=== PATIENT | female | born 1945 | race Caucasian/White ===

== ENCOUNTER 2022-08-26 10:20 | Emergency (ER) | payer MEDICARE, SELFPAY ==
[2022-08-26 10:28] VITALS: BP 190/76; PULSE 75; RESP 16; TEMP 36.8; O2SAT 96; BMI 25.8
[2022-08-26 10:33] VITALS: RESP 18
--- NOTE | 2022-08-26 10:37 | ED.GENADULT ---
HPI - General Adult General Chief complaint: General Medical Stated complaint: high bp Time Seen by Provider: 08/26/22 10:26 Source: patient Mode of arrival: ambulatory Limitations: no limitations History of Present Illness HPI narrative: this is 77 yo presented with asyntomatic HTN,she was started on amlodipine she did not tolerated the amlopidine constipation she has no chest pain nor SOB .She visited [facility] ED she had blood work she did not see a provider Onset (ago): day(s) (2) Radiation: non-radiation Relieving factors: none Exacerbating factors: none Associated symptoms: denies other symptoms Related Data Previous Rx's Medication Instructions Recorded lisinopril 10 mg tablet 10 mg PO DAILY #14 tabs 08/26/22 Allergies Allergy/AdvReac Type Severity Reaction Status Date / Time azithromycin Allergy Unknown Verified 08/26/22 10:34 sulfamethoxazole Allergy Unknown Verified 08/26/22 10:34 [From Bactrim] trimethoprim [From Bactrim] Allergy Unknown Verified 08/26/22 10:34 Review of Systems Review of Systems: Yes all other systems are reviewed and are negative Cardiovascular: Cardiovascular: Reports no additional cardiovascular complaints and Denies chest pain Respiratory: Respiratory: Reports no additional respiratory complaints and Denies cough Gastrointestinal: Gastrointestinal: Reports no additional gastrointestinal complaints [facility] Past Medical History [facility] Narrative: HTN Social History Social History Alcohol intake: unknown Smoked in Last 30 Days: No Use of substances other than those prescribed or required for medical reasons: Unknown Advance Directives: Yes Advance Directives on File: No Physical Exam ED Vital Signs: Vital Signs - 24 hr 08/26/22 10:28 08/26/22 10:33 08/26/22 11:50 Temperature 98.2 F 97.5 F Pulse Rate 75 66 Respiratory Rate 16 18 18 Blood Pressure 190/76 H 172/79 H Pulse Oximetry 96 98 Oxygen Delivery Method Room Air Room Air BMI result Body Mass Index 25.8 Const General: cooperative Nutritional Appearance: average body habitus Orientation/consciousness: oriented to person, oriented to time and patient oriented x3 HENMT Head: Yes normal to inspection Face and sinus: Yes normal facial exam Mouth: Normal oral and palatal mucosa present Teeth and gingiva: dentition normal Neck Neck: Yes full ROM Chest Chest palpation & inspection: normal inspection of the chest Resp Effort & Inspection: normal respiratory effort Auscultation: clear to auscultation bilaterally Cardio Jugular venous distension: no JVD Rate: regular rate Rhythm: regular rhythm GI Inspection: Yes normal to inspection Palpation (GI): Soft to palpation Skin General skin exam: no rashes or lesions noted Rashes: no rashes Neuro General: oriented to person, oriented to time and patient oriented x3 Cranial nerves: Yes CN's II-XII intact bilaterally Course Reevaluation(s) Reevaluation #1: Call placed to PCP [facility] Time: 10:47 Reevaluation #2: # 2 call to PCP no return call Reevaluation #3: I was able to speak with the nurse covering [facility] (PCP of the pt) she will make sure she will have appointment in the next few Days Time: 12:16 Medications Administered Discontinued Medications Generic Name Dose Route Start Last Admin Trade Name Freq PRN Reason Stop Dose Admin Lisinopril 10 mg 08/26/22 10:46 08/26/22 10:56 Lisinopril 10 Mg Tablet PO 08/26/22 10:47 10 mg ONCE ONE Administration Protocol Medical Decision Making Medical Decision Making [facility] Narrative: pt presented with asyntomatic HTN,as per [facility] Policy pt with asymptomatic HTN should be referred for outpatient follow up I will conctact her PCP Admission/Observation Consideration of admission/observation: Escalation of care including admission/observation considered Independent Interpretation I performed an independent interpretation of an: EKG Interpretation: NSR 68 no ischemic changes Tests considered The following testing was considered but not selected: considered blood work but not necessary per [facility] policy on asymptomatic HTN Chronic Conditions HTN Discharge Plan Discharge Clinical Impression: HTN (hypertension) Patient Disposition: Home, Self-Care Instructions: Hypertension (ED) Additional Instructions: Please call your primary Care Doctor Sunday Morning and arrange follow up,Blood Pressure need to be treated by Primary care doctor ,we will help you and give you 2 weeks supply for lisinopril 10 mg daily Prescriptions: New lisinopril 10 mg tablet 10 mg PO DAILY Qty: 14 0RF Referrals: Carlita Villegas MD [Primary Care Provider] - 2 days
--- NOTE | 2022-08-26 10:46 | ECG_ITS ---
Test Reason : HYPERTENTION Blood Pressure : / mmHG Vent. Rate : 068 BPM Atrial Rate : 068 BPM P-R Int : 134 ms QRS Dur : 074 ms QT Int : 398 ms P-R-T Axes : 074 049 073 degrees QTc Int : 423 ms Normal sinus rhythm Possible Left atrial enlargement Borderline ECG No previous ECGs available Referred By: Alon Escobar Electronically Signed By:SHANTA BOTELLO MD
--- NOTE | 2022-08-26 10:51 | PC.NURSE ---
Records request faxed to [facility] per provider request.
[2022-08-26] MEDS: lisinopriL 10 MG TABLET PO (10:56)
[2022-08-26 11:50] VITALS: BP 172/79; PULSE 66; RESP 18; TEMP 36.4; O2SAT 98
== END 2022-08-26 12:32 | disposition home or self-care (01) ==
PROVIDERS: Emergency Provider Emergency Medicine; PCP Internal Medicine
DX: I10 Essential (primary) hypertension (principal)
CPT/HCPCS: 93005; 99283; 99284

== ENCOUNTER 2023-11-19 21:11 | Emergency (ER) | payer MEDICARE, SELFPAY ==
--- NOTE | ~2023-11-19 | XR_ITS ---
EXAMINATION: XR WRIST, LEFT CLINICAL INFORMATION: Post reduction. COMPARISON: None available. TECHNIQUE: PA and lateral views of the left wrist. FINDINGS: There is improved alignment of the distal radial fracture status post closed reduction and casting. Cast material obscures overlying fine osseous detail. There is near neutral tilt of the distal radial articular surface on these images with slight persistent vertex anterior angulation at the fracture site. 4 mm negative ulnar variance. The transverse ulnar fracture is not well-seen. Bones are osteopenic. XR/XR wrist LT 2V IMPRESSION: Improved alignment of the distal radial fracture status post closed reduction and casting.
--- NOTE | ~2023-11-19 | XR_ITS ---
EXAMINATION: XR WRIST, LEFT CLINICAL INFORMATION: Left wrist, injury COMPARISON: None available. TECHNIQUE: PA, lateral, and oblique views of the left wrist. FINDINGS: There is a comminuted intra-articular fracture of the distal radius with vertex anterior angulation the fracture site and resultant dorsal tilt of the distal radial articular surface (43 degrees). A transverse fracture is also noted at the distal ulna without significant displacement. Surrounding soft tissues are edematous. Carpal bones appear intact. 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 XR/XR wrist LT min 3V IMPRESSION: Comminuted intra-articular fracture of the distal radius with dorsal tilt of the distal radial articular surface. Nondisplaced transverse fracture of the distal ulna.
[2023-11-19 21:43] VITALS: PULSE 73; RESP 16; TEMP 36.6; O2SAT 96; BMI 25.7
--- NOTE | 2023-11-19 23:25 | ED.GENADULT ---
HPI - General Adult General Chief complaint: Fall Stated complaint: L Wrist Inj/ Fall Time Seen by Provider: 11/19/23 23:25 History of Present Illness HPI narrative: The patient is a 78-year-old female who says that she went to her mailbox to get her mail. She says that she felt slightly dizzy after getting her mail and then turned around. When she turned she lost her balance and fell injuring her left wrist. She did not hit her head. There was no loss of consciousness. She did not injure anything other than her left wrist. No headache. No chest pain. Related Data Previous Rx's ?Medication ?Instructions ?Recorded lisinopril 10 mg tablet 10 mg PO DAILY #14 tabs 08/26/22 Allergies Allergy/AdvReac Type Severity Reaction Status Date / Time azithromycin Allergy Unknown Verified 11/19/23 21:44 sulfamethoxazole Allergy Unknown Verified 11/19/23 21:44 [From Bactrim] trimethoprim [From Bactrim] Allergy Unknown Verified 11/19/23 21:44 Review of Systems Review of Systems: Yes all other systems are reviewed and are negative [facility] Social History Social History Unable to assess alcohol history related to: Unknown Alcohol intake: unknown Smoked in Last 30 Days: No Advance Directives: No Advance Directives Information Provided: Yes Physical Exam ED Vital Signs: Vital Signs - 24 hr 11/19/23 21:43 11/20/23 00:52 Temperature 97.9 F 98.1 F Pulse Rate 73 80 Respiratory Rate 16 18 Blood Pressure 167/78 H Pulse Oximetry 96 96 Oxygen Delivery Method Room Air Room Air BMI result Body Mass Index 25.7 Const Other: The patient is awake and alert and does not appear in obvious distress. HENMT Other: No signs of trauma to the head. Eyes Other: Equal, conjunctivae clear Neck Other: Moving her neck easily Resp Effort & Inspection: normal respiratory effort Cardio Other: Good perfusion to the left hand, normal radial pulse of the left Skin Other: The skin is intact Neuro Other: Intact Sensation in the fingers Extrem Other: There is a silver fork type deformity at the left wrist. She is tender at the site of the deformity. Medications Administered Discontinued Medications Generic Name Dose Route Start Last Admin Trade Name Freq PRN Reason Stop Dose Admin Bupivacaine HCl 10 ml 11/19/23 23:33 11/19/23 23:44 Bupivacaine Mpf 0.25 % 10 Ml Vial INFILTRATI 11/19/23 23:34 10 ml ONCE ONE Administration Procedures Orthopedic Fracture Reduction Fracture #1: Time Out Performed: Yes Side: left Fracture Reduction Location: radius Analgesia: hematoma block Technique: finger traps Post Reduction X-rays Demonstrate: acceptable reduction Post-reduction neuro exam: intact Post-reduction vascular exam: intact Splint Applied: Yes Patient Tolerated Procedure: well Additional Comments: Sugar-tong splint applied with cast padding and Mike bandages. Medical Decision Making Medical Decision Making [facility] Narrative: The patient is a right-hand dominant 78-year-old who sustained a left wrist fracture when she fell in front of her house today. This is an isolated injury. It is a closed fracture. Dorsal angulation of the fracture fragment. I explained to the patient that a reduction of the deformity would be appropriate. She agreed to a planned closed reduction. I administered a hematoma block using 10 mL of 0.25 bupivacaine injected into the fracture hematoma. I prepped the skin of the dorsal wrist with Betadine and then used a 21 gauge needle to inject 10 mL of the bupivacaine under sterile conditions. The patient received good from the hematoma block. The arm was then hung from the index and ring fingers with weights at the elbow. Applied a sugar-tong splint with cast padding and Mike bandages. Postreduction x-rays showed improved alignment of the fracture fragments. The patient will be given a sling. She is advised to keep the fracture elevated. She should contact the orthopedic office in the morning. She will use Tylenol as needed for pain. Discharge Plan Discharge Clinical Impression: Closed fracture of left wrist Patient Disposition: Home, Self-Care Instructions: Wrist Fracture in Adults (ED) Additional Instructions: Keep your arm elevated so that the injury is at the level of your heart or higher. You may take 2 extra-strength acetaminophen (Tylenol up to 3 times a day as needed for pain. Contact the orthopedic office in the morning to set up a follow up appointment for further management of your fracture. Return to the emergency room if worse. Prescriptions: No Action lisinopril 10 mg tablet 10 mg PO DAILY Qty: 14 0RF Referrals: Debbie Zamorano MD [Physician] - (colles' type fracture) Print Language: Swazi
[2023-11-19] MEDS: BUPivacaine MPF 0.25 % 10 ML VIAL INFILTRATI (23:44)
[2023-11-20 00:52] VITALS: BP 167/78; PULSE 80; RESP 18; TEMP 36.7; O2SAT 96
--- NOTE | 2023-11-20 01:04 | MHC.EDTECH ---
Assisted with a sugar tongue to left arm,patient tolerated well, sling then applied per providers order.
[2023-11-20 01:23] VITALS: BP 118/80; PULSE 65; RESP 18; TEMP 36.6; O2SAT 100
[2023-11-20] MEDS: Acetaminophen 325 MG TABLET 975 MG PO (01:23)
== END 2023-11-20 01:24 | disposition home or self-care (01) ==
PROVIDERS: Emergency Provider Emergency Medicine; PCP Internal Medicine
DX: S52.502A Unspecified fracture of the lower end of left radius, initial encounter for closed fracture (principal); W18.30XA Fall on same level, unspecified, initial encounter; Y93.89 Activity, other specified; Y92.008 Other place in unspecified non-institutional (private) residence as the place of occurrence of the external cause; Y99.9 Unspecified external cause status
CPT/HCPCS: 25605; 29125; 73100; 73110; 99284; J0665

== ENCOUNTER 2023-11-21 09:50 | Outpatient (REF) | payer MEDICARE, SELFPAY ==
--- NOTE | ~2023-11-21 | XR_ITS ---
EXAMINATION: XR WRIST, LEFT CLINICAL INFORMATION: Pain. COMPARISON: Radiographs dated 11/20/2023 and 11/19/2023. TECHNIQUE: PA, lateral, and oblique views of the left wrist. FINDINGS: Fine bony detail is limited by overlapping cast material. There is 3 mm of posterior displacement of the distal radial fracture fragment, and the ulnar fracture fragment is in near-anatomic alignment. No dislocation is seen. There is mild generalized soft tissue swelling. No foreign body or soft tissue gas is seen. XR/XR wrist LT min 3V IMPRESSION: There is approximately 3 mm of posterior displacement of the distal left radial fracture fragment, and the distal left ulnar fracture fragment is in near anatomic alignment.
== END 2023-11-21 09:51 | disposition home or self-care (01) ==
LOC: HO.HOSX 09:50
PROVIDERS: Visit Provider Physician Assistant
DX: S52.502A Unspecified fracture of the lower end of left radius, initial encounter for closed fracture (principal); S52.602A Unspecified fracture of lower end of left ulna, initial encounter for closed fracture; W18.30XA Fall on same level, unspecified, initial encounter; Y93.9 Activity, unspecified; Y92.007 Garden or yard of unspecified non-institutional (private) residence as the place of occurrence of the external cause
CPT/HCPCS: 73110; 99202

== ENCOUNTER 2023-11-21 11:33 | Outpatient (AMB) | payer MEDICARE, SELFPAY ==
--- NOTE | 2023-11-21 11:46 | A.OFFVIS_ITS ---
Intake Vital Signs 11/21/23 11:52 Height 5 ft 3 in Weight 144 lb BMI 25.5 Handedness Right Intake Visit Reasons: FC - Left Distal Radius Fx 11/19/23 - Reduced Intake Note: Dayna is a 78 year old right hand dominant female who presents today with her daughter Aviva for a evaluation of her left wrist fx, DOI 11/19/23. Patient reports she went to her mailbox to get her mail. She reveals that she felt slightly dizzy after getting her mail and then turned around. When she turned she lost her balance and fell injuring her left wrist. Currently she is doing well, howver she is noticing swelling ing her fingers. SHe finds relief with taking tylenol. Allergies azithromycin Allergy (Verified 11/21/23 11:49) Unknown sulfamethoxazole [From Bactrim] Allergy (Verified 11/21/23 11:49) Unknown trimethoprim [From Bactrim] Allergy (Verified 11/21/23 11:49) Unknown HPI FC - Left Distal Radius Fx 11/19/23 - Reduced HPI Details 78-year-old right hand dominant female naty white presents with her daughter, Aviva, in the office today, as a new patient, for an evaluation of left wrist pain. Patient presented to the ED on 11/19/2023 status post getting dizzy when getting her mail, causing her to lose her balance and fall onto her left wrist. X-rays were obtained pre and post reduction. Her wrist was reduced while in the ED. She was placed in a sugar-tong splint with cast padding and an HANY bandage. She was also given a sling. While in the office today the patient reports she went to the mailbox to get her mail when she felt dizzy and lost her balance. She states she is currently doing well. However, she noticed swelling in her fingers. She finds relief with Tylenol. She denies numbness or tingling. Patient reports anesthesia makes her sick. Her daughter states she has bad reactions, like migraines, and is not sure what other reactions are. Patient has an allergy history, as follows: -Azithromycin; unknown -Sulfamethoxazole; unknown -Trimethoprim; unknown Patient is currently taking, as follows: -Lisinopril 10 mg PO daily Patient has a medical history, as follows: -Hypertension Patient has no known surgical history. [facility] Social History (Updated 11/21/23 @ 11:50 by Edward Casiano) Unable to assess alcohol history related to: Unknown Alcohol intake: never Patient Tobacco Use Status: Never used Tobacco Current occupation: right hand dominant Review of Systems Const All systems reviewed & are unremarkable except as noted in HPI and below Physical Exam Vital Signs: BMI result Body Mass Index 25.5 Const General: cooperative, healthy appearing, comfortable, no acute distress, well developed, alert and awake Orientation/consciousness: patient oriented x3 HEENT Head: Yes normal to inspection, Yes normocephalic and Yes atraumatic Eyes General: appearance normal, both eyes and all related structures Neck Neck: Yes normal visual inspection and Yes no lymphadenopathy Resp Effort & Inspection: normal respiratory effort and able to speak in complete sentences Cardio Rate: regular rate Peripheral pulses: Peripheral pulses 2+ throughout GI Inspection: Yes normal to inspection Palpation (GI): Soft to palpation Skin General skin exam: no rashes or lesions noted Neuro General: patient oriented x3 Extrem Other: Left upper extremity: Left upper extremity is currently in a splint. Moderate edema in the fingers. Able to flex and extend all digits. Has full sensation. Capillary refill is brisk. Psych Mental Status: mental status grossly normal Assessment & Plan Assessment & Plan (1) Fracture of left distal radius: Code(s): S52.502A - Unspecified fracture of the lower end of left radius, initial encounter for closed fracture Plan Ms. Goldberg is a 78-year-old right hand dominant female who presents with her daughter, Aviva, in the office today, as a new patient, for an evaluation of left wrist pain. Patient presented to the ED on 11/19/2023 status post getting dizzy when getting her mail, causing her to lose her balance and fall onto her left wrist. X-rays were obtained pre and post reduction. Her wrist was reduced while in the ED. She was placed in a sugar-tong splint with cast padding and an HANY bandage. She was also given a sling. While in the office today the patient reports she went to the mailbox to get her mail when she felt dizzy and lost her balance. She states she is currently doing well. However, she noticed swelling in her fingers. She finds relief with Tylenol. She denies numbness or tingling. Patient reports anesthesia makes her sick. Her daughter states she has bad reactions, like migraines, and is not sure what other reactions are. Patient has an allergy history, as follows: -Azithromycin; unknown -Sulfamethoxazole; unknown -Trimethoprim; unknown Patient is currently taking, as follows: -Lisinopril 10 mg PO daily Patient has a medical history, as follows: -Hypertension Patient has no known surgical history. I discussed in detail the procedure and what to expect pre and post operatively. We discussed the risks, benefits and alternatives to the surgery and the rehabilitation course. The risks include infection, bleeding, nerve injury, ongoing pain, swelling, and stiffness, perioperative risk of injury to bones and soft tissues, and blood clots. I have answered all questions and with their understanding they have consented to move forward with a left wrist ORIF to be performed on 11/29/[address] Debbie Zamorano. The case was discussed with Dr. Zamorano who was available to speak with me, but no available to see the patient and a collaborative treatment plan was made. The patient will remain in the splint she was given in the ED. We discussed for the patient to continue to monitor for edema in the left wrist. Should the edema severely increase or cause concern I encourage the patient or her daughter to call the office. I recommend working on motion in the digits of the left hand. A prescription for scopolamine base patch transdermal Q3D PRN for nausea to be applied on Sunday or Sunday (11/27/2023 or 11/28/2023). Her daughter was informed to discuss with Anesthesia about the prior reactions to anesthesia and concerns she may have about her mother when they call prior to surgery. A signed consent form was supplied to the director medical surgical in the office today. Follow- up will be at her post operative appointment, or sooner if needed. X-rays of the left wrist which were obtained while in the office today and were reviewed by me, Aviva Nick PA-C, redemonstrated a left distal radius fracture with dorsal angulation. X-rays of the left wrist (post-reduction), obtained on 11/20/2023, revealed: Improved alignment of the distal radial fracture status post closed reduction and casting. X-rays of the left wrist (pre-reduction), obtained on 11/20/2023, revealed: Comminuted intra-articular fracture of the distal radius with dorsal tilt of the distal radial articular surface. Nondisplaced transverse fracture of the distal ulna. Orders: Orders XR wrist LT min 3V Today M25.539 - Pain in unspecified wrist Medications: New scopolamine base 1 patch transdermal Q3D PRN 4 ea 0RF motion sickness Patient Instructions: Scribed by Svetlana Barajas medical esthetician, for Aviva Nick PA-C on 11/20/2023 at 11:39 am, EST. Coding Level of Care Code New Pt Level 4 (54816) Diagnoses Fracture of left distal radius S52.502A
[2023-11-21 11:52] VITALS: BMI 25.5
== END 2023-11-21 12:15 | disposition home or self-care (01) ==
PROVIDERS: PCP Internal Medicine; Visit Provider Physician Assistant
DX: S52.502A Unspecified fracture of the lower end of left radius, initial encounter for closed fracture (principal)
CPT/HCPCS: 99204

== ENCOUNTER 2023-11-29 08:55 | Day surgery (SDC) | payer MEDICARE, SELFPAY ==
--- NOTE | 2023-11-27 12:45 | HO.ANESPROP2 ---
Documented by User: Janie Jay NP 11/27/23 12:48 HPI - Anesthesia Eval Consult details Narrative: 78yo F for Left Radius Distal Fracture ORIF PONV - rx'd scop patch by ortho provider... [facility] Active Problems Active Problems: All Active Problems Fracture of left distal radius (Acute) Past Medical History Medical History Osteoporosis Allergies Elevated cholesterol PONV (postoperative nausea and vomiting) HTN (hypertension) Surgical History Surgical History Hx of colonoscopy Hx of left cataract extraction Hx of hysterectomy Hx of tonsillectomy Social History Social History Unable to assess alcohol history related to: Unknown Alcohol intake: never Patient Tobacco Use Status: Never used Tobacco Use of substances other than those prescribed or required for medical reasons: No Are you DNR?: No Advance Directives: No Advance Directives Information Provided: Yes Current occupation: right hand dominant Meds Allergies Allergy/AdvReac Type Severity Reaction Status Date / Time azithromycin Allergy Unknown Verified 11/29/23 09:21 sulfamethoxazole Allergy Unknown Verified 11/29/23 09:21 [From Bactrim] trimethoprim [From Bactrim] Allergy Unknown Verified 11/29/23 09:21 Home Medications ?Medication ?Instructions ?Recorded ?Confirmed ?Last Taken ?Type acetaminophen 500 mg tablet 1,000 mg PO TID PRN Pain 11/29/23 11/29/23 Unknown History (Acetaminophen Extra Strength) alendronate 70 mg tablet 70 mg PO QWEEK 11/29/23 11/29/23 Unknown History aspirin 81 mg tablet 81 mg PO DAILY 11/29/23 11/29/23 Unknown History calcium 600 mg capsule 600 mg PO DAILY 11/29/23 11/29/23 Unknown History cetirizine 10 mg tablet 10 mg PO DAILY 11/29/23 11/29/23 Unknown History dextromethorphan-guaifenesin 30 1 tab PO Q12H PRN Cough 11/29/23 11/29/23 Unknown History mg-600 mg tablet extended [id number] hr docusate sodium 100 mg tablet 100 mg PO DAILY 11/29/23 11/29/23 Unknown History multivitamin 1 tab PO DAILY 11/29/23 11/29/23 Unknown History pravastatin 10 mg tablet 10 mg PO DAILY 11/29/23 11/29/23 Unknown History Assessment and Plan Assessment Anesthesia Assessment: Chart Reviewed Documented by User: Kelsie Gastelum MD 11/29/23 11:28 [facility] Past Medical History Medical History Osteoporosis Allergies Elevated cholesterol PONV (postoperative nausea and vomiting) HTN (hypertension) Family History Family history of problems with anesthesia: No Surgical History Surgical History Hx of colonoscopy Hx of left cataract extraction Hx of hysterectomy Hx of tonsillectomy History of Problems with Anesthesia: No Social History Social History Unable to assess alcohol history related to: Unknown Alcohol intake: never Patient Tobacco Use Status: Never used Tobacco Use of substances other than those prescribed or required for medical reasons: No Are you DNR?: No Advance Directives: No Advance Directives Information Provided: Yes Current occupation: right hand dominant Meds Allergies Allergy/AdvReac Type Severity Reaction Status Date / Time azithromycin Allergy Unknown Verified 11/29/23 09:21 sulfamethoxazole Allergy Unknown Verified 11/29/23 09:21 [From Bactrim] trimethoprim [From Bactrim] Allergy Unknown Verified 11/29/23 09:21 Home Medications ?Medication ?Instructions ?Recorded ?Confirmed ?Last Taken ?Type acetaminophen 500 mg tablet 1,000 mg PO TID PRN Pain 11/29/23 11/29/23 Unknown History (Acetaminophen Extra Strength) alendronate 70 mg tablet 70 mg PO QWEEK 11/29/23 11/29/23 Unknown History aspirin 81 mg tablet 81 mg PO DAILY 11/29/23 11/29/23 Unknown History calcium 600 mg capsule 600 mg PO DAILY 11/29/23 11/29/23 Unknown History cetirizine 10 mg tablet 10 mg PO DAILY 11/29/23 11/29/23 Unknown History dextromethorphan-guaifenesin 30 1 tab PO Q12H PRN Cough 11/29/23 11/29/23 Unknown History mg-600 mg tablet extended [id number] hr docusate sodium 100 mg tablet 100 mg PO DAILY 11/29/23 11/29/23 Unknown History multivitamin 1 tab PO DAILY 11/29/23 11/29/23 Unknown History pravastatin 10 mg tablet 10 mg PO DAILY 11/29/23 11/29/23 Unknown History Exam Airway Mallampati Class: II TM Dist: >3cm Neck ROM: Full Heart: rrr Lungs: cta Assessment and Plan Assessment Anesthesia Assessment: Anesthesia Plan Discussed Final Anesthetic Review Family History of Problems with Anesthesia: No History of Problems with Anesthesia: No NPO: Yes ASA Class: III Final Preanesthetic Review: No Changes in Pt Med Stat, Meds/Allgs Chart Reviewed, Consent Obtained/Reviewed and Anes Risks/Benef Reviewed Patient Risk: Intermediate Procedure Risk: Intermediate Anesthetic Plan Anesthetic Plan: GA and Regional Block Disposition: Standard PACU
[2023-11-29] VITALS (7 sets, daily range): BP systolic 132–152; BP diastolic 57–72; PULSE 83–90; RESP 16; TEMP 36.4–36.8; O2SAT 94–99; BMI 25.3
--- NOTE | ~2023-11-29 | FL_ITS ---
EXAMINATION: XR FLUOROSCOPY WITH IMAGES CLINICAL INFORMATION: Distal radius fracture COMPARISON: 11/21/2023 TECHNIQUE: Fluoroscopy Supervised By: Physician. Fluoroscopy Time: 16.84 seconds. Cumulative Dose: 0.508 mGy. DAP: 0.0307 Gycm2. Images: 4. FINDINGS: Fluoroscopy provided for the purposes of surgical hardware placement. FL/FL guidance in OR IMPRESSION: Fluoroscopy provided.
--- NOTE | 2023-11-29 09:28 | P.OP_ITS ---
Operative Note Operative Note Date of Service: 11/29/23 Narrative: Operative Note Narrative: Preop diagnosis: 1. Left Distal radius fracture Postop diagnosis: Same Procedure: 1. Left Distal radius fracture open reduction internal fixation extra-articular Surgeon: Debbie Zamorano MD Anesthesia: General anesthesia plus regional block Findings: Metaphyseal distal radius fracture Implants: A 3 hole narrow Accu Med volar locking plate, with 5x 2.3 mm locking pegs/screws, and 3 x 3.5 mm cortical screws Tourniquet time: 36 minutes EBL: 5.0 ml Specimen: None Drains: None Complications: None Disposition: Brought to the recovery room in stable condition Plan: Follow-up in 10-14 days for wound check, suture removal and postop radiographs The patient will be placed in a volar wrist splint. Encouraged no lifting of anything heavier than a cell phone. Please encourage active and passive range of motion of the digits. Follow-up at 4-5 weeks postop for repeat radiographs. Indications: The patient is a 78 year old woman with left distal radius fractu re . The risks and benefits of operative treatment, including but not limited to risk of damage to blood vessels, nerves, tendons, infection, recurrence, persistent pain or numbness, incomplete resolution of preoperative symptoms, or need for further surgery were discussed with the patient and they wished to proceed with surgery. Procedure: Once consent was obtained patient was brought back to the operating suite and placed in the operating table in a supine position. A regional block was performed by the anesthesia team. Perioperative antibiotics and anesthesia was administered by the anesthesia team. A tourniquet was applied to the proximal aspect of the left upper extremity and the limb was prepped and draped in a standard surgical fashion. The limb was elevated exsanguinated with Esmarch bandage and the tourniquet inflated to 250 mm of mercury for a total tourniquet time of 36 minutes. The FluoroScan was used throughout the case to assess our reduction, and facilitate implant placement. A gentle closed reduction was 1st performed on the patient's left distal radius fracture. Was assessed radiographically before proceeding with the reduction internal fixation. I then made an 8 cm longitudinal incision over the distal aspect of the flexor carpi radialis tendon. The incision was made through the skin to the subcutaneous tissue using a 15. Blade. Then carefully dissected down to flexor carpi radialis tendon she tenotomy scissors. The FCR tendon sheath was then incised longitudinally using tenotomy scissors under direct visualization. The FCR tendon was then retracted ulnarly. I then made a longitudinal incision in the volar forearm fascia through the floor of FCR tendon sheath using tenotomy scissors under direct visualization. I identified the interval between the radial artery and the flexor tendons. This interval was developed further with my index finger, releasing some of the muscular fibers of the flexor pollicis longus. A dull weatlander retractor was then placed. I then created an ulnarly based flap of the pronator quadratus by releasing the radial and distal edges using a 15. Blade. A Toth elevator was used to elevate the pronator quadratus from the volar surface of the distal radius. This then revealed to us our distal radius fracture. An open reduction was then performed on our distal radius fracture. I then placed a short narrow 3 hole Accu Med volar locking plate on the volar surface of the distal radius. I placed a single K-wire through the distal aspect of the plate and into the distal radius. This was assessed using fluoroscopic images. I was satisfied with the placement of our plate. I then placed 5 X 2.3 mm locking screws/pegs in the distal aspect of the plate and distal radius by 1st drilling bicortically with a 1.8 mm drill bit, measuring with a depth gauge, and placing the appropriate length locking screws/pegs. The placement of our plate and screws was then assessed again using fluoroscopic images. The once satisfied with the placement of the volar locking plate and screws on the distal aspect of the distal radius, the plate was then reduced to the shaft of the radius. I then placed 3 x 3.5 mm cortical screws to the proximal aspect of the plate and into the shaft of the radius. This was done by 1st drilling bicortically with a 2.8 mm drill bit, measuring with a depth gauge, and placing the appropriate length screw. Final radiographs were then obtained. The DRUJ was assessed and found to be stable on exam. I was satisfied with our reduction and placement of all implants. At this point the wound was irrigated with normal saline. The tourniquet was then deflated and hemostasis was obtained with a brief period of local pressure and bipolar monopolar electrocautery. The subcutaneous layer was then reapproximated using some 4-0 Vicryl suture, and the skin edges were reapproximated using some 5 0 Prolene suture. The wound was then infiltrated with some 1% lidocaine with epinephrine postop pain control. A sterile dressing and a short dorsal splint allowing for active flexion and extension of the digits was applied. The patient appears to have tolerated the procedure well and with no complications. All digits were well vascularized conclusion of the case.
--- NOTE | 2023-11-29 09:28 | MHC.SHP ---
Pre-Procedural Eval Section A - 24 Hr Update-Section A only Date of Service: 11/29/23 The patient is an INPATIENT: No Changes since office visit: No Cold of Flu in the past 2 weeks, No New Medical Problems, No Changes in Medication and No Patient answered all questions The patient has been examined within 24 hours of the surgical procedure. The History & Physical has been completed within 30 days and I have reviewed it.: Yes Section B - Complete if H&P > 30 days Chief Complaint: Unspecified fracture of the lower end of left Allergies: Allergies Allergy/AdvReac Type Severity Reaction Status Date / Time azithromycin Allergy Unknown Verified 11/29/23 09:21 sulfamethoxazole Allergy Unknown Verified 11/29/23 09:21 [From Bactrim] trimethoprim [From Bactrim] Allergy Unknown Verified 11/29/23 09:21 Plan I have reviewed the history and physical and performed a pertinent physical examination on my patient. No changes have occurred unless specified. Time Spent With Patient Time: Total time managing care of this patient today ____ minutes.
[2023-11-29] MEDS: Lactated Ringers 1,000 ML 100 ML IVCONT (09:58)
== END 2023-11-29 15:40 | disposition home or self-care (01) ==
PROVIDERS: PCP Internal Medicine; Visit Provider Orthopaedic Surgery
PROC: (CPT 25607; principal; 2023-11-29 11:00)
DX: S52.552A Other extraarticular fracture of lower end of left radius, initial encounter for closed fracture (principal); W01.0XXA Fall on same level from slipping, tripping and stumbling without subsequent striking against object, initial encounter; Y93.89 Activity, other specified; Y92.007 Garden or yard of unspecified non-institutional (private) residence as the place of occurrence of the external cause; Y99.9 Unspecified external cause status; M25.532 Pain in left wrist; I10 Essential (primary) hypertension; Z79.899 Other long term (current) drug therapy; Z88.1 Allergy status to other antibiotic agents; Z88.2 Allergy status to sulfonamides
CPT/HCPCS: 25607; C1713; J0131; J0665; J0690; J1100; J2250; J2371; J2405; J2704; J2795; J3010

== ENCOUNTER → 2023-11-29 08:55 | Outpatient (BNV) | payer MEDICARE, SELFPAY | PROVIDERS: PCP Internal Medicine; Visit Provider Orthopaedic Surgery | DX: S52.502A Unspecified fracture of the lower end of left radius, initial encounter for closed fracture (principal) | CPT/HCPCS: 25607; 26727 ==

== ENCOUNTER 2023-12-12 13:27 | Outpatient (REF) | payer MEDICARE, SELFPAY ==
--- NOTE | ~2023-12-12 | XR_ITS ---
EXAMINATION: XR WRIST, LEFT CLINICAL INFORMATION: Left wrist pain. COMPARISON: 11/29/2023 fluoroscopy images, x-rays 11/21/2023 and dating back to 11/19/2023. TECHNIQUE: PA, lateral, and oblique views of the left wrist. FINDINGS: Status post ORIF of distal radial fracture with plate and screws. Hardware appears intact. There is improved alignment. Bones are diffusely demineralized. Redemonstration of negative ulnar variance. Redemonstration of previously noted transverse fracture of the distal ulna with some interval bridging callus formation. XR/XR wrist LT min 3V IMPRESSION: Status post ORIF of distal radial fracture with plate and screws. Hardware appears intact. There is improved alignment. Redemonstration of previously noted transverse fracture of the distal ulna with some interval bridging callus formation.
== END 2023-12-12 13:28 | disposition home or self-care (01) ==
LOC: HO.HOSX 13:27
PROVIDERS: Visit Provider Orthopaedic Surgery
DX: S52.502D Unspecified fracture of the lower end of left radius, subsequent encounter for closed fracture with routine healing (principal); S52.602D Unspecified fracture of lower end of left ulna, subsequent encounter for closed fracture with routine healing
CPT/HCPCS: 73110; 99212

== ENCOUNTER 2023-12-12 15:02 | Outpatient (AMB) | payer MEDICARE, SELFPAY ==
--- NOTE | 2023-12-12 15:22 | MHC.OFFVIS ---
Intake Visit Reasons: PO LT distal radius ORIF 11/29/23 AR Intake Note: Dayna 78 year old female presents today for her PO visit for her left distal radius ORIF from DOS 11/29/23 AR. Dressing removed and xrays updated on office. States she is having mild pain. Xrays updated in office. Allergies azithromycin Allergy (Verified 12/12/23 15:25) Unknown sulfamethoxazole [From Bactrim] Allergy (Verified 12/12/23 15:25) Unknown trimethoprim [From Bactrim] Allergy (Verified 12/12/23 15:25) Unknown HPI HPI PO LT distal radius ORIF 11/29/23 AR: Details: Dayna is a 78 year old right hand dominant woman who presents S/P left distal radius ORIF, DOS: 11/29/23. She is seen today with her daughter. She felt dizzy and fell outside on 11/19/23, injuring her left wrist. She says she is doing well overall, with some mild pain. She denies any numbness or tingling. [facility] Medical History Osteoporosis Allergies Elevated cholesterol PONV (postoperative nausea and vomiting) HTN (hypertension) Surgical History Hx of colonoscopy Hx of left cataract extraction Hx of hysterectomy Hx of tonsillectomy Social History Unable to assess alcohol history related to: Unknown Alcohol intake: never Patient Tobacco Use Status: Never used Tobacco Current occupation: right hand dominant Review of Systems Const All systems reviewed & are unremarkable except as noted in HPI and below Physical Exam Const General: no acute distress and alert Orientation/consciousness: patient oriented x3 Neuro General: patient oriented x3 Extrem Other: The patient was alert oriented and in no acute distress The incision is healing well with no erythema drainage or evidence of infection. Sutures removed and Steri-Strips applied She can make a fist and extend all her digits Wrist pronation: ~50 degrees Wrist supination: ~40 degrees Sensation is intact Cap refill is brisk Radiographs: 3 views of the left wrist were taken and viewed by me today in clinic. They show a distal radius fracture with satisfactory fracture alignment and position of all implants. There is also a distal ulna fracture with satisfactory fracture alignment. Psych Appearance: grossly normal Affect: normal affect Attitude: cooperative Assessment & Plan Assessment & Plan (1) Fracture of left distal radius: Code(s): S52.502A - Unspecified fracture of the lower end of left radius, initial encounter for closed fracture Category: Medical (2) Fracture of distal end of left ulna: Code(s): S52.602A - Unspecified fracture of lower end of left ulna, initial encounter for closed fracture Category: Medical Plan Assessment & Plan: 1. Left distal radius fracture, S/P ORIF From a fall, DOI: 11/19/23 DOS: 11/29/23 2. Left distal ulna fracture Satisfactory fracture alignment From a fall, DOI: 11/19/23 The patient appears to be doing well post-operatively I educated her & her daughter about the post-operative course She was fitted for a volar wrist splint, to be worn like a cast except for showering, for the next 2 weeks. She can remove this while at rest to work on ROM. After 2 weeks she can remove her splint when at home & at night. She will continue to wear her splint when out of the house. I discussed activity modifications, she is to lift nothing heavier than a cellphone for the next 4 weeks She will perform gentle finger & wrist ROM exercises at home, when out of her splint She is to avoid any underwater activities for the next week She is to avoid any driving for the next 2 weeks. She will follow up in 4 weeks, with X-rays 3V L wrist Scribed for Debbie Zamorano MD by Chito Benson emergency medical technician, on 12/12/23 at 3:40 PM, EST. Orders: Orders XR wrist LT min 3V Today M25.532 - Pain in left wrist Coding Level of Care Code Global (77323) Diagnoses Fracture of left distal radius S52.502A Fracture of distal end of left ulna S52.602A
== END 2023-12-12 15:50 | disposition home or self-care (01) ==
PROVIDERS: PCP Internal Medicine; Visit Provider Orthopaedic Surgery
DX: S52.502A Unspecified fracture of the lower end of left radius, initial encounter for closed fracture (principal); S52.602A Unspecified fracture of lower end of left ulna, initial encounter for closed fracture
CPT/HCPCS: 99024

== ENCOUNTER 2024-01-08 10:20 | Outpatient (REF) | payer MEDICARE, SELFPAY ==
--- NOTE | ~2024-01-08 | XR_ITS ---
EXAMINATION: XR WRIST, LEFT CLINICAL INFORMATION: Pain in left wrist COMPARISON: 12/12/2023 TECHNIQUE: PA, lateral, and oblique views of the left wrist. FINDINGS: The patient is status post ORIF of distal radial fracture with plate and screws. Hardware appears intact. There is no change in position or alignment of the fracture fragments. The bones are diffusely demineralized. Again noted is negative ulnar variance. Again noted is transverse fracture the distal ulna with increased sclerosis along the fracture cleft. XR/XR wrist LT min 3V IMPRESSION: 1. Status post ORIF distal radial fracture without evidence of hardware complication. 2. Healing distal ulnar fracture.
== END 2024-01-08 10:21 | disposition home or self-care (01) ==
LOC: HO.HOSX 10:20
PROVIDERS: Visit Provider Orthopaedic Surgery
DX: S52.602D Unspecified fracture of lower end of left ulna, subsequent encounter for closed fracture with routine healing (principal); S52.502D Unspecified fracture of the lower end of left radius, subsequent encounter for closed fracture with routine healing
CPT/HCPCS: 73110; 99212

== ENCOUNTER 2024-01-08 13:47 | Outpatient (AMB) | payer MEDICARE, SELFPAY ==
--- NOTE | 2024-01-08 13:57 | A.OFFVIS_ITS ---
Intake Visit Reasons: PO LT distal radius ORIF 11/29/23 AR-w/xray Intake Note: Dayna 78 year old female presents today for her PO visit for her left distal radius ORIF from DOS 11/29/23 AR. States she has been wearing her brace as a cast and only comes out of it for ROM exercise and hygiene purpose. Xrays updated in office. States her only concern today is that her incision will open. Allergies azithromycin Allergy (Verified 01/08/24 14:04) Unknown sulfamethoxazole [From Bactrim] Allergy (Verified 01/08/24 14:04) Unknown trimethoprim [From Bactrim] Allergy (Verified 01/08/24 14:04) Unknown HPI HPI PO LT distal radius ORIF 11/29/23 AR-w/xray: Details: Dayna is a 78 year old right hand dominant woman who presents S/P left distal radius ORIF, DOS: 11/29/23. She is seen today with her son. She felt dizzy and fell outside on 11/19/23, injuring her left wrist. She says she is doing well overall, with some mild pain. She denies any numbness or tingling. She says she is concerned her incision will open. She says she has been starting to drive again. [facility] Medical History Osteoporosis Allergies Elevated cholesterol PONV (postoperative nausea and vomiting) HTN (hypertension) Surgical History Hx of colonoscopy Hx of left cataract extraction Hx of hysterectomy Hx of tonsillectomy Social History Unable to assess alcohol history related to: Unknown Alcohol intake: never Patient Tobacco Use Status: Never used Tobacco Current occupation: right hand dominant Physical Exam Const General: no acute distress and alert Orientation/consciousness: patient oriented x3 Neuro General: patient oriented x3 Extrem Other: The patient was alert oriented and in no acute distress The incision is well-healed with no erythema drainage or evidence of infection. At first she could bring her fingertips to ~2cm from her palm With encouragement, and after working on ROM exercises in clinic, she was able to make a weak fist and extend all her digits. Wrist pronation: ~80 degrees Wrist supination: ~75 degrees Wrist flexion: ~30 degrees Wrist extension: ~35 degrees Sensation is intact Cap refill is brisk Radiographs: 3 views of the left wrist were taken and viewed by me today in clinic. They show a distal radius fracture with satisfactory fracture alignment and position of all implants. There is also a distal ulna fracture with satisfactory fracture alignment. Psych Appearance: grossly normal Affect: normal affect Attitude: cooperative Assessment & Plan Assessment & Plan (1) Fracture of left distal radius: Code(s): S52.502A - Unspecified fracture of the lower end of left radius, initial encounter for closed fracture Category: Medical (2) Fracture of distal end of left ulna: Code(s): S52.602A - Unspecified fracture of lower end of left ulna, initial encounter for closed fracture Category: Medical Plan Assessment & Plan: 1. Left distal radius fracture, S/P ORIF From a fall, DOI: 11/19/23 DOS: 11/29/23 2. Left distal ulna fracture Satisfactory fracture alignment From a fall, DOI: 11/19/23 The patient appears to be doing well post-operatively I educated her & her daughter about the post-operative course She was fitted for a volar wrist splint, to be worn like a cast except for showering, for the next 2 weeks. She can remove this while at rest to work on ROM. She will discontinue her wrist splint at this time. She will continue to wear her splint when out of the house for the next 2 weeks I discussed activity modifications, she is to begin to use her hand for lightweight activities for the next 4 weeks She will work on wrist & finger ROM exercises at home. I ordered OT hand therapy to work on wrist & finger ROM exercises, with a focus on flexion, extension, and making a fist. She will follow up in 4 weeks for a ROM check, no X-rays unless she has a new injury Scribed for Debbie Zamorano MD by Chito Benson, medical leader, on 01/08/24 at 2:05 PM, EST. Orders: Orders XR wrist LT min 3V 01/08/24 M25.532 - Pain in left wrist OT Evaluation and Treatment 01/08/24 S52.502A - Unspecified fracture of the lower end of left radius, initial encounter for closed fracture, S52.602A - Unspecified fracture of lower end of left ulna, initial encounter for closed fracture Coding Level of Care Code Global (61740) Diagnoses Fracture of left distal radius S52.502A Fracture of distal end of left ulna S52.602A
== END 2024-01-08 14:26 | disposition home or self-care (01) ==
PROVIDERS: PCP Internal Medicine; Visit Provider Orthopaedic Surgery
DX: S52.502A Unspecified fracture of the lower end of left radius, initial encounter for closed fracture (principal); S52.602A Unspecified fracture of lower end of left ulna, initial encounter for closed fracture
CPT/HCPCS: 99024

== ENCOUNTER 2024-02-12 10:15 | Outpatient (AMB) | payer MEDICARE, SELFPAY ==
--- NOTE | 2024-02-12 10:22 | A.OFFVIS_ITS ---
Vital Signs 02/12/24 10:24 Height 5 ft 2 in Weight 140 lb BMI 25.6 Handedness Right Intake Visit Reasons: OV- f/u LT distal radius ORIF 11/29/23 Intake Note: Dayna is a 78 year old right hand dominant female who presents today for her post operative visit s/p left distal radius ORIF 11/29/23. Patient reports she has been wearing her splint at first for everything except showering and rest but has not been using it lately so she can allow her wrist to have more movement. She has been working on lightweight lifting, gentle ROM and states it has been coming along well. She soaks her hand in warm water every morning and massages her incision for relief. Has been going to OT twice a week and has one more visit this week. Improvement in ROM and is able to make a closed fist. Allergies azithromycin Allergy (Verified 02/12/24 10:25) Unknown sulfamethoxazole [From Bactrim] Allergy (Verified 02/12/24 10:25) Unknown trimethoprim [From Bactrim] Allergy (Verified 02/12/24 10:25) Unknown HPI HPI OV- f/u LT distal radius ORIF 11/29/23: Details: Dayna is a 78 year old right hand dominant woman who returns for a ROM check, S/P left distal radius ORIF, DOS: 11/29/23 & distal ulna fracture. She is seen today with her son. She felt dizzy and fell outside on 11/19/23, injuring her left wrist. She says she is doing well overall, and has been attending OT hand therapy. She feels her ROM has improved somewhat and she is happy with this. She has been soaking her hand in warm water every morning to help with her morning stiffness. She denies any numbness or tingling. [facility] Medical History Osteoporosis Allergies Elevated cholesterol PONV (postoperative nausea and vomiting) HTN (hypertension) Surgical History Hx of colonoscopy Hx of left cataract extraction Hx of hysterectomy Hx of tonsillectomy Social History Unable to assess alcohol history related to: Unknown Alcohol intake: never Patient Tobacco Use Status: Never used Tobacco Current occupational status: retired Current occupation: right hand dominant Physical Exam Vital Signs: BMI result Body Mass Index 25.6 Const General: no acute distress and alert Orientation/consciousness: patient oriented x3 Neuro General: patient oriented x3 Extrem Other: The patient was alert oriented and in no acute distress The incision is well-healed She was able to make a fist and extend all her digits. Fracture completely nontender Symmetrical pronosupination Wrist flexion: ~70 degrees Wrist extension: ~70 degrees Sensation is intact Cap refill is brisk Psych Appearance: grossly normal Affect: normal affect Attitude: cooperative Assessment & Plan Assessment & Plan (1) Fracture of left distal radius: Code(s): S52.502A - Unspecified fracture of the lower end of left radius, initial encounter for closed fracture Category: Medical (2) Fracture of distal end of left ulna: Code(s): S52.602A - Unspecified fracture of lower end of left ulna, initial encounter for closed fracture Category: Medical Plan Assessment & Plan: 1. Left distal radius fracture, S/P ORIF From a fall, DOI: 11/19/23 DOS: 11/29/23 2. Left distal ulna fracture Satisfactory fracture alignment From a fall, DOI: 11/19/23 The patient appears to be doing well post-operatively She will discontinue her splint at this time. She can resume all normal activities as tolerated She will continue to work on wrist & finger ROM exercises at home. She will continue to attend OT hand therapy, her last scheduled session is on 02/13/24. She is very happy with the results of her surgery in her care. She will follow up prn. Scribed for Debbie Zamorano MD by Chito Benson biomedical instrument technician, on 02/12/24 at 10:50 AM, EST. Coding Level of Care Code Global (80381) Diagnoses Fracture of left distal radius S52.502A Fracture of distal end of left ulna S52.602A
[2024-02-12 10:24] VITALS: BMI 25.6
== END 2024-02-12 10:53 | disposition home or self-care (01) ==
PROVIDERS: PCP Internal Medicine; Visit Provider Orthopaedic Surgery
DX: S52.502A Unspecified fracture of the lower end of left radius, initial encounter for closed fracture (principal); S52.602A Unspecified fracture of lower end of left ulna, initial encounter for closed fracture
CPT/HCPCS: 99024

== ENCOUNTER → 2024-02-12 10:15 | Outpatient (BNVA) | payer MEDICARE, SELFPAY | PROVIDERS: PCP Internal Medicine; Visit Provider Orthopaedic Surgery | DX: S52.502D Unspecified fracture of the lower end of left radius, subsequent encounter for closed fracture with routine healing (principal); S52.602D Unspecified fracture of lower end of left ulna, subsequent encounter for closed fracture with routine healing | CPT/HCPCS: 99212 ==

== ENCOUNTER 2024-02-14 11:00 | Outpatient (RCR) | payer MEDICARE, SELFPAY | END 2024-02-14 12:56 | disposition home or self-care (01) | LOC: HO.OT 11:00 | PROVIDERS: PCP Internal Medicine; Visit Provider Orthopaedic Surgery | DX: S52.602D Unspecified fracture of lower end of left ulna, subsequent encounter for closed fracture with routine healing (principal); S52.502D Unspecified fracture of the lower end of left radius, subsequent encounter for closed fracture with routine healing | CPT/HCPCS: 97035; 97110; 97112; 97140; 97166; 97530 ==

== ENCOUNTER 2024-10-10 14:30 | Inpatient (IN) | payer MEDICARE, SELFPAY ==
--- NOTE | ~2024-10-10 | XR_ITS ---
CLINICAL HISTORY: post reduction 2 view right wrist Comparison: CR/AL - XR WRIST RT MIN 3V - 10/10/24 20:25 EST CR/SR - XR WRIST RT MIN 3V - 10/10/24 15:28 EST Findings: Acute displaced fracture of the distal radial and ulna metaphysis. No radiopaque foreign body. IMPRESSION: Postreduction of the distal radial and ulnar fracture. This document has been electronically signed by: Duc Nunez MD on 10/10/2024 21:25:09
--- NOTE | ~2024-10-10 | CT_ITS ---
EXAMINATION: CT CERVICAL SPINE WITHOUT CONTRAST CLINICAL INFORMATION: Status post fall. COMPARISON: None available. TECHNIQUE: Contiguous axial images through the cervical spine using 3 mm collimation with bone and soft tissue algorithm. Sagittal and coronal reformatted images acquired. This CT examination was performed using dose optimization techniques as appropriate, variously including the following: *Automated exposure control *Adjustment of mA and/or kV according to patient size (this includes techniques or standardized protocols for targeted exams where dose is matched to indication/reason for exam; i.e. extremities or head) *Use of iterative reconstruction technique DLP: 259 mGy centimeter. FINDINGS: Craniocervical junction is intact. Degenerative changes in the periodontal C1 region and the right occipital condyle C1 joint. Multilevel marginal osteophyte formation and endplate sclerosis subchondral cyst formation and decreased intervertebral disc height C3 C5 and C6-7 levels. Grade 1 anterolisthesis C7-T1 likely degenerative. Multilevel facet joint hypertrophy more conspicuous at C3-4 C6-7 and to a lesser extent C4-5. C1 is intact. C2 is intact. C3 is intact. Right facet joint hypertrophy. C4 is intact. Bilateral facet joint hypertrophy. C5 is intact. Left-sided facet joint hypertrophy. C6 is intact. Left-sided facet joint hypertrophy. C7 is intact. Facet joint hypertrophy bilaterally. No prevertebral compartment hematoma. Calcified plaques in the carotid bulbs and both ICAs more conspicuous on the right side. Retention cyst, sphenoid sinus. Low density nodules in the right thyroid lobe. The thyroid gland is not enlarged. Bilateral apical scarring Tympanic cavities and mastoid air cells are aerated.. CT/CT cervical spine wo IV con IMPRESSION: Multilevel cervical spondylosis C3 C7 without acute fracture or traumatic-related listhesis. Fleischner guidelines were followed. Electronically signed by: Zeke Garcia MD 10/10/2024 03:37 PM EST
--- NOTE | ~2024-10-10 | XR_ITS ---
CLINICAL HISTORY: post reduction 2 view right wrist Comparison: CR/SR - XR WRIST RT MIN 3V - 10/10/24 15:28 EST Findings: Acute displaced fracture of the distal radial and ulnar metaphysis. No radiopaque foreign body. IMPRESSION: Postreduction of the acute fracture of the distal radius and ulna. This document has been electronically signed by: Dcu Nunez MD on 10/10/2024 21:23:57
--- NOTE | ~2024-10-10 | FL_ITS ---
EXAMINATION: FL GUIDANCE ONLY HISTORY: ORIF COMPARISON: Correlation is made with plain films of the right wrist dated 10/10/2024. TECHNIQUE: Fluoroscopy time: 79.24 seconds. Cumulative Dose: 2.1166 mGy. DAP: 0.1279 mGym2 Images: 12. FINDINGS: Images demonstrate internal fixation of the previously seen fracture of the distal radius with a sideplate and multiple orthopedic screws. There is also internal fixation of the previously noted fracture of the distal ulna with a pin. FL/FL guidance in OR IMPRESSION: Fluoroscopy during procedure. Please see procedure report for additional information. Electronically signed by: Iain Yen MD 10/14/2024 07:42 AM EDT
--- NOTE | ~2024-10-10 | CT_ITS ---
CLINICAL HISTORY: right hip pain CT abdomen and pelvis without contrast Comparison: None Findings: There are multiple foci of atelectasis and/or scarring within the visualized lungs. No pleural effusion. Unremarkable gallbladder and solid organs. No urolithiasis. No bowel obstruction, pneumoperitoneum, or pneumatosis. Moderate distention of the urinary bladder. Prior hysterectomy. Normal appendix. Portions of the upper extremities were imaged as a part of the examination. There is a moderately displaced fracture of the distal metaphysis of the radius and an additional angulated fracture of the distal diaphysis of the ulna. There is a mildly comminuted fracture of the lateral aspect of the right superior pubic ramus without significant displacement. There is a fracture of the right sacral ala without significant displacement. There are foci of depression of the superior endplates of L3 and L4 which appear chronic and likely related Schmorl's nodes. IMPRESSION: 1. Acute fractures of the right superior pubic ramus, right sacral ala, right radius and right ulna. 2. Moderately severe distention of the urinary bladder. This document has been electronically signed by: Gracie Neff MD on 10/10/2024 18:01:56
--- NOTE | ~2024-10-10 | CT_ITS ---
EXAMINATION: CT HEAD WITHOUT IV CONTRAST HISTORY: head strike, fall, pain. TECHNIQUE: Unenhanced helical CT of the head was performed per standard departmental protocol. Coronal and sagittal reformats of the head were also evaluated. One or more of the following techniques was used for dose reduction: Automated exposure control, adjustment of the mA and/or kV according to patient size, use of iterative reconstruction technique. DLP: 663.97 mGy-cm COMPARISON: There are no prior studies for comparison. FINDINGS: BRAIN: There is diffuse prominence of the ventricular system and cortical sulci, consistent with atrophy. Periventricular and subcortical white matter hypodensities are noted which are nonspecific, but often seen in the setting of small vessel ischemic disease. There is a calcification along the left leaf of the tentorium which may related to a meningioma. There is no mass effect or midline shift. No intra- or extra-axial fluid collections are identified. SINUSES: There is a polyp versus mucous retention cyst in the right sigmoid sinus. The mastoid air cells and middle ear cavities are well pneumatized. ORBITS: The visualized orbits are unremarkable. BONES/SOFT TISSUES: The extracranial soft tissues are unremarkable. The calvarium is intact. No suspicious lytic or sclerotic lesions. CT/CT head/brain wo IV con IMPRESSION: No acute intracranial abnormality. Electronically signed by: Iain Yen MD 10/10/2024 03:32 PM [facility] [place]
--- NOTE | ~2024-10-10 | XR_ITS ---
EXAMINATION: XR WRIST, RIGHT CLINICAL INFORMATION: pain, injury, open fx COMPARISON: None available. TECHNIQUE: PA, lateral, and oblique views of the right wrist. FINDINGS: Comminuted cortical disruption distal metaphysis of the radius and ulna resulting in dorsal displacement and 1.5 cm overriding of the distal fragments. Osteopenia versus osteoporosis. The carpal bone appears intact. The metacarpals appear intact. XR/XR wrist RT min 3V IMPRESSION: Acute comminuted dorsally displaced fractures the distal metaphysis of the radius and ulna. Electronically signed by: Zeke Garcia MD 10/10/2024 03:45 PM [facility]
--- NOTE | ~2024-10-10 | XR_ITS ---
EXAMINATION: XR HIP, RIGHT CLINICAL INFORMATION: pain, injury COMPARISON: None available. TECHNIQUE: Two views of the right hip. AP view pelvis. FINDINGS: No acute cortical disruption or gross malalignment in the right hip. There is sclerosis of the articular surface in the acetabulum both hips. The bony pelvis is intact. Degenerative changes in the symphysis pubis and sacroiliac joints. No lytic or blastic lesions. Vascular calcifications in the thigh. Spondylosis at L4-5 and L5-S1.. XR/XR hip RT w PEL1V IMPRESSION: No acute fracture or dislocation, right hip. Peripheral arterial disease. Electronically signed by: Zeke Garcia MD 10/10/2024 03:47 PM [facility]
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
[2024-10-10 14:38] VITALS: BP 170/100; PULSE 78; O2SAT 98
[2024-10-10 14:51] VITALS: BP 185/78; PULSE 79; RESP 16; O2SAT 97; BMI 25.2
[2024-10-10] MEDS: fentaNYL citrate/PF 100 MCG/2 ML VIAL 50 MCG IVPUSH (14:59)
[2024-10-10 15:01] LABS: MANUAL DIFF FLAG NO
[2024-10-10] MEDS: Piperacillin Sodium/Tazobactam 3.375 GM in 0.9 % Sodium Chloride 50 ML IV ×2 (15:01→22:49)
[2024-10-10 15:03] LABS: Basophils Percent Auto 0.4 % (0-2); Eosinophils Absolute Auto 0.1 X10*3/uL (0.0-0.4); Eosinophils Percent Auto 0.6 % (0-4); Hematocrit 36.9 % (37.0-47.0); Hemoglobin 12.8 g/dl (12.0-16.0); Imm Gran Abs Auto 0.15 X10*3/uL (0.00-0.03); Imm Gran Pct Auto 1.8 % (0.0-0.4); Lymphocytes Absolute Auto 1.6 X10*3/uL (1.2-4.9); Lymphocytes Percent Auto 19.7 % (20-40); Mean Corpuscular HGB Conc 34.7 g/dl (31.0-35.0); Mean Corpuscular Volume 92.3 fL (80.0-98.0); Mean Platelet Volume 10.4 fL (9.4-12.3); Monocytes Absolute Auto 0.4 X10*3/uL (0.1-1.2); Monocytes Percent Auto 5.2 % (2-11); Neutrophils Absolute Auto 5.9 x10*3/uL (2.0-8.3); Neutrophils Percent Auto 72.3 % (45-73); Platelet Count 162 X10*3/uL (160-400); Red Cell Distribution Width 12.9 % (11.0-16.0); White Blood Count 8.1 X10*3/uL (4.8-10.8)
[2024-10-10 15:08] LABS: Prothrombin Time 11.8 SEC (10.9-12.4)
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
[2024-10-10 15:26] LABS: Alanine Aminotransferase 12 U/L (0-31); Albumin Level 4.1 g/dL (3.5-5.0); Anion Gap 16 (12-20); Aspartate Amino Transferase 25 U/L (5-31); Bilirubin Total 0.5 mg/dL (0.0-1.0); Blood Urea Nitrogen 15 mg/dL (9-16); Calcium 10.1 mg/dL (8.4-10.2); Carbon Dioxide 22 mmol/L (22-29); Chloride 105 mmol/L (96-108); Creatinine Clr Calc Pharmacy 51.3; Estimated Glomerular Filt Rate > 60; Glucose Random 125 mg/dL (60-115); Magnesium 1.8 mg/dL (1.6-2.6); Potassium 3.7 mmol/L (3.3-5.1); Sodium 139 mmol/L (135-145); Total Protein 7.7 g/dL (6.5-8.0)
[2024-10-10 17:10] LABS: Alkaline Phosphatase 46 U/L (39-117)
--- OUTSIDE RECORDS SUMMARY | 2024-10-10 17:21 | XMS_ITS | Clinical Summary ---
Author Organization 175 [facility] Address [address] [place] [address] Phone Care Team Providers Care Infection Control Manager Name Role Phone Carlita Villegas MD Primary Care Provider [phone] Allergies Active Allergy Reactions Criticality Noted Date Comments Azithromycin Nausea And Vomiting 01/20/2011 Ciprofloxacin Hcl Headache,Nausea And Vomiting 08/15/2012 Doxycycline Nausea And Vomiting 04/07/2014 Sulfa (Sulfonamide Antibiotics) 01/16/2006 Medications acetaminophen (TYLENOL) 325 mg tablet Take 2 Tablets by mouth every 6 hours as needed. Active aspirin (Vazalore) 81 mg capsule Take by mouth every evening. Active calcium carbonate (CALCIUM ORAL) Take by mouth. Active cetirizine HCl (CETIRIZINE ORAL) Take by mouth. Active DOCUSATE SODIUM ORAL Take by mouth as needed. Active ibuprofen (ADVIL,MOTRIN) 600 mg tablet TAKE 1 TABLET BY MOUTH EVERY 6 TO 8 HOURS NEEDED FOR PAIN 11/29/2023 Active MULTIVITAMIN ORAL None Entered Active alendronate (FOSAMAX) 70 mg tablet TAKE 1 TABLET BY MOUTH ONE TIME PER WEEK 4 tablet 1 06/19/2024 Active denosumab (PROLIA) 60 mg/mL syringe syringe Inject 1 mL (60 mg total) under the skin 1 (one) time for 1 dose. 1 mL 06/17/2024 Active lisinopriL (PRINIVIL,ZESTR IL) 5 mg tablet Take 1 tablet (5 mg total) by mouth 1 (one) time each day. Take in addition to 20 mg tab 90 tablet 1 06/25/2024 Active lisinopriL (PRINIVIL,ZESTR IL) 20 mg tablet Take 1 tablet (20 mg total) by mouth 1 (one) time each day. In addition to the 5 mg tab for a total of 25 mg daily 90 tablet 1 07/23/2024 Active pravastatin (PRAVACHOL) 10 mg tablet Take 1 tablet (10 mg total) by mouth 1 (one) time each day. 90 tablet 1 08/07/2024 Active Active Problems Problem Noted Date Diagnosed Date Hypertension 11/02/2022 Bilateral carotid artery stenosis 10/17/2022 Brain mass 08/11/2022 Overview (05/27/2024): Brain MRI 08/10/22: 0.9 x 1.2 cm mass on left tentorium, possibility of meningeal or other process Assessment & Plan (07/04/2024 10:50 AM EST): I reviewed the MRI details with the patient and her daughter. I agree that this is most likely a benign meningioma which is an incidental finding and not the cause of her rare dizziness. It is small and does not appear to have mass effect and at her age, the best course of action at this time is monitoring with surveillance imaging. We will plan on repeating her MRI in 1 year. She is agreeable with the plan. Ascending aorta dilatation 01/13/2022 Subclinical hypothyroidism 11/10/2021 Hyperlipidemia 03/13/2015 Overview (05/27/2024): Total cholesterol 205, LDL cholesterol 122, 10/08/2014. Allergic rhinitis 07/10/2014 Tubular adenoma 03/20/2012 Overview (05/27/2024): Tubular adenoma at the HF 2009. Normal CN to the mid right colon 03/20/2012. Next CN 2016. History of varicose veins 02/14/2012 Osteoporosis 12/30/2010 Headache 03/05/2007 Encounters Date Type Department Care Team Description 08/15/2024 9:00 AM EST - 08/15/2024 11:59 PM EST Hospital Encounter Radiology Department - [address] [address] Encounter for screening mammogram for breast cancer Discharge Disposition: Home or Self Care 08/13/2024 9:00 AM EST Office Visit Vascular Surgery - [place] [address] [place] [address] Priya Lopez MD Asymptomatic bilateral carotid artery stenosis (Primary Dx) 08/07/2024 1:15 PM EST Office Visit [facility] [address] [place] [address] Clifford Garcia PA Primary hypertension (Primary Dx); Hyperlipidemia, unspecified hyperlipidemia type from Last 3 Months Immunizations Name Administration Dates Next Due Influenza Quadravalent, MDCK , 0.5ml, preservative free (Flucelvax) 6mo and older 08/31/2023 Influenza trivalent, 0.5mL ( Fluad) 65yo and older 05/09/2024,04/25/2021,05/08/2019,04/16,04/22/2017,04/14/2010 Influenza trivalent, 0.5mL, preservative free (Fluarix; FluLaval; Fluzone) ages 6mo and older (Afluria) 3 years and older 04/18/2016 Influenza, Unspecified 03/29/2020,2017,04/18/2016,04/28 Moderna SARS-CoV-2 COVID-19, mRNA, LNP-S, preservative free 06/01/2022 Pneumococcal conjugate 13 va lent (Prevnar 13, PCV13) 2mo and older 09/01/2015 Pneumococcal conjugate 20 va lent (Prevnar 20, PCV 20) 2mo and older 11/10/2021 Pneumococcal polysaccharide 23 valent (Pneumovax 23) 2yo and older 06/01/2014 Td Tetanus diptheria (Tdvax) 7yo and older 02/14/2018 Zoster Live 03/17/2013 Zoster recombinant (Shingrix ) 19yo and older 05/31/2021 Surgical History Surgery Date Site/Laterality Comments HYSTERECTOMY 08/06/1986 PROCEDURE: HISTORICAL HYSTERECTOMY; COMMENT: bleeding COLONOSCOPY W/ BIOPSIES 04/07/2010 PROCEDURE: RI COLONOSCOPY STOMA W/BIOPSY SINGLE/MULTIPLE; COMMENT: Up to cecum, good preparation, 15mm polyp at ascending partially removed:tubular adenoma, transverse colon polyp removed.:ulcerated inflammatory polyp COLONOSCOPY 03/20/2012 PROCEDURE: RI COLONOSCOPY FLX DX W/COLLJ SPEC WHEN PFRMD; COMMENT: normal to mid right colon, very difficult exam. BREAST SURGERY 08/06/1986 Left PROCEDURE: RI UNLISTED PROCEDURE BREAST; COMMENT: benign Medical History Medical History Date Comments Headache(784.0) 03/05/2007 DX:Headache(784. 0) Benign neoplasm of colon 03/20/2012 DX:Aravind gn neoplasm of colon Varicose veins 02/14/2012 DX:Varicose vein s Osteoporosis 12/30/2010 DX:Osteoporosis Hyperlipidemia 03/13/2015 DX:Hyperlipidemi a; COMMENT: Total cholesterol 205, LDL cholesterol 122, 10/08/2014. Allergic rhinitis 07/10/2014 DX:Allergic rh initis Actinic keratosis 05/16/2013 DX:Actinic ker atosis; COMMENT: Actinic keratosis History of actinic keratoses 05/16/2013 DX: History of actinic keratoses; COMMENT: Actinic keratosis Hypertension 11/02/2022 DX:Hypertension Family History Medical History Relation Name Comments Breast cancer Aunt mat 50's Diabetes Brother 1 x 3 prostate cancer Brain Aneurysm Brother 2 x 1 Other: liver problems Father Breast cancer Maternal Grandmother 50's Other: Mother bowel perfor ation age 83; migraines Other: TIA Sister x 2 x2, age 76; car otid stenting, migraines Relation Name Status Comments Aunt mat 50's Alive Brother 1 x 3 Brother 2 x 1 Alive Father Maternal Grandmother 50's Mother Sister x 2 Alive Social History Tobacco Use Types Packs/Day Years Used Date Smoking Tobacco: Former Cigarettes Q uit: 08/06/1964 Smokeless Tobacco: Never Tobacco Cessation:Counseling Given: Not Answered Alcohol Use Standard Drinks/Week Comments No 0 (1 standard drink = 0.6 oz pur e alcohol) Comments No Sex and Gender Information Value Date Recorded Sex Assigned at Not on file Legal Sex Female 9:44 PM EST Gender Identity Not on file Sexual Orientation Not on file Obstetrics History Para Term AB IAB SAB Ectopic Multiple Livin g Live Births 3 3 3 3 Date Outcome GA Total Labor Labor/2nd/3rd Weight Sex Type Anes PTL Alena A1 A5 Name Clin Term Term Term Last Filed Vital Signs Vital Sign Reading Time Taken Comments Blood Pressure 130/72 08/13/2024 8:56 AM EST Pulse 72 08/13/2024 8:56 AM EST Temperature 36.4 ??C (97.6 ??F) 08/07/2024 1:19 PM ES T Respiratory Rate 16 08/13/2024 8:56 AM EST Oxygen Saturation 96% 06/17/2024 11:25 AM EST Inhaled Oxygen Concentration - - Weight 63 kg (139 lb) 08/13/2024 8:56 AM EST Height 160 cm (5' 3 ) 08/13/2024 8:56 AM EST Body Mass Index 24.62 08/13/2024 8:56 AM EST Plan of Treatment Upcoming Encounters Date Type Department Care Team (Late st Contact Info) Description 11/05/2024 2:00 PM EDT Office Visit Adult Medicine [address] [phone] Carlita Villegas MD [address] [place] [address] 06/17/2025 10:00 AM EST Office Visit Endocrinology [address] [phone] Gisell Villegas PA [address] [place] [address] 08/26/2025 10:00 AM EST Office Visit Vascular Surgery - [place] [address] [phone] Priya Lopez MD [address] [address] Health Maintenance Due Date Last Done Comments RSV Immunization Patients 60+ Years Old (1 - 1-dose 75+ series) 2019 Zoster Vaccines (3 of 3) 07/26/2021 05/31/2021, 03/06 Colorectal Cancer Screening: Colonoscopy 07/15/2022 05/08/2017 Depression Screening 07/15/2022 Falls Risk Assessment 07/15/2022 Medicare Annual Wellness Visit 07/15/2022 Social Influencers of Health Screening 07/15/2022 COVID-19 Vaccine ( season) 2024 06/01/2022, 06/06/2021, 09/30/2020, Additional history exists Hypertension/CHF/CAD Annual BMP Blood Test 06/03/2025 06/03/2024, 01/24/2024, 01/24/2024 DTaP,Tdap,and Td Vaccines (2 - Td or Tdap) 02/15/2028 02/14/2018 Cholesterol Screening (Lipid Panel) 06/03/2029 06/03/2024, 01/24/2024, 01/24/2024 Osteoporosis Screening (Bone Density Screening) 03/22/2033 03/22/2023, 06/14/2020, 05/06/2018 Pneumococcal Vaccine: 50+ Years Completed 11/10/2021, 09/01/2015, 06/01/2014 Influenza Vaccine Completed 05/09/2024, , 08/31/2023, Additional history exists HIB Vaccines Aged Out No longer eligi ble based on patient's age to complete this topic HPV Vaccines Aged Out No longer eligi ble based on patient's age to complete this topic Hepatitis A Vaccines Aged Out No long er eligible based on patient's age to complete this topic Hepatitis B Vaccines Aged Out No long er eligible based on patient's age to complete this topic IPV Vaccines Aged Out No longer eligi ble based on patient's age to complete this topic MMR Vaccines Aged Out No longer eligi ble based on patient's age to complete this topic Meningococcal ACWY Vaccine Aged Out N o longer eligible based on patient's age to complete this topic Meningococcal B Vacine Aged Out No lo nger eligible based on patient's age to complete this topic RSV Immunization Patients Under 20 months Aged Out No longer eligible based on patient's age to complete this topic Varicella Vaccines Aged Out No longer eligible based on patient's age to complete this topic Procedures Procedure Name Priority Date/Time Associated Diagnosis Comments MG MAMMO DIGITAL SCREENING W GIBRAN BILAT Routine 08/15/2024 9:14 AM EST Encounter for screening mammogram for breast cancer HM ANNUAL BMP BLOOD TEST Routine 01/24/2024 LIPID PANEL Routine 01/24/2024 DXA BONE DENSITY STUDY 1+ SITS AXIAL SKEL Routine 03/22/2023 10:49 AM EDT Age-related osteoporosis without current pathological fracture COLONOSCOPY Routine 05/08/2017 from Last 3 Months or Most Recently Relevant to Health Maintenance Results * MG Mammo Digital Screening w Gibran bilat (08/15/2024 9:14 AM EST) Anatomical Region Laterality Modality Breast Bilateral Mammography 08/15/2024 5:16 PM EST Impressions 08/15/2024 5:19 PM EST No mammographic evidence of malignancy. BREAST DENSITY: B - There are scattered areas of fibroglandular density. BI-RADS CATEGORY: 1 - NEGATIVE RECOMMENDATION: Screening bilateral mammogram is recommended in 1 year. MAMMO LOCATION: [facility], [address] [place] [address], [id number], . -------- FINAL REPORT -------- Dictated By: Karina Chang Dictated Date: 08/15/2024 17:16 ET Assigned Physician: Karina Chang Reviewed and Electronically Signed By: Karina Chang Signed Date: 08/15/2024 17:19 ET Workstation ID: [id number] Transcribed By: Self Edit Transcribed Date: 08/15/2024 17:16 ET Narrative 08/15/2024 5:19 PM EST EXAM: Screening Mammogram CLINICAL: 79 years old, Female, routine annual exam. ??History of a remote benign left excisional biopsy. COMPARISON: 08/01/2023 and as far back as 06/21/2020 ?? TECHNIQUE: Bilateral MLO and CC views were obtained digitally with 3-D mammogram (digital breast tomosynthesis). Computer-aided detection was utilized in evaluation of this exam (CAD). FINDINGS: No new suspicious mass, architectural distortion, or suspicious calcifications. Procedure Note Karina Chang MD - 08/15/2024 EXAM: Screening Mammogram CLINICAL: 79 years old, Female, routine annual exam. History of a remotebenign left excisional biopsy. COMPARISON: 08/01/2023 and as far back as 06/21/2020 TECHNIQUE: Bilateral MLO and CC views were obtained digitally with 3-Dmammogram (digital breast tomosynthesis). Computer-aided detection wasutilized in evaluation of this exam (CAD). FINDINGS: No new suspicious mass, architectural distortion, or suspiciouscalcifications. IMPRESSION: No mammographic evidence of malignancy. BREAST DENSITY: B - There are scattered areas of fibroglandular density. BI-RADS CATEGORY: 1 - NEGATIVE RECOMMENDATION: Screening bilateral mammogram is recommended in 1 year. MAMMO LOCATION: [facility], [address] [place] [address], [id number], . -------- FINAL REPORT -------- Dictated By: Karina Chang Dictated Date: 08/15/2024 17:16 ET Assigned Physician: Karina Chang Reviewed and Electronically Signed By: Karina Chang Signed Date: 08/15/2024 17:19 ET Workstation ID: [id number] Transcribed By: Self Edit Transcribed Date: 08/15/2024 17:16 ET Carlita Villegas MD IMG BI PROCEDURES Final Result * Annual BMP Blood Test (01/24/2024) Pathologist On license of [facility] Annual BMP Blood Test abstracted Historical Provider HEALTH MAINTENANCE Final Result * (ABNORMAL) Lipid panel (01/24/2024) Pathologist [facility] LDL/HDL Ratio 3 0 - 4 Triglycerides 88 0 - 150 mg/dL Cholesterol 189 0 - 200 mg/dL HDL 63 >=40 mg/dL LDL Cholesterol 109(A) 0 - 100 mg/dL Blood Venous blood specimen / Unknown Historical Provider LAB BLOOD ORDERABLES Edna l Result * DXA BONE DENSITY STUDY 1+ SITS AXIAL SKEL (03/22/2023 10:49 AM EDT) Anatomical Region Laterality Modality Bone Densitometr y 01/31/2023 10:0 7 AM EDT Narrative 03/22/2023 6:11 PM EDT BONE DENSITY SCAN (DEXA): FINDINGS: Lumbar Spine T-score is -2.0. ?? (SD relative to 20-29 y/o adult) Z-score is 0.6. ??(SD relative to age matched peers) This is considered osteopenia by WHO criteria. Left Hip T-score is -2.9. Z-score is -0.6. This is considered osteoporosis by WHO criteria. Comparison exam(s): 06/14/2020. ??5.3% increase in lumbar spine bone mineral density which is statistically significant at the 95% confidence level. ??No statistically significant change in left hip bone mineral density. IMPRESSION: IMPRESSION: ?? Osteoporosis by WHO criteria. The [facility] Department of Internal Medicine recommends using National Osteoporosis Foundation (NOF) guidelines in treatment decisions related to osteoporosis. NOF guidelines suggest considering treatment for postmenopausal women and men aged 50 or older presenting with the following: History of hip or vertebral fracture. T-score = -2.5 (DXA) at the femoral neck, total hip, or spine, after appropriate evaluation to exclude secondary causes. Low bone mass (T-score between -1.0 and -2.5 at the femoral neck or spine) AND a 10-year probability of a hip fracture = 3% OR a 10-year probability of a major osteoporosis-related fracture = 20% based on the [place]-adapted WHO algorithm Please note that all treatment decisions require clinical judgment and consideration of individual patient factors, including patient preferences, co-morbidities, previous drug use, risk factors not captured in the FRAX model (e.g., frailty, falls, vitamin D deficiency, increased bone turnover, interval significant decline in bone density) and possible under- or over-estimation of fracture risk by FRAX. Optional alternative screening schedule based on may Amaya., [facility] August 24, 2011 for patients with osteopenia (based on hip BMD T-score) is as follows: * ??advanced osteopenia (T scores -2.00 to -2.49), BMD testing every year * ??moderate osteopenia (T scores -1.50 to -1.99), BMD testing every 5 years mild osteopenia or normal BMD (T scores -1.50 and higher), BMD testing every 15 years Procedure Note Karina Chang MD - 09/11/2023 BONE DENSITY SCAN (DEXA): FINDINGS: Lumbar Spine T-score is -2.0. (SD relative to 20-29 y/o adult) Z-score is 0.6. (SD relative to age matched peers) This is considered osteopenia by WHO criteria. Left Hip T-score is -2.9. Z-score is -0.6. This is considered osteoporosis by WHO criteria. Comparison exam(s): 06/14/2020. 5.3% increase in lumbar spine bonemineral density which is statistically significant at the 95% confidence level. No statisticallysignificant change in left hip bone mineral density. IMPRESSION: IMPRESSION: Osteoporosis by WHO criteria. The [facility] Department of Internal Medicine recommendsusing National Osteoporosis Foundation (NOF) guidelines in treatment decisions related toosteoporosis. NOF guidelines suggest considering treatment for postmenopausal women and menaged 50 or older presenting with the following: History of hip or vertebral fracture. T-score = -2.5 (DXA) at the femoral neck, total hip, or spine, afterappropriate evaluation to exclude secondary causes. Low bone mass (T-score between -1.0 and -2.5 at the femoral neck or spine)AND a 10-year probability of a hip fracture = 3% OR a 10-year probability of a majorosteoporosis-related fracture = 20% based on the [place]-adapted WHO algorithm Please note that all treatment decisions require clinical judgment andconsideration of individual patient factors, including patient preferences, co- morbidities,previous drug use, risk factors not captured in the FRAX model (e.g., frailty, falls, vitaminD deficiency, increased bone turnover, interval significant decline in bone density) andpossible under- or over-estimation of fracture risk by FRAX. Optional alternative screening schedule based on may Am[facility]., [facility] for patients with osteopenia (based on hip BMD T-score) is as follows: * advanced osteopenia (T scores -2.00 to -2.49), BMD testing every year * moderate osteopenia (T scores -1.50 to -1.99), BMD testing every 5years mild osteopenia or normal BMD (T scores -1.50 and higher), BMD testingevery 15 years Lizbeth PRADHAN [facility] DXA PROCEDURES Final Result * Colonoscopy (05/08/2017) Colonoscopy no interpretatio n, abstacted Anatomical Region Laterality Modality Other Historical Provider HEALTH MAINTENANCE Final Result from Last 3 Months or Most Recently Relevant to Health Maintenance Insurance [employer] Care Teams Infection Control Manager Relationship Specialty Start Date End Date Carlita Villegas MD [address] [place] [address] PCP - General 08/25/22
--- OUTSIDE RECORDS SUMMARY | 2024-10-10 17:21 | XMS_ITS | Encounter Summary ---
Author Organization [facility] Address [address] [place] [address] Care Team Providers Care Freight Booker Name Role Phone Carlita Villegas MD Primary Care Provider [phone] Reason for Visit * Reason Comments Med Change Request Encounter Details Date Type Department Care Team ([facility] Contact Info) Description 07/10/2024 Telephone Adult Medicine [facility] [address] [place], [place] [phone] Gisell Villegas PA [address] [place] [address] Med Change Request Social History Tobacco Use Types Packs/Day Years Used Date Smoking Tobacco: Former Cigarettes Q uit: 08/06/1964 Smokeless Tobacco: Never Alcohol Use Standard Drinks/Week Comments No 0 (1 standard drink = 0.6 oz pur e alcohol) Comments No Sex and Gender Information Value Date Recorded Sex Assigned at Not on file Legal Sex Female 9:44 PM EST Gender Identity Not on file Sexual Orientation Not on file documented as of this encounter Progress Notes * Maida Malone MA - 09/26/2024 7:34 AM EST Paperwork submitted through [employer] 09/25/24. * Jaelyn Chang MA - 08/11/2024 2:27 PM EST Spoke See from [facility] for deliver for patient prolia. * Maida Malone MA - 07/15/2024 8:16 AM EST [phone] (home) [phone] (work) PT notified and is requesting status of prolia. PW went upstairs 07/04/24. * LORNE Johns - 07/15/2024 8:10 AM EST Patient can stop fosmax. Prolia paperwork is being processed. * Maida Malone MA - 07/14/2024 1:57 PM EST Images from the original note were not included. Component Ref Range & Units 1 mo ago (06/03/24) 5 mo ago (01/24/24) 1 yr ago (12/28/22) 2 yr ago (11/10/21) 3 yr ago (05/30/21) 5 yr ago (09/17/18) 5 yr ago (09/17/18) 5 yr ago (09/17/18) Blood Urea Nitrogen 5 - 25 mg/dL 20 17 15 14 13 15 CREAT 0.5 - 1.1 mg/dL 0.93 0.86 0.87 0.81 0.81 0.79 GLOMERULAR FILTRATION RATE >60 63 69 CM 68 CM > 60 R, CM > 60 R, CM > 60 R, CM Comment: This eGFR result was calculated using the CKD-EPI 2020 Creatinine Equation NA 135 - 145 mEq/L 139 139 141 142 141 140 R K 3.5 - 5.5 mmol/L 4.5 4.6 4.2 4.4 4.3 4.2 CL 96 - 110 mmol/L 107 105 107 107 107 104 CALCIUM 8.5 - 10.5 mg/dL 9.5 10.0 8.9 8.9 8.7 8.9 Albumin 3.2 - 5.0 G/dL 3.7 4.0 3.5 SGPT 10 - 60 U/L 16 21 18 18 GLUCOSE 70 - 100 mg/dL 84 92 CM 91 CM 89 CM 88 CM 85 CM Comment: Reference range applicable to fasting specimens only CARBON DIOXIDE (CO2) 21 - 32 mmol/L 27 27 28 31 31 31 ANION GAP 3 - 11 5 7 6 4 3 5 TOTAL PROTEIN (TP) 6.0 - 8.0 G/dL 6.9 7.2 6.8 BILIRUBIN TOTAL 0.0 - 1.4 mg/dL 0.6 0.4 0.5 SGOT 10 - 42 U/L 20 20 17 18 ALK PHOS 42 - 121 U/L 47 53 46 Resulting Agency [facility] Narrative Performed by: [employer] Release to patient->Immediate Specimen Collected: 06/03/24 8:59 AM Last Resulted: 06/03/24 1:54 PM Lab Flowsheet Order Details View Encounter Lab and Collection Details Routing Result History View Encounter Conversation CM=Additional comments R=Reference range differs from displayed range Result Care Coordination Patient Communication Released Not seen Back to Top Follow-up Encounters 06/03/2024 Orders Only Back to Top Other Results from 06/03/2024 Contains abnormal data CHG BLOOD COUNT COMPLETE AUTO&AUTO DIFRNTL WBC Order: [id number] Status: Final result Visible to patient: Yes (not seen) Next appt: None Dx: Mixed hyperlipidemia; Hair loss; Prim... 0 Result Notes 1 Follow-up Encounter Component Ref Range & Units 1 mo ago (06/03/24) 2 yr ago (11/10/21) 3 yr ago (05/30/21) 5 yr ago (09/17/18) 8 yr ago (02/25/16) 9 yr ago (03/15/15) 9 yr ago (10/08/14) WHITE BLOOD COUNT 4.8 - 10.8 x10-3/uL 4.3 Low 4.2 Low 4.1 Low 4.7 Low 5.0 R 4.6 Low R 3.3 Low R RED BLOOD COUNT 3.8 - 4.8 x10-6/uL 3.9 4.4 4.1 4.2 4.1 R 3.9 R 4.3 R Hemoglobin 11.5 - 16.0 g/dL 12.1 13.3 13.1 12.7 12.7 R 12.2 R 12.9 R Hematocrit 35 - 47 % 37.7 42.2 39.2 39.9 38.9 37.7 38.5 MEAN CORPUSCULAR VOLUME 79 - 98 fL 96.9 96.3 95.8 95.0 94.9 R 95.7 R 90.2 R MEAN CORPUSCULAR HEMOGLOBIN 27 - 32 pg 31.1 30.4 32.0 30.2 MEAN CORPUSCULAR HGB CONC 32 - 37 g/dL 32.1 31.5 Low 33.4 31.8 Low 32.6 R 32.4 R 33.5 R RED CELL DISTRIBUTION WIDTH 11 - 15 % 12.6 13.2 13.2 12.9 PLT COUNT 130 - 400 x10-3/uL 188 171 170 186 174 R 172 R 174 R MEAN PLATELET VOLUME 7 - 11 fL 11.1 High 11.2 High 10.9 11.3 High 10.2 R 10.5 R 11.2 High R NRBC % AUTO <1 % 0.0 0.0 0.0 0.0 NEUTROPHILS % % 59.7 59.2 60.8 60.6 65.9 R 61.9 R 55.7 R LYMPH % % 29.2 30.5 29.1 28.8 24.6 R 28.8 R 31.6 R MONO % % 8.6 7.7 8.1 8.2 7.7 R 7.8 R 9.7 R EOS % % 1.6 1.9 1.0 1.3 1.6 R 1.1 R 2.4 R BASO % % 0.7 0.5 0.5 0.9 0.2 R 0.4 R 0.6 R IMMATURE GRANULOCYTES % % 0.2 0.2 0.5 0.2 NRBC # AUTO <0.1 x10-3/uL 0.00 0.00 0.00 0.00 NEUT # 1.5 - 7.0 x10-3/uL 2.55 2.47 2.46 2.83 LYMPH # 1 - 5.0 x10-3/uL 1.25 1.27 1.18 1.34 MONO # 0.2 - 1.0 x10-3/uL 0.37 0.32 0.33 0.38 EOS # 0 - 0.5 x10-3/uL 0.07 0.08 0.04 0.06 BASO # 0 - 0.2 x10-3/uL 0.03 0.02 0.02 0.04 IMMATURE GRANULOCYTES # 0 - 0.03 x10-3/uL 0.01 0.01 0.02 0.01 Resulting Agency [facility] 06/17/24 NOV 06/17/25 * Irene St MA - 07/14/2024 1:42 PM EST Given by endo documented in this encounter Plan of Treatment Upcoming Encounters Date Type Department Care Team (Late st Contact Info) Description 11/05/2024 2:00 PM EDT Office Visit [facility] [place] - [address] [phone] Carlita Villegas MD [address] [place] [address] 06/17/2025 10:00 AM EST Office Visit Endocrinology - [address] [phone] Gisell Villegas PA [address] [place] [address] 08/26/2025 10:00 AM EST Office Visit Vascular Surgery - [address] [phone] Priya Lopez MD [address] [address] documented as of this encounter Visit Diagnoses Not on filedocumented in this encounter Care Teams Freight Booker Relationship Specialty Start Date End Date Carlita Villegas MD [address] [place] [id number] PCP - General 08/25/22 documented as of this encounter
--- OUTSIDE RECORDS SUMMARY | 2024-10-10 17:21 | XMS_ITS | Data Portability ---
Author Organization [facility], [address] Address [address] [place] [address] Care Team Providers Care Wallpaperer Name Role Phone DOLLY CHAN Primary Care Provider [phone] Assessment No assessment recorded. Plan of Treatment Reminders Order Date Submit Date Provider Last Modified By Organization Details Last Modified Time Details Appointments None recorded. Lab None recorded. Referral emergency medicine referral - Hypertensiv e crisis. need to rule out acute CO. [address] ([place]), [address] [place] [address], [address], 3 15:16:57 Procedures None recorded. Surgeries None recorded. Imaging None recorded. Medication Orders polymyxin B sulfate 10,000 unit-trimet hoprim 1 mg/mL eye drops 2022 023 [facility] #[id number], [address] [place], [address], 3 15:02:44 Patient TargetsNo targets recorded. Patient Instructions Encounter Date Encounter Id Patient Instructions Last Modified By Organization Details Last Modified Time 08/25/2022 [id number] Apply warm, mois t compresses over closed eyes 3-4 times per day for 10-15 minutes at a time. Do not return to work until after using the antibiotic drops for 24 hours. If your symptoms do not improve, worsen at any time, or if intense pain, redness, or burning occurs with use of the eye drops, stop the drops immediately and go to the ER. If you wear contact lenses, do not wear them for 2 days. after symptoms resolved. If you have disposable contacts, discard the pair you were wearing and start with a new pair. If they are not disposable, clean thoroughly before using again. [email or web address] Not available 08/25/2022 15:02:48 - As we discussed, you denied having any symptoms of your high blood pressure right now. Please follow up with your primary care provider as soon as possible to get further evaluation and - If you use tobacco or frequent alcohol use you should stop - weight loss can reduce blood pressure - 2 gram low-salt diet - continue medications as discussed your blood pressure is elevated you should follow-up with your Primary -doctor. - For any chest pain, shortness of breath, weakness or numbness to extremities, difficulty speaking, blurred vision, or headache unrelieved by medications you should go to Emergency room as this can be a medical emergency. [email or web address] Not available 08/25/2022 15:02:59 Reason for Referral Emergency Medicine Referral for Hypertensive crisis hypertensive crisis. need to rule out acute CO. Hypertensive crisis. need to rule out acute CO. Referring Physician: Enrico Galdamez, Urgent Care, Encounter Date: 08/25/2022 Problems Name Problem SNOMED Code Status Onset Date Resolution Date Notes Provider Name and Address Organization Details Recorded Time Osteoporosis 42934140 Active 2022 [facility] 3 14:30:52 Hypertensive disorder 12169919 Active 2022 LORNE Watters [facility] 3 14:30:59 Problem Notes None recorded. Medical Equipment None Reported. Allergies No known drug allergies Medications Name Sig Start Date Stop Date Status Note LastModified by Organization Details LastModified Time alendronate 70 mg tablet TAKE 1 TABLET BY MOUTH ONE TIME PER WEEK active Not Available Not Available No t Available amlodipine 5 mg tablet TAKE 1 TABLET BY MOUTH EVERYDAY AT BEDTIME active Not Available Not Available No t Available meclizine 25 mg tablet TAKE 1 TABLET BY MOUTH 3 TIMES DAILY NEEDED (DIZZINESS) . active Not Available Not Available No t Available polymyxin B sulfate 10,000 unit-trimeth oprim 1 mg/mL eye drops INSTILL 1 DROP INTO AFFECTED EYE(S) BY OPHTHALMIC ROUTE EVERY 6 HOURS 2022 active Not Available Not Available Not Avai lable Vitals Date Recorded Body height Body mass index (BMI) Body weight Oxygen saturation Oxygen saturation in Arterial blood by Pulse oximetry Heart rate Respiratory rate Body temperature Systolic blood pressure Diastolic blood pressure Systolic blood pressure Diastolic blood pressure Provider Name and Address Organization Details Last Updated DateTime 3 160.02 cm 25.3 kg/m2 07755.7 1 g 96 % 96 % 65 /min 20 /min 98.3 [degF] 194 mm[Hg] 96 mm[Hg] 200 mm[Hg] 120 mm[Hg] [facility]iva [facility]agu[facility] 3 15:06:49 Social History Question Answer Notes LastModified by Organizat ion Details LastModified Time Tobacco Smoking Status Never Smoker [facility] 08/25/2022 14:31:08 What Is Your Level Of Alcohol Consumption? None Information not available 08/25/2022 Have You Had Direct Contact, Or Contact During Intimacy, With Monkeypox Rash, Scabs, Or Body Fluids From A Person With Monkeypox? No Information not available 08/25/2022 Do You Use Any Illicit Or Recreational Drugs? No Information not available 08/25/2022 Have You Recently Traveled Abroad? No Information not available 08/25/2022 Do You Or Have You Ever Used Any Other Forms Of Tobacco Or Nicotine? No Information not available 08/25/2022 Sex: Unknown Functional Status None recorded. Mental Status None recorded. Family History Relationship Description Onset Age of this Age Resolved Age Notes LastModified by Organization Details LastModified Time Father No current problems or disability Not available 08/25 14:31:01 Mother No current problems or disability Not available 08/25 14:31:01 Medical History No medical history recorded. Gynecological HistoryNo gynecological history recorded. Obstetrics History GPAL:G 0 P 0 0 0 0 Immunizations Vaccine Type Date Status Note Provider Nam e and Address Organization Details Recorded Time COVID-19, mRNA, LNP-S, PF, 30 mcg/0.3 mL dose 1 completed [facility] 08/25/2022 14:30:37 COVID-19, mRNA, LNP-S, PF, 30 mcg/0.3 mL dose 1 completed Aviva Culver null, [place] - [facility] 08/25/2022 14:30:37 zoster live 3 completed Aviva Culver null, PA - [facility] 08/25/2022 14:30:38 Influenza, adjuvanted, trivalent, PF 8 completed Aviva Litzy null, PA - [facility] 08/25/2022 14:30:38 Pneumococcal conjugate PCV 13 6 completed Aviva Culver null, PA - [facility] 08/25/2022 14:30:38 Influenza, split virus, trivalent, PF 6 completed Aviva Culver null, PA - [facility] 08/25/2022 14:30:38 Influenza, split virus, trivalent, preservative 0 completed Aviva Litzy null, PA - [facility] 08/25/2022 14:30:38 Influenza, high-dose, trivalent, PF 9 completed Aviva Litzy null, PA - [facility] 08/25/2022 14:30:38 Pneumococcal conjugate PCV20, polysaccharide [id number] conjugate, adjuvant, PF 2 completed Aviva Litzy null, PA - [facility] 08/25/2022 14:30:38 zoster recombinant 1 completed Aviva Litzy null, PA - [facility] 08/25/2022 14:30:38 pneumococcal polysaccharide PPV23 4 completed Aviva Culver null, PA - [facility] 08/25/2022 14:30:38 Influenza, high-dose, trivalent, PF 7 completed Aviva Culver null, PA - [facility] 08/25/2022 14:30:38 COVID-19, mRNA, LNP-S, PF, 100 mcg/0.5mL dose or 50 mcg/0.25mL dose 1 completed Aviva Litzy null, PA - [facility] 08/25/2022 14:30:38 Td (adult), 2 Lf tetanus toxoid, preservative free, adsorbed 8 completed Aviva Litzy null, PA - [facility] 08/25/2022 14:30:38 Influenza, high-dose, quadrivalent, PF 1 completed Aviva Litzy null, PA - [facility] 08/25/2022 14:30:38 Past Encounters Encounter ID Performer Location Encounter Start Date Encounter Closed Date Diagnosis/Indication Diagnosis SNOMED-CT Code Diagnosis ICD10 Code Diagnosis Note [id number] [address] [place] [address] 09/15/2020 10:30:46 09/15/2020 12:24:20 [id number] [address] [place] [address] 04/23/2021 09:58:30 04/23/2021 12:42:40 [id number] Enrico Galdamez, [employer] [address] [place] [address] 08/25/2022 13:36:13 08/25/2022 15:10:22 Acute conjunctivitis of right eye 6577659053 32736 H10.31 Hypertensive crisis 7068 34895 I16.9 Health Concerns Section Related Observation LastModified by Organization Detai ls LastModified Time None Recorded Concern Status LastModified by Organization Details LastModified Time None Recorded Advance Directives Directive None Recorded Payers Encounter Date Sequence Insurance Name Policy Number Policy Celestin Covered Member ID Celestin Member ID Guarantor Name 09/15/2020 1 [employer] MED[employer] PLAN (MEDICARE REPLACEMENT HMO) [id number] Dayna Goldberg [id number] Dayna Goldberg 04/23/2021 1 [employer] MED[employer]AGE PLAN (MEDICARE REPLACEMENT HMO) [id number] Dayna Goldberg [id number] Dayna Goldberg 08/25/2022 1 [employer] MED[employer]VANTAGE PLAN (MEDICARE REPLACEMENT HMO) [id number] Dayna Goldberg [id number] Dayna Kulik Notes Date Note Type Note Provider Name and Address Organization Details Recorded Time 08/25/2022 text/html Eye problemsRepo rted bypatient.Notes:right eye redness more then left with yellow discharge. Also patient is hypertensive QH=887/120mmhg. Enrico Galdamez NP [address] [place], [address], [place] - [facility] 08/25/2022 15:08:45 OBGyn Episode No OBEpisode recorded.
--- OUTSIDE RECORDS SUMMARY | 2024-10-10 17:21 | XMS_ITS | Patient Health Record ---
Author Organization [facility] Address [address] [place] [address] Support Name Relationship Address Phone KEVIN PFEIFFER Guarantor Unknown [phone] Reason For Referral No Information Medications Medication SIG (Take, Route, Frequency, Duration) Notes Start Date End Date Status Calcium-Carb 600 + D 1 ORAL daily for -3 [facility] 2 Active Anita-D 12 Hour 60-120 1 ORAL twice daily for -3 [facility] 01/12/2012 Active Evista 60MG 1 ORAL daily for -3 [facility] 08/30/2012 Active Multivitamins 1 ORAL daily for -3 [facility] 01/12/2012 Active Problems Problem Type SNOMED Code ICD Code Onset Dates Problem Status W/U Status Risk Notes Problem Osteoarthritis (438542545) Osteoarthrosis, unspecified whether generalized or localized, unspecified site (715.90) Active confirmed Major Problem Osteoporosis (60801185) Unspecified osteoporosis (733.00) Active confirmed Major Problem Gynecological examination normal (162375964337896) Routine gynecological examination (V72.31) Active confirmed Diag Plan Of Treatment No Information Insurance Providers Payer Name Payer Address Payer Phone Subscriber Number Group Number Insured Name Patient Relationship to Insured Coverage Start Date Coverage End Date [employer] [facility] [address] [place] [address] [id number] KEVIN PFEIFFER Self - patient is the insured
[2024-10-10] MEDS: Acetaminophen 1,000 MG/100 ML PIGGYBACK 400 MG IV (17:29)
[2024-10-10] MEDS: Morphine Sulfate 4 MG/ML CARTRIDGE IVPUSH (17:29)
[2024-10-10] MEDS: ondansetron HCL 4 MG/2 ML VIAL IVPUSH ×2 (17:29→20:21)
[2024-10-10 17:30] VITALS: BP 199/96; PULSE 73; RESP 18; TEMP 36.4; O2SAT 95
--- NOTE | 2024-10-10 17:43 | P.CONOP_ITS ---
History of Present Illness HPI Consult date: 10/10/24 Chief complaint: FALL,-LOC,RT WRIST ANGULATION PER EMS Narrative: Patient is a 79 YO F who presents to the hospital after a fall Patient reports significant pain in both the R wrist and R groin area Patient reports a small, open wound on the ulnar aspect of the R wrist associated with signiffcant deformity XR taken in ED demonstrate displaced fractures of both the right distal radius and distal ulna Pelvic XR also concerning for potential nondisplaced R pubic ramus fracture No other acute complaints or concerns at this time Review of Systems 2 Review of Systems: Yes all other systems are reviewed and are negative [facility] Past Medical History Medical History Osteoporosis Allergies Elevated cholesterol PONV (postoperative nausea and vomiting) HTN (hypertension) Surgical History Surgical History Hx of colonoscopy Hx of left cataract extraction Hx of hysterectomy Hx of tonsillectomy Social History Social History Unable to assess alcohol history related to: Unknown Alcohol intake: never Patient Tobacco Use Status: Never used Tobacco Advance Directives: Yes Advance Directives on File: Yes Advance Directives Date on File: 11/29/23 Do you have a plan to hurt others: No Plan Current occupational status: retired Current occupation: right hand dominant Meds Allergies Allergy/AdvReac Type Severity Reaction Status Date / Time azithromycin Allergy Unknown Verified 10/10/24 14:51 sulfamethoxazole Allergy Unknown Verified 10/10/24 14:51 [From Bactrim] trimethoprim [From Bactrim] Allergy Unknown Verified 10/10/24 14:51 Home Medications ?Medication ?Instructions ?Recorded ?Confirmed ?Last Taken ?Type acetaminophen 500 mg tablet 1,000 mg PO TID PRN Pain 11/29/23 11/29/23 Unknown History (Acetaminophen Extra Strength) alendronate 70 mg tablet 70 mg PO QWEEK 11/29/23 11/29/23 Unknown History aspirin 81 mg tablet 81 mg PO DAILY 11/29/23 11/29/23 Unknown History calcium 600 mg capsule 600 mg PO DAILY 11/29/23 11/29/23 Unknown History cetirizine 10 mg tablet 10 mg PO DAILY 11/29/23 11/29/23 Unknown History dextromethorphan-guaifenesin 30 1 tab PO Q12H PRN Cough 11/29/23 11/29/23 Unknown History mg-600 mg tablet extended [id number] hr docusate sodium 100 mg tablet 100 mg PO DAILY 11/29/23 11/29/23 Unknown History multivitamin 1 tab PO DAILY 11/29/23 11/29/23 Unknown History pravastatin 10 mg tablet 10 mg PO DAILY 11/29/23 11/29/23 Unknown History lisinopril 20 mg tablet 20 mg PO DAILY 02/12/24 Unknown History Physical Exam 2 Vital Signs: Vital Signs: Last Vital Signs Temp 97.6 F 10/10/24 17:30 Pulse 73 10/10/24 17:30 Resp 18 10/10/24 17:30 BP 199/96 H 10/10/24 17:30 Pulse Ox 95 10/10/24 17:30 O2 Del Method Room Air 10/10/24 17:30 BMI result Body Mass Index 25.2 Extrem: Other: On inspection of the right wrist, there is noted to be a small, approximately 0.5-1cm laceration on the ulnar R wrist at the level of the fracture There is also a significant deformity of the R wrist, consistent with XR findings Patient reports tenderness to very gentle palpation of the R wrist Distal sensation intact Capillary refill brisk On inspection of the R leg, there is no visible deformity of the RLE No shortening or external rotation noted No ecchymosis of the RLE noted Distal sensation intact Capillary refill brisk Results Labs 10/10/24 14:56 10/10/24 14:56 Labs: Abnormal lab results 10/10/24 Range/Units 14:56 RBC 4.00 L (4.20-5.50) X10*6/uL Hct 36.9 L (37.0-47.0) % Immature Gran % (Auto) 1.8 H (0.0-0.4) % Lymph % (Auto) 19.7 L (20-40) % Abs Immat Gran (auto) 0.15 H (0.00-0.03) X10*3/uL Random Glucose 125 H (60-115) mg/dL H & H 10/10/24 Range/Units 14:56 Hgb 12.8 (12.0-16.0) g/dl Hct 36.9 L (37.0-47.0) % Coagulation 10/10/24 Range/Units 14:56 INR 1.0 (0.9-1.1) All other labs normal. Diagnostic results Wrist/Hand x-ray: report reviewed and image reviewed Assessment and Plan (1) Fracture of distal end of left ulna: Status: Acute (2) Fracture of left distal radius: Status: Acute (3) Pelvic fracture: Status: Acute Plan 1. Right open distal radius and distal ulna fractures, grade 1 Case is dicussed with Dr. Zamorano, and a collaborative treatment paln is formed: Patient is educated about this condition Patient is educated about the typical treatment course Patient would like to proceed with surgery Patient is educated on the risks and benefits of surgery, namely injury to blood vessels, nerves, tendons, and bones, infection, and surgical failure. Patient understands these risks and would like to proceed with operative intervention. Patient will be put on to the OR schedule on 10/13/24 for the following procedures: 1. I&D and ORIF of open right distal radius and ulna fractures, under general 2. R sided pelvic injury Awaiting final reads on CT scan NWB on RLE No neuro deficit noted Procedures Date of Service Date of Service: 10/10/24
--- NOTE | 2024-10-10 19:00 | PC.NURSE ---
morphine 4mg IV push administered at this time for 7/10 pain.
[2024-10-10] MEDS: LORazepam 2 MG/ML VIAL IVPUSH (20:19)
--- NOTE | 2024-10-10 21:06 | MHC.EDTECH ---
1000ml of urine emptied from ramirez bag.
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
--- NOTE | 2024-10-10 21:56 | PHA.MEDREC ---
Addendum entered by Chapo Conklin 10/10/24 22:20: reviewed Original Note: Pharmacy Consult ? Medication Reconciliation Pharmacy has completed the medication reconciliation. Spoke with patient and she was able to confirm her medications (including dose and how she takes them) despite being grogs and nodding off. She confirmed her Dr stopped the Alendronate a due to the Dr noticing it wasn't really working for the patient. She confirmed her Lisinopril and confirmed she takes a 5mg tab and 20mg tab together in the morning. She was able to confirm she took her medications this morning.
[2024-10-10 21:59] VITALS: BP 161/75; PULSE 73; RESP 16; TEMP 36.6; O2SAT 97
[2024-10-10] MEDS: Prochlorperazine Edisylate 10 MG/2 ML VIAL IVPUSH (22:36)
[2024-10-10] MEDS: Lidocaine HCl 1 % MPF 5 ML VIAL 10 ML SUBCUT (22:36)
[2024-10-10] MEDS: BUPivacaine MPF 0.25 % 30 ML VIAL SUBCUT (22:37)
[2024-10-10 22:42] VITALS: BP 166/68; PULSE 80; RESP 16; TEMP 36.7; O2SAT 96
[2024-10-11] VITALS (10 sets, daily range): BP systolic 110–146; BP diastolic 54–70; PULSE 72–96; RESP 14–18; TEMP 36.3–37.3; O2SAT 94–98
--- NOTE | 2024-10-11 03:51 | PC.NURSE ---
Pt transferred from stretcher to hospital bed by this RN and EDT. Pt tolerated well. pt resting in bed in no notable distress, call loving is within reach , plan of care ongoing.
[2024-10-11] MEDS: Piperacillin Sodium/Tazobactam 3.375 GM in 0.9 % Sodium Chloride 50 ML IV ×4 (06:08→22:45)
--- NOTE | 2024-10-11 07:53 | P.PNIM_ITS ---
Subjective Subjective Date of Service: 10/11/24 Interval History: Complaining of chronic postnasal drip that she relates to lisinopril, had nausea now resolved, complaining of some pelvic discomfort Tolerating diet no vomiting no diarrhea last bowel movement 1 day ago, Usually move bowels every 2 days Review of Systems All other system reviewed and are negative Physical Exam 2 Vital Signs: Vital Signs: Last Vital Signs Temp 98.0 F 10/11/24 06:12 Pulse 73 10/11/24 06:12 Resp 16 10/11/24 06:12 BP 138/60 10/11/24 06:12 Pulse Ox 95 10/11/24 06:12 O2 Del Method Room Air 10/11/24 06:12 O2 Flow Rate 2 10/11/24 03:52 BMI result Body Mass Index 25.2 Const: Other: General resting comfortably in no acute distress. Neck no JVD. CVS regular rate rhythm, Respiratory lungs clear to auscultation, no respiratory distress Gastrointestinal abdomen soft, non tender, bowel sounds audible Extremities no edema. Right arm in sling Neuro non focal Skin no rash Objective Data Active Medications Acetaminophen (Acetaminophen 325 Mg Tablet) 650 mg PO Q6H PRN PRN Reason: Pain, Mild 1-3,fever,headache Calcium Carbonate (Calcium Carbonate 750 Mg Tab.Chew) 750 mg PO Q4H PRN PRN Reason: Heartburn Calcium Carbonate (Calcium Oyster Shell Elemental 500 Mg Tablet) 500 mg PO BID [facility] Docusate Sodium (Docusate Sodium 100 Mg Capsule) 100 mg PO DAILY [facility] Guaifenesin/Dextromethorphan (Guaifenesin Dm 600/30 1 Tab Tab.Er.12h) 1 tab PO Q12H PRN PRN Reason: Cough Piperacillin Sod/Tazobactam (Sod 3.375 gm/ Sodium Chloride) 50 mls @ 100 mls/hr IV Q6H [facility] Last Infusion: 10/11/24 06:41 Dose: Infused Documented By: JOSE MARTIN Labetalol HCl (Labetalol Hcl 100 Mg/20 Ml Vial) 5 mg IVPUSH Q6H PRN PRN Reason: SBP >180 Lisinopril (Lisinopril 5 Mg Tablet) 5 mg PO DAILY RAYNE; Protocol Lisinopril (Lisinopril 20 Mg Tablet) 20 mg PO DAILY RAYNE; Protocol Loratadine (Loratadine 10 Mg Tablet) 10 mg PO DAILY RAYNE Magnesium Hydroxide (Milk Of Magnesia 30 Ml Oral.Susp) 30 ml PO DAILY PRN PRN Reason: Constipation Melatonin (Melatonin 3 Mg Tablet) 6 mg PO BEDTIME PRN PRN Reason: Insomnia Morphine Sulfate (Morphine Sulfate 4 Mg/Ml Cartridge) 4 mg IVPUSH Q4H PRN; Protocol PRN Reason: Pain, Severe (Pain Scale 7-10) Multivitamins/Vitamin C (Multivitamin Tablet) 1 tab PO DAILY RAYNE Ondansetron HCl (Ondansetron Hcl 4 Mg/2 Ml Vial) 4 mg IVPUSH Q8H PRN PRN Reason: Nausea and Vomiting Oxycodone HCl (Oxycodone Hcl Immed Release 5 Mg Tablet) 5 mg PO Q6H PRN PRN Reason: Pain, Moderate(Pain Scale 4-6) Pravastatin Sodium (Pravastatin Sodium 10 Mg Tablet) 10 mg PO DAILY [facility] Sodium Chloride (0.9 % Sodium Chloride Flush 3 Ml Syringe) 3 ml IVFLUSH QSHIFT RAYNE Last Admin: 10/11/24 00:13 Dose: Not Given Documented By: JOSE MARTIN Non-Admin Reason: 10 ml flush used Labs 10/10/24 14:56 10/10/24 14:56 Labs: Laboratory Results - last 24 hr 10/10/24 10/11/24 14:56 05:21 MCV 92.3 MCH 32.0 MCHC 34.7 RDW 12.9 Plt Count 162 MPV 10.4 Immature Gran % (Auto) 1.8 H Neut % (Auto) 72.3 Lymph % (Auto) 19.7 L [place] % (Auto) 5.2 Eos % (Auto) 0.6 Baso % (Auto) 0.4 Lymph # (Auto) 1.6 [place] # (Auto) 0.4 Eos # (Auto) 0.1 Baso # (Auto) 0.0 Abs Immat Gran (auto) 0.15 H Absolute Neuts (auto) 5.9 Absolute Nucleated RBC 0.000 Nucleated RBC % (auto) 0.0 Hold Purple Top SEE NOTE PT 11.8 INR 1.0 Anion Gap 16 Estim Creat Clear Calc 51.3 Estimated GFR > 60 Random Glucose 125 H Calcium 10.1 Magnesium 1.8 Total Bilirubin 0.5 AST 25 ALT 12 Alkaline Phosphatase 46 Total Protein 7.7 Albumin 4.1 Hold Green Top See Note Blood Type O Positive Antibody Screen NEGATIVE Assessment and Plan (1) Fracture of sacrum: Status: Acute (2) Closed fracture of pubic ramus: Status: Acute (3) Fracture of radius and ulna, open: Status: Acute (4) Pelvic fracture: Status: Acute (5) Fracture of left distal radius: Status: Acute (6) Fracture of distal end of left ulna: Status: Acute Plan 79-year-old female with a PMH significant for?HTN, HLD, and osteoporosis who presents to the ED with?right wrist and right hip pain after mechanical fall at home. Pt will be admitted to the hospital for treatment and further evaluation of acute open right wrist fracture and pubic fractures secondary to mechanical fall. Acute Right wrist open fracture Initial x-ray showed acute comminuted dorsally displaced fracture of distal metaphysis of radius and ulna Right wrist reduced, splinted, and put in sling in the ED Elevate arm with 1 pillow Continue empiric IV Zosyn, started 10/10/2024 IV morphine/oxycodone/ antiemetics Orthopedic consult with plan for surgery on Sunday Acute Pubic fractures Pelvis CT showing acute fractures of right superior pubic ramus and right sacral ala Non-weight bearing for now, continue supportive care Ortho consult PT/OT eval prior to discharge HTN Stable blood pressure on lisinopril 25 mg daily, but patient complaining of nasal drip since on lisinopril will transition to losartan Continue lisinopril Labetalol 5 mg IV p.r.n. for SBP >180 HLD Continue statin Full Code DVT Prophylaxis: Pneumatic compression due to impending surgery Pt will require continued inpatient hospitalization for treatment of?acute open right wrist fracture and pubic fracture secondary to mechanical fall that will require surgical intervention and administration of IV antibiotics and IV analgesics. Quality Stroke Does the patient have a stroke diagnosis?: No VTE Prior VTE?: No VTE Risk Level:: Medical - moderate - high VTE Device Contraindication: N/A - Device Ordered VTE Drug Contraindication: Treatment Not Indicated
[2024-10-11] MEDS: Calcium Oyster Shell Elemental 500 MG TABLET PO ×2 (08:32→21:50)
[2024-10-11] MEDS: Docusate Sodium 100 MG CAPSULE PO (08:32)
[2024-10-11] MEDS: Multivitamin TABLET 1 TAB PO (08:33)
[2024-10-11] MEDS: lisinopriL 5 MG TABLET PO (08:33)
[2024-10-11] MEDS: Pravastatin Sodium 10 MG TABLET PO (08:33)
[2024-10-11] MEDS: lisinopriL 20 MG TABLET PO (08:33)
[2024-10-11] MEDS: Loratadine 10 MG TABLET PO (08:33)
[2024-10-11] MEDS: 0.9 % Sodium Chloride Flush 3 ML SYRINGE IVFLUSH ×3 (08:34→22:45)
--- NOTE | 2024-10-11 10:31 | PM.PNORT ---
Subjective Subjective Date of Service: 10/11/24 Interval history: Patient was an 79-year-old female admitted to the hospital for evaluation of right open distal radius and distal ulna fractures, as well as right-sided sacral ala and superior pubic ramus fractures Patient was resting comfortably in bed this morning Pain well managed No acute events overnight No other acute complaints or concerns at this time Physical Exam Vital Signs: Vital Signs: Last Vital Signs Temp 98.4 F 10/11/24 08:21 Pulse 88 10/11/24 08:21 Resp 18 10/11/24 08:21 BP 129/58 L 10/11/24 08:33 Pulse Ox 96 10/11/24 08:21 O2 Del Method Room Air 10/11/24 08:21 O2 Flow Rate 2 10/11/24 03:52 BMI result Body Mass Index 25.2 Extrem: Other: Sugar-tong splint on left forearm and wrist clean, dry, intact No evidence of surrounding erythema, ecchymosis No evidence of infection Patient is able to flex and extend the digits of the left hand without difficulty Distal sensation intact Capillary refill brisk On inspection of the R leg, there is no visible deformity of the RLE No shortening or external rotation noted No ecchymosis of the RLE noted Distal sensation intact Capillary refill brisk Procedures Date of Service Date of Service: 10/11/24 Progress Note: A&P Assessment and plan (1) Closed fracture of pubic ramus: Status: Acute (2) Fracture of radius and ulna, open: Status: Acute (3) Fracture of sacrum: Status: Acute Plan 1. Open distal radius and distal ulna fractures Date of injury 10/10/2024 Continue IV antibiotics per Medicine Patient was to remain in splint at all times, splint to remain clean, dry, intact Plan for surgery on 10/13/[address] Zamorano Continue pain management Continue with all other recommendations per Medicine 2. Right sacral ala and superior pubic ramus fractures Date of injury 10/10/2024 Nonweightbearing on right lower extremity, should be in wheelchair for transfers Continue pain management Follow-up with orthopedics upon discharge Continue with all recommendations per Medicine Time Spent With Patient Time: Total time managing care of this patient today ____ minutes. Quality Stroke Does the patient have a stroke diagnosis?: No VTE Prior VTE?: No VTE Risk Level:: Medical - moderate - high VTE Device Contraindication: N/A - Device Ordered VTE Drug Contraindication: Treatment Not Indicated
[2024-10-11] MEDS: polyethylene glycoL 3350 17 GM POWD.PACK PO (13:42)
--- NOTE | 2024-10-11 15:37 | MHC.CM.PN ---
PT REPORTS SHE LIVES ALONE BUT HER DAUGHTER LIVES 8 MINUTES AWAY AND VISITS OFTEN SHE DENIES USE OF DME OR HOME SERVICES HCP ON FILE PCP: MIESHA CHAN IMM DELIVERED DCP TBD PENDING OT MARY [facility] PT REPORTS SHE WENT OUTPATIENT TO [facility] WHEN SHE FRACTURED HER OTHER WRIST SHE SAYS THIS WOULD BE HER PREFERRED DCP. HOWEVER IS UNSURE IF HER DAUGHTER COULD TRANSPORT
[2024-10-11] MEDS: Acetaminophen 325 MG TABLET 650 MG PO (21:50)
[2024-10-12 03:11] VITALS: BP 139/66; PULSE 88; RESP 18; TEMP 36.9; O2SAT 93
[2024-10-12] MEDS: Morphine Sulfate 4 MG/ML CARTRIDGE IVPUSH ×3 (03:31→20:57)
[2024-10-12] MEDS: Piperacillin Sodium/Tazobactam 3.375 GM in 0.9 % Sodium Chloride 50 ML IV ×4 (05:28→22:06)
[2024-10-12 07:27] VITALS: BP 131/68; PULSE 83; RESP 16; TEMP 36.9; O2SAT 93
[2024-10-12] MEDS: Multivitamin TABLET 1 TAB PO (08:27)
[2024-10-12] MEDS: Docusate Sodium 100 MG CAPSULE PO (08:28)
[2024-10-12] MEDS: Loratadine 10 MG TABLET PO (08:28)
[2024-10-12] MEDS: Pravastatin Sodium 10 MG TABLET PO (08:28)
[2024-10-12] MEDS: polyethylene glycoL 3350 17 GM POWD.PACK PO (08:28)
[2024-10-12] MEDS: Losartan Potassium 50 MG TABLET PO (08:28)
[2024-10-12] MEDS: Calcium Oyster Shell Elemental 500 MG TABLET PO ×2 (08:28→20:56)
[2024-10-12] MEDS: 0.9 % Sodium Chloride Flush 3 ML SYRINGE IVFLUSH ×3 (08:29→21:06)
[2024-10-12] MEDS: Acetaminophen 325 MG TABLET 650 MG PO ×2 (08:38→16:34)
--- NOTE | 2024-10-12 09:28 | PM.PNORT ---
Subjective Subjective Date of Service: 10/12/24 Interval history: Patient was an 79-year-old female admitted to the hospital for evaluation of right open distal radius and distal ulna fractures, as well as right-sided sacral ala and superior pubic ramus fractures Patient was resting comfortably in bed this morning Pain well managed No acute events overnight No other acute complaints or concerns at this time Physical Exam Vital Signs: Vital Signs: Last Vital Signs Temp 98.5 F 10/12/24 07:27 Pulse 83 10/12/24 07:27 Resp 16 10/12/24 07:27 BP 131/68 10/12/24 07:27 Pulse Ox 93 10/12/24 07:27 O2 Del Method Room Air 10/12/24 07:27 O2 Flow Rate 2 10/11/24 03:52 BMI result Body Mass Index 25.2 Extrem: Other: Sugar-tong splint on left forearm and wrist clean, dry, intact No evidence of surrounding erythema, ecchymosis No evidence of infection Patient is able to flex and extend the digits of the left hand without difficulty Distal sensation intact Capillary refill brisk On inspection of the R leg, there is no visible deformity of the RLE No shortening or external rotation noted No ecchymosis of the RLE noted Distal sensation intact Capillary refill brisk Procedures Date of Service Date of Service: 10/12/24 Progress Note: A&P Assessment and plan (1) Closed fracture of pubic ramus: Status: Acute (2) Fracture of radius and ulna, open: Status: Acute (3) Fracture of sacrum: Status: Acute Plan 1. Open distal radius and distal ulna fractures Date of injury 10/10/2024 Continue IV antibiotics per Medicine Patient was to remain in splint at all times, splint to remain clean, dry, intact Plan for surgery on 10/13/[address] Zamorano I educated the patient about the condition. I discussed both operative and nonoperative treatment options. The patient would like to proceed with surgery. The risks and benefits of operative treatment were discussed with the patient and the patient wishes to proceed with surgery. These risks include, but are not limited to, risk of damage to blood vessels, nerves, tendons, infection, recurrence, incomplete relief of preoperative symptoms, persistent pain, possible need for further surgery, and the risks associated with regional blocks and/or anesthesia. Plan is to take the patient to the operating room on 10/13/2024 for the following procedures: 1. I and D and ORIF of right distal radius and distal ulna 2. Right sacral ala and superior pubic ramus fractures Date of injury 10/10/2024 Nonweightbearing on right lower extremity, should be in wheelchair for transfers Continue pain management Follow-up with orthopedics upon discharge Continue with all recommendations per Medicine Time Spent With Patient Time: Total time managing care of this patient today ____ minutes. Quality Stroke Does the patient have a stroke diagnosis?: No VTE Prior VTE?: No VTE Risk Level:: Medical - moderate - high VTE Device Contraindication: N/A - Device Ordered VTE Drug Contraindication: Treatment Not Indicated
--- NOTE | 2024-10-12 11:07 | P.PNIM_ITS ---
Subjective Subjective Date of Service: 10/12/24 Interval History: Complaining right wrist pain 5/10 took 2 Tylenol, avoiding narcotics due to fear of addiction, tolerating diet no nausea, no vomiting or abdominal pain, no headache no acute events overnight. Review of Systems All other system reviewed and are negative Physical Exam 2 Vital Signs: Vital Signs: Last Vital Signs Temp 98.5 F 10/12/24 07:27 Pulse 83 10/12/24 07:27 Resp 16 10/12/24 07:27 BP 131/68 10/12/24 07:27 Pulse Ox 93 10/12/24 07:27 O2 Del Method Room Air 10/12/24 07:27 O2 Flow Rate 2 10/11/24 03:52 BMI result Body Mass Index 25.2 Const: Other: General resting comfortably in no acute distress. Neck no JVD. CVS regular rate rhythm, Respiratory lungs clear to auscultation, no respiratory distress Gastrointestinal abdomen soft, non tender, bowel sounds audible Extremities no edema. Right arm in sling Neuro non focal Skin no rash Objective Data Active Medications Acetaminophen (Acetaminophen 325 Mg Tablet) 650 mg PO Q6H PRN PRN Reason: Pain, Mild 1-3,fever,headache Last Admin: 10/12/24 08:38 Dose: 650 mg Documented By: EDILBERTO Calcium Carbonate (Calcium Carbonate 750 Mg Tab.Chew) 750 mg PO Q4H PRN PRN Reason: Heartburn Calcium Carbonate (Calcium Oyster Shell Elemental 500 Mg Tablet) 500 mg PO BID [facility] Last Admin: 10/12/24 08:28 Dose: 500 mg Documented By: EDILBERTO Docusate Sodium (Docusate Sodium 100 Mg Capsule) 100 mg PO DAILY [facility] Last Admin: 10/12/24 08:28 Dose: 100 mg Documented By: EDILBERTO Guaifenesin/Dextromethorphan (Guaifenesin Dm 600/30 1 Tab Tab.Er.12h) 1 tab PO Q12H PRN PRN Reason: Cough Piperacillin Sod/Tazobactam (Sod 3.375 gm/ Sodium Chloride) 50 mls @ 100 mls/hr IV Q6H [facility] Last Infusion: 10/12/24 05:59 Dose: Infused Documented By: CORA Labetalol HCl (Labetalol Hcl 100 Mg/20 Ml Vial) 5 mg IVPUSH Q6H PRN PRN Reason: SBP >180 Loratadine (Loratadine 10 Mg Tablet) 10 mg PO DAILY [facility] Last Admin: 10/12/24 08:28 Dose: 10 mg Documented By: EDILBERTO Losartan Potassium (Losartan Potassium 50 Mg Tablet) 50 mg PO DAILY [facility]; Protocol Last Admin: 10/12/24 08:28 Dose: 50 mg Documented By: EDILBERTO Magnesium Hydroxide (Milk Of Magnesia 30 Ml Oral.Susp) 30 ml PO DAILY PRN PRN Reason: Constipation Melatonin (Melatonin 3 Mg Tablet) 6 mg PO BEDTIME PRN PRN Reason: Insomnia Morphine Sulfate (Morphine Sulfate 4 Mg/Ml Cartridge) 4 mg IVPUSH Q4H PRN; Protocol PRN Reason: Pain, Severe (Pain Scale 7-10) Last Admin: 10/12/24 03:31 Dose: 4 mg Documented By: CORA Multivitamins/Vitamin C (Multivitamin Tablet) 1 tab PO DAILY [facility] Last Admin: 10/12/24 08:27 Dose: 1 tab Documented By: EDILBERTO Ondansetron HCl (Ondansetron Hcl 4 Mg/2 Ml Vial) 4 mg IVPUSH Q8H PRN PRN Reason: Nausea and Vomiting Oxycodone HCl (Oxycodone Hcl Immed Release 5 Mg Tablet) 5 mg PO Q6H PRN PRN Reason: Pain, Moderate(Pain Scale 4-6) Polyethylene Glycol (Polyethylene Glycol 3350 17 Gm Powd.Pack) 17 gm PO DAILY [facility] Last Admin: 10/12/24 08:28 Dose: 17 gm Documented By: EDILBERTO Pravastatin Sodium (Pravastatin Sodium 10 Mg Tablet) 10 mg PO DAILY [facility] Last Admin: 10/12/24 08:28 Dose: 10 mg Documented By: EDILBERTO Senna (Sennosides 8.6 Mg Tablet) 17.2 mg PO BEDTIME PRN PRN Reason: Constipation Sodium Chloride (0.9 % Sodium Chloride Flush 3 Ml Syringe) 3 ml IVFLUSH QSHIFT [facility] Last Admin: 10/12/24 08:29 Dose: 3 ml Documented By: EDILBERTO Labs 10/10/24 14:56 10/10/24 14:56 Assessment and Plan (1) Fracture of sacrum: Status: Acute (2) Closed fracture of pubic ramus: Status: Acute (3) Fracture of radius and ulna, open: Status: Acute Plan 79-year-old female with a PMH significant for?HTN, HLD, and osteoporosis who presents to the ED with?right wrist and right hip pain after mechanical fall at home. Pt will be admitted to the hospital for treatment and further evaluation of acute open right wrist fracture and pubic fractures secondary to mechanical fall. Acute Right wrist open fracture Initial x-ray showed acute comminuted dorsally displaced fracture of distal metaphysis of radius and ulna Right wrist reduced, splinted, and in sling Elevate arm with 1 pillow Continue empiric IV Zosyn, started 10/10/2024 IV morphine/oxycodone/ antiemetics, encouraged to use pain medications if needed Orthopedic consult with plan for surgery on Sunday Stable H&H and electrolytes, blood sugar 125 no hx of DM Acute Pubic fractures Pelvis CT showing acute fractures of right superior pubic ramus and right sacral ala Non-weight bearing for now, continue supportive care PT/OT eval HTN Stable blood pressure on lisinopril 25 mg daily, but patient complaining of nasal drip since on lisinopril ,will place on losartan 50 mg and DC lisinopril Labetalol 5 mg IV p.r.n. for SBP >180 HLD Continue statin Full Code DVT Prophylaxis: Pneumatic compression due to impending surgery Pt will require continued inpatient hospitalization for treatment of?acute open right wrist fracture and pubic fracture secondary to mechanical fall that will require surgical intervention and administration of IV antibiotics and IV analgesics. Quality Stroke Does the patient have a stroke diagnosis?: No VTE Prior VTE?: No VTE Risk Level:: Medical - moderate - high VTE Device Contraindication: N/A - Device Ordered VTE Drug Contraindication: Treatment Not Indicated
[2024-10-12 15:04] VITALS: BP 138/65; PULSE 88; RESP 16; TEMP 36.7; O2SAT 91
[2024-10-12 19:23] VITALS: BP 124/65; PULSE 93; RESP 18; TEMP 36.8; O2SAT 93
[2024-10-12] MEDS: Sennosides 8.6 MG TABLET 17.2 MG PO (20:56)
[2024-10-12] MEDS: Melatonin 3 MG TABLET 6 MG PO (20:56)
[2024-10-13] VITALS (12 sets, daily range): BP systolic 138–161; BP diastolic 59–81; PULSE 83–94; RESP 16–17; TEMP 36.5–37.3; O2SAT 89–96
[2024-10-13] MEDS: Piperacillin Sodium/Tazobactam 3.375 GM in 0.9 % Sodium Chloride 50 ML IV ×4 (05:14→23:23)
[2024-10-13] MEDS: Morphine Sulfate 4 MG/ML CARTRIDGE IVPUSH (05:26)
[2024-10-13] MEDS: Loratadine 10 MG TABLET PO (09:02)
[2024-10-13] MEDS: Docusate Sodium 100 MG CAPSULE PO (09:02)
[2024-10-13] MEDS: Calcium Oyster Shell Elemental 500 MG TABLET PO ×2 (09:02→19:52)
[2024-10-13] MEDS: Pravastatin Sodium 10 MG TABLET PO (09:02)
[2024-10-13] MEDS: Losartan Potassium 50 MG TABLET PO (09:02)
--- NOTE | 2024-10-13 10:29 | HO.PM.IMPN ---
Subjective Subjective Date of Service: 10/13/24 Interval History: Being followed for right wrist open fracture and as well as right-sided sacral ala and superior pubic ramus fractures NPO scheduled for I and D and ORIF of right distal radius and distal ulna Feels anxious for the procedure, complaining of constipation. Review of Systems All other system reviewed and are negative Physical Exam Vital Signs: Vital Signs: Last Vital Signs Temp 97.9 F 10/13/24 07:34 Pulse 89 10/13/24 07:34 Resp 16 10/13/24 07:34 BP 140/73 H 10/13/24 09:02 Pulse Ox 92 10/13/24 07:34 O2 Del Method Room Air 10/13/24 07:34 O2 Flow Rate 2 10/11/24 03:52 BMI result Body Mass Index 25.2 Const: Other: General resting comfortably in no acute distress. Neck no JVD. CVS regular rate rhythm, Respiratory lungs clear to auscultation, no respiratory distress Gastrointestinal abdomen soft, non tender, bowel sounds audible Extremities no edema. Right arm in sling Neuro non focal Skin no rash Objective Data Active Medications Acetaminophen (Acetaminophen 325 Mg Tablet) 650 mg PO Q6H PRN PRN Reason: Pain, Mild 1-3,fever,headache Last Admin: 10/12/24 16:34 Dose: 650 mg Documented By: EDILBERTO Calcium Carbonate (Calcium Carbonate 750 Mg Tab.Chew) 750 mg PO Q4H PRN PRN Reason: Heartburn Calcium Carbonate (Calcium Oyster Shell Elemental 500 Mg Tablet) 500 mg PO BID [facility] Last Admin: 10/13/24 09:02 Dose: 500 mg Documented By: GRACE Docusate Sodium (Docusate Sodium 100 Mg Capsule) 100 mg PO DAILY [facility] Last Admin: 10/13/24 09:02 Dose: 100 mg Documented By: GRACE Guaifenesin/Dextromethorphan (Guaifenesin Dm 600/30 1 Tab Tab.Er.12h) 1 tab PO Q12H PRN PRN Reason: Cough Piperacillin Sod/Tazobactam (Sod 3.375 gm/ Sodium Chloride) 50 mls @ 100 mls/hr IV Q6H [facility] Last Infusion: 10/13/24 05:50 Dose: Infused Documented By: RONDA Labetalol HCl (Labetalol Hcl 100 Mg/20 Ml Vial) 5 mg IVPUSH Q6H PRN PRN Reason: SBP >180 Loratadine (Loratadine 10 Mg Tablet) 10 mg PO DAILY [facility] Last Admin: 10/13/24 09:02 Dose: 10 mg Documented By: GRACE Losartan Potassium (Losartan Potassium 50 Mg Tablet) 50 mg PO DAILY [facility]; Protocol Last Admin: 10/13/24 09:02 Dose: 50 mg Documented By: GRACE Magnesium Hydroxide (Milk Of Magnesia 30 Ml Oral.Susp) 30 ml PO DAILY PRN PRN Reason: Constipation Melatonin (Melatonin 3 Mg Tablet) 6 mg PO BEDTIME PRN PRN Reason: Insomnia Last Admin: 10/12/24 20:56 Dose: 6 mg Documented By: RONDA Morphine Sulfate (Morphine Sulfate 4 Mg/Ml Cartridge) 4 mg IVPUSH Q4H PRN; Protocol PRN Reason: Pain, Severe (Pain Scale 7-10) Last Admin: 10/13/24 05:26 Dose: 4 mg Documented By: RONDA Multivitamins/Vitamin C (Multivitamin Tablet) 1 tab PO DAILY [facility] Last Admin: 10/13/24 10:19 Dose: Not Given Documented By: GRACE Non-Admin Reason: Physician Approved Ondansetron HCl (Ondansetron Hcl 4 Mg/2 Ml Vial) 4 mg IVPUSH Q8H PRN PRN Reason: Nausea and Vomiting Oxycodone HCl (Oxycodone Hcl Immed Release 5 Mg Tablet) 5 mg PO Q6H PRN PRN Reason: Pain, Moderate(Pain Scale 4-6) Polyethylene Glycol (Polyethylene Glycol 3350 17 Gm Powd.Pack) 17 gm PO DAILY [facility] Last Admin: 10/13/24 10:19 Dose: Not Given Documented By: GRACE Non-Admin Reason: Physician Approved Pravastatin Sodium (Pravastatin Sodium 10 Mg Tablet) 10 mg PO DAILY [facility] Last Admin: 10/13/24 09:02 Dose: 10 mg Documented By: GRACE Senna (Sennosides 8.6 Mg Tablet) 17.2 mg PO BEDTIME PRN PRN Reason: Constipation Last Admin: 10/12/24 20:56 Dose: 17.2 mg Documented By: RONDA Sodium Chloride (0.9 % Sodium Chloride Flush 3 Ml Syringe) 3 ml IVFLUSH QSHIFT [facility] Last Admin: 10/13/24 08:49 Dose: Not Given Documented By: GRACE Non-Admin Reason: Previously Administered Labs 10/10/24 14:56 10/10/24 14:56 Assessment and Plan (1) Fracture of sacrum: Status: Acute (2) Closed fracture of pubic ramus: Status: Acute (3) Fracture of radius and ulna, open: Status: Acute Plan 79-year-old female with a PMH significant for?HTN, HLD, and osteoporosis who presents to the ED with?right wrist and right hip pain after mechanical fall at home. Pt will be admitted to the hospital for treatment and further evaluation of acute open right wrist fracture and pubic fractures secondary to mechanical fall. Acute Right open distal radius and distal ulna fractures Initial x-ray showed acute comminuted dorsally displaced fracture of distal metaphysis of radius and ulna Right wrist reduced, splinted, and in sling Continue empiric IV Zosyn, started 10/10/2024 IV morphine/oxycodone/ antiemetics, encouraged to use pain medications if needed Stable H&H and electrolytes, blood sugar 125 no hx of DM NPO scheduled forI and D and ORIF of right distal radius and distal ulna today Acute Pubic fractures Pelvis CT showing acute fractures of right superior pubic ramus and right sacral ala Non-weight bearing on right lower extremity, wheelchair for transfer Continue pain management/outpatient follow-up with ortho PT/OT eval HTN Stable blood pressure on lisinopril 25 mg daily, but patient complaining of nasal drip since on lisinopril , therefore lisinopril substituted for losartan 50 mg with good blood pressure control HLD Continue statin Full Code DVT Prophylaxis: Pneumatic compression Pt will require continued inpatient hospitalization for treatment of?acute open right wrist fracture and pubic fracture secondary to mechanical fall that will require surgical intervention and administration of IV antibiotics and IV analgesics. Quality Stroke Does the patient have a stroke diagnosis?: No VTE Prior VTE?: No VTE Risk Level:: Medical - moderate - high VTE Device Contraindication: N/A - Device Ordered VTE Drug Contraindication: Treatment Not Indicated
--- NOTE | 2024-10-13 12:10 | HO.WOUND ---
Wound consult: Attempted Arrival to bedside patient was off unit in the OR. Will attempt skin assessment at future date and time.
--- NOTE | 2024-10-13 13:02 | P.CONAN_ITS ---
[facility] Active Problems Active Problems: All Active Problems (Updated 10/13/24 @ 12:11 by Vitkoriya Neves RN) Fracture of sacrum (Acute) Closed fracture of pubic ramus (Acute) Fracture of radius and ulna, open (Acute) Pelvic fracture (Acute) Fracture of distal end of left ulna (Acute) Fracture of left distal radius (Acute) Past Medical History Medical History (Updated 10/13/24 @ 12:11 by Viktoriya Neves RN) Enlarged aorta Osteoporosis Allergies Elevated cholesterol PONV (postoperative nausea and vomiting) HTN (hypertension) Family History Family history of problems with anesthesia: No Surgical History Surgical History Hx of colonoscopy Hx of left cataract extraction Hx of hysterectomy Hx of tonsillectomy History of Problems with Anesthesia: No Social History Social History Household Members: None Housing: House Do you presently have visiting nurse or other home services: No Unable to assess alcohol history related to: Unknown Alcohol intake: never Patient Tobacco Use Status: Former Tobacco user Second Hand Smoke Exposure: No Advance Directives Date on File: 11/29/23 service: No Current occupational status: retired Current occupation: right hand dominant Meds Allergies Allergy/AdvReac Type Severity Reaction Status Date / Time azithromycin AdvReac Stomach Verified 10/13/24 12:12 Upset doxycycline AdvReac Gastrointestinal Verified 10/11/24 16:17 Upset sulfamethoxazole AdvReac Stomach Verified 10/13/24 12:12 [From Bactrim] Upset trimethoprim [From Bactrim] AdvReac Stomach Verified 10/13/24 12:12 Upset Active Medications: Current Medications Acetaminophen (Acetaminophen 325 Mg Tablet) 650 mg PO Q6H PRN PRN Reason: Pain, Mild 1-3,fever,headache Last Admin: 10/12/24 16:34 Dose: 650 mg Calcium Carbonate (Calcium Carbonate 750 Mg Tab.Chew) 750 mg PO Q4H PRN PRN Reason: Heartburn Calcium Carbonate (Calcium Oyster Shell Elemental 500 Mg Tablet) 500 mg PO BID [facility] Last Admin: 10/13/24 09:02 Dose: 500 mg Docusate Sodium (Docusate Sodium 100 Mg Capsule) 100 mg PO DAILY [facility] Last Admin: 10/13/24 09:02 Dose: 100 mg Guaifenesin/Dextromethorphan (Guaifenesin Dm 600/30 1 Tab Tab.Er.12h) 1 tab PO Q12H PRN PRN Reason: Cough Piperacillin Sod/Tazobactam (Sod 3.375 gm/ Sodium Chloride) 50 mls @ 100 mls/hr IV Q6H [facility] Last Admin: 10/13/24 11:38 Dose: 100 mls/hr Labetalol HCl (Labetalol Hcl 100 Mg/20 Ml Vial) 5 mg IVPUSH Q6H PRN PRN Reason: SBP >180 Lactulose (Lactulose 20 Gm/30 Ml Solution) 20 gm PO DAILY PRN PRN Reason: Constipation Loratadine (Loratadine 10 Mg Tablet) 10 mg PO DAILY [facility] Last Admin: 10/13/24 09:02 Dose: 10 mg Losartan Potassium (Losartan Potassium 50 Mg Tablet) 50 mg PO DAILY [facility]; Protocol Last Admin: 10/13/24 09:02 Dose: 50 mg Magnesium Hydroxide (Milk Of Magnesia 30 Ml Oral.Susp) 30 ml PO DAILY PRN PRN Reason: Constipation Melatonin (Melatonin 3 Mg Tablet) 6 mg PO BEDTIME PRN PRN Reason: Insomnia Last Admin: 10/12/24 20:56 Dose: 6 mg Morphine Sulfate (Morphine Sulfate 4 Mg/Ml Cartridge) 4 mg IVPUSH Q4H PRN; Protocol PRN Reason: Pain, Severe (Pain Scale 7-10) Last Admin: 10/13/24 05:26 Dose: 4 mg Multivitamins/Vitamin C (Multivitamin Tablet) 1 tab PO DAILY [facility] Last Admin: 10/13/24 10:19 Dose: Not Given Ondansetron HCl (Ondansetron Hcl 4 Mg/2 Ml Vial) 4 mg IVPUSH Q8H PRN PRN Reason: Nausea and Vomiting Oxycodone HCl (Oxycodone Hcl Immed Release 5 Mg Tablet) 5 mg PO Q6H PRN PRN Reason: Pain, Moderate(Pain Scale 4-6) Polyethylene Glycol (Polyethylene Glycol 3350 17 Gm Powd.Pack) 17 gm PO DAILY [facility] Last Admin: 10/13/24 10:19 Dose: Not Given Pravastatin Sodium (Pravastatin Sodium 10 Mg Tablet) 10 mg PO DAILY [facility] Last Admin: 10/13/24 09:02 Dose: 10 mg Senna (Sennosides 8.6 Mg Tablet) 17.2 mg PO BEDTIME PRN PRN Reason: Constipation Last Admin: 10/12/24 20:56 Dose: 17.2 mg Sodium Chloride (0.9 % Sodium Chloride Flush 3 Ml Syringe) 3 ml IVFLUSH QSHIFT [facility] Last Admin: 10/13/24 08:49 Dose: Not Given Home Medications ?Medication ?Instructions ?Recorded ?Confirmed ?Last Taken ?Type acetaminophen 500 mg tablet 1,000 mg PO TID PRN Pain 11/29/23 10/10/24 Unknown History (Acetaminophen Extra Strength) cetirizine 10 mg tablet 10 mg PO DAILY 11/29/23 10/10/24 10/10/24 History dextromethorphan-guaifenesin 30 1 tab PO Q12H PRN Cough 11/29/23 10/10/24 Unknown History mg-600 mg tablet extended [id number] hr docusate sodium 100 mg tablet 100 mg PO DAILY 11/29/23 10/10/24 10/10/24 History multivitamin 1 tab PO DAILY 11/29/23 10/10/24 10/10/24 History pravastatin 10 mg tablet 10 mg PO DAILY 11/29/23 10/10/24 10/10/24 History lisinopril 20 mg tablet 20 mg PO DAILY 02/12/24 10/10/24 10/10/24 History aspirin 81 mg tablet,delayed 81 mg PO BEDTIME 10/10/24 10/10/24 10/09/24 History release biotin 1 mg tablet 1 mg PO DAILY 10/10/24 10/10/24 10/10/24 History calcium carbonate (Calcium 600) 600 mg PO BID 10/10/24 10/10/24 10/10/24 History lisinopril 5 mg tablet 5 mg PO DAILY 10/10/24 10/10/24 10/10/24 History Exam Height,Weight and Vital Signs: Height 5 ft 4 in Weight 66.6 kg Last Vital Signs Temp 99.2 F 10/13/24 12:21 Pulse 94 10/13/24 12:21 Resp 16 10/13/24 12:21 BP 161/81 H 10/13/24 12:21 Pulse Ox 94 10/13/24 12:39 O2 Del Method Nasal Cannula 10/13/24 12:39 O2 Flow Rate 2 10/13/24 12:39 Pertinent Lab Results Pertinent Lab Results: Laboratory Tests 10/10/24 10/11/24 14:56 05:21 WBC 8.1 RBC 4.00 L Hgb 12.8 Hct 36.9 L MCV 92.3 MCH 32.0 MCHC 34.7 RDW 12.9 Plt Count 162 MPV 10.4 Immature Gran % (Auto) 1.8 H Neut % (Auto) 72.3 Lymph % (Auto) 19.7 L [place] % (Auto) 5.2 Eos % (Auto) 0.6 Baso % (Auto) 0.4 Lymph # (Auto) 1.6 [place] # (Auto) 0.4 Eos # (Auto) 0.1 Baso # (Auto) 0.0 Abs Immat Gran (auto) 0.15 H Absolute Neuts (auto) 5.9 Absolute Nucleated RBC 0.000 Nucleated RBC % (auto) 0.0 Hold Purple Top SEE NOTE PT 11.8 INR 1.0 Sodium 139 Potassium 3.7 Chloride 105 Carbon Dioxide 22 Anion Gap 16 BUN 15 Creatinine 0.82 Estim Creat Clear Calc 51.3 Estimated GFR > 60 Random Glucose 125 H Calcium 10.1 Magnesium 1.8 Total Bilirubin 0.5 AST 25 ALT 12 Alkaline Phosphatase 46 Total Protein 7.7 Albumin 4.1 Hold Green Top See Note Blood Type O Positive Antibody Screen NEGATIVE Airway Mallampati Class: II TM Dist: >3cm Neck ROM: Full Heart: rrr Lungs: cta Assessment and Plan Assessment Anesthesia Assessment: Anesthesia Plan Discussed and Chart Reviewed Final Anesthetic Review Family History of Problems with Anesthesia: No History of Problems with Anesthesia: No NPO: Yes ASA Class: III Final Preanesthetic Review: No Changes in Pt Med Stat, Meds/Allgs Chart Reviewed and Consent Obtained/Reviewed Patient Risk: Intermediate Procedure Risk: Low Anesthetic Plan Anesthetic Plan: GA Disposition: Standard PACU
--- NOTE | 2024-10-13 13:30 | MHC.SHP ---
Pre-Procedural Eval Section A - 24 Hr Update-Section A only Date of Service: 10/13/24 The patient is an INPATIENT: Yes Changes since office visit: Yes Cold of Flu in the past 2 weeks, Yes New Medical Problems, Yes Changes in Medication and Yes Patient answered all questions The patient has been examined within 24 hours of the surgical procedure. The History & Physical has been completed within 30 days and I have reviewed it.: Yes Section B - Complete if H&P > 30 days Chief Complaint: Open Right Wrist fracture Allergies: Allergies Allergy/AdvReac Type Severity Reaction Status Date / Time azithromycin AdvReac Stomach Verified 10/13/24 12:12 Upset doxycycline AdvReac Gastrointestinal Verified 10/11/24 16:17 Upset sulfamethoxazole AdvReac Stomach Verified 10/13/24 12:12 [From Bactrim] Upset trimethoprim [From Bactrim] AdvReac Stomach Verified 10/13/24 12:12 Upset Exam Exam Comment: Patient with right displaced distal radius and distal ulna fractures status post reduction. The patient is in a sugar-tong splint fingers are warm and pink and sensation is intact patient does have a wound on the ulnar side of the wrist that may represent an open distal ulna fracture Plan Diagnosis/Plan: Unchanged I have reviewed the history and physical and performed a pertinent physical examination on my patient. No changes have occurred unless specified. The risks and benefits of operative treatment were discussed with the patient and the patient wishes to proceed with surgery. These risks include, but are not limited to risk of damage to blood vessels, nerves, tendons, infection, recurrence, incomplete relief of preoperative symptoms, persistent pain, possible need for further surgery and the risks associated with regional blocks and anesthesia. The plan is to take the patient to the operating room today for the following procedures: 1. right distal radius ORIF 2. right distal ulna ORIF 3. Right wrist I and D All of the preoperative paperwork including the consent was filled out today. All the patient's questions were answered. Time Spent With Patient Time: Total time managing care of this patient today ____ minutes.
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
--- NOTE | 2024-10-13 14:08 | MHC.CM.PN ---
per rounds pt to or today no anticapted dc date at this time
[2024-10-13] MEDS: 0.9 % Sodium Chloride Flush 3 ML SYRINGE IVFLUSH (19:54)
[2024-10-13] MEDS: Melatonin 3 MG TABLET 6 MG PO (23:46)
[2024-10-14] VITALS (8 sets, daily range): BP systolic 142–176; BP diastolic 64–90; PULSE 75–98; RESP 16–18; TEMP 36.2–37.3; O2SAT 93–98
--- NOTE | 2024-10-14 05:09 | PC.NURSE ---
Pt's last two BP was elevated at 171/88 & 176/74, no complaints of pain, s/p R wrist ORIF. Pt has Hx of HTN. MD Dorantes was notified of the pt's elevated BP. okay this RN to give pt's RAYNE Losartan earlier, see MAR. Will continue to monitor pt's BP.
[2024-10-14] MEDS: Acetaminophen 325 MG TABLET 650 MG PO (05:18)
[2024-10-14] MEDS: Losartan Potassium 50 MG TABLET PO (05:19)
[2024-10-14] MEDS: Piperacillin Sodium/Tazobactam 3.375 GM in 0.9 % Sodium Chloride 50 ML IV ×4 (05:24→22:46)
[2024-10-14 05:55] LABS: Hematocrit 32.9 % (37.0-47.0); Hemoglobin 11.3 g/dl (12.0-16.0); Mean Corpuscular HGB Conc 34.3 g/dl (31.0-35.0); Mean Corpuscular Hemoglobin 31.7 pg (27.0-33.0); Mean Corpuscular Volume 92.2 fL (80.0-98.0); Mean Platelet Volume 10.6 fL (9.4-12.3); Platelet Count 129 X10*3/uL (160-400); Red Blood Count 3.57 X10*6/uL (4.20-5.50); White Blood Count 7.1 X10*3/uL (4.8-10.8)
[2024-10-14 06:09] LABS: Anion Gap 13 (12-20); Blood Urea Nitrogen 16 mg/dL (9-16); Calcium 9.2 mg/dL (8.4-10.2); Carbon Dioxide 25 mmol/L (22-29); Chloride 107 mmol/L (96-108); Creatinine Clr Calc Pharmacy 57.6; Estimated Glomerular Filt Rate > 60; Glucose Random 110 mg/dL (60-115); Potassium 4.1 mmol/L (3.3-5.1); Sodium 141 mmol/L (135-145)
--- NOTE | 2024-10-14 07:19 | PM.PNORT ---
Subjective Subjective Date of Service: 10/14/24 Interval history: Postop day 1 status post left distal radius distal ulna I and D/ORIF Patient resting comfortably in bed this morning Reports no pain in her wrist, does report some minor discomfort in her pelvis No acute events overnight No other acute complaints or concerns at this time Physical Exam Vital Signs: Vital Signs: Last Vital Signs Temp 97.3 F 10/14/24 04:00 Pulse 79 10/14/24 04:00 Resp 16 10/14/24 04:00 BP 176/74 H 10/14/24 04:00 Pulse Ox 96 10/14/24 04:00 O2 Del Method Nasal Cannula 10/14/24 04:00 O2 Flow Rate 2 10/14/24 04:00 BMI result Body Mass Index 25.2 Extrem: Other: Sugar-tong splint on left forearm and wrist clean, dry, intact No evidence of surrounding erythema, ecchymosis No evidence of infection Patient is able to flex and extend the digits of the left hand without difficulty Distal sensation intact Capillary refill brisk On inspection of the R leg, there is no visible deformity of the RLE No shortening or external rotation noted No ecchymosis of the RLE noted Distal sensation intact Capillary refill brisk Procedures Date of Service Date of Service: 10/14/24 Progress Note: A&P Assessment and plan (1) Closed fracture of pubic ramus: Status: Acute (2) Fracture of radius and ulna, open: Status: Acute (3) Fracture of sacrum: Status: Acute Plan 1. Open distal radius and distal ulna fractures Date of injury 10/10/2024 Continue IV antibiotics per Medicine Patient appears to be recovering well postoperatively Patient was educated about the typical recovery course Splint to remain clean, dry, intact at all times Patient should follow-up in 2 weeks in our office, appointment requested 2. Right sacral ala and superior pubic ramus fractures Date of injury 10/10/2024 Nonweightbearing on right lower extremity, should be in wheelchair for transfers Continue pain management Follow-up with orthopedics upon discharge Continue with all recommendations per Medicine Time Spent With Patient Time: Total time managing care of this patient today ____ minutes. Quality Stroke Does the patient have a stroke diagnosis?: No VTE Prior VTE?: No VTE Risk Level:: Medical - moderate - high VTE Device Contraindication: N/A - Device Ordered VTE Drug Contraindication: Treatment Not Indicated
[2024-10-14] MEDS: Multivitamin TABLET 1 TAB PO (08:22)
[2024-10-14] MEDS: Calcium Oyster Shell Elemental 500 MG TABLET PO ×2 (08:22→21:17)
[2024-10-14] MEDS: Loratadine 10 MG TABLET PO (08:22)
[2024-10-14] MEDS: Pravastatin Sodium 10 MG TABLET PO (08:22)
[2024-10-14] MEDS: polyethylene glycoL 3350 17 GM POWD.PACK PO (08:22)
[2024-10-14] MEDS: Docusate Sodium 100 MG CAPSULE PO (08:22)
--- NOTE | 2024-10-14 08:22 | HO.POSTANES ---
Post Anesthesia Evaluation Post Anesthesia Evaluation Date of Service: 10/14/24 Vital Signs: Vital Signs Temp Pulse Resp BP Pulse Ox O2 Del Method O2 Flow Rate 10/14/24 07:49 98.0 F 81 16 150/80 H 93 Room Air 10/14/24 04:00 97.3 F 79 16 176/74 H 96 Nasal Cannula 2 10/14/24 00:00 97.2 F 75 18 171/88 H 98 Nasal Cannula 2 Anesthesia: General Mental Status: Awake Pain Control: Satisfactory Nausea/Vomiting: None Hydration: Adequate Anesthesia-Related Issues: No Anes. Related Issues
--- NOTE | 2024-10-14 11:27 | HO.PM.IMPN ---
Subjective Subjective Date of Service: 10/14/24 Interval History: s/p postop day1 right distal and ulna ORIF. Complaining of arm pain Review of Systems Review of Systems: Yes all other systems are reviewed and are negative Physical Exam Vital Signs: Vital Signs: Last Vital Signs Temp 98.0 F 10/14/24 07:49 Pulse 81 10/14/24 07:49 Resp 16 10/14/24 07:49 BP 150/80 H 10/14/24 07:49 Pulse Ox 93 10/14/24 07:49 O2 Del Method Room Air 10/14/24 07:49 O2 Flow Rate 2 10/14/24 04:00 BMI result Body Mass Index 25.2 Const: Other: General resting comfortably in no acute distress. Neck no JVD. CVS regular rate rhythm, Respiratory lungs clear to auscultation, no respiratory distress Gastrointestinal abdomen soft, non tender, bowel sounds audible Extremities no edema. Right arm in sling Neuro non focal Skin no rash Objective Data Active Medications Acetaminophen (Acetaminophen 325 Mg Tablet) 650 mg PO Q6H PRN PRN Reason: Pain, Mild 1-3,fever,headache Last Admin: 10/14/24 05:18 Dose: 650 mg Documented By: VINCENZO Comments: per pt request Calcium Carbonate (Calcium Carbonate 750 Mg Tab.Chew) 750 mg PO Q4H PRN PRN Reason: Heartburn Calcium Carbonate (Calcium Oyster Shell Elemental 500 Mg Tablet) 500 mg PO BID [facility] Last Admin: 10/14/24 08:22 Dose: 500 mg Documented By: GRACE Docusate Sodium (Docusate Sodium 100 Mg Capsule) 100 mg PO DAILY [facility] Last Admin: 10/14/24 08:22 Dose: 100 mg Documented By: GRACE Guaifenesin/Dextromethorphan (Guaifenesin Dm 600/30 1 Tab Tab.Er.12h) 1 tab PO Q12H PRN PRN Reason: Cough Piperacillin Sod/Tazobactam (Sod 3.375 gm/ Sodium Chloride) 50 mls @ 100 mls/hr IV Q6H [facility] Last Infusion: 10/14/24 06:00 Dose: Infused Documented By: VINCENZO Labetalol HCl (Labetalol Hcl 100 Mg/20 Ml Vial) 5 mg IVPUSH Q6H PRN PRN Reason: SBP >180 Lactulose (Lactulose 20 Gm/30 Ml Solution) 20 gm PO DAILY PRN PRN Reason: Constipation Loratadine (Loratadine 10 Mg Tablet) 10 mg PO DAILY [facility] Last Admin: 10/14/24 08:22 Dose: 10 mg Documented By: GRACE Losartan Potassium (Losartan Potassium 50 Mg Tablet) 50 mg PO DAILY [facility]; Protocol Last Admin: 10/14/24 05:19 Dose: 50 mg Documented By: VINCENZO Comments: pt w/ elevated BP, MD Dorantes aware, okay to give medication earlier, see nurse note Magnesium Hydroxide (Milk Of Magnesia 30 Ml Oral.Susp) 30 ml PO DAILY PRN PRN Reason: Constipation Melatonin (Melatonin 3 Mg Tablet) 6 mg PO BEDTIME PRN PRN Reason: Insomnia Last Admin: 10/13/24 23:46 Dose: 6 mg Documented By: VINCENZO Morphine Sulfate (Morphine Sulfate 4 Mg/Ml Cartridge) 4 mg IVPUSH Q4H PRN; Protocol PRN Reason: Pain, Severe (Pain Scale 7-10) Last Admin: 10/13/24 05:26 Dose: 4 mg Documented By: RONDA Multivitamins/Vitamin C (Multivitamin Tablet) 1 tab PO DAILY [facility] Last Admin: 10/14/24 08:22 Dose: 1 tab Documented By: GRACE Ondansetron HCl (Ondansetron Hcl 4 Mg/2 Ml Vial) 4 mg IVPUSH Q8H PRN PRN Reason: Nausea and Vomiting Oxycodone HCl (Oxycodone Hcl Immed Release 5 Mg Tablet) 5 mg PO Q6H PRN PRN Reason: Pain, Moderate(Pain Scale 4-6) Polyethylene Glycol (Polyethylene Glycol 3350 17 Gm Powd.Pack) 17 gm PO DAILY [facility] Last Admin: 10/14/24 08:22 Dose: 17 gm Documented By: GRACE Pravastatin Sodium (Pravastatin Sodium 10 Mg Tablet) 10 mg PO DAILY [facility] Last Admin: 10/14/24 08:22 Dose: 10 mg Documented By: GRACE Senna (Sennosides 8.6 Mg Tablet) 17.2 mg PO BEDTIME PRN PRN Reason: Constipation Last Admin: 10/12/24 20:56 Dose: 17.2 mg Documented By: RONDA Sodium Chloride (0.9 % Sodium Chloride Flush 3 Ml Syringe) 3 ml IVFLUSH QSHIFT RAYNE Last Admin: 10/14/24 08:23 Dose: Not Given Documented By: GRACE Non-Admin Reason: Previously Administered Labs 10/14/24 05:37 10/14/24 05:37 Labs: Laboratory Results - last 24 hr 10/14/24 05:37 MCV 92.2 MCH 31.7 MCHC 34.3 RDW 13.0 Plt Count 129 L MPV 10.6 Absolute Nucleated RBC 0.000 Nucleated RBC % (auto) 0.0 Anion Gap 13 Estim Creat Clear Calc 57.6 Estimated GFR > 60 Random Glucose 110 Calcium 9.2 D Assessment and Plan (1) Fracture of radius and ulna, open: Status: Acute (2) Closed fracture of pubic ramus: Status: Acute Plan 79-year-old female with a PMH significant for?HTN, HLD, and osteoporosis who presents to the ED with?right wrist and right hip pain after mechanical fall at home. Pt will be admitted to the hospital for treatment and further evaluation of acute open right wrist fracture and pubic fractures secondary to mechanical fall. Acute Right open distal radius and distal ulna fractures s/p distal ulna and radius ORIF 10/13 Continue empiric IV Zosyn, started 10/10/2024 for open fx IV morphine/oxycodone/ antiemetics, encouraged to use pain medications if needed Stable H&H and electrolytes, blood sugar 125 no hx of DM Splint to remain clean, dry, intact at all times Patient should follow-up in 2 weeks in ortho office Acute Pubic fractures Pelvis CT showing acute fractures of right superior pubic ramus and right sacral ala Non-weight bearing on right lower extremity, wheelchair for transfer Continue pain management/outpatient follow-up with ortho PT eval pending HTN Stable blood pressure on lisinopril 25 mg daily, but patient complaining of nasal drip since on lisinopril , therefore lisinopril substituted for losartan 50 mg with good blood pressure control HLD Continue statin Full Code DVT Prophylaxis: Lovenox Reason for continued hospitalization: PT eval, safe disposition Quality Stroke Does the patient have a stroke diagnosis?: No VTE Prior VTE?: No VTE Risk Level:: Medical - moderate - high VTE Device Contraindication: N/A - Device Ordered VTE Drug Contraindication: Treatment Not Indicated
[2024-10-14] MEDS: oxyCODONE HCl Immed Release 5 MG TABLET PO (11:48)
[2024-10-14] MEDS: Enoxaparin Sodium 40 MG/0.4 ML SYRINGE SUBCUT (11:50)
--- NOTE | 2024-10-14 16:12 | HO.WOUND ---
Wound Consult: Initial 79yr old? female admitted to [facility] [place] on 10/10/24- See progress notes and H&P for detailed history.? Wound consult placed for Right Hip and Pelvic area.? Patient agreeable to assessment and photo documentation.? Skin assessed and noted for bruising - no open wound noted - the bruising is not consistent with a DTI and does not appear to be pressure related but instead trauma related. No topical interventions needed at this time.
[2024-10-14] MEDS: Lactulose 20 GM/30 ML SOLUTION PO (16:32)
[2024-10-14] MEDS: 0.9 % Sodium Chloride Flush 3 ML SYRINGE IVFLUSH ×2 (16:32→21:20)
[2024-10-14] MEDS: Morphine Sulfate 4 MG/ML CARTRIDGE IVPUSH ×2 (16:32→21:18)
[2024-10-14] MEDS: Melatonin 3 MG TABLET 6 MG PO (21:18)
[2024-10-15 03:17] VITALS: BP 160/78; PULSE 92; RESP 18; TEMP 36.8; O2SAT 93
[2024-10-15] MEDS: Piperacillin Sodium/Tazobactam 3.375 GM in 0.9 % Sodium Chloride 50 ML IV ×4 (04:36→22:42)
[2024-10-15 07:25] VITALS: BP 156/70; PULSE 98; RESP 16; TEMP 36.4; O2SAT 92
[2024-10-15] MEDS: Docusate Sodium 100 MG CAPSULE PO (08:07)
[2024-10-15] MEDS: Multivitamin TABLET 1 TAB PO (08:07)
[2024-10-15] MEDS: Pravastatin Sodium 10 MG TABLET PO (08:07)
[2024-10-15] MEDS: Loratadine 10 MG TABLET PO (08:07)
[2024-10-15] MEDS: Losartan Potassium 50 MG TABLET PO (08:07)
[2024-10-15] MEDS: Calcium Oyster Shell Elemental 500 MG TABLET PO ×2 (08:07→20:17)
[2024-10-15] MEDS: Morphine Sulfate 4 MG/ML CARTRIDGE IVPUSH ×3 (08:08→20:17)
[2024-10-15] MEDS: 0.9 % Sodium Chloride Flush 3 ML SYRINGE IVFLUSH ×3 (08:08→20:17)
[2024-10-15] MEDS: polyethylene glycoL 3350 17 GM POWD.PACK PO (08:09)
--- NOTE | 2024-10-15 08:15 | PM.PNORT ---
Subjective Subjective Date of Service: 10/15/24 Interval history: Postop day 2 status post left distal radius distal ulna I and D/ORIF Patient resting comfortably in bed this morning Reports no pain in her wrist, does report some minor discomfort in her pelvis No acute events overnight No other acute complaints or concerns at this time Physical Exam Vital Signs: Vital Signs: Last Vital Signs Temp 97.5 F 10/15/24 07:25 Pulse 98 10/15/24 07:25 Resp 16 10/15/24 07:25 BP 156/70 H 10/15/24 07:25 Pulse Ox 92 10/15/24 07:25 O2 Del Method Room Air 10/15/24 07:25 O2 Flow Rate 2 10/14/24 04:00 BMI result Body Mass Index 25.2 Extrem: Other: Sugar-tong splint on left forearm and wrist clean, dry, intact No evidence of surrounding erythema, ecchymosis No evidence of infection Patient is able to flex and extend the digits of the left hand without difficulty Distal sensation intact Capillary refill brisk On inspection of the R leg, there is no visible deformity of the RLE No shortening or external rotation noted No ecchymosis of the RLE noted Distal sensation intact Capillary refill brisk Procedures Date of Service Date of Service: 10/15/24 Progress Note: A&P Assessment and plan (1) Closed fracture of pubic ramus: Status: Acute (2) Fracture of radius and ulna, open: Status: Acute (3) Fracture of sacrum: Status: Acute Plan 1. Open distal radius and distal ulna fractures Date of injury 10/10/2024 Continue IV antibiotics per Medicine Patient appears to be recovering well postoperatively Patient was educated about the typical recovery course Splint to remain clean, dry, intact at all times Patient should follow-up in 2 weeks in our office, appointment requested 2. Right sacral ala and superior pubic ramus fractures Date of injury 10/10/2024 Nonweightbearing on right lower extremity, should be in wheelchair for transfers Continue pain management Follow-up with orthopedics upon discharge Continue with all recommendations per Medicine Time Spent With Patient Time: Total time managing care of this patient today ____ minutes. Quality Stroke Does the patient have a stroke diagnosis?: No VTE Prior VTE?: No VTE Risk Level:: Medical - moderate - high VTE Device Contraindication: N/A - Device Ordered VTE Drug Contraindication: Treatment Not Indicated
--- NOTE | 2024-10-15 10:32 | HO.PM.IMPN ---
Subjective Subjective Date of Service: 10/15/24 Interval History: s/p postop day2 right distal and ulna ORIF. Pain well controlled Review of Systems All other system reviewed and are negative. Physical Exam Vital Signs: Vital Signs: Last Vital Signs Temp 97.5 F 10/15/24 07:25 Pulse 98 10/15/24 07:25 Resp 16 10/15/24 07:25 BP 156/70 H 10/15/24 07:25 Pulse Ox 92 10/15/24 07:25 O2 Del Method Room Air 10/15/24 07:25 O2 Flow Rate 2 10/14/24 04:00 BMI result Body Mass Index 25.2 Const: Other: General resting comfortably in no acute distress. Neck no JVD. CVS regular rate rhythm, Respiratory lungs clear to auscultation, no respiratory distress Gastrointestinal abdomen soft, non tender, bowel sounds audible Extremities no edema. Right arm in sling Neuro non focal Skin no rash. Objective Data Active Medications Acetaminophen (Acetaminophen 325 Mg Tablet) 650 mg PO Q6H PRN PRN Reason: Pain, Mild 1-3,fever,headache Last Admin: 10/14/24 05:18 Dose: 650 mg Documented By: VINCENZO Comments: per pt request Calcium Carbonate (Calcium Carbonate 750 Mg Tab.Chew) 750 mg PO Q4H PRN PRN Reason: Heartburn Calcium Carbonate (Calcium Oyster Shell Elemental 500 Mg Tablet) 500 mg PO BID [facility] Last Admin: 10/15/24 08:07 Dose: 500 mg Documented By: YUDITH Docusate Sodium (Docusate Sodium 100 Mg Capsule) 100 mg PO DAILY [facility] Last Admin: 10/15/24 08:07 Dose: 100 mg Documented By: YUDITH Enoxaparin Sodium (Enoxaparin Sodium 40 Mg/0.4 Ml Syringe) 40 mg SUBCUT Q24H [facility] Last Admin: 10/14/24 11:50 Dose: 40 mg Documented By: GRACE Guaifenesin/Dextromethorphan (Guaifenesin Dm 600/30 1 Tab Tab.Er.12h) 1 tab PO Q12H PRN PRN Reason: Cough Piperacillin Sod/Tazobactam (Sod 3.375 gm/ Sodium Chloride) 50 mls @ 100 mls/hr IV Q6H [facility] Last Infusion: 10/15/24 05:06 Dose: Infused Documented By: RONDA Labetalol HCl (Labetalol Hcl 100 Mg/20 Ml Vial) 5 mg IVPUSH Q6H PRN PRN Reason: SBP >180 Lactulose (Lactulose 20 Gm/30 Ml Solution) 20 gm PO DAILY PRN PRN Reason: Constipation Last Admin: 10/14/24 16:32 Dose: 20 gm Documented By: GRACE Loratadine (Loratadine 10 Mg Tablet) 10 mg PO DAILY [facility] Last Admin: 10/15/24 08:07 Dose: 10 mg Documented By: YUDITH Losartan Potassium (Losartan Potassium 50 Mg Tablet) 50 mg PO DAILY [facility]; Protocol Last Admin: 10/15/24 08:07 Dose: 50 mg Documented By: YUDITH Magnesium Hydroxide (Milk Of Magnesia 30 Ml Oral.Susp) 30 ml PO DAILY PRN PRN Reason: Constipation Melatonin (Melatonin 3 Mg Tablet) 6 mg PO BEDTIME PRN PRN Reason: Insomnia Last Admin: 10/14/24 21:18 Dose: 6 mg Documented By: RONDA Comments: per pt request early tonight Morphine Sulfate (Morphine Sulfate 4 Mg/Ml Cartridge) 4 mg IVPUSH Q4H PRN; Protocol PRN Reason: Pain, Severe (Pain Scale 7-10) Last Admin: 10/15/24 08:08 Dose: 4 mg Documented By: YUDITH Multivitamins/Vitamin C (Multivitamin Tablet) 1 tab PO DAILY [facility] Last Admin: 10/15/24 08:07 Dose: 1 tab Documented By: YUDITH Ondansetron HCl (Ondansetron Hcl 4 Mg/2 Ml Vial) 4 mg IVPUSH Q8H PRN PRN Reason: Nausea and Vomiting Oxycodone HCl (Oxycodone Hcl Immed Release 5 Mg Tablet) 5 mg PO Q6H PRN PRN Reason: Pain, Moderate(Pain Scale 4-6) Last Admin: 10/14/24 11:48 Dose: 5 mg Documented By: GRACE Polyethylene Glycol (Polyethylene Glycol 3350 17 Gm Powd.Pack) 17 gm PO DAILY [facility] Last Admin: 10/15/24 08:09 Dose: 17 gm Documented By: YUDITH Pravastatin Sodium (Pravastatin Sodium 10 Mg Tablet) 10 mg PO DAILY [facility] Last Admin: 10/15/24 08:07 Dose: 10 mg Documented By: YUDITH Senna (Sennosides 8.6 Mg Tablet) 17.2 mg PO BEDTIME PRN PRN Reason: Constipation Last Admin: 10/12/24 20:56 Dose: 17.2 mg Documented By: RONDA Sodium Chloride (0.9 % Sodium Chloride Flush 3 Ml Syringe) 3 ml IVFLUSH QSHIFT [facility] Last Admin: 10/15/24 08:08 Dose: 3 ml Documented By: YUDITH Labs 10/14/24 05:37 10/14/24 05:37 Assessment and Plan (1) Closed fracture of pubic ramus: Status: Acute (2) Fracture of radius and ulna, open: Status: Acute Plan 79-year-old female with a PMH significant for?HTN, HLD, and osteoporosis who presents to the ED with?right wrist and right hip pain after mechanical fall at home. Pt will be admitted to the hospital for treatment and further evaluation of acute open right wrist fracture and pubic fractures secondary to mechanical fall. Acute Right open distal radius and distal ulna fractures s/p distal ulna and radius ORIF 10/13 Continue empiric IV Zosyn, started 10/10/2024 for open fx IV morphine/oxycodone/ antiemetics, encouraged to use pain medications if needed Stable H&H and electrolytes, blood sugar WNL no hx of DM Splint to remain clean, dry, intact at all times Patient should follow-up in 2 weeks in ortho office Acute Pubic fractures Pelvis CT showing acute fractures of right superior pubic ramus and right sacral ala Non-weight bearing on right lower extremity, wheelchair for transfer Continue pain management/outpatient follow-up with ortho PT recommends STR HTN Stable blood pressure on lisinopril 25 mg daily, but patient complaining of nasal drip since on lisinopril , therefore lisinopril substituted for losartan 50 mg with good blood pressure control HLD Continue statin Full Code DVT Prophylaxis: Lovenox Reason for continued hospitalization: Safe disposition. Awaiting bed placement>STR Quality Stroke Does the patient have a stroke diagnosis?: No VTE Prior VTE?: No VTE Risk Level:: Medical - moderate - high VTE Device Contraindication: N/A - Device Ordered VTE Drug Contraindication: Treatment Not Indicated
[2024-10-15] MEDS: Enoxaparin Sodium 40 MG/0.4 ML SYRINGE SUBCUT (11:26)
[2024-10-15 11:59] VITALS: BP 129/63; PULSE 96; RESP 15; TEMP 36.6; O2SAT 93
[2024-10-15 15:13] VITALS: BP 158/74; PULSE 95; RESP 18; TEMP 36.8; O2SAT 95
--- NOTE | 2024-10-15 15:37 | MHC.CM.PN ---
PT ACCEPTED [facility] THEY ARE GOING FOR AUTH PT AND DGTER AWARE PT IS READY FOR DC
[2024-10-15 19:28] VITALS: BP 151/76; PULSE 84; RESP 18; TEMP 37.2; O2SAT 95
[2024-10-15] MEDS: Melatonin 3 MG TABLET 6 MG PO (22:41)
[2024-10-15 23:06] VITALS: BP 127/71; PULSE 87; RESP 18; TEMP 36.4; O2SAT 94
[2024-10-16 02:50] VITALS: BP 137/74; PULSE 85; RESP 20; TEMP 36.6; O2SAT 94
[2024-10-16] MEDS: Piperacillin Sodium/Tazobactam 3.375 GM in 0.9 % Sodium Chloride 50 ML IV ×2 (05:15→12:12)
[2024-10-16 07:48] VITALS: BP 130/70; PULSE 88; RESP 18; TEMP 36.4; O2SAT 94
[2024-10-16] MEDS: polyethylene glycoL 3350 17 GM POWD.PACK PO (08:55)
[2024-10-16] MEDS: Calcium Oyster Shell Elemental 500 MG TABLET PO (08:56)
[2024-10-16] MEDS: Multivitamin TABLET 1 TAB PO (08:56)
[2024-10-16] MEDS: Docusate Sodium 100 MG CAPSULE PO (08:56)
[2024-10-16] MEDS: Pravastatin Sodium 10 MG TABLET PO (08:56)
[2024-10-16 08:57] VITALS: BP 130/70; PULSE 88; O2SAT 94
[2024-10-16] MEDS: Loratadine 10 MG TABLET PO (08:58)
[2024-10-16 08:59] VITALS: BP 165/72
[2024-10-16] MEDS: Losartan Potassium 50 MG TABLET PO (08:59)
[2024-10-16] MEDS: 0.9 % Sodium Chloride Flush 3 ML SYRINGE IVFLUSH (09:18)
--- NOTE | 2024-10-16 10:20 | P.PNIM_ITS ---
Subjective Subjective Date of Service: 10/16/24 Interval History: States slept well. Pain well controlled Review of Systems All other system reviewed and are negative. Review of Systems: Yes all other systems are reviewed and are negative Physical Exam 2 Vital Signs: Vital Signs: Last Vital Signs Temp 97.6 F 10/16/24 07:48 Pulse 88 10/16/24 08:57 Resp 18 10/16/24 07:48 BP 165/72 H 10/16/24 08:59 Pulse Ox 94 10/16/24 08:57 O2 Del Method Nasal Cannula 10/16/24 07:48 O2 Flow Rate 2 10/16/24 07:48 BMI result Body Mass Index 25.2 Const: Other: General resting comfortably in no acute distress. Neck no JVD. CVS regular rate rhythm, Respiratory lungs clear to auscultation, no respiratory distress Gastrointestinal abdomen soft, non tender, bowel sounds audible Extremities no edema. Right arm in sling Neuro non focal Skin no rash Objective Data Active Medications Acetaminophen (Acetaminophen 325 Mg Tablet) 650 mg PO Q6H PRN PRN Reason: Pain, Mild 1-3,fever,headache Last Admin: 10/14/24 05:18 Dose: 650 mg Documented By: VINCENZO Comments: per pt request Calcium Carbonate (Calcium Carbonate 750 Mg Tab.Chew) 750 mg PO Q4H PRN PRN Reason: Heartburn Calcium Carbonate (Calcium Oyster Shell Elemental 500 Mg Tablet) 500 mg PO BID [facility] Last Admin: 10/16/24 08:56 Dose: 500 mg Documented By: LOUISA Docusate Sodium (Docusate Sodium 100 Mg Capsule) 100 mg PO DAILY [facility] Last Admin: 10/16/24 08:56 Dose: 100 mg Documented By: LOUISA Enoxaparin Sodium (Enoxaparin Sodium 40 Mg/0.4 Ml Syringe) 40 mg SUBCUT Q24H [facility] Last Admin: 10/15/24 11:26 Dose: 40 mg Documented By: YUDITH Guaifenesin/Dextromethorphan (Guaifenesin Dm 600/30 1 Tab Tab.Er.12h) 1 tab PO Q12H PRN PRN Reason: Cough Piperacillin Sod/Tazobactam (Sod 3.375 gm/ Sodium Chloride) 50 mls @ 100 mls/hr IV Q6H [facility] Last Infusion: 10/16/24 05:45 Dose: Infused Documented By: RONDA Labetalol HCl (Labetalol Hcl 100 Mg/20 Ml Vial) 5 mg IVPUSH Q6H PRN PRN Reason: SBP >180 Lactulose (Lactulose 20 Gm/30 Ml Solution) 20 gm PO DAILY PRN PRN Reason: Constipation Last Admin: 10/14/24 16:32 Dose: 20 gm Documented By: GRACE Loratadine (Loratadine 10 Mg Tablet) 10 mg PO DAILY [facility] Last Admin: 10/16/24 08:58 Dose: 10 mg Documented By: LOUISA Losartan Potassium (Losartan Potassium 50 Mg Tablet) 50 mg PO DAILY [facility]; Protocol Last Admin: 10/16/24 08:59 Dose: 50 mg Documented By: LOUISA Magnesium Hydroxide (Milk Of Magnesia 30 Ml Oral.Susp) 30 ml PO DAILY PRN PRN Reason: Constipation Melatonin (Melatonin 3 Mg Tablet) 6 mg PO BEDTIME PRN PRN Reason: Insomnia Last Admin: 10/15/24 22:41 Dose: 6 mg Documented By: RONDA Morphine Sulfate (Morphine Sulfate 4 Mg/Ml Cartridge) 4 mg IVPUSH Q4H PRN; Protocol PRN Reason: Pain, Severe (Pain Scale 7-10) Multivitamins/Vitamin C (Multivitamin Tablet) 1 tab PO DAILY [facility] Last Admin: 10/16/24 08:56 Dose: 1 tab Documented By: LOUISA Ondansetron HCl (Ondansetron Hcl 4 Mg/2 Ml Vial) 4 mg IVPUSH Q8H PRN PRN Reason: Nausea and Vomiting Polyethylene Glycol (Polyethylene Glycol 3350 17 Gm Powd.Pack) 17 gm PO DAILY [facility] Last Admin: 10/16/24 08:55 Dose: 17 gm Documented By: LOUISA Pravastatin Sodium (Pravastatin Sodium 10 Mg Tablet) 10 mg PO DAILY [facility] Last Admin: 10/16/24 08:56 Dose: 10 mg Documented By: LOUISA Senna (Sennosides 8.6 Mg Tablet) 17.2 mg PO BEDTIME PRN PRN Reason: Constipation Last Admin: 10/12/24 20:56 Dose: 17.2 mg Documented By: RONDA Sodium Chloride (0.9 % Sodium Chloride Flush 3 Ml Syringe) [address] [facility] Last Admin: 10/16/24 09:18 Dose: 3 ml Documented By: LOUISA Labs 10/14/24 05:37 10/14/24 05:37 Assessment and Plan (1) Closed fracture of pubic ramus: Status: Acute (2) Fracture of radius and ulna, open: Status: Acute Plan 79-year-old female with a PMH significant for?HTN, HLD, and osteoporosis who presents to the ED with?right wrist and right hip pain after mechanical fall at home. Pt will be admitted to the hospital for treatment and further evaluation of acute open right wrist fracture and pubic fractures secondary to mechanical fall. Acute Right open distal radius and distal ulna fractures s/p distal ulna and radius ORIF 10/13 Completed course of empiric IV abx (zosyn) for open fx IV morphine/oxycodone/ antiemetics, encouraged to use pain medications if needed Stable H&H and electrolytes, blood sugar WNL no hx of DM Splint to remain clean, dry, intact at all times Patient should follow-up in 2 weeks in ortho office Acute Pubic fractures Pelvis CT showing acute fractures of right superior pubic ramus and right sacral ala Non-weight bearing on right lower extremity, wheelchair for transfer Continue pain management/outpatient follow-up with ortho PT recommends STR HTN Stable blood pressure on lisinopril 25 mg daily, but patient complaining of nasal drip since on lisinopril , therefore lisinopril substituted for losartan 50 mg with good blood pressure control HLD Continue statin Full Code DVT Prophylaxis: Lovenox Reason for continued hospitalization: Safe disposition. Awaiting bed placement>STR Quality Stroke Does the patient have a stroke diagnosis?: No VTE Prior VTE?: No VTE Risk Level:: Medical - moderate - high VTE Device Contraindication: N/A - Device Ordered VTE Drug Contraindication: Treatment Not Indicated
[2024-10-16] MEDS: Morphine Sulfate 4 MG/ML CARTRIDGE IVPUSH (11:00)
[2024-10-16 12:00] VITALS: BP 145/62; PULSE 88; RESP 16; TEMP 36.5; O2SAT 95
[2024-10-16] MEDS: Enoxaparin Sodium 40 MG/0.4 ML SYRINGE SUBCUT (12:15)
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
--- NOTE | 2024-10-16 12:40 | MHC.CM.PN ---
[facility] HAS OBTAINED INSURANCE AUTHORIZATION FOR THIS PTS STR CM SPOKE TO PTS DAUGHTER, BEAN [phone], WHO IS AWARE PT WILL DC AROUND 1530 HOURS SHE SAYS SHE WILL MEET PT AT 1700 HOURS AT THE [facility]AB PT AWARE OF DC TIME AND DAUGHTERS PLAN TO MEET HER THERE TRANSPORT BOOKED WITH [facility]TW[facility] ANDERSON FOR 1530 HOURS
== END 2024-10-16 14:52 | disposition skilled nursing facility (03) | DRG 959 ==
LOC: HO.ED 21:17 → HO.EDOVER 22:18 → HO.S3 10-11 11:55
PROVIDERS: Orthopaedic Surgery; Physician Assistant Medical; Admitting Provider Student in an Organized Health Care Education/Training Program; Emergency Provider Emergency Medicine; PCP Internal Medicine; Visit Provider Hospitalist
PROC: 0PSH04Z Reposition Right Radius with Internal Fixation Device, Open Approach (ICD-10-PCS; principal; 2024-10-13 14:50)
DX: S52.351B Displaced comminuted fracture of shaft of radius, right arm, initial encounter for open fracture type I or II (principal); S32.10XA Unspecified fracture of sacrum, initial encounter for closed fracture; S32.511A Fracture of superior rim of right pubis, initial encounter for closed fracture; S52.601B Unspecified fracture of lower end of right ulna, initial encounter for open fracture type I or II; I10 Essential (primary) hypertension; E78.5 Hyperlipidemia, unspecified; G89.18 Other acute postprocedural pain; W19.XXXA Unspecified fall, initial encounter; Z87.891 Personal history of nicotine dependence; Z79.02 Long term (current) use of antithrombotics/antiplatelets; Z79.899 Other long term (current) drug therapy
CPT/HCPCS: 36415; 70450; 72125; 73100; 73110; 73502; 74176; 80048; 80053; 83735; 85025; 85027; 85610; 86850; 86900; 86901; 97116; 97162; 97530; 99285; C1713; J0131; J0665; J0690; J0737; J1100; J1650; J2003; J2004; J2060; J2250; J2270; J2371; J2405; J2543; J2704; J3010

== ENCOUNTER → 2024-10-10 14:44 | Outpatient (BNV) | payer MEDICARE, SELFPAY | PROVIDERS: Emergency Provider Emergency Medicine; PCP Internal Medicine; Visit Provider Radiology Diagnostic Radiology | DX: S52.591D Other fractures of lower end of right radius, subsequent encounter for closed fracture with routine healing (principal); S52.601D Unspecified fracture of lower end of right ulna, subsequent encounter for closed fracture with routine healing; M25.551 Pain in right hip; R51.9 Headache, unspecified; Z03.89 Encounter for observation for other suspected diseases and conditions ruled out; S32.511A Fracture of superior rim of right pubis, initial encounter for closed fracture; S32.111A Minimally displaced Zone I fracture of sacrum, initial encounter for closed fracture; S52.591A Other fractures of lower end of right radius, initial encounter for closed fracture; S52.691A Other fracture of lower end of right ulna, initial encounter for closed fracture | CPT/HCPCS: 70450; 72125; 73100; 73110; 73502; 74176 ==

== ENCOUNTER → 2024-10-10 15:54 | Outpatient (BNV) | payer MEDICARE, SELFPAY | PROVIDERS: Emergency Provider Emergency Medicine; PCP Internal Medicine | DX: S32.599A Other specified fracture of unspecified pubis, initial encounter for closed fracture (principal); S52.90 Unspecified fracture of unspecified forearm; S52.209B Unspecified fracture of shaft of unspecified ulna, initial encounter for open fracture type I or II; S32.10XA Unspecified fracture of sacrum, initial encounter for closed fracture | CPT/HCPCS: 99024; 99232 ==

== ENCOUNTER → 2024-10-10 22:02 | Outpatient (BNV) | payer MEDICARE, SELFPAY | PROVIDERS: Admitting Provider Student in an Organized Health Care Education/Training Program; Emergency Provider Emergency Medicine; PCP Internal Medicine; Visit Provider Hospitalist | DX: S32.599A Other specified fracture of unspecified pubis, initial encounter for closed fracture (principal); S52.90 Unspecified fracture of unspecified forearm; S52.209B Unspecified fracture of shaft of unspecified ulna, initial encounter for open fracture type I or II | CPT/HCPCS: 99223; 99232; 99233 ==

== ENCOUNTER 2024-10-23 17:12 | Emergency (ER) | payer MEDICARE, SELFPAY ==
--- NOTE | ~2024-10-23 | US_ITS ---
CLINICAL HISTORY: ? dvt Venous duplex ultrasound right lower extremity Comparison: None Findings: Acute appearing occlusive thrombus involves imaged right superficial femoral vein. Remainder of the imaged deep veins are compressible with normal Doppler color flow and spectral tracings. Imaged superficial soft tissues are unremarkable. IMPRESSION: 1. Positive for right lower extremity deep vein thrombosis, with acute appearing occlusive thrombus of the right superficial femoral vein. 2. Remainder of the imaged deep venous structures are patent. This document has been electronically signed by: Chito Watson MD on 10/23/2024 19:38:41
[2024-10-23 17:25] VITALS: BP 148/84; PULSE 81; RESP 20; TEMP 36.6; O2SAT 96; BMI 24.9
[2024-10-23 17:37] LABS: MANUAL DIFF FLAG NO
[2024-10-23 17:49] LABS: Basophils Percent Auto 0.4 % (0-2); Eosinophils Absolute Auto 0.2 X10*3/uL (0.0-0.4); Hematocrit 34.6 % (37.0-47.0); Hemoglobin 11.8 g/dl (12.0-16.0); Imm Gran Abs Auto 0.04 X10*3/uL (0.00-0.03); Imm Gran Pct Auto 0.5 % (0.0-0.4); Lymphocytes Absolute Auto 1.7 X10*3/uL (1.2-4.9); Lymphocytes Percent Auto 22.7 % (20-40); Mean Corpuscular HGB Conc 34.1 g/dl (31.0-35.0); Mean Corpuscular Hemoglobin 31.3 pg (27.0-33.0); Mean Corpuscular Volume 91.8 fL (80.0-98.0); Mean Platelet Volume 10.5 fL (9.4-12.3); Monocytes Absolute Auto 0.6 X10*3/uL (0.1-1.2); Monocytes Percent Auto 8.3 % (2-11); Neutrophils Absolute Auto 4.8 x10*3/uL (2.0-8.3); Neutrophils Percent Auto 65.1 % (45-73); Platelet Count 247 X10*3/uL (160-400); Red Blood Count 3.77 X10*6/uL (4.20-5.50); Red Cell Distribution Width 13.3 % (11.0-16.0); White Blood Count 7.4 X10*3/uL (4.8-10.8)
[2024-10-23 17:53] LABS: Prothrombin Time 11.1 SEC (10.9-12.4)
[2024-10-23 18:00] LABS: Alanine Aminotransferase 101 U/L (0-31); Albumin Level 3.4 g/dL (3.5-5.0); Alkaline Phosphatase 148 U/L (39-117); Anion Gap 15 (12-20); Aspartate Amino Transferase 95 U/L (5-31); Bilirubin Total 0.4 mg/dL (0.0-1.0); Blood Urea Nitrogen 27 mg/dL (9-16); Calcium 8.7 mg/dL (8.4-10.2); Carbon Dioxide 23 mmol/L (22-29); Chloride 103 mmol/L (96-108); Creatinine Clr Calc Pharmacy 50.3; Estimated Glomerular Filt Rate > 60; Glucose Random 90 mg/dL (60-115); Magnesium 2.4 mg/dL (1.6-2.6); Sodium 136 mmol/L (135-145); Total Protein 7.4 g/dL (6.5-8.0)
--- NOTE | 2024-10-23 18:29 | ED.GENADULT ---
HPI - General Adult General Chief complaint: Extremity Injury, Lower Stated complaint: R leg DVT on scan from [facility] Time Seen by Provider: 10/23/24 17:18 Source: patient and EMS Mode of arrival: EMS Limitations: no limitations History of Present Illness ED Provider: LORNE Pacheco HPI narrative: This is an 79-year-old female hx of HTN, HLD who is currently at [facility] for right hip fracture and right wrist fracture who presents to the emergency department with concerns that she has a DVT in her right lower extremity. Her leg was noted to be swollen and slightly uncomfortable, [facility] they obtained an ultrasound and told patient that she had a DVT however she does not have images or report. Patient is not on anticoagulation. She is on baby aspirin however. Denies chest pain, shortness breath, numbness, tingling, headache, vision changes, dizziness and weakness. Related Data Home Medications ?Medication ?Instructions ?Recorded ?Confirmed acetaminophen 500 mg tablet 1,000 mg PO TID PRN Pain 11/29/23 10/10/24 (Acetaminophen Extra Strength) cetirizine 10 mg tablet 10 mg PO DAILY 11/29/23 10/10/24 dextromethorphan-guaifenesin 30 1 tab PO Q12H PRN Cough 11/29/23 10/10/24 mg-600 mg tablet extended [id number] hr docusate sodium 100 mg tablet 100 mg PO DAILY 11/29/23 10/10/24 multivitamin 1 tab PO DAILY 11/29/23 10/10/24 pravastatin 10 mg tablet 10 mg PO DAILY 11/29/23 10/10/24 aspirin 81 mg tablet,delayed 81 mg PO BEDTIME 10/10/24 10/10/24 release biotin 1 mg tablet 1 mg PO DAILY 10/10/24 10/10/24 calcium carbonate (Calcium 600) 600 mg PO BID 10/10/24 10/10/24 Previous Rx's ?Medication ?Instructions ?Recorded losartan 50 mg tablet 50 mg PO DAILY #30 tabs 10/16/24 oxycodone 5 mg tablet 5 mg PO Q6H PRN pain #14 tabs 10/16/24 apixaban 5 mg (74 tabs) tablets in 5 mg PO BID #74 ea 10/23/24 a dose pack ([employer] DVT-PE Treat 30D Start) Allergies Allergy/AdvReac Type Severity Reaction Status Date / Time azithromycin AdvReac Stomach Verified 10/23/24 17:26 Upset doxycycline AdvReac Gastrointestinal Verified 10/23/24 17:26 Upset sulfamethoxazole AdvReac Stomach Verified 10/23/24 17:26 [From Bactrim] Upset trimethoprim [From Bactrim] AdvReac Stomach Verified 10/23/24 17:26 Upset Review of Systems Review of Systems: Yes all other systems are reviewed and are negative PMFSH Past Medical History Attestation statement: The following information was validated with the patient. Source: old records reviewed and nursing notes reviewed Medical History Enlarged aorta Osteoporosis Allergies Elevated cholesterol PONV (postoperative nausea and vomiting) HTN (hypertension) Surgical History Hx of colonoscopy Hx of left cataract extraction Hx of hysterectomy Hx of tonsillectomy Social History Social History Household Members: None Housing: House Do you presently have visiting nurse or other home services: No Unable to assess alcohol history related to: Unknown Alcohol intake: never Patient Tobacco Use Status: Former Tobacco user Smoked in Last 30 Days: No Second Hand Smoke Exposure: No Use of substances other than those prescribed or required for medical reasons: No Advance Directives: Yes Advance Directives on File: Yes Advance Directives Date on File: 11/29/23 Do you have a plan to hurt others: No Plan service: No Current occupational status: retired Current occupation: right hand dominant Physical Exam ED Vital Signs: Vital Signs - 24 hr 10/23/24 17:25 10/23/24 19:02 Temperature 98 F 98.1 F Pulse Rate 81 82 Respiratory Rate 20 19 Blood Pressure 148/84 H 139/82 Pulse Oximetry 96 Oxygen Delivery Method Room Air BMI result Body Mass Index 24.9 vss Appearance: Alert.? Oriented X3.? No acute distress.? Head: Normocephalic, atraumatic, no step-offs or deformities Eyes: Pupils equal, round and reactive to light.? ENT: Pharynx normal.? Neck: Normal inspection.? Neck supple.? CVS: Normal heart rate and rhythm.? Pulses normal.? Respiratory: No respiratory distress.? Breath sounds normal.? Abdomen: Soft and nontender.? Skin: Skin warm and dry.? Normal skin color.? Normal skin turgor.? Extremities: No calf ttp. 5/5 strength to bilateral upper and lower extremities + RUE in splint + 2+ DP,AT,PT pulses equal and b/l. 1+ non pitting edema to RLE, No edema noted to LLE Back: No midline tenderness, no C-spine tenderness, full range of motion, no CVA tenderness bilaterally Neuro: Oriented X 3.? No motor deficit.? No sensory deficit. CN 2-12 intact Course Reevaluation(s) Reevaluation #1: CBC unremarkable. Chemistry with no acute findings needing intervention. Transaminases slightly elevated however no abdominal tenderness on palpation. Will advise for patient to have outpatient right upper quadrant ultrasound. No need for emergent ultrasound at this time. Coags unremarkable. Positive DVT study in the right lower extremity deep vein thrombosis with acute appearing occlusive thrombus of the right superficial femoral vein. Remainder of the image deep venous structures are patent. Plan is to start Eliquis. I did discuss this with patient and family and went in to a depth of risk factors associated with anticoagulants such as GI bleeding or bleeding and general. Advised her that if she notices any bleeding she should report to the emergency department immediately. Educated patient on diagnosis and treatment plan, answered all question, patient verbalizes understanding. At this time patient will be discharged home, advised to return with new or worsening symptoms. Educated on worrisome signs and symptoms and when to return. At this time I feel comfortable discharge home. Time: 19:43 Medications Administered Discontinued Medications Generic Name Dose Route Start Last Admin Trade Name Stephonq PRN Reason Stop Dose Admin Apixaban 10 mg 10/23/24 19:44 10/23/24 20:00 Apixaban 5 Mg Tablet PO 10/23/24 19:45 10 mg ONCE ONE Administration Medical Decision Making Medical Decision Making MDM Narrative: 79-year-old female presents with concerns of right lower extremity DVT coming from rehab. No chest pain or shortness of breath. Physical exam mild edema to right lower extremity. Palpable pulses bilaterally. Patient well-appearing. Vital signs stable. History and physical exam concerning for DVT of right lower extremity. Unlikely arterial occlusion. No signs of acute threat to limb. She does currently have a hip fracture and a right wrist fracture and has been less mobile than usual making DVT most likely. Unlikely metabolic derangements. Peripheral vascular disease also a possibility. Plan labs, reimage right lower extremity. No need for arterial scan as patient has palpable pulses in I do not suspect arterial scan Differential Diagnosis Differential Diagnoses: The differential diagnosis associated with the presentation includes (History and physical exam concerning for DVT of right lower extremity. Unlikely arterial occlusion. No signs of acute threat to limb. She does currently have a hip fracture and a right wrist fracture and has been less mobile than usual making DVT most likely. Unlikely metabolic derangements. Pe) Admission/Observation Consideration of admission/observation: Escalation of care including admission/observation considered Lab Data MDM Lab Attestation statement: I reviewed the patient's lab results. 10/23/24 17:32 10/23/24 17:32 Labs: Lab Results 10/23/24 Range/Units 17:32 WBC 7.4 (4.8-10.8) X10*3/uL RBC 3.77 L (4.20-5.50) X10*6/uL Hgb 11.8 L (12.0-16.0) g/dl Hct 34.6 L (37.0-47.0) % MCV 91.8 (80.0-98.0) fL MCH 31.3 (27.0-33.0) pg MCHC 34.1 (31.0-35.0) g/dl RDW 13.3 (11.0-16.0) % Plt Count 247 D (160-400) X10*3/uL MPV 10.5 (9.4-12.3) fL Immature Gran % (Auto) 0.5 H (0.0-0.4) % Neut % (Auto) 65.1 (45-73) % Lymph % (Auto) 22.7 (20-40) % [place] % (Auto) 8.3 (2-11) % Eos % (Auto) 3.0 (0-4) % Baso % (Auto) 0.4 (0-2) % Lymph # (Auto) 1.7 (1.2-4.9) X10*3/uL [place] # (Auto) 0.6 (0.1-1.2) X10*3/uL Eos # (Auto) 0.2 (0.0-0.4) X10*3/uL Baso # (Auto) 0.0 (0.0-0.2) X10*3/uL Abs Immat Gran (auto) 0.04 H (0.00-0.03) X10*3/uL Absolute Neuts (auto) 4.8 (2.0-8.3) x10*3/uL Absolute Nucleated RBC 0.000 (0.0-0.012) X10*3/uL Nucleated RBC % (auto) 0.0 (0.0-0.2) /100WBC PT 11.1 (10.9-12.4) SEC INR 1.0 (0.9-1.1) Hold Blue Top SEE NOTE Sodium 136 (135-145) mmol/L Potassium 5.0 D (3.3-5.1) mmol/L Chloride 103 (96-108) mmol/L Carbon Dioxide 23 (22-29) mmol/L Anion Gap 15 (12-20) BUN 27 H (9-16) mg/dL Creatinine 0.80 (0.5-1.4) mg/dL Estim Creat Clear Calc 50.3 Estimated GFR > 60 Random Glucose 90 (60-115) mg/dL Calcium 8.7 (8.4-10.2) mg/dL Magnesium 2.4 (1.6-2.6) mg/dL Total Bilirubin 0.4 (0.0-1.0) mg/dL AST 95 H (5-31) U/L ALT 101 H (0-31) U/L Alkaline Phosphatase 148 H (39-117) U/L Total Protein 7.4 (6.5-8.0) g/dL Albumin 3.4 L (3.5-5.0) g/dL Independent Interpretation I performed an independent interpretation of an: Ultrasound Radiology Impression Discussion of test interpretation with radiology: I have reviewed the radiologist's reading. External Record Review External record reviewed: Inpatient record, Office record, Outpatient record, Prior outpatient labs, Prior outpatient radiology, Primary care record and Outside ED record Chronic Conditions Patient?s care impacted by: Other (see hpi ) Critical Care Time Critical Care Time Critical Care Time: Yes Total Critical Care Time: 35 Attestation: I attest to this time spent taking care of the patient, obtaining history, physical, reviewing labs, imaging, treatment of patients condition +/- specialist/hospitalist consult +/- procedure Discharge Plan Discharge Clinical Impression: Fracture of distal end of left ulna, Pelvic fracture, Acute deep vein thrombosis (DVT) of right lower extremity Patient Disposition: Xfer Other Transfer Details: Transfer to [facility] Instructions: Pelvic Fracture (ED), Deep Vein Thrombosis (ED) Additional Instructions: Take your medications as prescribed. If you were prescribed antibiotics today, it is important that you take your medication to their entirety, do not skip any doses, do not finish them early. Follow-up with your primary care provider this week. Return to the emergency department with new or worsening symptoms. Such as fevers, chills, chest pain, shortness of breath, nausea, vomiting, dizziness, headache, vision changes, lethargy In case of emergency call 911 Eliquis has been sent to your pharmacy. This is to treat a blood thinner. When you were taking a blood thinner it is important to note that you were at an increased risk of bleeding. If you have any falls or trauma it is important that you seek medical attention immediately. You will take Eliquis 10 mg twice daily for 7 days followed by 5 mg twice daily. IMPRESSION: 1. Positive for right lower extremity deep vein thrombosis, with acute appearing occlusive thrombus of the right superficial femoral vein. 2. Remainder of the imaged deep venous structures are patent. Prescriptions: New Eliquis DVT-PE Treat 30D Start 5 mg (74 tabs) tablets,dose pack 5 mg PO BID Qty: 74 0RF Rx Instructions: 10 mg twice daily for 7 days followed by 5 mg twice daily. No Action multivitamin Tablet 1 tab PO DAILY cetirizine 10 mg Tablet 10 mg PO DAILY acetaminophen [Acetaminophen Extra Strength] 500 mg Tablet 1,000 mg PO TID PRN (Reason: Pain) pravastatin 10 mg tablet 10 mg PO DAILY dextromethorphan-guaifenesin 30-600 mg Tablet Extended Release 12 Hr 1 tab PO Q12H PRN (Reason: Cough) docusate sodium 100 mg Tablet 100 mg PO DAILY aspirin 81 mg Tablet,Delayed Release (Dr/Ec) 81 mg PO BEDTIME calcium carbonate [Calcium 600] 600 mg calcium (1,500 mg) Tablet 600 mg PO BID biotin 1 mg Tablet 1 mg PO DAILY losartan 50 mg Tablet 50 mg PO DAILY Qty: 30 0RF Protocol: Hold for SBP< HOLD for SBP < : 90 oxycodone 5 mg tablet 5 mg PO Q6H PRN (Reason: pain) Qty: 14 0RF Rx Instructions: Partial Fill upon patient request. Referrals: Carlita Villegas MD [Primary Care Provider] - 2 days Stand Alone Forms: Work/School Release Print Language: Qatari
[2024-10-23 19:02] VITALS: BP 139/82; PULSE 82; RESP 19; TEMP 36.7
[2024-10-23] MEDS: Apixaban 5 MG TABLET 10 MG PO (20:00)
--- NOTE | 2024-10-23 20:07 | PC.NURSE ---
report given to Anika ANN at [facility]. ems to be booked.
[2024-10-23 20:32] VITALS: BP 139/82; PULSE 82; RESP 19; TEMP 36.7; O2SAT 98
== END 2024-10-23 20:32 | disposition other institution (70) ==
PROVIDERS: Physician Assistant; Emergency Provider Emergency Medicine; PCP Internal Medicine
DX: I82.411 Acute embolism and thrombosis of right femoral vein (principal); S32.9XXA Fracture of unspecified parts of lumbosacral spine and pelvis, initial encounter for closed fracture; S52.602A Unspecified fracture of lower end of left ulna, initial encounter for closed fracture; X58.XXXA Exposure to other specified factors, initial encounter; M79.661 Pain in right lower leg; Y93.9 Activity, unspecified; Y92.9 Unspecified place or not applicable; Y99.9 Unspecified external cause status
CPT/HCPCS: 36415; 80053; 83735; 85025; 85610; 93971; 99284

== ENCOUNTER → 2024-10-23 17:29 | Outpatient (BNV) | payer MEDICARE, SELFPAY | PROVIDERS: Emergency Provider Emergency Medicine; PCP Internal Medicine; Visit Provider Radiology Neuroradiology | DX: I82.411 Acute embolism and thrombosis of right femoral vein (principal) | CPT/HCPCS: 93971 ==

== ENCOUNTER 2024-10-31 07:53 | Outpatient (REF) | payer MEDICARE, SELFPAY ==
--- NOTE | ~2024-10-31 | XR_ITS ---
EXAMINATION: XR WRIST 3 OR MORE VIEWS RIGHT HISTORY: M25.531 - Pain in right wrist COMPARISON: Comparison is made with the prior examination dated 10/10/2024. FINDINGS: Three views of the right wrist are submitted. Osseous mineralization is normal. The patient is status post internal fixation of the previously noted comminuted fracture of the distal radius with a sideplate and multiple orthopedic screws. There is also been internal fixation of the previously seen fracture of the distal ulnar metaphysis with a K wire. The fracture lines remain visible. The joint spaces are preserved. The soft tissues are unremarkable. XR/XR wrist RT min 3V IMPRESSION: Internal fixation of fractures of the distal radial and ulna metaphyses as described. Electronically signed by: Iain Yen MD 10/31/2024 12:50 PM EDT
== END 2024-10-31 07:54 | disposition home or self-care (01) ==
LOC: HO.HOSX 07:53
DX: M25.531 Pain in right wrist (principal); S52.91XB Unspecified fracture of right forearm, initial encounter for open fracture type I or II; S52.201B Unspecified fracture of shaft of right ulna, initial encounter for open fracture type I or II
CPT/HCPCS: 73110; 99212

== ENCOUNTER → 2024-10-31 10:03 | Outpatient (BNV) | payer MEDICARE, SELFPAY | PROVIDERS: Visit Provider Radiology Diagnostic Radiology | DX: S52.591A Other fractures of lower end of right radius, initial encounter for closed fracture (principal); S52.601A Unspecified fracture of lower end of right ulna, initial encounter for closed fracture | CPT/HCPCS: 73110 ==

== ENCOUNTER 2024-10-31 11:13 | Outpatient (AMB) | payer MEDICARE, SELFPAY ==
--- NOTE | 2024-10-31 11:37 | MHC.OFFVIS ---
Intake Visit Reasons: PO-I&D &ORIF of RT distal radius and ulna-10/13/24 Intake Note: Dayna is an 79 year old female who presents today for her first post operative appointment about 3 weeks s/p Right Distal Radius and Ulnar Shaft ORIF and I & D 10/13/2024. On 10/10/24 she was trying to get to her door when the wind blew her over and she fell landing on her right side. Patient is doing well okay she was stating that her splint was loose and it was rubbing on her pin. She is also s/p Right Hip Fracture. 10/23/[address] [facility] for Positive RLE DVT - being treated with Eliquis. Allergies azithromycin Adverse Reaction (Verified 10/31/24 11:42) Stomach Upset doxycycline Adverse Reaction (Verified 10/31/24 11:42) Gastrointestinal Upset sulfamethoxazole [From Bactrim] Adverse Reaction (Verified 10/31/24 11:42) Stomach Upset trimethoprim [From Bactrim] Adverse Reaction (Verified 10/31/24 11:42) Stomach Upset HPI HPI PO-I&D &ORIF of RT distal radius and ulna-10/13/24: Details: Dayna is an 79 year old female who presents today for her first post operative appointment about 3 weeks s/p Right Distal Radius and Ulnar Shaft ORIF and I & D 10/13/2024. On 10/10/24 she was trying to get to her door when the wind blew her over and she fell landing on her right side. Patient is doing well okay she was stating that her splint was loose and it was rubbing on her pin. She is also s/p Right pelvis Fracture. 10/23/24 [address] seen at [facility] for Positive RLE DVT - being treated with Eliquis. [facility] Medical History Enlarged aorta Osteoporosis Allergies Elevated cholesterol PONV (postoperative nausea and vomiting) HTN (hypertension) Surgical History Hx of colonoscopy Hx of left cataract extraction Hx of hysterectomy Hx of tonsillectomy Social History Household Members: None Housing: House Do you presently have visiting nurse or other home services: No Unable to assess alcohol history related to: Unknown Alcohol intake: never Patient Tobacco Use Status: Former Tobacco user Second Hand Smoke Exposure: No Advance Directives Date on File: 11/29/23 service: No Current occupational status: retired Current occupation: right hand dominant Review of Systems Const All systems reviewed & are unremarkable except as noted in HPI and below Physical Exam Extrem Other: Patient is alert, oriented, and in no acute distress. Neuro: Normal sensation of the tips of all digits of the right hand at this time Vascular: Cap refill brisk Pain: Mild tenderness to palpation about fracture sites on the right wrist ROM: Patient is able to make closed fist and extend all digits right fully Skin: Well approximated well healing incision site noted on the volar right wrist Well approximated and well healing incision in laceration site on the ulnar right wrist Sutures in place Pin site clean, dry, intact, no evidence of infection General: No ecchymosis, erythema, or evidence of infection. Psych: Appears grossly normal Affect normal Attitude cooperative Results Reviewed Results Reviewed: X-rays obtained in the office today and independently reviewed by me, Luke López PA-C, demonstrate surgically reduced fractures of the right distal radius and distal ulna with all orthopedic hardware in place and in satisfactory clinical alignment. Assessment & Plan Assessment & Plan (1) Fracture of radius and ulna, open: Code(s): S52.90XB - Unspecified fracture of unspecified forearm, initial encounter for open fracture type I or II; S52.209B - Unspecified fracture of shaft of unspecified ulna, initial encounter for open fracture type I or II Category: Medical Plan 1. Open right distal rupture 2. Open right distal ulna fracture Status post ORIF DOS 10/13/2024 Patient appears to be recovering well postoperatively Patient was educated about the typical recovery course At this time, patient was placed into a [place] cast Patient is educated on proper cast care and precautions Follow-up in 2 weeks with repeat x-rays, cast removal at that time, sooner with acute concerns Orders: Orders XR wrist RT min 3V Today M25.531 - Pain in right wrist Coding Level of Care Code Global (58724) Diagnoses Fracture of radius and ulna, open S52.90XB; S52.209B
== END 2024-10-31 12:40 | disposition home or self-care (01) ==
LOC: HO.HOS 11:13
PROVIDERS: PCP Internal Medicine
DX: S52.90 Unspecified fracture of unspecified forearm (principal); S52.209B Unspecified fracture of shaft of unspecified ulna, initial encounter for open fracture type I or II
CPT/HCPCS: 99024

== ENCOUNTER 2024-11-03 08:50 | Outpatient (REF) | payer MEDICARE, SELFPAY ==
--- OUTSIDE RECORDS SUMMARY | 2024-11-04 09:22 | XMS_ITS | Encounter Summary ---
Author Organization [facility] Address [address] [place] [address] Care Team Providers Care Cider Maker Name Role Phone Carlita Villegas MD Primary Care Provider [phone] Encounter Details Date Type Department Care Team (Late Contact Info) Description 10/27/2024 Lab Requisition [facility] - [facility] Lab [address] [place] [address] Giovanni Coffey MD [address] [place] [address], [phone] Essential (primary) hypertension; Hyperlipidemia, unspecified Social History Tobacco Use Types Packs/Day Years [...] on file documented as of this encounter Plan of Treatment Upcoming Encounters Date Type Department Care Team (Late st Contact Info) Description 06/17/2025 10:00 AM EST Office Visit Endocrinology - [place] [address] [place] [address] Gisell Villegas PA [address] [place] [address] 08/26/2025 10:00 AM EST Office Visit Vascular Surgery - [place] [address] [place] [address] Priya Lopez MD [address] [place] [address] documented as of this encounter Procedures Procedure Name Priority Date/Time Associated Diagnosis Comments COMPLETE BLOOD COUNT Routine 10/27/2024 6:25 AM EDT Essential (primary) hypertension Hyperlipidemia, unspecified COMPREHENSIVE METABOLIC PANEL Routine 10/27/2024 6:25 AM EDT Essential (primary) hypertension Hyperlipidemia, unspecified documented in this encounter Results * (ABNORMAL) Comprehensive metabolic panel (10/27/2024 6:25 AM EDT) Sodium 137 133 - 145 mmol/L LAB CHEMISTRY METHOD 10/27/2024 12:56 PM [facility] Potassium 4.9 3.5 - 5.5 mmol/L LAB CHEMISTRY METHOD 10/27/2024 12:56 PM [facility] Comment:Hemolysis present Chloride 104 96 - 110 mmol/L LAB CHEMISTRY METHOD 10/27/2024 12:56 PM [facility] CO2 25 21 - 32 mmol/L LAB CHEMISTRY METHOD 10/27/2024 12:56 PM [facility] Anion Gap 8 3 - 11 LAB CHEMISTRY METHOD 10/27/2024 12:56 PM [facility] Glucose 80 70 - 100 mg/dL LAB CHEMISTRY METHOD 10/27/2024 12:56 PM [facility] BUN 18 5 - 25 mg/dL LAB CHEMISTRY METHOD 10/27/2024 12:56 PM [facility] Creatinine 0.69 0.50 - 1.10 mg/dL LAB CHEMISTRY METHOD 10/27/2024 12:56 PM [facility] eGFR 88 >=60 mL/min/1. 73m2 LAB CHEMISTRY METHOD 10/27/2024 12:56 PM EDT [facility] Comment:Calculation based on the??Chronic Kidney Disease Epidemiology Collaboration (CKD-EPI) equation refit??without adjustment for race. BUN/Creatinine Ratio 26.1 LAB CHEMISTRY METHOD 10/27/2024 12:56 PM EDT [facility] Calcium 8.9 8.5 - 10.5 mg/dL LAB CHEMISTRY METHOD 10/27/2024 12:56 PM T [facility] AST (SGOT) 67(H) 10 - 42 unit/L LAB CHEMISTRY METHOD 10/27/2024 12:56 PM [facility] Comment:Hemolysis present ALT (SGPT) 73(H) 10 - 60 unit/L LAB CHEMISTRY METHOD 10/27/2024 12:56 PM [facility] Alkaline Phosphatase 188(H) 42 - 121 unit/L LAB CHEMISTRY METHOD 10/27/2024 12:56 PM [facility] Total Protein 6.9 6.0 - 8.0 g/dL LAB CHEMISTRY METHOD 10/27/2024 12:56 PM [facility] Albumin 3.1(L) 3.2 - 5.0 g/dL LAB CHEMISTRY METHOD 10/27/2024 12:56 PM [facility] Total Bilirubin 0.5 0.0 - 1.4 mg/dL LAB CHEMISTRY METHOD 10/27/2024 12:56 PM T [facility] Blood Venous blood specimen / Unknown Venipuncture / Unknown 10/27/2024 6:25 AM EDT 10/27/2024 10:32 AM EDT us Giovanni Coffey MD LAB BLOOD ORDERABLES Final Resul t [facility] [address] [place] [address], * Complete blood count (10/27/2024 6:25 AM EDT) [facility] WBC 5.0 4.8 - 10.8 K/mcL LAB HEMETOLOGY METHOD 10/27/2024 11:30 AM [facility] RBC 3.80 3.80 - 4.80 M/mcL LAB HEMETOLOGY METHOD 10/27/2024 11:30 AM [facility] Hemoglobin 12.0 11.5 - 16.0 g/dL LAB HEMETOLOGY METHOD 10/27/2024 11:30 AM [facility] Hematocrit 36.9 35.0 - 47.0 % LAB HEMETOLOGY METHOD 10/27/2024 11:30 AM [facility] MCV 97.9 79.0 - 98.0 FL LAB HEMETOLOGY METHOD 10/27/2024 11:30 AM [facility] MCH 31.8 27.0 - 32.0 pcg LAB HEMETOLOGY METHOD 10/27/2024 11:30 AM [facility] MCHC 32.5 32.0 - 37.0 g/dL LAB HEMETOLOGY METHOD 10/27/2024 11:30 AM [facility] RDW 13.3 11.0 - 15.0 % LAB HEMETOLOGY METHOD 10/27/2024 11:30 AM [facility] Platelets 293 130 - 400 K/mcL LAB HEMETOLOGY METHOD 10/27/2024 11:30 AM [facility] MPV 11.0 7.0 - 11.0 FL LAB HEMETOLOGY METHOD 10/27/2024 11:30 AM [facility] NRBC 0.0 <1.0 % LAB HEMETOLOGY METHOD 10/27/2024 11:30 AM [facility] NRBC Absolute 0.00 <0.10 K/mcL LAB HEMETOLOGY METHOD 10/27/2024 11:30 AM EDT [facility] Blood Venous blood specimen / Unknown Venipuncture / Unknown 10/27/2024 6:25 AM EDT 10/27/2024 10:32 AM EDT us Giovanni Coffey MD LAB BLOOD ORDERABLES Final Resul t [facility] [address] [place] [address], documented in this encounter Visit Diagnoses Diagnosis Essential (primary) hypertension Unspecified essential hypertension Hyperlipidemia, unspecified documented in this encounter Care Teams Cider Maker Relationship Specialty Start Date End Date Carlita Villegas MD [address] [place] [id number] PCP - General 08/25/22 documented as of this encounter
--- OUTSIDE RECORDS SUMMARY | 2024-11-04 09:22 | XMS_ITS | Encounter Summary ---
Author Organization [facility] Address [address] [place] [address] Care Team Providers Care [employer] Teacher Name Role Phone Carlita Villegas MD Primary Care Provider [phone] Encounter Details Date Type Department Care Team (Late st Contact Info) Description 10/30/2024 Lab Requisition [facility] - Main Lab [address] [facility] [place] [address] Giovanni Coffey MD [address] [place] [address], [phone] Essential (primary) hypertension; Hyperlipidemia, unspecified; Unspecified osteoarthritis, unspecified site; Encounter for other orthopedic aftercare Social History Tobacco Use Types Packs/Day Years [...] 10:00 AM EST Office Visit Endocrinology - [place] [address] [place], [place] [phone] Gisell Villegas PA [address] [place], [place] 08/26/2025 10:00 AM EST Office Visit Vascular Surgery - [place] [address] [place] [address] Priya Lopez MD [address] [place] [address] documented as of this encounter Procedures Procedure Name Priority Date/Time Associated Diagnosis Comments COMPLETE BLOOD COUNT Routine 10/31/2024 8:53 AM EDT Essential (primary) hypertension Hyperlipidemia, unspecified Unspecified osteoarthritis, unspecified site Encounter for other orthopedic aftercare C-REACTIVE PROTEIN Routine 10/31/2024 8: 53 AM EDT Essential (primary) hypertension Hyperlipidemia, unspecified Unspecified osteoarthritis, unspecified site Encounter for other orthopedic aftercare COMPREHENSIVE METABOLIC PANEL Routine 10/31/2024 8:53 AM EDT Essential (primary) hypertension Hyperlipidemia, unspecified Unspecified osteoarthritis, unspecified site Encounter for other orthopedic aftercare documented in this encounter Results * (ABNORMAL) Comprehensive metabolic panel (10/31/2024 8:53 AM EDT) Sodium 138 133 - 145 mmol/L LAB CHEMISTRY METHOD 10/31/2024 12:31 PM [facility] Potassium 4.3 3.5 - 5.5 mmol/L LAB CHEMISTRY METHOD 10/31/2024 12:31 PM [facility] Chloride 104 96 - 110 mmol/L LAB CHEMISTRY METHOD 10/31/2024 12:31 PM [facility] CO2 30 21 - 32 mmol/L LAB CHEMISTRY METHOD 10/31/2024 12:31 PM [facility] Anion Gap 4 3 - 11 LAB CHEMISTRY METHOD 10/31/2024 12:31 PM [facility] Glucose 122(H) 70 - 100 mg/dL LAB CHEMISTRY METHOD 10/31/2024 12:31 PM [facility] BUN 17 5 - 25 mg/dL LAB CHEMISTRY METHOD 10/31/2024 12:31 PM [facility] Creatinine 0.75 0.50 - 1.10 mg/dL LAB CHEMISTRY METHOD 10/31/2024 12:31 PM [facility] eGFR 81 >=60 mL/min/1. 73m2 LAB CHEMISTRY METHOD 10/31/2024 12:31 PM [facility] Comment:Calculation based on the??Chronic Kidney Disease Epidemiology Collaboration (CKD-EPI) equation refit??without adjustment for race. BUN/Creatinine Ratio 22.7 LAB CHEMISTRY METHOD 10/31/2024 12:31 PM [facility] Calcium 9.2 8.5 - 10.5 mg/dL LAB CHEMISTRY METHOD 10/31/2024 12:31 PM [facility] AST (SGOT) 43(H) 10 - 42 unit/L LAB CHEMISTRY METHOD 10/31/2024 12:31 PM [facility] ALT (SGPT) 60 10 - 60 unit/L LAB CHEMISTRY METHOD 10/31/2024 12:31 PM [facility] Alkaline Phosphatase 193(H) 42 - 121 unit/L LAB CHEMISTRY METHOD 10/31/2024 12:31 PM [facility] Total Protein 6.8 6.0 - 8.0 g/dL LAB CHEMISTRY METHOD 10/31/2024 12:31 PM [facility] Albumin 3.3 3.2 - 5.0 g/dL LAB CHEMISTRY METHOD 10/31/2024 12:31 PM [facility] Total Bilirubin 0.5 0.0 - 1.4 mg/dL LAB CHEMISTRY METHOD 10/31/2024 12:31 PM [facility] Blood Venous blood specimen / Unknown Venipuncture / Unknown 10/31/2024 8:53 AM EDT 10/31/2024 10:21 AM EDT us Giovanni Coffey MD LAB BLOOD ORDERABLES Final Resul t [facility] [address] [place] [address], * (ABNORMAL) Complete blood count (10/31/2024 8:53 AM EDT) WBC 5.0 4.8 - 10.8 K/mcL LAB HEMETOLOGY METHOD 10/31/2024 11:12 AM EDT [facility] RBC 3.70(L) 3.80 - 4.80 M/mcL LAB HEMETOLOGY METHOD [facility] Hemoglobin 11.5 11.5 - 16.0 g/dL LAB HEMETOLOGY METHOD 10/31[facility]2024 [facility] Hematocrit 35.8 35.0 - 47.0 % LAB HEMETOLOGY METHOD 10/31/2024 11[facility] MCV 97.8 79.0 - 98.0 FL LAB HEMETOLOGY METHOD 10/31/2024 11:[facility] MCH 31.4 27.0 - 32.0 pcg LAB HEMETOLOGY METHOD 10/31/2024 [facility] MCHC 32.1 32.0 - 37.0 g/dL LAB HEMETOLOGY METHOD 10/31/2024 11:12 AM EDT [facility] RDW 13.3 11.0 - 15.0 % LAB HEMETOLOGY METHOD 10/31/2024 11:12 AM EDT [facility] Platelets 283 130 - 400 K/mcL LAB HEMETOLOGY METHOD [facility]/31[facility]2024 [facility] MPV 10.4 7.0 - 11.0 FL LAB HEMETOLOGY METHOD 10/31/2024 11:12 AM EDT [facility] NRBC 0.0 <1.0 % LAB HEMETOLOGY METHOD 10/31/2024 11:12 AM EDT [facility] NRBC Absolute 0.00 <0.10 K/mcL LAB HEMETOLOGY METHOD 10/31/2024 11:12 AM EDT [facility] Blood Venous blood specimen / Unknown Venipuncture / Unknown 10/31/2024 8:53 AM EDT 10/31/2024 10:21 AM EDT Giovanni Coffey MD LAB BLOOD ORDERABLES Final Resul t Performing Organization Address [facility]/ZIP Co de Phone Number [facility] [address] [place] [address], [place] [phone] * (ABNORMAL) C-reactive protein (10/31/2024 8:53 AM EDT) C-Reactive Protein 1.02(H) <=0.50 mg/dL LAB CHEMISTRY METHOD 10/31/2024 12:33 PM EDT [facility] Blood Venous blood specimen / Unknown Venipuncture / Unknown 10/31/2024 8:53 AM EDT 10/31/2024 10:21 AM EDT Giovanni Coffey MD LAB BLOOD ORDERABLES Final Resul t Performing Organization Address City/[facility]/ZIP Co de Phone Number [facility] [address] [place] [address], [place] [phone] documented in this encounter Visit Diagnoses Diagnosis Essential (primary) hypertension Unspecified essential hypertension Hyperlipidemia, unspecified Unspecified osteoarthritis, unspecified site Encounter for other orthopedic aftercare documented in this encounter Care Teams [employer] Teacher Relationship Specialty Start Date End Date Carlita Villegas MD [address] [place] [phone] PCP - General 1/20/23 documented as of this encounter
--- OUTSIDE RECORDS SUMMARY | 2024-11-04 09:22 | XMS_ITS | Encounter Summary ---
Author Organization [facility] Address [address] [place] [address] Care Team Providers Care Supervisor Gluing Name Role Phone Carlita Villegas MD Primary Care Provider [phone] Encounter Details Date Type Department Care Team (Late Contact Info) Description 10/17/2024 Lab Requisition [facility] - Main Lab [address] [facility] [place] [address] Giovanni Coffey MD [address] [place] [address], [phone] Essential (primary) hypertension; Hyperlipidemia, unspecified Social [...] 10:00 AM EST Office Visit Endocrinology - [place] [address] [place] [address] Gisell Villegas PA [address] [place] [address] 08/26/2025 10:00 AM EST Office Visit Vascular Surgery - [place] [address] [place] [address] Priya Lopez MD [address] [place] [address] documented as of this encounter Procedures Procedure Name Priority Date/Time Associated Diagnosis Comments LIPID PANEL WITH REFLEX TO DIRECT LDL Routine 10/17/2024 8:47 AM EDT Essential (primary) hypertension Hyperlipidemia, unspecified COMPLETE BLOOD COUNT Routine 10/17/2024 8:47 AM EDT Essential (primary) hypertension Hyperlipidemia, unspecified C-REACTIVE PROTEIN Routine 10/17/2024 8: 47 AM EDT Essential (primary) hypertension Hyperlipidemia, unspecified COMPREHENSIVE METABOLIC PANEL Routine 10/17/2024 8:47 AM EDT Essential (primary) hypertension Hyperlipidemia, unspecified documented in this encounter Results * (ABNORMAL) C-reactive protein (10/17/2024 8:47 AM EDT) C-Reactive Protein 5.68(H) <=0.50 mg/dL LAB CHEMISTRY METHOD 10/17/2024 11:41 AM EDT [facility] Blood Venous blood specimen / Unknown Venipuncture / Unknown 10/17/2024 8:47 AM EDT 10/17/2024 10:31 AM EDT us Giovanni Coffey MD LAB BLOOD ORDERABLES Final Resul t [facility] [address] [place] [address], * Lipid panel with reflex to direct LDL (10/17/2024 8:47 AM EDT) Cholesterol 173 0 - 200 mg/dL LAB CHEMISTRY METHOD 10/17/2024 11:42 AM EDT [facility] Triglycerides 101 0 - 150 mg/dL LAB CHEMISTRY METHOD 10/17/2024 11:42 AM EDT [facility] HDL 55 >=40 mg/dL LAB CHEMISTRY METHOD 10/17/2024 11:42 AM EDT [facility] LDL Calculated 98 0 - 100 mg/dL LAB CHEMISTRY METHOD 10/17/2024 11:42 AM EDT [facility] VLDL Cholesterol Waldemar 20.2 mg/dL LAB CHEMISTRY METHOD 10/17/2024 11:42 AM T [facility] Non HDL Chol. (LDL+VLDL) 118 <145 mg/dL LAB CHEMISTRY METHOD 10/17/2024 11:42 AM [facility] Chol/HDL Ratio 3.1 0.0 - 4.4 LAB CHEMISTRY METHOD 10/17/2024 11:42 AM [facility] Blood Venous blood specimen / Unknown Venipuncture / Unknown 10/17/2024 8:47 AM EDT 10/17/2024 10:31 AM EDT us Giovanni Coffey MD LAB BLOOD ORDERABLES Final Resul t [facility] [address] [place] [address], [place] [phone] * (ABNORMAL) Comprehensive metabolic panel (10/17/2024 8:47 AM EDT) Sodium 138 133 - 145 mmol/L LAB CHEMISTRY METHOD 10/17/2024 11:41 AM T [facility] Potassium 3.8 3.5 - 5.5 mmol/L LAB CHEMISTRY METHOD 10/17/2024 11:41 AM [facility] Chloride 105 96 - 110 mmol/L LAB CHEMISTRY METHOD 10/17/2024 11:41 AM [facility] CO2 28 21 - 32 mmol/L LAB CHEMISTRY METHOD [facility]24 [facility] Anion Gap 5 3 - 11 LAB CHEMISTRY METHOD 10/17/2024 11:41 AM [facility] Glucose 128(H) 70 - 100 mg/dL LAB CHEMISTRY METHOD 10/17/2024 11:41 AM [facility] BUN 16 5 - 25 mg/dL LAB CHEMISTRY METHOD 10/17/2024 11:41 AM [facility] Creatinine 0.65 0.50 - 1.10 mg/dL LAB CHEMISTRY METHOD 10/17/2024 11:41 AM [facility] eGFR 89 >=60 mL/min/1. 73m2 LAB CHEMISTRY METHOD 10/17/2024 11:41 AM [facility] Comment:Calculation based on the??Chronic Kidney Disease Epidemiology Collaboration (CKD-EPI) equation refit??without adjustment for race. BUN/Creatinine Ratio 24.6 LAB CHEMISTRY METHOD 10/17/2024 11:41 AM [facility] Calcium 8.8 8.5 - 10.5 mg/dL LAB CHEMISTRY METHOD 10/17/2024 11:41 AM [facility] AST (SGOT) 65(H) 10 - 42 unit/L LAB CHEMISTRY METHOD 10/17/2024 11:41 AM [facility] ALT (SGPT) 47 10 - 60 unit/L LAB CHEMISTRY METHOD 10/17/2024 11:41 AM [facility] Alkaline Phosphatase 60 42 - 121 unit/L LAB CHEMISTRY METHOD 10/17/2024 11:41 AM [facility] Total Protein 6.2 6.0 - 8.0 g/dL LAB CHEMISTRY METHOD 10/17/2024 11:41 AM [facility] Albumin 2.8(L) 3.2 - 5.0 g/dL LAB CHEMISTRY METHOD 10/17/2024 11:41 AM [facility] Total Bilirubin 0.7 0.0 - 1.4 mg/dL LAB CHEMISTRY METHOD 10/17/2024 11:41 AM EDT [facility] Blood Venous blood specimen / Unknown Venipuncture / Unknown 10/17/2024 8:47 AM EDT 10/17/2024 10:31 AM EDT us Giovanni Coffey MD LAB BLOOD ORDERABLES Final Resul t [facility] [address] [place] [address], [place] [phone] * (ABNORMAL) Complete blood count (10/17/2024 8:47 AM EDT) WBC 5.1 4.8 - 10.8 K/mcL LAB HEMETOLOGY METHOD 10/17/2024 11:13 AM [facility] RBC 3.70(L) 3.80 - 4.80 M/mcL LAB HEMETOLOGY METHOD 10/17[facility]2024 [facility] Hemoglobin 11.8 11.5 - 16.0 g/dL LAB HEMETOLOGY METHOD 10/17/2024 11:13 AM [facility] Hematocrit 35.7 35.0 - 47.0 % LAB HEMETOLOGY METHOD 10/17/2024 11:13 AM [facility] MCV 95.5 79.0 - 98.0 FL LAB HEMETOLOGY METHOD 10/17/2024 11:13 [facility] MCH 31.6 27.0 - 32.0 pcg LAB HEMETOLOGY METHOD 10/17/2024 11:13 AM [facility] MCHC 33.1 32.0 - 37.0 g/dL LAB HEMETOLOGY METHOD 10/17/2024 11:13 AM [facility] RDW 13.1 11.0 - 15.0 % LAB HEMETOLOGY METHOD 10/17/2024 11:13 AM EDT [facility] Platelets 184 130 - 400 K/mcL LAB HEMETOLOGY METHOD 10/17/2024 11:13 AM EDT [facility] MPV 11.4(H) 7.0 - 11.0 FL LAB HEMETOLOGY METHOD 10/17/2024 11:13 AM EDT [facility] NRBC 0.0 <1.0 % LAB HEMETOLOGY METHOD 10/17/2024 11:13 AM EDT [facility] NRBC Absolute 0.00 <0.10 K/mcL LAB HEMETOLOGY METHOD 10/17/2024 11:13 AM EDT [facility] Blood Venous blood specimen / Unknown Venipuncture / Unknown 10/17/2024 8:47 AM EDT 10/17/2024 10:31 AM EDT us Giovanni Coffey MD LAB BLOOD ORDERABLES Final Resul t [facility] [address] [place] [address], documented in this encounter Visit Diagnoses Diagnosis Essential (primary) hypertension Unspecified essential hypertension Hyperlipidemia, unspecified documented in this encounter Care Teams Supervisor Gluing Relationship Specialty Start Date End Date Carlita Villegas MD [address] [place] [id number] PCP - General 08/25/22 documented as of this encounter
--- OUTSIDE RECORDS SUMMARY | 2024-11-04 09:22 | XMS_ITS | Data Portability ---
Author Organization [facility], Main Office Address [address] [place] [address] Care Team Providers Care Dealmaker Name Role Phone BRENDA GUZMAN - 2ND FLOOR OTHER MIESHA CHAN Primary Care Provider Assessment No assessment recorded. Plan of Treatment Reminders Order Date Submit Date Provider Last Modified By Organization Details Last Modified Time Details Appointments None record ed. Lab None record ed. Referral None record ed. Procedures None record ed. Surgeries None record ed. Imaging None record ed. Medication Orders None record ed. Patient TargetsNo targets recorded. Patient InstructionsNo instructions recorded. Reason for Referral None Reported. Problems Name Problem SNOMED Code Status Onset Date Resolution Date Notes Provider Name and Address Organization Details Recorded Time Hypertensiv e disorder 80197550 Active 2024 Estrellita Damico NP [address] [facility], [address], [place], [address], [facility] 5 10:05:42 Open reduction of fracture of radius Active 2024 Estrellita Damico NP [address], [address], [place], [address], [facility] 5 10:06:12 Fracture of radius 14818632 Active 2024 Estrellita Damico NP [address], [address], [place], [address], [facility] 5 10:06:50 Closed fracture of pubic ramus Active 2024 Estrellita Damico NP [address], [address], [place], [address], [facility] 5 10:07:14 Hyperlipide desiree 40509170 Active 2024 Estrellita Damico NP [address], [address], [place], [address], [facility] 5 10:07:30 At high risk for fall 7377000289606 68042 Active 2024 Estrellita Damico NP [address], [address], [place], [address], [facility] 5 10:07:56 Asthenia 74424409 Active 2024 Estrellita Damico NP [address], [address], [place], [address], [place] [facility] 5 10:08:03 Osteoporosi s 47977083 Active 2024 Estrellita Damico NP [address], [place], [address], [facility] 5 10:11:58 Problem Notes None recorded. Medical Equipment None Reported. Allergies Allergen ID Allergen Name Allergen Category Reaction Reaction Severity Criticality Documentation Date Start Date Code Code System Note Provider Name and Address Organization Details Recorded Time 26341 azithromy radha medicatio n other Not available unabletoasse 10/17/2024 54133 RxNorm upset stoma ch Not Available Not Available Not Available 00174 doxycycli ne Not available other Not available unabletoasse 10/17/2024 3640 RxNorm gi upset Not Available Not Available Not Available Medications Not known to be on any medication Vitals Date Recorded Body weight Heart rate Respiratory rate Body temperature Oxygen saturation Oxygen saturation in Arterial blood by Pulse oximetry Systolic blood pressure Diastolic blood pressure Provider Name and Address Organization Details Last Updated DateTime 5 92314.9 3 g 93 /min 18 /min 97.8 [degF] 94 % 94 % 155 mm[Hg] 78 mm[Hg] Estrellita Damico NP [address], [address], [place], [address], [facility] 5 09:31:21 Date Recorded Body weight Heart rate Respiratory rate Systolic blood pressure Diastolic blood pressure Provider Name and Address Organization Details Last Updated DateTime 10/21/2024 35161.9 7 g 70 /min 18 /min 155 mm[Hg] 78 mm[Hg] Giovanni Coffey MD [address] [facility], [address], [place], [address], [facility] 5 14:25:01 Date Recorded Heart rate Respiratory rate Body temperature Oxygen saturation Oxygen saturation in Arterial blood by Pulse oximetry Systolic blood pressure Diastolic blood pressure Provider Name and Address Organization Details Last Updated DateTime 5 68 /min 18 /min 97.5 [degF] 96 % 96 % 155 mm[Hg] 78 mm[Hg] CRISTIANE MAN NP [address] [facility] [address], [address], [place], [address], [facility] 5 13:32:24 Date Recorded Body weight Heart rate Respiratory rate Body temperature Oxygen saturation Oxygen saturation in Arterial blood by Pulse oximetry Systolic blood pressure Diastolic blood pressure Provider Name and Address Organization Details Last Updated DateTime 5 22537.9 7 g 88 /min 18 /min 97.7 [degF] 96 % 96 % 138 mm[Hg] 68 mm[Hg] Estrellita Damico NP [address] [facility], [address], [place], [address], [facility] 5 14:26:53 Date Recorded Heart rate Respiratory rate Body temperature Oxygen saturation Oxygen saturation in Arterial blood by Pulse oximetry Systolic blood pressure Diastolic blood pressure Provider Name and Address Organization Details Last Updated DateTime 5 74 /min 18 /min 98 [degF] 98 % 98 % 137 mm[Hg] 68 mm[Hg] CRISTIANE MAN NP [address], [address], [place], [address], [facility] 5 11:50:29 Social History Question Answer Notes LastModified by Organization Details LastModified Time Tobacco Smoking Status Former Smoker smoked for one yr in her 20s Estrellita Damico NP [address] [facility] [facility] [address], [place], [address], [facility] 10/17/2024 10:30:23 Do You Have An Advance Directive? No Information not available 10/17/2024 What Is Your Level Of Alcohol Consumption? Occasional Very Occ Information not available 10/17/2024 How Many Times Per Week Do You Consume Alcohol? Less Than 1 Time Per Week Information not available 10/17/2024 What Is Your Code Status? Full Code Full Code Presumed Would Like To Speak With Ibeth Information not available 10/17/2024 Where Do You Live? SingleLevelHouse Information not available 10/17/2024 Legal Guardian? No Information not available 10/17/2024 What Was The Date Of Your Most Recent Tobacco Screening? 10/17/2024 Information not available 10/17/2024 Do You Have An Out Of Hospital DNR? No Information not available 10/17/2024 Have You Ever Been Counseled For Unhealthy Alcohol Use? No Information not available 10/17/2024 What Is Your Relationship Status? Information not available 10/17/2024 How Much Tobacco Do You Smoke? No Information not available 10/17/2024 Do You Use Any Illicit Or Recreational Drugs? No Information not available 10/17/2024 Has Tobacco Cessation Counseling Been Provided? No Information not available 10/17/2024 Do You Or Have You Ever Used Any Other Forms Of Tobacco Or Nicotine? No Information not available 10/17/2024 Sex: Female Functional Status None recorded. Mental Status None recorded. Family History Nothing Reported Notes:brother: maciej barillast her 2 strokes mother: healthy father: with jaundice unsure of details Medical History No medical history recorded. Gynecological HistoryNo gynecological history recorded. Obstetrics History GPAL:G 0 P 0 0 0 0 Immunizations Vaccine Type Date Status Note Provider Nam e and Address Organization Details Recorded Time SARS-COV-2 (COVID-19) vaccine, UNSPECIFIED 4 completed Valencia Yoo [facility] 10/17/2024 14:17:30 SARS-COV-2 (COVID-19) vaccine, UNSPECIFIED 1 completed Valencia Yoo [facility] 10/17/2024 14:17:52 SARS-COV-2 (COVID-19) vaccine, UNSPECIFIED 1 completed Valencia Fredo null, [facility] 10/17/2024 14:17:59 SARS-COV-2 (COVID-19) vaccine, UNSPECIFIED 1 completed Valencia Fredo null, [facility] 10/17/2024 14:18:07 SARS-COV-2 (COVID-19) vaccine, UNSPECIFIED 2 completed Valencia Fredo null, [facility] 10/17/2024 14:18:14 Td(adult) unspecified formulation 8 completed Valencia Fredo null, [facility] 10/17/2024 14:18:32 Pneumococcal conjugate PCV 13 6 [facility] 10/17/2024 14:18:45 Pneumococcal conjugate PCV 13 2 completed [facility] 10/17/2024 14:18:53 pneumococcal polysaccharide PPV23 4 completed Valencia Fredo [facility] 10/17/2024 14:19:12 influenza, unspecified formulation 4 completed Valencia Fredo [facility] 10/17/2024 14:19:28 influenza, unspecified formulation 4 completed [facility] 10/17/2024 14:19:38 SARS-COV-2 (COVID-19) vaccine, UNSPECIFIED 1 completed [facility] 10/17/2024 14:19:51 SARS-COV-2 (COVID-19) vaccine, UNSPECIFIED 1 completed [facility] 10/17/2024 14:20:01 SARS-COV-2 (COVID-19) vaccine, UNSPECIFIED 1 completed [facility] 10/17/2024 14:20:09 SARS-COV-2 (COVID-19) vaccine, UNSPECIFIED 2 completed [facility] 10/17/2024 14:20:17 zoster, unspecified formulation 3 completed [facility] 10/17/2024 14:24:16 zoster, unspecified formulation 1 completed Valencia Yoo [facility] 10/17/2024 14:24:26 Past Encounters Encounter ID Performer Location Encounter Start Date Encounter Closed Date Diagnosis/Indication Diagnosis SNOMED-CT Code Diagnosis ICD10 Code Diagnosis Note [id number] Estrellita Damico NP [address] [place] [address] 10/17/2024 09:25:54 10/20/2024 13:52:21 Closed fracture of pubic ramus 3585561002 S32.501D CT pelvis showed right superior pubic ramus and right sacral ala.She is NWB status to right lower extremity with wheelchair transfer'p ain control as belowneeds to fu with ortho in 2 weeks Fracture of radius 24918 007 S52.90XA sp mechanical fall dx with distal ulna radius and underwendt orif 10/[address] Zamorano and received iv ampillicin keep splint c/d /i and inplaceele vate as tolerated and use sling3/14c hange tyl 1000mg po tidchange oxycodone to 5 mg po bid and q 6 hours prncontdoc usate 100mg po qdmonitor for need to increase-s tates some loose stools latelymoni tor for relief of painfu in 2 weeks with ortho Hypertensive disorder 38 447206 I10 with hx of htn with elevated bp controlled on losartan 50 mg po qd started in hospitalmo nitor vitals and for need to adjust Osteoporosis 21688647 M8 1.0 hx ofmulivita min qdcal carb bidbiotin qdmonitor Hyperlipidemia 27209187 E78.5 pravastati n 10mg po qdasa qdmonitor Insomnia 372787421 G47.0 0 pt with poor sleep overnight start melatoinin 10 mg po qhsmonitor At high risk for fall 45 87744335 96544263 Z91.89 pt with mechanical fallno assistive devicessup portive carept ot eval and treatmonit or Asthenia 55580665 R53.1 pt pt/ot eval and treatsuppo rtive caremonito r [id number] Giovanni Coffey MD [address] [address] 10/21/2024 14:23:49 10/22/2024 12:07:02 Drug-induced constipation 77762080 K59.03 add sennabowel protocolmo nitor for effect Closed fra cture of pubic ramus 7018681176 S32.501D see HPINWB till cleared by orthodiscu ssed with therapyupd ate with concernsmo nitor for pain controlf/u in place Fracture of radius 13694 007 S52.90XA s/p ORIFfollow ortho recs and update with concernsed divya improvedmo nitor for pain control Hypertensive disorder 38 008798 I10 currently onlosartan 50 mg qdmonitor need to titrate if remains elevated Hyperlipidemia 75854903 E78.5 pravastati n 10 mg po qdcontinue d Insomnia 384786560 G47.0 0 melatonin 10 mg po qhsmonitor for effect Asthenia 53851234 R53.1 therapy to followcoor dinate with ortho [id number] CRISTIANE MAN NP [address] [address] 10/22/2024 10:45:58 10/24/2024 15:39:10 Closed fracture of pubic ramus 5067510312 S32.501D see HPINWB till cleared by orthoPT OT eval and txContinue pain mgmt - comfortabl e at presentupd ate Ortho with concernsMo nitor VS, pain, CSM for change. Of note, she is not on AC at this time, only on baby ASA. Is getting OOB but mobility and activity limited due to NWB status of RUE and RLE.Plan -change ASA to 325 mg bid for nowCheck Venous US BLES, RLE more swollen than LLE. Hx of vein surgery in past LLE. If pos. DVT, change ASA to eliquis.CB C, CMP q mond. x 3 Fracture of radius 59303 007 S52.90XA s/p ORIFNWBSof t cast and sling in place - continueCo ntinue pain meds as aboveMonit or VS, CSM, pain for changesfol low ortho recs and update with concerns Drug-induc ed constipation 47177732 K59.03 Still backed up.Encoura ging use of supp or fleets to get bowels moving ( its right there )D/C senna and colace, change to senna-plus 2 tabs daily, hold for loose stool.Add miralax dailyMaint ain fluidsMoni tor closely and continue to adjust tx. Hypertensive disorder 38 118408 I10 No recent VS - now ordered dailycurre ntly onlosartan 50 mg qdmonitor need to titrate if remains elevated Hyperlipidemia 64814539 E78.5 Continue pravastati n 10 mg po qdSl. elevation in LFTs - is on APAP as wellCMP q mond. x 3 Insomnia 194149103 G47.0 0 On melatonin 10 mg po qhs - not working Wa nts to use sleep meds she uses at home, but unsure of name or ingredient s.Spoke with daughter, will bring in unopened bottle for nsg. to check ingredient s and use here if no contraindi zoilaWilola ling to try hydroxyzin e 25 mg q HS prn for now to help with relaxation and sleep.mikey tor for effect Asthenia 04042401 R53.1 therapy to followcoor dinate with ortho [id number] Estrellita Damico NP [address] [address] 10/24/2024 14:25:11 10/27/2024 15:33:43 Closed fracture of pubic ramus 7306978109 S32.501D see HPINWB to RUE and RLE till cleared by orthoPT OT eval and txcomforta ble at present with pain regimenupd ate Ortho with concerns prnMonitor VS, pain, CSM for change. 10/24 dc ASA to 325 mg bid10/24 started on eliquis 10 mg po bid x 7 days and then 5mg po bid for DVTCBC, CMP q mond. x 3 Fracture of radius 67172 007 S52.90XA s/p ORIFNWB to RUEcontSof t cast and sling in placeConti nue pain meds as aboveMonit or VS, CSM, pain for changesfol low ortho recs and update with concerns prn Hypertensive disorder 38 373313 I10 stablecurr ently onlosartan 50 mg qdmonitor need to titrate if remains elevated Asthenia 94703995 R53.1 therapy to followcoor dinate with ortho Deep venou s thrombosis of lower extremity 078159721 I82.409 10/24 RLE DVTstart eliquis 10 mg po bid x 7days, then 5mgpo bidno s/s of decreased circulatio n to RLEmonitor cms, pain, vitals, bleeding [id number] [facility] [place] [address] 10/30/2024 09:30:35 11/03/2024 11:55:25 Deep venous thrombosis of lower extremity 955109175 I82.409 10/24 RLE DVTstarted eliquis 10 mg po bid x 7days, then 5mg po bidASA stoppedmon itor cms, pain, vitals, bleedingDu e for CBC in am Closed fra cture of pubic ramus 3064964711 S32.501D see HPINWB to RUE and RLE till cleared by orthoPT OT eval and txcomforta ble at present with pain regimenupd ate Ortho with concerns prnMonitor VS, pain, CSM for change.Ort ho follow up Tuesday 10/24 d/c'd ASA due to RLE DVT, now on eliquisCBC , CMP q . x 3 Fracture of radius 95716 007 S52.90XA s/p ORIFNWB to RUEcontSof t cast and sling in placeConti nue pain meds as aboveMonit or VS, CSM, pain for changesfol low ortho recs and update with concerns prnOrtho follow up tomorrow. Hypertensive disorder 38 103909 I10 stablecurr ently onlosartan 50 mg qdmonitor need to titrate if remains elevated Asthenia 16123179 R53.1 therapy to followcoor dinate with ortho Health Concerns Section Related Observation LastModified by Organization Detai ls LastModified Time None Recorded Concern Status LastModified by Organization Details LastModified Time None Recorded Advance Directives Directive N: Payers Encounter Date Sequence Insurance Name Policy Number Policy Celestin Covered Member ID Celestin Member ID Guarantor Name 10/17/2024 1 [place] PPO) [id number] Dayna Kulik [id number] Dayna Goldberg 10/21/2024 1 [place]PO) [id number] Dayna Kulik [id number] Dayna Goldberg 10/22/2024 1 [place]PO) [id number] Dayna Kulik [id number] Dayna Goldberg 10/24/2024 1 [place]PO) [id number] Dayna Kulik [id number] Dayna Goldberg 10/30/2024 1 [place]PO) [id number] Dayna Kulik [id number] Dayna Goldberg Notes Date Note Type Note Provider Name and Address Organization Details Recorded Time 10/17/2024 text/html Pt with an initi al intake. PMH: HTN, HLD, and osteoporosis Pt is an 79 yo f with pmh above here for rehab sp mechanical fall dx with distal ulna radius and underwendt orif 10/[address] Zamorano, right superior pubic ramus and right sacral ala, and HTN. Workup consisted of pain medication and zosyn. She is discharged here on oxycodone prn and splinted. She needs to fu with ortho in [address] cervical spine resulted in multilevel cervical spondylosis c3 and c7 otherwise unremarkable.CT pelvis showed right superior pubic ramus and right sacral ala. She is NWB status to right lower extremity with wheelchair transfer and needs to fu with ortho.She was noted to be hypertensive in hosp and started on losartan 50 mg with good control. Oxycodone prn for pain. On exam, she is alert, oriented x4 and pleasant. She reports being in pain and have some loose stools lately. She also reports poor sleep due to tv on overnight. She has bruising to the right hip area and sling with splint on the right arm with positive cms. MOLST: assumed full code, wants to consult with daughterMORSE; High fall risk Estrellita Damico, JESS [address], [address], [place], [address], [facility] 10/17/2024 10:56:42 10/21/2024 text/html Patient is an 79 yo female admit from hospital presenting after mechanical fall. Imaging positive for fx distal right radius/ulna and right pubic ramus and sacral fx. Eval by ortho and underwent ORIF RUE. Now with f/u in place. Discharge summary states NWB right lower extremity until cleared by ortho with f/u in place PMH significant forhtnhldgait instability admit to facility for continued care and therapy eval and treat Giovanni Coffey MD [address], [address], [place], [address], [facility] 10/21/2024 14:43:08 10/22/2024 text/html Dayna is seen tod ay for an acute visit. She is an 79 yo female admit from hospital presenting after mechanical fall. Imaging positive for fx distal right radius/ulna and right pubic ramus and sacral fx. Eval by ortho and underwent ORIF RUE. Now with f/u in place. Discharge summary states NWB RLE and RUE until cleared by ortho with f/u in place. So far while here, Dayna has been doing well.Working with rehab, making some gains.No recent VSLabs last week acceptable, no labs for comparison. Upon exam, Dayna is up in her w/c, alert, NAD. In good spirits.Pain stable on current regime of APAP tid and oxy bid. FLORENTIN remains in soft cast, in sling. Hand bruising and swelling improving. No N/T.Appetite good, but issues with constipation despite increasing laxatives. Issues with constipation in the hospital as well. She feels that the stool is right there just needs to get it out. Supp. and enema use discussed which she is not crazy about, but may consider. She also says she is not sleeping despite using melatonin. She has chronic issues with insomnia, uses pills at home to help. Pulls out a bag of blue pills and shows me, would like to use these but isn't sure what they are. She is also complaining of some right sided low back pain - chronic - uses icy hot at home and would like to use it here. Spoke with daughter Aviva today per her request, expressing concerns of mom not sleeping. Apparently TVs are quite loud at night which is very disturbing to her sleep. Sleep meds were discussed, and she says she would like mom to continue the sleep meds she uses at home because they work. She says they are all natural. She also mentioned benadryl but I reviewed with her that that is not an optimal choice of sleep aide in the elderly due to potential side effects and is avoided. She is agreeable to trying another sleep aid besides melatonin until she can bring in an unopened bottle of her usual sleep med. PMH significant forhtnhldgait instability CRISTIANE AMN NP [address], [address], [place], [address], [facility] 10/22/2024 14:48:50 10/24/2024 text/html Dayna is a 79 yo female seen today for an acute visit in regards to her DVT. PMH: HTN, HLD, Gait instability She is seen in regards to DVT to RLE with occlusive thrombus of right superfical femoral pain. Due to risk of bleeding from recent pelvic fractures and radial fractures was sent to [facility] for evaluation. U/S done at [facility] showing similar results and started on eliquis 10 mg po bid x 7 days and then 5mg po daily thereafter. On exam, Dayna is lying in bed in NAD. She states her pain is controlled and doesn't have any concerns. Bilateral lower extremities without swelling, pain, or decreased circulation noted today. Has regular warmth and color to bilateral feet. She denies any changes in feeling. She remains with sling and splint for right arm. Will dc asp today, due to being on eliquis. of note; She is an 79 yo female admit from hospital presenting after mechanical fall. Imaging positive for fx distal right radius/ulna and right pubic ramus and sacral fx. Eval by ortho and underwent ORIF RUE. Now with f/u in place. Discharge summary states NWB RLE and RUE until cleared by ortho with f/u in place. Estrellita Damico NP [address], [address], [place], [address], [facility] 10/24/2024 14:45:29 10/30/2024 text/html Dayna is seen tod ay for an acute visit. She is an 79 yo female admit from hospital presenting after mechanical fall. Imaging positive for fx distal right radius/ulna and right pubic ramus and sacral fx. Eval by ortho and underwent ORIF RUE. Now with f/u in place. Discharge summary states NWB RLE and RUE until cleared by ortho with f/u in place. Shortly after admission, Dayna had some issues with leg swelling (R>L), constipation, and insomnia.BLE US checked, noted to have DVT in RLE with occlusive thrombus of right superfical femoral pain. Due to risk of bleeding from recent pelvic fractures and radial fractures was sent to [facility] for evaluation. U/S done at [facility] showing similar results and started on eliquis 10 mg po bid x 7 days and then 5mg po daily thereafter. Neil. well so far.Laxatives added for bowels, moving bowels better.Hydroxyzine started at HS to help with sleep and anxiety, seems to be working well, no complaints.Appetite goodPain managed.Working with rehab, making some gains.Has Ortho follow up tomorrow for wrist and sunday for pelvic fx.[facility] 10/27 stable, still with mild elevation of LFTs. Upon exam, Dayna is up in her w/c, alert, NAD. In good spirits.Denies any complaints, pain meds helping, no bowel issues, no s/s bleeding. PMH: HTN, HLD, Gait instability CRISTIANE MAN NP [address], [address], [place], [address], [facility] 10/30/2024 12:10:38 OBGyn Episode No OBEpisode recorded.
--- OUTSIDE RECORDS SUMMARY | 2024-11-04 09:22 | XMS_ITS | Data Portability ---
Author Organization LORNE [facility]aguirre [facility], [address] Address [address] [place] [address] Care Team Providers Care Medical Cost Consultant Name Role Phone DOLLY CHAN Primary Care Provider Assessment No assessment recorded. Plan of Treatment Reminders Order Date Submit Date Provider Last Modified By Organization Details Last Modified Time Details Appointments None recorded. Lab None recorded. Referral emergency medicine referral - Hypertensiv e crisis. need to rule out acute AK. [address] ([address]), [address] [place] [address], [address], 3 15:16:57 Procedures None recorded. Surgeries None recorded. Imaging None recorded. Medication Orders polymyxin B sulfate 10,000 unit-trimet hoprim 1 mg/mL eye drops 2022 023 [id number], [address] [place], [address], 3 15:02:44 Patient TargetsNo targets recorded. Patient Instructions Encounter Date Encounter Id Patient Instructions Last Modified By Organization Details Last Modified Time 08/25/2022 [id number] Apply warm, mois t compresses over closed [...] hypertensive crisis. need to rule out acute AK. Hypertensive crisis. need to rule out acute AK. Referring Physician: Enrico Galdamez, Urgent Care, Encounter Date: 08/25/2022 Problems Name Problem SNOMED Code Status Onset Date Resolution Date Notes Provider Name and Address Organization Details Recorded Time Osteoporosis 66626109 Active 2022 LORNE Watters [facility] 3 14:30:52 Hypertensive disorder 44944482 Active 2022 LORNE Watters [facility] 3 [...] Updated DateTime 3 160.02 cm 25.3 kg/m2 44040.7 1 g 96 % 96 % 65 [...] 30 mcg/0.3 mL dose 1 completed Aviva Kent null, [place] - [facility] 08/25/2022 14:30:37 zoster live 3 completed Aviva Kent null, [place] - [facility] 08/25/2022 14:30:38 Influenza, adjuvanted, trivalent, PF 8 completed Aviva Litzy null, [place] - [facility] 08/25/2022 14:30:38 Pneumococcal conjugate PCV 13 6 completed Aviva Kent null, [place] - [facility] 08/25/2022 14:30:38 Influenza, split virus, trivalent, PF 6 completed Aviva Kent null, [place] - [facility] 08/25/2022 14:30:38 Influenza, split virus, trivalent, preservative 0 completed Aviva Litzy null, [place] - [facility] 08/25/2022 14:30:38 Influenza, high-dose, trivalent, PF 9 completed Aviva Litzy null, [place] - [facility] 08/25/2022 14:30:38 Pneumococcal conjugate PCV20, polysaccharide [id number] conjugate, adjuvant, PF 2 completed Aviva Litzy null, [place] - [facility] 08/25/2022 14:30:38 zoster recombinant 1 completed Aviva Litzy null, [place] - [facility] 08/25/2022 14:30:38 pneumococcal polysaccharide PPV23 4 completed Aviva Kent null, [place] - [facility] 08/25/2022 14:30:38 Influenza, high-dose, trivalent, PF 7 completed Aviva Kent null, [place] - [facility] 08/25/2022 14:30:38 [...] SNOMED-CT Code Diagnosis ICD10 Code Diagnosis Note [id number] [address] [place] [address] 09/15/2020 10:30:46 09/15/2020 12:24:20 [id number] [address] [place] [address] 04/23/2021 09:58:30 04/23/2021 12:42:40 [id number] Enrico Galdamez, [facility] [facility] [address] [place] [address] 08/25/2022 13:36:13 08/25/2022 15:10:22 Acute conjunctivitis of right eye 1037180967 89233 H10.31 Hypertensive crisis 7068 62968 I16.9 Health Concerns Section Related Observation LastModified by Organization Detai ls LastModified Time None Recorded Concern Status LastModified by Organization Details LastModified Time None Recorded Advance Directives Directive None Recorded Payers Encounter Date Sequence Insurance Name Policy Number Policy Celestin Covered Member ID Celestin Member ID Guarantor Name 09/15/2020 1 [employer] - MEDICARE ADVANTAGE PLAN (MEDICARE REPLACEMENT HMO) [id number] Dayna Goldberg [id number] Dayna Goldberg 04/23/2021 1 [employer] - MEDICARE ADVANTAGE PLAN (MEDICARE REPLACEMENT HMO) [id number] Dayna Goldberg [id number] Dayna Goldberg 08/25/2022 1 [employer] - MEDICARE ADVANTAGE PLAN (MEDICARE REPLACEMENT HMO) [id number] Dayna Goldberg [id number] Dayna Kulik Notes Date Note Type Note Provider Name and Address Organization Details Recorded Time 08/25/2022 text/html Eye problemsRepo rted bypatient.Notes:right eye redness more then left with yellow discharge. Also patient is hypertensive TA=250/120mmhg. Enrico Galdamez NP [address] [place], [address], [place] - [facility] 08/25/2022 15:08:45 OBGyn Episode No OBEpisode recorded.
--- OUTSIDE RECORDS SUMMARY | 2024-11-04 09:22 | XMS_ITS | Continuity of Care Document ---
Author Organization [facility], [facility] Address [address] [place] [address] Care Team Providers Care Cloth Folder Hand Name Role Phone BRENDA GUZMAN - 2ND [...] Organization Details Recorded Time Hypertensiv e disorder 95487201 Active 2024 Estrellita Damico NP [address] , [address], [place], [address], [facility] 5 10:05:42 Open reduction of fracture of radius Active 2024 Estrellita Damico NP [address] , [address], [place], [address], [facility] 5 10:06:12 Fracture of radius 28073521 Active 2024 Estrellita Damico NP [address] , [address], [place], [address], [facility] 5 10:06:50 Closed fracture of pubic ramus Active 2024 Estrellita Damico NP [address], [address], [place], [address], [facility] 5 10:07:14 Hyperlipide desiree 64679594 Active 2024 Estrellita Damico NP [address], [address], [place], [address], [facility] 5 10:07:30 At high risk for fall 6970120711093 94294 Active 2024 Estrellita Damico NP [address], [address], [place], [address], [facility] 5 10:07:56 Asthenia 45084165 Active 2024 Estrellita Damico NP [address], [place], [address], [facility] 5 10:08:03 Osteoporosi s 66123247 Active 2024 Estrellita Damico NP [address] , [address], [place], [address], [facility] 5 10:11:58 Problem Notes None recorded. Medical Equipment None Reported. Allergies Allergen ID Allergen Name Allergen Category Reaction Reaction Severity Criticality Documentation Date Start Date Code Code System Note Provider Name and Address Organization Details Recorded Time 12820 azithromy radha medicatio n other Not available unabletoasse 10/17/2024 36297 RxNorm upset stoma ch Not Available Not Available Not Available 89186 doxycycli ne Not available other Not available unabletoasse 10/17/2024 3640 RxNorm gi upset Not Available Not Available Not Available Medications Not known to be on any medication Vitals Date Recorded Heart rate Respiratory rate Body temperature Oxygen saturation Oxygen saturation in Arterial blood by Pulse oximetry Systolic blood pressure Diastolic blood pressure Provider Name and Address Organization Details Last Updated DateTime 5 74 /min 18 /min 98 [degF] 98 % 98 % 137 mm[Hg] 68 mm[Hg] CRISTIANE MAN NP [address] [facility], [address], [place], [address], [facility] 5 11:50:29 Social History Question Answer Notes LastModified by Organization Details LastModified Time Tobacco Smoking Status Former Smoker smoked for one yr in her 20s Estrellita Damico NP [address] [facility], [address], [place], [address], [facility] 10/17/2024 10:30:23 Do You Have An Advance [...] None recorded. Family History Nothing Reported Notes:brother: aneursym brot her 2 strokes mother: healthy father: with jaundice unsure of details Medical History No medical history recorded. Gynecological HistoryNo gynecological history recorded. Obstetrics History GPAL:G 0 P 0 0 0 0 Immunizations Vaccine Type Date Status Note Provider Christopher victoria and Address Organization Details Recorded Time SARS-COV-2 (COVID-19) vaccine, UNSPECIFIED 4 completed Valencia martin [facility] 10/17/2024 14:17:30 SARS-COV-2 (COVID-19) vaccine, UNSPECIFIED 1 completed Valencia Fredo null, [facility] 10/17/2024 14:17:52 SARS-COV-2 (COVID-19) vaccine, UNSPECIFIED 1 completed Valencia Fredo null, [facility] 10/17/2024 14:17:59 SARS-COV-2 (COVID-19) vaccine, UNSPECIFIED 1 completed Valencia Fredo [facility], [facility] 10/17/2024 14:18:07 SARS-COV-2 (COVID-19) vaccine, UNSPECIFIED 2 completed Valencia Fredo [facility] 10/17/2024 14:18:14 Td(adult) unspecified formulation 8 completed Valencia Fredo [facility] 10/17/2024 14:18:32 Pneumococcal conjugate PCV 13 6 completed Valencia Fredo [facility] 10/17/2024 14:18:45 Pneumococcal conjugate PCV 13 2 completed Valencia Fredo [facility] 10/17/2024 14:18:53 pneumococcal polysaccharide PPV23 4 completed Valencia Fredo [facility] 10/17/2024 14:19:12 influenza, unspecified formulation 4 completed Valencia Fredo [facility] 10/17/2024 14:19:28 influenza, unspecified formulation 4 completed Valencia Fredo [facility] 10/17/2024 14:19:38 SARS-COV-2 (COVID-19) vaccine, UNSPECIFIED 1 [facility] 14:19:51 SARS-COV-2 (COVID-19) vaccine, UNSPECIFIED 1 [facility]24 14:20:01 SARS-COV-2 (COVID-19) vaccine, UNSPECIFIED 1 completed Valencia Fredo [facility] 10/17/2024 14:20:09 SARS-COV-2 (COVID-19) vaccine, UNSPECIFIED 2 completed Valencia Yoo [facility] 10/17/2024 14:20:17 zoster, unspecified formulation 3 completed Valenciaroyal Yoo [facility] 10/17/2024 14:24:16 zoster, unspecified formulation 1 completed Valencia [facility] 10/17/2024 14:24:26 Past Encounters Encounter ID Performer Location Encounter Start Date Encounter Closed Date Diagnosis/Indication Diagnosis SNOMED-CT Code Diagnosis ICD10 Code Diagnosis Note [id number] Estrellita Damico NP [address] [address] 10/17/2024 09:25:54 10/20/2024 13:52:21 Closed fracture of pubic ramus 9597848364 S32.501D CT pelvis showed right superior pubic ramus and right sacral ala.She is NWB status to right lower extremity with wheelchair transfer'p ain control as belowneeds to fu with ortho in 2 weeks Fracture of radius 48670 007 S52.90XA sp mechanical fall dx with [...] 2 weeks with ortho Hypertensive disorder 38 371195 I10 with hx of htn with elevated bp controlled on losartan 50 mg po qd started in hospitalmo nitor vitals and for need to adjust Osteoporosis 31119962 M8 1.0 hx ofmulivita min qdcal carb bidbiotin qdmonitor Hyperlipidemia 53858154 E78.5 pravastati n 10mg po qdasa qdmonitor Insomnia 847234343 G47.0 0 pt with poor sleep overnight start melatoinin 10 mg po qhsmonitor At high risk for fall 45 84378748 90459073 Z91.89 pt with mechanical fallno assistive devicessup portive carept ot eval and treatmonit or Asthenia 01515460 R53.1 pt pt/ot eval and treatsuppo rtive caremonito r [id number] Giovanni Coffey MD [address] [address] 10/21/2024 14:23:49 10/22/2024 12:07:02 Drug-induced constipation 38423780 K59.03 add sennabowel protocolmo nitor for effect Closed fra cture of pubic ramus 1614207334 S32.501D see HPINWB till cleared by orthodiscu ssed with therapyupd ate with concernsmo nitor for pain controlf/u in place Fracture of radius 27109 007 S52.90XA s/p ORIFfollow ortho recs and update with concernsed divya improvedmo nitor for pain control Hypertensive disorder 38 032271 I10 currently onlosartan 50 mg qdmonitor need to titrate if remains elevated Hyperlipidemia 91654521 E78.5 pravastati n 10 mg po qdcontinue d Insomnia 942636139 G47.0 0 melatonin 10 mg po qhsmonitor for effect Asthenia 96375669 R53.1 therapy to followcoor dinate with ortho [id number] CRISTIANE MAN NP [address] [address] 10/22/2024 10:45:58 10/24/2024 15:39:10 Closed fracture of pubic ramus 2998123068 S32.501D see HPINWB till cleared by orthoPT [...] q mond. x 3 Fracture of radius 15254 007 S52.90XA s/p ORIFNWBSof t cast and sling in place - continueCo ntinue pain meds as aboveMonit or VS, CSM, pain for changesfol low ortho recs and update with concerns Drug-induc ed constipation 41804176 K59.03 Still backed up.Encoura ging use of supp or fleets to get bowels moving ( its right there )D/C senna and colace, change to senna-plus 2 tabs daily, hold for loose stool.Add miralax dailyMaint ain fluidsMoni tor closely and continue to adjust tx. Hypertensive disorder 38 173994 I10 No recent VS - now ordered dailycurre ntly onlosartan 50 mg qdmonitor need to titrate if remains elevated Hyperlipidemia 94849457 E78.5 Continue pravastati n 10 mg po qdSl. elevation in LFTs - is on APAP as wellCMP q mond. x 3 Insomnia 272581955 G47.0 0 On melatonin 10 mg po qhs - not working Wa nts to use sleep meds she uses at home, but unsure of name or ingredient s.Spoke with daughter, will bring in unopened bottle for nsg. to check ingredient s and use here if no contraindi cationsWil ling to try hydroxyzin e 25 mg q HS prn for now to help with relaxation and sleep.mikey tor for effect Asthenia 94723371 R53.1 therapy to followcoor dinate with ortho [id number] [facility] [address] 10/24/2024 14:25:11 10/27/2024 15:33:43 Closed fracture of pubic ramus 2386418682 S32.501D see HPINWB to RUE and RLE till cleared by orthoPT OT eval and txcomforta ble at present with pain regimenupd ate Ortho with concerns prnMonitor VS, pain, CSM for change. 10/24 dc ASA to 325 mg bid10/24 started on eliquis 10 mg po bid x 7 days and then 5mg po bid for DVTCBC, CMP q mond. x 3 Fracture of radius 36509 007 S52.90XA s/p ORIFNWB to RUEcontSof t cast and sling in placeConti nue pain meds as aboveMonit or VS, CSM, pain for changesfol low ortho recs and update with concerns prn Hypertensive disorder 38 056389 I10 stablecurr ently onlosartan 50 mg qdmonitor need to titrate if remains elevated Asthenia 24845373 R53.1 therapy to followcoor dinate with ortho Deep venou s thrombosis of lower extremity 167001851 I82.409 10/24 RLE DVTstart eliquis 10 mg po bid x 7days, then 5mgpo bidno s/s of decreased circulatio n to RLEmonitor cms, pain, vitals, bleeding [id number] CRISTIANE MAN NP [address] [address] 10/30/2024 09:30:35 11/03/2024 11:55:25 Deep venous thrombosis of lower extremity 327947133 I82.409 10/24 RLE DVTstarted eliquis 10 mg po bid x 7days, then 5mg po bidASA stoppedmon itor cms, pain, vitals, bleedingDu e for CBC in am Closed fra cture of pubic ramus 1625638913 S32.501D see HPINWB to RUE and RLE till cleared by orthoPT OT eval and txcomforta ble at present with pain regimenupd ate Ortho with concerns prnMonitor VS, pain, CSM for change.Ort ho follow up Tuesday 10/24 d/c'd ASA due to RLE DVT, now on eliquisCBC , CMP q sund. x 3 Fracture of radius 98203 007 S52.90XA s/p ORIFNWB to RUEcontSof t cast and sling in placeConti nue pain meds as aboveMonit or VS, CSM, pain for changesfol low ortho recs and update with concerns prnOrtho follow up tomorrow. Hypertensive disorder 38 588695 I10 stablecurr ently onlosartan 50 mg qdmonitor need to titrate if remains elevated Asthenia 77930304 R53.1 therapy to followcoor dinate with ortho Health Concerns Section Related Observation LastModified by Organization Felecia ramos LastModified Time None Recorded Concern Status LastModified by Organization Details LastModified Time None Recorded Payers Encounter Date Sequence Insurance Name Policy Number Policy Celestin Covered Member ID Celestin Member ID Guarantor Name 10/30/2024 1 [facility]: MEDICARE PPO BLUE (MEDICARE REPLACEMENT PPO) [id number] Dayna Goldberg [id number] Dayna Goldberg Notes Date Note Type Note Provider Name and Address Organization Details Recorded Time 10/30/2024 text/html Dayna is seen tod ay [...] fractures and radial fractures was sent to [facility] ER for evaluation. U/S done at [facility] showing similar results and started on eliquis 10 mg po bid x 7 days and then 5mg po daily thereafter. Neil. well so far.Laxatives added for bowels, moving bowels better.Hydroxyzine started at HS to help with sleep and anxiety, seems to be working well, no complaints.Appetit e goodPain managed.Working with rehab, making some gains.Has Ortho follow up tomorrow for wrist and sunday for pelvic fx.VSSLabs 10/27 stable, still with mild elevation of LFTs. Upon exam, Dayna is up in her w/c, alert, NAD. In good spirits.Denies any complaints, pain meds helping, no bowel issues, no s/s bleeding. PMH: HTN, HLD, Gait instability CRISTIANE MAN, JESS [address] [facility], [address], [place], [address], [place] - [facility] 10/30/2024 12:10:38 OBGyn Episode No OBEpisode recorded.
--- OUTSIDE RECORDS SUMMARY | 2024-11-04 09:22 | XMS_ITS | Encounter Summary ---
Author Organization [facility] Address [address] [place] [address] Care Team Providers Care Apprentice Photographer Name Role Phone Carlita Villegas MD Primary Care Provider Encounter Details Date Type Department Care Team (Late st Contact Info) Description 10/23/2024 Lab Requisition [facility] - Main Lab [address] [facility] [place] [address] Giovanni Coffey MD [address] [place] [address], [address] Essential (primary) hypertension; Hyperlipidemia, unspecified; Unspecified [...] 10:00 AM EST Office Visit Endocrinology - [place] [address] [place], [place] [phone] Gisell Villegas PA [address] [place], [place] 08/26/2025 10:00 AM EST Office Visit Vascular Surgery - [place] [address] [place] [address] Priya Lopez MD [address] [place] [address] documented as of this encounter Procedures Procedure Name Priority Date/Time Associated Diagnosis Comments COMPLETE BLOOD COUNT Routine 10/24/2024 5:10 AM EDT Essential (primary) hypertension Hyperlipidemia, unspecified Unspecified osteoarthritis, unspecified site Encounter for other orthopedic aftercare C-REACTIVE PROTEIN Routine 10/24/2024 5: 10 AM EDT Essential (primary) hypertension Hyperlipidemia, unspecified Unspecified osteoarthritis, unspecified site Encounter for other orthopedic aftercare COMPREHENSIVE METABOLIC PANEL Routine 10/24/2024 5:10 AM EDT Essential (primary) hypertension Hyperlipidemia, unspecified Unspecified osteoarthritis, unspecified site Encounter for other orthopedic aftercare documented in this encounter Results * (ABNORMAL) Comprehensive metabolic panel (10/24/2024 5:10 AM EDT) Sodium 139 133 - 145 mmol/L LAB CHEMISTRY METHOD 10/24/2024 11:[address] [facility] Potassium 4.6 3.5 - 5.5 mmol/L LAB CHEMISTRY METHOD 10/24/2024 11:[address] [facility] Chloride 106 96 - 110 mmol/L LAB CHEMISTRY METHOD 10/24/2024 11:[address] [facility] CO2 28 21 - 32 mmol/L LAB CHEMISTRY METHOD 10/24/2024 11:[address] [facility] Anion Gap 5 3 - 11 LAB CHEMISTRY METHOD 10/24/2024 11:[address] [facility] Glucose 84 70 - 100 mg/dL LAB CHEMISTRY METHOD 10/24/2024 11:[address] [facility] BUN 19 5 - 25 mg/dL LAB CHEMISTRY METHOD 10/24/2024 11:[address] [facility] Creatinine 0.72 0.50 - 1.10 mg/dL LAB CHEMISTRY METHOD 10/24/2024 11:[address] [facility] eGFR 85 >=60 mL/min/1. 73m2 LAB CHEMISTRY METHOD 10/24/2024 11:[address] [facility] Comment:Calculation based on the??Chronic Kidney Disease Epidemiology Collaboration (CKD-EPI) equation refit??without adjustment for race. BUN/Creatinine Ratio 26.4 LAB CHEMISTRY METHOD 10/24/2024 11:[address] [facility] Calcium 8.6 8.5 - 10.5 mg/dL LAB CHEMISTRY METHOD 10/24/2024 11:[address] [facility] AST (SGOT) 62(H) 10 - 42 unit/L LAB CHEMISTRY METHOD 10/24/2024 11:[address] [facility] ALT (SGPT) 91(H) 10 - 60 unit/L LAB CHEMISTRY METHOD 10/24/2024 11:[address] [facility] Alkaline Phosphatase 156(H) 42 - 121 unit/L LAB CHEMISTRY METHOD 10/24/2024 11:[address] [facility] Total Protein 6.4 6.0 - 8.0 g/dL LAB CHEMISTRY METHOD 10/24/2024 11:[address] [facility] Albumin 2.9(L) 3.2 - 5.0 g/dL LAB CHEMISTRY METHOD 10/24/2024 11:[address] [facility] Total Bilirubin 0.5 0.0 - 1.4 mg/dL LAB CHEMISTRY METHOD 10/24/2024 11:[address] [facility] Blood Venous blood specimen / Unknown Venipuncture / Unknown 10/24/2024 5:10 AM EDT 10/24/2024 9:54 AM EDT us Giovanni Coffey MD LAB BLOOD ORDERABLES Final Resul t [facility] [address] [place] [address], * (ABNORMAL) Complete blood count (10/24/2024 5:10 AM EDT) WBC 5.1 4.8 - 10.8 K/mcL LAB HEMETOLOGY METHOD 10/24/2024 10:04 AM EDT [facility] RBC 3.50(L) 3.80 - 4.80 M/mcL LAB HEMETOLOGY METHOD 10/24/2024 10:04 AM EDT [facility] Hemoglobin 10.9(L) 11.5 - 16.0 g/dL LAB HEMETOLOGY METHOD 10/24/2024 10:04 AM T [facility] Hematocrit 34.2(L) 35.0 - 47.0 % LAB HEMETOLOGY [facility]24 [facility] MCV 98.6(H) 79.0 - 98.0 FL LAB HEMETOLOGY METHOD 10/24[facility]2024 [facility] MCH 31.4 27.0 - 32.0 pcg LAB HEMETOLOGY METHOD 10/24/2024 10:04 AM EDT [facility] MCHC 31.9(L) 32.0 - 37.0 g/dL LAB HEMETOLOGY METHOD 10/24/2024 10:[address] [facility] RDW 13.4 11.0 - 15.0 % LAB HEMETOLOGY METHOD 10/24/2024 10:[address] [facility] Platelets 253 130 - 400 K/mcL LAB HEMETOLOGY METHOD 10/24/2024 10:[address] [facility] MPV 10.7 7.0 - 11.0 FL LAB HEMETOLOGY METHOD 10/24/2024 10:04 AM EDT [facility] NRBC 0.0 <1.0 % LAB HEMETOLOGY METHOD 10/24/2024 10:04 AM EDT [facility] NRBC Absolute 0.00 <0.10 K/mcL LAB HEMETOLOGY METHOD 10/24/2024 10:04 AM EDT [facility] Blood Venous blood specimen / Unknown Venipuncture / Unknown 10/24/2024 5:10 AM EDT 10/24/2024 9:54 AM EDT us Giovanni Coffey MD LAB BLOOD ORDERABLES Final Resul t Performing Organization Address City/[facility]/ZIP Co de Phone Number [facility] [address] [place] [address], [place] [phone] * (ABNORMAL) C-reactive protein (10/24/2024 5:10 AM EDT) C-Reactive Protein 1.44(H) <=0.50 mg/dL LAB CHEMISTRY METHOD 10/24/2024 11:18 AM EDT [facility] Blood Venous blood specimen / Unknown Venipuncture / Unknown 10/24/2024 5:10 AM EDT 10/24/2024 9:54 AM EDT us Giovanni Coffey MD LAB BLOOD ORDERABLES Final Resul t Performing Organization Address City/[facility]/ZIP Co de Phone Number [facility] [address] [place] [address], [place] [phone] documented in this encounter Visit Diagnoses Diagnosis Essential (primary) hypertension Unspecified essential hypertension Hyperlipidemia, unspecified Unspecified osteoarthritis, unspecified site Encounter for other orthopedic aftercare documented in this encounter Care Teams Apprentice Photographer Relationship Specialty Start Date End Date Carlita Villegas MD [address] [place] [address] PCP - General 08/25/22 documented as of this encounter
--- OUTSIDE RECORDS SUMMARY | 2024-11-04 09:22 | XMS_ITS | Clinical Summary ---
Author Organization [facility] Address [address] [place] [address] Phone Care Team Providers Care Economic Developer Name Role Phone Carlita Villegas MD Primary Care Provider Allergies Active Allergy Reactions Criticality Noted Date [...] Encounters Date Type Department Care Team Description 11/01/2024 Lab Requisition [facility] [address] [facility] [employer] [place] [address] Giovanni Coffey MD Essential (primary) hypertension; Hyperlipidemia, unspecified 10/30/2024 Lab Requisition [facility] Lab [address] [place] [phone] Giovanni Coffey MD Essential (primary) hypertension; Hyperlipidemia, unspecified; Unspecified osteoarthritis, unspecified site; Encounter for other orthopedic aftercare 10/27/2024 Lab Requisition [facility] [address] [place] [phone] Giovanni Coffey MD Essential (primary) hypertension; Hyperlipidemia, unspecified 10/23/2024 Lab Requisition [facility] [address] [place] [phone] Giovanni Coffey MD Essential (primary) hypertension; Hyperlipidemia, unspecified; Unspecified osteoarthritis, unspecified site; Encounter for other orthopedic aftercare 10/17/2024 Lab Requisition [facility] [address] [place] [phone] Giovanni Coffey MD Essential (primary) hypertension; Hyperlipidemia, unspecified 10/17/2024 Telephone Endocrinology [address] [phone] Lisandro Cohen [place] prolia info needed 10/14/2024 Telephone Adult Medicine [address] [phone] Carlita Villegas MD 08/15/2024 9:00 AM EST - 08/15/2024 11:59 PM EST Hospital Encounter Radiology Department - [address] [phone] Encounter for screening mammogram for breast cancer Discharge Disposition: Home or Self Care 08/13/2024 9:00 AM EST Office Visit Vascular Surgery - [place] [address] [place] [phone] Priya Lopez MD Asymptomatic bilateral carotid artery stenosis (Primary Dx) 08/07/2024 1:15 PM EST Office Visit Adult Medicine [address] [phone] Clifford Garcia PA Primary hypertension (Primary Dx); [...] COMMENT: bleeding COLONOSCOPY W/ BIOPSIES 04/07/2010 PROCEDURE: SD COLONOSCOPY STOMA W/BIOPSY SINGLE/MULTIPLE; COMMENT: Up to cecum, good preparation, 15mm polyp at ascending partially removed:tubular adenoma, transverse colon polyp removed.:ulcerated inflammatory polyp COLONOSCOPY 03/20/2012 PROCEDURE: SD COLONOSCOPY FLX DX W/COLLJ SPEC WHEN PFRMD; COMMENT: normal to mid right colon, very difficult exam. BREAST SURGERY 08/06/1986 Left PROCEDURE: SD UNLISTED PROCEDURE BREAST; COMMENT: benign Medical History [...] 10:00 AM EST Office Visit Endocrinology - [facility] [address] [place] [address] Gisell Villegas PA [address] [place] [address] 08/26/2025 10:00 AM EST Office Visit Vascular Surgery - [place] [address] [facility] [address] [place] [address] Priya Lopez MD [address] [place] [address] Health Maintenance Due Date Last Done Comments RSV Immunization Patients 60+ Years Old (1 - 1-dose 75+ series) 2019 Zoster Vaccines (3 of 3) 07/26/2021 05/31/2021, 03/06 Colorectal Cancer Screening: Colonoscopy 07/15/2022 05/08/2017 Depression Screening 07/15/2022 Falls Risk Assessment 07/15/2022 Medicare Annual Wellness Visit 07/15/2022 Social Influencers of Health Screening 07/15/2022 Hypertension/CHF/CAD Annual BMP Blood Test 11/03/2025 11/03/2024, 10/31/2024, 10/27/2024, Additional history exists DTaP,Tdap,and Td Vaccines (2 - Td or Tdap) 02/15/2028 02/14/2018 Cholesterol Screening (Lipid Panel) 10/17/2029 10/17/2024, 06/03/2024, 01/24/2024, Additional history exists Osteoporosis Screening (Bone Density Screening) 03/22/2033 03/22/2023, 06/14/2020, 05/06/2018 Pneumococcal Vaccine: 50+ Years Completed 11/10/2021, 09/01/2015, 06/01/2014 Influenza Vaccine Completed 05/09/2024, , 08/31/2023, Additional history exists COVID-19 Vaccine Completed 05/14/2024, , 06/06/2021, Additional history exists HIB Vaccines Aged Out [...] Procedure Name Priority Date/Time Associated Diagnosis Comments COMPREHENSIVE METABOLIC PANEL Routine 11/03/2024 5:42 AM EDT Essential (primary) hypertension Hyperlipidemia, unspecified COMPLETE BLOOD COUNT Routine 11/03/2024 5:42 AM EDT Essential (primary) hypertension Hyperlipidemia, unspecified COMPREHENSIVE METABOLIC PANEL Routine 10/31/2024 8:53 AM EDT Essential (primary) hypertension Hyperlipidemia, unspecified Unspecified osteoarthritis, unspecified site Encounter for other orthopedic aftercare COMPLETE BLOOD COUNT Routine 10/31/2024 8:53 AM EDT Essential (primary) hypertension Hyperlipidemia, unspecified Unspecified osteoarthritis, unspecified site Encounter for other orthopedic aftercare C-REACTIVE PROTEIN Routine 10/31/2024 8: 53 AM EDT Essential (primary) hypertension Hyperlipidemia, unspecified Unspecified osteoarthritis, unspecified site Encounter for other orthopedic aftercare COMPREHENSIVE METABOLIC PANEL Routine 10/27/2024 6:25 AM EDT Essential (primary) hypertension Hyperlipidemia, unspecified COMPLETE BLOOD COUNT Routine 10/27/2024 6:25 AM EDT Essential (primary) hypertension Hyperlipidemia, unspecified COMPREHENSIVE METABOLIC PANEL Routine 10/24/2024 5:10 AM EDT Essential (primary) hypertension Hyperlipidemia, unspecified Unspecified osteoarthritis, unspecified site Encounter for other orthopedic aftercare COMPLETE BLOOD COUNT Routine 10/24/2024 5:10 AM EDT Essential (primary) hypertension Hyperlipidemia, unspecified Unspecified osteoarthritis, unspecified site Encounter for other orthopedic aftercare C-REACTIVE PROTEIN Routine 10/24/2024 5: 10 AM EDT Essential (primary) hypertension Hyperlipidemia, unspecified Unspecified osteoarthritis, unspecified site Encounter for other orthopedic aftercare EXTERNAL VASCULAR ULTRASOUND 10/23/2024 EXTERNAL VASCULAR ULTRASOUND 10/23/2024 EXTERNAL VASCULAR ULTRASOUND 10/23/2024 EXTERNAL VASCULAR ULTRASOUND 10/23/2024 C-REACTIVE PROTEIN Routine 10/17/2024 8: 47 AM EDT Essential (primary) hypertension Hyperlipidemia, unspecified LIPID PANEL WITH REFLEX TO DIRECT LDL Routine 10/17/2024 8:47 AM EDT Essential (primary) hypertension Hyperlipidemia, unspecified COMPREHENSIVE METABOLIC PANEL Routine 10/17/2024 8:47 AM EDT Essential (primary) hypertension Hyperlipidemia, unspecified COMPLETE BLOOD COUNT Routine 10/17/2024 8:47 AM EDT Essential (primary) hypertension Hyperlipidemia, unspecified EXTERNAL XRAY REPORT 10/13/2024 EXTERNAL XRAY REPORT 10/13/2024 MG MAMMO DIGITAL SCREENING W TIMUR BILAT Routine 08/15/2024 9:14 AM EST Encounter for screening mammogram for breast cancer DXA BONE DENSITY STUDY 1+ SITS AXIAL SKEL Routine 03/22/2023 10:49 AM EDT Age-related osteoporosis without current pathological fracture COLONOSCOPY Routine 05/08/2017 from Last 3 Months or Most Recently Relevant to Health Maintenance Results * (ABNORMAL) Complete blood count (11/03/2024 5:42 AM EDT) Only the most recent of5 resultswithin the time period is included. WBC 5.5 4.8 - 10.8 K/mcL LAB HEMETOLOGY METHOD 11/03/2024 11:18 AM [facility] RBC 3.60(L) 3.80 - 4.80 M/mcL LAB HEMETOLOGY METHOD 11/03/2024 11:18 AM [facility] Hemoglobin 11.2(L) 11.5 - 16.0 g/dL LAB HEMETOLOGY METHOD 11/03/2024 11:18 AM [facility] Hematocrit 34.7(L) 35.0 - 47.0 % LAB HEMETOLOGY METHOD 11/03/2024 11:18 AM [facility] MCV 96.9 79.0 - 98.0 FL LAB HEMETOLOGY METHOD 11/03/2024 11:18 AM [facility] MCH 31.3 27.0 - 32.0 pcg LAB HEMETOLOGY METHOD 11/03/2024 11:18 AM [facility] MCHC 32.3 32.0 - 37.0 g/dL LAB HEMETOLOGY METHOD 11/03/2024 11:18 AM [facility] RDW 13.3 11.0 - 15.0 % LAB HEMETOLOGY METHOD 11/03/2024 11:18 AM [facility] Platelets 253 130 - 400 K/mcL LAB HEMETOLOGY METHOD 11/03/2024 11:18 AM [facility] MPV 10.4 7.0 - 11.0 FL LAB HEMETOLOGY METHOD 11/03/2024 11:18 AM EDT [facility] NRBC 0.0 <1.0 % LAB HEMETOLOGY METHOD 11/03/2024 11:18 AM EDT [facility] NRBC Absolute 0.00 <0.10 K/mcL LAB HEMETOLOGY METHOD 11/03/2024 11:18 AM T [facility] Blood Venous blood specimen / Unknown Venipuncture / Unknown 11/03/2024 5:42 AM EDT 11/03/2024 10:29 AM EDT us Giovanni Coffey MD LAB BLOOD ORDERABLES Final Resul t [facility] [address] [place] [address], [place] [phone] * (ABNORMAL) Comprehensive metabolic panel (11/03/2024 5:42 AM EDT) Only the most recent of5 resultswithin the time period is included. Sodium 140 133 - 145 mmol/L LAB CHEMISTRY METHOD 11/03/2024 12:06 PM [facility] Potassium 4.2 3.5 - 5.5 mmol/L LAB CHEMISTRY METHOD 11/03/2024 12:06 PM [facility] Chloride 105 96 - 110 mmol/L LAB CHEMISTRY METHOD 11/03/2024 12:06 PM [facility] CO2 27 21 - 32 mmol/L LAB CHEMISTRY METHOD 11/03/2024 12:06 PM [facility] Anion Gap 8 3 - 11 LAB CHEMISTRY METHOD 11/03/2024 12:06 PM [facility] Glucose 83 70 - 100 mg/dL LAB CHEMISTRY METHOD 11/03/2024 12:06 PM [facility] BUN 14 5 - 25 mg/dL LAB CHEMISTRY METHOD 11/03/2024 12:06 PM [facility] Creatinine 0.59 0.50 - 1.10 mg/dL LAB CHEMISTRY METHOD 11/03/2024 12:06 PM [facility] eGFR 91 >=60 mL/min/1. 73m2 LAB CHEMISTRY METHOD 11/03/2024 12:06 PM [facility] Comment:Calculation based on the??Chronic Kidney Disease Epidemiology Collaboration (CKD-EPI) equation refit??without adjustment for race. BUN/Creatinine Ratio 23.7 LAB CHEMISTRY METHOD 11/03/2024 12:06 PM [facility] Calcium 9.3 8.5 - 10.5 mg/dL LAB CHEMISTRY METHOD 11/03/2024 12:06 PM [facility] AST (SGOT) 27 10 - 42 unit/L LAB CHEMISTRY METHOD 11/03/2024 12:06 PM [facility] ALT (SGPT) 42 10 - 60 unit/L LAB CHEMISTRY METHOD 11/03/2024 12:06 PM [facility] Alkaline Phosphatase 171(H) 42 - 121 unit/L LAB CHEMISTRY METHOD 11/03/2024 12:06 PM [facility] Total Protein 6.5 6.0 - 8.0 g/dL LAB CHEMISTRY METHOD 11/03/2024 12:06 PM [facility] Albumin 3.0(L) 3.2 - 5.0 g/dL LAB CHEMISTRY METHOD 11/03/2024 12:06 PM [facility] Total Bilirubin 0.4 0.0 - 1.4 mg/dL LAB CHEMISTRY METHOD 11/03/2024 12:06 PM [facility] Blood Venous blood specimen / Unknown Venipuncture / Unknown 11/03/2024 5:42 AM EDT 11/03/2024 10:29 AM EDT us Giovanni Coffey MD LAB BLOOD ORDERABLES Final Resul t [facility] [address] [place] [address], [place] [phone] * (ABNORMAL) C-reactive protein (10/31/2024 8:53 AM EDT) Only the most recent of3 resultswithin the time period is included. Pathologist [facility] C-Reactive Protein 1.02(H) <=0.50 mg/dL LAB CHEMISTRY METHOD 10/31/2024 12:33 PM EDT [facility] Blood Venous blood specimen / Unknown Venipuncture / Unknown 10/31/2024 8:53 AM EDT 10/31/2024 10:21 AM EDT Giovanni Coffey MD LAB BLOOD ORDERABLES Final Resul t Performing Organization Address [facility]/State/ZIP Co de Phone Number [facility] [address] [place] [address], [place] [phone] * External Vascular Ultrasound (10/23/2024) Only the most recent of4 resultswithin the time period is included. Anatomical Region Laterality Modality Ultrasound us Provider [facility] CV VASCULAR PROCEDURES F inal Result * Lipid panel with reflex to direct LDL (10/17/2024 8:47 AM EDT) Cholesterol 173 0 - 200 mg/dL LAB CHEMISTRY METHOD 10/17/2024 11:42 AM EDT [facility] Triglycerides 101 0 - 150 mg/dL LAB CHEMISTRY METHOD 10/17/2024 11:42 AM EDT [facility] HDL 55 >=40 mg/dL LAB CHEMISTRY METHOD 10/17/2024 11:42 AM EDT [facility] LDL Calculated 98 0 - 100 mg/dL LAB CHEMISTRY METHOD 10/17/2024 11:42 AM EDT [facility] VLDL Cholesterol Waldemar 20.2 mg/dL LAB CHEMISTRY METHOD 10/17/2024 11:42 AM EDT [facility] Non HDL Chol. (LDL+VLDL) 118 <145 mg/dL LAB CHEMISTRY METHOD 10/17/2024 11:42 AM EDT [facility] Chol/HDL Ratio 3.1 0.0 - 4.4 LAB CHEMISTRY METHOD 10/17/2024 11:42 AM EDT [facility] Blood Venous blood specimen / Unknown Venipuncture / Unknown 10/17/2024 8:47 AM EDT 10/17/2024 10:31 AM EDT us Giovanni Coffey MD LAB BLOOD ORDERABLES Final Resul t [facility] [address] [place] [address], [place] [phone] * External Xray Report (10/13/2024) Only the most recent of2 resultswithin the time period is included. Anatomical Region Laterality Modality Radiographic Nicole ging us Provider [facility] IMG XR PROCEDURES Final Result * MG Mammo Digital Screening w Timur bilat (08/15/2024 9:14 AM EST) Anatomical Region Laterality Modality Breast Bilateral Mammography 08/15/2024 5:16 PM EST Impressions 08/15/2024 5:19 PM EST No mammographic evidence of malignancy. BREAST DENSITY: B - There are scattered areas of fibroglandular density. BI-RADS CATEGORY: 1 - NEGATIVE RECOMMENDATION: Screening bilateral mammogram is recommended in 1 year. MAMMO LOCATION: [facility], [address] [place] [address], [phone], . -------- FINAL REPORT -------- Dictated By: Karina Chang Dictated Date: 08/15/2024 17:16 ET Assigned Physician: Karina Chang Reviewed and Electronically Signed By: Karina Chang Signed Date: 08/15/2024 17:19 ET Workstation ID: [id number] Transcribed By: Self Edit Transcribed Date: 08/15/2024 [...] is recommended in 1 year. MAMMO LOCATION: [facility], [address] [place] [address], [facility], . -------- FINAL REPORT -------- Dictated By: Karina Chang Dictated Date: 08/15/2024 17:16 ET Assigned Physician: Karina Chang Reviewed and Electronically Signed By: Karina Chang Signed Date: 08/15/2024 17:19 ET Workstation ID: [id number] Transcribed By: Self Edit Transcribed Date: 08/15/2024 17:16 ET us Carlita Villegas MD IMG BI PROCEDURES Final Result * DXA BONE DENSITY STUDY 1+ [...] IMPRESSION: ?? Osteoporosis by WHO criteria. The [facility] Department of Internal Medicine recommends using National [...] alternative screening schedule based on may Amaya., [facility] August 24, 2011 for patients with osteopenia [...] IMPRESSION: IMPRESSION: Osteoporosis by WHO criteria. The [facility] Department of Internal Medicine recommendsusing National Osteoporosis [...] alternative screening schedule based on may Amaya., [place] 2011 for patients with osteopenia (based on hip BMD T-score) is as follows: * advanced osteopenia (T scores -2.00 to -2.49), BMD testing every year * moderate osteopenia (T scores -1.50 to -1.99), BMD testing every 5years mild osteopenia or normal BMD (T scores -1.50 and higher), BMD testingevery 15 years Lizbeth PRADHAN IMG DXA PROCEDURES Final Result * Colonoscopy (05/08/2017) Colonoscopy no interpretatio n, abstacted Anatomical Region Laterality Modality Other Historical Provider HEALTH MAINTENANCE Final Result from Last 3 Months or Most Recently Relevant to Health Maintenance Insurance [employer] MED[employer]VANTAGE [place] - [place] MEDICARE ADVANTAGE Care Teams Economic Developer Relationship Specialty Start Date End Date Carlita Villegas MD [address] [place] [phone] PCP - General 08/25/22
--- OUTSIDE RECORDS SUMMARY | 2024-11-04 09:23 | XMS_ITS | Patient Health Record ---
Author Organization [facility] Address [address] [facility] [address] [facility] [place] [address] Support Name Relationship Address Phone KEVIN PFEIFFER Guarantor Unknown [phone] Reason For Referral No Information Medications Medication SIG (Take, Route, Frequency, Duration) Notes Start Date End Date Status Calcium-Carb 600 + D 1 ORAL daily for -3 [facility] 2 Active Anita-D 12 Hour 60-120 1 ORAL twice daily for -3 [facility] 01/12/2012 Active Evista 60MG 1 ORAL daily for -3 [facility] 08/30/2012 Active Multivitamins 1 ORAL daily for -3 [facility] 01/12/2012 Active Problems Problem Type SNOMED Code ICD Code Onset Dates Problem Status W/U Status Risk Notes Problem Osteoarthritis (376639576) Osteoarthrosis, unspecified whether generalized or localized, unspecified site (715.90) Active confirmed Major Problem Osteoporosis (63419293) Unspecified osteoporosis (733.00) Active confirmed Major Problem Gynecological examination normal (104769730564119) Routine gynecological examination (V72.31) Active confirmed Diag Plan Of Treatment No Information Insurance Providers Payer Name Payer Address Payer Phone Subscriber Number Group Number Insured Name Patient Relationship to Insured Coverage Start Date Coverage End Date [employer] MED[employer] ADVANTAGE [facility] [address] [place] [address] [id number] KEVIN PFEIFFER Self - patient is the insured
--- OUTSIDE RECORDS SUMMARY | 2024-11-04 09:23 | XMS_ITS | Encounter Summary ---
Author Organization [facility] Address [address] [place] [address] Care Team Providers Care Chipper Name Role Phone Carlita Villegas MD Primary Care Provider [phone] Encounter Details Date Type Department Care Team (Late Contact Info) Description 11/01/2024 Lab Requisition [facility] - Main Lab [address] [facility] [place] [address] Giovanni Coffey MD [address] [place] [address], [phone] Essential (primary) hypertension; Hyperlipidemia, unspecified Social [...] 10:00 AM EST Office Visit Endocrinology - [place] [address] [place] [address] Gisell Villegas PA [address] [place] [address] 08/26/2025 10:00 AM EST Office Visit Vascular Surgery - [place] [address] [place] [address] Priya Lopez MD [address] [place] [address] documented as of this encounter Procedures Procedure Name Priority Date/Time Associated Diagnosis Comments COMPLETE BLOOD COUNT Routine 11/03/2024 5:42 AM EDT Essential (primary) hypertension Hyperlipidemia, unspecified COMPREHENSIVE METABOLIC PANEL Routine 11/03/2024 5:42 AM EDT Essential (primary) hypertension Hyperlipidemia, unspecified documented in this encounter Results * (ABNORMAL) Comprehensive metabolic panel (11/03/2024 5:42 AM EDT) Sodium 140 133 - 145 mmol/L LAB CHEMISTRY METHOD 11/03/2024 12:06 PM [facility] Potassium 4.2 3.5 - 5.5 mmol/L LAB CHEMISTRY METHOD 11/03/2024 12:06 PM [facility] Chloride 105 96 - 110 mmol/L LAB CHEMISTRY METHOD 11/03/2024 12:06 PM [facility] CO2 27 21 - 32 mmol/L LAB CHEMISTRY METHOD 11/03/2024 12:06 PM [facility] Anion Gap 8 3 - 11 LAB CHEMISTRY METHOD 11/03/2024 12:06 PM [facility] Glucose 83 70 - 100 mg/dL LAB CHEMISTRY METHOD 11/03/2024 12:06 PM [facility] BUN 14 5 - 25 mg/dL LAB CHEMISTRY METHOD 11/03/2024 12:06 PM [facility] Creatinine 0.59 0.50 - 1.10 mg/dL LAB CHEMISTRY METHOD 11/03/2024 12:06 PM [facility] eGFR 91 >=60 mL/min/1. 73m2 LAB CHEMISTRY METHOD 11/03/2024 12:06 PM [facility] Comment:Calculation based on the??Chronic Kidney Disease Epidemiology Collaboration (CKD-EPI) equation refit??without adjustment for race. BUN/Creatinine Ratio 23.7 LAB CHEMISTRY METHOD 11/03/2024 12:06 PM [facility] Calcium 9.3 8.5 - 10.5 mg/dL LAB CHEMISTRY METHOD 11/03/2024 12:06 PM [facility] AST (SGOT) 27 10 - 42 unit/L LAB CHEMISTRY METHOD 11/03/2024 12:06 PM [facility] ALT (SGPT) 42 10 - 60 unit/L LAB CHEMISTRY METHOD 11/03/2024 12:06 PM [facility] Alkaline Phosphatase 171(H) 42 - 121 unit/L LAB CHEMISTRY METHOD 11/03/2024 12:06 PM [facility] Total Protein 6.5 6.0 - 8.0 g/dL LAB CHEMISTRY METHOD 11/03/2024 12:06 PM [facility] Albumin 3.0(L) 3.2 - 5.0 g/dL LAB CHEMISTRY METHOD 11/03/2024 12:06 PM [facility] Total Bilirubin 0.4 0.0 - 1.4 mg/dL LAB CHEMISTRY METHOD 11/03/2024 12:06 PM [facility] Blood Venous blood specimen / Unknown Venipuncture / Unknown 11/03/2024 5:42 AM EDT 11/03/2024 10:29 AM EDT us Giovanni Coffey MD LAB BLOOD ORDERABLES Final Resul t [facility] [address] [place] [address], [place] [phone] * (ABNORMAL) Complete blood count (11/03/2024 5:42 AM EDT) WBC 5.5 4.8 - 10.8 K/mcL LAB HEMETOLOGY METHOD 11/03/2024 11:18 AM [facility] RBC 3.60(L) 3.80 - 4.80 M/mcL LAB HEMETOLOGY METHOD 11/03/2024 11:18 AM [facility] Hemoglobin 11.2(L) 11.5 - 16.0 g/dL LAB HEMETOLOGY METHOD 11/03/2024 11:18 AM [facility] Hematocrit 34.7(L) 35.0 - 47.0 % LAB HEMETOLOGY METHOD 11/03/2024 11:18 AM [facility] MCV 96.9 79.0 - 98.0 FL LAB HEMETOLOGY METHOD 11/03/2024 11:18 AM [facility] MCH 31.3 27.0 - 32.0 pcg LAB HEMETOLOGY METHOD 11/03/2024 11:18 AM [facility] MCHC 32.3 32.0 - 37.0 g/dL LAB HEMETOLOGY METHOD 11/03/2024 11:18 AM [facility] RDW 13.3 11.0 - 15.0 % LAB HEMETOLOGY METHOD 11/03/2024 11:18 AM [facility] Platelets 253 130 - 400 K/mcL LAB HEMETOLOGY METHOD 11/03/2024 11:18 AM [facility] MPV 10.4 7.0 - 11.0 FL LAB HEMETOLOGY METHOD 11/03/2024 11:18 AM [facility] NRBC 0.0 <1.0 % LAB HEMETOLOGY METHOD 11/03/2024 11:18 AM [facility] NRBC Absolute 0.00 <0.10 K/mcL LAB HEMETOLOGY METHOD 11/03/2024 11:18 AM [facility] Blood Venous blood specimen / Unknown Venipuncture / Unknown 11/03/2024 5:42 AM EDT 11/03/2024 10:29 AM EDT us Giovanni Coffey MD LAB BLOOD ORDERABLES Final Resul t [facility] [address] [place] [address], documented in this encounter Visit Diagnoses Diagnosis Essential (primary) hypertension Unspecified essential hypertension Hyperlipidemia, unspecified documented in this encounter Care Teams Chipper Relationship Specialty Start Date End Date Carlita Villegas MD [address] [place] [phone] PCP - General 08/25/22 documented as of this encounter
== END 2024-11-03 08:51 | disposition home or self-care (01) ==
LOC: HO.HOSX 08:50
DX: Z13.89 Encounter for screening for other disorder (principal)

== ENCOUNTER 2024-11-10 08:12 | Outpatient (REF) | payer MEDICARE, SELFPAY ==
--- NOTE | ~2024-11-10 | XR_ITS ---
EXAMINATION: XR PELVIS CLINICAL INFORMATION: M25.559 - Pain in unspecified hip COMPARISON: None available. TECHNIQUE: AP view of the pelvis. FINDINGS: There is a cortical irregularity/disruption in the right side of the symphysis pubis and questionable at the base of the right superior pubic ramus. The femurs are intact. The iliac bones are intact. Vascular calcifications. XR/XR pelvis 1-2V IMPRESSION: Concerning acute nondisplaced fractures, right side of the symphysis pubis and probably at the base of the right superior ramus Findings communicated via [employer] connect to the physician store assistant, Luke López at 2:57 PM on November 10, 2024.. Electronically signed by: Zeke Garcia MD 11/10/2024 02:58 PM EDT
--- OUTSIDE RECORDS SUMMARY | 2024-11-10 08:30 | XMS_ITS | Encounter Summary ---
Author Organization [facility] Address [address] [place] [address] Care Team Providers Care Buttoner Name Role Phone Carlita Villegas MD Primary Care Provider [phone] Encounter Details Date Type Department Care Team (Late Contact Info) Description 11/01/2024 Lab Requisition [facility] - Main Lab [address] [facility] [place] [address] Giovanni Coffey MD [address] [place] [address], [phone] Essential (primary) hypertension; Hyperlipidemia, unspecified Social [...] 10:00 AM EST Office Visit Endocrinology - [place] [address] [place] [address] Gisell Villegas PA [address] [place] [address] 08/26/2025 10:00 AM EST Office Visit Vascular Surgery - [place] [address] [place] [address] Priya Lopez MD [address] [place] [address] documented as of this encounter Procedures Procedure [...] mmol/L LAB CHEMISTRY METHOD 11/03/2024 12:06 PM [facility] Potassium 4.2 3.5 - 5.5 mmol/L LAB CHEMISTRY METHOD 11/03/2024 12:06 PM [facility] Chloride 105 96 - 110 mmol/L LAB CHEMISTRY METHOD 11/03/2024 12:06 PM [facility] CO2 27 21 - 32 mmol/L LAB CHEMISTRY METHOD 11/03/2024 12:06 PM [facility] Anion Gap 8 3 - 11 LAB CHEMISTRY METHOD 11/03/2024 12:06 PM [facility] Glucose 83 70 - 100 mg/dL LAB CHEMISTRY METHOD 11/03/2024 12:06 PM [facility] BUN 14 5 - 25 mg/dL LAB CHEMISTRY METHOD 11/03/2024 12:06 PM [facility] Creatinine 0.59 0.50 - 1.10 mg/dL LAB CHEMISTRY METHOD 11/03/2024 12:06 PM [facility] eGFR 91 >=60 mL/min/1. 73m2 LAB CHEMISTRY METHOD 11/03/2024 12:06 PM [facility] Comment:Calculation based on the??Chronic Kidney Disease Epidemiology Collaboration (CKD-EPI) equation refit??without adjustment for race. BUN/Creatinine Ratio 23.7 LAB CHEMISTRY METHOD 11/03/2024 12:06 PM [facility] Calcium 9.3 8.5 - 10.5 mg/dL LAB CHEMISTRY METHOD 11/03/2024 12:06 PM [facility] AST (SGOT) 27 10 - 42 unit/L LAB CHEMISTRY METHOD 11/03/2024 12:06 PM [facility] ALT (SGPT) 42 10 - 60 unit/L LAB CHEMISTRY METHOD 11/03/2024 12:06 PM [facility] Alkaline Phosphatase 171(H) 42 - 121 unit/L LAB CHEMISTRY METHOD 11/03/2024 12:06 PM [facility] Total Protein 6.5 6.0 - 8.0 g/dL LAB CHEMISTRY METHOD 11/03/2024 12:06 PM [facility] Albumin 3.0(L) 3.2 - 5.0 g/dL LAB CHEMISTRY METHOD 11/03/2024 12:06 PM [facility] Total Bilirubin 0.4 0.0 - 1.4 mg/dL LAB CHEMISTRY METHOD 11/03/2024 12:06 PM [facility] Blood Venous blood specimen / Unknown Venipuncture / Unknown 11/03/2024 5:42 AM EDT 11/03/2024 10:29 AM EDT us Giovanni Coffey MD LAB BLOOD ORDERABLES Final Resul t [facility] [address] [place] [address], [place] [phone] * (ABNORMAL) Complete blood count (11/03/2024 5:42 AM EDT) WBC 5.5 4.8 - 10.8 K/mcL LAB HEMETOLOGY METHOD 11/03/2024 11:18 AM [facility] RBC 3.60(L) 3.80 - 4.80 M/mcL LAB HEMETOLOGY METHOD 11/03/2024 11:18 AM [facility] Hemoglobin 11.2(L) 11.5 - 16.0 g/dL LAB HEMETOLOGY METHOD 11/03/2024 11:18 AM [facility] Hematocrit 34.7(L) 35.0 - 47.0 % LAB HEMETOLOGY METHOD 11/03/2024 11:18 AM [facility] MCV 96.9 79.0 - 98.0 FL LAB HEMETOLOGY METHOD 11/03/2024 11:18 AM [facility] MCH 31.3 27.0 - 32.0 pcg LAB HEMETOLOGY METHOD 11/03/2024 11:18 AM [facility] MCHC 32.3 32.0 - 37.0 g/dL LAB HEMETOLOGY METHOD 11/03/2024 11:18 AM [facility] RDW 13.3 11.0 - 15.0 % LAB HEMETOLOGY METHOD 11/03/2024 11:18 AM [facility] Platelets 253 130 - 400 K/mcL LAB HEMETOLOGY METHOD 11/03/2024 11:18 AM [facility] MPV 10.4 7.0 - 11.0 FL LAB HEMETOLOGY METHOD 11/03/2024 11:18 AM [facility] NRBC 0.0 <1.0 % LAB HEMETOLOGY METHOD 11/03/2024 11:18 AM [facility] NRBC Absolute 0.00 <0.10 K/mcL LAB HEMETOLOGY METHOD 11/03/2024 11:18 AM [facility] Blood Venous blood specimen / Unknown Venipuncture / Unknown 11/03/2024 5:42 AM EDT 11/03/2024 10:29 AM EDT us Giovanni Coffey MD LAB BLOOD ORDERABLES Final Resul t [facility] [address] [place] [address], documented in this encounter Visit Diagnoses Diagnosis Essential (primary) hypertension Unspecified essential hypertension Hyperlipidemia, unspecified documented in this encounter Care Teams Buttoner Relationship Specialty Start Date End Date Carlita Villegas MD [address] [place] [address] PCP - General 08/25/22 documented as of this encounter
--- OUTSIDE RECORDS SUMMARY | 2024-11-10 08:30 | XMS_ITS | Encounter Summary ---
Author Organization [facility] Address [address] [place] [address] Care Team Providers Care Fire Engineer Name Role Phone Carilta Villegas MD Primary Care Provider [phone] Encounter Details Date Type Department Care Team (Late Contact Info) Description 10/17/2024 Lab Requisition [facility] - Main Lab 299 [facility] [place] [address] Giovanni Coffey MD [address] [place] [address], [phone] Essential (primary) hypertension; Hyperlipidemia, unspecified Social [...] 10:00 AM EST Office Visit Endocrinology - [place] [address] [place] [address] Gisell Villegas PA [address] [place] [address] 08/26/2025 10:00 AM EST Office Visit Vascular Surgery - [place] [address] [place] [address] Priya Lopez MD [address] [place] [address] documented as of this encounter Procedures Procedure [...] LAB CHEMISTRY METHOD 10/17/2024 11:41 AM EDT [facility] Blood Venous blood specimen / Unknown Venipuncture / Unknown 10/17/2024 8:47 AM EDT 10/17/2024 10:31 AM EDT us Giovanni Coffey MD LAB BLOOD ORDERABLES Final Resul t [facility] [address] [place] [address], * Lipid panel with reflex to direct LDL (10/17/2024 8:47 AM EDT) Cholesterol 173 0 - 200 mg/dL LAB CHEMISTRY METHOD 10/17/2024 11:42 AM EDT [facility] Triglycerides 101 0 - 150 mg/dL LAB CHEMISTRY METHOD 10/17/2024 11:42 AM EDT [facility] HDL 55 >=40 mg/dL LAB CHEMISTRY METHOD 10/17/2024 11:42 AM EDT [facility] LDL Calculated 98 0 - 100 mg/dL LAB CHEMISTRY METHOD 10/17/2024 11:42 AM EDT [facility] VLDL Cholesterol Waldemar 20.2 mg/dL LAB CHEMISTRY METHOD 10/17/2024 11:42 AM T [facility] Non HDL Chol. (LDL+VLDL) 118 <145 mg/dL LAB CHEMISTRY METHOD 10/17/2024 11:42 AM [facility] Chol/HDL Ratio 3.1 0.0 - 4.4 LAB CHEMISTRY METHOD 10/17/2024 11:42 AM [facility] Blood Venous blood specimen / Unknown Venipuncture / Unknown 10/17/2024 8:47 AM EDT 10/17/2024 10:31 AM EDT us Giovanni Coffey MD LAB BLOOD ORDERABLES Final Resul t [facility] [address] [place] [address], [place] [phone] * (ABNORMAL) Comprehensive metabolic panel (10/17/2024 8:47 AM EDT) Sodium 138 133 - 145 mmol/L LAB CHEMISTRY METHOD 10/17/2024 11:41 AM T [facility] Potassium 3.8 3.5 - 5.5 mmol/L LAB CHEMISTRY METHOD 10/17/2024 11:41 AM [facility] Chloride 105 96 - 110 mmol/L LAB CHEMISTRY METHOD 10/17/2024 11:41 AM [facility] CO2 28 21 - 32 mmol/L LAB CHEMISTRY METHOD 10/17[facility]24 [facility] Anion Gap 5 3 - 11 LAB CHEMISTRY METHOD 10/17/2024 11:41 AM [facility] Glucose 128(H) 70 - 100 mg/dL LAB CHEMISTRY METHOD 10/17/2024 11:41 AM [facility] BUN 16 5 - 25 mg/dL LAB CHEMISTRY METHOD 10/17/2024 11:41 AM [facility] Creatinine 0.65 0.50 - 1.10 mg/dL LAB CHEMISTRY METHOD 10/17/2024 11:41 AM [facility] eGFR 89 >=60 mL/min/1. 73m2 LAB CHEMISTRY METHOD 10/17/2024 11:41 AM [facility] Comment:Calculation based on the??Chronic Kidney Disease Epidemiology Collaboration (CKD-EPI) equation refit??without adjustment for race. BUN/Creatinine Ratio 24.6 LAB CHEMISTRY METHOD 10/17/2024 11:41 AM [facility] Calcium 8.8 8.5 - 10.5 mg/dL LAB CHEMISTRY METHOD 10/17/2024 11:41 AM [facility] AST (SGOT) 65(H) 10 - 42 unit/L LAB CHEMISTRY METHOD 10/17/2024 11:41 AM [facility] ALT (SGPT) 47 10 - 60 unit/L LAB CHEMISTRY METHOD 10/17/2024 11:41 AM [facility] Alkaline Phosphatase 60 42 - 121 unit/L LAB CHEMISTRY METHOD 10/17/2024 11:41 AM [facility] Total Protein 6.2 6.0 - 8.0 g/dL LAB CHEMISTRY METHOD 10/17/2024 11:41 AM [facility] Albumin 2.8(L) 3.2 - 5.0 g/dL LAB CHEMISTRY METHOD 10/17/2024 11:41 AM [facility] Total Bilirubin 0.7 0.0 - 1.4 mg/dL LAB CHEMISTRY METHOD 10/17/2024 11:41 AM EDT [facility] Blood Venous blood specimen / Unknown Venipuncture / Unknown 10/17/2024 8:47 AM EDT 10/17/2024 10:31 AM EDT us Giovanni Coffey MD LAB BLOOD ORDERABLES Final Resul t [facility] [address] [place] [address], [place] [phone] * (ABNORMAL) Complete blood count (10/17/2024 8:47 AM EDT) WBC 5.1 4.8 - 10.8 K/mcL LAB HEMETOLOGY METHOD 10/17/2024 11:13 AM [facility] RBC 3.70(L) 3.80 - 4.80 M/mcL LAB HEMETOLOGY METHOD 10/17[facility]2024 [facility] Hemoglobin 11.8 11.5 - 16.0 g/dL LAB HEMETOLOGY METHOD 10/17/2024 11:13 AM [facility] Hematocrit 35.7 35.0 - 47.0 % LAB HEMETOLOGY METHOD 10/17/2024 11:13 AM [facility] MCV 95.5 79.0 - 98.0 FL LAB HEMETOLOGY METHOD 10/17/2024 11:13 [facility] MCH 31.6 27.0 - 32.0 pcg LAB HEMETOLOGY METHOD 10/17/2024 11:13 AM [facility] MCHC 33.1 32.0 - 37.0 g/dL LAB HEMETOLOGY METHOD 10/17/2024 11:13 AM [facility] RDW 13.1 11.0 - 15.0 % LAB HEMETOLOGY METHOD 10/17/2024 11:13 AM EDT [facility] Platelets 184 130 - 400 K/mcL LAB HEMETOLOGY METHOD 10/17/2024 11:13 AM EDT [facility] MPV 11.4(H) 7.0 - 11.0 FL LAB HEMETOLOGY METHOD 10/17/2024 11:13 AM EDT [facility] NRBC 0.0 <1.0 % LAB HEMETOLOGY METHOD 10/17/2024 11:13 AM EDT [facility] NRBC Absolute 0.00 <0.10 K/mcL LAB HEMETOLOGY METHOD 10/17/2024 11:13 AM EDT [facility] Blood Venous blood specimen / Unknown Venipuncture / Unknown 10/17/2024 8:47 AM EDT 10/17/2024 10:31 AM EDT us Giovanni Coffey MD LAB BLOOD ORDERABLES Final Resul t [facility] [address] [place] [address], documented in this encounter Visit Diagnoses Diagnosis Essential (primary) hypertension Unspecified essential hypertension Hyperlipidemia, unspecified documented in this encounter Care Teams Fire Engineer Relationship Specialty Start Date End Date Carlita Villegas MD [address] [place] [address] PCP - General 08/25/22 documented as of this encounter
--- OUTSIDE RECORDS SUMMARY | 2024-11-10 08:30 | XMS_ITS | Encounter Summary ---
Author Organization [facility] [place] [facility] Address [address] [place] [address] Care Team Providers Care Certification Engineer Name Role Phone Carlita Villegas MD Primary Care Provider [phone] Encounter Details Date Type Department Care Team (Late Contact Info) Description 11/07/2024 Lab Requisition [facility] - Main Lab 299 [facility] [place] [address] Giovanni Coffey MD [address] [place] [address], [phone] Essential (primary) hypertension Social History Tobacco Use Types Packs/Day Years [...] Encounters Date Type Department Care Team (Late Contact Info) Description 06/17/2025 10:00 AM EST Office Visit Endocrinology - [place] [address] [place] [address] Gisell Villegas PA [address] [place] [address] 08/26/2025 10:00 AM EST Office Visit Vascular Surgery - [place] [address] [place] [id number] Priya Lopez MD [address] [place] [address] documented as of this encounter Procedures Procedure Name Priority Date/Time Associated Diagnosis Comments URINALYSIS WITH REFLEX MICROSCOPIC Routine 11/06/2024 9:28 PM EDT Essential (primary) hypertension URINALYSIS WITH REFLEX MICROSCOPIC Routine 11/06/2024 9:28 PM EDT Essential (primary) hypertension CULTURE URINE Routine 11/06/2024 9:28 PM EDT Essential (primary) hypertension documented in this encounter Results * (ABNORMAL) Urinalysis with reflex microscopic (11/06/2024 9:28 PM EDT) [place] Urine 1.014 1.003 - 1.030 LAB URINALYSIS - AUTOMATED METHOD 11/07/2024 11:48 AM [facility] pH, Urine 6.0 5.0 - 8.0 pH LAB URINALYSIS - AUTOMATED METHOD 11/07/2024 11:48 AM [facility] Leukocytes, Urine Large(A) Negative LAB URINALYSIS - AUTOMATED METHOD 11/07/2024 11:48 AM [facility] Nitrite, Urine Positive(A) Negative LAB URINALYSIS - AUTOMATED METHOD 11/07/2024 11:48 AM [facility] Protein, Urine 30(A) <=Trace mg/dL LAB URINALYSIS - AUTOMATED METHOD 11/07/2024 11:48 AM [facility] Glucose, Urine Negative Negative mg/dL LAB URINALYSIS - AUTOMATED METHOD 11/07/2024 11:48 AM [facility] Ketones, Urine Negative Negative mg/dL LAB URINALYSIS - AUTOMATED METHOD 11/07/2024 11:48 AM [facility] Urobilinogen , Urine 0.2 0.2 - 1.0 mg/dL LAB URINALYSIS - AUTOMATED METHOD 11/07/2024 11:48 AM [facility] Bilirubin, Urine Negative Negative LAB URINALYSIS - AUTOMATED METHOD 11/07/2024 11:48 AM [facility] Blood, Urine Large(A) Negative LAB URINALYSIS - AUTOMATED METHOD 11/07/2024 11:48 AM [facility] RBC, Urine 7.7(H) 0 - 4 /HPF LAB URINALYSIS - AUTOMATED METHOD 11/07/2024 11:48 AM [facility] WBC, Urine 357.6(H) 0 - 4 /HPF LAB URINALYSIS - AUTOMATED METHOD 11/07/2024 11:48 AM [facility] Squamous Epithelial, Urine 12 0 - 60 /LPF LAB URINALYSIS - AUTOMATED METHOD 11/07/2024 11:48 AM [facility] Bacteria, Urine Many(A) Negative /HPF LAB URINALYSIS - AUTOMATED METHOD 11/07/2024 11:48 AM [facility] Hyaline Casts, Urine 0.4 0 - 3 /LPF LAB URINALYSIS - AUTOMATED METHOD 11/07/2024 11:48 AM [facility] Urine Urine specimen from urethra / Unknown Non-blood Collection / Unknown 11/06/2024 9:28 PM EDT 11/07/2024 10:51 AM EDT us Giovanni Coffey MD LAB URINE ORDERABLES Final Resul t [facility] [address] [place] [address], * (ABNORMAL) Culture urine (11/06/2024 9:28 PM EDT) Culture, Urine >100,000 CFU/mL Escherichia coli(A) DANO 11/09/2024 9:22 AM EDT [facility] Urine Urine specimen from urethra / Unknown Non-blood Collection / Unknown 11/06/2024 9:28 PM EDT 11/07/2024 10:51 AM EDT Narrative Organism Antibiotic Method Susceptibility Escherichia coli Amoxicillin/Clavulanate DANO <=2 ug/ml: Susceptible Escherichia coli Ampicillin/Sulbactam DANO <=2 ug/ml: Susceptible Escherichia coli Piperacillin/Tazobactam DANO <=4 ug/ml: Susceptible Escherichia coli Cefazolin (Urine) DANO 2 ug/ml: Susceptible Escherichia coli Cefoxitin DANO <=4 ug/ml: Susceptible Escherichia coli Ceftazidime DANO <=0.5 ug/ml: Susceptible Escherichia coli Ceftriaxone DANO <=0.25 ug/ml: Susceptible Escherichia coli Cefepime DANO <=0.12 ug/ml: Susceptible Escherichia coli Meropenem DANO <=0.25 ug/ml: Susceptible Escherichia coli Amikacin DANO 2 ug/ml: Susceptible Escherichia coli Gentamicin DANO <=1 ug/ml: Susceptible Escherichia coli Ciprofloxacin DANO <=0.06 ug/ml: Susceptible Escherichia coli Levofloxacin DANO <=0.12 ug/ml: Susceptible Escherichia coli Nitrofurantoin DANO 32 ug/ml: Susceptible Escherichia coli Trimethoprim/Sulfamethoxazole DANO <=20 ug/ml: Susceptible us Giovanni Coffey MD LAB MICROBIOLOGY - GENERAL ORDER ERWIN Final Result [facility] [address] [place] [address], documented in this encounter Visit Diagnoses Diagnosis Essential (primary) hypertension Unspecified essential hypertension documented in this encounter Care Teams Certification Engineer Relationship Specialty Start Date End Date Carlita Villegas MD [address] [place] [address] PCP - General 08/25/22 documented as of this encounter
--- OUTSIDE RECORDS SUMMARY | 2024-11-10 08:30 | XMS_ITS | Encounter Summary ---
Author Organization [facility] Address [address] [place] [address] Care Team Providers Care Digital Media Coordinator Name Role Phone Carlita Villegas MD Primary Care Provider [phone] Encounter Details Date Type Department Care Team (Late Contact Info) Description 11/09/2024 Lab Requisition [facility] - Main Lab 299 [facility] [place] [address] Giovanni Coffey MD [address] [place] [address], [phone] Essential (primary) hypertension; Hyperlipidemia, unspecified Social [...] 10:00 AM EST Office Visit Endocrinology - [place] [address] [place] [address] Gisell Villegas PA [address] [place] [address] 08/26/2025 10:00 AM EST Office Visit Vascular Surgery - [place] [address] [place] [address] Priya Lopez MD [address] [facility] [address] [place] [address] Scheduled Orders Name Type Priority Associated Diagnoses Orde r Schedule Complete blood count Lab Routine Essential (primary) hypertension Hyperlipidemia, unspecified Ordered: 11/09/2024 Comprehensive metabolic panel Lab Routine Essential (primary) hypertension Hyperlipidemia, unspecified Ordered: 11/09/2024 documented as of this encounter Visit Diagnoses Diagnosis Essential (primary) hypertension Unspecified essential hypertension Hyperlipidemia, unspecified documented in this encounter Care Teams Digital Media Coordinator Relationship Specialty Start Date End Date Carlita Villegas MD [address] [place] [address] PCP - General 08/25/22 documented as of this encounter
--- OUTSIDE RECORDS SUMMARY | 2024-11-10 08:30 | XMS_ITS | Encounter Summary ---
Author Organization [facility] Address [address] [place] [address] Care Team Providers Care Cartography Technician Name Role Phone Carlita Villegas MD Primary Care Provider [phone] Encounter Details Date Type Department Care Team (Late st Contact Info) Description 11/06/2024 Lab Requisition [facility] - Main Lab [address] [facility] [place] [address] Giovanni Coffey MD [address] [place] [address], [phone] Essential (primary) hypertension; Hyperlipidemia, unspecified; Unspecified [...] 10:00 AM EST Office Visit Endocrinology - [place] [address] [place], [place] [phone] Gisell Villegas PA [address] [place], [place] 08/26/2025 10:00 AM EST Office Visit Vascular Surgery - [place] [address] [place] [address] Priya Lopez MD [address] [place] [address] documented as of this encounter Procedures Procedure Name Priority Date/Time Associated Diagnosis Comments COMPLETE BLOOD COUNT Routine 11/07/2024 8:03 AM EDT Essential (primary) hypertension Hyperlipidemia, unspecified Unspecified osteoarthritis, unspecified site Encounter for other orthopedic aftercare C-REACTIVE PROTEIN Routine 11/07/2024 8: 03 AM EDT Essential (primary) hypertension Hyperlipidemia, unspecified Unspecified osteoarthritis, unspecified site Encounter for other orthopedic aftercare COMPREHENSIVE METABOLIC PANEL Routine 11/07/2024 8:03 AM EDT Essential (primary) hypertension Hyperlipidemia, unspecified Unspecified osteoarthritis, unspecified site Encounter for other orthopedic aftercare documented in this encounter Results * (ABNORMAL) Comprehensive metabolic panel (11/07/2024 8:03 AM EDT) Sodium 139 133 - 145 mmol/L LAB CHEMISTRY METHOD 11/07/2024 11:58 AM [facility] Potassium 4.0 3.5 - 5.5 mmol/L LAB CHEMISTRY METHOD 11/07/2024 11:58 AM [facility] Chloride 105 96 - 110 mmol/L LAB CHEMISTRY METHOD 11/07/2024 11:58 AM [facility] CO2 28 21 - 32 mmol/L LAB CHEMISTRY METHOD 11/07/2024 11:58 AM [facility] Anion Gap 6 3 - 11 LAB CHEMISTRY METHOD 11/07/2024 11:58 AM [facility] Glucose 86 70 - 100 mg/dL LAB CHEMISTRY METHOD 11/07/2024 11:58 AM [facility] BUN 15 5 - 25 mg/dL LAB CHEMISTRY METHOD 11/07/2024 11:58 AM [facility] Creatinine 0.62 0.50 - 1.10 mg/dL LAB CHEMISTRY METHOD 11/07/2024 11:58 AM [facility] eGFR 90 >=60 mL/min/1. 73m2 LAB CHEMISTRY METHOD 11/07/2024 11:58 AM [facility] Comment:Calculation based on the??Chronic Kidney Disease Epidemiology Collaboration (CKD-EPI) equation refit??without adjustment for race. BUN/Creatinine Ratio 24.2 LAB CHEMISTRY METHOD 11/07/2024 11:58 AM [facility] Calcium 9.1 8.5 - 10.5 mg/dL LAB CHEMISTRY METHOD 11/07/2024 11:58 AM [facility] AST (SGOT) 21 10 - 42 unit/L LAB CHEMISTRY METHOD 11/07/2024 11:58 AM [facility] ALT (SGPT) 31 10 - 60 unit/L LAB CHEMISTRY METHOD 11/07/2024 11:58 AM [facility] Alkaline Phosphatase 152(H) 42 - 121 unit/L LAB CHEMISTRY METHOD 11/07/2024 11:58 AM [facility] Total Protein 6.8 6.0 - 8.0 g/dL LAB CHEMISTRY METHOD 11/07/2024 11:58 AM [facility] Albumin 3.3 3.2 - 5.0 g/dL LAB CHEMISTRY METHOD 11/07/2024 11:58 AM [facility] Total Bilirubin 0.5 0.0 - 1.4 mg/dL LAB CHEMISTRY METHOD 11/07/2024 11:58 AM [facility] Blood Venous blood specimen / Unknown Venipuncture / Unknown 11/07/2024 8:03 AM EDT 11/07/2024 10:42 AM EDT us Giovanni Coffey MD LAB BLOOD ORDERABLES Final Resul t [facility] [address] [place] [address], * (ABNORMAL) Complete blood count (11/07/2024 8:03 AM EDT) WBC 4.9 4.8 - 10.8 K/mcL LAB HEMETOLOGY METHOD 11/07/2024 11:17 AM EDT [facility] RBC 3.70(L) 3.80 - 4.80 M/mcL LAB HEMETOLOGY METHOD 11/07/2024 11:17 AM EDT [facility] Hemoglobin 11.5 11.5 - 16.0 g/dL LAB HEMETOLOGY METHOD 11/07/2024 11:17 AM [facility] Hematocrit 35.7 35.0 - 47.0 % LAB HEMETOLOGY METHOD 11/07/2024 11:17 AM EDT [facility] MCV 96.7 79.0 - 98.0 FL LAB HEMETOLOGY METHOD 11/07/2024 11:17 AM EDT [facility] MCH 31.2 27.0 - 32.0 pcg LAB HEMETOLOGY METHOD 11/07/2024 11:17 AM [facility] MCHC 32.2 32.0 - 37.0 g/dL LAB HEMETOLOGY METHOD 11/07/2024 11:17 AM EDT [facility] RDW 13.4 11.0 - 15.0 % LAB HEMETOLOGY METHOD 11/07/2024 11:17 AM EDT [facility] Platelets 222 130 - 400 K/mcL LAB HEMETOLOGY METHOD 11/07/2024 11:17 AM [facility] MPV 10.4 7.0 - 11.0 FL LAB HEMETOLOGY METHOD 11/07/2024 11:17 AM EDT [facility] NRBC 0.0 <1.0 % LAB HEMETOLOGY METHOD 11/07/2024 11:17 AM EDT [facility] NRBC Absolute 0.00 <0.10 K/mcL LAB HEMETOLOGY METHOD 11/07/2024 11:17 AM EDT [facility] Blood Venous blood specimen / Unknown Venipuncture / Unknown 11/07/2024 8:03 AM EDT 11/07/2024 10:40 AM EDT Giovanni Coffey MD LAB BLOOD ORDERABLES Final Resul t Performing Organization Address City/[facility]/ZIP Co de Phone Number [facility] [address] [place] [address], [place] [phone] * (ABNORMAL) C-reactive protein (11/07/2024 8:03 AM EDT) C-Reactive Protein 0.97(H) <=0.50 mg/dL LAB CHEMISTRY METHOD 11/07/2024 11:56 AM EDT [facility] Blood Venous blood specimen / Unknown Venipuncture / Unknown 11/07/2024 8:03 AM EDT 11/07/2024 10:42 AM EDT Giovanni Coffey MD LAB BLOOD ORDERABLES Final Resul t Performing Organization Address City/[facility]/ZIP Co de Phone Number [facility] [address] [place] [address], [place] [phone] documented in this encounter Visit Diagnoses Diagnosis Essential (primary) hypertension Unspecified essential hypertension Hyperlipidemia, unspecified Unspecified osteoarthritis, unspecified site Encounter for other orthopedic aftercare documented in this encounter Care Teams Cartography Technician Relationship Specialty Start Date End Date Carlita Villegas MD [address] [place] [id number] PCP - General 08/25/22 documented as of this encounter
--- OUTSIDE RECORDS SUMMARY | 2024-11-10 08:30 | XMS_ITS | Data Portability ---
Author Organization [facility], Main Office Address [address] [facility] [place] [address] Care Team Providers Care Gas Furnace Installer Name Role Phone BRENDA GUZMAN - 2ND [...] Organization Details Recorded Time Hypertensiv e disorder 60004036 Active 2024 Estrellita Damico NP [address] [facility], [address], [place], [address], [facility] 5 10:05:42 Open reduction of fracture of radius Active 2024 Estrellita Damico NP [address] [facility], [address], [place], [address], [facility] 5 10:06:12 Fracture of radius 82204730 Active 2024 Estrellita Damico NP [address] [facility], [address], [place], [address], [facility] 5 10:06:50 Closed fracture of pubic ramus Active 2024 Estrellita Damico NP [address], [address], [place], [address], [facility] 5 10:07:14 Hyperlipide desiree 79679100 Active 2024 Estrellita Damico NP [address], [address], [place], [address], [facility] 5 10:07:30 At high risk for fall 6067100437207 70769 Active 2024 Estrellita Damico NP [address], [address], [place], [address], [facility] 5 10:07:56 Asthenia 35669571 Active 2024 Estrellita Damico NP [address], [address], [place], [address], [place] [facility] 5 10:08:03 Osteoporosi s 24344137 Active 2024 Estrellita Damico NP [address], [place], [address], [facility] 5 10:11:58 Problem Notes None recorded. Medical Equipment None Reported. Allergies Allergen ID Allergen Name Allergen Category Reaction Reaction Severity Criticality Documentation Date Start Date Code Code System Note Provider Name and Address Organization Details Recorded Time 66259 azithromy radha medicatio n other Not available unabletoasse 10/17/2024 70354 RxNorm upset stoma ch Not Available Not Available Not Available 74881 doxycycli ne Not available other Not available unabletoasse 10/17/2024 3640 RxNorm gi upset Not Available Not Available Not Available Medications Not known to be on any medication Vitals Date Recorded Body weight Heart rate Respiratory rate Systolic blood pressure Diastolic blood pressure Provider Name and Address Organization Details Last Updated DateTime 10/21/2024 40311.9 7 g 70 /min 18 /min 155 mm[Hg] 78 mm[Hg] Giovanni Coffey MD [address], [address], [place], [address], [facility] 5 14:25:01 Date Recorded Heart rate Respiratory rate Body temperature Oxygen saturation Oxygen saturation in Arterial blood by Pulse oximetry Systolic blood pressure Diastolic blood pressure Provider Name and Address Organization Details Last Updated DateTime 5 68 /min 18 /min 97.5 [degF] 96 % 96 % 155 mm[Hg] 78 mm[Hg] CRISTIANE MAN NP [address] [facility], [address], [place], [address], [facility] 5 13:32:24 Date Recorded Body weight Heart rate Respiratory rate Body temperature Oxygen saturation Oxygen saturation in Arterial blood by Pulse oximetry Systolic blood pressure Diastolic blood pressure Provider Name and Address Organization Details Last Updated DateTime 5 86538.9 7 g 88 /min 18 /min 97.7 [degF] 96 % 96 % 138 mm[Hg] 68 mm[Hg] Estrellita Damico NP [address] [facility], [address], [place], [address], [facility] 5 14:26:53 Date Recorded Heart rate Respiratory rate Body temperature Oxygen saturation Oxygen saturation in Arterial blood by Pulse oximetry Systolic blood pressure Diastolic blood pressure Provider Name and Address Organization Details Last Updated DateTime 5 74 /min 18 /min 98 [degF] 98 % 98 % 137 mm[Hg] 68 mm[Hg] CRISTIANE MAN NP [address] [facility], [address], [place], [address], [facility] 5 11:50:29 Date Recorded Body weight Heart rate Respiratory rate Body temperature Oxygen saturation Oxygen saturation in Arterial blood by Pulse oximetry Systolic blood pressure Diastolic blood pressure Provider Name and Address Organization Details Last Updated DateTime 5 56034.2 3 g 73 /min 18 /min 97.3 [degF] 95 % 95 % 116 mm[Hg] 63 mm[Hg] Estrellita Damico NP [address] [facility], [address], [place], [address], [facility] 5 09:33:11 Social History Question Answer Notes LastModified by Organization Details LastModified Time Tobacco Smoking Status Former Smoker smoked for one yr in her 20s Estrellita Damico NP [address] [facility], [facility] [address], [place], [address], [facility] 10/17/2024 10:30:23 Do You Have An [...] (COVID-19) vaccine, UNSPECIFIED 4 completed Valencia Yoo [facility] 10/17/2024 14:17:30 SARS-COV-2 (COVID-19) vaccine, UNSPECIFIED 1 completed Valencia Yoo [facility] 10/17/2024 14:17:52 SARS-COV-2 (COVID-19) vaccine, UNSPECIFIED 1 completed Valencia Fredo null, [facility] 10/17/2024 14:17:59 SARS-COV-2 (COVID-19) vaccine, UNSPECIFIED 1 completed Valencia Fredo null, [facility] 10/17/2024 14:18:07 SARS-COV-2 (COVID-19) vaccine, UNSPECIFIED 2 completed Valencia Fredo null, [facility] 10/17/2024 14:18:14 Td(adult) unspecified formulation 8 completed Valencia Fredo null, [facility] 10/17/2024 14:18:32 Pneumococcal conjugate PCV 13 6 [facility] 14:18:45 Pneumococcal conjugate PCV 13 2 completed [facility] 10/17/2024 14:18:53 pneumococcal polysaccharide PPV23 4 completed Valencia Fredo [facility] 10/17/2024 14:19:12 influenza, unspecified formulation 4 completed Valencia Fredo [facility] 10/17/2024 14:19:28 influenza, unspecified formulation 4 completed [facility] 10/17/2024 14:19:38 SARS-COV-2 (COVID-19) vaccine, UNSPECIFIED 1 completed [facility] 10/17/2024 14:19:51 SARS-COV-2 (COVID-19) vaccine, UNSPECIFIED 1 completed [facility] 10/17/2024 14:20:01 SARS-COV-2 (COVID-19) vaccine, UNSPECIFIED 1 completed [facility] 10/17/2024 14:20:09 SARS-COV-2 (COVID-19) vaccine, UNSPECIFIED 2 completed [facility] 10/17/2024 14:20:17 zoster, unspecified formulation 3 completed [facility] 10/17/2024 14:24:16 zoster, unspecified formulation 1 completed Valencia Yoo [facility] 10/17/2024 14:24:26 Past Encounters Encounter ID Performer Location Encounter Start Date Encounter Closed Date Diagnosis/Indication Diagnosis SNOMED-CT Code Diagnosis ICD10 Code Diagnosis Note [id number] Estrellita Damico NP [address] [address] [place] [address] 10/17/2024 09:25:54 10/20/2024 13:52:21 Closed fracture of pubic ramus 6061983877 S32.501D CT pelvis showed right superior pubic ramus and right sacral ala.She is NWB status to right lower extremity with wheelchair transfer'p ain control as belowneeds to fu with ortho in 2 weeks Fracture of radius 91320 007 S52.90XA sp mechanical fall dx with [...] 2 weeks with ortho Hypertensive disorder 38 405825 I10 with hx of htn with elevated bp controlled on losartan 50 mg po qd started in hospitalmo nitor vitals and for need to adjust Osteoporosis 00138632 M8 1.0 hx ofmulivita min qdcal carb bidbiotin qdmonitor Hyperlipidemia 62256786 E78.5 pravastati n 10mg po qdasa qdmonitor Insomnia 492566161 G47.0 0 pt with poor sleep overnight start melatoinin 10 mg po qhsmonitor At high risk for fall 45 13504660 17408032 Z91.89 pt with mechanical fallno assistive devicessup portive carept ot eval and treatmonit or Asthenia 22173621 R53.1 pt pt/ot eval and treatsuppo rtive caremonito r [id number] Giovanni Coffey MD [address] [address] 10/21/2024 14:23:49 10/22/2024 12:07:02 Drug-induced constipation 48464317 K59.03 add sennabowel protocolmo nitor for effect Closed fra cture of pubic ramus 6840141513 S32.501D see HPINWB till cleared by orthodiscu ssed with therapyupd ate with concernsmo nitor for pain controlf/u in place Fracture of radius 09295 007 S52.90XA s/p ORIFfollow ortho recs and update with concernsed divya improvedmo nitor for pain control Hypertensive disorder 38 964448 I10 currently onlosartan 50 mg qdmonitor need to titrate if remains elevated Hyperlipidemia 82598938 E78.5 pravastati n 10 mg po qdcontinue d Insomnia 602529917 G47.0 0 melatonin 10 mg po qhsmonitor for effect Asthenia 62629705 R53.1 therapy to followcoor dinate with ortho [id number] CRISTIANE MAN NP [facility] [address] 10/22/2024 10:45:58 10/24/2024 15:39:10 Closed fracture of pubic ramus 5426360429 S32.501D see HPINWB till cleared by orthoPT [...] q mond. x 3 Fracture of radius 27940 007 S52.90XA s/p ORIFNWBSof t cast and sling in place - continueCo ntinue pain meds as aboveMonit or VS, CSM, pain for changesfol low ortho recs and update with concerns Drug-induc ed constipation 35475896 K59.03 Still backed up.Encoura ging use of supp or fleets to get bowels moving ( its right there )D/C senna and colace, change to senna-plus 2 tabs daily, hold for loose stool.Add miralax dailyMaint ain fluidsMoni tor closely and continue to adjust tx. Hypertensive disorder 38 075813 I10 No recent VS - now ordered dailycurre ntly onlosartan 50 mg qdmonitor need to titrate if remains elevated Hyperlipidemia 49423982 E78.5 Continue pravastati n 10 mg po qdSl. elevation in LFTs - is on APAP as wellCMP q mond. x 3 Insomnia 215495988 G47.0 0 On melatonin 10 mg po [...] relaxation and sleep.mikey tor for effect Asthenia 33852634 R53.1 therapy to followcoor dinate with ortho [id number] Estrellita Damico NP [address] [address] 10/24/2024 14:25:11 10/27/2024 15:33:43 Closed fracture of pubic ramus 5130787808 S32.501D see HPINWB to RUE and RLE till cleared by orthoPT OT eval and txcomforta ble at present with pain regimenupd ate Ortho with concerns prnMonitor VS, pain, CSM for change. 10/24 dc ASA to 325 mg bid10/24 started on eliquis 10 mg po bid x 7 days and then 5mg po bid for DVTCBC, CMP q mond. x 3 Fracture of radius 82319 007 S52.90XA s/p ORIFNWB to RUEcontSof t cast and sling in placeConti nue pain meds as aboveMonit or VS, CSM, pain for changesfol low ortho recs and update with concerns prn Hypertensive disorder 38 297854 I10 stablecurr ently onlosartan 50 mg qdmonitor need to titrate if remains elevated Asthenia 32602952 R53.1 therapy to followcoor dinate with ortho Deep venou s thrombosis of lower extremity 867728618 I82.409 10/24 RLE DVTstart eliquis 10 mg po bid x 7days, then 5mgpo bidno s/s of decreased circulatio n to RLEmonitor cms, pain, vitals, bleeding [id number] CRISTIANE MAN NP [facility] [address] [address] 10/30/2024 09:30:35 11/03/2024 11:55:25 Deep venous thrombosis of lower extremity 739285099 I82.409 10/24 RLE DVTstarted eliquis 10 mg po bid x 7days, then 5mg po bidASA stoppedmon itor cms, pain, vitals, bleedingDu e for CBC in am Closed fra cture of pubic ramus 7784678801 S32.501D see HPINWB to RUE and RLE till cleared by orthoPT OT eval and txcomforta ble at present with pain regimenupd ate Ortho with concerns prnMonitor VS, pain, CSM for change.Ort ho follow up Tuesday 10/24 d/c'd ASA due to RLE DVT, now on eliquisCBC , CMP q . x 3 [place]ure of radius 37403 007 S52.90XA s/p ORIFNWB to RUEcontSof t cast and sling in placeConti nue pain meds as aboveMonit or VS, CSM, pain for changesfol low ortho recs and update with concerns prnOrtho follow up tomorrow. Hypertensive disorder 38 974066 I10 stablecurr ently onlosartan 50 mg qdmonitor need to titrate if remains elevated Asthenia 43980482 R53.1 therapy to followcoor dinate with ortho [id number] Estrellita Damico NP [facility] [address] 11/07/2024 09:32:31 11/07/2024 10:20:44 Deep venous thrombosis of lower extremity 089297216 I82.409 RLE DVTcont eliquis 5mg po bid, completed eliquis 10 mg po bid x 7days started on 10/24ASA stopped, now on eliquismon itor cms, pain, vitals, bleedingmo nitor labs Closed fra cture of pubic ramus 5732219005 S32.501D NWB to RUE and RLE till cleared by orthoPT OT eval and txcomforta ble at present with pain regimenupd ate Ortho with concerns prnMonitor VS, pain, CSM for change.Ort ho follow up Friday 11/10oxycodo ne and tyl sched10/24 d/c'd ASA due to RLE DVT, now on eliquisCBC , CMP q mond. x 3 Fracture of radius 60516 007 S52.90XA s/p ORIFNWB to RUEcontoxy codone and tylenol schedcast in placeConti nue pain meds as aboveMonit or VS, CSM, pain for changesfol low ortho recs and update with concerns prnOrtho follow up on 11/10 for hipnsg to get fu note from 10/31 for further rec Hypertensive disorder 38 733232 I10 stable 116/63curr ently onlosartan 50 mg qdmonitor need to titrate if remains elevated Asthenia 99060069 R53.1 therapy to followcoor dinate with ortho Dysuria 23110484 R30.0 co dysuria with urination and urgency for 1-2 days intermitte ntlyua obtained last nightfu with results Health Concerns Section Related Observation LastModified by Organization Detai ls LastModified Time None Recorded Concern Status LastModified by Organization Details LastModified Time None Recorded Advance Directives Directive N: Payers Encounter Date Sequence Insurance Name Policy Number Policy Celestin Covered Member ID Celestin Member ID Guarantor Name 10/21/2024 1 [place] PPO) [id number] Dayna Goldberg [id number] Dayna Goldberg 10/22/2024 1 [place]PO) [id number] Dayna Goldberg [id number] Dayna Goldberg 10/24/2024 1 [place]) [id number] Dayna Goldberg [id number] Dayna Goldberg 10/30/2024 1 [place]) [id number] Dayna Goldberg [id number] Dayna Goldberg 11/07/2024 1 [place]) [id number] Dayna Goldberg [id number] Dayna Goldberg Notes Date Note Type Note Provider Name and Address Organization Details Recorded Time 10/21/2024 text/html Patient is an 79 yo [...] therapy eval and treat Giovanni Coffey MD [address] [place] [address], [address], [place], [address], [facility] [employer] 10/21/2024 14:43:08 10/22/2024 text/html Dayna is seen [...] sleep med. PMH significant forhtnhldgait instability CRISTIANE MAN, JESS [address] [facility], [address], [place], [address], [facility] 10/22/2024 14:48:50 10/24/2024 text/html Dayna is a [...] f/u in place. Estrellita Damico NP [address] [facility], [address], [place], [address], [facility] 10/24/2024 14:45:29 10/30/2024 text/html [facility] She is an [...] HLD, Gait instability CRISTIANE MAN NP [address] [facility], [address], [place], [address], [employer] [facility] 10/30/2024 12:10:38 11/07/2024 text/html Pt is seen today for an acute rounding visit. PMH: HTN, HLD, Gait instability She is an 79 yo female who presented from hospital after mechanical fall. Imaging positive for fx distal right radius/ulna and right pubic ramus and sacral fx. Eval by ortho and underwent ORIF RUE. Discharge summary states NWB RLE and RUE until cleared by ortho with f/u in place. She was seen by ortho on on 10/31 and has purple cast in place with good cms to right hand and slight swelling to finger tips, will request ortho note from nursing. She reports she has a fu appt for her right hip on Friday 11/10. While here at rehab a BLE US checked, noted to have DVT in RLE with occlusive thrombus of right superfical femoral pain due to increased leg swelling. Due to risk of bleeding from recent pelvic fractures and radial fractures was sent to [facility] ER for evaluation. U/S done at [facility] showing similar results and started on eliquis 10 mg po bid x 7 days and then 5mg po daily thereafter. Dayna states she is having intermittent dysuria with urination and frequency. UA sent, awaiting results. No fever, chills, or CVA pain. On exam, Dayna is sitting up brushing her teeth and states her pain is a 6/10 when she tries to stand, but otherwise remains okay on current regimen and no pain without movement typically. She continues on scheduled tylenol and oxycodone. She states she would like to keep the pain medications the same for now. Her bilateral lower extremities without any swelling, inflammation, redness, or lesions. She denies any pain and has a negative homans sign. Estrellita Damico NP [address] [facility], [address], [place], [address], [facility] 11/07/2024 10:20:43 OBGyn Episode No OBEpisode recorded.
--- OUTSIDE RECORDS SUMMARY | 2024-11-10 08:30 | XMS_ITS | Data Portability ---
Author Organization [facility], [address] Address [address] [place] [address] Care Team Providers Care Fine Arts Model Name Role Phone DOLLY CHAN Primary Care Provider Assessment No assessment recorded. Plan of Treatment Reminders Order Date Submit Date Provider Last Modified By Organization Details Last Modified Time Details Appointments None recorded. Lab None recorded. Referral emergency medicine referral - Hypertensiv e crisis. need to rule out acute SC. [address] ([place]), [address] [place] [address], [id number], 3 15:16:57 Procedures None recorded. Surgeries None recorded. Imaging None recorded. Medication Orders polymyxin B sulfate 10,000 unit-trimet hoprim 1 mg/mL eye drops 2022 023 [facility][id number], [address] [place], [address], 3 15:02:44 Patient TargetsNo targets recorded. Patient Instructions Encounter Date Encounter Id Patient Instructions Last Modified By Organization Details Last Modified Time 08/25/2022 [id number] Apply warm, mois t compresses over closed [...] hypertensive crisis. need to rule out acute SC. Hypertensive crisis. need to rule out acute SC. Referring Physician: Enrico Galdamez, Urgent Care, Encounter Date: 08/25/2022 Problems Name Problem SNOMED Code Status Onset Date Resolution Date Notes Provider Name and Address Organization Details Recorded Time Osteoporosis 29933467 Active 2022 LORNE Watters [facility] 3 14:30:52 Hypertensive disorder 73818426 Active 2022 LORNE Watters [facility] 3 [...] Updated DateTime 3 160.02 cm 25.3 kg/m2 85752.7 1 g 96 % 96 % 65 [...] 30 mcg/0.3 mL dose 1 completed Aviva Klemme null, PA - [facility] 08/25/2022 14:30:37 zoster live 3 completed Aviva Klemme null, PA - [facility] 08/25/2022 14:30:38 Influenza, adjuvanted, trivalent, PF 8 completed Aviva Litzy null, PA - [facility] 08/25/2022 14:30:38 Pneumococcal conjugate PCV 13 6 completed Aviva Klemme null, PA - [facility] 08/25/2022 14:30:38 Influenza, split virus, trivalent, PF 6 completed Aviva Klemme null, PA - [facility] 08/25/2022 14:30:38 Influenza, split virus, trivalent, preservative 0 completed Aviva Litzy null, PA - [facility] 08/25/2022 14:30:38 Influenza, high-dose, trivalent, PF 9 completed Aviva Litzy null, PA - [facility] 08/25/2022 14:30:38 Pneumococcal conjugate PCV20, polysaccharide MYR508 conjugate, adjuvant, PF 2 completed Aviva Lizty null, PA - [facility] 08/25/2022 14:30:38 zoster recombinant 1 completed Aviva Litzy null, PA - [facility] 08/25/2022 14:30:38 pneumococcal polysaccharide PPV23 4 completed Aviva Klemme null, PA - [facility] 08/25/2022 14:30:38 Influenza, high-dose, trivalent, PF 7 completed Aviva Klemme null, PA - [facility] 08/25/2022 14:30:38 [...] SNOMED-CT Code Diagnosis ICD10 Code Diagnosis Note [id number] [address] [place] [address] 09/15/2020 10:30:46 09/15/2020 12:24:20 [id number] [address] [place] [address] 04/23/2021 09:58:30 04/23/2021 12:42:40 [id number] Enrico Galdamez, [facility] [address] [place] [address] 08/25/2022 13:36:13 08/25/2022 15:10:22 Acute conjunctivitis of right eye [id number] 43369 H10.31 Hypertensive crisis 7068 77132 I16.9 Health Concerns Section Related Observation LastModified by Organization Detai ls LastModified Time None Recorded Concern Status LastModified by Organization Details LastModified Time None Recorded Advance Directives Directive None Recorded Payers Encounter Date Sequence Insurance Name Policy Number Policy Celestin Covered Member ID Celestin Member ID Guarantor Name 09/15/2020 1 [employer] MED[employer]ARE ADVANTAGE PLAN (MEDICARE REPLACEMENT HMO) [id number] Dayna Goldberg [id number] Dayna Goldberg 04/23/2021 1 [employer]VANTAGE PLAN (MEDICARE REPLACEMENT HMO) [id number] Dayna Goldberg [id number] Dayna Goldberg 08/25/2022 1 [employer] MEDIC[employer]VANTAGE PLAN (MEDICARE REPLACEMENT HMO) [id number] Dayna Goldberg [id number] Dayna Kulik Notes Date Note Type Note Provider Name and Address Organization Details Recorded Time 08/25/2022 text/html Eye problemsRepo rted bypatient.Notes:right eye redness more then left with yellow discharge. Also patient is hypertensive WP=505/120mmhg. Enrico Galdamez NP [address] [place], [address], [place] - [facility] 08/25/2022 15:08:45 OBGyn Episode No OBEpisode recorded.
--- OUTSIDE RECORDS SUMMARY | 2024-11-10 08:31 | XMS_ITS | Encounter Summary ---
Author Organization [facility] Address [address] [place] [address] Care Team Providers Care Amusement Centre Manager Name Role Phone Carlita Villegas MD Primary Care Provider [phone] Encounter Details Date Type Department Care Team (Late Contact Info) Description 10/27/2024 Lab Requisition [facility] - Main Lab [address] [facility] [place] [address] Giovanni Coffey MD [address] [place] [address], [phone] Essential (primary) hypertension; Hyperlipidemia, unspecified Social [...] 10:00 AM EST Office Visit Endocrinology - [place] [address] [place] [address] Gisell Villegas PA [address] [place] [address] 08/26/2025 10:00 AM EST Office Visit Vascular Surgery - [place] [address] [place] [address] Priya Lopez MD [address] [place] [address] documented as of this encounter Procedures Procedure [...] mmol/L LAB CHEMISTRY METHOD 10/27/2024 12:56 PM [facility] Potassium 4.9 3.5 - 5.5 mmol/L LAB CHEMISTRY METHOD 10/27/2024 12:56 PM [facility] Comment:Hemolysis present Chloride 104 96 - 110 mmol/L LAB CHEMISTRY METHOD 10/27/2024 12:56 PM [facility] CO2 25 21 - 32 mmol/L LAB CHEMISTRY METHOD 10/27/2024 12:56 PM [facility] Anion Gap 8 3 - 11 LAB CHEMISTRY METHOD 10/27/2024 12:56 PM [facility] Glucose 80 70 - 100 mg/dL LAB CHEMISTRY METHOD 10/27/2024 12:56 PM [facility] BUN 18 5 - 25 mg/dL LAB CHEMISTRY METHOD 10/27/2024 12:56 PM [facility] Creatinine 0.69 0.50 - 1.10 mg/dL LAB CHEMISTRY METHOD 10/27/2024 12:56 PM [facility] eGFR 88 >=60 mL/min/1. 73m2 LAB CHEMISTRY METHOD 10/27/2024 12:56 PM EDT [facility] Comment:Calculation based on the??Chronic Kidney Disease Epidemiology Collaboration (CKD-EPI) equation refit??without adjustment for race. BUN/Creatinine Ratio 26.1 LAB CHEMISTRY METHOD 10/27/2024 12:56 PM EDT [facility] Calcium 8.9 8.5 - 10.5 mg/dL LAB CHEMISTRY METHOD 10/27/2024 12:56 PM T [facility] AST (SGOT) 67(H) 10 - 42 unit/L LAB CHEMISTRY METHOD 10/27/2024 12:56 PM [facility] Comment:Hemolysis present ALT (SGPT) 73(H) 10 - 60 unit/L LAB CHEMISTRY METHOD 10/27/2024 12:56 PM [facility] Alkaline Phosphatase 188(H) 42 - 121 unit/L LAB CHEMISTRY METHOD 10/27/2024 12:56 PM [facility] Total Protein 6.9 6.0 - 8.0 g/dL LAB CHEMISTRY METHOD 10/27/2024 12:56 PM [facility] Albumin 3.1(L) 3.2 - 5.0 g/dL LAB CHEMISTRY METHOD 10/27/2024 12:56 PM [facility] Total Bilirubin 0.5 0.0 - 1.4 mg/dL LAB CHEMISTRY METHOD 10/27/2024 12:56 PM T [facility] Blood Venous blood specimen / Unknown Venipuncture / Unknown 10/27/2024 6:25 AM EDT 10/27/2024 10:32 AM EDT us Giovanni Coffey MD LAB BLOOD ORDERABLES Final Resul t [facility] [address] [place] [address], * Complete blood count (10/27/2024 6:25 AM EDT) [facility] WBC 5.0 4.8 - 10.8 K/mcL LAB HEMETOLOGY METHOD 10/27/2024 11:30 AM [facility] RBC 3.80 3.80 - 4.80 M/mcL LAB HEMETOLOGY METHOD 10/27/2024 11:30 AM [facility] Hemoglobin 12.0 11.5 - 16.0 g/dL LAB HEMETOLOGY METHOD 10/27/2024 11:30 AM [facility] Hematocrit 36.9 35.0 - 47.0 % LAB HEMETOLOGY METHOD 10/27/2024 11:30 AM [facility] MCV 97.9 79.0 - 98.0 FL LAB HEMETOLOGY METHOD 10/27/2024 11:30 AM [facility] MCH 31.8 27.0 - 32.0 pcg LAB HEMETOLOGY METHOD 10/27/2024 11:30 AM [facility] MCHC 32.5 32.0 - 37.0 g/dL LAB HEMETOLOGY METHOD 10/27/2024 11:30 AM [facility] RDW 13.3 11.0 - 15.0 % LAB HEMETOLOGY METHOD 10/27/2024 11:30 AM [facility] Platelets 293 130 - 400 K/mcL LAB HEMETOLOGY METHOD 10/27/2024 11:30 AM [facility] MPV 11.0 7.0 - 11.0 FL LAB HEMETOLOGY METHOD 10/27/2024 11:30 AM [facility] NRBC 0.0 <1.0 % LAB HEMETOLOGY METHOD 10/27/2024 11:30 AM [facility] NRBC Absolute 0.00 <0.10 K/mcL LAB HEMETOLOGY METHOD 10/27/2024 11:30 AM EDT [facility] Blood Venous blood specimen / Unknown Venipuncture / Unknown 10/27/2024 6:25 AM EDT 10/27/2024 10:32 AM EDT us Giovanni Coffey MD LAB BLOOD ORDERABLES Final Resul t [facility] [address] [place] [address], documented in this encounter Visit Diagnoses Diagnosis Essential (primary) hypertension Unspecified essential hypertension Hyperlipidemia, unspecified documented in this encounter Care Teams Amusement Centre Manager Relationship Specialty Start Date End Date Carlita Villegas MD [address] [place] [id number] PCP - General 08/25/22 documented as of this encounter
--- OUTSIDE RECORDS SUMMARY | 2024-11-10 08:31 | XMS_ITS | Clinical Summary ---
Author Organization [facility] Address [address] [place] [address] Phone Care Team Providers Care Xray Tech Name Role Phone Carlita Villegas MD Primary Care Provider [phone] Allergies Active Allergy Reactions Criticality Noted Date [...] Encounters Date Type Department Care Team Description 11/09/[address] [facility] [address] [facility] [place] [address] Giovanni Coffey MD Essential (primary) hypertension; Hyperlipidemia, unspecified 11/07/[address] [facility] [address] [place] [address] Giovanni Coffey MD Essential (primary) hypertension 11/06/[address] [facility] [address] [place] [address] Giovanni Coffey MD Essential (primary) hypertension; Hyperlipidemia, unspecified; Unspecified osteoarthritis, unspecified site; Encounter for other orthopedic aftercare 11/01/[address] [facility] [address] [place] [address] Giovanni Coffey MD Essential (primary) hypertension; Hyperlipidemia, unspecified 10/30/[address] [facility] [address] [place] [address] Giovanni Coffey MD Essential (primary) hypertension; Hyperlipidemia, unspecified; Unspecified osteoarthritis, unspecified site; Encounter for other orthopedic aftercare 10/27/[address] [facility] [address] [place] [address] Giovanni Coffey MD Essential (primary) hypertension; Hyperlipidemia, unspecified 10/23/[address] [facility] [address] [place] [address] Giovanni Coffey MD Essential (primary) hypertension; Hyperlipidemia, unspecified; Unspecified osteoarthritis, unspecified site; Encounter for other orthopedic aftercare 10/17/[address] [facility] [address] [place] [address] Giovanni Coffey MD Essential (primary) hypertension; Hyperlipidemia, unspecified 10/17/[address] [address] Lisandro Cohen [place] prolia info needed 10/14/2024 Telephone Adult Medicine [address] [address] Carlita Villegas MD 08/15/2024 9:00 AM EST - 08/15/2024 11:59 PM EST Hospital Encounter Radiology Department - [address] [address] Encounter for screening mammogram for breast cancer Discharge Disposition: Home or Self Care 08/13/2024 9:00 AM EST Office Visit Vascular Surgery - [place] [address] [place] [address] Priya Lopez MD Asymptomatic bilateral carotid artery stenosis (Primary Dx) from Last 3 Months Immunizations Name Administration [...] COMMENT: bleeding COLONOSCOPY W/ BIOPSIES 04/07/2010 PROCEDURE: MO COLONOSCOPY STOMA W/BIOPSY SINGLE/MULTIPLE; COMMENT: Up to cecum, good preparation, 15mm polyp at ascending partially removed:tubular adenoma, transverse colon polyp removed.:ulcerated inflammatory polyp COLONOSCOPY 03/20/2012 PROCEDURE: MO COLONOSCOPY FLX DX W/COLLJ SPEC WHEN PFRMD; COMMENT: normal to mid right colon, very difficult exam. BREAST SURGERY 08/06/1986 Left PROCEDURE: MO UNLISTED PROCEDURE BREAST; COMMENT: benign Medical History [...] 06/17/2025 10:00 AM EST Office Visit Endocrinology [facility] [place] [address] [place] [address] Gisell Villegas PA [address] [place] [address] 08/26/2025 10:00 AM EST Office Visit Vascular Surgery - [place] [address] [place] [address] Priya Lopez MD [address] [place] [address] Health Maintenance Due Date Last Done Comments RSV Immunization Adult Patients (1 - 1-dose 75+ series) 2019 Zoster Vaccines (3 of 3) 07/26/2021 05/31/2021, 03/06 Colorectal Cancer Screening: Colonoscopy 07/15/2022 05/08/2017 Depression Screening 07/15/2022 Falls Risk Assessment 07/15/2022 Medicare Annual Wellness Visit 07/15/2022 Social Influencers of Health Screening 07/15/2022 Hypertension/CHF/CAD Annual BMP Blood Test 11/07/2025 11/07/2024, 11/03/2024, 10/31/2024, Additional history exists DTaP,Tdap,and Td Vaccines (2 [...] Associated Diagnosis Comments COMPREHENSIVE METABOLIC PANEL Routine 11/07/2024 8:03 AM EDT Essential (primary) hypertension Hyperlipidemia, unspecified Unspecified osteoarthritis, unspecified site Encounter for other orthopedic aftercare COMPLETE BLOOD COUNT Routine 11/07/2024 8:03 AM EDT Essential (primary) hypertension Hyperlipidemia, unspecified Unspecified osteoarthritis, unspecified site Encounter for other orthopedic aftercare C-REACTIVE PROTEIN Routine 11/07/2024 8: 03 AM EDT Essential (primary) hypertension Hyperlipidemia, unspecified Unspecified osteoarthritis, unspecified site Encounter for other orthopedic aftercare URINALYSIS WITH REFLEX MICROSCOPIC Routine 11/06/2024 9:28 PM EDT Essential (primary) hypertension URINALYSIS WITH REFLEX MICROSCOPIC Routine 11/06/2024 9:28 PM EDT Essential (primary) hypertension CULTURE URINE Routine 11/06/2024 9:28 PM EDT Essential (primary) hypertension COMPREHENSIVE METABOLIC PANEL Routine 11/03/2024 5:42 AM [...] EDT Age-related osteoporosis without current pathological fracture HM COLONOSCOPY Routine 05/08/2017 from Last 3 Months or Most Recently Relevant to Health Maintenance Results * (ABNORMAL) Complete blood count (11/07/2024 8:03 AM EDT) Only the most recent of6 resultswithin the time period is included. [facility] Signature WBC 4.9 4.8 - 10.8 K/[facility] LAB HEMETOLOGY METHOD 11/07/2024 11:17 AM EDT [facility] RBC 3.70(L) 3.80 - 4.80 M/mcL LAB HEMETOLOGY METHOD 11/07/2024 11:[address] [facility] Hemoglobin 11.5 11.5 - 16.0 g/dL LAB HEMETOLOGY METHOD 11/07/2024 11:[address] [facility] Hematocrit 35.7 35.0 - 47.0 % LAB HEMETOLOGY METHOD 11/07/2024 11:[address] [facility] MCV 96.7 79.0 - 98.0 FL LAB HEMETOLOGY METHOD 11/07/2024 11:[address] [facility] MCH 31.2 27.0 - 32.0 pcg LAB HEMETOLOGY METHOD 11/07/2024 11:[address] [facility] MCHC 32.2 32.0 - 37.0 g/dL LAB HEMETOLOGY METHOD 11/07/2024 11:[address] [facility] RDW 13.4 11.0 - 15.0 % LAB HEMETOLOGY METHOD 11/07/2024 11:[address] [facility] Platelets 222 130 - 400 K/mcL LAB HEMETOLOGY METHOD 11/07/2024 11:[address] [facility] MPV 10.4 7.0 - 11.0 FL LAB HEMETOLOGY METHOD 11/07/2024 11:[address] [facility] NRBC 0.0 <1.0 % LAB HEMETOLOGY METHOD 11/07/2024 11:[address] [facility] NRBC Absolute 0.00 <0.10 K/mcL LAB HEMETOLOGY METHOD 11/07/2024 11:[address] [facility] Blood Venous blood specimen / Unknown Venipuncture / Unknown 11/07/2024 8:03 AM EDT 11/07/2024 10:40 AM EDT us Giovanni Coffey MD LAB BLOOD ORDERABLES Final Resul t Performing Organization Address City/[facility]/ZIP Co de Phone Number [facility] [address] [place] [address], [place] [phone] * (ABNORMAL) C-reactive protein (11/07/2024 8:03 AM EDT) Only the most recent of4 resultswithin the time period is included. [facility] C-Reactive Protein 0.97(H) <=0.50 mg/dL LAB CHEMISTRY METHOD 11/07/2024 11:56 AM EDT [facility] Blood Venous blood specimen / Unknown Venipuncture / Unknown 11/07/2024 8:03 AM EDT 11/07/2024 10:42 AM EDT us Giovanni Coffey MD LAB BLOOD ORDERABLES Final Resul t Performing Organization Address [facility] de Phone Number [facility] [address] [place] [address], [place] [phone] * (ABNORMAL) Comprehensive metabolic panel (11/07/2024 8:03 AM EDT) Only the most recent of6 resultswithin the time period is included. [facility] Sodium 139 133 - 145 mmol/L LAB CHEMISTRY METHOD 11/07/2024 11:58 AM EDT [facility] Potassium 4.0 3.5 - 5.5 mmol/L LAB CHEMISTRY METHOD 11/07/2024 11:58 AM EDT [facility] Chloride 105 96 - 110 mmol/L LAB CHEMISTRY METHOD 11/07/2024 11:58 AM EDT [facility] CO2 28 21 - 32 mmol/L LAB CHEMISTRY METHOD 11/07/2024 11:58 AM EDT [facility] Anion Gap 6 3 - 11 LAB CHEMISTRY METHOD 11/07/2024 11:58 AM EDT [facility] Glucose 86 70 - 100 mg/dL LAB CHEMISTRY METHOD 11/07/2024 11:[address] [facility] BUN 15 5 - 25 mg/dL LAB CHEMISTRY METHOD 11/07/2024 11:[address] [facility] Creatinine 0.62 0.50 - 1.10 mg/dL LAB CHEMISTRY METHOD 11/07/2024 11:[address] [facility] eGFR 90 >=60 mL/min/1. 73m2 LAB CHEMISTRY METHOD 11/07/2024 11:[address] [facility] Comment:Calculation based on the??Chronic Kidney Disease Epidemiology Collaboration (CKD-EPI) equation refit??without adjustment for race. BUN/Creatinine Ratio 24.2 LAB CHEMISTRY METHOD 11/07/2024 11:[address] [facility] Calcium 9.1 8.5 - 10.5 mg/dL LAB CHEMISTRY METHOD 11/07/2024 11:[address] [facility] AST (SGOT) 21 10 - 42 unit/L LAB CHEMISTRY METHOD 11/07/2024 11:[address] [facility] ALT (SGPT) 31 10 - 60 unit/L LAB CHEMISTRY METHOD 11/07/2024 11:[address] [facility] Alkaline Phosphatase 152(H) 42 - 121 unit/L LAB CHEMISTRY METHOD 11/07/2024 11:[address] [facility] Total Protein 6.8 6.0 - 8.0 g/dL LAB CHEMISTRY METHOD 11/07/2024 11:[address] [facility] Albumin 3.3 3.2 - 5.0 g/dL LAB CHEMISTRY METHOD 11/07/2024 11:[address] [facility] Total Bilirubin 0.5 0.0 - 1.4 mg/dL LAB CHEMISTRY METHOD 11/07/2024 11:[address] [facility] Blood Venous blood specimen / Unknown Venipuncture / Unknown 11/07/2024 8:03 AM EDT 11/07/2024 10:42 AM EDT us Giovanni Coffey MD LAB BLOOD ORDERABLES Final Resul t [facility] [address] [place] [address], [place] [phone] * (ABNORMAL) Urinalysis with reflex microscopic (11/06/2024 9:28 PM EDT) Pathologist [facility] [place] Urine 1.014 1.003 - 1.030 LAB URINALYSIS - AUTOMATED METHOD 11/07/2024 11:[address] [facility] pH, Urine 6.0 5.0 - 8.0 pH LAB URINALYSIS - AUTOMATED METHOD 11/07/2024 11:[address] [facility] Leukocytes, Urine Large(A) Negative LAB URINALYSIS - AUTOMATED METHOD 11/07/2024 11:[address] [facility] Nitrite, Urine Positive(A) Negative LAB URINALYSIS - AUTOMATED METHOD 11/07/2024 11:[address] [facility] Protein, Urine 30(A) <=Trace mg/dL LAB URINALYSIS - AUTOMATED METHOD 11/07/2024 11:[address] [facility] Glucose, Urine Negative Negative mg/dL LAB URINALYSIS - AUTOMATED METHOD 11/07/2024 11:[address] [facility] Ketones, Urine Negative Negative mg/dL LAB URINALYSIS - AUTOMATED METHOD 11/07/2024 11:[address] [facility] Urobilinogen , Urine 0.2 0.2 - 1.0 mg/dL LAB URINALYSIS - AUTOMATED METHOD 11/07/2024 11:[address] [facility] Bilirubin, Urine Negative Negative LAB URINALYSIS - AUTOMATED METHOD 11/07/2024 11:[address] [facility] Blood, Urine Large(A) Negative LAB URINALYSIS - AUTOMATED METHOD 11/07/2024 11:48 AM EDT [facility] RBC, Urine 7.7(H) 0 - 4 /HPF LAB URINALYSIS - AUTOMATED METHOD 11/07/2024 11:48 AM EDT [facility] WBC, Urine 357.6(H) 0 - 4 /HPF LAB URINALYSIS - AUTOMATED METHOD 11/07/2024 11:48 AM EDT [facility] Squamous Epithelial, Urine 12 0 - 60 /LPF LAB URINALYSIS - AUTOMATED METHOD 11/07/2024 11:48 AM EDT [facility] Bacteria, Urine Many(A) Negative /HPF LAB URINALYSIS - AUTOMATED METHOD [facility]07[facility] Hyaline Casts, Urine 0.4 0 - 3 /LPF LAB URINALYSIS - AUTOMATED METHOD 11/07/2024 11:48 AM T [facility] Urine Urine specimen from urethra / Unknown Non-blood Collection / Unknown 11/06/2024 9:28 PM EDT 11/07/2024 10:51 AM EDT us Giovanni Coffey MD LAB URINE ORDERABLES Final Resul t [facility] [address] [place] [address], * (ABNORMAL) Culture urine (11/06/2024 9:28 PM EDT) Culture, Urine >100,000 CFU/mL Escherichia coli(A) DANO 11/09/2024 9:22 AM EDT [facility] Urine Urine specimen from urethra / [...] Escherichia coli Trimethoprim/Sulfamethoxazole DANO <=20 ug/ml: Susceptible Giovanni Coffey MD LAB MICROBIOLOGY - GENERAL ORDER ERWIN Final Result [facility] [address] [place] [address], [place] [phone] * External Vascular Ultrasound (10/23/2024) Only the most recent of4 resultswithin the time period is included. Anatomical Region Laterality Modality Ultrasound Provider [facility] CV VASCULAR PROCEDURES F inal Result * Lipid panel with reflex to direct LDL (10/17/2024 8:47 AM EDT) Cholesterol 173 0 - 200 mg/dL LAB CHEMISTRY METHOD 10/17/2024 11:42 AM EDT [facility] Triglycerides 101 0 - 150 mg/dL LAB CHEMISTRY METHOD 10/17/2024 11:42 AM EDT [facility] HDL 55 >=40 mg/dL LAB CHEMISTRY METHOD 10/17/2024 11:42 AM EDT [facility] LDL Calculated 98 0 - 100 mg/dL LAB CHEMISTRY METHOD 10/17/2024 11:42 AM EDT [facility] VLDL Cholesterol Waldemar 20.2 mg/dL LAB CHEMISTRY METHOD 10/17/2024 11:42 AM EDT [facility] Non HDL Chol. (LDL+VLDL) 118 <145 mg/dL LAB CHEMISTRY METHOD 10/17/2024 11:42 AM EDT [facility] Chol/HDL Ratio 3.1 0.0 - 4.4 LAB CHEMISTRY METHOD 10/17/2024 11:42 AM EDT [facility] Blood Venous blood specimen / Unknown Venipuncture / Unknown 10/17/2024 8:47 AM EDT 10/17/2024 10:31 AM EDT Giovanni Coffey MD LAB BLOOD ORDERABLES Final Resul t [facility] [address] [place] [address], [place] [phone] * External Xray Report (10/13/2024) Only the [...] is recommended in 1 year. MAMMO LOCATION: [facility], [address] [place] [address], [address], . -------- FINAL REPORT -------- Dictated By: Karina Chang Dictated Date: 08/15/2024 17:16 ET Assigned Physician: Karina Chang Reviewed and Electronically Signed By: Karina Chang Signed Date: 08/15/2024 17:19 ET Workstation ID: [id number] Transcribed By: Self Edit Transcribed Date: 08/15/2024 [...] is recommended in 1 year. MAMMO LOCATION: [facility], [address] [place] [address], [address], . -------- FINAL REPORT -------- Dictated By: Karina Chang Dictated Date: 08/15/2024 17:16 ET Assigned Physician: Karina Chang Reviewed and Electronically Signed By: Karina Chang Signed Date: 08/15/2024 17:19 ET Workstation ID: [id number] Transcribed By: Self Edit Transcribed Date: 08/15/2024 [...] IMPRESSION: ?? Osteoporosis by WHO criteria. [facility] Department of Internal Medicine recommends using National [...] alternative screening schedule based on may Amaya., [facility] August 24, 2011 for patients with [...] IMPRESSION: IMPRESSION: Osteoporosis by WHO criteria. The [facility] Department of Internal Medicine recommendsusing National Osteoporosis [...] alternative screening schedule based on may Amaya., NEJMJanuary 2011 for patients with osteopenia (based on [...] Most Recently Relevant to Health Maintenance Insurance [facility] MEDICARE ADVANTAGE [employer] [place] MEDICARE ADVANTAGE MEDICARE [facility] Care Teams Xray Tech Relationship Specialty Start Date End Date Carlita Villegas MD [address] [place] [id number] PCP - General 08/25/22
--- OUTSIDE RECORDS SUMMARY | 2024-11-10 08:31 | XMS_ITS | Encounter Summary ---
Author Organization [facility] Address [address] [place] [address] Care Team Providers Care Model And Dye Person Name Role Phone Carlita Villegas MD Primary Care Provider [phone] Encounter Details Date Type Department Care Team (Late st Contact Info) Description 10/23/2024 Lab Requisition [facility] - Main Lab [address] [facility] [address] Giovanni Coffey MD [address] [place] [phone] Essential (primary) hypertension; Hyperlipidemia, unspecified; Unspecified [...] 10:00 AM EST Office Visit Endocrinology - [place] [address] [place], [place] [phone] Gisell Villegas PA [address] [place], [place] 08/26/2025 10:00 AM EST Office Visit Vascular Surgery - [place] [phone] Priya Lopez MD [phone] documented as of this encounter Procedures Procedure [...] mmol/L LAB CHEMISTRY METHOD 10/24/2024 11:18 AM [facility] Potassium 4.6 3.5 - 5.5 mmol/L LAB CHEMISTRY METHOD 10/24/2024 11:18 AM [facility] Chloride 106 96 - 110 mmol/L LAB CHEMISTRY METHOD 10/24/2024 11:18 AM [facility] CO2 28 21 - 32 mmol/L LAB CHEMISTRY METHOD 10/24/2024 11:18 AM [facility] Anion Gap 5 3 - 11 LAB CHEMISTRY METHOD 10/24/2024 11:18 AM [facility] Glucose 84 70 - 100 mg/dL LAB CHEMISTRY METHOD 10/24/2024 11:18 AM [facility] BUN 19 5 - 25 mg/dL LAB CHEMISTRY METHOD 10/24/2024 11:18 AM [facility] Creatinine 0.72 0.50 - 1.10 mg/dL LAB CHEMISTRY METHOD 10/24/2024 11:18 AM [facility] eGFR 85 >=60 mL/min/1. 73m2 LAB CHEMISTRY METHOD 10/24/2024 11:18 AM [facility] Comment:Calculation based on the??Chronic Kidney Disease Epidemiology Collaboration (CKD-EPI) equation refit??without adjustment for race. BUN/Creatinine Ratio 26.4 LAB CHEMISTRY METHOD 10/24/2024 11:18 AM [facility] Calcium 8.6 8.5 - 10.5 mg/dL LAB CHEMISTRY METHOD 10/24/2024 11:18 AM [facility] AST (SGOT) 62(H) 10 - 42 unit/L LAB CHEMISTRY METHOD 10/24/2024 11:18 AM [facility] ALT (SGPT) 91(H) 10 - 60 unit/L LAB CHEMISTRY METHOD 10/24/2024 11:18 AM [facility] Alkaline Phosphatase 156(H) 42 - 121 unit/L LAB CHEMISTRY METHOD 10/24/2024 11:18 AM [facility] Total Protein 6.4 6.0 - 8.0 g/dL LAB CHEMISTRY METHOD 10/24/2024 11:18 AM [facility] Albumin 2.9(L) 3.2 - 5.0 g/dL LAB CHEMISTRY METHOD 10/24/2024 11:18 AM [facility] Total Bilirubin 0.5 0.0 - 1.4 mg/dL LAB CHEMISTRY METHOD 10/24/2024 11:18 AM [facility] Blood Venous blood specimen / Unknown Venipuncture / Unknown 10/24/2024 5:10 AM EDT 10/24/2024 9:54 AM EDT us Giovanni Coffey MD LAB BLOOD ORDERABLES Final Resul t [facility] [address] [place] [address], * (ABNORMAL) Complete blood count (10/24/2024 5:10 AM EDT) WBC 5.1 4.8 - 10.8 K/mcL LAB HEMETOLOGY METHOD 10/24/2024 10:04 AM EDT [facility] RBC 3.50(L) 3.80 - 4.80 M/mcL LAB HEMETOLOGY METHOD 10/24/2024 10:04 AM EDT [facility] Hemoglobin 10.9(L) 11.5 - 16.0 g/dL LAB HEMETOLOGY METHOD 10/24/2024 10:04 AM T [facility] Hematocrit 34.2(L) 35.0 - 47.0 % LAB HEMETOLOGY METHOD 10/24/2024 10:[facility] MCV 98.6(H) 79.0 - 98.0 FL LAB HEMETOLOGY METHOD 10/24/2024 10:04 [facility] MCH 31.4 27.0 - 32.0 pcg LAB HEMETOLOGY METHOD 10/24/2024 10:04 AM EDT [facility] MCHC 31.9(L) 32.0 - 37.0 g/dL LAB HEMETOLOGY METHOD 10/24/2024 10:04 AM [facility] RDW 13.4 11.0 - 15.0 % LAB HEMETOLOGY METHOD 10/24/2024 10:04 AM [facility] Platelets 253 130 - 400 K/mcL LAB HEMETOLOGY METHOD 10/24/2024 10:04 AM [facility] MPV 10.7 7.0 - 11.0 FL LAB HEMETOLOGY METHOD 10/24/2024 10:04 AM EDT [facility] NRBC 0.0 <1.0 % LAB HEMETOLOGY METHOD 10/24/2024 10:04 AM EDT [facility] NRBC Absolute 0.00 <0.10 K/mcL LAB HEMETOLOGY METHOD 10/24/2024 10:04 AM EDT [facility] Blood Venous blood specimen / Unknown Venipuncture / Unknown 10/24/2024 5:10 AM EDT 10/24/2024 9:54 AM EDT us Giovanni Coffey MD LAB BLOOD ORDERABLES Final Resul t Performing Organization Address City/[facility]/ZIP Co de Phone Number [facility] [address] [place] [address], [place] [phone] * (ABNORMAL) C-reactive protein (10/24/2024 5:10 AM EDT) C-Reactive Protein 1.44(H) <=0.50 mg/dL LAB CHEMISTRY METHOD 10/24/2024 11:18 AM EDT [facility] Blood Venous blood specimen / Unknown Venipuncture / Unknown 10/24/2024 5:10 AM EDT 10/24/2024 9:54 AM EDT us Giovanni Coffey MD LAB BLOOD ORDERABLES Final Resul t Performing Organization Address City/[facility]/ZIP Co de Phone Number [facility] [address] [place] [address], [place] [phone] documented in this encounter Visit Diagnoses Diagnosis Essential (primary) hypertension Unspecified essential hypertension Hyperlipidemia, unspecified Unspecified osteoarthritis, unspecified site Encounter for other orthopedic aftercare documented in this encounter Care Teams Model And Dye Person Relationship Specialty Start Date End Date Carlita Villegas MD [address] [place] [phone] PCP - General 08/25/22 documented as of this encounter
--- OUTSIDE RECORDS SUMMARY | 2024-11-10 08:31 | XMS_ITS | Encounter Summary ---
Author Organization [facility] Address [address] [place] [address] Care Team Providers Care Executive Receptionist Name Role Phone Carlita Villegas MD Primary Care Provider [phone] Encounter Details Date Type Department Care Team (Late st Contact Info) Description 10/30/2024 Lab Requisition [facility] - Main Lab [address] [facility] [place] [address] Giovanni Cofefy MD [address] [place] [address], [phone] Essential (primary) hypertension; Hyperlipidemia, unspecified; Unspecified [...] 10:00 AM EST Office Visit Endocrinology - [place] [address], [place] [phone] Gisell Villegas PA [address], [place] 08/26/2025 10:00 AM EST Office Visit Vascular Surgery - [place] [address] [place] [address] Priya Lopez MD [address] [place] [address] documented as of this encounter Procedures Procedure [...] mmol/L LAB CHEMISTRY METHOD 10/31/2024 12:31 PM [facility] Potassium 4.3 3.5 - 5.5 mmol/L LAB CHEMISTRY METHOD 10/31/2024 12:31 PM [facility] Chloride 104 96 - 110 mmol/L LAB CHEMISTRY METHOD 10/31/2024 12:31 PM [facility] CO2 30 21 - 32 mmol/L LAB CHEMISTRY METHOD 10/31/2024 12:31 PM [facility] Anion Gap 4 3 - 11 LAB CHEMISTRY METHOD 10/31/2024 12:31 PM [facility] Glucose 122(H) 70 - 100 mg/dL LAB CHEMISTRY METHOD 10/31/2024 12:31 PM [facility] BUN 17 5 - 25 mg/dL LAB CHEMISTRY METHOD 10/31/2024 12:31 PM [facility] Creatinine 0.75 0.50 - 1.10 mg/dL LAB CHEMISTRY METHOD 10/31/2024 12:31 PM [facility] eGFR 81 >=60 mL/min/1. 73m2 LAB CHEMISTRY METHOD 10/31/2024 12:31 PM [facility] Comment:Calculation based on the??Chronic Kidney Disease Epidemiology Collaboration (CKD-EPI) equation refit??without adjustment for race. BUN/Creatinine Ratio 22.7 LAB CHEMISTRY METHOD 10/31/2024 12:31 PM [facility] Calcium 9.2 8.5 - 10.5 mg/dL LAB CHEMISTRY METHOD 10/31/2024 12:31 PM [facility] AST (SGOT) 43(H) 10 - 42 unit/L LAB CHEMISTRY METHOD 10/31/2024 12:31 PM [facility] ALT (SGPT) 60 10 - 60 unit/L LAB CHEMISTRY METHOD 10/31/2024 12:31 PM [facility] Alkaline Phosphatase 193(H) 42 - 121 unit/L LAB CHEMISTRY METHOD 10/31/2024 12:31 PM [facility] Total Protein 6.8 6.0 - 8.0 g/dL LAB CHEMISTRY METHOD 10/31/2024 12:31 PM [facility] Albumin 3.3 3.2 - 5.0 g/dL LAB CHEMISTRY METHOD 10/31/2024 12:31 PM [facility] Total Bilirubin 0.5 0.0 - 1.4 mg/dL LAB CHEMISTRY METHOD 10/31/2024 12:31 PM [facility] Blood Venous blood specimen / Unknown Venipuncture / Unknown 10/31/2024 8:53 AM EDT 10/31/2024 10:21 AM EDT us Giovanni Coffey MD LAB BLOOD ORDERABLES Final Resul t [facility] [address] [place] [address], * (ABNORMAL) Complete blood count (10/31/2024 8:53 AM EDT) WBC 5.0 4.8 - 10.8 K/mcL LAB HEMETOLOGY METHOD 10/31/2024 11:12 AM EDT [facility] RBC 3.70(L) 3.80 - 4.80 M/mcL LAB HEMETOLOGY METHOD 10/31/2024 [facility] Hemoglobin 11.5 11.5 - 16.0 g/dL LAB HEMETOLOGY METHOD 10/31/2024 11[facility] Hematocrit 35.8 35.0 - 47.0 % LAB HEMETOLOGY METHOD 10/31/2024 11:[facility] MCV 97.8 79.0 - 98.0 FL LAB HEMETOLOGY METHOD 10/31/2024 11:[facility] MCH 31.4 27.0 - 32.0 pcg LAB HEMETOLOGY METHOD 10/31/2024 11[facility] MCHC 32.1 32.0 - 37.0 g/dL LAB HEMETOLOGY METHOD 10/31/2024 11:12 AM EDT [facility] RDW 13.3 11.0 - 15.0 % LAB HEMETOLOGY METHOD 10/31/2024 11:12 AM EDT [facility] Platelets 283 130 - 400 K/mcL LAB HEMETOLOGY METHOD 10/31/2024 11[facility] MPV 10.4 7.0 - 11.0 FL LAB HEMETOLOGY METHOD 10/31/2024 11:12 AM EDT [facility] NRBC 0.0 <1.0 % LAB HEMETOLOGY METHOD 10/31/2024 11:12 AM EDT [facility] NRBC Absolute 0.00 <0.10 K/mcL LAB HEMETOLOGY METHOD 10/31/2024 11:12 AM EDT [facility] Blood Venous blood specimen / Unknown Venipuncture / Unknown 10/31/2024 8:53 AM EDT 10/31/2024 10:21 AM EDT Giovanni Coffey MD LAB BLOOD ORDERABLES Final Resul t Performing Organization Address [facility]/ZIP Co de Phone Number [facility] [address] [place] [address], [place] [phone] * (ABNORMAL) C-reactive protein (10/31/2024 8:53 AM EDT) C-Reactive Protein 1.02(H) <=0.50 mg/dL LAB CHEMISTRY METHOD 10/31/2024 12:33 PM EDT [facility] Blood Venous blood specimen / Unknown Venipuncture / Unknown 10/31/2024 8:53 AM EDT 10/31/2024 10:21 AM EDT Giovanni Coffey MD LAB BLOOD ORDERABLES Final Resul t Performing Organization Address City/[facility]/ZIP Co de Phone Number [facility] [address] [place] [address], [place] [phone] documented in this encounter Visit Diagnoses Diagnosis Essential (primary) hypertension Unspecified essential hypertension Hyperlipidemia, unspecified Unspecified osteoarthritis, unspecified site Encounter for other orthopedic aftercare documented in this encounter Care Teams Executive Receptionist Relationship Specialty Start Date End Date Carlita Villegas MD [address] [place] [address] PCP - General 1/20/23 documented as of this encounter
--- OUTSIDE RECORDS SUMMARY | 2024-11-10 08:31 | XMS_ITS | Patient Health Record ---
Author Organization [facility] Address [address] [facility] [address] [place] [address] Support Name Relationship Address Phone KEVIN PFEIFFER Guarantor Unknown [phone] Reason For Referral No Information Medications Medication SIG (Take, Route, Frequency, Duration) Notes Start Date End Date Status Calcium-Carb 600 + D 1 ORAL daily for -3 [facility] 2 Active Anita-D 12 Hour 60-120 1 ORAL twice daily for -3 [facility] 01/12/2012 Active Evista 60MG 1 ORAL daily for -3 [facility] 08/30/2012 Active Multivitamins 1 ORAL daily for -3 [facility] 01/12/2012 Active Problems Problem Type SNOMED Code ICD Code Onset Dates Problem Status W/U Status Risk Notes Problem Osteoarthritis (233801504) Osteoarthrosis, unspecified whether generalized or localized, unspecified site (715.90) Active confirmed Major Problem Osteoporosis (37614885) Unspecified osteoporosis (733.00) Active confirmed Major Problem Gynecological examination normal (783108777982832) Routine gynecological examination (V72.31) Active confirmed Diag Plan Of Treatment No Information Insurance Providers Payer Name Payer Address Payer Phone Subscriber Number Group Number Insured Name Patient Relationship to Insured Coverage Start Date Coverage End Date [employer] [facility] [address] [place] [address] [id number] KEVIN PFEIFFER Self - patient is the insured
== END 2024-11-10 08:13 | disposition home or self-care (01) ==
LOC: HO.HOSX 08:12
DX: S32.10XA Unspecified fracture of sacrum, initial encounter for closed fracture (principal); S32.599A Other specified fracture of unspecified pubis, initial encounter for closed fracture
CPT/HCPCS: 72170; 99212

== ENCOUNTER 2024-11-10 10:53 | Outpatient (AMB) | payer MEDICARE, SELFPAY ==
--- NOTE | 2024-11-10 11:02 | A.OFFVIS_ITS ---
Intake Visit Reasons: FC-pelvic fractures on the right side Intake Note: Dayna is an 79 year old female who presents today for a fracture care visit for her right sacral ala and superior pubic ramus fractures, DOI: 10/10/24. Patient expresses pain when she attempts to weight bear on her right leg or when she is sleeping and turns on that side. She reports she has been trying to stay off of her right leg because she knows she should not be weightbearing. Denies numbness and tingling in the right leg and right foot. Allergies azithromycin Adverse Reaction (Verified 11/10/24 11:05) Stomach Upset doxycycline Adverse Reaction (Verified 11/10/24 11:05) Gastrointestinal Upset sulfamethoxazole [From Bactrim] Adverse Reaction (Verified 11/10/24 11:05) Stomach Upset trimethoprim [From Bactrim] Adverse Reaction (Verified 11/10/24 11:05) Stomach Upset HPI HPI FC-pelvic fractures on the right side: Details: Dayna is an 79 year old female who presents today for a fracture care visit for her right sacral ala and superior pubic ramus fractures, DOI: 10/10/24. Patient expresses pain when she attempts to put her right foot down or when she is sleeping and turns on that side. She reports she has been trying to stay off of her right leg because she knows she should not be weightbearing. Denies numbness and tingling in the right leg and right foot. [facility] Medical History Enlarged aorta Osteoporosis Allergies Elevated cholesterol PONV (postoperative nausea and vomiting) HTN (hypertension) Surgical History Hx of colonoscopy Hx of left cataract extraction Hx of hysterectomy Hx of tonsillectomy Social History Household Members: None Housing: House Do you presently have visiting nurse or other home services: No Unable to assess alcohol history related to: Unknown Alcohol intake: never Patient Tobacco Use Status: Former Tobacco user Second Hand Smoke Exposure: No Advance Directives Date on File: 11/29/23 service: No Current occupational status: retired Current occupation: right hand dominant Review of Systems Const All systems reviewed & are unremarkable except as noted in HPI and below Physical Exam Extrem Other: Patient's right hip, pelvis, upper right leg normal to inspection No erythema, ecchymosis, edema noted No lacerations, abrasions, open areas No evidence of infection Patient was able to flex and extend the digits of the right foot fully and without difficulty Distal sensation intact Capillary refill brisk Office Procedures AMB Fracture Care Fracture Billing Code: Fracture Billing Code Results Reviewed Results Reviewed: X-rays obtained in the office today and independently reviewed by me, Luke López PA-C, demonstrate nondisplaced fractures of right superior pubic ramus and right sacral ala in very similar alignment to previous x-rays taken in the emergency department. Assessment & Plan Assessment & Plan (1) Fracture of sacrum: Code(s): S32.10XA - Unspecified fracture of sacrum, initial encounter for closed fracture Category: Medical (2) Closed fracture of pubic ramus: Code(s): S32.599A - Other specified fracture of unspecified pubis, initial encounter for closed fracture Category: Medical Plan 1. Right sacral ala fracture 2. Right superior pubic ramus fracture Date of injury 10/10/2024 Patient is educated about these injuries Patient was educated about the typical recovery course At this time, patient was informed that she should continue nonweightbearing for a further 2 months to allow for bony healing and to prevent displacement of her fractures and therefore her pelvis Patient expresses understanding of this and is amenable to this plan Follow-up in 4 weeks with repeat x-rays for reassessment, sooner with any acute concerns Coding Level of Care Code Est Pt Level 3 (40237) Diagnoses Fracture of sacrum S32.10XA Closed fracture of pubic ramus S32.599A CPT Codes Fracture Care - Fracture Billing Code: Fracture Billing Code ([id number])
--- OUTSIDE RECORDS SUMMARY | 2024-11-10 13:00 | XMS_ITS | Encounter Summary ---
Author Organization [facility] Address [address] [place] [address] Care Team Providers Care Auto Collision Repair Instructor Name Role Phone Carlita Villegas MD Primary Care Provider [phone] Encounter Details Date Type Department Care Team (Late st Contact Info) Description 10/30/2024 Lab Requisition [facility] - Main Lab [address] [facility] [place] [address] Giovanni Coffey MD [address] [place] [address], [phone] Essential (primary) hypertension; Hyperlipidemia, unspecified; Unspecified [...] 10:00 AM EST Office Visit Endocrinology - [place] [address] [place], [place] [phone] Gisell Villegas PA [address] [place], [place] 08/26/2025 10:00 AM EST Office Visit Vascular Surgery - [place] [address] [place] [address] Priya Lopez MD [address] [place] [address] documented as of this encounter Procedures Procedure [...] mmol/L LAB CHEMISTRY METHOD 10/31/2024 12:31 PM [facility] Potassium 4.3 3.5 - 5.5 mmol/L LAB CHEMISTRY METHOD 10/31/2024 12:31 PM [facility] Chloride 104 96 - 110 mmol/L LAB CHEMISTRY METHOD 10/31/2024 12:31 PM [facility] CO2 30 21 - 32 mmol/L LAB CHEMISTRY METHOD 10/31/2024 12:31 PM [facility] Anion Gap 4 3 - 11 LAB CHEMISTRY METHOD 10/31/2024 12:31 PM [facility] Glucose 122(H) 70 - 100 mg/dL LAB CHEMISTRY METHOD 10/31/2024 12:31 PM [facility] BUN 17 5 - 25 mg/dL LAB CHEMISTRY METHOD 10/31/2024 12:31 PM [facility] Creatinine 0.75 0.50 - 1.10 mg/dL LAB CHEMISTRY METHOD 10/31/2024 12:31 PM [facility] eGFR 81 >=60 mL/min/1. 73m2 LAB CHEMISTRY METHOD 10/31/2024 12:31 PM [facility] Comment:Calculation based on the??Chronic Kidney Disease Epidemiology Collaboration (CKD-EPI) equation refit??without adjustment for race. BUN/Creatinine Ratio 22.7 LAB CHEMISTRY METHOD 10/31/2024 12:31 PM [facility] Calcium 9.2 8.5 - 10.5 mg/dL LAB CHEMISTRY METHOD 10/31/2024 12:31 PM [facility] AST (SGOT) 43(H) 10 - 42 unit/L LAB CHEMISTRY METHOD 10/31/2024 12:31 PM [facility] ALT (SGPT) 60 10 - 60 unit/L LAB CHEMISTRY METHOD 10/31/2024 12:31 PM [facility] Alkaline Phosphatase 193(H) 42 - 121 unit/L LAB CHEMISTRY METHOD 10/31/2024 12:31 PM [facility] Total Protein 6.8 6.0 - 8.0 g/dL LAB CHEMISTRY METHOD 10/31/2024 12:31 PM [facility] Albumin 3.3 3.2 - 5.0 g/dL LAB CHEMISTRY METHOD 10/31/2024 12:31 PM [facility] Total Bilirubin 0.5 0.0 - 1.4 mg/dL LAB CHEMISTRY METHOD 10/31/2024 12:31 PM [facility] Blood Venous blood specimen / Unknown Venipuncture / Unknown 10/31/2024 8:53 AM EDT 10/31/2024 10:21 AM EDT us Giovanni Coffey MD LAB BLOOD ORDERABLES Final Resul t [facility] [address] [place] [address], * (ABNORMAL) Complete blood count (10/31/2024 8:53 AM EDT) WBC 5.0 4.8 - 10.8 K/mcL LAB HEMETOLOGY METHOD 10/31/2024 11:12 AM EDT [facility] RBC 3.70(L) 3.80 - 4.80 M/mcL LAB HEMETOLOGY METHOD 10/[facility]24 [facility] Hemoglobin 11.5 11.5 - 16.0 g/dL LAB HEMETOLOGY METHOD 10/31/2024 [facility] Hematocrit 35.8 35.0 - 47.0 % LAB HEMETOLOGY METHOD 10/31/2024 11[facility] MCV 97.8 79.0 - 98.0 FL LAB HEMETOLOGY METHOD 10/31/2024 11:[facility] MCH 31.4 27.0 - 32.0 pcg LAB HEMETOLOGY METHOD 10/31/2024 11[facility] MCHC 32.1 32.0 - 37.0 g/dL LAB HEMETOLOGY METHOD 10/31/2024 11:12 AM EDT [facility] RDW 13.3 11.0 - 15.0 % LAB HEMETOLOGY METHOD 10/31/2024 11:12 AM EDT [facility] Platelets 283 130 - 400 K/mcL LAB HEMETOLOGY METHOD 10/31/2024 11:[facility] MPV 10.4 7.0 - 11.0 FL LAB HEMETOLOGY METHOD 10/31/2024 11:12 AM EDT [facility] NRBC 0.0 <1.0 % LAB HEMETOLOGY METHOD 10/31/2024 11:12 AM EDT [facility] NRBC Absolute 0.00 <0.10 K/mcL LAB HEMETOLOGY METHOD 10/31/2024 11:12 AM EDT [facility] Blood Venous blood specimen / Unknown Venipuncture / Unknown 10/31/2024 8:53 AM EDT 10/31/2024 10:21 AM EDT Giovanni Coffey MD LAB BLOOD ORDERABLES Final Resul t Performing Organization Address [facility]/ZIP Co de Phone Number [facility] [address] [place] [address], [place] [phone] * (ABNORMAL) C-reactive protein (10/31/2024 8:53 AM EDT) C-Reactive Protein 1.02(H) <=0.50 mg/dL LAB CHEMISTRY METHOD 10/31/2024 12:33 PM EDT [facility] Blood Venous blood specimen / Unknown Venipuncture / Unknown 10/31/2024 8:53 AM EDT 10/31/2024 10:21 AM EDT Giovanni Coffey MD LAB BLOOD ORDERABLES Final Resul t Performing Organization Address City/[facility]/ZIP Co de Phone Number [facility] [address] [place] [address], [place] [phone] documented in this encounter Visit Diagnoses Diagnosis Essential (primary) hypertension Unspecified essential hypertension Hyperlipidemia, unspecified Unspecified osteoarthritis, unspecified site Encounter for other orthopedic aftercare documented in this encounter Care Teams Auto Collision Repair Instructor Relationship Specialty Start Date End Date Carlita Villegas MD [address] [place] [address] PCP - General 1/20/23 documented as of this encounter
--- OUTSIDE RECORDS SUMMARY | 2024-11-10 13:00 | XMS_ITS | Encounter Summary ---
Author Organization [facility] Address [address] [place] [address] Care Team Providers Care Diamond Grinder Name Role Phone Carlita Villegas MD Primary Care Provider [phone] Encounter Details Date Type Department Care Team (Late Contact Info) Description 11/07/[address] [facility] - Main Lab [address] [facility] [place] [address] Giovanni Coffey MD [address] [place] [address], [phone] Essential (primary) hypertension Social History Tobacco [...] 10:00 AM EST Office Visit Endocrinology - [place] [address] [place] [address] Gisell Villegas PA [address] [place] [address] 08/26/2025 10:00 AM EST Office Visit Vascular Surgery - [place] [address] [place] [phone] Priya Lopez MD [address] [place] [address] documented as of this encounter Procedures Procedure Name Priority Date/Time Associated Diagnosis Comments URINALYSIS WITH REFLEX MICROSCOPIC Routine 11/06/2024 9:28 PM EDT Essential (primary) hypertension URINALYSIS WITH REFLEX MICROSCOPIC Routine 11/06/2024 9:28 PM EDT Essential (primary) hypertension CULTURE URINE Routine 11/06/2024 9:28 PM EDT Essential (primary) hypertension documented in this encounter Results * (ABNORMAL) Urinalysis with reflex microscopic (11/06/2024 9:28 PM EDT) Specific [place] Urine 1.014 1.003 - 1.030 LAB URINALYSIS - AUTOMATED METHOD 11/07/2024 11:48 AM [facility] pH, Urine 6.0 5.0 - 8.0 pH LAB URINALYSIS - AUTOMATED METHOD 11/07/2024 11:48 AM [facility] Leukocytes, Urine Large(A) Negative LAB URINALYSIS - AUTOMATED METHOD 11/07/2024 11:48 AM [facility] Nitrite, Urine Positive(A) Negative LAB URINALYSIS - AUTOMATED METHOD 11/07/2024 11:48 AM [facility] Protein, Urine 30(A) <=Trace mg/dL LAB URINALYSIS - AUTOMATED METHOD 11/07/2024 11:48 AM [facility] Glucose, Urine Negative Negative mg/dL LAB URINALYSIS - AUTOMATED METHOD 11/07/2024 11:48 AM [facility] Ketones, Urine Negative Negative mg/dL LAB URINALYSIS - AUTOMATED METHOD 11/07/2024 11:48 AM [facility] Urobilinogen , Urine 0.2 0.2 - 1.0 mg/dL LAB URINALYSIS - AUTOMATED METHOD 11/07/2024 11:48 AM [facility] Bilirubin, Urine Negative Negative LAB URINALYSIS - AUTOMATED METHOD 11/07/2024 11:48 AM [facility] Blood, Urine Large(A) Negative LAB URINALYSIS - AUTOMATED METHOD 11/07/2024 11:48 AM [facility] RBC, Urine 7.7(H) 0 - 4 /HPF LAB URINALYSIS - AUTOMATED METHOD 11/07/2024 11:48 AM [facility] WBC, Urine 357.6(H) 0 - 4 /HPF LAB URINALYSIS - AUTOMATED METHOD 11/07/2024 11:48 AM [facility] Squamous Epithelial, Urine 12 0 - 60 /LPF LAB URINALYSIS - AUTOMATED METHOD 11/07/2024 11:48 AM [facility] Bacteria, Urine Many(A) Negative /HPF LAB URINALYSIS - AUTOMATED METHOD 11/07/2024 11:48 AM [facility] Hyaline Casts, Urine 0.4 0 - 3 /LPF LAB URINALYSIS - AUTOMATED METHOD 11/07/2024 11:48 AM [facility] Urine Urine specimen from urethra / Unknown Non-blood Collection / Unknown 11/06/2024 9:28 PM EDT 11/07/2024 10:51 AM EDT us Giovanni Coffey MD LAB URINE ORDERABLES Final Resul t [facility] [address] [place] [address], * (ABNORMAL) Culture urine (11/06/2024 9:28 PM EDT) Culture, Urine >100,000 CFU/mL Escherichia coli(A) DANO 11/09/2024 9:22 AM EDT [facility] Urine Urine specimen from urethra [...] MICROBIOLOGY - GENERAL ORDER ERWIN Final Result [facility] [address] [place] [address], documented in this encounter Visit Diagnoses Diagnosis Essential (primary) hypertension Unspecified essential hypertension documented in this encounter Care Teams Diamond Grinder Relationship Specialty Start Date End Date Carlita Villegas MD [address] [place] [address] PCP - General 08/25/22 documented as of this encounter
--- OUTSIDE RECORDS SUMMARY | 2024-11-10 13:00 | XMS_ITS | Encounter Summary ---
Author Organization [facility] Address [address] [place] [address] Care Team Providers Care Client Service Executive Name Role Phone Carlita Villegas MD Primary Care Provider [phone] Encounter Details Date Type Department Care Team (Late st Contact Info) Description 11/06/2024 Lab Requisition [facility] - Main Lab [address] [facility] [place] [address] Giovanni Coffey MD [address] [place] [address], [phone] Essential (primary) hypertension; Hyperlipidemia, unspecified; Unspecified [...] 10:00 AM EST Office Visit Endocrinology - [place] [address] [employer], [place] [phone] Gisell Villegas PA [address] [employer] [employer], [place] 08/26/2025 10:00 AM EST Office Visit Vascular Surgery - [place] [address] [place] [address] Priya Lopez MD [address] [place] [address] documented as of this encounter Procedures Procedure [...] mmol/L LAB CHEMISTRY METHOD 11/07/2024 11:58 AM [facility] Potassium 4.0 3.5 - 5.5 mmol/L LAB CHEMISTRY METHOD 11/07/2024 11:58 AM [facility] Chloride 105 96 - 110 mmol/L LAB CHEMISTRY METHOD 11/07/2024 11:58 AM [facility] CO2 28 21 - 32 mmol/L LAB CHEMISTRY METHOD 11/07/2024 11:58 AM [facility] Anion Gap 6 3 - 11 LAB CHEMISTRY METHOD 11/07/2024 11:58 AM [facility] Glucose 86 70 - 100 mg/dL LAB CHEMISTRY METHOD 11/07/2024 11:58 AM [facility] BUN 15 5 - 25 mg/dL LAB CHEMISTRY METHOD 11/07/2024 11:58 AM [facility] Creatinine 0.62 0.50 - 1.10 mg/dL LAB CHEMISTRY METHOD 11/07/2024 11:58 AM [facility] eGFR 90 >=60 mL/min/1. 73m2 LAB CHEMISTRY METHOD 11/07/2024 11:58 AM [facility] Comment:Calculation based on the??Chronic Kidney Disease Epidemiology Collaboration (CKD-EPI) equation refit??without adjustment for race. BUN/Creatinine Ratio 24.2 LAB CHEMISTRY METHOD 11/07/2024 11:58 AM [facility] Calcium 9.1 8.5 - 10.5 mg/dL LAB CHEMISTRY METHOD 11/07/2024 11:58 AM [facility] AST (SGOT) 21 10 - 42 unit/L LAB CHEMISTRY METHOD 11/07/2024 11:58 AM [facility] ALT (SGPT) 31 10 - 60 unit/L LAB CHEMISTRY METHOD 11/07/2024 11:58 AM [facility] Alkaline Phosphatase 152(H) 42 - 121 unit/L LAB CHEMISTRY METHOD 11/07/2024 11:58 AM [facility] Total Protein 6.8 6.0 - 8.0 g/dL LAB CHEMISTRY METHOD 11/07/2024 11:58 AM [facility] Albumin 3.3 3.2 - 5.0 g/dL LAB CHEMISTRY METHOD 11/07/2024 11:58 AM [facility] Total Bilirubin 0.5 0.0 - 1.4 mg/dL LAB CHEMISTRY METHOD 11/07/2024 11:58 AM [facility] Blood Venous blood specimen / Unknown Venipuncture / Unknown 11/07/2024 8:03 AM EDT 11/07/2024 10:42 AM EDT us Giovanni Coffey MD LAB BLOOD ORDERABLES Final Resul t [facility] [address] [place] [address], * (ABNORMAL) Complete blood count (11/07/2024 8:03 AM EDT) WBC 4.9 4.8 - 10.8 K/mcL LAB HEMETOLOGY METHOD 11/07/2024 11:17 AM EDT [facility] RBC 3.70(L) 3.80 - 4.80 M/mcL LAB HEMETOLOGY METHOD 11/07/2024 11:17 AM EDT [facility] Hemoglobin 11.5 11.5 - 16.0 g/dL LAB HEMETOLOGY METHOD 11/07/2024 11:17 AM [facility] Hematocrit 35.7 35.0 - 47.0 % LAB HEMETOLOGY METHOD 11/07/2024 11:17 AM EDT [facility] MCV 96.7 79.0 - 98.0 FL LAB HEMETOLOGY METHOD 11/07/2024 11:17 AM EDT [facility] MCH 31.2 27.0 - 32.0 pcg LAB HEMETOLOGY METHOD 11/07/2024 11:17 AM [facility] MCHC 32.2 32.0 - 37.0 g/dL LAB HEMETOLOGY METHOD 11/07/2024 11:17 AM EDT [facility] RDW 13.4 11.0 - 15.0 % LAB HEMETOLOGY METHOD 11/07/2024 11:17 AM EDT [facility] Platelets 222 130 - 400 K/mcL LAB HEMETOLOGY METHOD 11/07/2024 11:17 AM [facility] MPV 10.4 7.0 - 11.0 FL LAB HEMETOLOGY METHOD 11/07/2024 11:17 AM EDT [facility] NRBC 0.0 <1.0 % LAB HEMETOLOGY METHOD 11/07/2024 11:17 AM EDT [facility] NRBC Absolute 0.00 <0.10 K/mcL LAB HEMETOLOGY METHOD 11/07/2024 11:17 AM EDT [facility] Blood Venous blood specimen / Unknown Venipuncture / Unknown 11/07/2024 8:03 AM EDT 11/07/2024 10:40 AM EDT Giovanni Coffey MD LAB BLOOD ORDERABLES Final Resul t Performing Organization Address City/[facility]/ZIP Co de Phone Number [facility] [address] [place] [address], [place] [phone] * (ABNORMAL) C-reactive protein (11/07/2024 8:03 AM EDT) C-Reactive Protein 0.97(H) <=0.50 mg/dL LAB CHEMISTRY METHOD 11/07/2024 11:56 AM EDT [facility] Blood Venous blood specimen / Unknown Venipuncture / Unknown 11/07/2024 8:03 AM EDT 11/07/2024 10:42 AM EDT Giovanni Coffey MD LAB BLOOD ORDERABLES Final Resul t Performing Organization Address City/[facility]/ZIP Co de Phone Number [facility] [address] [place] [address], [place] [phone] documented in this encounter Visit Diagnoses Diagnosis Essential (primary) hypertension Unspecified essential hypertension Hyperlipidemia, unspecified Unspecified osteoarthritis, unspecified site Encounter for other orthopedic aftercare documented in this encounter Care Teams Client Service Executive Relationship Specialty Start Date End Date Carlita Villegas MD [address] [place] [phone] PCP - General 08/25/22 documented as of this encounter
--- OUTSIDE RECORDS SUMMARY | 2024-11-10 13:00 | XMS_ITS | Encounter Summary ---
Author Organization [facility] Address [address] [place] [address] Care Team Providers Care Band Singer Name Role Phone Carlita Villegas MD Primary Care Provider [phone] Encounter Details Date Type Department Care Team (Late Contact Info) Description 10/17/2024 Lab Requisition [facility] - Main Lab [address] [facility] [place] [address] Giovanni Coffey MD [address] [place] [address], [phone] Essential (primary) hypertension; Hyperlipidemia, unspecified Social [...] 10:00 AM EST Office Visit Endocrinology - [place] [address] [place] [address] Gisell Villegas PA [address] [place] [address] 08/26/2025 10:00 AM EST Office Visit Vascular Surgery - [place] [address] [place] [address] Priya Lopez MD [address] [place] [address] documented as of this encounter Procedures Procedure [...] LAB CHEMISTRY METHOD 10/17/2024 11:41 AM EDT [facility] Blood Venous blood specimen / Unknown Venipuncture / Unknown 10/17/2024 8:47 AM EDT 10/17/2024 10:31 AM EDT us Giovanni Coffey MD LAB BLOOD ORDERABLES Final Resul t [facility] [address] [place] [address], * Lipid panel with reflex to direct LDL (10/17/2024 8:47 AM EDT) Cholesterol 173 0 - 200 mg/dL LAB CHEMISTRY METHOD 10/17/2024 11:42 AM EDT [facility] Triglycerides 101 0 - 150 mg/dL LAB CHEMISTRY METHOD 10/17/2024 11:42 AM EDT [facility] HDL 55 >=40 mg/dL LAB CHEMISTRY METHOD 10/17/2024 11:42 AM EDT [facility] LDL Calculated 98 0 - 100 mg/dL LAB CHEMISTRY METHOD 10/17/2024 11:42 AM EDT [facility] VLDL Cholesterol Waldemar 20.2 mg/dL LAB CHEMISTRY METHOD 10/17/2024 11:42 AM T [facility] Non HDL Chol. (LDL+VLDL) 118 <145 mg/dL LAB CHEMISTRY METHOD 10/17/2024 11:42 AM [facility] Chol/HDL Ratio 3.1 0.0 - 4.4 LAB CHEMISTRY METHOD 10/17/2024 11:42 AM [facility] Blood Venous blood specimen / Unknown Venipuncture / Unknown 10/17/2024 8:47 AM EDT 10/17/2024 10:31 AM EDT us Giovanni Coffey MD LAB BLOOD ORDERABLES Final Resul t [facility] [address] [place] [address], [place] [phone] * (ABNORMAL) Comprehensive metabolic panel (10/17/2024 8:47 AM EDT) Sodium 138 133 - 145 mmol/L LAB CHEMISTRY METHOD 10/17/2024 11:41 AM T [facility] Potassium 3.8 3.5 - 5.5 mmol/L LAB CHEMISTRY METHOD 10/17/2024 11:41 AM [facility] Chloride 105 96 - 110 mmol/L LAB CHEMISTRY METHOD 10/17/2024 11:41 AM [facility] CO2 28 21 - 32 mmol/L LAB CHEMISTRY METHOD 10/17[facility]24 [facility] Anion Gap 5 3 - 11 LAB CHEMISTRY METHOD 10/17/2024 11:41 AM [facility] Glucose 128(H) 70 - 100 mg/dL LAB CHEMISTRY METHOD 10/17/2024 11:41 AM [facility] BUN 16 5 - 25 mg/dL LAB CHEMISTRY METHOD 10/17/2024 11:41 AM [facility] Creatinine 0.65 0.50 - 1.10 mg/dL LAB CHEMISTRY METHOD 10/17/2024 11:41 AM [facility] eGFR 89 >=60 mL/min/1. 73m2 LAB CHEMISTRY METHOD 10/17/2024 11:41 AM [facility] Comment:Calculation based on the??Chronic Kidney Disease Epidemiology Collaboration (CKD-EPI) equation refit??without adjustment for race. BUN/Creatinine Ratio 24.6 LAB CHEMISTRY METHOD 10/17/2024 11:41 AM [facility] Calcium 8.8 8.5 - 10.5 mg/dL LAB CHEMISTRY METHOD 10/17/2024 11:41 AM [facility] AST (SGOT) 65(H) 10 - 42 unit/L LAB CHEMISTRY METHOD 10/17/2024 11:41 AM [facility] ALT (SGPT) 47 10 - 60 unit/L LAB CHEMISTRY METHOD 10/17/2024 11:41 AM [facility] Alkaline Phosphatase 60 42 - 121 unit/L LAB CHEMISTRY METHOD 10/17/2024 11:41 AM [facility] Total Protein 6.2 6.0 - 8.0 g/dL LAB CHEMISTRY METHOD 10/17/2024 11:41 AM [facility] Albumin 2.8(L) 3.2 - 5.0 g/dL LAB CHEMISTRY METHOD 10/17/2024 11:41 AM [facility] Total Bilirubin 0.7 0.0 - 1.4 mg/dL LAB CHEMISTRY METHOD 10/17/2024 11:41 AM EDT [facility] Blood Venous blood specimen / Unknown Venipuncture / Unknown 10/17/2024 8:47 AM EDT 10/17/2024 10:31 AM EDT us Giovanni Coffey MD LAB BLOOD ORDERABLES Final Resul t [facility] [address] [place] [address], [place] [phone] * (ABNORMAL) Complete blood count (10/17/2024 8:47 AM EDT) WBC 5.1 4.8 - 10.8 K/mcL LAB HEMETOLOGY METHOD 10/17/2024 11:13 AM [facility] RBC 3.70(L) 3.80 - 4.80 M/mcL LAB HEMETOLOGY METHOD 10/17/2024 11:[facility] Hemoglobin 11.8 11.5 - 16.0 g/dL LAB HEMETOLOGY METHOD 10/17/2024 11:13 AM [facility] Hematocrit 35.7 35.0 - 47.0 % LAB HEMETOLOGY METHOD 10/17/2024 11:13 AM [facility] MCV 95.5 79.0 - 98.0 FL LAB HEMETOLOGY METHOD 10/17/2024 11:[facility] MCH 31.6 27.0 - 32.0 pcg LAB HEMETOLOGY METHOD 10/17/2024 11:13 AM [facility] MCHC 33.1 32.0 - 37.0 g/dL LAB HEMETOLOGY METHOD 10/17/2024 11:13 AM [facility] RDW 13.1 11.0 - 15.0 % LAB HEMETOLOGY METHOD 10/17/2024 11:13 AM EDT [facility] Platelets 184 130 - 400 K/mcL LAB HEMETOLOGY METHOD 10/17/2024 11:13 AM EDT [facility] MPV 11.4(H) 7.0 - 11.0 FL LAB HEMETOLOGY METHOD 10/17/2024 11:13 AM EDT [facility] NRBC 0.0 <1.0 % LAB HEMETOLOGY METHOD 10/17/2024 11:13 AM EDT [facility] NRBC Absolute 0.00 <0.10 K/mcL LAB HEMETOLOGY METHOD 10/17/2024 11:13 AM EDT [facility] Blood Venous blood specimen / Unknown Venipuncture / Unknown 10/17/2024 8:47 AM EDT 10/17/2024 10:31 AM EDT us Giovanni Coffey MD LAB BLOOD ORDERABLES Final Resul t [facility] [address] [place] [address], documented in this encounter Visit Diagnoses Diagnosis Essential (primary) hypertension Unspecified essential hypertension Hyperlipidemia, unspecified documented in this encounter Care Teams Band Singer Relationship Specialty Start Date End Date Carlita Villegas MD [address] [place] [phone] PCP - General 08/25/22 documented as of this encounter
--- OUTSIDE RECORDS SUMMARY | 2024-11-10 13:00 | XMS_ITS | Clinical Summary ---
Author Organization [facility] Address [address] [place] [address] Phone Care Team Providers Care Telephone Order Supervisor Name Role Phone Carlita Villegas MD Primary Care Provider [phone] Allergies Active Allergy Reactions Criticality Noted Date [...] Department Care Team Description 11/09/2024 Lab Requisition [facility] [address] [facility] [place] [address] Giovanni Coffey MD Essential (primary) hypertension; Hyperlipidemia, unspecified 11/07/2024 Lab Requisition [facility] [address] [place] [address] Giovanni Coffey MD Essential (primary) hypertension 11/06/2024 Lab Requisition [facility] [address] [place] [address] Giovanni Coffey MD Essential (primary) hypertension; Hyperlipidemia, unspecified; Unspecified osteoarthritis, unspecified site; Encounter for other orthopedic aftercare 11/01/2024 Lab Requisition [facility] [address] [place] [address] Giovanni Coffey MD Essential (primary) hypertension; Hyperlipidemia, unspecified 10/30/2024 Lab Requisition [facility] [address] [place] [address] Giovanni Coffey MD Essential (primary) hypertension; Hyperlipidemia, unspecified; Unspecified osteoarthritis, unspecified site; Encounter for other orthopedic aftercare 10/27/2024 Lab Requisition [facility] [address] [place] [address] Giovanni Coffey MD Essential (primary) hypertension; Hyperlipidemia, unspecified 10/23/2024 Lab Requisition [facility] [address] [place] [address] Giovanni Coffey MD Essential (primary) hypertension; Hyperlipidemia, unspecified; Unspecified osteoarthritis, unspecified site; Encounter for other orthopedic aftercare 10/17/2024 Lab Requisition [facility] [address] [place] [address] Giovanni Coffey MD Essential (primary) hypertension; Hyperlipidemia, unspecified 10/17/[address] [address] Lisandro Cohen [place] prolia info needed 10/14/2024 Telephone Adult Medicine [address] [address] Carlita Villegas MD 08/15/2024 9:00 AM EST - 08/15/2024 11:59 PM EST Hospital Encounter Radiology Department - [address] [address] Encounter for screening mammogram for breast cancer Discharge Disposition: Home or Self Care 08/13/2024 9:00 AM EST Office Visit Vascular Surgery - [place] [address] [place] [address] Priya Lopez MD Asymptomatic bilateral [...] COMMENT: bleeding COLONOSCOPY W/ BIOPSIES 04/07/2010 PROCEDURE: OH COLONOSCOPY STOMA W/BIOPSY SINGLE/MULTIPLE; COMMENT: Up to cecum, good preparation, 15mm polyp at ascending partially removed:tubular adenoma, transverse colon polyp removed.:ulcerated inflammatory polyp COLONOSCOPY 03/20/2012 PROCEDURE: OH COLONOSCOPY FLX DX W/COLLJ SPEC WHEN PFRMD; COMMENT: normal to mid right colon, very difficult exam. BREAST SURGERY 08/06/1986 Left PROCEDURE: OH UNLISTED PROCEDURE BREAST; COMMENT: benign Medical History [...] 06/17/2025 10:00 AM EST Office Visit Endocrinology [facility] [address] [place] [address] Gisell Villegas PA [address] [place] [address] 08/26/2025 10:00 AM EST Office Visit Vascular Surgery - [place] [address] [place] [address] Priya Lopez MD [address] [place] [address] Health Maintenance Due Date Last Done Comments [...] Associated Diagnosis Comments COMPLETE BLOOD COUNT Routine 11/10/2024 6:40 AM EDT Essential (primary) hypertension Hyperlipidemia, unspecified COMPREHENSIVE METABOLIC PANEL Routine 11/07/2024 8:03 AM [...] Maintenance Results * (ABNORMAL) Complete blood count (11/10/2024 6:40 AM EDT) Only the most recent of7 resultswithin the time period is included. WBC 3.7(L) 4.8 - 10.8 K/mcL LAB HEMETOLOGY METHOD 11/10/2024 11:50 AM [facility] RBC 3.70(L) 3.80 - 4.80 M/mcL LAB HEMETOLOGY METHOD 11/10/2024 11:50 AM [facility] Hemoglobin 11.6 11.5 - 16.0 g/dL LAB HEMETOLOGY METHOD 11/10/2024 11:50 AM [facility] Hematocrit 36.4 35.0 - 47.0 % LAB HEMETOLOGY METHOD 11/10/2024 11:50 AM [facility] MCV 98.4(H) 79.0 - 98.0 FL LAB HEMETOLOGY METHOD 11/10/2024 11:50 AM [facility] MCH 31.4 27.0 - 32.0 pcg LAB HEMETOLOGY METHOD 11/10/2024 11:50 AM [facility] MCHC 31.9(L) 32.0 - 37.0 g/dL LAB HEMETOLOGY METHOD 11/10/2024 11:50 AM [facility] RDW 13.2 11.0 - 15.0 % LAB HEMETOLOGY METHOD 11/10/2024 11:50 AM [facility] Platelets 210 130 - 400 K/mcL LAB HEMETOLOGY METHOD 11/10/2024 11:50 AM [facility] MPV 10.7 7.0 - 11.0 FL LAB HEMETOLOGY METHOD 11/10/2024 11:50 AM [facility] NRBC 0.0 <1.0 % LAB HEMETOLOGY METHOD 11/10/2024 11:50 AM [facility] NRBC Absolute 0.00 <0.10 K/mcL LAB HEMETOLOGY METHOD 11/10/2024 11:50 AM [facility] Blood Venous blood specimen / Unknown Venipuncture / Unknown 11/10/2024 6:40 AM EDT 11/10/2024 11:16 AM EDT us Giovanni Coffey MD LAB BLOOD ORDERABLES Final Resul t Performing Organization Address [facility] de Phone Number [facility] [address] [place] [address], [place] [phone] * (ABNORMAL) C-reactive protein (11/07/2024 8:03 AM EDT) Only the most recent of4 resultswithin the time period is included. [facility] C-Reactive Protein 0.97(H) <=0.50 mg/dL LAB CHEMISTRY METHOD 11/07/2024 11:56 AM EDT [facility] Blood Venous blood specimen / Unknown Venipuncture / Unknown 11/07/2024 8:03 AM EDT 11/07/2024 10:42 AM EDT us Giovanni Coffey MD LAB BLOOD ORDERABLES Final Resul t Performing Organization Address [facility] de Phone Number [facility] [address] [place] [address], [place] [phone] * (ABNORMAL) Comprehensive metabolic panel (11/07/2024 8:03 AM EDT) Only the most recent of6 resultswithin the time period is included. [facility] Sodium 139 133 - 145 mmol/L LAB CHEMISTRY METHOD 11/07/2024 11:58 AM EDT [facility] Potassium 4.0 3.5 - 5.5 mmol/L LAB CHEMISTRY METHOD 11/07/2024 11:58 AM EDT [facility] Chloride 105 96 - 110 mmol/L LAB CHEMISTRY METHOD 11/07/2024 11:58 AM EDT [facility] CO2 28 21 - 32 mmol/L LAB CHEMISTRY METHOD 11/07/2024 11:58 AM [facility] Anion Gap 6 3 - 11 LAB CHEMISTRY METHOD 11/07/2024 11:58 AM [facility] Glucose 86 70 - 100 mg/dL LAB CHEMISTRY METHOD 11/07/2024 11:58 AM [facility] BUN 15 5 - 25 mg/dL LAB CHEMISTRY METHOD 11/07/2024 11:58 AM [facility] Creatinine 0.62 0.50 - 1.10 mg/dL LAB CHEMISTRY METHOD 11/07/2024 11:58 AM [facility] eGFR 90 >=60 mL/min/1. 73m2 LAB CHEMISTRY METHOD 11/07/2024 11:58 AM [facility] Comment:Calculation based on the??Chronic Kidney Disease Epidemiology Collaboration (CKD-EPI) equation refit??without adjustment for race. BUN/Creatinine Ratio 24.2 LAB CHEMISTRY METHOD 11/07/2024 11:58 AM [facility] Calcium 9.1 8.5 - 10.5 mg/dL LAB CHEMISTRY METHOD 11/07/2024 11:58 AM [facility] AST (SGOT) 21 10 - 42 unit/L LAB CHEMISTRY METHOD 11/07/2024 11:58 AM [facility] ALT (SGPT) 31 10 - 60 unit/L LAB CHEMISTRY METHOD 11/07/2024 11:58 AM [facility] Alkaline Phosphatase 152(H) 42 - 121 unit/L LAB CHEMISTRY METHOD 11/07/2024 11:58 AM [facility] Total Protein 6.8 6.0 - 8.0 g/dL LAB CHEMISTRY METHOD 11/07/2024 11:58 AM [facility] Albumin 3.3 3.2 - 5.0 g/dL LAB CHEMISTRY METHOD 11/07/2024 11:58 AM [facility] Total Bilirubin 0.5 0.0 - 1.4 mg/dL LAB CHEMISTRY METHOD 11/07/2024 11:58 AM [facility] Blood Venous blood specimen / Unknown Venipuncture / Unknown 11/07/2024 8:03 AM EDT 11/07/2024 10:42 AM EDT us Giovanni Coffey MD LAB BLOOD ORDERABLES Final Resul t [facility] [address] [place] [address], [place] [phone] * (ABNORMAL) Urinalysis with reflex microscopic (11/06/2024 9:28 PM EDT) Specific [place] Urine 1.014 1.003 - 1.030 LAB URINALYSIS - AUTOMATED METHOD 11/07/2024 11:48 AM [facility] pH, Urine 6.0 5.0 - 8.0 pH LAB URINALYSIS - AUTOMATED METHOD 11/07/2024 11:48 AM [facility] Leukocytes, Urine Large(A) Negative LAB URINALYSIS - AUTOMATED METHOD 11/07/2024 11:48 AM [facility] Nitrite, Urine Positive(A) Negative LAB URINALYSIS - AUTOMATED METHOD 11/07/2024 11:48 AM [facility] Protein, Urine 30(A) <=Trace mg/dL LAB URINALYSIS - AUTOMATED METHOD 11/07/2024 11:48 AM [facility] Glucose, Urine Negative Negative mg/dL LAB URINALYSIS - AUTOMATED METHOD 11/07/2024 11:48 AM [facility] Ketones, Urine Negative Negative mg/dL LAB URINALYSIS - AUTOMATED METHOD 11/07/2024 11:48 AM [facility] Urobilinogen , Urine 0.2 0.2 - 1.0 mg/dL LAB URINALYSIS - AUTOMATED METHOD 11/07/2024 11:48 AM [facility] Bilirubin, Urine Negative Negative LAB URINALYSIS - AUTOMATED METHOD 11/07/2024 11:48 AM [facility] Blood, Urine Large(A) Negative LAB URINALYSIS - AUTOMATED METHOD 11/07/2024 11:48 AM [facility] RBC, Urine 7.7(H) 0 - 4 /HPF LAB URINALYSIS - AUTOMATED METHOD 11/07/2024 11:48 AM [facility] WBC, Urine 357.6(H) 0 - 4 /HPF LAB URINALYSIS - AUTOMATED METHOD 11/07/2024 11:48 AM [facility] Squamous Epithelial, Urine 12 0 - 60 /LPF LAB URINALYSIS - AUTOMATED METHOD 11/07/2024 11:48 AM [facility] Bacteria, Urine Many(A) Negative /HPF LAB URINALYSIS - AUTOMATED METHOD 11/07/2024 11:48 AM [facility] Hyaline Casts, Urine 0.4 0 - 3 /LPF LAB URINALYSIS - AUTOMATED METHOD 11/07/2024 11:48 AM [facility] Urine Urine specimen from urethra / Unknown Non-blood Collection / Unknown 11/06/2024 9:28 PM EDT 11/07/2024 10:51 AM EDT us Giovanni Coffey MD LAB URINE ORDERABLES Final Resul t [facility] [address] [place] [address], * (ABNORMAL) Culture urine (11/06/2024 9:28 PM EDT) Culture, Urine >100,000 CFU/mL Escherichia coli(A) DANO 11/09/2024 9:22 AM T [facility] Urine Urine specimen from urethra [...] MICROBIOLOGY - GENERAL ORDER ERWIN Final Result [facility] [address] [place] [address], [place] [phone] * External Vascular Ultrasound (10/23/2024) Only the most recent of4 resultswithin the time period is included. Anatomical Region Laterality Modality Ultrasound us Provider [facility] CV VASCULAR PROCEDURES F inal Result * Lipid panel with reflex to direct LDL (10/17/2024 8:47 AM EDT) Cholesterol 173 0 - 200 mg/dL LAB CHEMISTRY METHOD 10/17/2024 11:42 AM EDT [facility] Triglycerides 101 0 - 150 mg/dL LAB CHEMISTRY METHOD 10/17/2024 11:42 AM EDT [facility] HDL 55 >=40 mg/dL LAB CHEMISTRY METHOD 10/17/2024 11:42 AM EDT [facility] LDL Calculated 98 0 - 100 mg/dL LAB CHEMISTRY METHOD 10/17/2024 11:42 AM EDT [facility] VLDL Cholesterol Waldemar 20.2 mg/dL LAB CHEMISTRY METHOD 10/17/2024 11:42 AM EDT [facility] Non HDL Chol. (LDL+VLDL) 118 <145 mg/dL LAB CHEMISTRY METHOD 10/17/2024 11:42 AM EDT [facility] Chol/HDL Ratio 3.1 0.0 - 4.4 LAB CHEMISTRY METHOD 10/17/2024 11:42 AM EDT [facility] Blood Venous blood specimen / Unknown Venipuncture / Unknown 10/17/2024 8:47 AM EDT 10/17/2024 10:31 AM EDT Giovanni Coffey MD LAB BLOOD ORDERABLES Final Resul t [facility] [address] [place] [address], [place] [phone] * External Xray Report (10/13/2024) Only the [...] is recommended in 1 year. MAMMO LOCATION: [facility], [address] [place] [address], [address], . -------- FINAL REPORT -------- Dictated By: Karina Chang Dictated Date: 08/15/2024 17:16 ET Assigned Physician: Karina Chang Reviewed and Electronically Signed By: Karina Chang Signed Date: 08/15/2024 17:19 ET Workstation ID: [id number] Transcribed By: Self Edit Transcribed Date: 08/15/2024 [...] is recommended in 1 year. MAMMO LOCATION: [facility], [address] [place] [address], [address], . -------- FINAL REPORT -------- Dictated By: Karina hCang Dictated Date: 08/15/2024 17:16 ET Assigned Physician: Karina Chang Reviewed and Electronically Signed By: Karina Chang Signed Date: 08/15/2024 17:19 ET Workstation ID: [id number] Transcribed By: Self Edit Transcribed Date: 08/15/2024 [...] IMPRESSION: ?? Osteoporosis by WHO criteria. The [facility] Department of Internal Medicine recommends [...] alternative screening schedule based on may Amaya., [facility] August 24, 2011 for patients [...] IMPRESSION: IMPRESSION: Osteoporosis by WHO criteria. The [facility] Department of Internal Medicine recommendsusing [...] DXA PROCEDURES Final Result * Colonoscopy (05/08/2017) [facility] Signature Colonoscopy no interpretatio n, abstacted Anatomical Region Laterality Modality Other Historical Provider HEALTH MAINTENANCE Final Result from Last 3 Months or Most Recently Relevant to Health Maintenance Insurance [facility] MEDICARE ADVANTAGE [employer] [place] [place] MEDICARE ADVANTAGE MEDICARE [facility] Care Teams Telephone Order Supervisor Relationship Specialty Start Date End Date Carlita Villegas MD [address] [place] [phone] PCP - General 08/25/22
--- OUTSIDE RECORDS SUMMARY | 2024-11-10 13:00 | XMS_ITS | Encounter Summary ---
Author Organization [facility] Address [address] [place] [address] Care Team Providers Care Political Consultant Name Role Phone Carlita Villegas MD Primary Care Provider [phone] Encounter Details Date Type Department Care Team (Late Contact Info) Description 11/01/[address] [facility] Lab 299 [facility] [place] [address] Giovanni Coffey MD [address] [place] [address], [phone] Essential (primary) hypertension; Hyperlipidemia, unspecified Social [...] 10:00 AM EST Office Visit Endocrinology - [place] [address] [place] [address] Gisell Villegas PA [address] [place] [address] 08/26/2025 10:00 AM EST Office Visit Vascular Surgery - [place] [address] [place] [address] Priya Lopez MD [address] [place] [address] documented as of this encounter Procedures Procedure [...] mmol/L LAB CHEMISTRY METHOD 11/03/2024 12:06 PM [facility] Potassium 4.2 3.5 - 5.5 mmol/L LAB CHEMISTRY METHOD 11/03/2024 12:06 PM [facility] Chloride 105 96 - 110 mmol/L LAB CHEMISTRY METHOD 11/03/2024 12:06 PM [facility] CO2 27 21 - 32 mmol/L LAB CHEMISTRY METHOD 11/03/2024 12:06 PM [facility] Anion Gap 8 3 - 11 LAB CHEMISTRY METHOD 11/03/2024 12:06 PM [facility] Glucose 83 70 - 100 mg/dL LAB CHEMISTRY METHOD 11/03/2024 12:06 PM [facility] BUN 14 5 - 25 mg/dL LAB CHEMISTRY METHOD 11/03/2024 12:06 PM [facility] Creatinine 0.59 0.50 - 1.10 mg/dL LAB CHEMISTRY METHOD 11/03/2024 12:06 PM [facility] eGFR 91 >=60 mL/min/1. 73m2 LAB CHEMISTRY METHOD 11/03/2024 12:06 PM [facility] Comment:Calculation based on the??Chronic Kidney Disease Epidemiology Collaboration (CKD-EPI) equation refit??without adjustment for race. BUN/Creatinine Ratio 23.7 LAB CHEMISTRY METHOD 11/03/2024 12:06 PM [facility] Calcium 9.3 8.5 - 10.5 mg/dL LAB CHEMISTRY METHOD 11/03/2024 12:06 PM [facility] AST (SGOT) 27 10 - 42 unit/L LAB CHEMISTRY METHOD 11/03/2024 12:06 PM [facility] ALT (SGPT) 42 10 - 60 unit/L LAB CHEMISTRY METHOD 11/03/2024 12:06 PM [facility] Alkaline Phosphatase 171(H) 42 - 121 unit/L LAB CHEMISTRY METHOD 11/03/2024 12:06 PM [facility] Total Protein 6.5 6.0 - 8.0 g/dL LAB CHEMISTRY METHOD 11/03/2024 12:06 PM [facility] Albumin 3.0(L) 3.2 - 5.0 g/dL LAB CHEMISTRY METHOD 11/03/2024 12:06 PM [facility] Total Bilirubin 0.4 0.0 - 1.4 mg/dL LAB CHEMISTRY METHOD 11/03/2024 12:06 PM [facility] Blood Venous blood specimen / Unknown Venipuncture / Unknown 11/03/2024 5:42 AM EDT 11/03/2024 10:29 AM EDT us Giovanni Coffey MD LAB BLOOD ORDERABLES Final Resul t [facility] [address] [place] [address], [place] [phone] * (ABNORMAL) Complete blood count (11/03/2024 5:42 AM EDT) WBC 5.5 4.8 - 10.8 K/mcL LAB HEMETOLOGY METHOD 11/03/2024 11:18 AM [facility] RBC 3.60(L) 3.80 - 4.80 M/mcL LAB HEMETOLOGY METHOD 11/03/2024 11:18 AM [facility] Hemoglobin 11.2(L) 11.5 - 16.0 g/dL LAB HEMETOLOGY METHOD 11/03/2024 11:18 AM [facility] Hematocrit 34.7(L) 35.0 - 47.0 % LAB HEMETOLOGY METHOD 11/03/2024 11:18 AM [facility] MCV 96.9 79.0 - 98.0 FL LAB HEMETOLOGY METHOD 11/03/2024 11:18 AM [facility] MCH 31.3 27.0 - 32.0 pcg LAB HEMETOLOGY METHOD 11/03/2024 11:18 AM [facility] MCHC 32.3 32.0 - 37.0 g/dL LAB HEMETOLOGY METHOD 11/03/2024 11:18 AM [facility] RDW 13.3 11.0 - 15.0 % LAB HEMETOLOGY METHOD 11/03/2024 11:18 AM [facility] Platelets 253 130 - 400 K/mcL LAB HEMETOLOGY METHOD 11/03/2024 11:18 AM [facility] MPV 10.4 7.0 - 11.0 FL LAB HEMETOLOGY METHOD 11/03/2024 11:18 AM [facility] NRBC 0.0 <1.0 % LAB HEMETOLOGY METHOD 11/03/2024 11:18 AM [facility] NRBC Absolute 0.00 <0.10 K/mcL LAB HEMETOLOGY METHOD 11/03/2024 11:18 AM [facility] Blood Venous blood specimen / Unknown Venipuncture / Unknown 11/03/2024 5:42 AM EDT 11/03/2024 10:29 AM EDT us Giovanni Coffey MD LAB BLOOD ORDERABLES Final Resul t [facility] [address] [place] [address], documented in this encounter Visit Diagnoses Diagnosis Essential (primary) hypertension Unspecified essential hypertension Hyperlipidemia, unspecified documented in this encounter Care Teams Political Consultant Relationship Specialty Start Date End Date Carlita Villegas MD [address] [place] [address] PCP - General 08/25/22 documented as of this encounter
--- OUTSIDE RECORDS SUMMARY | 2024-11-10 13:00 | XMS_ITS | Encounter Summary ---
Author Organization [facility] Address [address] [place] [address] Care Team Providers Care Binding Cutter Synthetic Cloth Name Role Phone Carlita Villegas MD Primary Care Provider [phone] Encounter Details Date Type Department Care Team (Late Contact Info) Description 10/27/[address] [facility] - Main Lab 299 [facility] [place] [address] Giovanni Coffey MD [address] [place] [address], [phone] Essential (primary) hypertension; Hyperlipidemia, unspecified Social [...] 10:00 AM EST Office Visit Endocrinology - [place] [address] [place] [address] Gisell Villegas PA [address] [place] [address] 08/26/2025 10:00 AM EST Office Visit Vascular Surgery - [place] [address] [place] [address] Priya Lopez MD [address] [place] [address] documented as of this encounter Procedures Procedure [...] mmol/L LAB CHEMISTRY METHOD 10/27/2024 12:[address] [facility] Potassium 4.9 3.5 - 5.5 mmol/L LAB CHEMISTRY METHOD 10/27/2024 12:[address] [facility] Comment:Hemolysis present Chloride 104 96 - 110 mmol/L LAB CHEMISTRY METHOD 10/27/2024 12:[address] [facility] CO2 25 21 - 32 mmol/L LAB CHEMISTRY METHOD 10/27/2024 12:[address] [facility] Anion Gap 8 3 - 11 LAB CHEMISTRY METHOD 10/27/2024 12:[address] [facility] Glucose 80 70 - 100 mg/dL LAB CHEMISTRY METHOD 10/27/2024 12:[address] [facility] BUN 18 5 - 25 mg/dL LAB CHEMISTRY METHOD 10/27/2024 12:[address] [facility] Creatinine 0.69 0.50 - 1.10 mg/dL LAB CHEMISTRY METHOD 10/27/2024 12:[address] [facility] eGFR 88 >=60 mL/min/1. 73m2 LAB CHEMISTRY METHOD 10/27/2024 12:56 PM EDT [facility] Comment:Calculation based on the??Chronic Kidney Disease Epidemiology Collaboration (CKD-EPI) equation refit??without adjustment for race. BUN/Creatinine Ratio 26.1 LAB CHEMISTRY METHOD 10/27/2024 12:56 PM EDT [facility] Calcium 8.9 8.5 - 10.5 mg/dL LAB CHEMISTRY METHOD 10/27/2024 12:56 PM T [facility] AST (SGOT) 67(H) 10 - 42 unit/L LAB CHEMISTRY METHOD 10/27/2024 12:[address] [facility] Comment:Hemolysis present ALT (SGPT) 73(H) 10 - 60 unit/L LAB CHEMISTRY METHOD 10/27/2024 12:[address] [facility] Alkaline Phosphatase 188(H) 42 - 121 unit/L LAB CHEMISTRY METHOD 10/27/2024 12:[address] [facility] Total Protein 6.9 6.0 - 8.0 g/dL LAB CHEMISTRY METHOD 10/27/2024 12:[address] [facility] Albumin 3.1(L) 3.2 - 5.0 g/dL LAB CHEMISTRY METHOD 10/27/2024 12:[address] [facility] Total Bilirubin 0.5 0.0 - 1.4 mg/dL LAB CHEMISTRY METHOD 10/27/2024 12:56 PM T [facility] Blood Venous blood specimen / Unknown Venipuncture / Unknown 10/27/2024 6:25 AM EDT 10/27/2024 10:32 AM EDT us Giovanni Coffey MD LAB BLOOD ORDERABLES Final Resul t [facility] [address] [place] [address], * Complete blood count (10/27/2024 6:25 AM EDT) [facility] WBC 5.0 4.8 - 10.8 K/mcL LAB HEMETOLOGY METHOD 10/27/2024 11:[address] [facility] RBC 3.80 3.80 - 4.80 M/mcL LAB HEMETOLOGY METHOD 10/27/2024 11:[address] [facility] Hemoglobin 12.0 11.5 - 16.0 g/dL LAB HEMETOLOGY METHOD 10/27/2024 11:[address] [facility] Hematocrit 36.9 35.0 - 47.0 % LAB HEMETOLOGY METHOD 10/27/2024 11:[address] [facility] MCV 97.9 79.0 - 98.0 FL LAB HEMETOLOGY METHOD 10/27/2024 11:[address] [facility] MCH 31.8 27.0 - 32.0 pcg LAB HEMETOLOGY METHOD 10/27/2024 11:[address] [facility] MCHC 32.5 32.0 - 37.0 g/dL LAB HEMETOLOGY METHOD 10/27/2024 11:[address] [facility] RDW 13.3 11.0 - 15.0 % LAB HEMETOLOGY METHOD 10/27/2024 11:[address] [facility] Platelets 293 130 - 400 K/mcL LAB HEMETOLOGY METHOD 10/27/2024 11:[address] [facility] MPV 11.0 7.0 - 11.0 FL LAB HEMETOLOGY METHOD 10/27/2024 11:[address] [facility] NRBC 0.0 <1.0 % LAB HEMETOLOGY METHOD 10/27/2024 11:[address] [facility] NRBC Absolute 0.00 <0.10 K/mcL LAB HEMETOLOGY METHOD 10/27/2024 11:30 AM EDT [facility] Blood Venous blood specimen / Unknown Venipuncture / Unknown 10/27/2024 6:25 AM EDT 10/27/2024 10:32 AM EDT us Giovanni Coffey MD LAB BLOOD ORDERABLES Final Resul t [facility] [address] [place] [address], documented in this encounter Visit Diagnoses Diagnosis Essential (primary) hypertension Unspecified essential hypertension Hyperlipidemia, unspecified documented in this encounter Care Teams Binding Cutter Synthetic Cloth Relationship Specialty Start Date End Date Carlita Villegas MD [address] [place] [address] PCP - General 08/25/22 documented as of this encounter
--- OUTSIDE RECORDS SUMMARY | 2024-11-10 13:00 | XMS_ITS | Encounter Summary ---
Author Organization [facility] Address [address] [place] [address] Care Team Providers Care Gse Mechanic Name Role Phone Carlita Villegas MD Primary Care Provider [phone] Encounter Details Date Type Department Care Team (Late st Contact Info) Description 10/23/2024 Lab Requisition [facility] - Main Lab [address] [facility] [place] [address] Giovanni Coffey MD [address] [place] [phone] Essential (primary) hypertension; Hyperlipidemia, unspecified; Unspecified [...] 10:00 AM EST Office Visit Endocrinology - [place] [address] [place], [place] [phone] Gisell Villegas PA [address] [place], [place] 08/26/2025 10:00 AM EST Office Visit Vascular Surgery - [place] [address] [place] [address] Priya Lopez MD [address] [place] [address] documented as of this encounter Procedures Procedure [...] mmol/L LAB CHEMISTRY METHOD 10/24/2024 11:18 AM [facility] Potassium 4.6 3.5 - 5.5 mmol/L LAB CHEMISTRY METHOD 10/24/2024 11:18 AM [facility] Chloride 106 96 - 110 mmol/L LAB CHEMISTRY METHOD 10/24/2024 11:18 AM [facility] CO2 28 21 - 32 mmol/L LAB CHEMISTRY METHOD 10/24/2024 11:18 AM [facility] Anion Gap 5 3 - 11 LAB CHEMISTRY METHOD 10/24/2024 11:18 AM [facility] Glucose 84 70 - 100 mg/dL LAB CHEMISTRY METHOD 10/24/2024 11:18 AM [facility] BUN 19 5 - 25 mg/dL LAB CHEMISTRY METHOD 10/24/2024 11:18 AM [facility] Creatinine 0.72 0.50 - 1.10 mg/dL LAB CHEMISTRY METHOD 10/24/2024 11:18 AM [facility] eGFR 85 >=60 mL/min/1. 73m2 LAB CHEMISTRY METHOD 10/24/2024 11:18 AM [facility] Comment:Calculation based on the??Chronic Kidney Disease Epidemiology Collaboration (CKD-EPI) equation refit??without adjustment for race. BUN/Creatinine Ratio 26.4 LAB CHEMISTRY METHOD 10/24/2024 11:18 AM [facility] Calcium 8.6 8.5 - 10.5 mg/dL LAB CHEMISTRY METHOD 10/24/2024 11:18 AM [facility] AST (SGOT) 62(H) 10 - 42 unit/L LAB CHEMISTRY METHOD 10/24/2024 11:18 AM [facility] ALT (SGPT) 91(H) 10 - 60 unit/L LAB CHEMISTRY METHOD 10/24/2024 11:18 AM [facility] Alkaline Phosphatase 156(H) 42 - 121 unit/L LAB CHEMISTRY METHOD 10/24/2024 11:18 AM [facility] Total Protein 6.4 6.0 - 8.0 g/dL LAB CHEMISTRY METHOD 10/24/2024 11:18 AM [facility] Albumin 2.9(L) 3.2 - 5.0 g/dL LAB CHEMISTRY METHOD 10/24/2024 11:18 AM [facility] Total Bilirubin 0.5 0.0 - 1.4 mg/dL LAB CHEMISTRY METHOD 10/24/2024 11:18 AM [facility] Blood Venous blood specimen / Unknown Venipuncture / Unknown 10/24/2024 5:10 AM EDT 10/24/2024 9:54 AM EDT us Giovanni Coffey MD LAB BLOOD ORDERABLES Final Resul t [facility] [address] [place] [address], * (ABNORMAL) Complete blood count (10/24/2024 5:10 AM EDT) WBC 5.1 4.8 - 10.8 K/mcL LAB HEMETOLOGY METHOD 10/24/2024 10:04 AM EDT [facility] RBC 3.50(L) 3.80 - 4.80 M/mcL LAB HEMETOLOGY METHOD 10/24/2024 10:04 AM EDT [facility] Hemoglobin 10.9(L) 11.5 - 16.0 g/dL LAB HEMETOLOGY METHOD 10/24/2024 10:04 AM T [facility] Hematocrit 34.2(L) 35.0 - 47.0 % LAB HEMETOLOGY METHOD 10/24/2024 [facility] MCV 98.6(H) 79.0 - 98.0 FL LAB HEMETOLOGY METHOD 10/24/2024 10:[facility] MCH 31.4 27.0 - 32.0 pcg LAB HEMETOLOGY METHOD 10/24/2024 10:04 AM EDT [facility] MCHC 31.9(L) 32.0 - 37.0 g/dL LAB HEMETOLOGY METHOD 10/24/2024 10:04 AM [facility] RDW 13.4 11.0 - 15.0 % LAB HEMETOLOGY METHOD 10/24/2024 10:04 AM [facility] Platelets 253 130 - 400 K/mcL LAB HEMETOLOGY METHOD 10/24/2024 10:04 AM [facility] MPV 10.7 7.0 - 11.0 FL LAB HEMETOLOGY METHOD 10/24/2024 10:04 AM EDT [facility] NRBC 0.0 <1.0 % LAB HEMETOLOGY METHOD 10/24/2024 10:04 AM EDT [facility] NRBC Absolute 0.00 <0.10 K/mcL LAB HEMETOLOGY METHOD 10/24/2024 10:04 AM EDT [facility] Blood Venous blood specimen / Unknown Venipuncture / Unknown 10/24/2024 5:10 AM EDT 10/24/2024 9:54 AM EDT us Giovanni Coffey MD LAB BLOOD ORDERABLES Final Resul t Performing Organization Address City/[facility]/ZIP Co de Phone Number [facility] [address] [place] [address], [place] [phone] * (ABNORMAL) C-reactive protein (10/24/2024 5:10 AM EDT) C-Reactive Protein 1.44(H) <=0.50 mg/dL LAB CHEMISTRY METHOD 10/24/2024 11:18 AM EDT [facility] Blood Venous blood specimen / Unknown Venipuncture / Unknown 10/24/2024 5:10 AM EDT 10/24/2024 9:54 AM EDT us Giovanni Coffey MD LAB BLOOD ORDERABLES Final Resul t Performing Organization Address City/[facility]/ZIP Co de Phone Number [facility] [address] [place] [address], [place] [phone] documented in this encounter Visit Diagnoses Diagnosis Essential (primary) hypertension Unspecified essential hypertension Hyperlipidemia, unspecified Unspecified osteoarthritis, unspecified site Encounter for other orthopedic aftercare documented in this encounter Care Teams Gse Mechanic Relationship Specialty Start Date End Date Carlita Villegas MD [address] [place] [phone] PCP - General 08/25/22 documented as of this encounter
--- OUTSIDE RECORDS SUMMARY | 2024-11-10 13:00 | XMS_ITS | Encounter Summary ---
Author Organization [facility] Address [address] [place] [address] Care Team Providers Care Drainage Inspector Name Role Phone Carlita Villegas MD Primary Care Provider [phone] Encounter Details Date Type Department Care Team (Late Contact Info) Description 11/09/2024 Lab Requisition [facility] - Main Lab 299 [facility] [place] [address] Giovanni Coffey MD [address] [place] [address], [phone] Essential (primary) hypertension; Hyperlipidemia, unspecified Social [...] 10:00 AM EST Office Visit Endocrinology - [place] [address] [place] [address] Gisell Villegas PA [address] [place] [address] 08/26/2025 10:00 AM EST Office Visit Vascular Surgery - [place] [address] [place] [address] Priya Lopez MD [facility] [address] [place] [address] Pending Results Name Type Priority Associated Diagnoses Date /Time Comprehensive metabolic panel Lab Routine Essential (primary) hypertension Hyperlipidemia, unspecified 11/10/2024 6:40 AM EDT documented as of this encounter Procedures Procedure Name Priority Date/Time Associated Diagnosis Comments COMPLETE BLOOD COUNT Routine 11/10/2024 6:40 AM EDT Essential (primary) hypertension Hyperlipidemia, unspecified documented in this encounter Results * (ABNORMAL) Complete blood count (11/10/2024 6:40 AM EDT) WBC 3.7(L) 4.8 - 10.8 K/mcL LAB HEMETOLOGY METHOD 11/10/2024 11:50 AM [facility] RBC 3.70(L) 3.80 - 4.80 M/mcL LAB HEMETOLOGY METHOD 11/10/2024 11:50 AM [facility] Hemoglobin 11.6 11.5 - 16.0 g/dL LAB HEMETOLOGY METHOD 11/10/2024 11:50 AM [facility] Hematocrit 36.4 35.0 - 47.0 % LAB HEMETOLOGY METHOD 11/10/2024 11:50 AM [facility] MCV 98.4(H) 79.0 - 98.0 FL LAB HEMETOLOGY METHOD 11/10/2024 11:50 AM [facility] MCH 31.4 27.0 - 32.0 pcg LAB HEMETOLOGY METHOD 11/10/2024 11:50 AM [facility] MCHC 31.9(L) 32.0 - 37.0 g/dL LAB HEMETOLOGY METHOD 11/10/2024 11:50 AM EDT [facility] RDW 13.2 11.0 - 15.0 % LAB HEMETOLOGY METHOD 11/10/2024 11:[address] [facility] Platelets 210 130 - 400 K/mcL LAB HEMETOLOGY METHOD 11/10/2024 11:[address] [facility] MPV 10.7 7.0 - 11.0 FL LAB HEMETOLOGY METHOD 11/10/2024 11:[address] [facility] NRBC 0.0 <1.0 % LAB HEMETOLOGY METHOD 11/10/2024 11:[address] [facility] NRBC Absolute 0.00 <0.10 K/mcL LAB HEMETOLOGY METHOD 11/10/2024 11:[address] [facility] Blood Venous blood specimen / Unknown Venipuncture / Unknown 11/10/2024 6:40 AM EDT 11/10/2024 11:16 AM EDT us Giovanni Coffey MD LAB BLOOD ORDERABLES Final Resul t [facility] [address] [place] [address], documented in this encounter Visit Diagnoses Diagnosis Essential (primary) hypertension Unspecified essential hypertension Hyperlipidemia, unspecified documented in this encounter Care Teams Drainage Inspector Relationship Specialty Start Date End Date Carlita Villegas MD [address] [place] [address] PCP - General 08/25/22 documented as of this encounter
== END 2024-11-10 11:44 | disposition home or self-care (01) ==
LOC: HO.HOS 10:53
DX: S32.19XA Other fracture of sacrum, initial encounter for closed fracture (principal); S32.591A Other specified fracture of right pubis, initial encounter for closed fracture
CPT/HCPCS: 99213

== ENCOUNTER → 2024-11-10 11:14 | Outpatient (BNV) | payer MEDICARE, SELFPAY | PROVIDERS: Visit Provider Radiology Diagnostic Radiology | DX: S32.501A Unspecified fracture of right pubis, initial encounter for closed fracture (principal) | CPT/HCPCS: 72170 ==

== ENCOUNTER 2024-11-14 08:20 | Outpatient (REF) | payer MEDICARE, SELFPAY ==
--- NOTE | ~2024-11-14 | XR_ITS ---
CLINICAL HISTORY: M25.531 - Pain in right wrist 3 view right wrist Comparison: 10/31/2024 Findings: No significant change or healing response in distal humeral or ulnar fractures with surgical hardware in position No significant loss of joint space, osteophyte, or erosions. No of the radiopaque foreign body. IMPRESSION: 1. No significant change from prior exam This document has been electronically signed by: Jovan Rosario MD on 11/15/2024 08:39:49
--- OUTSIDE RECORDS SUMMARY | 2024-11-14 08:25 | XMS_ITS | Encounter Summary ---
Author Organization [facility] Address [address] [place] [address] Care Team Providers Care Decatizer Name Role Phone Carlita Villegas MD Primary Care Provider Encounter Details Date Type Department Care Team (Late st Contact Info) Description 11/06/2024 Lab Requisition [facility] - Main Lab [address] [facility] [place] [address] Giovanni Coffey MD [address] [place] [address], [phone] Essential (primary) hypertension; Hyperlipidemia, unspecified; Unspecified [...] 10:00 AM EST Office Visit Endocrinology - [place] [address] [place], [place] [phone] Gisell Villegas PA [address] [place], [place] 08/26/2025 10:00 AM EST Office Visit Vascular Surgery - [place] [address] [place] [address] Priya Lopez MD [address] [place] [address] documented as of this encounter Procedures Procedure [...] mmol/L LAB CHEMISTRY METHOD 11/07/2024 11:58 AM [facility] Potassium 4.0 3.5 - 5.5 mmol/L LAB CHEMISTRY METHOD 11/07/2024 11:58 AM [facility] Chloride 105 96 - 110 mmol/L LAB CHEMISTRY METHOD 11/07/2024 11:58 AM [facility] CO2 28 21 - 32 mmol/L LAB CHEMISTRY METHOD 11/07/2024 11:58 AM [facility] Anion Gap 6 3 - 11 LAB CHEMISTRY METHOD 11/07/2024 11:58 AM [facility] Glucose 86 70 - 100 mg/dL LAB CHEMISTRY METHOD 11/07/2024 11:58 AM [facility] BUN 15 5 - 25 mg/dL LAB CHEMISTRY METHOD 11/07/2024 11:58 AM [facility] Creatinine 0.62 0.50 - 1.10 mg/dL LAB CHEMISTRY METHOD 11/07/2024 11:58 AM [facility] eGFR 90 >=60 mL/min/1. 73m2 LAB CHEMISTRY METHOD 11/07/2024 11:58 AM [facility] Comment:Calculation based on the??Chronic Kidney Disease Epidemiology Collaboration (CKD-EPI) equation refit??without adjustment for race. BUN/Creatinine Ratio 24.2 LAB CHEMISTRY METHOD 11/07/2024 11:58 AM [facility] Calcium 9.1 8.5 - 10.5 mg/dL LAB CHEMISTRY METHOD 11/07/2024 11:58 AM [facility] AST (SGOT) 21 10 - 42 unit/L LAB CHEMISTRY METHOD 11/07/2024 11:58 AM [facility] ALT (SGPT) 31 10 - 60 unit/L LAB CHEMISTRY METHOD 11/07/2024 11:58 AM [facility] Alkaline Phosphatase 152(H) 42 - 121 unit/L LAB CHEMISTRY METHOD 11/07/2024 11:58 AM [facility] Total Protein 6.8 6.0 - 8.0 g/dL LAB CHEMISTRY METHOD 11/07/2024 11:58 AM [facility] Albumin 3.3 3.2 - 5.0 g/dL LAB CHEMISTRY METHOD 11/07/2024 11:58 AM [facility] Total Bilirubin 0.5 0.0 - 1.4 mg/dL LAB CHEMISTRY METHOD 11/07/2024 11:58 AM [facility] Blood Venous blood specimen / Unknown Venipuncture / Unknown 11/07/2024 8:03 AM EDT 11/07/2024 10:42 AM EDT us Giovanni Coffey MD LAB BLOOD ORDERABLES Final Resul t [facility] [address] [place] [address], * (ABNORMAL) Complete blood count (11/07/2024 8:03 AM EDT) WBC 4.9 4.8 - 10.8 K/mcL LAB HEMETOLOGY METHOD 11/07/2024 11:17 AM EDT [facility] RBC 3.70(L) 3.80 - 4.80 M/mcL LAB HEMETOLOGY METHOD 11/07/2024 11:17 AM EDT [facility] Hemoglobin 11.5 11.5 - 16.0 g/dL LAB HEMETOLOGY METHOD 11/07/2024 11:17 AM [facility] Hematocrit 35.7 35.0 - 47.0 % LAB HEMETOLOGY METHOD 11/07/2024 11:17 AM EDT [facility] MCV 96.7 79.0 - 98.0 FL LAB HEMETOLOGY METHOD 11/07/2024 11:17 AM EDT [facility] MCH 31.2 27.0 - 32.0 pcg LAB HEMETOLOGY METHOD 11/07/2024 11:17 AM [facility] MCHC 32.2 32.0 - 37.0 g/dL LAB HEMETOLOGY METHOD 11/07/2024 11:17 AM EDT [facility] RDW 13.4 11.0 - 15.0 % LAB HEMETOLOGY METHOD 11/07/2024 11:17 AM EDT [facility] Platelets 222 130 - 400 K/mcL LAB HEMETOLOGY METHOD 11/07/2024 11:17 AM [facility] MPV 10.4 7.0 - 11.0 FL LAB HEMETOLOGY METHOD 11/07/2024 11:17 AM EDT [facility] NRBC 0.0 <1.0 % LAB HEMETOLOGY METHOD 11/07/2024 11:17 AM EDT [facility] NRBC Absolute 0.00 <0.10 K/mcL LAB HEMETOLOGY METHOD 11/07/2024 11:17 AM EDT [facility] Blood Venous blood specimen / Unknown Venipuncture / Unknown 11/07/2024 8:03 AM EDT 11/07/2024 10:40 AM EDT Giovanni Coffey MD LAB BLOOD ORDERABLES Final Resul t Performing Organization Address City/[facility]/ZIP Co de Phone Number [facility] [address] [place] [address], [place] [phone] * (ABNORMAL) C-reactive protein (11/07/2024 8:03 AM EDT) C-Reactive Protein 0.97(H) <=0.50 mg/dL LAB CHEMISTRY METHOD 11/07/2024 11:56 AM EDT [facility] Blood Venous blood specimen / Unknown Venipuncture / Unknown 11/07/2024 8:03 AM EDT 11/07/2024 10:42 AM EDT Giovanni Coffey MD LAB BLOOD ORDERABLES Final Resul t Performing Organization Address City/[facility]/ZIP Co de Phone Number [facility] [address] [place] [address], [place] [phone] documented in this encounter Visit Diagnoses Diagnosis Essential (primary) hypertension Unspecified essential hypertension Hyperlipidemia, unspecified Unspecified osteoarthritis, unspecified site Encounter for other orthopedic aftercare documented in this encounter Care Teams Decatizer Relationship Specialty Start Date End Date Carlita Villegas MD [address] [place] [address] PCP - General 08/25/22 documented as of this encounter
--- OUTSIDE RECORDS SUMMARY | 2024-11-14 08:25 | XMS_ITS | Encounter Summary ---
Author Organization [facility] Address [address] [place] [address] Care Team Providers Care Geospatial Analyst Name Role Phone Carlita Villegas MD Primary Care Provider [phone] Encounter Details Date Type Department Care Team (Late Contact Info) Description 10/17/2024 Lab Requisition [facility] - Main Lab 299 [facility] [place] [address] Giovanni Coffey MD [address] [place] [address], [phone] Essential (primary) hypertension; Hyperlipidemia, unspecified Social [...] 10:00 AM EST Office Visit Endocrinology - [place] [address] [place] [address] Gisell Villegas PA [address] [place] [address] 08/26/2025 10:00 AM EST Office Visit Vascular Surgery - [place] [address] [place] [address] Priya Lopez MD [address] [place] [address] documented as of this encounter Procedures Procedure [...] LAB CHEMISTRY METHOD 10/17/2024 11:[address] [facility] Blood Venous blood specimen / Unknown Venipuncture / Unknown 10/17/2024 8:47 AM EDT 10/17/2024 10:31 AM EDT us Giovanni Coffey MD LAB BLOOD ORDERABLES Final Resul t [facility] [address] [place] [address], * Lipid panel with reflex to direct LDL (10/17/2024 8:47 AM EDT) Cholesterol 173 0 - 200 mg/dL LAB CHEMISTRY METHOD 10/17/2024 11:[address] [facility] Triglycerides 101 0 - 150 mg/dL LAB CHEMISTRY METHOD 10/17/2024 11:[address] [facility] HDL 55 >=40 mg/dL LAB CHEMISTRY METHOD 10/17/2024 11:[address] [facility] LDL Calculated 98 0 - 100 mg/dL LAB CHEMISTRY METHOD 10/17/2024 11:[address] [facility] VLDL Cholesterol Waldemar 20.2 mg/dL LAB CHEMISTRY METHOD 10/17/2024 11:[address] [facility] Non HDL Chol. (LDL+VLDL) 118 <145 mg/dL LAB CHEMISTRY METHOD 10/17/2024 11:42 AM [facility] Chol/HDL Ratio 3.1 0.0 - 4.4 LAB CHEMISTRY METHOD 10/17/2024 11:42 AM [facility] Blood Venous blood specimen / Unknown Venipuncture / Unknown 10/17/2024 8:47 AM EDT 10/17/2024 10:31 AM EDT us Giovanni Coffey MD LAB BLOOD ORDERABLES Final Resul t [facility] [address] [place] [address], [place] [phone] * (ABNORMAL) Comprehensive metabolic panel (10/17/2024 8:47 AM EDT) Sodium 138 133 - 145 mmol/L LAB CHEMISTRY METHOD 10/17/2024 11:[address] [facility] Potassium 3.8 3.5 - 5.5 mmol/L LAB CHEMISTRY METHOD 10/17/2024 11:41 AM [facility] Chloride 105 96 - 110 mmol/L LAB CHEMISTRY METHOD 10/17/2024 11:41 AM [facility] CO2 28 21 - 32 mmol/L LAB CHEMISTRY METHOD 10/17/2024 [facility] Anion Gap 5 3 - 11 LAB CHEMISTRY METHOD 10/17/2024 11:41 AM [facility] Glucose 128(H) 70 - 100 mg/dL LAB CHEMISTRY METHOD 10/17/2024 11:41 AM [facility] BUN 16 5 - 25 mg/dL LAB CHEMISTRY METHOD 10/17/2024 11:41 AM [facility] Creatinine 0.65 0.50 - 1.10 mg/dL LAB CHEMISTRY METHOD 10/17/2024 11:41 AM [facility] eGFR 89 >=60 mL/min/1. 73m2 LAB CHEMISTRY METHOD 10/17/2024 11:41 AM [facility] Comment:Calculation based on the??Chronic Kidney Disease Epidemiology Collaboration (CKD-EPI) equation refit??without adjustment for race. BUN/Creatinine Ratio 24.6 LAB CHEMISTRY METHOD 10/17/2024 11:41 AM [facility] Calcium 8.8 8.5 - 10.5 mg/dL LAB CHEMISTRY METHOD 10/17/2024 11:41 AM [facility] AST (SGOT) 65(H) 10 - 42 unit/L LAB CHEMISTRY METHOD 10/17/2024 11:41 AM [facility] ALT (SGPT) 47 10 - 60 unit/L LAB CHEMISTRY METHOD 10/17/2024 11:41 AM [facility] Alkaline Phosphatase 60 42 - 121 unit/L LAB CHEMISTRY METHOD 10/17/2024 11:41 AM [facility] Total Protein 6.2 6.0 - 8.0 g/dL LAB CHEMISTRY METHOD 10/17/2024 11:41 AM [facility] Albumin 2.8(L) 3.2 - 5.0 g/dL LAB CHEMISTRY METHOD 10/17/2024 11:41 AM [facility] Total Bilirubin 0.7 0.0 - 1.4 mg/dL LAB CHEMISTRY METHOD 10/17/2024 11:[address] [facility] Blood Venous blood specimen / Unknown Venipuncture / Unknown 10/17/2024 8:47 AM EDT 10/17/2024 10:31 AM EDT us Giovanni Coffey MD LAB BLOOD ORDERABLES Final Resul t [facility] [address] [place] [address], [place] [phone] * (ABNORMAL) Complete blood count (10/17/2024 8:47 AM EDT) WBC 5.1 4.8 - 10.8 K/mcL LAB HEMETOLOGY METHOD 10/17/2024 11:13 AM [facility] RBC 3.70(L) 3.80 - 4.80 M/mcL LAB HEMETOLOGY METHOD 10/17/2024 11[facility] Hemoglobin 11.8 11.5 - 16.0 g/dL LAB HEMETOLOGY METHOD 10/17/2024 11:13 AM [facility] Hematocrit 35.7 35.0 - 47.0 % LAB HEMETOLOGY METHOD 10/17/2024 11:13 AM [facility] MCV 95.5 79.0 - 98.0 FL LAB HEMETOLOGY METHOD 10/17/2024 11:13 [facility] MCH 31.6 27.0 - 32.0 pcg LAB HEMETOLOGY METHOD 10/17/2024 11:13 AM [facility] MCHC 33.1 32.0 - 37.0 g/dL LAB HEMETOLOGY METHOD 10/17/2024 11:13 AM [facility] RDW 13.1 11.0 - 15.0 % LAB HEMETOLOGY METHOD 10/17/2024 11:[address] [facility] Platelets 184 130 - 400 K/mcL LAB HEMETOLOGY METHOD 10/17/2024 11:[address] [facility] MPV 11.4(H) 7.0 - 11.0 FL LAB HEMETOLOGY METHOD 10/17/2024 11:[address] [facility] NRBC 0.0 <1.0 % LAB HEMETOLOGY METHOD 10/17/2024 11:[address] [facility] NRBC Absolute 0.00 <0.10 K/mcL LAB HEMETOLOGY METHOD 10/17/2024 11:[address] [facility] Blood Venous blood specimen / Unknown Venipuncture / Unknown 10/17/2024 8:47 AM EDT 10/17/2024 10:31 AM EDT us Giovanni Coffey MD LAB BLOOD ORDERABLES Final Resul t [facility] [address] [place] [address], documented in this encounter Visit Diagnoses Diagnosis Essential (primary) hypertension Unspecified essential hypertension Hyperlipidemia, unspecified documented in this encounter Care Teams Geospatial Analyst Relationship Specialty Start Date End Date Carlita Villegas MD [address] [place] [phone] PCP - General 08/25/22 documented as of this encounter
--- OUTSIDE RECORDS SUMMARY | 2024-11-14 08:25 | XMS_ITS | Encounter Summary ---
Author Organization [facility] [address] Address [address] [place] [address] Care Team Providers Care Band Saw Marker Name Role Phone Carlita Villegas MD Primary Care Provider [phone] Encounter Details Date Type Department Care Team (Late Contact Info) Description 11/07/2024 Lab Requisition [facility] - Main Lab 299 [facility] [place] [address] Giovanni Coffey MD [address] [place] [address], [phone] Essential (primary) hypertension Social History Tobacco [...] 10:00 AM EST Office Visit Endocrinology - [place] [address] [place] [address] Gisell Villegas PA [address] [place] [address] 08/26/2025 10:00 AM EST Office Visit Vascular Surgery - [place] [address] [place] [phone] Priya Lopez MD [address] [place] [address] documented as of this encounter Procedures Procedure Name Priority Date/Time Associated Diagnosis Comments URINALYSIS WITH REFLEX MICROSCOPIC Routine 11/06/2024 9:28 PM EDT Essential (primary) hypertension URINALYSIS WITH REFLEX MICROSCOPIC Routine 11/06/2024 9:28 PM EDT Essential (primary) hypertension CULTURE URINE Routine 11/06/2024 9:28 PM EDT Essential (primary) hypertension documented in this encounter Results * (ABNORMAL) Urinalysis with reflex microscopic (11/06/2024 9:28 PM EDT) Specific [place] Urine 1.014 1.003 - 1.030 LAB URINALYSIS - AUTOMATED METHOD 11/07/2024 11:48 AM [facility] pH, Urine 6.0 5.0 - 8.0 pH LAB URINALYSIS - AUTOMATED METHOD 11/07/2024 11:48 AM [facility] Leukocytes, Urine Large(A) Negative LAB URINALYSIS - AUTOMATED METHOD 11/07/2024 11:48 AM [facility] Nitrite, Urine Positive(A) Negative LAB URINALYSIS - AUTOMATED METHOD 11/07/2024 11:48 AM [facility] Protein, Urine 30(A) <=Trace mg/dL LAB URINALYSIS - AUTOMATED METHOD 11/07/2024 11:48 AM [facility] Glucose, Urine Negative Negative mg/dL LAB URINALYSIS - AUTOMATED METHOD 11/07/2024 11:48 AM [facility] Ketones, Urine Negative Negative mg/dL LAB URINALYSIS - AUTOMATED METHOD 11/07/2024 11:48 AM [facility] Urobilinogen , Urine 0.2 0.2 - 1.0 mg/dL LAB URINALYSIS - AUTOMATED METHOD 11/07/2024 11:48 AM [facility] Bilirubin, Urine Negative Negative LAB URINALYSIS - AUTOMATED METHOD 11/07/2024 11:48 AM [facility] Blood, Urine Large(A) Negative LAB URINALYSIS - AUTOMATED METHOD 11/07/2024 11:48 AM [facility] RBC, Urine 7.7(H) 0 - 4 /HPF LAB URINALYSIS - AUTOMATED METHOD 11/07/2024 11:48 AM [facility] WBC, Urine 357.6(H) 0 - 4 /HPF LAB URINALYSIS - AUTOMATED METHOD 11/07/2024 11:48 AM [facility] Squamous Epithelial, Urine 12 0 - 60 /LPF LAB URINALYSIS - AUTOMATED METHOD 11/07/2024 11:48 AM [facility] Bacteria, Urine Many(A) Negative /HPF LAB URINALYSIS - AUTOMATED METHOD 11/07/2024 11:48 AM [facility] Hyaline Casts, Urine 0.4 0 - 3 /LPF LAB URINALYSIS - AUTOMATED METHOD 11/07/2024 11:48 AM [facility] Urine Urine specimen from urethra / Unknown Non-blood Collection / Unknown 11/06/2024 9:28 PM EDT 11/07/2024 10:51 AM EDT us Giovanni Coffey MD LAB URINE ORDERABLES Final Resul t [facility] [address] [place] [address], * (ABNORMAL) Culture urine (11/06/2024 9:28 PM EDT) Culture, Urine >100,000 CFU/mL Escherichia coli(A) DANO 11/09/2024 9:22 AM EDT [facility] Urine Urine specimen from urethra [...] MICROBIOLOGY - GENERAL ORDER ERWIN Final Result [facility] [address] [place] [address], documented in this encounter Visit Diagnoses Diagnosis Essential (primary) hypertension Unspecified essential hypertension documented in this encounter Care Teams Band Saw Marker Relationship Specialty Start Date End Date Carlita Villegas MD [address] [place] [address] PCP - General 08/25/22 documented as of this encounter
--- OUTSIDE RECORDS SUMMARY | 2024-11-14 08:25 | XMS_ITS | Encounter Summary ---
Author Organization [facility] Address [address] [place] [address] Care Team Providers Care Tire Maker Name Role Phone Carlita Villegas MD Primary Care Provider [phone] Encounter Details Date Type Department Care Team (Late Contact Info) Description 11/09/2024 Lab Requisition [facility] - Main Lab 299 [facility] [place] [address] Giovanni Coffey MD [address] [place] [address], [phone] Essential (primary) hypertension; Hyperlipidemia, unspecified Social [...] 10:00 AM EST Office Visit Endocrinology - [place] [address] [place] [address] Gisell Villegas PA [address] [place] [address] 08/26/2025 10:00 AM EST Office Visit Vascular Surgery - [place] [address] [place] [address] Priya Lopez MD [facility] [address] [place] [address] documented as of this encounter Procedures Procedure Name Priority Date/Time Associated Diagnosis Comments COMPLETE BLOOD COUNT Routine 11/10/2024 6:40 AM EDT Essential (primary) hypertension Hyperlipidemia, unspecified COMPREHENSIVE METABOLIC PANEL Routine 11/10/2024 6:40 AM EDT Essential (primary) hypertension Hyperlipidemia, unspecified documented in this encounter Results * (ABNORMAL) Comprehensive metabolic panel (11/10/2024 6:40 AM EDT) Sodium 137 133 - 145 mmol/L LAB CHEMISTRY METHOD 11/10/2024 1:09 PM [facility] Potassium 4.1 3.5 - 5.5 mmol/L LAB CHEMISTRY METHOD 11/10/2024 1:09 PM [facility] Chloride 103 96 - 110 mmol/L LAB CHEMISTRY METHOD 11/10/2024 1:09 PM [facility] CO2 27 21 - 32 mmol/L LAB CHEMISTRY METHOD 11/10/2024 1:09 PM [facility] Anion Gap 7 3 - 11 LAB CHEMISTRY METHOD 11/10/2024 1:09 PM [facility] Glucose 86 70 - 100 mg/dL LAB CHEMISTRY METHOD 11/10/2024 1:09 PM [facility] BUN 13 5 - 25 mg/dL LAB CHEMISTRY METHOD 11/10/2024 1:09 PM [facility] Creatinine 0.66 0.50 - 1.10 mg/dL LAB CHEMISTRY METHOD 11/10/2024 1:09 PM [facility] eGFR 89 >=60 mL/min/1. 73m2 LAB CHEMISTRY METHOD 11/10/2024 1:09 PM EDT [facility] Comment:Calculation based on the??Chronic Kidney Disease Epidemiology Collaboration (CKD-EPI) equation refit??without adjustment for race. BUN/Creatinine Ratio 19.7 LAB CHEMISTRY METHOD 11/10/2024 1:09 PM [facility] Calcium 9.0 8.5 - 10.5 mg/dL LAB CHEMISTRY METHOD 11/10/2024 1:09 PM [facility] AST (SGOT) 17 10 - 42 unit/L LAB CHEMISTRY METHOD 11/10/2024 1:09 PM [facility] ALT (SGPT) 27 10 - 60 unit/L LAB CHEMISTRY METHOD 11/10/2024 1:09 PM [facility] Alkaline Phosphatase 140(H) 42 - 121 unit/L LAB CHEMISTRY METHOD 11/10/2024 1:09 PM [facility] Total Protein 6.7 6.0 - 8.0 g/dL LAB CHEMISTRY METHOD 11/10/2024 1:09 PM [facility] Albumin 3.3 3.2 - 5.0 g/dL LAB CHEMISTRY METHOD 11/10/2024 1:09 PM [facility] Total Bilirubin 0.4 0.0 - 1.4 mg/dL LAB CHEMISTRY METHOD 11/10/2024 1:09 PM [facility] Blood Venous blood specimen / Unknown Venipuncture / Unknown 11/10/2024 6:40 AM EDT 11/10/2024 11:16 AM EDT us Giovanni Coffey MD LAB BLOOD ORDERABLES Final Resul t [facility] [address] [place] [address], [place] [phone] * (ABNORMAL) Complete blood count (11/10/2024 6:40 AM EDT) WBC 3.7(L) 4.8 - 10.8 K/mcL LAB HEMETOLOGY METHOD 11/10/2024 11:50 AM [facility] RBC 3.70(L) 3.80 - 4.80 M/mcL LAB HEMETOLOGY METHOD 11/10/2024 11:50 AM [facility] Hemoglobin 11.6 11.5 - 16.0 g/dL LAB HEMETOLOGY METHOD 11/10/2024 11:50 AM [facility] Hematocrit 36.4 35.0 - 47.0 % LAB HEMETOLOGY METHOD 11/10/2024 11:50 AM [facility] MCV 98.4(H) 79.0 - 98.0 FL LAB HEMETOLOGY METHOD 11/10/2024 11:50 AM [facility] MCH 31.4 27.0 - 32.0 pcg LAB HEMETOLOGY METHOD 11/10/2024 11:50 AM [facility] MCHC 31.9(L) 32.0 - 37.0 g/dL LAB HEMETOLOGY METHOD 11/10/2024 11:50 AM [facility] RDW 13.2 11.0 - 15.0 % LAB HEMETOLOGY METHOD 11/10/2024 11:50 AM [facility] Platelets 210 130 - 400 K/mcL LAB HEMETOLOGY METHOD 11/10/2024 11:50 AM [facility] MPV 10.7 7.0 - 11.0 FL LAB HEMETOLOGY METHOD 11/10/2024 11:50 AM [facility] NRBC 0.0 <1.0 % LAB HEMETOLOGY METHOD 11/10/2024 11:50 AM [facility] NRBC Absolute 0.00 <0.10 K/mcL LAB HEMETOLOGY METHOD 11/10/2024 11:50 AM [facility] Blood Venous blood specimen / Unknown Venipuncture / Unknown 11/10/2024 6:40 AM EDT 11/10/2024 11:16 AM EDT us Giovanni Coffey MD LAB BLOOD ORDERABLES Final Resul t [facility] [address] [place] [address], documented in this encounter Visit Diagnoses Diagnosis Essential (primary) hypertension Unspecified essential hypertension Hyperlipidemia, unspecified documented in this encounter Care Teams Tire Maker Relationship Specialty Start Date End Date Carlita Villegas MD [address] [place] [address] PCP - General 08/25/22 documented as of this encounter
--- OUTSIDE RECORDS SUMMARY | 2024-11-14 08:26 | XMS_ITS | Encounter Summary ---
Author Organization [facility] Address [address] [place] [address] Care Team Providers Care Wax Bleacher Name Role Phone Carlita Villegas MD Primary Care Provider [phone] Encounter Details Date Type Department Care Team (Late st Contact Info) Description 10/23/2024 Lab Requisition [facility] - Main Lab 299 [facility] [place] [address] Giovanni Coffey MD [address] [place] [address], [phone] Essential (primary) hypertension; Hyperlipidemia, unspecified; Unspecified [...] 10:00 AM EST Office Visit Endocrinology - [place] [address] [place], [place] [phone] Gisell Villegas PA [address] [place], [place] 08/26/2025 10:00 AM EST Office Visit Vascular Surgery - [place] [address] [place] [address] Priya Lopez MD [address] [place] [address] documented as of this encounter Procedures Procedure [...] mmol/L LAB CHEMISTRY METHOD 10/24/2024 11:18 AM [facility] Potassium 4.6 3.5 - 5.5 mmol/L LAB CHEMISTRY METHOD 10/24/2024 11:18 AM [facility] Chloride 106 96 - 110 mmol/L LAB CHEMISTRY METHOD 10/24/2024 11:18 AM [facility] CO2 28 21 - 32 mmol/L LAB CHEMISTRY METHOD 10/24/2024 11:18 AM [facility] Anion Gap 5 3 - 11 LAB CHEMISTRY METHOD 10/24/2024 11:18 AM [facility] Glucose 84 70 - 100 mg/dL LAB CHEMISTRY METHOD 10/24/2024 11:18 AM [facility] BUN 19 5 - 25 mg/dL LAB CHEMISTRY METHOD 10/24/2024 11:18 AM [facility] Creatinine 0.72 0.50 - 1.10 mg/dL LAB CHEMISTRY METHOD 10/24/2024 11:18 AM [facility] eGFR 85 >=60 mL/min/1. 73m2 LAB CHEMISTRY METHOD 10/24/2024 11:18 AM [facility] Comment:Calculation based on the??Chronic Kidney Disease Epidemiology Collaboration (CKD-EPI) equation refit??without adjustment for race. BUN/Creatinine Ratio 26.4 LAB CHEMISTRY METHOD 10/24/2024 11:18 AM [facility] Calcium 8.6 8.5 - 10.5 mg/dL LAB CHEMISTRY METHOD 10/24/2024 11:18 AM [facility] AST (SGOT) 62(H) 10 - 42 unit/L LAB CHEMISTRY METHOD 10/24/2024 11:18 AM [facility] ALT (SGPT) 91(H) 10 - 60 unit/L LAB CHEMISTRY METHOD 10/24/2024 11:18 AM [facility] Alkaline Phosphatase 156(H) 42 - 121 unit/L LAB CHEMISTRY METHOD 10/24/2024 11:18 AM [facility] Total Protein 6.4 6.0 - 8.0 g/dL LAB CHEMISTRY METHOD 10/24/2024 11:18 AM [facility] Albumin 2.9(L) 3.2 - 5.0 g/dL LAB CHEMISTRY METHOD 10/24/2024 11:18 AM [facility] Total Bilirubin 0.5 0.0 - 1.4 mg/dL LAB CHEMISTRY METHOD 10/24/2024 11:18 AM [facility] Blood Venous blood specimen / Unknown Venipuncture / Unknown 10/24/2024 5:10 AM EDT 10/24/2024 9:54 AM EDT us Giovanni Coffey MD LAB BLOOD ORDERABLES Final Resul t [facility] [address] [place] [address], * (ABNORMAL) Complete blood count (10/24/2024 5:10 [...] % LAB [facility]OLOG[facility] MCV 98.6(H) 79.0 - 98.0 FL LAB HEMETOLOGY METHOD 10/[facility]2024 [facility] MCH 31.4 27.0 - 32.0 pcg LAB HEMETOLOGY METHOD 10/24/2024 10:04 AM EDT [facility] MCHC 31.9(L) 32.0 - 37.0 g/dL LAB HEMETOLOGY METHOD 10/24/2024 10:04 AM [facility] RDW 13.4 11.0 - 15.0 % LAB HEMETOLOGY METHOD 10/24/2024 10:04 AM [facility] Platelets 253 130 - 400 K/mcL LAB HEMETOLOGY METHOD 10/24/2024 10:04 AM [facility] MPV 10.7 7.0 - [...] ORDERABLES Final Resul t Performing Organization Address City[facility]/ZIP Co de Phone Number [facility] [address] [place] [address], [place] [phone] * (ABNORMAL) C-reactive protein (10/24/2024 5:10 AM EDT) C-Reactive Protein 1.44(H) <=0.50 mg/dL LAB CHEMISTRY METHOD 10/24/2024 11:18 AM EDT [facility] Blood Venous blood specimen / Unknown Venipuncture / Unknown 10/24/2024 5:10 AM EDT 10/24/2024 9:54 AM EDT us Giovanni Coffey MD LAB BLOOD ORDERABLES Final Resul t Performing Organization Address City/[facility]/ZIP Co de Phone Number [facility] [address] [place] [address], [place] [phone] documented in this encounter Visit Diagnoses Diagnosis Essential (primary) hypertension Unspecified essential hypertension Hyperlipidemia, unspecified Unspecified osteoarthritis, unspecified site Encounter for other orthopedic aftercare documented in this encounter Care Teams Wax Bleacher Relationship Specialty Start Date End Date Carlita Villegas MD [address] [place] [address] PCP - General 08/25/22 documented as of this encounter
--- OUTSIDE RECORDS SUMMARY | 2024-11-14 08:26 | XMS_ITS | Patient Health Record ---
Author Organization [facility] Address [address] [facility] [facility] [address] [place] [address] Support Name Relationship Address Phone KEVIN PFEIFFER Guarantor Unknown [phone] Reason For Referral No Information Medications Medication SIG (Take, Route, Frequency, Duration) Notes Start Date End Date Status Calcium-Carb 600 + D 1 ORAL daily for -3 [facility] 2 Active Anita-D 12 Hour 60-120 1 ORAL twice daily for -3 [facility] 01/12/2012 Active Evista 60MG 1 ORAL daily for -3 [facility] 08/30/2012 Active Multivitamins 1 ORAL daily for -3 [facility] 01/12/2012 Active Problems Problem Type SNOMED Code ICD Code Onset Dates Problem Status W/U Status Risk Notes Problem Osteoarthritis (661054414) Osteoarthrosis, unspecified whether generalized or localized, unspecified site (715.90) Active confirmed Major Problem Osteoporosis (25522289) Unspecified osteoporosis (733.00) Active confirmed Major Problem Gynecological examination normal (653284956828713) Routine gynecological examination (V72.31) Active confirmed Diag Plan Of Treatment No Information Insurance Providers Payer Name Payer Address Payer Phone Subscriber Number Group Number Insured Name Patient Relationship to Insured Coverage Start Date Coverage End Date [employer]AGE [facility] [address] [place] [address] [id number] KEVIN PFEIFFER Self - patient is the insured
--- OUTSIDE RECORDS SUMMARY | 2024-11-14 08:26 | XMS_ITS | Encounter Summary ---
Author Organization [facility] Address [address] [place] [address] Care Team Providers Care Blower And Compressor Assembler Name Role Phone Carlita Villegas MD Primary Care Provider [phone] Encounter Details Date Type Department Care Team (Late st Contact Info) Description 11/13/2024 Lab Requisition [facility] - Main Lab 299 [facility] [place] [address] Giovanni Coffey MD [address] [place] [address], [phone] Essential (primary) hypertension; Hyperlipidemia, unspecified; Unspecified [...] 10:00 AM EST Office Visit Endocrinology - [place] [address] [place], [place] [phone] Gisell Villegas PA [address] [place], [place] 08/26/2025 10:00 AM EST Office Visit Vascular Surgery - [place] [address] [place] [address] Priya Lopez MD [address] [place] [address] Scheduled Orders Name Type Priority Associated Diagnoses Orde r Schedule C-reactive protein Lab Routine Essential (primary) hypertension Hyperlipidemia, unspecified Unspecified osteoarthritis, unspecified site Encounter for other orthopedic aftercare Ordered: 11/13/2024 Complete blood count Lab Routine Essential (primary) hypertension Hyperlipidemia, unspecified Unspecified osteoarthritis, unspecified site Encounter for other orthopedic aftercare Ordered: 11/13/2024 Comprehensive metabolic panel Lab Routine Essential (primary) hypertension Hyperlipidemia, unspecified Unspecified osteoarthritis, unspecified site Encounter for other orthopedic aftercare Ordered: 11/13/2024 documented as of this encounter Visit Diagnoses Diagnosis Essential (primary) hypertension Unspecified essential hypertension Hyperlipidemia, unspecified Unspecified osteoarthritis, unspecified site Encounter for other orthopedic aftercare documented in this encounter Care Teams Blower And Compressor Assembler Relationship Specialty Start Date End Date Carlita Villegas MD [address] [place] [address] PCP - General 08/25/22 documented as of this encounter
--- OUTSIDE RECORDS SUMMARY | 2024-11-14 08:26 | XMS_ITS | Encounter Summary ---
Author Organization [facility] Address [address] [place] [address] Care Team Providers Care Production Line Manager Name Role Phone Carlita Villegas MD Primary Care Provider [phone] Encounter Details Date Type Department Care Team (Late Contact Info) Description 10/27/[address] [facility] - Main Lab 299 [facility] [place] [address] Giovanni Coffey MD [address] [place] [address], [phone] Essential (primary) hypertension; Hyperlipidemia, unspecified Social [...] 10:00 AM EST Office Visit Endocrinology - [place] [address] [place] [address] Gisell Villegas PA [address] [place] [address] 08/26/2025 10:00 AM EST Office Visit Vascular Surgery - [place] [address] [place] [address] Priya Lopez MD [address] [place] [address] documented as of this encounter Procedures Procedure [...] mmol/L LAB CHEMISTRY METHOD 10/27/2024 12:56 PM [facility] Potassium 4.9 3.5 - 5.5 mmol/L LAB CHEMISTRY METHOD 10/27/2024 12:56 PM [facility] Comment:Hemolysis present Chloride 104 96 - 110 mmol/L LAB CHEMISTRY METHOD 10/27/2024 12:56 PM [facility] CO2 25 21 - 32 mmol/L LAB CHEMISTRY METHOD 10/27/2024 12:56 PM [facility] Anion Gap 8 3 - 11 LAB CHEMISTRY METHOD 10/27/2024 12:56 PM [facility] Glucose 80 70 - 100 mg/dL LAB CHEMISTRY METHOD 10/27/2024 12:56 PM [facility] BUN 18 5 - 25 mg/dL LAB CHEMISTRY METHOD 10/27/2024 12:56 PM [facility] Creatinine 0.69 0.50 - 1.10 mg/dL LAB CHEMISTRY METHOD 10/27/2024 12:56 PM [facility] eGFR 88 >=60 mL/min/1. 73m2 LAB CHEMISTRY METHOD 10/27/2024 12:56 PM EDT [facility] Comment:Calculation based on the??Chronic Kidney Disease Epidemiology Collaboration (CKD-EPI) equation refit??without adjustment for race. BUN/Creatinine Ratio 26.1 LAB CHEMISTRY METHOD 10/27/2024 12:56 PM EDT [facility] Calcium 8.9 8.5 - 10.5 mg/dL LAB CHEMISTRY METHOD 10/27/2024 12:56 PM T [facility] AST (SGOT) 67(H) 10 - 42 unit/L LAB CHEMISTRY METHOD 10/27/2024 12:56 PM [facility] Comment:Hemolysis present ALT (SGPT) 73(H) 10 - 60 unit/L LAB CHEMISTRY METHOD 10/27/2024 12:56 PM [facility] Alkaline Phosphatase 188(H) 42 - 121 unit/L LAB CHEMISTRY METHOD 10/27/2024 12:56 PM [facility] Total Protein 6.9 6.0 - 8.0 g/dL LAB CHEMISTRY METHOD 10/27/2024 12:56 PM [facility] Albumin 3.1(L) 3.2 - 5.0 g/dL LAB CHEMISTRY METHOD 10/27/2024 12:56 PM [facility] Total Bilirubin 0.5 0.0 - 1.4 mg/dL LAB CHEMISTRY METHOD 10/27/2024 12:56 PM T [facility] Blood Venous blood specimen / Unknown Venipuncture / Unknown 10/27/2024 6:25 AM EDT 10/27/2024 10:32 AM EDT us Giovanni Coffey MD LAB BLOOD ORDERABLES Final Resul t [facility] [address] [place] [address], * Complete blood count (10/27/2024 6:25 AM EDT) [facility] WBC 5.0 4.8 - 10.8 K/mcL LAB HEMETOLOGY METHOD 10/27/2024 11:30 AM [facility] RBC 3.80 3.80 - 4.80 M/mcL LAB HEMETOLOGY METHOD 10/27/2024 11:30 AM [facility] Hemoglobin 12.0 11.5 - 16.0 g/dL LAB HEMETOLOGY METHOD 10/27/2024 11:30 AM [facility] Hematocrit 36.9 35.0 - 47.0 % LAB HEMETOLOGY METHOD 10/27/2024 11:30 AM [facility] MCV 97.9 79.0 - 98.0 FL LAB HEMETOLOGY METHOD 10/27/2024 11:30 AM [facility] MCH 31.8 27.0 - 32.0 pcg LAB HEMETOLOGY METHOD 10/27/2024 11:30 AM [facility] MCHC 32.5 32.0 - 37.0 g/dL LAB HEMETOLOGY METHOD 10/27/2024 11:30 AM [facility] RDW 13.3 11.0 - 15.0 % LAB HEMETOLOGY METHOD 10/27/2024 11:30 AM [facility] Platelets 293 130 - 400 K/mcL LAB HEMETOLOGY METHOD 10/27/2024 11:30 AM [facility] MPV 11.0 7.0 - 11.0 FL LAB HEMETOLOGY METHOD 10/27/2024 11:30 AM [facility] NRBC 0.0 <1.0 % LAB HEMETOLOGY METHOD 10/27/2024 11:30 AM [facility] NRBC Absolute 0.00 <0.10 K/mcL LAB HEMETOLOGY METHOD 10/27/2024 11:30 AM EDT [facility] Blood Venous blood specimen / Unknown Venipuncture / Unknown 10/27/2024 6:25 AM EDT 10/27/2024 10:32 AM EDT us Giovanni Coffey MD LAB BLOOD ORDERABLES Final Resul t [facility] [address] [place] [address], documented in this encounter Visit Diagnoses Diagnosis Essential (primary) hypertension Unspecified essential hypertension Hyperlipidemia, unspecified documented in this encounter Care Teams Production Line Manager Relationship Specialty Start Date End Date Carlita Villegas MD [address] [place] [phone] PCP - General 08/25/22 documented as of this encounter
--- OUTSIDE RECORDS SUMMARY | 2024-11-14 08:26 | XMS_ITS | Encounter Summary ---
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 Name Role Phone Carlita Villegas MD Primary Care Provider [phone] Encounter Details Date Type Department Care Team (Late st Contact Info) Description 10/30/2024 Lab Requisition [facility] - Main Lab [address] [facility] [place] [address] Giovanni Coffey MD [address] [place] [address], [phone] Essential (primary) hypertension; Hyperlipidemia, unspecified; Unspecified [...] 10:00 AM EST Office Visit Endocrinology - [place] [address], [place] [phone] Gisell Villegas PA [address], [place] 08/26/2025 10:00 AM EST Office Visit Vascular Surgery - [place] [address] [place] [address] Priya Lopez MD [address] [place] [address] documented as of this encounter Procedures Procedure [...] mmol/L LAB CHEMISTRY METHOD 10/31/2024 12:31 PM [facility] Potassium 4.3 3.5 - 5.5 mmol/L LAB CHEMISTRY METHOD 10/31/2024 12:31 PM [facility] Chloride 104 96 - 110 mmol/L LAB CHEMISTRY METHOD 10/31/2024 12:31 PM [facility] CO2 30 21 - 32 mmol/L LAB CHEMISTRY METHOD 10/31/2024 12:31 PM [facility] Anion Gap 4 3 - 11 LAB CHEMISTRY METHOD 10/31/2024 12:31 PM [facility] Glucose 122(H) 70 - 100 mg/dL LAB CHEMISTRY METHOD 10/31/2024 12:31 PM [facility] BUN 17 5 - 25 mg/dL LAB CHEMISTRY METHOD 10/31/2024 12:31 PM [facility] Creatinine 0.75 0.50 - 1.10 mg/dL LAB CHEMISTRY METHOD 10/31/2024 12:31 PM [facility] eGFR 81 >=60 mL/min/1. 73m2 LAB CHEMISTRY METHOD 10/31/2024 12:31 PM [facility] Comment:Calculation based on the??Chronic Kidney Disease Epidemiology Collaboration (CKD-EPI) equation refit??without adjustment for race. BUN/Creatinine Ratio 22.7 LAB CHEMISTRY METHOD 10/31/2024 12:31 PM [facility] Calcium 9.2 8.5 - 10.5 mg/dL LAB CHEMISTRY METHOD 10/31/2024 12:31 PM [facility] AST (SGOT) 43(H) 10 - 42 unit/L LAB CHEMISTRY METHOD 10/31/2024 12:31 PM [facility] ALT (SGPT) 60 10 - 60 unit/L LAB CHEMISTRY METHOD 10/31/2024 12:31 PM [facility] Alkaline Phosphatase 193(H) 42 - 121 unit/L LAB CHEMISTRY METHOD 10/31/2024 12:31 PM [facility] Total Protein 6.8 6.0 - 8.0 g/dL LAB CHEMISTRY METHOD 10/31/2024 12:31 PM [facility] Albumin 3.3 3.2 - 5.0 g/dL LAB CHEMISTRY METHOD 10/31/2024 12:31 PM [facility] Total Bilirubin 0.5 0.0 - 1.4 mg/dL LAB CHEMISTRY METHOD 10/31/2024 12:31 PM [facility] Blood Venous blood specimen / Unknown Venipuncture / Unknown 10/31/2024 8:53 AM EDT 10/31/2024 10:21 AM EDT us Giovanni Coffey MD LAB BLOOD ORDERABLES Final Resul t [facility] [address] [place] [address], * (ABNORMAL) Complete blood count (10/31/2024 8:53 AM EDT) WBC 5.0 4.8 - 10.8 K/mcL LAB HEMETOLOGY METHOD 10/31/2024 11:12 AM EDT [facility] RBC 3.70(L) 3.80 - 4.80 M/mcL LAB H[facility]OLOGY [facility] Hemoglobin 11.5 11.5 - 16.0 g/dL LAB HEMETOLOGY METHOD [facility] Hematocrit 35.8 35.0 - 47.0 % LAB HEMETOLOGY METHOD 10/31[facility]2024 [facility] MCV 97.8 79.0 - 98.0 FL LAB HEMETOLOGY METHOD 10/[facility]24 [facility] MCH 31.4 27.0 - 32.0 pcg LAB HEMETOLOGY METHOD [facility]24 [facility] MCHC 32.1 32.0 - 37.0 g/dL LAB HEMETOLOGY METHOD 10/31/2024 11:12 AM EDT [facility] RDW 13.3 11.0 - 15.0 % LAB HEMETOLOGY METHOD 10/31/2024 11:12 AM EDT [facility] Platelets 283 130 - 400 K/mcL LAB HEMETOLOGY METHOD [facility]24 [facility] MPV 10.4 7.0 - [...] ORDERABLES Final Resul t Performing Organization Address [facility]/ZIP Co de Phone Number [facility] [address] [place] [address], [place] [phone] * (ABNORMAL) C-reactive protein (10/31/2024 8:53 AM EDT) C-Reactive Protein 1.02(H) <=0.50 mg/dL LAB CHEMISTRY METHOD 10/31/2024 12:33 PM EDT [facility] Blood Venous blood specimen / Unknown Venipuncture / Unknown 10/31/2024 8:53 AM EDT 10/31/2024 10:21 AM EDT Giovanni Coffey MD LAB BLOOD ORDERABLES Final Resul t Performing Organization Address City/[facility]/ZIP Co de Phone Number [facility] [address] [place] [address], [place] [phone] documented in this encounter Visit Diagnoses Diagnosis Essential (primary) hypertension Unspecified essential hypertension Hyperlipidemia, unspecified Unspecified osteoarthritis, unspecified site Encounter for other orthopedic aftercare documented in this encounter Care Teams Stainless Steel Finisher Relationship Specialty Start Date End Date Carlita Villegas MD [address] [place] [phone] PCP - General 1/20/23 documented as of this encounter
--- OUTSIDE RECORDS SUMMARY | 2024-11-14 08:26 | XMS_ITS | Continuity of Care Document ---
Author Organization [facility], [facility] Address [address] [place] [address] Care Team Providers Care Budget Report Clerk Name Role Phone BRENDA GUZMAN - 2ND [...] Organization Details Recorded Time Hypertensiv e disorder 41806628 Active 2024 Estrellita Damico NP [address] , [address], [place], [address], [facility] 5 10:05:42 Open reduction of fracture of radius Active 2024 Estrellita Damico NP [address] , [address], [place], [address], [facility] 5 10:06:12 Fracture of radius 42677812 Active 2024 Estrellita Damico NP [address] , [address], [place], [address], [facility] 5 10:06:50 Closed fracture of pubic ramus Active 2024 Estrellita Damico NP [address], [address], [place], [address], [facility] 5 10:07:14 Hyperlipide desiree 62355317 Active 2024 Estrellita Damico NP [address], [address], [place], [address], [facility] 5 10:07:30 At high risk for fall 2740962898941 94238 Active 2024 Estrellita Damico NP [address], [address], [place], [address], [facility] 5 10:07:56 Asthenia 81398617 Active 2024 Estrellita Damico NP [address], [address], [place], [address], [facility] 5 10:08:03 Osteoporosi s 58913732 Active 2024 Estrellita Damico NP [address] [facility], [address], [place], [address], [facility] 5 10:11:58 Problem Notes None recorded. Medical Equipment None Reported. Allergies Allergen ID Allergen Name Allergen Category Reaction Reaction Severity Criticality Documentation Date Start Date Code Code System Note Provider Name and Address Organization Details Recorded Time 74472 azithromy radha medicatio n other Not available unabletoasse 10/17/2024 33209 RxNorm upset stoma ch Not Available Not Available Not Available 14278 doxycycli ne Not available other Not available unabletoasse 10/17/2024 3640 RxNorm gi upset Not Available Not Available Not Available Medications Not known to be on any medication Vitals Date Recorded Heart rate Respiratory rate Body temperature Oxygen saturation Oxygen saturation in Arterial blood by Pulse oximetry Systolic blood pressure Diastolic blood pressure Provider Name and Address Organization Details Last Updated DateTime 5 76 /min 18 /min 97.5 [degF] 97 % 97 % 140 mm[Hg] 80 mm[Hg] CRISTIANE MAN NP [address] [facility], [address], [place], [address], [facility] 5 12:06:34 Social History Question Answer Notes LastModified by Organization Details LastModified Time Tobacco Smoking Status Former Smoker smoked for one yr in her 20s Estrellita Damico NP [address] [facility], [address], [place], [address], [facility] 10/17/2024 10:30:23 Do You Have An [...] SARS-COV-2 (COVID-19) vaccine, UNSPECIFIED 4 completed Valencia martin, [facility] 10/17/2024 14:17:30 SARS-COV-2 (COVID-19) vaccine, UNSPECIFIED 1 completed Valencia Fredo null, [facility] 10/17/2024 14:17:52 SARS-COV-2 (COVID-19) vaccine, UNSPECIFIED 1 completed Valencia Fredo null, [facility] 10/17/2024 14:17:59 SARS-COV-2 (COVID-19) vaccine, UNSPECIFIED 1 completed Valencia Fredo null, [facility] 10/17/2024 14:18:07 SARS-COV-2 (COVID-19) vaccine, UNSPECIFIED 2 completed Valencia Fredo [facility] 10/17/2024 14:18:14 Td(adult) unspecified formulation 8 completed Valencia Fredo [facility], [facility] 10/17/2024 14:18:32 Pneumococcal conjugate PCV 13 6 completed Valencia Fredo [facility] 10/17/2024 14:18:45 Pneumococcal conjugate PCV 13 2 completed Valencia Fredo [facility] 10/17/2024 14:18:53 pneumococcal polysaccharide PPV23 4 completed Valencia Fredo [facility] 10/17/2024 14:19:12 influenza, unspecified formulation 4 completed Valencia Fredo [facility] 10/17/2024 14:19:28 influenza, unspecified formulation 4 completed Valencia Fredo null, [facility] 10/17/2024 14:19:38 SARS-COV-2 (COVID-19) vaccine, UNSPECIFIED 1 completed [facility] 14:19:51 SARS-COV-2 (COVID-19) vaccine, UNSPECIFIED 1 completed [facility]17/[facility]24 14:20:01 SARS-COV-2 (COVID-19) vaccine, UNSPECIFIED 1 completed [facility] 10/17/2024 14:20:09 SARS-COV-2 (COVID-19) vaccine, UNSPECIFIED 2 completed Valencia Yoo [facility] 10/17/2024 14:20:17 zoster, unspecified formulation 3 completed Valencia Yoo [facility] 10/17/2024 14:24:16 zoster, unspecified formulation 1 completed Valenciaroyal Yoo [facility] 10/17/2024 14:24:26 Past Encounters Encounter ID Performer Location Encounter Start Date Encounter Closed Date Diagnosis/Indication Diagnosis SNOMED-CT Code Diagnosis ICD10 Code Diagnosis Note [id number] Estrellita Damico NP [address] [address] 10/17/2024 09:25:54 10/20/2024 13:52:21 Closed fracture of pubic ramus 8733627313 S32.501D CT pelvis showed right superior pubic ramus and right sacral ala.She is NWB status to right lower extremity with wheelchair transfer'p ain control as belowneeds to fu with ortho in 2 weeks Fracture of radius 26229 007 S52.90XA sp mechanical fall dx with [...] 2 weeks with ortho Hypertensive disorder 38 271453 I10 with hx of htn with elevated bp controlled on losartan 50 mg po qd started in hospitalmo nitor vitals and for need to adjust Osteoporosis 89092090 M8 1.0 hx ofmulivita min qdcal carb bidbiotin qdmonitor Hyperlipidemia 66720103 E78.5 pravastati n 10mg po qdasa qdmonitor Insomnia 920141950 G47.0 0 pt with poor sleep overnight start melatoinin 10 mg po qhsmonitor At high risk for fall 45 20916649 95758499 Z91.89 pt with mechanical fallno assistive devicessup portive carept ot eval and treatmonit or Asthenia 54608214 R53.1 pt pt/ot eval and treatsuppo rtive caremonito r [id number] Giovanni Coffey MD [address] [address] 10/21/2024 14:23:49 10/22/2024 12:07:02 Drug-induced constipation 88881507 K59.03 add sennabowel protocolmo nitor for effect Closed fra cture of pubic ramus 1068145399 S32.501D see HPINWB till cleared by orthodiscu ssed with therapyupd ate with concernsmo nitor for pain controlf/u in place Fracture of radius 90201 007 S52.90XA s/p ORIFfollow ortho recs and update with concernsed divya improvedmo nitor for pain control Hypertensive disorder 38 424373 I10 currently onlosartan 50 mg qdmonitor need to titrate if remains elevated Hyperlipidemia 58889768 E78.5 pravastati n 10 mg po qdcontinue d Insomnia 973429149 G47.0 0 melatonin 10 mg po qhsmonitor for effect Asthenia 93998718 R53.1 therapy to followcoor dinate with ortho [id number] CRISTIANE MAN NP [address] [address] 10/22/2024 10:45:58 10/24/2024 15:39:10 Closed fracture of pubic ramus 5352477143 S32.501D see HPINWB till cleared by orthoPT [...] q mond. x 3 Fracture of radius 34582 007 S52.90XA s/p ORIFNWBSof t cast and sling in place - continueCo ntinue pain meds as aboveMonit or VS, CSM, pain for changesfol low ortho recs and update with concerns Drug-induc ed constipation 24767317 K59.03 Still backed up.Encoura ging use of supp or fleets to get bowels moving ( its right there )D/C senna and colace, change to senna-plus 2 tabs daily, hold for loose stool.Add miralax dailyMaint ain fluidsMoni tor closely and continue to adjust tx. Hypertensive disorder 38 303296 I10 No recent VS - now ordered dailycurre ntly onlosartan 50 mg qdmonitor need to titrate if remains elevated Hyperlipidemia 23323354 E78.5 Continue pravastati n 10 mg po qdSl. elevation in LFTs - is on APAP as wellCMP q mond. x 3 Insomnia 067287570 G47.0 0 On melatonin 10 mg po [...] relaxation and sleep.mikey tor for effect Asthenia 50573577 R53.1 therapy to followcoor dinate with ortho [id number] [facility] [address] 10/24/2024 14:25:11 10/27/2024 15:33:43 Closed fracture of pubic ramus 6337603507 S32.501D see HPINWB to RUE and RLE till cleared by orthoPT OT eval and txcomforta ble at present with pain regimenupd ate Ortho with concerns prnMonitor VS, pain, CSM for change. 10/24 dc ASA to 325 mg bid10/24 started on eliquis 10 mg po bid x 7 days and then 5mg po bid for DVTCBC, CMP q mond. x 3 Fracture of radius 70416 007 S52.90XA s/p ORIFNWB to RUEcontSof t cast and sling in placeConti nue pain meds as aboveMonit or VS, CSM, pain for changesfol low ortho recs and update with concerns prn Hypertensive disorder 38 340933 I10 stablecurr ently onlosartan 50 mg qdmonitor need to titrate if remains elevated Asthenia 92916464 R53.1 therapy to followcoor dinate with ortho Deep venou s thrombosis of lower extremity 562552354 I82.409 10/24 RLE DVTstart eliquis 10 mg po bid x 7days, then 5mgpo bidno s/s of decreased circulatio n to RLEmonitor cms, pain, vitals, bleeding [id number] CRISTIANE MAN NP [facility] [address] 10/30/2024 09:30:35 11/03/2024 11:55:25 Deep venous thrombosis of lower extremity 236042268 I82.409 10/24 RLE DVTstarted eliquis 10 mg po bid x 7days, then 5mg po bidASA stoppedmon itor cms, pain, vitals, bleedingDu e for CBC in am Closed fra cture of pubic ramus 0346002518 S32.501D see HPINWB to RUE and RLE till cleared by orthoPT OT eval and txcomforta ble at present with pain regimenupd ate Ortho with concerns prnMonitor VS, pain, CSM for change.Ort ho follow up Tuesday 10/24 d/c'd ASA due to RLE DVT, now on eliquisCBC , CMP q mond. x 3 Fracture of radius 91066 007 S52.90XA s/p ORIFNWB to RUEcontSof t cast and sling in placeConti nue pain meds as aboveMonit or VS, CSM, pain for changesfol low ortho recs and update with concerns prnOrtho follow up tomorrow. Hypertensive disorder 38 954139 I10 stablecurr ently onlosartan 50 mg qdmonitor need to titrate if remains elevated Asthenia 44370617 R53.1 therapy to followcoor dinate with ortho [id number] Estrellita Damico NP [facility] [address] [address] 11/07/2024 09:32:31 11/07/2024 10:20:44 Deep venous thrombosis of lower extremity 183664730 I82.409 RLE DVTcont eliquis 5mg po bid, completed eliquis 10 mg po bid x 7days started on 10/24ASA stopped, now on eliquismon itor cms, pain, vitals, bleedingmo nitor labs Closed fra cture of pubic ramus 6175379162 S32.501D NWB to RUE and RLE till cleared by orthoPT OT eval and txcomforta ble at present with pain regimenupd ate Ortho with concerns prnMonitor VS, pain, CSM for change.Ort ho follow up Friday 11/10oxycodo ne and tyl sched10/24 d/c'd ASA due to RLE DVT, now on eliquisCBC , CMP q . x 3 Fracture of radius 04306 007 S52.90XA s/p ORIFNWB to RUEcontoxy codone and tylenol schedcast in placeConti nue pain meds as aboveMonit or VS, CSM, pain for changesfol low ortho recs and update with concerns prnOrtho follow up on 11/10 for hipnsg to get fu note from 10/31 for further rec Hypertensive disorder 38 240556 I10 stable 116/63curr ently onlosartan 50 mg qdmonitor need to titrate if remains elevated Asthenia 22707568 R53.1 therapy to followcoor dinate with ortho Dysuria 31279404 R30.0 co dysuria with urination and urgency for 1-2 days intermitte ntlyua obtained last nightfu with results [id number] Etsrellita Damico NP [facility] [address] [address] 11/10/2024 14:29:31 11/11/2024 08:27:14 Deep venous thrombosis of lower extremity 747915124 I82.409 RLE DVTcont eliquis 5mg po bid, completed eliquis 10 mg po bid x 7days started on 10/24ASA stopped, now on eliquismon itor cms, pain, vitals, bleedingmo nitor labs Closed fra cture of pubic ramus 2487705921 S32.501D NWB to RUE and RLE till cleared by orthoPT OT eval and txcomforta ble at present with pain regimenupd ate Ortho with concerns prnMonitor VS, pain, CSM for change.Ort ho follow up Friday 11/10oxycodo ne and tyl sched3/21 d/c'd ASA due to RLE DVT, now on eliquisCBC , CMP q . x 3 Fracture of radius 59363 007 S52.90XA s/p ORIFNWB to RUEcontoxy codone and tylenol schedcast in placeConti nue pain meds as aboveMonit or VS, CSM, pain for changesfol low ortho recs and update with concerns prnOrtho follow up on 11/10 for hipnsg to get fu note from 10/31 for further rec Hypertensive disorder 38 505194 I10 stable 116/63curr ently onlosartan 50 mg qdmonitor need to titrate if remains elevated Asthenia 38126515 R53.1 therapy to followcoor dinate with orthoremai ns RLE MADAN NWB for now Acute urin sapphire tract infection 924580834 N39.0 co dysuria with urination and urgency for 1-2 days intermitte ntlypositi ve for uti sensitive to macrobidpr obiotic addedmonit or for resolution /sequelae [id number] CRISTIANE MAN NP [address] [address] 11/13/2024 09:17:07 11/13/2024 12:46:02 Acute urinary tract infection 638451321 N39.0 co dysuria and urgency for 1-2 days intermitte ntly last week, UA C&S obtained and pos. for E. Coli UTI, >100KTreat ing with macrobid, to complete todayMaint ain fluids, monitor Deep venou s thrombosis of lower extremity 792493742 I82.409 RLE DVTcont eliquis 5mg po bidASA stopped while on ACmonitor cms, pain, vitals, bleedingmo nitor labsRepeat 3 month US end of January Closed fra cture of pubic ramus 2911770971 S32.501D NWB to RUE and RLE till cleared by orthoPT OT eval and tx - plateauing - coming off service today until WB advanced.c omfortable at present with pain regimen - discussed, would like to continue sched. oxycodone for another week, then re-discuss . Continue APAP.updat e Ortho with concerns prnMonitor VS, pain, CSM for change.Ort ho follow up as sched.On eliquis for AC instead of ASA, new RLE DVT Fracture of radius 14057 007 S52.90XA s/p ORIFNWB to RUEcontoxy codone and tylenol schedcast in placeConti nue pain meds as aboveMonit or VS, CSM, pain for changesfol low ortho recs and update with concerns prnOrtho follow up as sched.nsg to get fu note from 10/31 for further rec Hypertensive disorder 38 052681 I10 VSScurrent ly onlosartan 50 mg qdmonitor need to titrate if remains elevated Asthenia 45110874 R53.1 therapy to followcoor dinate with ortho 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 and daughter req. to start prolia.Violette arently she was on fosamax for 5 yrs., and PCP ordered change to prolia. She was to have her first injection in October, but fell a week before, thus she did not get the injection. POC discussed with pt. and daughter -Continue Calcium 600 mg bidAdd Vit D3 2000 Units dailyCheck Vit D level x 1 - adjust VIt D3 dose if neededStar t prolia 60 mg sq q 6 months, have epipen available for first dose in case of allergic reaction. Health Concerns Section Related Observation LastModified by Organization Detai ls LastModified Time None Recorded Concern Status LastModified by Organization Details LastModified Time None Recorded Payers Encounter Date Sequence Insurance Name Policy Number Policy Celestin Covered Member ID Celestin Member ID Guarantor Name 11/13/2024 1 [facility]PO BLUE (MEDICARE REPLACEMENT PPO) [id number] Dayna Goldberg [id number] Dayna Goldberg Notes Date Note Type Note Provider Name and Address Organization Details Recorded Time 11/13/2024 text/html Lianna is seen toda y for a routine, 30 day visit. She is an 79 yo female admit from hospital presenting after mechanical fall. Imaging positive for fx distal right radius/ulna and right pubic ramus and sacral fx. Underwent ORIF RUE, NWB RLE and RUE until cleared by ortho. Shortly after admission, Dayna had some issues with leg swelling (R>L), constipation, and insomnia.BLE US checked, noted to have DVT in RLE and was started on eliquis, twyla. well so far.Laxatives added for bowels, moving bowels better but still feels constipated. Requesting MOM today, but also in agreement to increase daily laxatives to help with regularity.Hydroxy zine started at HS to help with sleep and anxiety, seems to be working well, no complaints.Appetit e very goodPain improved, still with some bilat. pelvic discomfort.No longer working with rehab as of today as she has plateaued with activity.She has had Ortho follow up for RUE, recasted, + CSM, fitting well.Currently completing macrobid for UTI - dysuria prompted UA C&S, results >100K E. Coli.VSS, BP tending to run on the higher side of nl.Weight showing 10-13 lb. loss as of 11/03, no reweigh documented. Unsure if scale error as eating well.Labs 11/10 stable. Upon exam, Dayna is up in her w/c, alert, NAD. In good spirits. Complaints as above. Both her and her daughter are requesting starting D and prolia to help with bone health. Per pt. she had been on fosamax x 5 years, but PCP wanted her to change to prolia instead. This was to be restarted in November, but she fell 1 week prior and never started the injections. PMH: HTN, HLD, Gait instability CRISTIANE MAN, JESS [address] [facility], [address], [place], [address], [facility] - [employer] 11/13/2024 12:46:01 OBGyn Episode No OBEpisode recorded.
--- OUTSIDE RECORDS SUMMARY | 2024-11-14 08:26 | XMS_ITS | Encounter Summary ---
Author Organization [facility] Address [address] [place] [address] Care Team Providers Care Change Control Analyst Name Role Phone Carlita Villegas MD Primary Care Provider [phone] Encounter Details Date Type Department Care Team (Late Contact Info) Description 11/01/2024 Lab Requisition [facility] - Main Lab [address] [facility] [place] [address] Giovanni Coffey MD [address] [place] [address], [phone] Essential (primary) hypertension; Hyperlipidemia, unspecified Social [...] 10:00 AM EST Office Visit Endocrinology - [place] [address] [place] [address] Gisell Villegas PA [address] [place] [address] 08/26/2025 10:00 AM EST Office Visit Vascular Surgery - [place] [address] [place] [address] Priya Lopez MD [address] [place] [address] documented as of this encounter Procedures Procedure [...] mmol/L LAB CHEMISTRY METHOD 11/03/2024 12:06 PM [facility] Potassium 4.2 3.5 - 5.5 mmol/L LAB CHEMISTRY METHOD 11/03/2024 12:06 PM [facility] Chloride 105 96 - 110 mmol/L LAB CHEMISTRY METHOD 11/03/2024 12:06 PM [facility] CO2 27 21 - 32 mmol/L LAB CHEMISTRY METHOD 11/03/2024 12:06 PM [facility] Anion Gap 8 3 - 11 LAB CHEMISTRY METHOD 11/03/2024 12:06 PM [facility] Glucose 83 70 - 100 mg/dL LAB CHEMISTRY METHOD 11/03/2024 12:06 PM [facility] BUN 14 5 - 25 mg/dL LAB CHEMISTRY METHOD 11/03/2024 12:06 PM [facility] Creatinine 0.59 0.50 - 1.10 mg/dL LAB CHEMISTRY METHOD 11/03/2024 12:06 PM [facility] eGFR 91 >=60 mL/min/1. 73m2 LAB CHEMISTRY METHOD 11/03/2024 12:06 PM [facility] Comment:Calculation based on the??Chronic Kidney Disease Epidemiology Collaboration (CKD-EPI) equation refit??without adjustment for race. BUN/Creatinine Ratio 23.7 LAB CHEMISTRY METHOD 11/03/2024 12:06 PM [facility] Calcium 9.3 8.5 - 10.5 mg/dL LAB CHEMISTRY METHOD 11/03/2024 12:06 PM [facility] AST (SGOT) 27 10 - 42 unit/L LAB CHEMISTRY METHOD 11/03/2024 12:06 PM [facility] ALT (SGPT) 42 10 - 60 unit/L LAB CHEMISTRY METHOD 11/03/2024 12:06 PM [facility] Alkaline Phosphatase 171(H) 42 - 121 unit/L LAB CHEMISTRY METHOD 11/03/2024 12:06 PM [facility] Total Protein 6.5 6.0 - 8.0 g/dL LAB CHEMISTRY METHOD 11/03/2024 12:06 PM [facility] Albumin 3.0(L) 3.2 - 5.0 g/dL LAB CHEMISTRY METHOD 11/03/2024 12:06 PM [facility] Total Bilirubin 0.4 0.0 - 1.4 mg/dL LAB CHEMISTRY METHOD 11/03/2024 12:06 PM [facility] Blood Venous blood specimen / Unknown Venipuncture / Unknown 11/03/2024 5:42 AM EDT 11/03/2024 10:29 AM EDT us Giovanni Coffey MD LAB BLOOD ORDERABLES Final Resul t [facility] [address] [place] [address], [place] [phone] * (ABNORMAL) Complete blood count (11/03/2024 5:42 AM EDT) WBC 5.5 4.8 - 10.8 K/mcL LAB HEMETOLOGY METHOD 11/03/2024 11:18 AM [facility] RBC 3.60(L) 3.80 - 4.80 M/mcL LAB HEMETOLOGY METHOD 11/03/2024 11:18 AM [facility] Hemoglobin 11.2(L) 11.5 - 16.0 g/dL LAB HEMETOLOGY METHOD 11/03/2024 11:18 AM [facility] Hematocrit 34.7(L) 35.0 - 47.0 % LAB HEMETOLOGY METHOD 11/03/2024 11:18 AM [facility] MCV 96.9 79.0 - 98.0 FL LAB HEMETOLOGY METHOD 11/03/2024 11:18 AM [facility] MCH 31.3 27.0 - 32.0 pcg LAB HEMETOLOGY METHOD 11/03/2024 11:18 AM [facility] MCHC 32.3 32.0 - 37.0 g/dL LAB HEMETOLOGY METHOD 11/03/2024 11:18 AM [facility] RDW 13.3 11.0 - 15.0 % LAB HEMETOLOGY METHOD 11/03/2024 11:18 AM [facility] Platelets 253 130 - 400 K/mcL LAB HEMETOLOGY METHOD 11/03/2024 11:18 AM [facility] MPV 10.4 7.0 - 11.0 FL LAB HEMETOLOGY METHOD 11/03/2024 11:18 AM [facility] NRBC 0.0 <1.0 % LAB HEMETOLOGY METHOD 11/03/2024 11:18 AM [facility] NRBC Absolute 0.00 <0.10 K/mcL LAB HEMETOLOGY METHOD 11/03/2024 11:18 AM [facility] Blood Venous blood specimen / Unknown Venipuncture / Unknown 11/03/2024 5:42 AM EDT 11/03/2024 10:29 AM EDT us Giovanni Coffey MD LAB BLOOD ORDERABLES Final Resul t [facility] [address] [place] [address], documented in this encounter Visit Diagnoses Diagnosis Essential (primary) hypertension Unspecified essential hypertension Hyperlipidemia, unspecified documented in this encounter Care Teams Change Control Analyst Relationship Specialty Start Date End Date Carlita Villegas MD [address] [place] [id number] PCP - General 08/25/22 documented as of this encounter
--- OUTSIDE RECORDS SUMMARY | 2024-11-14 08:26 | XMS_ITS | Data Portability ---
Author Organization [facility], [address] Address [address] [place] [address] Care Team Providers Care Human Resources Professional Name Role Phone DOLLY CHAN Primary Care Provider [phone] Assessment No assessment recorded. Plan of Treatment Reminders Order Date Submit Date Provider Last Modified By Organization Details Last Modified Time Details Appointments None recorded. Lab None recorded. Referral emergency medicine referral - Hypertensiv e crisis. need to rule out acute [place]. [address] ([place]), [address] [place] [address], [address], 3 15:16:57 Procedures None recorded. Surgeries None recorded. Imaging None recorded. Medication Orders polymyxin B sulfate 10,000 unit-trimet hoprim 1 mg/mL eye drops [address] [id number], [address] [place], [address], 3 15:02:44 Patient TargetsNo targets recorded. Patient Instructions Encounter Date Encounter Id Patient Instructions Last Modified By Organization Details Last Modified Time 08/25/2022 [id number] Apply warm, mois t compresses over closed [...] hypertensive crisis. need to rule out acute [place]. Hypertensive crisis. need to rule out acute [place]. Referring Physician: Enrico Galdamez, Urgent Care, Encounter Date: 08/25/2022 Problems Name Problem SNOMED Code Status Onset Date Resolution Date Notes Provider Name and Address Organization Details Recorded Time Osteoporosis 56935662 Active 2022 LORNE Watters [facility] 3 14:30:52 Hypertensive disorder 61070859 Active 2022 LORNE Watters [facility] 3 [...] Updated DateTime 3 160.02 cm 25.3 kg/m2 60097.7 1 g 96 % 96 % 65 [...] 30 mcg/0.3 mL dose 1 completed Aviva Litzy null, PA - [facility] 08/25/2022 14:30:37 zoster live 3 completed Aviva Stanhope null, PA - [facility] 08/25/2022 14:30:38 Influenza, adjuvanted, trivalent, PF 8 completed Aviva Litzy null, PA - [facility] 08/25/2022 14:30:38 Pneumococcal conjugate PCV 13 6 completed Aviva Litzy null, PA - [facility] 08/25/2022 14:30:38 Influenza, split virus, trivalent, PF 6 completed Aviva Stanhope null, PA - [facility] 08/25/2022 14:30:38 Influenza, split virus, trivalent, preservative 0 completed Aviva Stanhope null, PA - [facility] 08/25/2022 14:30:38 Influenza, high-dose, trivalent, PF 9 completed Aviva Litzy null, PA - [facility] 08/25/2022 14:30:38 Pneumococcal conjugate PCV20, polysaccharide [id number] conjugate, adjuvant, PF 2 completed Aviva Stanhope null, PA - [facility] 08/25/2022 14:30:38 zoster recombinant 1 completed Aviva Stanhope null, PA - [facility] 08/25/2022 14:30:38 pneumococcal polysaccharide PPV23 4 completed Aviva Stanhope null, PA - [facility] 08/25/2022 14:30:38 Influenza, high-dose, trivalent, PF 7 completed Aviva Litzy null, PA - [facility] 08/25/2022 14:30:38 COVID-19, mRNA, LNP-S, PF, 100 mcg/0.5mL dose or 50 mcg/0.25mL dose 1 completed Aviva Litzy null, PA - [facility] 08/25/2022 14:30:38 Td (adult), 2 Lf tetanus toxoid, preservative free, adsorbed 8 completed Aviva Stanhope null, PA - [facility] 08/25/2022 14:30:38 Influenza, high-dose, quadrivalent, PF 1 completed Aviva Litzy null, PA - [facility] 08/25/2022 14:30:38 Past Encounters Encounter ID Performer Location Encounter Start Date Encounter Closed Date Diagnosis/Indication Diagnosis SNOMED-CT Code Diagnosis ICD10 Code Diagnosis Note [id number] [address] [place] [address] 09/15/2020 10:30:46 09/15/2020 12:24:20 [id number] [address] [place] [phone] 04/23/2021 09:58:30 04/23/2021 12:42:40 [id number] Enrico Galdamez, [employer] [address] [place] [address] 08/25/2022 13:36:13 08/25/2022 15:10:22 Acute conjunctivitis of right eye [id number] 14944 H10.31 Hypertensive crisis 7068 47753 I16.9 Health Concerns Section Related Observation LastModified by Organization Detai ls LastModified Time None Recorded Concern Status LastModified by Organization Details LastModified Time None Recorded Advance Directives Directive None Recorded Payers Encounter Date Sequence Insurance Name Policy Number Policy Eclestin Covered Member ID Celestin Member ID Guarantor Name 09/15/2020 1 [employer] MED[employer]ARE [employer]VANTAGE PLAN (MEDICARE REPLACEMENT HMO) [id number] Dayna Goldberg [id number] Dayna Goldberg 04/23/2021 1 [employer]VANTAGE PLAN (MEDICARE REPLACEMENT HMO) [id number] Dayna Goldberg [id number] Dayna Goldberg 08/25/2022 1 [employer]VANT[employer] PLAN (MEDICARE REPLACEMENT HMO) [id number] Dayna Goldberg [id number] Dayna Kulik Notes Date Note Type Note Provider Name and Address Organization Details Recorded Time 08/25/2022 text/html Eye problemsRepo rted bypatient.Notes:right eye redness more then left with yellow discharge. Also patient is hypertensive VT=807/120mmhg. Enrico Galdamez NP [address] [place], [address], [place] - [facility] 08/25/2022 15:08:45 OBGyn Episode No OBEpisode recorded.
--- OUTSIDE RECORDS SUMMARY | 2024-11-14 08:26 | XMS_ITS | Data Portability ---
Author Organization [facility], Main Office Address [address], [address] [place] [address] Care Team Providers Care Remote Medical Coder Name Role Phone BRENDA GUZMAN - 2ND FLOOR OTHER MIESHA CHAN Primary Care Provider [phone] Assessment No assessment recorded. Plan of Treatment [...] Organization Details Recorded Time Hypertensiv e disorder 78548786 Active 2024 Estrellita Damico NP [address] [facility] [facility], [address], [place], [address], [facility] 5 10:05:42 Open reduction of fracture of radius Active 2024 Estrellita Damico NP [address] [facility], [address], [place], [address], [facility] 5 10:06:12 Fracture of radius 78632067 Active 2024 Estrellita Damico NP [address] [facility] [facility], [address], [place], [address], [facility] 5 10:06:50 Closed fracture of pubic ramus Active 2024 Estrellita Damico NP [address], [address], [place], [address], [facility] 5 10:07:14 Hyperlipide desiree 74643174 Active 2024 Estrellita Damico NP [address], [address], [place], [address], [facility] 5 10:07:30 At high risk for fall 0653591686305 34222 Active 2024 Estrellita Damico NP [address], [address], [place], [address], [facility] 5 10:07:56 Asthenia 15539653 Active 2024 Estrellita Damico NP [address], [address], [place], [address], [place] [facility] 5 10:08:03 Osteoporosi s 96251792 Active 2024 Estrellita Damico NP [address], [place], [address], [facility] 5 10:11:58 Problem Notes None recorded. Medical Equipment None Reported. Allergies Allergen ID Allergen Name Allergen Category Reaction Reaction Severity Criticality Documentation Date Start Date Code Code System Note Provider Name and Address Organization Details Recorded Time 35438 azithromy radha medicatio n other Not available unabletoasse 10/17/2024 82355 RxNorm upset stoma ch Not Available Not Available Not Available 46268 doxycycli ne Not available other Not available [...] Address Organization Details Last Updated DateTime 5 76042.9 7 g 88 /min 18 /min 97.7 [degF] 96 % 96 % 138 mm[Hg] 68 mm[Hg] Estrellita Damico NP [address] , [address], [place], [address], [facility] 5 14:26:53 Date Recorded Heart rate Respiratory rate Body temperature Oxygen saturation Oxygen saturation in Arterial blood by Pulse oximetry Systolic blood pressure Diastolic blood pressure Provider Name and Address Organization Details Last Updated DateTime 5 74 /min 18 /min 98 [degF] 98 % 98 % 137 mm[Hg] 68 mm[Hg] CRISTIANE MAN NP [address] [facility], [facility] [address], [place], [address], [facility] 5 11:50:29 Date Recorded Body weight Heart rate Respiratory rate Body temperature Oxygen saturation Oxygen saturation in Arterial blood by Pulse oximetry Systolic blood pressure Diastolic blood pressure Provider Name and Address Organization Details Last Updated DateTime 5 98738.2 3 g 73 /min 18 /min 97.3 [degF] 95 % 95 % 116 mm[Hg] 63 mm[Hg] Estrellita Damico NP [address] [facility] [address], [place], [address], [facility] 5 09:33:11 Date Recorded Heart rate Systolic blood pressure Diastolic blood pressure Provider Name and Address Organization Details Last Updated DateTime 11/10/2024 70 /min 116 mm[Hg] 63 mm[Hg] Estrellita Damico NP [address] [facility] [address], [place], [address], [facility] 11/11/2024 08:25:19 Date Recorded Heart rate Respiratory rate Body temperature Oxygen saturation Oxygen saturation in Arterial blood by Pulse oximetry Systolic blood pressure Diastolic blood pressure Provider Name and Address Organization Details Last Updated DateTime 5 76 /min 18 /min 97.5 [degF] 97 % 97 % 140 mm[Hg] 80 mm[Hg] CRISTIANE MAN NP [address] [facility] [address], [place], [address], [facility] 5 12:06:34 Social History Question Answer Notes LastModified by Organization Details LastModified Time Tobacco Smoking Status Former Smoker smoked for one yr in her 20s Estrellita Damico NP [address] [facility] [address], [place], [address], [facility] 10/17/2024 10:30:23 Do You Have An [...] recorded. Family History Nothing Reported Notes:brother: maciej brot her 2 strokes mother: healthy father: with jaundice unsure of details Medical History No medical history recorded. Gynecological HistoryNo gynecological history recorded. Obstetrics History GPAL:G 0 P 0 0 0 0 Immunizations Vaccine Type Date Status Note Provider Nam e and Address Organization Details Recorded Time SARS-COV-2 (COVID-19) vaccine, UNSPECIFIED 4 completed Valencia Yoo [facility] 10/17/2024 14:17:30 SARS-COV-2 (COVID-19) vaccine, UNSPECIFIED 1 completed Valencia Yoo [facility] 10/17/2024 14:17:52 SARS-COV-2 (COVID-19) vaccine, UNSPECIFIED 1 mckenna Yoo [facility] 10/17/2024 14:17:59 SARS-COV-2 (COVID-19) vaccine, UNSPECIFIED 1 completed Valencia Fredo [facility] 10/17/2024 14:18:07 SARS-COV-2 (COVID-19) vaccine, UNSPECIFIED 2 completed Valencia Fredo [facility] 10/17/2024 14:18:14 Td(adult) unspecified formulation 8 completed Valencia Fredo [facility] 10/17/2024 14:18:32 Pneumococcal conjugate PCV 13 [...] [facility] 10/17/2024 14:19:38 SARS-COV-2 (COVID-19) vaccine, UNSPECIFIED 1 completed Valencia Fredo [facility] 10/17/2024 14:19:51 SARS-COV-2 (COVID-19) vaccine, UNSPECIFIED 1 completed Valencia Fredo [facility] 10/17/2024 14:20:01 SARS-COV-2 (COVID-19) vaccine, UNSPECIFIED 1 completed Valencia Fredo [facility] 10/17/2024 14:20:09 SARS-COV-2 (COVID-19) vaccine, UNSPECIFIED 2 completed Valencia Fredo [facility] 10/17/2024 14:20:17 zoster, unspecified formulation 3 completed Valencia Fredo [facility] 10/17/2024 14:24:16 zoster, unspecified formulation completed Valencia martin [place] [facility] 10/17/2024 14:24:26 Past Encounters Encounter ID Performer Location Encounter Start Date Encounter Closed Date Diagnosis/Indication Diagnosis SNOMED-CT Code Diagnosis ICD10 Code Diagnosis Note [id number] Estrellita Damico NP [address] [address] 10/17/2024 09:25:54 10/20/2024 13:52:21 Closed fracture of pubic ramus 2724278342 S32.501D CT pelvis showed right superior pubic ramus and right sacral ala.She is NWB status to right lower extremity with wheelchair transfer'p ain control as belowneeds to fu with ortho in 2 weeks Fracture of radius 22409 007 S52.90XA sp mechanical fall dx with [...] 2 weeks with ortho Hypertensive disorder 38 436214 I10 with hx of htn with elevated bp controlled on losartan 50 mg po qd started in hospitalmo nitor vitals and for need to adjust Osteoporosis 45329203 M8 1.0 hx ofmulivita min qdcal carb bidbiotin qdmonitor Hyperlipidemia 78404664 E78.5 pravastati n 10mg po qdasa qdmonitor Insomnia 598587450 G47.0 0 pt with poor sleep overnight start melatoinin 10 mg po qhsmonitor At high risk for fall 45 50198485 32810694 Z91.89 pt with mechanical fallno assistive devicessup portive carept ot eval and treatmonit or Asthenia 60121289 R53.1 pt pt/ot eval and treatsuppo rtive caremonito r [id number] Giovanni Coffey MD [facility] [address] [address] 10/21/2024 14:23:49 10/22/2024 12:07:02 Drug-induced constipation 26246275 K59.03 add sennabowel protocolmo nitor for effect Closed fra cture of pubic ramus 7820642794 S32.501D see HPINWB till cleared by orthodiscu ssed with therapyupd ate with concernsmo nitor for pain controlf/u in place Fracture of radius 97576 007 S52.90XA s/p ORIFfollow ortho recs and update with concernsed divya improvedmo nitor for pain control Hypertensive disorder 38 367240 I10 currently onlosartan 50 mg qdmonitor need to titrate if remains elevated Hyperlipidemia 91398742 E78.5 pravastati n 10 mg po qdcontinue d Insomnia 641760645 G47.0 0 melatonin 10 mg po qhsmonitor for effect Asthenia 67500731 R53.1 therapy to followcoor dinate with ortho [id number] CRISTIANE MAN NP [facility] [address] [address] 10/22/2024 10:45:58 10/24/2024 15:39:10 Closed fracture of pubic ramus 4955273014 S32.501D see HPINWB till cleared by orthoPT [...] q mond. x 3 Fracture of radius 49559 007 S52.90XA s/p ORIFNWBSof t cast and sling in place - continueCo ntinue pain meds as aboveMonit or VS, CSM, pain for changesfol low ortho recs and update with concerns Drug-induc ed constipation 97310797 K59.03 Still backed up.Encoura ging use of supp or fleets to get bowels moving ( its right there )D/C senna and colace, change to senna-plus 2 tabs daily, hold for loose stool.Add miralax dailyMaint ain fluidsMikey tor closely and continue to adjust tx. Hypertensive disorder 38 960506 I10 No recent VS - now ordered dailycurre ntly onlosartan 50 mg qdmonitor need to titrate if remains elevated Hyperlipidemia 51058988 E78.5 Continue pravastati n 10 mg po qdSl. elevation in LFTs - is on APAP as wellCMP q mond. x 3 Insomnia 111239010 G47.0 0 On melatonin 10 mg po [...] now to help with relaxation and sleep.mikey wilson for effect Asthenia 82050876 R53.1 therapy to followcoor dinate with ortho [id number] Estrellita Damico NP [address] [address] 10/24/2024 14:25:11 10/27/2024 15:33:43 Closed fracture of pubic ramus 1422251158 S32.501D see HPINWB to RUE and RLE till cleared by orthoPT OT eval and txcomforta ble at present with pain regimenupd ate Ortho with concerns prnMonitor VS, pain, CSM for change. 10/24 dc ASA to 325 mg bid10/24 started on eliquis 10 mg po bid x 7 days and then 5mg po bid for DVTCBC, CMP q mond. x 3 Fracture of radius 77269 007 S52.90XA s/p ORIFNWB to RUEcontSof t cast and sling in placeConti nue pain meds as aboveMonit or VS, CSM, pain for changesfol low ortho recs and update with concerns prn Hypertensive disorder 38 704194 I10 stablecurr ently onlosartan 50 mg qdmonitor need to titrate if remains elevated Asthenia 15246406 R53.1 therapy to followcoor dinate with ortho Deep venou s thrombosis of lower extremity 638655593 I82.409 10/24 RLE DVTstart eliquis 10 mg po bid x 7days, then 5mgpo bidno s/s of decreased circulatio n to RLEmonitor cms, pain, vitals, bleeding [id number] CRISTIANE MAN NP [facility] [address] 10/30/2024 09:30:35 11/03/2024 11:55:25 Deep venous thrombosis of lower extremity 134089512 I82.409 10/24 RLE DVTstarted eliquis 10 mg po bid x 7days, then 5mg po bidASA stoppedmon itor cms, pain, vitals, bleedingDu e for CBC in am Closed fra cture of pubic ramus 5955407262 S32.501D see HPINWB to RUE and RLE till cleared by orthoPT OT eval and txcomforta ble at present with pain regimenupd ate Ortho with concerns prnMonitor VS, pain, CSM for change.Ort ho follow up Tuesday 10/24 d/c'd ASA due to RLE DVT, now on eliquisCBC , CMP q . x 3 Fracture of radius 69351 007 S52.90XA s/p ORIFNWB to RUEcontSof t cast and sling in placeConti nue pain meds as aboveMonit or VS, CSM, pain for changesfol low ortho recs and update with concerns prnOrtho follow up tomorrow. Hypertensive disorder 38 558514 I10 stablecurr ently onlosartan 50 mg qdmonitor need to titrate if remains elevated Asthenia 19675472 R53.1 therapy to followcoor dinate with ortho [id number] Estrellita Damico NP [facility] [address] [address] 11/07/2024 09:32:31 11/07/2024 10:20:44 Deep venous thrombosis of lower extremity 451887083 I82.409 RLE DVTcont eliquis 5mg po bid, completed eliquis 10 mg po bid x 7days started on 10/24ASA stopped, now on eliquismon itor cms, pain, vitals, bleedingmo nitor labs Closed fra cture of pubic ramus 0164953026 S32.501D NWB to RUE and RLE till cleared by orthoPT OT eval and txcomforta ble at present with pain regimenupd ate Ortho with concerns prnMonitor VS, pain, CSM for change.Ort ho follow up Friday 11/10oxycodo ne and tyl sched10/24 d/c'd ASA due to RLE DVT, now on eliquisCBC , CMP q mon. x 3 Fracture of radius 68258 007 S52.90XA s/p ORIFNWB to RUEcontoxy codone and tylenol schedcast in placeConti nue pain meds as aboveMonit or VS, CSM, pain for changesfol low ortho recs and update with concerns prnOrtho follow up on 11/10 for hipnsg to get fu note from 10/31 for further rec Hypertensive disorder 38 832148 I10 stable 116/63curr ently onlosartan 50 mg qdmonitor need to titrate if remains elevated Asthenia 05052121 R53.1 therapy to followcoor dinate with ortho Dysuria 29404210 R30.0 co dysuria with urination and urgency for 1-2 days intermitte ntlyua obtained last nightfu with results [id number] Estrellita Damcio NP [address] [address] 11/10/2024 14:29:31 11/11/2024 08:27:14 Deep venous thrombosis of lower extremity 030913495 I82.409 RLE DVTcont eliquis 5mg po bid, completed eliquis 10 mg po bid x 7days started on 10/24ASA stopped, now on eliquismon itor cms, pain, vitals, bleedingmo nitor labs Closed fra cture of pubic ramus 2980540033 S32.501D NWB to RUE and RLE till cleared by orthoPT OT eval and txcomforta ble at present with pain regimenupd ate Ortho with concerns prnMonitor VS, pain, CSM for change.Ort ho follow up Friday 11/10oxycodo ne and tyl sched10/24 d/c'd ASA due to RLE DVT, now on eliquisCBC , CMP q . x 3 Fracture of radius 50047 007 S52.90XA s/p ORIFNWB to RUEcontoxy codone and tylenol schedcast in placeConti nue pain meds as aboveMonit or VS, CSM, pain for changesfol low ortho recs and update with concerns prnOrtho follow up on 11/10 for hipnsg to get fu note from 10/31 for further rec Hypertensive disorder 38 696663 I10 stable 116/63curr ently onlosartan 50 mg qdmonitor need to titrate if remains elevated Asthenia 80174728 R53.1 therapy to followcoor dinate with orthoremai ns RLE MADAN NWB for now Acute urin sapphire tract infection 759251059 N39.0 co dysuria with urination and urgency for 1-2 days intermitte ntlypositi ve for uti sensitive to macrobidpr obiotic addedmonit or for resolution /sequelae [id number] CRISTIANE MAN NP [address] [address] 11/13/2024 09:17:07 11/13/2024 12:46:02 Acute urinary tract infection 823364406 N39.0 co dysuria and urgency for 1-2 days intermitte ntly last week, UA C&S obtained and pos. for E. Coli UTI, >100KTreat ing with macrobid, to complete todayMaint ain fluids, monitor Deep venou s thrombosis of lower extremity 697311146 I82.409 RLE DVTcont eliquis 5mg po bidASA stopped while on ACmonitor cms, pain, vitals, bleedingmo nitor labsRepeat 3 month US end of January Closed fra cture of pubic ramus 1258193492 S32.501D NWB to RUE and RLE till [...] ASA, new RLE DVT Fracture of radius 31003 007 S52.90XA s/p ORIFNWB to RUEcontoxy codone and tylenol schedcast in placeConti nue pain meds as aboveMonit or VS, CSM, pain for changesfol low ortho recs and update with concerns prnOrtho follow up as sched.nsg to get fu note from 10/31 for further rec Hypertensive disorder 38 338565 I10 VSScurrent ly onlosartan 50 mg qdmonitor need to titrate if remains elevated Asthenia 50118654 R53.1 therapy to followcoor dinate with ortho 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 and daughter req. to start [...] Member ID Celestin Member ID Guarantor Name 10/24/2024 1 [place] P[place]) [id number] Dayna Goldberg [id number] Dayna Goldberg 10/30/2024 1 [place]) [id number] Dayna Goldberg [id number] Dayna Goldberg 11/07/2024 1 [place]) [id number] Dayna Goldberg [id number] Dayna Goldberg 11/10/2024 1 [place]PO) [id number] Dayna Goldberg [id number] Dayna Goldberg 11/13/2024 1 [facility]: MEDICARE PPO BLUE (MEDICARE REPLACEMENT PPO) [id number] Dayna Goldberg [id number] Dayna Goldberg Notes Date Note Type Note Provider Name and Address Organization Details Recorded Time 10/24/2024 text/html Dayna is a 79 yo female seen today for an acute visit in regards to her DVT. PMH: HTN, HLD, Gait instability She is seen in regards to DVT to RLE with occlusive thrombus of right superfical femoral pain. Due to risk of bleeding from recent pelvic fractures and radial fractures was sent to [facility] for evaluation. U/S done at [facility] showing similar results and started on eliquis [...] f/u in place. Estrellita Damico NP [address] [facility] [facility], [address], [place], [address], [facility] 10/24/2024 14:45:29 10/30/2024 text/html Dayna is seen [...] fractures and radial fractures was sent to [facility] for evaluation. U/S done at [facility] showing similar results and started on eliquis 10 mg po bid x 7 days and then 5mg po daily thereafter. Twyla. well so far.Laxatives added for bowels, moving [...] HTN, HLD, Gait instability CRISTIANE MAN NP [address] [place] [address], [address], [place], [address], [facility] 10/30/2024 12:10:38 11/07/2024 text/html Pt is seen [...] fractures and radial fractures was sent to [facility] for evaluation. U/S done at [facility] showing similar results and started on eliquis [...] and has a negative homans sign. Estrellita Damico, JESS [address] [facility] [facility], [address], [place], [address], [employer] [facility] [employer] 11/07/2024 10:20:43 11/10/2024 text/html Pt is seen today for an acute rounding visit. PMH: HTN, HLD, Gait instability Dayna is a 79 yo female who presented from hospital [...] fractures and radial fractures was sent to [facility] for evaluation. U/S done at [facility] showing similar results and started on eliquis [...] and has a negative homans sign. Estrellita Damico, JESS [address] [facility] [facility], [address], [place], [address], [place] [facility] [employer] 11/11/2024 08:27:12 11/13/2024 text/html Lianna is seen toda y [...] injections. PMH: HTN, HLD, Gait instability CRISTIANE MAN NP [address] [facility], [address], [place], [address], [facility] 11/13/2024 12:46:01 OBGyn Episode No OBEpisode recorded.
--- OUTSIDE RECORDS SUMMARY | 2024-11-14 08:26 | XMS_ITS | Clinical Summary ---
Author Organization 175 [facility] Address [address] [place] [address] Phone Care Team Providers Care Hairspring Ii Inspector Name Role Phone Carlita Villegas MD Primary Care Provider [phone] Allergies Active Allergy Reactions Criticality Noted Date [...] agreeable with the plan. Ascending aorta dilatation (CMS/HCC V24) 022 Subclinical hypothyroidism 11/10/2021 Hyperlipidemia 03/13/2015 Overview (05/27/2024): Total cholesterol 205, LDL cholesterol 122, 10/08/2014. Allergic rhinitis 07/10/2014 Tubular adenoma 03/20/2012 Overview (05/27/2024): Tubular adenoma at the HF 2009. Normal CN to the mid right colon 03/20/2012. Next CN 2016. History of varicose veins 02/14/2012 Osteoporosis 12/30/2010 Headache 03/05/2007 Encounters Date Type Department Care Team Description 11/13/2024 Lab Requisition [facility] - Main Lab [address] [place] [address] Giovanni Coffey MD Essential (primary) hypertension; Hyperlipidemia, unspecified; Unspecified osteoarthritis, unspecified site; Encounter for other orthopedic aftercare 11/09/2024 Lab Requisition [facility] Lab [address] [place] [address] Giovanni Coffey MD Essential (primary) hypertension; Hyperlipidemia, unspecified 11/07/2024 Lab Requisition [facility] Lab [address] [place] [address] Giovanni Coffey MD Essential (primary) hypertension 11/06/2024 Lab Requisition [facility] Lab [address] [place] [address] Giovanni Coffey MD Essential (primary) hypertension; Hyperlipidemia, unspecified; Unspecified osteoarthritis, unspecified site; Encounter for other orthopedic aftercare 11/01/2024 Lab Requisition [facility] Lab [address] [place] [address] Giovanni Coffey MD Essential (primary) hypertension; Hyperlipidemia, unspecified 10/30/2024 Lab Requisition [facility] Lab [address] [place] [address] Giovanni Coffey MD Essential (primary) hypertension; Hyperlipidemia, unspecified; Unspecified osteoarthritis, unspecified site; Encounter for other orthopedic aftercare 10/27/2024 Lab Requisition [facility] Lab [address] [place] [address] Giovanni Coffey MD Essential (primary) hypertension; Hyperlipidemia, unspecified 10/23/2024 Lab Requisition [facility] Lab [address] [place] [address] Giovanni Coffey MD Essential (primary) hypertension; Hyperlipidemia, unspecified; Unspecified osteoarthritis, unspecified site; Encounter for other orthopedic aftercare 10/17/2024 Lab Requisition [facility] Lab [address] [place] [address] Giovanni Coffey MD Essential (primary) hypertension; Hyperlipidemia, unspecified 10/17/2024 Telephone Endocrinology - [facility] [address] [place] [address] Lisandro Cohen MA prolia info needed 10/14/2024 Telephone [facility] - [facility] [address] [place] [address] Carlita Villegas MD from Last 3 Months Immunizations Name Administration [...] COMMENT: bleeding COLONOSCOPY W/ BIOPSIES 04/07/2010 PROCEDURE: MI COLONOSCOPY STOMA W/BIOPSY SINGLE/MULTIPLE; COMMENT: Up to cecum, good preparation, 15mm polyp at ascending partially removed:tubular adenoma, transverse colon polyp removed.:ulcerated inflammatory polyp COLONOSCOPY 03/20/2012 PROCEDURE: MI COLONOSCOPY FLX DX W/COLLJ SPEC WHEN PFRMD; COMMENT: normal to mid right colon, very difficult exam. BREAST SURGERY 08/06/1986 Left PROCEDURE: MI UNLISTED PROCEDURE BREAST; COMMENT: benign Medical History [...] 10:00 AM EST Office Visit Endocrinology - [facility] [address] [place] [address] Gisell Villegas PA [address] [place] [address] 08/26/2025 10:00 AM EST Office Visit Vascular Surgery - [place] [address] [facility] [address] [place] [address] Priya Lopez MD [address] [place] [address] Health Maintenance Due Date Last Done Comments RSV Immunization Adult Patients (1 - 1-dose 75+ series) 2019 Zoster Vaccines (3 of 3) 07/26/2021 05/31/2021, 03/06 Colorectal Cancer Screening: Colonoscopy 07/15/2022 05/08/2017 Depression Screening 07/15/2022 Falls Risk Assessment 07/15/2022 Medicare Annual Wellness Visit 07/15/2022 Social Influencers of Health Screening 07/15/2022 Hypertension/CHF/CAD Annual BMP Blood Test 11/10/2025 11/10/2024, 11/07/2024, 11/03/2024, Additional history exists DTaP,Tdap,and Td Vaccines (2 [...] age to complete this topic Meningococcal B Vaccine Aged Out No l onger eligible based on patient's age to complete this topic RSV Immunization Patients Under 20 months Aged Out No longer eligible based on patient's age to complete this topic Varicella Vaccines Aged Out No longer eligible based on patient's age to complete this topic Procedures Procedure Name Priority Date/Time Associated Diagnosis Comments COMPREHENSIVE METABOLIC PANEL Routine 11/10/2024 6:40 AM EDT Essential (primary) hypertension Hyperlipidemia, unspecified COMPLETE BLOOD COUNT Routine 11/10/2024 6:40 AM [...] XRAY REPORT 10/13/2024 EXTERNAL XRAY REPORT 10/13/2024 DXA BONE DENSITY STUDY 1+ SITS AXIAL SKEL Routine 03/22/2023 10:49 AM EDT Age-related osteoporosis without current pathological fracture HM COLONOSCOPY Routine 05/08/2017 from Last 3 Months or Most Recently Relevant to Health Maintenance Results * (ABNORMAL) Complete blood count (11/10/2024 6:40 AM EDT) Only the most recent of7 resultswithin the time period is included. [facility] Signature WBC 3.7(L) 4.8 - 10.8 K/mcL LAB HEMETOLOGY METHOD 11/10/2024 11:50 AM EDT [facility] RBC 3.70(L) 3.80 - 4.80 M/[facility] LAB HEMETOLOGY METHOD 11/10/2024 11:50 AM [facility] LAB Hemoglobin 11.6 11.5 - 16.0 g/dL LAB HEMETOLOGY METHOD 11/10/2024 11:50 AM [facility] LAB Hematocrit 36.4 35.0 - 47.0 % LAB HEMETOLOGY METHOD 11/10/2024 11:50 AM [facility] LAB MCV 98.4(H) 79.0 - 98.0 FL LAB HEMETOLOGY METHOD 11/10/2024 11:50 AM [facility] LAB MCH 31.4 27.0 - 32.0 pcg LAB HEMETOLOGY METHOD 11/10/2024 11:50 AM [facility] LAB MCHC 31.9(L) 32.0 - 37.0 g/dL LAB HEMETOLOGY METHOD 11/10/2024 11:50 AM [facility] LAB RDW 13.2 11.0 - 15.0 % LAB HEMETOLOGY METHOD 11/10/2024 11:50 AM [facility] Platelets 210 130 - 400 K/mcL LAB HEMETOLOGY METHOD 11/10/2024 11:50 AM [facility] LAB MPV 10.7 7.0 - 11.0 FL LAB HEMETOLOGY METHOD 11/10/2024 11:50 AM [facility] LAB NRBC 0.0 <1.0 % LAB HEMETOLOGY METHOD 11/10/2024 11:50 AM [facility] LAB NRBC Absolute 0.00 <0.10 K/mcL LAB HEMETOLOGY METHOD 11/10/2024 11:50 AM [facility] LAB Blood Venous blood specimen / Unknown Venipuncture / Unknown 11/10/2024 6:40 AM EDT 11/10/2024 11:16 AM EDT us Giovanni Alexx MD LAB BLOOD ORDERABLES Final Resul t [facility] [address] [place] [address], [place] [phone] * (ABNORMAL) Comprehensive metabolic panel (11/10/2024 6:40 AM EDT) Only the most recent of7 resultswithin the time period is included. Sodium 137 133 - 145 mmol/L LAB CHEMISTRY METHOD 11/10/2024 1:09 PM [facility] Potassium 4.1 3.5 - 5.5 mmol/L LAB CHEMISTRY METHOD 11/10/2024 1:09 PM [facility] Chloride 103 96 - 110 mmol/L LAB CHEMISTRY METHOD 11/10/2024 1:09 PM [facility] CO2 27 21 - 32 mmol/L LAB CHEMISTRY METHOD 11/10/2024 1:09 PM [facility] Anion Gap 7 3 - 11 LAB CHEMISTRY METHOD 11/10/2024 1:09 PM [facility] Glucose 86 70 - 100 mg/dL LAB CHEMISTRY METHOD 11/10/2024 1:09 PM [facility] BUN 13 5 - 25 mg/dL LAB CHEMISTRY METHOD 11/10/2024 1:09 PM [facility] Creatinine 0.66 0.50 - 1.10 mg/dL LAB CHEMISTRY METHOD 11/10/2024 1:09 PM [facility] eGFR 89 >=60 mL/min/1. 73m2 LAB CHEMISTRY METHOD 11/10/2024 1:09 PM [facility] Comment:Calculation based on the??Chronic Kidney Disease Epidemiology Collaboration (CKD-EPI) equation refit??without adjustment for race. BUN/Creatinine Ratio 19.7 LAB CHEMISTRY METHOD 11/10/2024 1:09 PM [facility] Calcium 9.0 8.5 - 10.5 mg/dL LAB CHEMISTRY METHOD 11/10/2024 1:09 PM EDT [facility] AST (SGOT) 17 10 - 42 unit/L LAB CHEMISTRY METHOD 11/10/2024 1:09 PM EDT [facility] ALT (SGPT) 27 10 - 60 unit/L LAB CHEMISTRY METHOD 11/10/2024 1:09 PM EDT [facility] Alkaline Phosphatase 140(H) 42 - 121 unit/L LAB CHEMISTRY METHOD 11/10/2024 1:09 PM EDT [facility] Total Protein 6.7 6.0 - 8.0 g/dL LAB CHEMISTRY METHOD 11/10/2024 1:09 PM EDT [facility] Albumin 3.3 3.2 - 5.0 g/dL LAB CHEMISTR[facility] Total Bilirubin 0.4 0.0 - 1.4 mg/dL LAB CHEMISTRY METHOD 11/10/2024 1:09 PM EDT [facility] Blood Venous blood specimen / Unknown Venipuncture / Unknown 11/10/2024 6:40 AM EDT 11/10/2024 11:16 AM EDT us Giovanni Coffey MD LAB BLOOD ORDERABLES Final Resul t [facility] [address] [place] [address], * (ABNORMAL) C-reactive protein (11/07/2024 8:03 AM EDT) Only the most recent of4 resultswithin the time period is included. C-Reactive Protein 0.97(H) <=0.50 mg/dL LAB CHEMISTRY METHOD 11/07/2024 11:56 AM EDT [facility] Blood Venous blood specimen / Unknown Venipuncture / Unknown 11/07/2024 8:03 AM EDT 11/07/2024 10:42 AM EDT us Giovanni Coffey MD LAB BLOOD ORDERABLES Final Resul t [facility] [address] [place] [address], [place] [phone] * (ABNORMAL) Urinalysis with reflex microscopic (11/06/2024 9:28 PM EDT) Specific [place] Urine 1.014 1.003 - 1.030 LAB URINALYSIS - AUTOMATED METHOD 11/07/2024 11:48 AM [facility] pH, Urine 6.0 5.0 - 8.0 pH LAB URINALYSIS - AUTOMATED METHOD 11/07/2024 11:48 AM [facility] Leukocytes, Urine Large(A) Negative LAB URINALYSIS - AUTOMATED METHOD 11/07/2024 11:48 AM [facility] Nitrite, Urine Positive(A) Negative LAB URINALYSIS - AUTOMATED METHOD 11/07/2024 11:48 AM [facility] Protein, Urine 30(A) <=Trace mg/dL LAB URINALYSIS - AUTOMATED METHOD 11/07/2024 11:48 AM [facility] Glucose, Urine Negative Negative mg/dL LAB URINALYSIS - AUTOMATED METHOD 11/07/2024 11:48 AM [facility] Ketones, Urine Negative Negative mg/dL LAB URINALYSIS - AUTOMATED METHOD 11/07/2024 11:48 AM [facility] Urobilinogen , Urine 0.2 0.2 - 1.0 mg/dL LAB URINALYSIS - AUTOMATED METHOD 11/07/2024 11:48 AM [facility] Bilirubin, Urine Negative Negative LAB URINALYSIS - AUTOMATED METHOD 11/07/2024 11:48 AM [facility] Blood, Urine Large(A) Negative LAB URINALYSIS - AUTOMATED METHOD 11/07/2024 11:48 AM EDT [facility] RBC, Urine 7.7(H) 0 - 4 /HPF LAB URINALYSIS - AUTOMATED METHOD 11/07/2024 11:48 AM EDT [facility] WBC, Urine 357.6(H) 0 - 4 /HPF LAB URINALYSIS - AUTOMATED METHOD 11/07/2024 11:48 AM EDT [facility] Squamous Epithelial, Urine 12 0 - 60 /LPF LAB URINALYSIS - AUTOMATED METHOD 11/07/2024 11:48 AM EDT [facility] Bacteria, Urine Many(A) Negative /HPF LAB URINALYSIS - AUTOMATED METHOD 11/07/2024 11:48 AM [facility] Hyaline Casts, Urine 0.4 0 - 3 /LPF LAB URINALYSIS - AUTOMATED METHOD 11/07/2024 11:48 AM [facility] Urine Urine specimen from urethra / Unknown Non-blood Collection / Unknown 11/06/2024 9:28 PM EDT 11/07/2024 10:51 AM EDT us Giovanni Coffey MD LAB URINE ORDERABLES Final Resul t [facility] [address] [place] [address], * (ABNORMAL) Culture urine (11/06/2024 9:28 PM EDT) Culture, Urine >100,000 CFU/mL Escherichia coli(A) DANO 11/09/2024 9:22 AM EDT [facility] Urine Urine specimen from [...] MICROBIOLOGY - GENERAL ORDER ERWIN Final Result [facility] [address] [place] [address], [place] [phone] * External Vascular Ultrasound (10/23/2024) Only the most recent of4 resultswithin the time period is included. Anatomical Region Laterality Modality Ultrasound us Provider [facility] CV VASCULAR PROCEDURES F inal Result * Lipid panel with reflex to direct LDL (10/17/2024 8:47 AM EDT) Cholesterol 173 0 - 200 mg/dL LAB CHEMISTRY METHOD 10/17/2024 11:42 AM EDT [facility] Triglycerides 101 0 - 150 mg/dL LAB CHEMISTRY METHOD 10/17/2024 11:42 AM EDT [facility] HDL 55 >=40 mg/dL LAB CHEMISTRY METHOD 10/17/2024 11:42 AM EDT [facility] LDL Calculated 98 0 - 100 mg/dL LAB CHEMISTRY METHOD 10/17/2024 11:42 AM EDT [facility] VLDL Cholesterol Waldemar 20.2 mg/dL LAB CHEMISTRY METHOD 10/17/2024 11:42 AM EDT [facility] Non HDL Chol. (LDL+VLDL) 118 <145 mg/dL LAB CHEMISTRY METHOD 10/17/2024 11:42 AM EDT [facility] Chol/HDL Ratio 3.1 0.0 - 4.4 LAB CHEMISTRY METHOD 10/17/2024 11:42 AM EDT [facility] Blood Venous blood specimen / Unknown Venipuncture / Unknown 10/17/2024 8:47 AM EDT 10/17/2024 10:31 AM EDT Giovanni Coffey MD LAB BLOOD ORDERABLES Final Resul t [facility] [address] [place] [address], [place] [phone] * External Xray Report (10/13/2024) Only the most recent of2 resultswithin the time period is included. Anatomical Region Laterality Modality Radiographic Nicole ging us Provider [facility] IMG XR PROCEDURES Final Result * DXA BONE DENSITY [...] IMPRESSION: ?? Osteoporosis by WHO criteria. [facility] Department of Internal Medicine [...] alternative screening schedule based on may Amaya., [facility] August 24, 2011 for patients with osteopenia [...] IMPRESSION: IMPRESSION: Osteoporosis by WHO criteria. [facility] Department of Internal Medicine [...] alternative screening schedule based on [facility]., [facility] for patients with osteopenia (based on [...] Anatomical Region Laterality Modality Other Historical Provider MD HEALTH MAINTENANCE Final Result from Last 3 Months or Most Recently Relevant to Health Maintenance Insurance [facility] MEDICARE ADVANTAGE [facility] MEDICARE ADVANTAGE MEDICARE [facility] Care Teams Hairspring Ii Inspector Relationship Specialty Start Date End Date Carlita Villegas MD [address] [place] [phone] (work) PCP - General 08/25/22
== END 2024-11-14 08:21 | disposition home or self-care (01) ==
LOC: HO.HOSX 08:20
DX: M25.531 Pain in right wrist (principal); S52.501D Unspecified fracture of the lower end of right radius, subsequent encounter for closed fracture with routine healing; S52.221D Displaced transverse fracture of shaft of right ulna, subsequent encounter for closed fracture with routine healing; Z98.890 Other specified postprocedural states; Z96.7 Presence of other bone and tendon implants
CPT/HCPCS: 73110; 99212

== ENCOUNTER 2024-11-14 11:07 | Outpatient (AMB) | payer MEDICARE, SELFPAY ==
--- NOTE | 2024-11-14 11:43 | A.OFFVIS_ITS ---
Intake Visit Reasons: PO-I&D &ORIF of RT distal radius and ulna-10/13/24 Intake Note: Dayna is an 79 year old female who presents today post-operatively status post Right Distal Radius and Ulnar Shaft ORIF and I & D 10/13/2024. Patient reports she is doing well. Complains of pain on pin site. She is taking Oxycodone and Tylenol with relief of pain. Allergies azithromycin Adverse Reaction (Verified 11/14/24 11:53) Stomach Upset doxycycline Adverse Reaction (Verified 11/14/24 11:53) Gastrointestinal Upset sulfamethoxazole [From Bactrim] Adverse Reaction (Verified 11/14/24 11:53) Stomach Upset trimethoprim [From Bactrim] Adverse Reaction (Verified 11/14/24 11:53) Stomach Upset HPI HPI PO-I&D &ORIF of RT distal radius and ulna-10/13/24: Details: Dayna is an 79 year old female who presents today post-operatively status post Right Distal Radius and Ulnar Shaft ORIF and I & D 10/13/2024. Patient reports she is doing well. Complains of pain on pin site. She is taking Oxycodone and Tylenol with relief of pain. Patient reports that she feels she has improved significantly from prior to surgery. [facility] Medical History Enlarged aorta Osteoporosis Allergies Elevated cholesterol PONV (postoperative nausea and vomiting) HTN (hypertension) Surgical History Hx of colonoscopy Hx of left cataract extraction Hx of hysterectomy Hx of tonsillectomy Social History Household Members: None Housing: House Do you presently have visiting nurse or other home services: No Unable to assess alcohol history related to: Unknown Alcohol intake: never Patient Tobacco Use Status: Former Tobacco user Second Hand Smoke Exposure: No Advance Directives Date on File: 11/29/23 service: No Current occupational status: retired Current occupation: right hand dominant Physical Exam Extrem Other: Patient is alert, oriented, and in no acute distress. Neuro: Normal sensation of the tips of all digits of the right hand at this time Vascular: Cap refill brisk Pain: No tenderness to palpation about fracture sites on the right wrist ROM: Patient is able to make closed fist and extend all digits right fully Skin: Well approximated well healing incision site noted on the volar right wrist Well approximated and well healing laceration site on the ulnar right wrist Sutures in place Pin site clean, dry, intact, no evidence of infection General: No ecchymosis, erythema, or evidence of infection. Psych: Appears grossly normal Affect normal Attitude cooperative Results Reviewed Results Reviewed: X-rays obtained in the office today and independently reviewed by me, Luke López PA-C, demonstrate surgically reduced fractures of the right distal radius and distal ulna with all orthopedic hardware in place and in satisfactory clinical alignment and with early evidence of interval bony healing Assessment & Plan Assessment & Plan (1) Fracture of radius and ulna, open: Code(s): S52.90XB - Unspecified fracture of unspecified forearm, initial encounter for open fracture type I or II; S52.209B - Unspecified fracture of shaft of unspecified ulna, initial encounter for open fracture type I or II Category: Medical Plan 1. Open right distal rupture 2. Open right distal ulna fracture Status post ORIF DOS 10/13/2024 Patient appears to be recovering well postoperatively Patient was educated about the typical recovery course At this time, patient was removed from cast and placed into a Velcro wrist splint Pin removed in the office today without issue Patient is educated that she should avoid getting the pin site wet until the site has closed up fully, most likely in the next 1-2 days Patient was educated that she should continue with 2 lb weight limit Velcro wrist splint to be worn like cast for the next week, and then to be removed while at rest and worn with daytime activities Patient was amenable to this plan Follow-up in 4 weeks with repeat x-rays, sooner with acute concerns Orders: Orders XR wrist RT min 3V Today M25.531 - Pain in right wrist Coding Level of Care Code Global (01854) Diagnoses Fracture of radius and ulna, open S52.90XB; S52.209B
--- OUTSIDE RECORDS SUMMARY | 2024-11-14 12:09 | XMS_ITS | Encounter Summary ---
Author Organization [facility] Address [address] [place] [address] Care Team Providers Care Cake Knocker Name Role Phone Carlita Villegas MD Primary Care Provider [phone] Encounter Details Date Type Department Care Team (Late st Contact Info) Description 10/30/[address] [facility] - Main Lab [address] [facility] [place] [address] Giovanni Coffey MD [address] [place] [address], [phone] Essential (primary) hypertension; Hyperlipidemia, unspecified; Unspecified [...] 10:00 AM EST Office Visit Endocrinology - [place] [address] [place], [place] [phone] Gisell Villegas PA [address] [place], [place] 08/26/2025 10:00 AM EST Office Visit Vascular Surgery - [place] [address] [place] [address] Priya Lopez MD [address] [place] [address] documented as of this encounter Procedures Procedure [...] LAB CHEMISTRY METHOD 10/31/2024 12:31 PM [facility] Potassium 4.3 3.5 - 5.5 mmol/L LAB CHEMISTRY METHOD 10/31/2024 12:31 PM [facility] Chloride 104 96 - 110 mmol/L LAB CHEMISTRY METHOD 10/31/2024 12:31 PM [facility] CO2 30 21 - 32 mmol/L LAB CHEMISTRY METHOD 10/31/2024 12:31 PM [facility] Anion Gap 4 3 - 11 LAB CHEMISTRY METHOD 10/31/2024 12:31 PM [facility] Glucose 122(H) 70 - 100 mg/dL LAB CHEMISTRY METHOD 10/31/2024 12:31 PM [facility] BUN 17 5 - 25 mg/dL LAB CHEMISTRY METHOD 10/31/2024 12:31 PM [facility] Creatinine 0.75 0.50 - 1.10 mg/dL LAB CHEMISTRY METHOD 10/31/2024 12:31 PM [facility] eGFR 81 >=60 mL/min/1. 73m2 LAB CHEMISTRY METHOD 10/31/2024 12:31 PM [facility] Comment:Calculation based on the??Chronic Kidney Disease Epidemiology Collaboration (CKD-EPI) equation refit??without adjustment for race. BUN/Creatinine Ratio 22.7 LAB CHEMISTRY METHOD 10/31/2024 12:31 PM [facility] Calcium 9.2 8.5 - 10.5 mg/dL LAB CHEMISTRY METHOD 10/31/2024 12:31 PM [facility] AST (SGOT) 43(H) 10 - 42 unit/L LAB CHEMISTRY METHOD 10/31/2024 12:31 PM [facility] ALT (SGPT) 60 10 - 60 unit/L LAB CHEMISTRY METHOD 10/31/2024 12:31 PM [facility] Alkaline Phosphatase 193(H) 42 - 121 unit/L LAB CHEMISTRY METHOD 10/31/2024 12:31 PM [facility] Total Protein 6.8 6.0 - 8.0 g/dL LAB CHEMISTRY METHOD 10/31/2024 12:31 PM [facility] Albumin 3.3 3.2 - 5.0 g/dL LAB CHEMISTRY METHOD 10/31/2024 12:31 PM [facility] Total Bilirubin 0.5 0.0 - 1.4 mg/dL LAB CHEMISTRY METHOD 10/31/2024 12:31 PM [facility] Blood Venous blood specimen / Unknown Venipuncture / Unknown 10/31/2024 8:53 AM EDT 10/31/2024 10:21 AM EDT us Giovanni Coffey MD LAB BLOOD ORDERABLES Final Resul t [facility] [address] [place] [address], * (ABNORMAL) Complete blood count (10/31/2024 8:53 AM EDT) WBC 5.0 4.8 - 10.8 K/mcL LAB HEMETOLOGY METHOD 10/31/2024 11:12 AM EDT [facility] RBC 3.70(L) 3.80 - 4.80 M/mcL LAB HEMETOLOGY METHOD 10/[facility]24 [facility] Hemoglobin 11.5 11.5 - 16.0 g/dL LAB HEMETOLOGY METHOD 10/31/2024 11[facility] Hematocrit 35.8 35.0 - 47.0 % LAB HEMETOLOGY METHOD 10/31/2024 11:[facility] MCV 97.8 79.0 - 98.0 FL LAB HEMETOLOGY METHOD 10/31/2024 11:12 [facility] MCH 31.4 27.0 - 32.0 pcg LAB HEMETOLOGY METHOD 10/31/2024 11:[facility] MCHC 32.1 32.0 - 37.0 g/dL LAB HEMETOLOGY METHOD 10/31/2024 11:12 AM EDT [facility] RDW 13.3 11.0 - 15.0 % LAB HEMETOLOGY METHOD 10/31/2024 11:12 AM EDT [facility] Platelets 283 130 - 400 K/mcL LAB HEMETOLOGY METHOD 10/31/2024 11:[facility] MPV 10.4 7.0 - 11.0 FL LAB HEMETOLOGY METHOD 10/31/2024 11:12 AM EDT [facility] NRBC 0.0 <1.0 % LAB HEMETOLOGY METHOD 10/31/2024 11:12 AM EDT [facility] NRBC Absolute 0.00 <0.10 K/mcL LAB HEMETOLOGY METHOD 10/31/2024 11:12 AM EDT [facility] Blood Venous blood specimen / Unknown Venipuncture / Unknown 10/31/2024 8:53 AM EDT 10/31/2024 10:21 AM EDT Giovanni Coffey MD LAB BLOOD ORDERABLES Final Resul t Performing Organization Address [facility]/ZIP Co de Phone Number [facility] [address] [place] [address], [place] [phone] * (ABNORMAL) C-reactive protein (10/31/2024 8:53 AM EDT) C-Reactive Protein 1.02(H) <=0.50 mg/dL LAB CHEMISTRY METHOD 10/31/2024 12:33 PM EDT [facility] Blood Venous blood specimen / Unknown Venipuncture / Unknown 10/31/2024 8:53 AM EDT 10/31/2024 10:21 AM EDT Giovanni Coffey MD LAB BLOOD ORDERABLES Final Resul t Performing Organization Address City/[facility]/ZIP Co de Phone Number [facility] [address] [place] [address], [place] [phone] documented in this encounter Visit Diagnoses Diagnosis Essential (primary) hypertension Unspecified essential hypertension Hyperlipidemia, unspecified Unspecified osteoarthritis, unspecified site Encounter for other orthopedic aftercare documented in this encounter Care Teams Cake Knocker Relationship Specialty Start Date End Date Carlita Villegas MD [address] [place] [phone] PCP - General 1/20/23 documented as of this encounter
--- OUTSIDE RECORDS SUMMARY | 2024-11-14 12:09 | XMS_ITS | Clinical Summary ---
Author Organization [address] [facility] Address [address] [place] [address] Phone Care Team Providers Care Head Correction Officer Name Role Phone Carlita Villegas MD Primary Care Provider [phone] Allergies Active Allergy Reactions Criticality Noted Date [...] Department Care Team Description 11/13/2024 Lab Requisition [facility] - Main Lab [address] [place] [address] Giovanni Coffey MD Essential (primary) hypertension; Hyperlipidemia, unspecified; Unspecified osteoarthritis, unspecified site; Encounter for other orthopedic aftercare 11/09/2024 Lab Requisition [facility] [address] [place] [address] Giovanni Coffey MD Essential (primary) hypertension; Hyperlipidemia, unspecified 11/07/2024 Lab Requisition [facility] [address] [place] [address] Giovanni Coffey MD Essential (primary) hypertension 11/06/2024 Lab Requisition [facility] [address] [place] [address] Giovanni Coffey MD Essential (primary) hypertension; Hyperlipidemia, unspecified; Unspecified osteoarthritis, unspecified site; Encounter for other orthopedic aftercare 11/01/2024 Lab Requisition [facility] [address] [place] [address] Giovanni Coffey MD Essential (primary) hypertension; Hyperlipidemia, unspecified 10/30/2024 Lab Requisition [facility] [address] [place] [address] Giovanni Coffey MD Essential (primary) hypertension; Hyperlipidemia, unspecified; Unspecified osteoarthritis, unspecified site; Encounter for other orthopedic aftercare 10/27/2024 Lab Requisition [facility] [address] [place] [address] Giovanni Coffey MD Essential (primary) hypertension; Hyperlipidemia, unspecified 10/23/2024 Lab Requisition [facility] [address] [place] [address] Giovanni Coffey MD Essential (primary) hypertension; Hyperlipidemia, unspecified; Unspecified osteoarthritis, unspecified site; Encounter for other orthopedic aftercare 10/17/2024 Lab Requisition [facility] [address] [place] [address] Giovanni Coffey MD Essential (primary) hypertension; Hyperlipidemia, unspecified 10/17/2024 Telephone Endocrinology - [place] [address] [place] [address] Lisandro Cohen [place] prolia info needed 10/14/2024 Telephone [facility] - [place] [address] [place] [address] Carlita Villegas MD from Last [...] COMMENT: bleeding COLONOSCOPY W/ BIOPSIES 04/07/2010 PROCEDURE: [facility] COLONOSCOPY STOMA W/BIOPSY SINGLE/MULTIPLE; COMMENT: Up to cecum, good preparation, 15mm polyp at ascending partially removed:tubular adenoma, transverse colon polyp removed.:ulcerated inflammatory polyp COLONOSCOPY 03/20/2012 PROCEDURE: [facility] COLONOSCOPY FLX DX W/COLLJ SPEC WHEN PFRMD; COMMENT: normal to mid right colon, very difficult exam. BREAST SURGERY 08/06/1986 Left PROCEDURE: [facility] UNLISTED PROCEDURE BREAST; COMMENT: benign Medical History [...] 10:00 AM EST Office Visit Endocrinology - [place] [address] [place] [address] Gisell Villegas PA [address] [place] [address] 08/26/2025 10:00 AM EST Office Visit Vascular Surgery - [place] [address] [facility] [address] [place] [address] Priya Lopez MD [address] [place] [address] Health Maintenance Due Date Last Done Comments RSV Immunization Adult Patients (1 - 1-dose 75+ series) 2019 Zoster Vaccines (3 of 3) 07/26/2021 05/31/2021, 03/06 Colorectal Cancer Screening: Colonoscopy 07/15/2022 05/08/2017 Depression Screening 07/15/2022 Falls Risk Assessment 07/15/2022 Medicare Annual Wellness Visit 07/15/2022 Social Influencers of Health Screening 07/15/2022 Hypertension/CHF/CAD Annual BMP Blood Test 11/10/2025 11/14/2024, 11/10/2024, 11/07/2024, Additional history exists DTaP,Tdap,and Td Vaccines (2 [...] Associated Diagnosis Comments COMPREHENSIVE METABOLIC PANEL Routine 11/14/2024 8:30 AM EDT Essential (primary) hypertension Hyperlipidemia, unspecified Unspecified osteoarthritis, unspecified site Encounter for other orthopedic aftercare COMPLETE BLOOD COUNT Routine 11/14/2024 8:30 AM EDT Essential (primary) hypertension Hyperlipidemia, unspecified Unspecified osteoarthritis, unspecified site Encounter for other orthopedic aftercare C-REACTIVE PROTEIN Routine 11/14/2024 8: 30 AM EDT Essential (primary) hypertension Hyperlipidemia, unspecified Unspecified osteoarthritis, unspecified site Encounter for other orthopedic aftercare COMPREHENSIVE METABOLIC PANEL Routine 11/10/2024 6:40 AM [...] Maintenance Results * (ABNORMAL) Complete blood count (11/14/2024 8:30 AM EDT) Only the most recent of8 resultswithin the time period is included. WBC 4.3(L) 4.8 - 10.8 K/mcL LAB HEMETOLOGY METHOD 11/14/2024 10:44 AM [facility] RBC 4.00 3.80 - 4.80 M/mcL LAB HEMETOLOGY METHOD 11/14/2024 10:44 AM [facility] Hemoglobin 12.4 11.5 - 16.0 g/dL LAB HEMETOLOGY METHOD 11/14/2024 10:44 AM [facility] Hematocrit 38.6 35.0 - 47.0 % LAB HEMETOLOGY METHOD 11/14/2024 10:44 AM [facility] MCV 97.5 79.0 - 98.0 FL LAB HEMETOLOGY METHOD 11/14/2024 10:44 AM [facility] MCH 31.3 27.0 - 32.0 pcg LAB HEMETOLOGY METHOD 11/14/2024 10:44 AM [facility] MCHC 32.1 32.0 - 37.0 g/dL LAB HEMETOLOGY METHOD 11/14/2024 10:44 AM [facility] RDW 13.5 11.0 - 15.0 % LAB HEMETOLOGY METHOD 11/14/2024 10:44 AM [facility] Platelets 237 130 - 400 K/mcL LAB HEMETOLOGY METHOD 11/14/2024 10:44 AM [facility] MPV 10.6 7.0 - 11.0 FL LAB HEMETOLOGY METHOD 11/14/2024 10:44 AM [facility] NRBC 0.0 <1.0 % LAB HEMETOLOGY METHOD 11/14/2024 10:44 AM EDT [facility] NRBC Absolute 0.00 <0.10 K/mcL LAB HEMETOLOGY METHOD 11/14/2024 10:44 AM EDT [facility] Blood Venous blood specimen / Unknown Venipuncture / Unknown 11/14/2024 8:30 AM EDT 11/14/2024 9:57 AM EDT Giovanni Coffey MD LAB BLOOD ORDERABLES Final Resul t Performing Organization Address City/[facility]/ZIP Co de Phone Number [facility] [address] [place] [address], [place] [phone] * C-reactive protein (11/14/2024 8:30 AM EDT) Only the most recent of5 resultswithin the time period is included. C-Reactive Protein 0.47 <=0.50 mg/dL LAB CHEMISTRY METHOD 11/14/2024 11:17 AM EDT [facility] Blood Venous blood specimen / Unknown Venipuncture / Unknown 11/14/2024 8:30 AM EDT 11/14/2024 9:57 AM EDT Giovanni Coffey MD LAB BLOOD ORDERABLES Final Resul t Performing Organization Address City/[facility]/ZIP Co de Phone Number [facility] [address] [place] [address], [place] [phone] * (ABNORMAL) Comprehensive metabolic panel (11/14/2024 8:30 AM EDT) Only the most recent of8 resultswithin the time period is included. Sodium 134 133 - 145 mmol/L LAB CHEMISTRY METHOD 11/14/2024 11:15 AM EDT [facility] Potassium 4.0 3.5 - 5.5 mmol/L LAB CHEMISTRY METHOD 11/14/2024 11:15 AM [facility] Chloride 99 96 - 110 mmol/L LAB CHEMISTRY METHOD 11/14/2024 11:15 AM [facility] CO2 30 21 - 32 mmol/L LAB CHEMISTRY METHOD 11/14/2024 11:15 AM [facility] Anion Gap 5 3 - 11 LAB CHEMISTRY METHOD 11/14/2024 11:15 AM [facility] Glucose 137(H) 70 - 100 mg/dL LAB CHEMISTRY METHOD 11/14/2024 11:15 AM [facility] BUN 15 5 - 25 mg/dL LAB CHEMISTRY METHOD 11/14/2024 11:15 AM [facility] Creatinine 0.69 0.50 - 1.10 mg/dL LAB CHEMISTRY METHOD 11/14/2024 11:15 AM [facility] eGFR 88 >=60 mL/min/1. 73m2 LAB CHEMISTRY METHOD 11/14/2024 11:15 AM [facility] Comment:Calculation based on the??Chronic Kidney Disease Epidemiology Collaboration (CKD-EPI) equation refit??without adjustment for race. BUN/Creatinine Ratio 21.7 LAB CHEMISTRY METHOD 11/14/2024 11:15 AM [facility] Calcium 9.3 8.5 - 10.5 mg/dL LAB CHEMISTRY METHOD 11/14/2024 11:15 AM [facility] AST (SGOT) 21 10 - 42 unit/L LAB CHEMISTRY METHOD 11/14/2024 11:15 AM [facility] ALT (SGPT) 27 10 - 60 unit/L LAB CHEMISTRY METHOD 11/14/2024 11:15 AM [facility] Alkaline Phosphatase 127(H) 42 - 121 unit/L LAB CHEMISTRY METHOD 11/14/2024 11:15 AM [facility] Total Protein 7.3 6.0 - 8.0 g/dL LAB CHEMISTRY METHOD 11/14/2024 11:15 AM [facility] Albumin 3.6 3.2 - 5.0 g/dL LAB CHEMISTRY METHOD 11/14/2024 11:15 AM [facility] Total Bilirubin 0.5 0.0 - 1.4 mg/dL LAB CHEMISTRY METHOD 11/14/2024 11:15 AM T [facility] Blood Venous blood specimen / Unknown Venipuncture / Unknown 11/14/2024 8:30 AM EDT 11/14/2024 9:57 AM EDT us Giovanni Coffey MD LAB BLOOD ORDERABLES Final Resul t [facility] [address] [place] [address], [place] [phone] * (ABNORMAL) Urinalysis with reflex microscopic (11/06/2024 9:28 PM EDT) Specific [place] Urine 1.014 1.003 - 1.030 LAB URINALYSIS [...] MD LAB URINE ORDERABLES Final Resul t [facility] [address] [place] [address], [place] [phone] * (ABNORMAL) Culture urine (11/06/2024 9:28 PM EDT) Culture, Urine >100,000 CFU/mL Escherichia coli(A) DANO 11/09/2024 9:22 AM EDT [facility] Urine [...] MICROBIOLOGY - GENERAL ORDER ERWIN Final Result [facility] [address] [place] [address], [place] [phone] * External Vascular Ultrasound (10/23/2024) Only the most recent of4 resultswithin the time period is included. Anatomical Region Laterality Modality Ultrasound us Provider [facility] CV VASCULAR PROCEDURES F inal Result * Lipid panel with reflex to direct LDL (10/17/2024 8:47 AM EDT) Cholesterol 173 0 - 200 mg/dL LAB CHEMISTRY METHOD 10/17/2024 11:42 AM EDT [facility] Triglycerides 101 0 - 150 mg/dL LAB CHEMISTRY METHOD 10/17/2024 11:42 AM EDT [facility] HDL 55 >=40 mg/dL LAB CHEMISTRY METHOD 10/17/2024 11:42 AM EDT [facility] LDL Calculated 98 0 - 100 mg/dL LAB CHEMISTRY METHOD 10/17/2024 11:42 AM EDT [facility] VLDL Cholesterol Waldemar 20.2 mg/dL LAB CHEMISTRY METHOD 10/17/2024 11:42 AM EDT [facility] Non HDL Chol. (LDL+VLDL) 118 <145 mg/dL LAB CHEMISTRY METHOD 10/17/2024 11:42 AM EDT [facility] Chol/HDL Ratio 3.1 0.0 - 4.4 LAB CHEMISTRY METHOD 10/17/2024 11:42 AM EDT [facility] Blood Venous blood specimen / Unknown Venipuncture / Unknown 10/17/2024 8:47 AM EDT 10/17/2024 10:31 AM EDT Giovanni Coffey MD LAB BLOOD ORDERABLES Final Resul t [facility] [address] [place] [address], * External Xray Report (10/13/2024) Only the [...] IMPRESSION: ?? Osteoporosis by WHO criteria. [facility] Department of Internal Medicine recommends using [...] schedule based on may Amaya., [facility] August 24, 2011 for patients [...] IMPRESSION: IMPRESSION: Osteoporosis by WHO criteria. [facility] Department of Internal Medicine recommendsusing National [...] alternative screening schedule based on may Amaya., NEJJanuary 2011 for patients with osteopenia (based on [...] [place] - [place] MEDICARE ADVANTAGE MEDICARE [facility] Care Teams Head Correction Officer Relationship Specialty Start Date End Date Carlita Villegas MD [address] [place] [address] PCP - General 08/25/22
--- OUTSIDE RECORDS SUMMARY | 2024-11-14 12:09 | XMS_ITS | Encounter Summary ---
Author Organization [facility] Address [address] [place] [address] Care Team Providers Care Robotype Operator Name Role Phone Carlita Villegas MD Primary Care Provider [phone] Encounter Details Date Type Department Care Team (Late Contact Info) Description 11/09/2024 Lab Requisition [facility] - Main Lab [address] [facility] [place] [address] Giovanni Coffey MD [address] [place] [address], [phone] Essential (primary) hypertension; Hyperlipidemia, unspecified Social [...] 10:00 AM EST Office Visit Endocrinology - [place] [address] [place] [address] Gisell Villegas PA [address] [place] [address] 08/26/2025 10:00 AM EST Office Visit Vascular Surgery - [place] [address] [place] [address] Priya Lopez MD [facility] [address] [place] [address] documented as of this encounter Procedures Procedure [...] mmol/L LAB CHEMISTRY METHOD 11/10/2024 1:09 PM [facility] Potassium 4.1 3.5 - 5.5 mmol/L LAB CHEMISTRY METHOD 11/10/2024 1:09 PM [facility] Chloride 103 96 - 110 mmol/L LAB CHEMISTRY METHOD 11/10/2024 1:09 PM [facility] CO2 27 21 - 32 mmol/L LAB CHEMISTRY METHOD 11/10/2024 1:09 PM [facility] Anion Gap 7 3 - 11 LAB CHEMISTRY METHOD 11/10/2024 1:09 PM [facility] Glucose 86 70 - 100 mg/dL LAB CHEMISTRY METHOD 11/10/2024 1:09 PM [facility] BUN 13 5 - 25 mg/dL LAB CHEMISTRY METHOD 11/10/2024 1:09 PM [facility] Creatinine 0.66 0.50 - 1.10 mg/dL LAB CHEMISTRY METHOD 11/10/2024 1:09 PM [facility] eGFR 89 >=60 mL/min/1. 73m2 LAB CHEMISTRY METHOD 11/10/2024 1:09 PM EDT [facility] Comment:Calculation based on the??Chronic Kidney Disease Epidemiology Collaboration (CKD-EPI) equation refit??without adjustment for race. BUN/Creatinine Ratio 19.7 LAB CHEMISTRY METHOD 11/10/2024 1:09 PM [facility] Calcium 9.0 8.5 - 10.5 mg/dL LAB CHEMISTRY METHOD 11/10/2024 1:09 PM [facility] AST (SGOT) 17 10 - 42 unit/L LAB CHEMISTRY METHOD 11/10/2024 1:09 PM [facility] ALT (SGPT) 27 10 - 60 unit/L LAB CHEMISTRY METHOD 11/10/2024 1:09 PM [facility] Alkaline Phosphatase 140(H) 42 - 121 unit/L LAB CHEMISTRY METHOD 11/10/2024 1:09 PM [facility] Total Protein 6.7 6.0 - 8.0 g/dL LAB CHEMISTRY METHOD 11/10/2024 1:09 PM [facility] Albumin 3.3 3.2 - 5.0 g/dL LAB CHEMISTRY METHOD 11/10/2024 1:09 PM [facility] Total Bilirubin 0.4 0.0 - 1.4 mg/dL LAB CHEMISTRY METHOD 11/10/2024 1:09 PM [facility] Blood Venous blood specimen / Unknown Venipuncture / Unknown 11/10/2024 6:40 AM EDT 11/10/2024 11:16 AM EDT us Giovanni Coffey MD LAB BLOOD ORDERABLES Final Resul t [facility] [address] [place] [address], [place] [phone] * (ABNORMAL) Complete blood count (11/10/2024 6:40 AM EDT) WBC 3.7(L) 4.8 - 10.8 K/mcL LAB HEMETOLOGY METHOD 11/10/2024 11:50 AM [facility] RBC 3.70(L) 3.80 - 4.80 M/mcL LAB HEMETOLOGY METHOD 11/10/2024 11:50 AM [facility] Hemoglobin 11.6 11.5 - 16.0 g/dL LAB HEMETOLOGY METHOD 11/10/2024 11:50 AM [facility] Hematocrit 36.4 35.0 - 47.0 % LAB HEMETOLOGY METHOD 11/10/2024 11:50 AM [facility] MCV 98.4(H) 79.0 - 98.0 FL LAB HEMETOLOGY METHOD 11/10/2024 11:50 AM [facility] MCH 31.4 27.0 - 32.0 pcg LAB HEMETOLOGY METHOD 11/10/2024 11:50 AM [facility] MCHC 31.9(L) 32.0 - 37.0 g/dL LAB HEMETOLOGY METHOD 11/10/2024 11:50 AM [facility] RDW 13.2 11.0 - 15.0 % LAB HEMETOLOGY METHOD 11/10/2024 11:50 AM [facility] Platelets 210 130 - 400 K/mcL LAB HEMETOLOGY METHOD 11/10/2024 11:50 AM [facility] MPV 10.7 7.0 - 11.0 FL LAB HEMETOLOGY METHOD 11/10/2024 11:50 AM [facility] NRBC 0.0 <1.0 % LAB HEMETOLOGY METHOD 11/10/2024 11:50 AM [facility] NRBC Absolute 0.00 <0.10 K/mcL LAB HEMETOLOGY METHOD 11/10/2024 11:50 AM [facility] Blood Venous blood specimen / Unknown Venipuncture / Unknown 11/10/2024 6:40 AM EDT 11/10/2024 11:16 AM EDT us Giovanni Coffey MD LAB BLOOD ORDERABLES Final Resul t [facility] [address] [place] [address], documented in this encounter Visit Diagnoses Diagnosis Essential (primary) hypertension Unspecified essential hypertension Hyperlipidemia, unspecified documented in this encounter Care Teams Robotype Operator Relationship Specialty Start Date End Date Carlita Villegas MD [address] [place] [id number] PCP - General 08/25/22 documented as of this encounter
--- OUTSIDE RECORDS SUMMARY | 2024-11-14 12:09 | XMS_ITS | Encounter Summary ---
Author Organization [facility] Address [address] [place] [address] Care Team Providers Care Pantograph Transferrer Name Role Phone Carlita Villegas MD Primary Care Provider [phone] Encounter Details Date Type Department Care Team (Late Contact Info) Description 11/07/2024 Lab Requisition [facility] - Main Lab 299 [facility] [place] [address] Giovanni Coffey MD [address] [place] [address], [phone] Essential (primary) hypertension Social History Tobacco [...] 10:00 AM EST Office Visit Endocrinology - [place] [address] [place] [address] Gisell Villegas PA [address] [place] [address] 08/26/2025 10:00 AM EST Office Visit Vascular Surgery - [place] [address] [place] [phone] Priya Lopez MD [address] [place] [address] documented as of this encounter Procedures Procedure Name Priority Date/Time Associated Diagnosis Comments URINALYSIS WITH REFLEX MICROSCOPIC Routine 11/06/2024 9:28 PM EDT Essential (primary) hypertension URINALYSIS WITH REFLEX MICROSCOPIC Routine 11/06/2024 9:28 PM EDT Essential (primary) hypertension CULTURE URINE Routine 11/06/2024 9:28 PM EDT Essential (primary) hypertension documented in this encounter Results * (ABNORMAL) Urinalysis with reflex microscopic (11/06/2024 9:28 PM EDT) Specific [place] Urine 1.014 1.003 - 1.030 LAB URINALYSIS [...] 11/07/2024 11:[address] [facility] RBC, Urine 7.7(H) 0 - 4 /HPF LAB URINALYSIS - AUTOMATED METHOD 11/07/2024 11:[address] [facility] WBC, Urine 357.6(H) 0 - 4 /HPF LAB URINALYSIS - AUTOMATED METHOD 11/07/2024 11:[address] [facility] Squamous Epithelial, Urine 12 0 - 60 /LPF LAB URINALYSIS - AUTOMATED METHOD 11/07/2024 11:[address] [facility] Bacteria, Urine Many(A) Negative /HPF LAB URINALYSIS - AUTOMATED METHOD 11/07/2024 11:[address] [facility] Hyaline Casts, Urine 0.4 0 - 3 /LPF LAB URINALYSIS - AUTOMATED METHOD 11/07/2024 11:[address] [facility] Urine Urine specimen from urethra / Unknown Non-blood Collection / Unknown 11/06/2024 9:28 PM EDT 11/07/2024 10:51 AM EDT us Giovanni Coffey MD LAB URINE ORDERABLES Final Resul t [facility] [address] [place] [address], * (ABNORMAL) Culture urine (11/06/2024 9:28 PM EDT) Culture, Urine >100,000 CFU/mL Escherichia coli(A) DANO 11/09/2024 9:22 AM EDT [facility] Urine Urine specimen from [...] MICROBIOLOGY - GENERAL ORDER ERWIN Final Result [facility] [address] [place] [address], documented in this encounter Visit Diagnoses Diagnosis Essential (primary) hypertension Unspecified essential hypertension documented in this encounter Care Teams Pantograph Transferrer Relationship Specialty Start Date End Date Carlita Villegas MD [address] [place] [address] PCP - General 08/25/22 documented as of this encounter
--- OUTSIDE RECORDS SUMMARY | 2024-11-14 12:09 | XMS_ITS | Encounter Summary ---
Author Organization [facility] Address [address] [place] [address] Care Team Providers Care Cutter Brake Lining Name Role Phone Carlita Villegas MD Primary Care Provider [phone] Encounter Details Date Type Department Care Team (Late st Contact Info) Description 10/23/2024 Lab Requisition [facility] - Main Lab 299 [facility] [address] Giovanni Coffey MD [address] [place] [address], [phone] Essential (primary) hypertension; Hyperlipidemia, unspecified; Unspecified [...] 10:00 AM EST Office Visit Endocrinology - [place] [address] [place], [place] [phone] Gisell Villegas PA [address] [place], [place] 08/26/2025 10:00 AM EST Office Visit Vascular Surgery - [place] [address] [phone] Priya Lopez MD [phone] documented as of this encounter Procedures Procedure [...] mmol/L LAB CHEMISTRY METHOD 10/24/2024 11:18 AM [facility] Potassium 4.6 3.5 - 5.5 mmol/L LAB CHEMISTRY METHOD 10/24/2024 11:18 AM [facility] Chloride 106 96 - 110 mmol/L LAB CHEMISTRY METHOD 10/24/2024 11:18 AM [facility] CO2 28 21 - 32 mmol/L LAB CHEMISTRY METHOD 10/24/2024 11:18 AM [facility] Anion Gap 5 3 - 11 LAB CHEMISTRY METHOD 10/24/2024 11:18 AM [facility] Glucose 84 70 - 100 mg/dL LAB CHEMISTRY METHOD 10/24/2024 11:18 AM [facility] BUN 19 5 - 25 mg/dL LAB CHEMISTRY METHOD 10/24/2024 11:18 AM [facility] Creatinine 0.72 0.50 - 1.10 mg/dL LAB CHEMISTRY METHOD 10/24/2024 11:18 AM [facility] eGFR 85 >=60 mL/min/1. 73m2 LAB CHEMISTRY METHOD 10/24/2024 11:18 AM [facility] Comment:Calculation based on the??Chronic Kidney Disease Epidemiology Collaboration (CKD-EPI) equation refit??without adjustment for race. BUN/Creatinine Ratio 26.4 LAB CHEMISTRY METHOD 10/24/2024 11:18 AM [facility] Calcium 8.6 8.5 - 10.5 mg/dL LAB CHEMISTRY METHOD 10/24/2024 11:18 AM [facility] AST (SGOT) 62(H) 10 - 42 unit/L LAB CHEMISTRY METHOD 10/24/2024 11:18 AM [facility] ALT (SGPT) 91(H) 10 - 60 unit/L LAB CHEMISTRY METHOD 10/24/2024 11:18 AM [facility] Alkaline Phosphatase 156(H) 42 - 121 unit/L LAB CHEMISTRY METHOD 10/24/2024 11:18 AM [facility] Total Protein 6.4 6.0 - 8.0 g/dL LAB CHEMISTRY METHOD 10/24/2024 11:18 AM [facility] Albumin 2.9(L) 3.2 - 5.0 g/dL LAB CHEMISTRY METHOD 10/24/2024 11:18 AM [facility] Total Bilirubin 0.5 0.0 - 1.4 mg/dL LAB CHEMISTRY METHOD 10/24/2024 11:18 AM [facility] Blood Venous blood specimen / Unknown Venipuncture / Unknown 10/24/2024 5:10 AM EDT 10/24/2024 9:54 AM EDT us Giovanni Coffey MD LAB BLOOD ORDERABLES Final Resul t [facility] [address] [place] [address], * (ABNORMAL) Complete blood count (10/24/2024 5:10 AM EDT) WBC 5.1 4.8 - 10.8 K/mcL LAB HEMETOLOGY METHOD 10/24/2024 10:04 AM EDT [facility] RBC 3.50(L) 3.80 - 4.80 M/mcL LAB HEMETOLOGY METHOD 10/24/2024 10:04 AM EDT [facility] Hemoglobin 10.9(L) 11.5 - 16.0 g/dL LAB HEMETOLOGY METHOD 10/24/2024 10:04 AM T [facility] Hematocrit 34.2(L) 35.0 - 47.0 % LAB HEMETOLOGY METHOD 10/24[facility]24 [facility] MCV 98.6(H) 79.0 - 98.0 FL LAB HEMETOLOGY METHOD 10/24[facility]2024 10[facility] MCH 31.4 27.0 - 32.0 pcg LAB HEMETOLOGY METHOD 10/24/2024 10:04 AM EDT [facility] MCHC 31.9(L) 32.0 - 37.0 g/dL LAB HEMETOLOGY METHOD 10/24/2024 10:04 AM [facility] RDW 13.4 11.0 - 15.0 % LAB HEMETOLOGY METHOD 10/24/2024 10:04 AM [facility] Platelets 253 130 - 400 K/mcL LAB HEMETOLOGY METHOD 10/24/2024 10:04 AM [facility] MPV 10.7 7.0 - 11.0 FL LAB HEMETOLOGY METHOD 10/24/2024 10:04 AM EDT [facility] NRBC 0.0 <1.0 % LAB HEMETOLOGY METHOD 10/24/2024 10:04 AM EDT [facility] NRBC Absolute 0.00 <0.10 K/mcL LAB HEMETOLOGY METHOD 10/24/2024 10:04 AM EDT [facility] Blood Venous blood specimen / Unknown Venipuncture / Unknown 10/24/2024 5:10 AM EDT 10/24/2024 9:54 AM EDT us Giovanni Coffey MD LAB BLOOD ORDERABLES Final Resul t Performing Organization Address City/[facility]/ZIP Co de Phone Number [facility] [address] [place] [address], [place] [phone] * (ABNORMAL) C-reactive protein (10/24/2024 5:10 AM EDT) C-Reactive Protein 1.44(H) <=0.50 mg/dL LAB CHEMISTRY METHOD 10/24/2024 11:18 AM EDT [facility] Blood Venous blood specimen / Unknown Venipuncture / Unknown 10/24/2024 5:10 AM EDT 10/24/2024 9:54 AM EDT us Giovanni Coffey MD LAB BLOOD ORDERABLES Final Resul t Performing Organization Address City/[facility]/ZIP Co de Phone Number [facility] [address] [place] [address], [place] [phone] documented in this encounter Visit Diagnoses Diagnosis Essential (primary) hypertension Unspecified essential hypertension Hyperlipidemia, unspecified Unspecified osteoarthritis, unspecified site Encounter for other orthopedic aftercare documented in this encounter Care Teams Cutter Brake Lining Relationship Specialty Start Date End Date Carlita Villegas MD [address] [place] [id number] PCP - General 08/25/22 documented as of this encounter
--- OUTSIDE RECORDS SUMMARY | 2024-11-14 12:09 | XMS_ITS | Encounter Summary ---
Author Organization [facility] Address [address] [place] [address] Care Team Providers Care Pleater Name Role Phone Carlita Villegas MD Primary Care Provider [phone] Encounter Details Date Type Department Care Team (Late Contact Info) Description 10/27/2024 Lab Requisition [facility] - Main Lab 299 [facility] [place] [address] Giovanni Coffey MD [address] [place] [address], [phone] Essential (primary) hypertension; Hyperlipidemia, unspecified Social [...] 10:00 AM EST Office Visit Endocrinology - [place] [address] [place] [address] Gisell Villegas PA [address] [place] [address] 08/26/2025 10:00 AM EST Office Visit Vascular Surgery - [place] [address] [place] [address] Priya Lopez MD [address] [place] [address] documented as of this encounter Procedures Procedure [...] mmol/L LAB CHEMISTRY METHOD 10/27/2024 12:56 PM [facility] Potassium 4.9 3.5 - 5.5 mmol/L LAB CHEMISTRY METHOD 10/27/2024 12:56 PM [facility] Comment:Hemolysis present Chloride 104 96 - 110 mmol/L LAB CHEMISTRY METHOD 10/27/2024 12:56 PM [facility] CO2 25 21 - 32 mmol/L LAB CHEMISTRY METHOD 10/27/2024 12:56 PM [facility] Anion Gap 8 3 - 11 LAB CHEMISTRY METHOD 10/27/2024 12:56 PM [facility] Glucose 80 70 - 100 mg/dL LAB CHEMISTRY METHOD 10/27/2024 12:56 PM [facility] BUN 18 5 - 25 mg/dL LAB CHEMISTRY METHOD 10/27/2024 12:56 PM [facility] Creatinine 0.69 0.50 - 1.10 mg/dL LAB CHEMISTRY METHOD 10/27/2024 12:56 PM [facility] eGFR 88 >=60 mL/min/1. 73m2 LAB CHEMISTRY METHOD 10/27/2024 12:56 PM EDT [facility] Comment:Calculation based on the??Chronic Kidney Disease Epidemiology Collaboration (CKD-EPI) equation refit??without adjustment for race. BUN/Creatinine Ratio 26.1 LAB CHEMISTRY METHOD 10/27/2024 12:56 PM EDT [facility] Calcium 8.9 8.5 - 10.5 mg/dL LAB CHEMISTRY METHOD 10/27/2024 12:56 PM T [facility] AST (SGOT) 67(H) 10 - 42 unit/L LAB CHEMISTRY METHOD 10/27/2024 12:56 PM [facility] Comment:Hemolysis present ALT (SGPT) 73(H) 10 - 60 unit/L LAB CHEMISTRY METHOD 10/27/2024 12:56 PM [facility] Alkaline Phosphatase 188(H) 42 - 121 unit/L LAB CHEMISTRY METHOD 10/27/2024 12:56 PM [facility] Total Protein 6.9 6.0 - 8.0 g/dL LAB CHEMISTRY METHOD 10/27/2024 12:56 PM [facility] Albumin 3.1(L) 3.2 - 5.0 g/dL LAB CHEMISTRY METHOD 10/27/2024 12:56 PM [facility] Total Bilirubin 0.5 0.0 - 1.4 mg/dL LAB CHEMISTRY METHOD 10/27/2024 12:56 PM T [facility] Blood Venous blood specimen / Unknown Venipuncture / Unknown 10/27/2024 6:25 AM EDT 10/27/2024 10:32 AM EDT us Giovanni Coffey MD LAB BLOOD ORDERABLES Final Resul t [facility] [address] [place] [address], * Complete blood count (10/27/2024 6:25 AM EDT) [facility] WBC 5.0 4.8 - 10.8 K/mcL LAB HEMETOLOGY METHOD 10/27/2024 11:30 AM [facility] RBC 3.80 3.80 - 4.80 M/mcL LAB HEMETOLOGY METHOD 10/27/2024 11:30 AM [facility] Hemoglobin 12.0 11.5 - 16.0 g/dL LAB HEMETOLOGY METHOD 10/27/2024 11:30 AM [facility] Hematocrit 36.9 35.0 - 47.0 % LAB HEMETOLOGY METHOD 10/27/2024 11:30 AM [facility] MCV 97.9 79.0 - 98.0 FL LAB HEMETOLOGY METHOD 10/27/2024 11:30 AM [facility] MCH 31.8 27.0 - 32.0 pcg LAB HEMETOLOGY METHOD 10/27/2024 11:30 AM [facility] MCHC 32.5 32.0 - 37.0 g/dL LAB HEMETOLOGY METHOD 10/27/2024 11:30 AM [facility] RDW 13.3 11.0 - 15.0 % LAB HEMETOLOGY METHOD 10/27/2024 11:30 AM [facility] Platelets 293 130 - 400 K/mcL LAB HEMETOLOGY METHOD 10/27/2024 11:30 AM [facility] MPV 11.0 7.0 - 11.0 FL LAB HEMETOLOGY METHOD 10/27/2024 11:30 AM [facility] NRBC 0.0 <1.0 % LAB HEMETOLOGY METHOD 10/27/2024 11:30 AM [facility] NRBC Absolute 0.00 <0.10 K/mcL LAB HEMETOLOGY METHOD 10/27/2024 11:30 AM EDT [facility] Blood Venous blood specimen / Unknown Venipuncture / Unknown 10/27/2024 6:25 AM EDT 10/27/2024 10:32 AM EDT us Giovanni Coffey MD LAB BLOOD ORDERABLES Final Resul t [facility] [address] [place] [address], documented in this encounter Visit Diagnoses Diagnosis Essential (primary) hypertension Unspecified essential hypertension Hyperlipidemia, unspecified documented in this encounter Care Teams Pleater Relationship Specialty Start Date End Date Carlita Villegas MD [address] [place] [address] PCP - General 08/25/22 documented as of this encounter
--- OUTSIDE RECORDS SUMMARY | 2024-11-14 12:09 | XMS_ITS | Encounter Summary ---
Author Organization [facility] Address [address] [place] [address] Care Team Providers Care Csr Technician Name Role Phone Carlita Villegas MD Primary Care Provider [phone] Encounter Details Date Type Department Care Team (Late Contact Info) Description 10/17/2024 Lab Requisition [facility] - Main Lab 299 [facility] [place] [address] Giovanni Coffey MD [address] [place] [address], [phone] Essential (primary) hypertension; Hyperlipidemia, unspecified Social [...] 10:00 AM EST Office Visit Endocrinology - [place] [address] [place] [address] Gisell Villegas PA [address] [place] [address] 08/26/2025 10:00 AM EST Office Visit Vascular Surgery - [place] [address] [place] [address] Priya Lopez MD [address] [place] [address] documented as of this encounter Procedures Procedure [...] LAB CHEMISTRY METHOD 10/17/2024 11:41 AM EDT [facility] Blood Venous blood specimen / Unknown Venipuncture / Unknown 10/17/2024 8:47 AM EDT 10/17/2024 10:31 AM EDT us Giovanni Coffey MD LAB BLOOD ORDERABLES Final Resul t [facility] [address] [place] [address], * Lipid panel with reflex to direct [...] LAB CHEMISTRY METHOD 10/17/2024 11:42 AM T [facility] Non HDL Chol. (LDL+VLDL) 118 <145 mg/dL LAB CHEMISTRY METHOD 10/17/2024 11:42 AM [facility] Chol/HDL Ratio 3.1 0.0 - 4.4 LAB CHEMISTRY METHOD 10/17/2024 11:42 AM [facility] Blood Venous blood specimen / Unknown Venipuncture / Unknown 10/17/2024 8:47 AM EDT 10/17/2024 10:31 AM EDT us Giovanni Coffey MD LAB BLOOD ORDERABLES Final Resul t [facility] [address] [place] [address], [place] [phone] * (ABNORMAL) Comprehensive metabolic panel (10/17/2024 8:47 AM EDT) Sodium 138 133 - 145 mmol/L LAB CHEMISTRY METHOD 10/17/2024 11:41 AM T [facility] Potassium 3.8 3.5 - 5.5 mmol/L LAB CHEMISTRY METHOD 10/17/2024 11:41 AM [facility] Chloride 105 96 - 110 mmol/L LAB CHEMISTRY METHOD 10/17/2024 11:41 AM [facility] CO2 28 21 - 32 mmol/L LAB CHEMISTRY METHOD 10/17[facility]24 [facility] Anion Gap 5 3 - 11 LAB CHEMISTRY METHOD 10/17/2024 11:41 AM [facility] Glucose 128(H) 70 - 100 mg/dL LAB CHEMISTRY METHOD 10/17/2024 11:41 AM [facility] BUN 16 5 - 25 mg/dL LAB CHEMISTRY METHOD 10/17/2024 11:41 AM [facility] Creatinine 0.65 0.50 - 1.10 mg/dL LAB CHEMISTRY METHOD 10/17/2024 11:41 AM [facility] eGFR 89 >=60 mL/min/1. 73m2 LAB CHEMISTRY METHOD 10/17/2024 11:41 AM [facility] Comment:Calculation based on the??Chronic Kidney Disease Epidemiology Collaboration (CKD-EPI) equation refit??without adjustment for race. BUN/Creatinine Ratio 24.6 LAB CHEMISTRY METHOD 10/17/2024 11:41 AM [facility] Calcium 8.8 8.5 - 10.5 mg/dL LAB CHEMISTRY METHOD 10/17/2024 11:41 AM [facility] AST (SGOT) 65(H) 10 - 42 unit/L LAB CHEMISTRY METHOD 10/17/2024 11:41 AM [facility] ALT (SGPT) 47 10 - 60 unit/L LAB CHEMISTRY METHOD 10/17/2024 11:41 AM [facility] Alkaline Phosphatase 60 42 - 121 unit/L LAB CHEMISTRY METHOD 10/17/2024 11:41 AM [facility] Total Protein 6.2 6.0 - 8.0 g/dL LAB CHEMISTRY METHOD 10/17/2024 11:41 AM [facility] Albumin 2.8(L) 3.2 - 5.0 g/dL LAB CHEMISTRY METHOD 10/17/2024 11:41 AM [facility] Total Bilirubin 0.7 0.0 - 1.4 mg/dL LAB CHEMISTRY METHOD 10/17/2024 11:41 AM EDT [facility] Blood Venous blood specimen / Unknown Venipuncture / Unknown 10/17/2024 8:47 AM EDT 10/17/2024 10:31 AM EDT us Goivanni Coffey MD LAB BLOOD ORDERABLES Final Resul t [facility] [address] [place] [address], [place] [phone] * (ABNORMAL) Complete blood count (10/17/2024 8:47 AM EDT) WBC 5.1 4.8 - 10.8 K/mcL LAB HEMETOLOGY METHOD 10/17/2024 11:13 AM [facility] RBC 3.70(L) 3.80 - 4.80 M/mcL LAB HEMETOLOGY METHOD 10/17[facility]2024 [facility] Hemoglobin 11.8 11.5 - 16.0 g/dL LAB HEMETOLOGY METHOD 10/17/2024 11:13 AM [facility] Hematocrit 35.7 35.0 - 47.0 % LAB HEMETOLOGY METHOD 10/17/2024 11:13 AM [facility] MCV 95.5 79.0 - 98.0 FL LAB HEMETOLOGY METHOD 10/17/2024 11:[facility] MCH 31.6 27.0 - 32.0 pcg LAB HEMETOLOGY METHOD 10/17/2024 11:13 AM [facility] MCHC 33.1 32.0 - 37.0 g/dL LAB HEMETOLOGY METHOD 10/17/2024 11:13 AM [facility] RDW 13.1 11.0 - 15.0 % LAB HEMETOLOGY METHOD 10/17/2024 11:13 AM EDT [facility] Platelets 184 130 - 400 K/mcL LAB HEMETOLOGY METHOD 10/17/2024 11:13 AM EDT [facility] MPV 11.4(H) 7.0 - 11.0 FL LAB HEMETOLOGY METHOD 10/17/2024 11:13 AM EDT [facility] NRBC 0.0 <1.0 % LAB HEMETOLOGY METHOD 10/17/2024 11:13 AM EDT [facility] NRBC Absolute 0.00 <0.10 K/mcL LAB HEMETOLOGY METHOD 10/17/2024 11:13 AM EDT [facility] Blood Venous blood specimen / Unknown Venipuncture / Unknown 10/17/2024 8:47 AM EDT 10/17/2024 10:31 AM EDT us Giovanni Coffey MD LAB BLOOD ORDERABLES Final Resul t [facility] [address] [place] [address], documented in this encounter Visit Diagnoses Diagnosis Essential (primary) hypertension Unspecified essential hypertension Hyperlipidemia, unspecified documented in this encounter Care Teams Csr Technician Relationship Specialty Start Date End Date Carlita Villegas MD [address] [place] [phone] PCP - General 08/25/22 documented as of this encounter
--- OUTSIDE RECORDS SUMMARY | 2024-11-14 12:09 | XMS_ITS | Encounter Summary ---
Author Organization [facility] Address [address] [place] [address] Care Team Providers Care Maintenance Coordinator Name Role Phone Carlita Villegas MD Primary Care Provider [phone] Encounter Details Date Type Department Care Team (Late st Contact Info) Description 11/13/2024 Lab Requisition [facility] - Main Lab 299 [facility] [place] [address] Giovanni Coffey MD [address] [place] [address], [phone] Essential (primary) hypertension; Hyperlipidemia, unspecified; Unspecified [...] 10:00 AM EST Office Visit Endocrinology - [place] [address] [place], [place] [phone] Gisell Villegas PA [address] [place], [place] 08/26/2025 10:00 AM EST Office Visit Vascular Surgery - [place] [address] [place] [address] Priya Lopez MD [address] [place] [address] documented as of this encounter Procedures Procedure Name Priority Date/Time Associated Diagnosis Comments COMPLETE BLOOD COUNT Routine 11/14/2024 8:30 AM EDT Essential (primary) hypertension Hyperlipidemia, unspecified Unspecified osteoarthritis, unspecified site Encounter for other orthopedic aftercare C-REACTIVE PROTEIN Routine 11/14/2024 8: 30 AM EDT Essential (primary) hypertension Hyperlipidemia, unspecified Unspecified osteoarthritis, unspecified site Encounter for other orthopedic aftercare COMPREHENSIVE METABOLIC PANEL Routine 11/14/2024 8:30 AM EDT Essential (primary) hypertension Hyperlipidemia, unspecified Unspecified osteoarthritis, unspecified site Encounter for other orthopedic aftercare documented in this encounter Results * (ABNORMAL) Comprehensive metabolic panel (11/14/2024 8:30 AM EDT) Sodium 134 133 - 145 mmol/L LAB CHEMISTRY METHOD 11/14/2024 11:15 AM [facility] Potassium 4.0 3.5 - 5.5 mmol/L LAB CHEMISTRY METHOD 11/14/2024 11:15 AM [facility] Chloride 99 96 - 110 mmol/L LAB CHEMISTRY METHOD 11/14/2024 11:15 AM [facility] CO2 30 21 - 32 mmol/L LAB CHEMISTRY METHOD 11/14/2024 11:15 AM [facility] Anion Gap 5 3 - 11 LAB CHEMISTRY METHOD 11/14/2024 11:15 AM [facility] Glucose 137(H) 70 - 100 mg/dL LAB CHEMISTRY METHOD 11/14/2024 11:15 AM [facility] BUN 15 5 - 25 mg/dL LAB CHEMISTRY METHOD 11/14/2024 11:15 AM [facility] Creatinine 0.69 0.50 - 1.10 mg/dL LAB CHEMISTRY METHOD 11/14/2024 11:15 AM [facility] eGFR 88 >=60 mL/min/1. 73m2 LAB CHEMISTRY METHOD 11/14/2024 11:15 AM [facility] Comment:Calculation based on the??Chronic Kidney Disease Epidemiology Collaboration (CKD-EPI) equation refit??without adjustment for race. BUN/Creatinine Ratio 21.7 LAB CHEMISTRY METHOD 11/14/2024 11:15 AM [facility] Calcium 9.3 8.5 - 10.5 mg/dL LAB CHEMISTRY METHOD 11/14/2024 11:15 AM [facility] AST (SGOT) 21 10 - 42 unit/L LAB CHEMISTRY METHOD 11/14/2024 11:15 AM [facility] ALT (SGPT) 27 10 - 60 unit/L LAB CHEMISTRY METHOD 11/14/2024 11:15 AM [facility] Alkaline Phosphatase 127(H) 42 - 121 unit/L LAB CHEMISTRY METHOD 11/14/2024 11:15 AM [facility] Total Protein 7.3 6.0 - 8.0 g/dL LAB CHEMISTRY METHOD 11/14/2024 11:15 AM [facility] Albumin 3.6 3.2 - 5.0 g/dL LAB CHEMISTRY METHOD 11/14/2024 11:15 AM [facility] Total Bilirubin 0.5 0.0 - 1.4 mg/dL LAB CHEMISTRY METHOD 11/14/2024 11:15 AM [facility] Blood Venous blood specimen / Unknown Venipuncture / Unknown 11/14/2024 8:30 AM EDT 11/14/2024 9:57 AM EDT Giovanni Coffey MD LAB BLOOD ORDERABLES Final Resul t [facility] [address] [place] [address], * (ABNORMAL) Complete blood count (11/14/2024 8:30 AM EDT) WBC 4.3(L) 4.8 - 10.8 K/mcL LAB HEMETOLOGY METHOD 11/14/2024 10:44 AM EDT [facility] RBC 4.00 3.80 - 4.80 M/mcL LAB HEMETOLOGY METHOD 11/14/2024 10:44 AM EDT [facility] Hemoglobin 12.4 11.5 - 16.0 g/dL LAB HEMETOLOGY METHOD 11/14/2024 10:44 AM EDT [facility] Hematocrit 38.6 35.0 - 47.0 % LAB HEMETOLOGY METHOD 11/14/2024 10:44 AM EDT [facility] MCV 97.5 79.0 - 98.0 FL LAB HEMETOLOGY METHOD 11/14/2024 10:44 AM EDT [facility] MCH 31.3 27.0 - 32.0 pcg LAB HEMETOLOGY METHOD 11/14/2024 10:44 AM EDT [facility] MCHC 32.1 32.0 - 37.0 g/dL LAB HEMETOLOGY METHOD 11/14/2024 10:44 AM EDT [facility] RDW 13.5 11.0 - 15.0 % LAB HEMETOLOGY METHOD 11/14/2024 10:44 AM EDT [facility] Platelets 237 130 - 400 K/mcL LAB HEMETOLOGY METHOD 11/14/2024 10:44 AM EDT [facility] MPV 10.6 7.0 - 11.0 FL LAB HEMETOLOGY METHOD 11/14/2024 10:44 AM EDT [facility] NRBC 0.0 <1.0 % LAB HEMETOLOGY METHOD 11/14/2024 10:44 AM EDT [facility] NRBC Absolute 0.00 <0.10 K/mcL LAB HEMETOLOGY METHOD 11/14/2024 10:44 AM EDT [facility] Blood Venous blood specimen / Unknown Venipuncture / Unknown 11/14/2024 8:30 AM EDT 11/14/2024 9:57 AM EDT us Giovanni Coffey MD LAB BLOOD ORDERABLES Final Resul t [facility] [address] [place] [address], [place] [phone] * C-reactive protein (11/14/2024 8:30 AM EDT) C-Reactive Protein 0.47 <=0.50 mg/dL LAB CHEMISTRY METHOD 11/14/2024 11:17 AM EDT [facility] Blood Venous blood specimen / Unknown Venipuncture / Unknown 11/14/2024 8:30 AM EDT 11/14/2024 9:57 AM EDT us Giovanni Coffey MD LAB BLOOD ORDERABLES Final Resul t [facility] [address] [place] [address], [place] [phone] documented in this encounter Visit Diagnoses Diagnosis Essential (primary) hypertension Unspecified essential hypertension Hyperlipidemia, unspecified Unspecified osteoarthritis, unspecified site Encounter for other orthopedic aftercare documented in this encounter Care Teams Maintenance Coordinator Relationship Specialty Start Date End Date Carlita Villegas MD [address] [place] [phone] PCP - General 08/25/22 documented as of this encounter
--- OUTSIDE RECORDS SUMMARY | 2024-11-14 12:09 | XMS_ITS | Encounter Summary ---
Author Organization [facility] Address [address] [place] [address] Care Team Providers Care Third Rigger Name Role Phone Carlita Villegas MD Primary Care Provider [phone] Encounter Details Date Type Department Care Team (Late st Contact Info) Description 11/06/2024 Lab Requisition [facility] - Main Lab 299 [facility] [place] [address] Giovanni Coffey MD [address] [place] [address], [phone] Essential (primary) hypertension; Hyperlipidemia, unspecified; Unspecified [...] 10:00 AM EST Office Visit Endocrinology - [place] [address] [place], [place] [phone] Gisell Villegas PA [address] [place], [place] 08/26/2025 10:00 AM EST Office Visit Vascular Surgery - [place] [address] [place] [address] Priya Lopez MD [address] [place] [address] documented as of this encounter Procedures Procedure [...] mmol/L LAB CHEMISTRY METHOD 11/07/2024 11:58 AM [facility] Potassium 4.0 3.5 - 5.5 mmol/L LAB CHEMISTRY METHOD 11/07/2024 11:58 AM [facility] Chloride 105 96 - 110 mmol/L LAB CHEMISTRY METHOD 11/07/2024 11:58 AM [facility] CO2 28 21 - 32 mmol/L LAB CHEMISTRY METHOD 11/07/2024 11:58 AM [facility] Anion Gap 6 3 - 11 LAB CHEMISTRY METHOD 11/07/2024 11:58 AM [facility] Glucose 86 70 - 100 mg/dL LAB CHEMISTRY METHOD 11/07/2024 11:58 AM [facility] BUN 15 5 - 25 mg/dL LAB CHEMISTRY METHOD 11/07/2024 11:58 AM [facility] Creatinine 0.62 0.50 - 1.10 mg/dL LAB CHEMISTRY METHOD 11/07/2024 11:58 AM [facility] eGFR 90 >=60 mL/min/1. 73m2 LAB CHEMISTRY METHOD 11/07/2024 11:58 AM [facility] Comment:Calculation based on the??Chronic Kidney Disease Epidemiology Collaboration (CKD-EPI) equation refit??without adjustment for race. BUN/Creatinine Ratio 24.2 LAB CHEMISTRY METHOD 11/07/2024 11:58 AM [facility] Calcium 9.1 8.5 - 10.5 mg/dL LAB CHEMISTRY METHOD 11/07/2024 11:58 AM [facility] AST (SGOT) 21 10 - 42 unit/L LAB CHEMISTRY METHOD 11/07/2024 11:58 AM [facility] ALT (SGPT) 31 10 - 60 unit/L LAB CHEMISTRY METHOD 11/07/2024 11:58 AM [facility] Alkaline Phosphatase 152(H) 42 - 121 unit/L LAB CHEMISTRY METHOD 11/07/2024 11:58 AM [facility] Total Protein 6.8 6.0 - 8.0 g/dL LAB CHEMISTRY METHOD 11/07/2024 11:58 AM [facility] Albumin 3.3 3.2 - 5.0 g/dL LAB CHEMISTRY METHOD 11/07/2024 11:58 AM [facility] Total Bilirubin 0.5 0.0 - 1.4 mg/dL LAB CHEMISTRY METHOD 11/07/2024 11:58 AM [facility] Blood Venous blood specimen / Unknown Venipuncture / Unknown 11/07/2024 8:03 AM EDT 11/07/2024 10:42 AM EDT us Giovanni Coffey MD LAB BLOOD ORDERABLES Final Resul t [facility] [address] [place] [address], * (ABNORMAL) Complete blood count (11/07/2024 8:03 AM EDT) WBC 4.9 4.8 - 10.8 K/mcL LAB HEMETOLOGY METHOD 11/07/2024 11:17 AM EDT [facility] RBC 3.70(L) 3.80 - 4.80 M/mcL LAB HEMETOLOGY METHOD 11/07/2024 11:17 AM EDT [facility] Hemoglobin 11.5 11.5 - 16.0 g/dL LAB HEMETOLOGY METHOD 11/07/2024 11:17 AM [facility] Hematocrit 35.7 35.0 - 47.0 % LAB HEMETOLOGY METHOD 11/07/2024 11:17 AM EDT [facility] MCV 96.7 79.0 - 98.0 FL LAB HEMETOLOGY METHOD 11/07/2024 11:17 AM EDT [facility] MCH 31.2 27.0 - 32.0 pcg LAB HEMETOLOGY METHOD 11/07/2024 11:17 AM [facility] MCHC 32.2 32.0 - 37.0 g/dL LAB HEMETOLOGY METHOD 11/07/2024 11:17 AM EDT [facility] RDW 13.4 11.0 - 15.0 % LAB HEMETOLOGY METHOD 11/07/2024 11:17 AM EDT [facility] Platelets 222 130 - 400 K/mcL LAB HEMETOLOGY METHOD 11/07/2024 11:17 AM [facility] MPV 10.4 7.0 - 11.0 FL LAB HEMETOLOGY METHOD 11/07/2024 11:17 AM EDT [facility] NRBC 0.0 <1.0 % LAB HEMETOLOGY METHOD 11/07/2024 11:17 AM EDT [facility] NRBC Absolute 0.00 <0.10 K/mcL LAB HEMETOLOGY METHOD 11/07/2024 11:17 AM EDT [facility] Blood Venous blood specimen / Unknown Venipuncture / Unknown 11/07/2024 8:03 AM EDT 11/07/2024 10:40 AM EDT Giovanni Coffey MD LAB BLOOD ORDERABLES Final Resul t Performing Organization Address City/[facility]/ZIP Co de Phone Number [facility] [address] [place] [address], [place] [phone] * (ABNORMAL) C-reactive protein (11/07/2024 8:03 AM EDT) C-Reactive Protein 0.97(H) <=0.50 mg/dL LAB CHEMISTRY METHOD 11/07/2024 11:56 AM EDT [facility] Blood Venous blood specimen / Unknown Venipuncture / Unknown 11/07/2024 8:03 AM EDT 11/07/2024 10:42 AM EDT Giovanni Coffey MD LAB BLOOD ORDERABLES Final Resul t Performing Organization Address City/[facility]/ZIP Co de Phone Number [facility] [address] [place] [address], [place] [phone] documented in this encounter Visit Diagnoses Diagnosis Essential (primary) hypertension Unspecified essential hypertension Hyperlipidemia, unspecified Unspecified osteoarthritis, unspecified site Encounter for other orthopedic aftercare documented in this encounter Care Teams Third Rigger Relationship Specialty Start Date End Date Carlita Villegas MD [address] [place] [phone] PCP - General 08/25/22 documented as of this encounter
--- OUTSIDE RECORDS SUMMARY | 2024-11-14 12:09 | XMS_ITS | Encounter Summary ---
Author Organization [facility] Address [address] [place] [address] Care Team Providers Care Safety Instructor Name Role Phone Carlita Villegas MD Primary Care Provider [phone] Encounter Details Date Type Department Care Team (Late Contact Info) Description 11/01/2024 Lab Requisition [facility] - Main Lab 299 [facility] [place] [address] Giovanni Coffey MD [address] [place] [address], [phone] Essential (primary) hypertension; Hyperlipidemia, unspecified Social [...] 10:00 AM EST Office Visit Endocrinology - [place] [address] [place] [address] Gisell Villegas PA [address] [place] [address] 08/26/2025 10:00 AM EST Office Visit Vascular Surgery - [place] [address] [place] [address] Priya Lopez MD [address] [place] [address] documented as of this encounter Procedures Procedure [...] MD LAB BLOOD ORDERABLES Final Resul t [facility] [address] [place] [address], [place] [phone] * (ABNORMAL) Complete blood count (11/03/2024 5:42 [...] METHOD 11/03/2024 11:18 AM [facility] NRBC 0.0 <1.0 % LAB HEMETOLOGY METHOD 11/03/2024 11:18 AM [facility] NRBC Absolute 0.00 <0.10 K/mcL LAB HEMETOLOGY METHOD 11/03/2024 11:18 AM [facility] Blood Venous blood specimen / Unknown Venipuncture / Unknown 11/03/2024 5:42 AM EDT 11/03/2024 10:29 AM EDT us Giovanni Coffey MD LAB BLOOD ORDERABLES Final Resul t [facility] [address] [place] [address], documented in this encounter Visit Diagnoses Diagnosis Essential (primary) hypertension Unspecified essential hypertension Hyperlipidemia, unspecified documented in this encounter Care Teams Safety Instructor Relationship Specialty Start Date End Date Carlita Villegas MD [address] [place] [phone] PCP - General 08/25/22 documented as of this encounter
== END 2024-11-14 12:11 | disposition home or self-care (01) ==
LOC: HO.HOS 11:08
PROVIDERS: PCP Internal Medicine
DX: S52.90 Unspecified fracture of unspecified forearm (principal); S52.209B Unspecified fracture of shaft of unspecified ulna, initial encounter for open fracture type I or II
CPT/HCPCS: 99024

== ENCOUNTER → 2024-11-14 11:09 | Outpatient (BNV) | payer MEDICARE, SELFPAY | PROVIDERS: Visit Provider Specialist | DX: M25.531 Pain in right wrist (principal) | CPT/HCPCS: 73110 ==

== ENCOUNTER 2024-12-08 08:10 | Outpatient (REF) | payer MEDICARE, SELFPAY ==
--- NOTE | ~2024-12-08 | XR_ITS ---
CLINICAL HISTORY: M25.531 - Pain in right wrist Three views of the right wrist. COMPARISON: XR right wrist dated 11/14/24 at 11:09 EDT XR right wrist dated 10/31/24 at 10:03 EDT FINDINGS: Interval removal of external fixation wire in the distal right ulna. Similar alignment of displaced fracture of the distal right ulnar diaphysis. There is evidence of bone bridging and resorption along the fracture margins. Displaced ulnar styloid process fracture better visualized. Stable anatomic alignment of internally fixated comminuted fracture of the distal right radial metaphysis. Fracture margins are less well visualized with evidence of bone bridging. Decreased radiocarpal joint space. Carpal bones appear intact. Metacarpals and visualized portions of the phalanges appear intact. Osteopenia. IMPRESSION: 1. Stable alignment of healing mildly displaced fracture of the distal right ulnar diaphysis. 2. Stable alignment of internally fixated healing comminuted fracture of the distal right radial metaphysis. This document has been electronically signed by: Carlos Wallace MD on 12/09/2024 15:48:40
--- NOTE | ~2024-12-08 | XR_ITS ---
CLINICAL HISTORY: M25.559 - Pain in unspecified hip Single view of the pelvis. COMPARISON: XR pelvis dated 11/10/24 at 11:14 EDT FINDINGS: Visualized portions of the proximal femur appear intact. Femoral heads are appropriately seated within the acetabulum. Degenerative changes of the partially visualized lower lumbar spine, stable. Irregularity along the right pubic symphysis and medial aspect of the right superior pubic ramus, similar to prior imaging. Visualized portions of the sacrum appear intact. Atherosclerotic vascular calcifications. IMPRESSION: 1. Stable alignment of probable healing fractures involving the right superior pubic ramus and likely pubic symphysis on the right. This document has been electronically signed by: Carlos Wallace MD on 12/09/2024 15:53:19
--- OUTSIDE RECORDS SUMMARY | 2024-12-08 08:24 | XMS_ITS | Encounter Summary ---
Author Organization [facility] Address [address] [place] [address] Care Team Providers Care Ship Construction Teacher Name Role Phone Carlita Villegas MD Primary Care Provider [phone] Encounter Details Date Type Department Care Team (Late Contact Info) Description 10/17/2024 Lab Requisition [facility] - Main Lab 299 [facility] [place] [address] Giovanni Coffey MD [address] [place] [address], [phone] Essential (primary) hypertension; Hyperlipidemia, unspecified Social [...] 10:00 AM EST Office Visit Endocrinology - [place] [address] [place] [address] Gisell Villegas PA [address] [place] [address] 08/26/2025 10:00 AM EST Office Visit Vascular Surgery - [place] [address] [place] [address] Priya Lopez MD [address] [place] [address] documented as of this encounter Procedures Procedure [...] LAB CHEMISTRY METHOD 10/17/2024 11:41 AM EDT [facility] Blood Venous blood specimen / Unknown Venipuncture / Unknown 10/17/2024 8:47 AM EDT 10/17/2024 10:31 AM EDT us Giovanni Coffey MD LAB BLOOD ORDERABLES Final Resul t [facility] [address] [place] [address], * Lipid panel with reflex to direct LDL (10/17/2024 8:47 AM EDT) Cholesterol 173 0 - 200 mg/dL LAB CHEMISTRY METHOD 10/17/2024 11:42 AM EDT [facility] Triglycerides 101 0 - 150 mg/dL LAB CHEMISTRY METHOD 10/17/2024 11:42 AM EDT [facility] HDL 55 >=40 mg/dL LAB CHEMISTRY METHOD 10/17/2024 11:42 AM EDT [facility] LDL Calculated 98 0 - 100 mg/dL LAB CHEMISTRY METHOD 10/17/2024 11:42 AM EDT [facility] VLDL Cholesterol Waldemar 20.2 mg/dL LAB CHEMISTRY METHOD 10/17/2024 11:42 AM T [facility] Non HDL Chol. (LDL+VLDL) 118 <145 mg/dL LAB CHEMISTRY METHOD 10/17/2024 11:42 AM [facility] Chol/HDL Ratio 3.1 0.0 - 4.4 LAB CHEMISTRY METHOD 10/17/2024 11:42 AM [facility] Blood Venous blood specimen / Unknown Venipuncture / Unknown 10/17/2024 8:47 AM EDT 10/17/2024 10:31 AM EDT us Giovanni Coffey MD LAB BLOOD ORDERABLES Final Resul t [facility] [address] [place] [address], [place] [phone] * (ABNORMAL) Comprehensive metabolic panel (10/17/2024 8:47 AM EDT) Sodium 138 133 - 145 mmol/L LAB CHEMISTRY METHOD 10/17/2024 11:41 AM T [facility] Potassium 3.8 3.5 - 5.5 mmol/L LAB CHEMISTRY METHOD 10/17/2024 11:41 AM [facility] Chloride 105 96 - 110 mmol/L LAB CHEMISTRY METHOD 10/17/2024 11:41 AM [facility] CO2 28 21 - 32 mmol/L LAB CHEMISTRY METHOD 10/17[facility]24 [facility] Anion Gap 5 3 - 11 LAB CHEMISTRY METHOD 10/17/2024 11:41 AM [facility] Glucose 128(H) 70 - 100 mg/dL LAB CHEMISTRY METHOD 10/17/2024 11:41 AM [facility] BUN 16 5 - 25 mg/dL LAB CHEMISTRY METHOD 10/17/2024 11:41 AM [facility] Creatinine 0.65 0.50 - 1.10 mg/dL LAB CHEMISTRY METHOD 10/17/2024 11:41 AM [facility] eGFR 89 >=60 mL/min/1. 73m2 LAB CHEMISTRY METHOD 10/17/2024 11:41 AM [facility] Comment:Calculation based on the??Chronic Kidney Disease Epidemiology Collaboration (CKD-EPI) equation refit??without adjustment for race. BUN/Creatinine Ratio 24.6 LAB CHEMISTRY METHOD 10/17/2024 11:41 AM [facility] Calcium 8.8 8.5 - 10.5 mg/dL LAB CHEMISTRY METHOD 10/17/2024 11:41 AM [facility] AST (SGOT) 65(H) 10 - 42 unit/L LAB CHEMISTRY METHOD 10/17/2024 11:41 AM [facility] ALT (SGPT) 47 10 - 60 unit/L LAB CHEMISTRY METHOD 10/17/2024 11:41 AM [facility] Alkaline Phosphatase 60 42 - 121 unit/L LAB CHEMISTRY METHOD 10/17/2024 11:41 AM [facility] Total Protein 6.2 6.0 - 8.0 g/dL LAB CHEMISTRY METHOD 10/17/2024 11:41 AM [facility] Albumin 2.8(L) 3.2 - 5.0 g/dL LAB CHEMISTRY METHOD 10/17/2024 11:41 AM [facility] Total Bilirubin 0.7 0.0 - 1.4 mg/dL LAB CHEMISTRY METHOD 10/17/2024 11:41 AM EDT [facility] Blood Venous blood specimen / Unknown Venipuncture / Unknown 10/17/2024 8:47 AM EDT 10/17/2024 10:31 AM EDT us Giovanni Coffey MD LAB BLOOD ORDERABLES Final Resul t [facility] [address] [place] [address], [place] [phone] * (ABNORMAL) Complete blood count (10/17/2024 8:47 AM EDT) WBC 5.1 4.8 - 10.8 K/mcL LAB HEMETOLOGY METHOD 10/17/2024 11:13 AM [facility] RBC 3.70(L) 3.80 - 4.80 M/mcL LAB HEMETOLOGY METHOD 10/17/2024 11:[facility] Hemoglobin 11.8 11.5 - 16.0 g/dL LAB HEMETOLOGY METHOD 10/17/2024 11:13 AM [facility] Hematocrit 35.7 35.0 - 47.0 % LAB HEMETOLOGY METHOD 10/17/2024 11:13 AM [facility] MCV 95.5 79.0 - 98.0 FL LAB HEMETOLOGY METHOD 10/17/2024 11:13 [facility] MCH 31.6 27.0 - 32.0 pcg LAB HEMETOLOGY METHOD 10/17/2024 11:13 AM [facility] MCHC 33.1 32.0 - 37.0 g/dL LAB HEMETOLOGY METHOD 10/17/2024 11:13 AM [facility] RDW 13.1 11.0 - 15.0 % LAB HEMETOLOGY METHOD 10/17/2024 11:13 AM EDT [facility] Platelets 184 130 - 400 K/mcL LAB HEMETOLOGY METHOD 10/17/2024 11:13 AM EDT [facility] MPV 11.4(H) 7.0 - 11.0 FL LAB HEMETOLOGY METHOD 10/17/2024 11:13 AM EDT [facility] NRBC 0.0 <1.0 % LAB HEMETOLOGY METHOD 10/17/2024 11:13 AM EDT [facility] NRBC Absolute 0.00 <0.10 K/mcL LAB HEMETOLOGY METHOD 10/17/2024 11:13 AM EDT [facility] Blood Venous blood specimen / Unknown Venipuncture / Unknown 10/17/2024 8:47 AM EDT 10/17/2024 10:31 AM EDT us Giovanni Coffey MD LAB BLOOD ORDERABLES Final Resul t [facility] [address] [place] [address], documented in this encounter Visit Diagnoses Diagnosis Essential (primary) hypertension Unspecified essential hypertension Hyperlipidemia, unspecified documented in this encounter Care Teams Ship Construction Teacher Relationship Specialty Start Date End Date Carlita Villegas MD [address] [place] [address] PCP - General 08/25/22 documented as of this encounter
--- OUTSIDE RECORDS SUMMARY | 2024-12-08 08:24 | XMS_ITS | Encounter Summary ---
Author Organization [facility] Address [address] [place] [address] Care Team Providers Care Plant Taxonomist Name Role Phone Carlita Villegas MD Primary Care Provider [phone] Encounter Details Date Type Department Care Team (Late Contact Info) Description 11/07/[address] [facility] - Main Lab [address] [facility] [place] [address] Giovanni Coffey MD [address] [place] [address], [phone] Essential (primary) hypertension Social History Tobacco [...] 10:00 AM EST Office Visit Endocrinology - [place] [address] [place] [address] Gisell Villegas PA [address] [place] [address] 08/26/2025 10:00 AM EST Office Visit Vascular Surgery - [place] [address] [place] [phone] Priya Lopez MD [address] [place] [address] documented as of this encounter Procedures Procedure Name Priority Date/Time Associated Diagnosis Comments URINALYSIS WITH REFLEX MICROSCOPIC Routine 11/06/2024 9:28 PM EDT Essential (primary) hypertension URINALYSIS WITH REFLEX MICROSCOPIC Routine 11/06/2024 9:28 PM EDT Essential (primary) hypertension CULTURE URINE Routine 11/06/2024 9:28 PM EDT Essential (primary) hypertension documented in this encounter Results * (ABNORMAL) Urinalysis with reflex microscopic (11/06/2024 9:28 PM EDT) Specific [place] Urine 1.014 1.003 - 1.030 LAB URINALYSIS - AUTOMATED METHOD 11/07/2024 11:48 AM [facility] pH, Urine 6.0 5.0 - 8.0 pH LAB URINALYSIS - AUTOMATED METHOD 11/07/2024 11:48 AM [facility] Leukocytes, Urine Large(A) Negative LAB URINALYSIS - AUTOMATED METHOD 11/07/2024 11:48 AM [facility] Nitrite, Urine Positive(A) Negative LAB URINALYSIS - AUTOMATED METHOD 11/07/2024 11:48 AM [facility] Protein, Urine 30(A) <=Trace mg/dL LAB URINALYSIS - AUTOMATED METHOD 11/07/2024 11:48 AM [facility] Glucose, Urine Negative Negative mg/dL LAB URINALYSIS - AUTOMATED METHOD 11/07/2024 11:48 AM [facility] Ketones, Urine Negative Negative mg/dL LAB URINALYSIS - AUTOMATED METHOD 11/07/2024 11:48 AM [facility] Urobilinogen , Urine 0.2 0.2 - 1.0 mg/dL LAB URINALYSIS - AUTOMATED METHOD 11/07/2024 11:48 AM [facility] Bilirubin, Urine Negative Negative LAB URINALYSIS - AUTOMATED METHOD 11/07/2024 11:48 AM [facility] Blood, Urine Large(A) Negative LAB URINALYSIS - AUTOMATED METHOD 11/07/2024 11:48 AM [facility] RBC, Urine 7.7(H) 0 - 4 /HPF LAB URINALYSIS - AUTOMATED METHOD 11/07/2024 11:48 AM [facility] WBC, Urine 357.6(H) 0 - 4 /HPF LAB URINALYSIS - AUTOMATED METHOD 11/07/2024 11:48 AM [facility] Squamous Epithelial, Urine 12 0 - 60 /LPF LAB URINALYSIS - AUTOMATED METHOD 11/07/2024 11:48 AM [facility] Bacteria, Urine Many(A) Negative /HPF LAB URINALYSIS - AUTOMATED METHOD 11/07/2024 11:48 AM [facility] Hyaline Casts, Urine 0.4 0 - 3 /LPF LAB URINALYSIS - AUTOMATED METHOD 11/07/2024 11:48 AM [facility] Urine Urine specimen from urethra / Unknown Non-blood Collection / Unknown 11/06/2024 9:28 PM EDT 11/07/2024 10:51 AM EDT us Giovanni Coffey MD LAB URINE ORDERABLES Final Resul t [facility] [address] [place] [address], * (ABNORMAL) Culture urine (11/06/2024 9:28 PM [...] Result [facility] [address] [place] [address], documented in this encounter Visit Diagnoses Diagnosis Essential (primary) hypertension Unspecified essential hypertension documented in this encounter Care Teams Plant Taxonomist Relationship Specialty Start Date End Date Carlita Villegas MD [address] [place] [id number] PCP - General 08/25/22 documented as of this encounter
--- OUTSIDE RECORDS SUMMARY | 2024-12-08 08:24 | XMS_ITS | Encounter Summary ---
Author Organization [facility] Address [address] [place] [address] Care Team Providers Care Seo Expert Name Role Phone Carlita Villegas MD Primary Care Provider [phone] Encounter Details Date Type Department Care Team (Late Contact Info) Description 12/05/2024 Lab Requisition [facility] - Main Lab [address] [facility] [place] [address] Social History Tobacco Use Types Packs/Day Years [...] 10:00 AM EST Office Visit Endocrinology - [place] [address] [place], [place] [phone] Gisell Villegas PA [address] [place], [place] 08/26/2025 10:00 AM EST Office Visit Vascular Surgery - [place] [address] [facility] [address] [place] [phone] Priya Lopez MD [address] [facility] [address] [place] [address] documented as of this encounter Visit Diagnoses Not on filedocumented in this encounter Care Teams Seo Expert Relationship Specialty Start Date End Date Carlita Villegas MD [address] [place] [phone] PCP - General 08/25/22 documented as of this encounter
--- OUTSIDE RECORDS SUMMARY | 2024-12-08 08:24 | XMS_ITS | Encounter Summary ---
Author Organization [facility] Address [address] [place] [address] Care Team Providers Care Mechanical Design Engineer Facilities Name Role Phone Carlita Villegas MD Primary Care Provider [phone] Encounter Details Date Type Department Care Team (Late st Contact Info) Description 11/06/2024 Lab Requisition [facility] - Main Lab [address] [facility] [place] [address] Giovanni Coffey MD [address] [place] [address], [phone] Essential (primary) hypertension; Hyperlipidemia, unspecified; Unspecified [...] 10:00 AM EST Office Visit Endocrinology - [place] [address] [place], [place] [phone] Gisell Villegas PA [address] [place], [place] 08/26/2025 10:00 AM EST Office Visit Vascular Surgery - [place] [address] [place] [address] Priya Lopez MD [address] [place] [address] documented as of this encounter Procedures Procedure [...] mmol/L LAB CHEMISTRY METHOD 11/07/2024 11:58 AM [facility] Potassium 4.0 3.5 - 5.5 mmol/L LAB CHEMISTRY METHOD 11/07/2024 11:58 AM [facility] Chloride 105 96 - 110 mmol/L LAB CHEMISTRY METHOD 11/07/2024 11:58 AM [facility] CO2 28 21 - 32 mmol/L LAB CHEMISTRY METHOD 11/07/2024 11:58 AM [facility] Anion Gap 6 3 - 11 LAB CHEMISTRY METHOD 11/07/2024 11:58 AM [facility] Glucose 86 70 - 100 mg/dL LAB CHEMISTRY METHOD 11/07/2024 11:58 AM [facility] BUN 15 5 - 25 mg/dL LAB CHEMISTRY METHOD 11/07/2024 11:58 AM [facility] Creatinine 0.62 0.50 - 1.10 mg/dL LAB CHEMISTRY METHOD 11/07/2024 11:58 AM [facility] eGFR 90 >=60 mL/min/1. 73m2 LAB CHEMISTRY METHOD 11/07/2024 11:58 AM [facility] Comment:Calculation based on the??Chronic Kidney Disease Epidemiology Collaboration (CKD-EPI) equation refit??without adjustment for race. BUN/Creatinine Ratio 24.2 LAB CHEMISTRY METHOD 11/07/2024 11:58 AM [facility] Calcium 9.1 8.5 - 10.5 mg/dL LAB CHEMISTRY METHOD 11/07/2024 11:58 AM [facility] AST (SGOT) 21 10 - 42 unit/L LAB CHEMISTRY METHOD 11/07/2024 11:58 AM [facility] ALT (SGPT) 31 10 - 60 unit/L LAB CHEMISTRY METHOD 11/07/2024 11:58 AM [facility] Alkaline Phosphatase 152(H) 42 - 121 unit/L LAB CHEMISTRY METHOD 11/07/2024 11:58 AM [facility] Total Protein 6.8 6.0 - 8.0 g/dL LAB CHEMISTRY METHOD 11/07/2024 11:58 AM [facility] Albumin 3.3 3.2 - 5.0 g/dL LAB CHEMISTRY METHOD 11/07/2024 11:58 AM [facility] Total Bilirubin 0.5 0.0 - 1.4 mg/dL LAB CHEMISTRY METHOD 11/07/2024 11:58 AM [facility] Blood Venous blood specimen / Unknown Venipuncture / Unknown 11/07/2024 8:03 AM EDT 11/07/2024 10:42 AM EDT us Giovanni Coffey MD LAB BLOOD ORDERABLES Final Resul t [facility] [address] [place] [address], * (ABNORMAL) Complete blood count (11/07/2024 8:03 AM EDT) WBC 4.9 4.8 - 10.8 K/mcL LAB HEMETOLOGY METHOD 11/07/2024 11:17 AM EDT [facility] RBC 3.70(L) 3.80 - 4.80 M/mcL LAB HEMETOLOGY METHOD 11/07/2024 11:17 AM EDT [facility] Hemoglobin 11.5 11.5 - 16.0 g/dL LAB HEMETOLOGY METHOD 11/07/2024 11:17 AM [facility] Hematocrit 35.7 35.0 - 47.0 % LAB HEMETOLOGY METHOD 11/07/2024 11:17 AM EDT [facility] MCV 96.7 79.0 - 98.0 FL LAB HEMETOLOGY METHOD 11/07/2024 11:17 AM EDT [facility] MCH 31.2 27.0 - 32.0 pcg LAB HEMETOLOGY METHOD 11/07/2024 11:17 AM [facility] MCHC 32.2 32.0 - 37.0 g/dL LAB HEMETOLOGY METHOD 11/07/2024 11:17 AM EDT [facility] RDW 13.4 11.0 - 15.0 % LAB HEMETOLOGY METHOD 11/07/2024 11:17 AM EDT [facility] Platelets 222 130 - 400 K/mcL LAB HEMETOLOGY METHOD 11/07/2024 11:17 AM [facility] MPV 10.4 7.0 - 11.0 FL LAB HEMETOLOGY METHOD 11/07/2024 11:17 AM EDT [facility] NRBC 0.0 <1.0 % LAB HEMETOLOGY METHOD 11/07/2024 11:17 AM EDT [facility] NRBC Absolute 0.00 <0.10 K/mcL LAB HEMETOLOGY METHOD 11/07/2024 11:17 AM EDT [facility] Blood Venous blood specimen / Unknown Venipuncture / Unknown 11/07/2024 8:03 AM EDT 11/07/2024 10:40 AM EDT Giovanni Coffey MD LAB BLOOD ORDERABLES Final Resul t Performing Organization Address City/[facility]/ZIP Co de Phone Number [facility] [address] [place] [address], [place] [phone] * (ABNORMAL) C-reactive protein (11/07/2024 8:03 AM EDT) C-Reactive Protein 0.97(H) <=0.50 mg/dL LAB CHEMISTRY METHOD 11/07/2024 11:56 AM EDT [facility] Blood Venous blood specimen / Unknown Venipuncture / Unknown 11/07/2024 8:03 AM EDT 11/07/2024 10:42 AM EDT Giovanni Coffey MD LAB BLOOD ORDERABLES Final Resul t Performing Organization Address City/[facility]/ZIP Co de Phone Number [facility] [address] [place] [address], [place] [phone] documented in this encounter Visit Diagnoses Diagnosis Essential (primary) hypertension Unspecified essential hypertension Hyperlipidemia, unspecified Unspecified osteoarthritis, unspecified site Encounter for other orthopedic aftercare documented in this encounter Care Teams Mechanical Design Engineer Facilities Relationship Specialty Start Date End Date Carlita Villegas MD [address] [place] [phone] PCP - General 08/25/22 documented as of this encounter
--- OUTSIDE RECORDS SUMMARY | 2024-12-08 08:24 | XMS_ITS | Data Portability ---
Author Organization [facility], Main Office Address [address] [place] [address] Care Team Providers Care Marketing Project Coordinator Name Role Phone BRENDA GUZMAN - 2ND [...] Organization Details Recorded Time Hypertensiv e disorder 03338824 Active 2024 Estrellita Damico NP [address] [facility], [address], [place], [address], [facility] 5 10:05:42 Open reduction of fracture of radius Active 2024 Estrellita Damico NP [address] [facility], [address], [place], [address], [facility] 5 10:06:12 Fracture of radius 15545384 Active 2024 Estrellita Damico NP [address] [facility], [address], [place], [address], [facility] 5 10:06:50 Closed fracture of pubic ramus Active 2024 Estrellita Damico NP [address], [address], [place], [address], [facility] 5 10:07:14 Hyperlipide desiree 93293983 Active 2024 Estrellita Damico NP [address] [facility], [address], [place], [address], [facility] 5 10:07:30 At high risk for fall 4850377201603 03462 Active 2024 Estrellita Damico NP [address] [facility], [address], [place], [address], [facility] 5 10:07:56 Asthenia 80439789 Active 2024 Estrellita Damico NP [address] [facility], [address], [place], [address], [facility] 5 10:08:03 Osteoporosi s 93517271 Active 2024 Estrellita Damico NP [address], [address], [place], [address], [facility] 5 10:11:58 Problem Notes None recorded. Medical Equipment None Reported. Allergies Allergen ID Allergen Name Allergen Category Reaction Reaction Severity Criticality Documentation Date Start Date Code Code System Note Provider Name and Address Organization Details Recorded Time 30408 azithromy radha medicatio n Not available Not available Not available 10/17/20242010 15099 RxNorm unrec ogniz ed react ion (text : Nause a And Vomit ing, code: 56281 000) [facility] Dominique Boone MD [address] [facility], [address], [place], [address], [facility] 5 18:12:04 57254 doxycycli ne Not available Not available Not available Not available 10/17/20242013 3640 RxNorm unrec ogniz ed react ion (text : Nause a And Vomit ing, code: 43046 000) ([facility] Dominique Boone MD [address] [facility], [address], [place], [address], [facility] 5 18:12:18 08255 Cipro medicatio n nausea Not available unabletoasse 11/21/202426552 3 RxNorm Estrellita Damico NP [address] [place] [address], [address], [place], [address], [facility] 5 20:03:17 95101 ciproflox acin hydrochlo ride medicatio n headache Not available Not available 12/02/20242012 59917 RxNorm unrec ogniz ed react ion (text : Nause a And Vomit ing, code: 90465 000) (from [facility] sourc e) Dominique Boone MD [address] [place] [address], [address], [place], [address], [facility] 5 18:12:10 88947 Substance with sulfonami de structure and antibacte rial mechanism of action (substanc e) medicatio n Not available Not available Not available 12/02/20242005 60803 8003 SNOMED Dominique Boone MD [address] [place] [address], [facility] [address], [place], [address], [facility] 5 18:12:23 83588 sulfameth oxazole medicatio n Not available Not available Not available 12/02/20242024 71591 RxNorm unrec ogniz ed react ion (text : Stoma ch upset , code: 07162 9005) (from [facility] sourc e) Dominique Boone MD [address] [place] [address], [address], [place], [address], [facility] 5 18:12:28 39864 trimethop rim medicatio n Not available Not available Not available 12/02/20242024 05032 RxNorm unrec ogniz ed react ion (text : Stoma ch upset , code: 46833 9005) (from [facility] sourc e) Dominique Boone MD [address] [place] [address], [facility] [address], [place], [address], [facility] [employer] 5 18:12:32 Medications Name Sig Start Date Stop Date Status Note LastModified by Organization Details LastModified Time oxycodone 5 mg tablet Take 1 tablet every 24 hours by oral route as needed, for pain. 025 active Not Available Not Available Not Avai lable Vitals Date Recorded Heart rate Respiratory rate Body temperature Oxygen saturation Oxygen saturation in Arterial blood by Pulse oximetry Systolic blood pressure Diastolic blood pressure Provider Name and Address Organization Details Last Updated DateTime 5 76 /min 18 /min 97.5 [degF] 97 % 97 % 140 mm[Hg] 80 mm[Hg] CRISTIANE MAN NP [address] [facility], [address], [place], [address], [facility] 5 12:06:34 Date Recorded Body weight Heart rate Respiratory rate Body temperature Oxygen saturation Oxygen saturation in Arterial blood by Pulse oximetry Systolic blood pressure Diastolic blood pressure Provider Name and Address Organization Details Last Updated DateTime 5 02448.2 3 g 77 /min 18 /min 98.1 [degF] 98 % 98 % 126 mm[Hg] 74 mm[Hg] Estrellita Damico NP [address] [facility], [facility] [address], [place], [address], [facility] 5 19:48:05 Date Recorded Heart rate Respiratory rate Body temperature Oxygen saturation Oxygen saturation in Arterial blood by Pulse oximetry Systolic blood pressure Diastolic blood pressure Provider Name and Address Organization Details Last Updated DateTime 5 69 /min 18 /min 97.9 [degF] 94 % 94 % 127 mm[Hg] 74 mm[Hg] CRISTIANE MAN NP [address] [facility], [address], [place], [address], [facility] 5 12:50:58 Date Recorded Heart rate Respiratory rate Body temperature Oxygen saturation Oxygen saturation in Arterial blood by Pulse oximetry Systolic blood pressure Diastolic blood pressure Provider Name and Address Organization Details Last Updated DateTime 5 72 /min 18 /min 97.6 [degF] 96 % 96 % 128 mm[Hg] 78 mm[Hg] CRISTIANE MAN NP [address] [facility], [address], [place], [address], [facility] 5 14:31:56 Date Recorded Body height Body mass index (BMI) Body weight Heart rate Respiratory rate Body temperature Oxygen saturation Oxygen saturation in Arterial blood by Pulse oximetry Systolic blood pressure Diastolic blood pressure Provider Name and Address Organization Details Last Updated DateTime 160.02 cm 22 kg/m2 25975.4 5 g 72 /min 18 /min 97.6 [degF] 96 % 96 % 128 mm[Hg] 78 mm[Hg] Dominique Boone MD [address] [facility], [address], [place], [address], [facility] 18:22:39 Social History Question Answer Notes LastModified by Organization Details LastModified Time Tobacco Smoking Status Former Smoker smoked for one yr in her 20s Estrellita Damico NP [address] [facility], [address], [place], [address], [facility] 10/17/2024 10:30:23 Do You Have An Advance Directive? Yes Information not available 12/02/2024 What Is Your Level Of Alcohol Consumption? Occasional Very Occ Information not available 10/17/2024 How Many Times Per Week Do You Consume Alcohol? Less Than 1 Time Per Week Information not available 10/17/2024 What Is Your Code Status? Full Code Information not available 12/02/2024 Where Do You Live? SingleLevelHouse Alone, Laundry In Basement. Information not available 12/02/2024 Legal Guardian? No Informati on not available 10/17/2024 Do You Have A Medical Power Of Staff Development Educator? Yes Not Invoked Information not available 12/02/2024 What Was The Date Of Your Most [...] Has Tobacco Cessation Counseling Been Provided? No N/a As Pt No Longer Smokes Information not available 12/02/2024 Do You Or Have You Ever Used Any Other Forms Of Tobacco Or Nicotine? No Information not available 10/17/2024 Sex: Female Functional Status None recorded. Mental Status None recorded. Family History Nothing Reported Notes:brother: maciej archuleta her 2 strokes mother: healthy father: with jaundice unsure of details Medical History No medical history recorded. Gynecological HistoryNo gynecological history recorded. Obstetrics History GPAL:G 0 P 0 0 0 0 Immunizations Vaccine Type Date Status Note Provider Nam e and Address Organization Details Recorded Time SARS-COV-2 (COVID-19) vaccine, UNSPECIFIED 4 completed [facility] 10/17/2024 14:17:30 SARS-COV-2 (COVID-19) vaccine, UNSPECIFIED 1 completed [facility] 10/17/2024 14:17:52 SARS-COV-2 (COVID-19) vaccine, UNSPECIFIED 1 completed [facility] 10/17/2024 14:17:59 SARS-COV-2 (COVID-19) vaccine, UNSPECIFIED 1 completed [facility] 10/17/2024 14:18:07 SARS-COV-2 (COVID-19) vaccine, UNSPECIFIED 2 completed [facility] 10/17/2024 14:18:14 Td(adult) unspecified formulation 8 completed [facility] 10/17/2024 14:18:32 Pneumococcal conjugate PCV 13 6 completed [facility] 10/17/2024 14:18:45 Pneumococcal conjugate PCV 13 2 completed [facility] 10/17/2024 14:18:53 pneumococcal polysaccharide PPV23 4 completed [facility] 10/17/2024 14:19:12 influenza, unspecified formulation 4 completed [facility] 10/17/2024 14:19:28 influenza, unspecified formulation 4 completed [facility] 10/17/2024 14:19:38 SARS-COV-2 (COVID-19) vaccine, UNSPECIFIED 1 completed [facility] 10/17/2024 14:19:51 SARS-COV-2 (COVID-19) vaccine, UNSPECIFIED 1 completed [facility] 10/17/2024 14:20:01 SARS-COV-2 (COVID-19) vaccine, UNSPECIFIED 1 completed [facility] 10/17/2024 14:20:09 SARS-COV-2 (COVID-19) vaccine, UNSPECIFIED 2 completed [facility] 10/17/2024 14:20:17 zoster, unspecified formulation 3 completed [facility] 10/17/2024 14:24:16 zoster, unspecified formulation [facility] 14:24:26 Past Encounters Encounter ID Performer Location Encounter Start Date Encounter Closed Date Diagnosis/Indication Diagnosis SNOMED-CT Code Diagnosis ICD10 Code Diagnosis Note [id number] Estrellita Damico NP [address] [address] 10/17/2024 09:25:54 10/20/2024 13:52:21 Closed fracture of pubic ramus 6697044951 S32.501D CT pelvis showed right superior pubic ramus and right sacral ala.She is NWB status to right lower extremity with wheelchair transfer'p ain control as belowneeds to fu with ortho in 2 weeks Fracture of radius 03706 007 S52.90XA sp mechanical fall dx with [...] 2 weeks with ortho Hypertensive disorder 38 312748 I10 with hx of htn with elevated bp controlled on losartan 50 mg po qd started in hospitalmo nitor vitals and for need to adjust Osteoporosis 68286315 M8 1.0 hx ofmulivita min qdcal carb bidbiotin qdmonitor Hyperlipidemia 23880035 E78.5 pravastati n 10mg po qdasa qdmonitor Insomnia 896835374 G47.0 0 pt with poor sleep overnight start melatoinin 10 mg po qhsmonitor At high risk for fall 45 12171605 73534720 Z91.89 pt with mechanical fallno assistive devicessup portive carept ot eval and treatmonit or Asthenia 52112069 R53.1 pt pt/ot eval and treatsuppo rtive caremonito r [id number] [facility] [address] 10/21/2024 14:23:49 10/22/2024 12:07:02 Drug-induced constipation 50176423 K59.03 add sennabowel protocolmo nitor for effect Closed fra cture of pubic ramus 0288331900 S32.501D see HPINWB till cleared by orthodiscu ssed with therapyupd ate with concernsmo nitor for pain controlf/u in place Fracture of radius 73921 007 S52.90XA s/p ORIFfollow ortho recs and update with concernsed divya improvedmo nitor for pain control Hypertensive disorder 38 648422 I10 currently onlosartan 50 mg qdmonitor need to titrate if remains elevated Hyperlipidemia 63143156 E78.5 pravastati n 10 mg po qdcontinue d Insomnia 117852854 G47.0 0 melatonin 10 mg po qhsmonitor for effect Asthenia 95600228 R53.1 therapy to followcoor dinate with ortho [id number] CRISTIANE MAN NP [facility] [address] 10/22/2024 10:45:58 10/24/2024 15:39:10 Closed fracture of pubic ramus 1758929973 S32.501D see HPINWB till cleared by orthoPT [...] q mond. x 3 Fracture of radius 41349 007 S52.90XA s/p ORIFNWBSof t cast and sling in place - continueCo ntinue pain meds as aboveMonit or VS, CSM, pain for changesfol low ortho recs and update with concerns Drug-induc ed constipation 30666929 K59.03 Still backed up.Encoura ging use of supp or fleets to get bowels moving ( its right there )D/C senna and colace, change to senna-plus 2 tabs daily, hold for loose stool.Add miralax dailyMaint ain fluidsMoni tor closely and continue to adjust tx. Hypertensive disorder 38 600016 I10 No recent VS - now ordered dailycurre ntly onlosartan 50 mg qdmonitor need to titrate if remains elevated Hyperlipidemia 67918960 E78.5 Continue pravastati n 10 mg po qdSl. elevation in LFTs - is on APAP as wellCMP q mond. x 3 Insomnia 981447573 G47.0 0 On melatonin 10 mg po [...] relaxation and sleep.mikey tor for effect Asthenia 39215178 R53.1 therapy to followcoor dinate with ortho [id number] Estrellita Damico NP [address] [address] 10/24/2024 14:25:11 10/27/2024 15:33:43 Closed fracture of pubic ramus 6441047501 S32.501D see HPINWB to RUE and RLE till cleared by orthoPT OT eval and txcomforta ble at present with pain regimenupd ate Ortho with concerns prnMonitor VS, pain, CSM for change. 10/24 dc ASA to 325 mg bid10/24 started on eliquis 10 mg po bid x 7 days and then 5mg po bid for DVTCBC, CMP q mond. x 3 Fracture of radius 73436 007 S52.90XA s/p ORIFNWB to RUEcontSof t cast and sling in placeConti nue pain meds as aboveMonit or VS, CSM, pain for changesfol low ortho recs and update with concerns prn Hypertensive disorder 38 796337 I10 stablecurr ently onlosartan 50 mg qdmonitor need to titrate if remains elevated Asthenia 67323786 R53.1 therapy to followcoor dinate with ortho Deep venou s thrombosis of lower extremity 972223829 I82.409 10/24 RLE DVTstart eliquis 10 mg po bid x 7days, then 5mgpo bidno s/s of decreased circulatio n to RLEmonitor cms, pain, vitals, bleeding [id number] CRISTIANE MAN NP [facility] [address] 10/30/2024 09:30:35 11/03/2024 11:55:25 Deep venous thrombosis of lower extremity 480800480 I82.409 10/24 RLE DVTstarted eliquis 10 mg po bid x 7days, then 5mg po bidASA stoppedmon itor cms, pain, vitals, bleedingDu e for CBC in am Closed fra cture of pubic ramus 6286250702 S32.501D see HPINWB to RUE and RLE till cleared by orthoPT OT eval and txcomforta ble at present with pain regimenupd ate Ortho with concerns prnMonitor VS, pain, CSM for change.Ort ho follow up Tuesday 10/24 d/c'd ASA due to RLE DVT, now on eliquisCBC , CMP q mond. x 3 Fracture of radius 45212 007 S52.90XA s/p ORIFNWB to RUEcontSof t cast and sling in placeConti nue pain meds as aboveMonit or VS, CSM, pain for changesfol low ortho recs and update with concerns prnOrtho follow up tomorrow. Hypertensive disorder 38 770048 I10 stablecurr ently onlosartan 50 mg qdmonitor need to titrate if remains elevated Asthenia 08638732 R53.1 therapy to followcoor dinate with ortho [id number] Estrellita Damico NP [facility] [address] 11/07/2024 09:32:31 11/17/2024 10:44:35 Deep venous thrombosis of lower extremity 448401787 I82.409 RLE DVTcont eliquis 5mg po bid, completed eliquis 10 mg po bid x 7days started on 10/24ASA stopped, now on eliquismon itor cms, pain, vitals, bleedingmo nitor labs Closed fra cture of pubic ramus 8662757053 S32.501D NWB to RUE and RLE till cleared by orthoPT OT eval and txcomforta ble at present with pain regimenupd ate Ortho with concerns prnMonitor VS, pain, CSM for change.Ort ho follow up Friday 11/10oxycodo ne and tyl sched10/24 d/c'd ASA due to RLE DVT, now on eliquisCBC , CMP q mond. x 3 Fracture of radius 30421 007 S52.90XA s/p ORIFNWB to RUEcontoxy codone and tylenol schedcast in placeConti nue pain meds as aboveMonit or VS, CSM, pain for changesfol low ortho recs and update with concerns prnOrtho follow up on 11/10 for hipnsg to get fu note from 10/31 for further rec Hypertensive disorder 38 373952 I10 stable 116/63curr ently onlosartan 50 mg qdmonitor need to titrate if remains elevated Asthenia 65820100 R53.1 therapy to followcoor dinate with ortho Dysuria 55188244 R30.0 co dysuria with urination and urgency for 1-2 days intermitte ntlyua obtained last nightfu with results [id number] Estrellita Damico NP [facility] [address] [address] 11/10/2024 14:29:31 11/17/2024 11:38:35 Deep venous thrombosis of lower extremity 213913880 I82.409 RLE DVTcont eliquis 5mg po bid, completed eliquis 10 mg po bid x 7days started on 10/24ASA stopped, now on eliquismon itor cms, pain, vitals, bleedingmo nitor labs Closed fra cture of pubic ramus 9027327880 S32.501D NWB to RUE and RLE till cleared by orthoPT OT eval and txcomforta ble at present with pain regimenupd ate Ortho with concerns prnMonitor VS, pain, CSM for change.Ort ho follow up Friday 11/10oxycodo ne and tyl sched10/24 d/c'd ASA due to RLE DVT, now on eliquisCBC , CMP q mon. x 3 Fracture of radius 85630 007 S52.90XA s/p ORIFNWB to RUEcontoxy codone and tylenol schedcast in placeConti nue pain meds as aboveMonit or VS, CSM, pain for changesfol low ortho recs and update with concerns prnOrtho follow up on 11/10 for hipnsg to get fu note from 10/31 for further rec Hypertensive disorder 38 427641 I10 stable 116/63curr ently onlosartan 50 mg qdmonitor need to titrate if remains elevated Asthenia 28656962 R53.1 therapy to followcoor dinate with orthoremai ns RLE MADAN NWB for now Acute urin sapphire tract infection 187241008 N39.0 co dysuria with urination and urgency for 1-2 days intermitte ntlypositi ve for uti sensitive to macrobidpr obiotic addedmonit or for resolution /sequelae [id number] CRISTIANE MAN NP [facility] [address] [place] [address] 11/13/2024 09:17:07 11/17/2024 13:00:29 Acute urinary tract infection 402082332 N39.0 co dysuria and urgency for 1-2 days intermitte ntly last week, UA C&S obtained and pos. for E. Coli UTI, >100KTreat ing with macrobid, to complete todayMaint ain fluids, monitor Deep venou s thrombosis of lower extremity 333167822 I82.409 RLE DVTcont eliquis 5mg po bidASA stopped while on ACmonitor cms, pain, vitals, bleedingmo nitor labsRepeat 3 month US end of January Closed fra cture of pubic ramus 2289226829 S32.501D NWB to RUE and RLE till [...] ASA, new RLE DVT Fracture of radius 07295 007 S52.90XA s/p ORIFNWB to RUEcontoxy codone and tylenol schedcast in placeConti nue pain meds as aboveMonit or VS, CSM, pain for changesfol low ortho recs and update with concerns prnOrtho follow up as sched.nsg to get fu note from 10/31 for further rec Hypertensive disorder 38 296391 I10 VSScurrent ly onlosartan 50 mg qdmonitor need to titrate if remains elevated Asthenia 93134984 R53.1 therapy to followcoor dinate with ortho 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 and daughter req. to start [...] first dose in case of allergic reaction. [id number] Estrellita Damico NP [address] [place] [address] 11/21/2024 13:38:19 11/24/2024 11:40:42 Acute urinary tract infection 112706907 N39.0 co dysuria and urgency without resolution with macrobidUA C&S obtained and pos. for E. Coli UTI, >100K, culture11/04 8 start cefuroxime 250 mg po bid x 7 days11/21 probiotic 1 tab po bid x 9 days11/21 pyridium 100 mg poq 8 hours prn painpt educated on orange discolorat ionMaintai n fluids, monitor Deep venou s thrombosis of lower extremity 460275489 I82.409 RLE DVTconteli spenser 5mg po bidASA stopped while on ACmonitor cms, pain, vitals, bleedingmo nitor labs, swellingRe peat 3 month US end of January Closed fra cture of pubic ramus 3856574754 S32.501D NWB to RUE and RLE till cleared by orthoPT OT eval and txcomforta ble at present with pain regimenoxy codone 5 mg po bid, monitor for need to adjusttyl 1000 mg po tidupdate Ortho with concerns prnMonitor VS, pain, CSM for change.Ort ho follow up as sched.On eliquis for AC instead of ASA, new RLE DVT Fracture of radius 83604 007 S52.90XA s/p ORIFNWB to RUEcontoxy codone and tylenol schedR wrist in splint, cast off, 10 stitches c/d/i to wrist intactMoni tor VS, CSM, pain for changesfol low ortho recs and update with concerns prnOrtho follow up as sched. Postmenopa usal osteoporosis 374364927 M81.0 prolia given today on 11/21, cont q 6 monthsPOC discussed with pt. and daughterCo ntCalcium 600 mg bidVit D3 2000 Units daily Hypertensive disorder 38 238030 I10 bp stablecont losartan 50 mg qdmonitor need to titrate if remains elevated Asthenia 73507359 R53.1 therapy to followcoor dinate with ortho [id number] CRISTIANE MAN NP [facility] [address] [place] [address] 11/25/2024 12:50:16 11/28/2024 12:25:41 Acute urinary tract infection 758456359 N39.0 >100K E. ColiStarte d cefuroxime 250 mg po bid x 7 days on 11/21 as well as prn pyridiumCl inically feeling better.Brunilda ntain fluids, monitor Deep venou s thrombosis of lower extremity 560034321 I82.409 RLE DVTconteli spenser 5mg po bidASA stopped while on ACmonitor cms, pain, vitals, bleedingmo nitor labs, swellingRe peat 3 month US end of January Closed fra cture of pubic ramus 1051650242 S32.501D NWB to RUE and RLE till cleared by orthoPT OT eval and txcomforta ble at present with pain regimenoxy codone 5 mg po bid, ready to taper off, will reduce to 5 mg qd x 5d, then stop.agata nue APAP 1000 mg po tidupdate Ortho with concerns prnMonitor VS, pain, CSM for change.Ort ho follow up as sched.On eliquis for AC instead of ASA, new RLE DVT Fracture of radius 80157 007 S52.90XA s/p ORIFNWB to RUEcont sched. APAP for painready to taper off oxycodone - reduce to 5 mg qd x 5d, then stop.Agata nue wrist splintMoni tor VS, CSM, pain for changesfol low ortho recs and update with concerns prnOrtho follow up as sched. 12/08 Asthenia 00124311 R53.1 therapy to followcoor dinate with ortho Postmenopa usal osteoporosis 205613357 M81.0 prolia given on 11/21, cont q 6 monthsPOC discussed with pt. and daughterCo ntCalcium 600 mg bidVit D3 2000 Units daily Hypertensive disorder 38 883662 I10 bp stablecont losartan 50 mg qdmonitor need to titrate if remains elevated Acute constipation 03281 9006 K59.00 Already on daily miralaxInc rease senna-plus to 2 tabs po bidMaintai n fluids, fiber, activityAd just meds prnShould improved as oxycodone tapered. [id number] CRISTIANE MAN NP [address] [address] 12/02/2024 13:27:01 12/04/2024 03:50:13 Acute urinary tract infection 335265805 N39.0 >100K E. ColiStarte d cefuroxime 250 mg po bid x 7 days on 11/21 as well as prn pyridiumCl inically feeling better, resolved.M aintain fluids, monitor Acute constipation 9006 K59.00 Already on daily miralaxInc reased senna-plus to 2 tabs po bidMaintai n fluids, fiber, activityAd just meds prnShould improved as now off oxycodone. Deep venou s thrombosis of lower extremity 959574714 I82.409 RLE DVTconteli spenser 5mg po bidASA stopped while on ACmonitor cms, pain, vitals, bleedingmo nitor labs, swellingRe peat 3 month US (end of January) Closed fra cture of pubic ramus 6851336009 S32.501D NWB to RUE and RLE till cleared by orthoPT OT eval and txcomforta ble at present with pain regimentap ered off Oxycodonec ontinue APAP 1000 mg po tidupdate Ortho with concerns prnMonitor VS, pain, CSM for change.Ort ho follow up as sched.On eliquis for AC instead of ASA, new RLE DVT Fracture of radius 53166 007 S52.90XA s/p ORIFNWB to RUEcont sched. APAP for painTapere d off oxycodoneC ontinue wrist splintMoni tor VS, CSM, pain for changesfol low ortho recs and update with concerns prnOrtho follow up as sched. 12/08 Asthenia 96460229 R53.1 therapy to followcoor dinate with ortho Postmenopa usal osteoporosis [id number] M81.0 prolia given on 11/21, cont q 6 monthsPOC discussed with pt. and daughterCo ntCalcium 600 mg bidVit D3 2000 Units daily Hypertensive disorder 38 [id number] I10 bp stablecont losartan 50 mg qdmonitor need to titrate if remains elevated COVID-19 [id number] U07.1 New dx. as of today.Sx. mild, some head and throat congestion , mild headache.M onitor VS, sx.OK to add prn robitussin and prn mucinex DM that family providedCo ntinue supportive care, rest, fluidsMoni tor need for additional support (O2, IVF, updrafts, etc.) Health Concerns Section Related Observation LastModified by Organization Detai ls LastModified Time None Recorded Concern Status LastModified by Organization Details LastModified Time None Recorded Advance Directives Directive Y: Payers Encounter Date Sequence Insurance Name Policy Number Policy Celestin Covered Member ID Celestin Member ID Guarantor Name 11/13/2024 1 [place]MEDICARE [place]ACEMENT PPO) [id number] Dayna Ashlyn [id number] Dayna Goldberg 11/21/2024 1 [place] [employer] Dayna Goldberg [id number] Dayna Goldberg 11/25/2024 1 [place] [facility] Dayna Goldberg [id number] Dayna Goldberg 12/02/2024 1 [place] [facility] Dayna Goldberg [id number] Dayna Goldberg Notes Date Note Type Note [...] to increase daily laxatives to help with regularity.Hydroxyzi ne started at HS to help with sleep and anxiety, seems to be working well, no complaints.Appetite very goodPain improved, still with some bilat. [...] HLD, Gait instability CRISTIANE MAN, JESS [address] [facility], [address], [place], [address], [facility] [employer] 11/13/2024 12:46:01 11/21/2024 text/html [facility]. Lianna is an 79 yo f who [facility]. Imaging positive for fx distal right radius/ulna and right pubic ramus and sacral fx. Underwent ORIF RUE, NWB RLE and RUE until cleared by ortho. Dayna had some issues with leg swelling (R>L), constipation, and insomnia.BLE US checked, noted to have DVT in RLE and was started on eliquis and swelling has resolved. Her right wrist forearm healing with cast removed by ortho. She continues with 10 stitches to the right inner wrist. She has a wrist splint. She has also followed for her right pubic ramus fracture and ortho continues to rec NWB to right side. She denies any new pains to her pubic rami area. She continues with burning pain on urination and has been on macrobid for UTI. On repeat culture still shows e coli UTI and changed to cefuroxime for better susceptibility and pyridium ordered for burning also. She was started on prolia for bone health, vit d and calcium onboard aswell. Overall , vitals stable. She is progressing with therapy. Lianna's daughter requests to talk with provider regarding her care and concerns she has not received her prolia. Lianna is alert and oriented and phone conversation with daughter and pt and [employer] had regarding her concerns and all aspects of care discussed and prolia found in the fridge and given by GUIDO today. PMH: HTN, HLD, Gait instability Estrellita Damcio, JESS [address] [facility], [address], [place], [address], [facility] [employer] [facility] 11/21/2024 20:15:07 11/25/2024 text/html Lianna is seen zac pineda for an acute visit. She is an 79 yo f who was admitted to [facility] for rehab after mechanical fall. Imaging positive for fx distal right radius/ulna and right pubic ramus and sacral fx. Underwent ORIF RUE.Had ortho follow up, now in a velcro splint and allowed to hold up to 2 lbs. F/U set for 12/08.Remains of eliquis for RLE DVT.Laxatives added and increased for constipation, but is still reporting problems moving her bowels.Pain improving, ready to start tapering off oxycodone.Currently on cefuroxime for E. Coli UTI, sx. improved.She was started on prolia for bone health, first dose 11/21. [employer] 11/21 stable.Weights reviewed, no recorded weight since October. Last weight low at 127 lbs. PMH: HTN, HLD, Gait instability CRISTIANE MAN NP [address] [facility], [address], [place], [address], [facility] [employer] [facility] 11/26/2024 10:24:24 12/02/2024 text/html Lianna is seen zac pineda for an acute visit. She is an 79 yo f who was admitted to [facility] for rehab after mechanical fall. Imaging positive for fx distal right radius/ulna and right pubic ramus and sacral fx. Underwent ORIF RUE.Had ortho follow up, now in a velcro splint and allowed to hold up to 2 lbs. F/U set for 5/5.Remains of eliquis for RLE DVT.Laxatives added and increased for constipation with improvement in bowels.Pain improving, tapered off oxycodone and doing quite well.Completed cefuroxime for E. Coli UTI, sx. resolved.She was started on prolia for bone health, first dose 11/21, twyla. well. Today she is complaining of not feeling well, stuffy head and throat, mild headache, feeling tired. Checked for covid as other residents positive, finally tested positive today. Daughter and pt. requesting prn cough syrup and mucinex dm, which were added to the MAR. [facility]SSL[employer] 11/28 stable.Weights reviewed, wt. now 124 lbs. PMH: HTN, HLD, Gait instability CRISTIANE MAN NP [address] [place] [address], [address], [place], [address], [facility] [employer] 12/02/2024 14:55:34 OBGyn Episode No OBEpisode recorded.
--- OUTSIDE RECORDS SUMMARY | 2024-12-08 08:24 | XMS_ITS | Encounter Summary ---
Author Organization [facility] Address [address] [place] [address] Care Team Providers Care High Risk Case Manager Name Role Phone Carlita Villegas MD Primary Care Provider [phone] Encounter Details Date Type Department Care Team (Late Contact Info) Description 11/01/2024 Lab Requisition [facility] - Main Lab [address] [facility] [place] [address] Giovanni Coffey MD [address] [place] [address], [phone] Essential (primary) hypertension; Hyperlipidemia, unspecified Social [...] AM EST Office Visit Endocrinology - [place] [address] [place] [address] Gisell Villegas PA [address] [place] [address] 08/26/2025 10:00 AM EST Office Visit Vascular Surgery - [place] [address] [place] [address] Priya Lopez MD [address] [place] [address] documented as of this encounter Procedures Procedure [...] mmol/L LAB CHEMISTRY METHOD 11/03/2024 12:[address] [facility] Potassium 4.2 3.5 - 5.5 mmol/L LAB CHEMISTRY METHOD 11/03/2024 12:[address] [facility] Chloride 105 96 - 110 mmol/L LAB CHEMISTRY METHOD 11/03/2024 12:[address] [facility] CO2 27 21 - 32 mmol/L LAB CHEMISTRY METHOD 11/03/2024 12:[address] [facility] Anion Gap 8 3 - 11 LAB CHEMISTRY METHOD 11/03/2024 12:[address] [facility] Glucose 83 70 - 100 mg/dL LAB CHEMISTRY METHOD 11/03/2024 12:[address] [facility] BUN 14 5 - 25 mg/dL LAB CHEMISTRY METHOD 11/03/2024 12:[address] [facility] Creatinine 0.59 0.50 - 1.10 mg/dL LAB CHEMISTRY METHOD 11/03/2024 12:[address] [facility] eGFR 91 >=60 mL/min/1. 73m2 LAB CHEMISTRY METHOD 11/03/2024 12:[address] [facility] Comment:Calculation based on the??Chronic Kidney Disease Epidemiology Collaboration (CKD-EPI) equation refit??without adjustment for race. BUN/Creatinine Ratio 23.7 LAB CHEMISTRY METHOD 11/03/2024 12:[address] [facility] Calcium 9.3 8.5 - 10.5 mg/dL LAB CHEMISTRY METHOD 11/03/2024 12:[address] [facility] AST (SGOT) 27 10 - 42 unit/L LAB CHEMISTRY METHOD 11/03/2024 12:[address] [facility] ALT (SGPT) 42 10 - 60 unit/L LAB CHEMISTRY METHOD 11/03/2024 12:[address] [facility] Alkaline Phosphatase 171(H) 42 - 121 unit/L LAB CHEMISTRY METHOD 11/03/2024 12:[address] [facility] Total Protein 6.5 6.0 - 8.0 g/dL LAB CHEMISTRY METHOD 11/03/2024 12:[address] [facility] Albumin 3.0(L) 3.2 - 5.0 g/dL LAB CHEMISTRY METHOD 11/03/2024 12:[address] [facility] Total Bilirubin 0.4 0.0 - 1.4 mg/dL LAB CHEMISTRY METHOD 11/03/2024 12:[address] [facility] Blood Venous blood specimen / Unknown Venipuncture / Unknown 11/03/2024 5:42 AM EDT 11/03/2024 10:29 AM EDT us Giovanni Coffey MD LAB BLOOD ORDERABLES Final Resul t [facility] [address] [place] [address], [place] [phone] * (ABNORMAL) Complete blood count (11/03/2024 5:42 AM EDT) WBC 5.5 4.8 - 10.8 K/mcL LAB HEMETOLOGY METHOD 11/03/2024 11:[address] [facility] RBC 3.60(L) 3.80 - 4.80 M/mcL LAB HEMETOLOGY METHOD 11/03/2024 11:[address] [facility] Hemoglobin 11.2(L) 11.5 - 16.0 g/dL LAB HEMETOLOGY METHOD 11/03/2024 11:[address] [facility] Hematocrit 34.7(L) 35.0 - 47.0 % LAB HEMETOLOGY METHOD 11/03/2024 11:[address] [facility] MCV 96.9 79.0 - 98.0 FL LAB HEMETOLOGY METHOD 11/03/2024 11:[address] [facility] MCH 31.3 27.0 - 32.0 pcg LAB HEMETOLOGY METHOD 11/03/2024 11:[address] [facility] MCHC 32.3 32.0 - 37.0 g/dL LAB HEMETOLOGY METHOD 11/03/2024 11:[address] [facility] RDW 13.3 11.0 - 15.0 % LAB HEMETOLOGY METHOD 11/03/2024 11:[address] [facility] Platelets 253 130 - 400 K/mcL LAB HEMETOLOGY METHOD 11/03/2024 11:[address] [facility] MPV 10.4 7.0 - 11.0 FL LAB HEMETOLOGY METHOD 11/03/2024 11:[address] [facility] NRBC 0.0 <1.0 % LAB HEMETOLOGY METHOD 11/03/2024 11:[address] [facility] NRBC Absolute 0.00 <0.10 K/mcL LAB HEMETOLOGY METHOD 11/03/2024 11:[address] [facility] Blood Venous blood specimen / Unknown Venipuncture / Unknown 11/03/2024 5:42 AM EDT 11/03/2024 10:29 AM EDT us Giovanni Coffey MD LAB BLOOD ORDERABLES Final Resul t [facility] [address] [place] [address], documented in this encounter Visit Diagnoses Diagnosis Essential (primary) hypertension Unspecified essential hypertension Hyperlipidemia, unspecified documented in this encounter Care Teams High Risk Case Manager Relationship Specialty Start Date End Date Carlita Villegas MD [address] [place] [phone] PCP - General 08/25/22 documented as of this encounter
--- OUTSIDE RECORDS SUMMARY | 2024-12-08 08:25 | XMS_ITS | Encounter Summary ---
Author Organization [facility] Address [address] [place] [address] Care Team Providers Care Road Boss Name Role Phone Carlita Villegas MD Primary Care Provider [phone] Encounter Details Date Type Department Care Team (Late st Contact Info) Description 10/30/2024 Lab Requisition [facility] - Main Lab [address] [facility] [place] [address] Giovanni Coffey MD [address] [place] [address], [phone] Essential (primary) hypertension; Hyperlipidemia, unspecified; Unspecified [...] 10:00 AM EST Office Visit Endocrinology - [place] [address] [place], [place] [phone] Gisell Villegas PA [address] [place], [place] 08/26/2025 10:00 AM EST Office Visit Vascular Surgery - [place] [address] [place] [address] Priya Lopez MD [address] [place] [address] documented as of this encounter Procedures Procedure [...] mmol/L LAB CHEMISTRY METHOD 10/31/2024 12:31 PM [facility] Potassium 4.3 3.5 - 5.5 mmol/L LAB CHEMISTRY METHOD 10/31/2024 12:31 PM [facility] Chloride 104 96 - 110 mmol/L LAB CHEMISTRY METHOD 10/31/2024 12:31 PM [facility] CO2 30 21 - 32 mmol/L LAB CHEMISTRY METHOD 10/31/2024 12:31 PM [facility] Anion Gap 4 3 - 11 LAB CHEMISTRY METHOD 10/31/2024 12:31 PM [facility] Glucose 122(H) 70 - 100 mg/dL LAB CHEMISTRY METHOD 10/31/2024 12:31 PM [facility] BUN 17 5 - 25 mg/dL LAB CHEMISTRY METHOD 10/31/2024 12:31 PM [facility] Creatinine 0.75 0.50 - 1.10 mg/dL LAB CHEMISTRY METHOD 10/31/2024 12:31 PM [facility] eGFR 81 >=60 mL/min/1. 73m2 LAB CHEMISTRY METHOD 10/31/2024 12:31 PM [facility] Comment:Calculation based on the??Chronic Kidney Disease Epidemiology Collaboration (CKD-EPI) equation refit??without adjustment for race. BUN/Creatinine Ratio 22.7 LAB CHEMISTRY METHOD 10/31/2024 12:31 PM [facility] Calcium 9.2 8.5 - 10.5 mg/dL LAB CHEMISTRY METHOD 10/31/2024 12:31 PM [facility] AST (SGOT) 43(H) 10 - 42 unit/L LAB CHEMISTRY METHOD 10/31/2024 12:31 PM [facility] ALT (SGPT) 60 10 - 60 unit/L LAB CHEMISTRY METHOD 10/31/2024 12:31 PM [facility] Alkaline Phosphatase 193(H) 42 - 121 unit/L LAB CHEMISTRY METHOD 10/31/2024 12:31 PM [facility] Total Protein 6.8 6.0 - 8.0 g/dL LAB CHEMISTRY METHOD 10/31/2024 12:31 PM [facility] Albumin 3.3 3.2 - 5.0 g/dL LAB CHEMISTRY METHOD 10/31/2024 12:31 PM [facility] Total Bilirubin 0.5 0.0 - 1.4 mg/dL LAB CHEMISTRY METHOD 10/31/2024 12:31 PM [facility] Blood Venous blood specimen / Unknown Venipuncture / Unknown 10/31/2024 8:53 AM EDT 10/31/2024 10:21 AM EDT us Giovanni Coffey MD LAB BLOOD ORDERABLES Final Resul t [facility] [address] [place] [address], * (ABNORMAL) Complete blood count (10/31/2024 8:53 AM EDT) WBC 5.0 4.8 - 10.8 K/mcL LAB HEMETOLOGY METHOD 10/31/2024 11:12 AM EDT [facility] RBC 3.70(L) 3.80 - 4.80 [...] LAB HEMETOLOGY METHOD 10/31/2024 11:12 AM EDT [facility] RDW 13.3 11.0 - 15.0 % LAB HEMETOLOGY METHOD 10/31/2024 11:12 AM EDT [facility] Platelets 283 130 - 400 K/mcL LAB HEMETOLOGY METHOD [facility]24 [facility] MPV 10.4 7.0 - 11.0 FL LAB HEMETOLOGY METHOD 10/31/2024 11:12 AM EDT [facility] NRBC 0.0 <1.0 % LAB HEMETOLOGY METHOD 10/31/2024 11:12 AM EDT [facility] NRBC Absolute 0.00 <0.10 K/mcL LAB HEMETOLOGY METHOD 10/31/2024 11:12 AM EDT [facility] Blood Venous blood specimen / Unknown Venipuncture / Unknown 10/31/2024 8:53 AM EDT 10/31/2024 10:21 AM EDT Giovanni Coffey MD LAB BLOOD ORDERABLES Final Resul t Performing Organization Address [facility]/ZIP Co de Phone Number [facility] [address] [place] [address], [place] [phone] * (ABNORMAL) C-reactive protein (10/31/2024 8:53 AM EDT) C-Reactive Protein 1.02(H) <=0.50 mg/dL LAB CHEMISTRY METHOD 10/31/2024 12:33 PM EDT [facility] Blood Venous blood specimen / Unknown Venipuncture / Unknown 10/31/2024 8:53 AM EDT 10/31/2024 10:21 AM EDT Giovanni Coffey MD LAB BLOOD ORDERABLES Final Resul t Performing Organization Address City/[facility]/ZIP Co de Phone Number [facility] [address] [place] [address], [place] [phone] documented in this encounter Visit Diagnoses Diagnosis Essential (primary) hypertension Unspecified essential hypertension Hyperlipidemia, unspecified Unspecified osteoarthritis, unspecified site Encounter for other orthopedic aftercare documented in this encounter Care Teams Road Boss Relationship Specialty Start Date End Date Carlita Villegas MD [address] [place] [id number] PCP - General 1/20/23 documented as of this encounter
--- OUTSIDE RECORDS SUMMARY | 2024-12-08 08:25 | XMS_ITS | Clinical Summary ---
Author Organization [address] [facility] Address [address] [place] [address] Phone Care Team Providers Care Electronic Engraver Name Role Phone Carlita Villegas MD Primary Care Provider [phone] Allergies Active Allergy Reactions Criticality Noted Date [...] Encounters Date Type Department Care Team Description 12/05/2024 Lab Requisition [facility] - Main Lab [address] [facility] [place] [address] 12/04/2024 Lab Requisition [facility] Main Lab [address] [place] [phone] Giovanni Coffey MD Essential (primary) hypertension; Hyperlipidemia, unspecified; Encounter for other orthopedic aftercare; Vitamin D deficiency, unspecified 11/27/2024 Lab Requisition [facility] Lab [address] [place] [address] Giovanni Coffey MD Essential (primary) hypertension; Hyperlipidemia, unspecified; Unspecified osteoarthritis, unspecified site; Encounter for other orthopedic aftercare 11/20/2024 Lab Requisition [facility] Lab [address] [place] [address] Giovanni Coffey MD Essential (primary) hypertension; Hyperlipidemia, unspecified; Unspecified osteoarthritis, unspecified site; Encounter for other orthopedic aftercare 11/19/2024 Lab Requisition [facility] Lab [address] [place] [phone] Giovanni Coffey MD Urinary tract infection, site not specified 11/15/2024 Lab Requisition [facility] Lab [address] [place] [address] Giovanni Coffey MD Essential (primary) hypertension; Hyperlipidemia, unspecified 11/13/2024 Lab Requisition [facility] Lab [address] [place] [address] Giovanni Coffey MD Essential (primary) hypertension; Hyperlipidemia, unspecified; Unspecified osteoarthritis, unspecified site; Encounter for other orthopedic aftercare 11/09/2024 Lab Requisition [facility] Lab [address] [place] [address] Giovanni Coffey MD Essential (primary) hypertension; Hyperlipidemia, unspecified 11/07/2024 Lab Requisition [facility] Lab [address] [place] [address] Giovanni Coffey MD Essential (primary) hypertension 11/06/2024 Lab Requisition [facility] Lab [address] [place] [phone] Giovanni Coffey MD Essential (primary) hypertension; Hyperlipidemia, unspecified; Unspecified osteoarthritis, unspecified site; Encounter for other orthopedic aftercare 11/01/2024 Lab Requisition [facility] Lab [address] [place] [phone] Giovanni Coffey MD Essential (primary) hypertension; Hyperlipidemia, unspecified 10/30/2024 Lab Requisition [facility] Lab [address] [place] [phone] Giovanni Coffey MD Essential (primary) hypertension; Hyperlipidemia, unspecified; Unspecified osteoarthritis, unspecified site; Encounter for other orthopedic aftercare 10/27/2024 Lab Requisition [facility] Lab [address] [place] [phone] Giovanni Coffey MD Essential (primary) hypertension; Hyperlipidemia, unspecified 10/23/2024 Lab Requisition [facility] Lab [address] [place] [phone] Giovanni Coffey MD Essential (primary) hypertension; Hyperlipidemia, unspecified; Unspecified osteoarthritis, unspecified site; Encounter for other orthopedic aftercare 10/17/2024 Lab Requisition [facility] Lab [address] [place] [phone] Giovanni Coffey MD Essential (primary) hypertension; Hyperlipidemia, unspecified 10/17/2024 Telephone Endocrinology [address] [address] Lisandro Cohen [place] prolia info needed 10/14/2024 Telephone Adult Medicine [address] [phone] Carlita Villegas MD from Last 3 Months [...] History Relation Name Comments Breast cancer Aunt zach 50's Diabetes Brother 1 x 3 prostate [...] 10:00 AM EST Office Visit Endocrinology - [place] [address] [place] [address] Gisell Villegas PA [address] [place] [address] 08/26/2025 10:00 AM EST Office Visit Vascular Surgery - [place] [address] [facility] [address] [place] [address] Priya Lopez MD [address] [place] [address] Health Maintenance Due Date Last Done Comments RSV Immunization Adult Patients (1 - 1-dose 75+ series) 2019 Zoster Vaccines (3 of 3) 07/26/2021 05/31/2021, 03/06 Colorectal Cancer Screening: Colonoscopy 07/15/2022 05/08/2017 Depression Screening 07/15/2022 Falls Risk Assessment 07/15/2022 Medicare Annual Wellness Visit 07/15/2022 Social Influencers of Health Screening 07/15/2022 COVID-19 Vaccine (6 - Mixed Product risk season) 2024 05/14/2024, 06/01/2022, 06/06/2021, Additional history exists Hypertension/CHF/CAD Annual BMP Blood Test 12/05/2025 12/05/2024, 11/28/2024, 11/21/2024, Additional history exists DTaP,Tdap,and Td Vaccines (2 - Td or Tdap) 02/15/2028 02/14/2018 Cholesterol Screening (Lipid Panel) 11/17/2029 11/17/2024, 10/17/2024, 06/03/2024, Additional history exists Osteoporosis Screening (Bone Density [...] Procedure Name Priority Date/Time Associated Diagnosis Comments VITAMIN D 25 HYDROXY Routine 12/05/2024 7:00 AM EDT Essential (primary) hypertension Hyperlipidemia, unspecified Encounter for other orthopedic aftercare Vitamin D deficiency, unspecified COMPREHENSIVE METABOLIC PANEL Routine 12/05/2024 7:00 AM EDT Essential (primary) hypertension Hyperlipidemia, unspecified Encounter for other orthopedic aftercare Vitamin D deficiency, unspecified COMPLETE BLOOD COUNT Routine 12/05/2024 7:00 AM EDT Essential (primary) hypertension Hyperlipidemia, unspecified Encounter for other orthopedic aftercare Vitamin D deficiency, unspecified C-REACTIVE PROTEIN Routine 12/05/2024 7: 00 AM EDT Essential (primary) hypertension Hyperlipidemia, unspecified Encounter for other orthopedic aftercare Vitamin D deficiency, unspecified COMPREHENSIVE METABOLIC PANEL Routine 11/28/2024 7:25 AM EDT Essential (primary) hypertension Hyperlipidemia, unspecified Unspecified osteoarthritis, unspecified site Encounter for other orthopedic aftercare COMPLETE BLOOD COUNT Routine 11/28/2024 7:25 AM EDT Essential (primary) hypertension Hyperlipidemia, unspecified Unspecified osteoarthritis, unspecified site Encounter for other orthopedic aftercare C-REACTIVE PROTEIN Routine 11/28/2024 7: 25 AM EDT Essential (primary) hypertension Hyperlipidemia, unspecified Unspecified osteoarthritis, unspecified site Encounter for other orthopedic aftercare COMPREHENSIVE METABOLIC PANEL Routine 11/21/2024 7:13 AM EDT Essential (primary) hypertension Hyperlipidemia, unspecified Unspecified osteoarthritis, unspecified site Encounter for other orthopedic aftercare COMPLETE BLOOD COUNT Routine 11/21/2024 7:13 AM EDT Essential (primary) hypertension Hyperlipidemia, unspecified Unspecified osteoarthritis, unspecified site Encounter for other orthopedic aftercare C-REACTIVE PROTEIN Routine 11/21/2024 7: 13 AM EDT Essential (primary) hypertension Hyperlipidemia, unspecified Unspecified osteoarthritis, unspecified site Encounter for other orthopedic aftercare URINALYSIS WITH REFLEX MICROSCOPIC Routine 11/18/2024 12:00 AM EDT Urinary tract infection, site not specified URINALYSIS WITH REFLEX MICROSCOPIC Routine 11/18/2024 12:00 AM EDT Urinary tract infection, site not specified CULTURE URINE Routine 11/18/2024 12:00 AM EDT Urinary tract infection, site not specified C-REACTIVE PROTEIN Routine 11/17/2024 5: 21 AM EDT Essential (primary) hypertension Hyperlipidemia, unspecified LIPID PANEL WITH REFLEX TO DIRECT LDL Routine 11/17/2024 5:21 AM EDT Essential (primary) hypertension Hyperlipidemia, unspecified COMPREHENSIVE METABOLIC PANEL Routine 11/17/2024 5:21 AM EDT Essential (primary) hypertension Hyperlipidemia, unspecified COMPLETE BLOOD COUNT Routine 11/17/2024 5:21 AM EDT Essential (primary) hypertension Hyperlipidemia, unspecified COMPREHENSIVE METABOLIC PANEL Routine 11/14/2024 8:30 AM [...] Recently Relevant to Health Maintenance Results * Vitamin D 25 hydroxy (12/05/2024 7:00 AM EDT) Vit D, 25-Hydroxy 51.0 30.0 - 80.0 ng/mL LAB CHEMISTRY METHOD 12/05/2024 1:57 PM EDT [facility] Blood Venous blood specimen / Unknown Venipuncture / Unknown 12/05/2024 7:00 AM EDT 12/05/2024 10:24 AM EDT us Giovanni Coffey MD LAB BLOOD ORDERABLES Final Resul t [facility] [address] [place] [address], [place] [phone] * (ABNORMAL) Complete blood count (12/05/2024 7:00 AM EDT) Only the most recent of12 resultswithin the time period is included. WBC 3.4(L) 4.8 - 10.8 K/[facility] LAB HEMETOLOGY METHOD 12/05/2024 11:30 AM EDT [facility] RBC 3.60(L) 3.80 - 4.80 M/[facility] LAB HEMETOLOGY METHOD 12/05/2024 11:30 AM [facility] Hemoglobin 11.1(L) 11.5 - 16.0 g/dL LAB HEMETOLOGY METHOD 12/05/2024 11:30 AM [facility] Hematocrit 34.7(L) 35.0 - 47.0 % LAB HEMETOLOGY METHOD 12/05/2024 11:30 AM [facility] MCV 96.9 79.0 - 98.0 FL LAB HEMETOLOGY METHOD 12/05/2024 11:30 AM [facility] MCH 31.0 27.0 - 32.0 pcg LAB HEMETOLOGY METHOD 12/05/2024 11:30 AM [facility] MCHC 32.0 32.0 - 37.0 g/dL LAB HEMETOLOGY METHOD 12/05/2024 11:30 AM [facility] RDW 13.5 11.0 - 15.0 % LAB HEMETOLOGY METHOD 12/05/2024 11:30 AM [facility] Platelets 203 130 - 400 K/mcL LAB HEMETOLOGY METHOD 12/05/2024 11:30 AM [facility] MPV 10.7 7.0 - 11.0 FL LAB HEMETOLOGY METHOD 12/05/2024 11:30 AM [facility] NRBC 0.0 <1.0 % LAB HEMETOLOGY METHOD 12/05/2024 11:30 AM [facility] NRBC Absolute 0.00 <0.10 K/mcL LAB HEMETOLOGY METHOD 12/05/2024 11:30 AM [facility] Blood Venous blood specimen / Unknown Venipuncture / Unknown 12/05/2024 7:00 AM EDT 12/05/2024 10:24 AM EDT us Giovanni Coffey MD LAB BLOOD ORDERABLES Final Resul t [facility] [address] [place] [address], [place] [phone] * (ABNORMAL) C-reactive protein (12/05/2024 7:00 AM EDT) Only the most recent of9 resultswithin the time period is included. [facility] C-Reactive Protein 1.16(H) <=0.50 mg/dL LAB CHEMISTRY METHOD 12/05/2024 1:12 PM EDT [facility] Blood Venous blood specimen / Unknown Venipuncture / Unknown 12/05/2024 7:00 AM EDT 12/05/2024 10:24 AM EDT Giovanni Coffey MD LAB BLOOD ORDERABLES Final Resul t Performing Organization Address [facility]/ZIP Co de Phone Number [facility] [address] [place] [address], [place] [phone] * (ABNORMAL) Comprehensive metabolic panel (12/05/2024 7:00 AM EDT) Only the most recent of12 resultswithin the time period is included. [facility] Sodium 141 133 - 145 mmol/L LAB CHEMISTRY METHOD 12/05/2024 1:02 PM [facility] Potassium 3.9 3.5 - 5.5 mmol/L LAB CHEMISTRY METHOD 12/05/2024 1:02 PM [facility] Chloride 107 96 - 110 mmol/L LAB CHEMISTRY METHOD 12/05/2024 1:02 PM [facility] CO2 29 21 - 32 mmol/L LAB CHEMISTRY METHOD 12/05/2024 1:02 PM [facility] Anion Gap 5 3 - 11 LAB CHEMISTRY METHOD 12/05/2024 1:02 PM [facility] Glucose 86 70 - 100 mg/dL LAB CHEMISTRY METHOD 12/05[facility]2024 [facility] BUN 11 5 - 25 mg/dL LAB CHEMISTRY METHOD 12/05/2024 1:02 PM [facility] Creatinine 0.57 0.50 - 1.10 mg/dL LAB CHEMISTRY METHOD 12/05/2024 1:02 PM [facility] eGFR 92 >=60 mL/min/1. 73m2 LAB CHEMISTRY METHOD 12/05/2024 1:02 PM [facility] Comment:Calculation based on the??Chronic Kidney Disease Epidemiology Collaboration (CKD-EPI) equation refit??without adjustment for race. BUN/Creatinine Ratio 19.3 LAB CHEMISTRY METHOD 12/05/2024 1:02 PM [facility] Calcium 8.4(L) 8.5 - 10.5 mg/dL LAB CHEMISTRY METHOD 12/05/2024 1:02 PM [facility] AST (SGOT) 14 10 - 42 unit/L LAB CHEMISTRY METHOD 12/05/2024 1:02 PM [facility] ALT (SGPT) 14 10 - 60 unit/L LAB CHEMISTRY METHOD 12/05/2024 1:02 PM [facility] Alkaline Phosphatase 61 42 - 121 unit/L LAB CHEMISTRY METHOD 12/05/2024 1:02 PM [facility] Total Protein 6.5 6.0 - 8.0 g/dL LAB CHEMISTRY METHOD 12/05/2024 1:02 PM [facility] Albumin 3.2 3.2 - 5.0 g/dL LAB CHEMISTRY METHOD 12/05/2024 1:02 PM [facility] Total Bilirubin 0.4 0.0 - 1.4 mg/dL LAB CHEMISTRY METHOD 12/05/2024 1:02 PM [facility] Blood Venous blood specimen / Unknown Venipuncture / Unknown 12/05/2024 7:00 AM EDT 12/05/2024 10:24 AM EDT us Giovanni Coffey MD LAB BLOOD ORDERABLES Final Resul t [facility] [address] [place] [address], [place] [phone] * (ABNORMAL) Urinalysis with reflex microscopic (11/18/2024 12:00 AM EDT) Only the most recent of2 resultswithin the time period is included. Specific [place] Urine 1.020 1.003 - 1.030 LAB URINALYSIS - AUTOMATED METHOD 11/19/2024 12:49 PM EDT [facility] pH, Urine 6.0 5.0 - 8.0 pH LAB URINALYSIS - AUTOMATED METHOD 11/19/2024 12:49 PM [facility] Leukocytes, Urine Moderate(A) Negative LAB URINALYSIS - AUTOMATED METHOD 11/19/2024 12:49 PM [facility] Nitrite, Urine Positive(A) Negative LAB URINALYSIS - AUTOMATED METHOD 11/19/2024 12:49 PM [facility] Protein, Urine 30(A) <=Trace mg/dL LAB URINALYSIS - AUTOMATED METHOD 11/19/2024 12:49 PM [facility] Glucose, Urine Negative Negative mg/dL LAB URINALYSIS - AUTOMATED METHOD 11/19/2024 12:49 PM [facility] Ketones, Urine Trace(A) Negative mg/dL LAB URINALYSIS - AUTOMATED METHOD 11/19/2024 12:49 PM [facility] Urobilinogen , Urine 0.2 0.2 - 1.0 mg/dL LAB URINALYSIS - AUTOMATED METHOD 11/19/2024 12:49 PM [facility] Bilirubin, Urine Negative Negative LAB URINALYSIS - AUTOMATED METHOD 11/19/2024 12:49 PM [facility] Blood, Urine Small(A) Negative LAB URINALYSIS - AUTOMATED METHOD 11/19/2024 12:49 PM EDT [facility] RBC, Urine >100(H) 0 - 4 /HPF 11/19/2024 12:49 PM EDT [facility] WBC, Urine >100(H) 0 - 4 /HPF 11/19/2024 12:49 PM EDT [facility] Squamous Epithelial, Urine 20 0 - 60 /LPF 11/19/2024 12:49 PM EDT [facility] Bacteria, Urine Many(A) Negative /HPF 11/19/2024 12:49 PM EDT [facility] Mucus, Urine Small None /HPF 11/19/2024 12:49 PM EDT [facility] Urine Urine specimen obtained by clean catch procedure / Unknown Non-blood Collection / Unknown 11/18/2024 11/19/2024 12:13 PM EDT us Giovanni Coffey MD LAB URINE ORDERABLES Final Resul t [facility] [address] [place] [address], * (ABNORMAL) Culture urine (11/18/2024 12:00 AM EDT) Only the most recent of2 resultswithin the time period is included. Culture, Urine >100,000 CFU/mL Escherichia coli(A) DANO 11/21/2024 11:19 AM EDT [facility] Urine Urine specimen obtained by clean catch procedure / Unknown Non-blood Collection / Unknown 11/18/2024 11/19/2024 12:13 PM EDT Narrative Organism Antibiotic Method Susceptibility Escherichia coli Amoxicillin/Clavulanate DANO <=2 ug/ml: Susceptible Escherichia coli Ampicillin/Sulbactam DANO <=2 ug/ml: Susceptible Escherichia coli Piperacillin/Tazobactam DANO <=4 ug/ml: Susceptible Escherichia coli Cefazolin (Urine) DANO <=1 ug/ml: Susceptible Escherichia coli Cefoxitin DANO <=4 [...] MICROBIOLOGY - GENERAL ORDER ERWIN Final Result [facility] [address] [place] [address], [place] [phone] * (ABNORMAL) Lipid panel with reflex to direct LDL (11/17/2024 5:21 AM EDT) Only the most recent of2 resultswithin the time period is included. Cholesterol 178 0 - 200 mg/dL LAB CHEMISTRY METHOD 11/17/2024 11:55 AM T [facility] Triglycerides 122 0 - 150 mg/dL LAB CHEMISTRY METHOD 11/17/2024 11:55 AM EDT [facility] HDL 51 >=40 mg/dL LAB CHEMISTRY METHOD 11/17[facility]2024 11:[facility] LDL Calculated 103(H) 0 - 100 mg/dL LAB CHEMISTRY METHOD 11/17/2024 11:55 AM [facility] VLDL Cholesterol Waldemar 24.4 mg/dL LAB CHEMISTRY METHOD 11/17/2024 11:55 AM [facility] Non HDL Chol. (LDL+VLDL) 127 <145 mg/dL LAB CHEMISTRY METHOD 11/17/2024 11:55 AM EDT [facility] Chol/HDL Ratio 3.5 0.0 - 4.4 LAB CHEMISTRY METHOD 11/17/2024 11:55 AM EDT [facility] Blood Venous blood specimen / Unknown Venipuncture / Unknown 11/17/2024 5:21 AM EDT 11/17/2024 10:33 AM EDT Giovanni Coffey MD LAB BLOOD ORDERABLES Final Resul t [facility] [address] [place] [address], [place] [phone] * External Vascular Ultrasound (10/23/2024) Only the most recent of4 resultswithin the time period is included. Anatomical Region Laterality Modality Ultrasound us Provider [facility] CV VASCULAR PROCEDURES F inal Result * External Xray Report (10/13/2024) Only the [...] IMPRESSION: ?? Osteoporosis by WHO criteria. The [facility] Department of Internal Medicine recommends [...] alternative screening schedule based on may Amaya., [facility] August 24, 2011 for patients [...] IMPRESSION: IMPRESSION: Osteoporosis by WHO criteria. The [facility] Department of Internal Medicine recommendsusing [...] schedule based on may [facility]., [facility] for patients with [facility]openia (based on [...] Relevant to Health Maintenance Insurance [facility] MEDICARE ADVANTAGE [facility] MEDICARE ADVANTAGE MEDICARE [facility] Care Teams Electronic Engraver Relationship Specialty Start Date End Date Carlita Villegas MD [address] [place] [phone] PCP - General 08/25/22
--- OUTSIDE RECORDS SUMMARY | 2024-12-08 08:25 | XMS_ITS | Encounter Summary ---
Author Organization [facility] Address [address] [place] [address] Care Team Providers Care Metallurgical Inspector Name Role Phone Carlita Villegas MD Primary Care Provider [phone] Encounter Details Date Type Department Care Team (Late st Contact Info) Description 10/23/[address] [facility] - Main Lab [address] [facility] [place] [address] Giovanni Coffey MD [address] [place] [address], [phone] Essential (primary) hypertension; Hyperlipidemia, unspecified; Unspecified [...] 10:00 AM EST Office Visit Endocrinology - [place] [address] [place], [place] [phone] Gisell Villegas PA [address] [place], [place] 08/26/2025 10:00 AM EST Office Visit Vascular Surgery - [place] [address] [place] [address] Priya Lopez MD [address] [place] [address] documented as of this encounter Procedures Procedure [...] mmol/L LAB CHEMISTRY METHOD 10/24/2024 11:18 AM [facility] Potassium 4.6 3.5 - 5.5 mmol/L LAB CHEMISTRY METHOD 10/24/2024 11:18 AM [facility] Chloride 106 96 - 110 mmol/L LAB CHEMISTRY METHOD 10/24/2024 11:18 AM [facility] CO2 28 21 - 32 mmol/L LAB CHEMISTRY METHOD 10/24/2024 11:18 AM [facility] Anion Gap 5 3 - 11 LAB CHEMISTRY METHOD 10/24/2024 11:18 AM [facility] Glucose 84 70 - 100 mg/dL LAB CHEMISTRY METHOD 10/24/2024 11:18 AM [facility] BUN 19 5 - 25 mg/dL LAB CHEMISTRY METHOD 10/24/2024 11:18 AM [facility] Creatinine 0.72 0.50 - 1.10 mg/dL LAB CHEMISTRY METHOD 10/24/2024 11:18 AM [facility] eGFR 85 >=60 mL/min/1. 73m2 LAB CHEMISTRY METHOD 10/24/2024 11:18 AM [facility] Comment:Calculation based on the??Chronic Kidney Disease Epidemiology Collaboration (CKD-EPI) equation refit??without adjustment for race. BUN/Creatinine Ratio 26.4 LAB CHEMISTRY METHOD 10/24/2024 11:18 AM [facility] Calcium 8.6 8.5 - 10.5 mg/dL LAB CHEMISTRY METHOD 10/24/2024 11:18 AM [facility] AST (SGOT) 62(H) 10 - 42 unit/L LAB CHEMISTRY METHOD 10/24/2024 11:18 AM [facility] ALT (SGPT) 91(H) 10 - 60 unit/L LAB CHEMISTRY METHOD 10/24/2024 11:18 AM [facility] Alkaline Phosphatase 156(H) 42 - 121 unit/L LAB CHEMISTRY METHOD 10/24/2024 11:18 AM [facility] Total Protein 6.4 6.0 - 8.0 g/dL LAB CHEMISTRY METHOD 10/24/2024 11:18 AM [facility] Albumin 2.9(L) 3.2 - 5.0 g/dL LAB CHEMISTRY METHOD 10/24/2024 11:18 AM [facility] Total Bilirubin 0.5 0.0 - 1.4 mg/dL LAB CHEMISTRY METHOD 10/24/2024 11:18 AM [facility] Blood Venous blood specimen / Unknown Venipuncture / Unknown 10/24/2024 5:10 AM EDT 10/24/2024 9:54 AM EDT us Giovanni Coffey MD LAB BLOOD ORDERABLES Final Resul t [facility] [address] [place] [address], * (ABNORMAL) Complete blood count (10/24/2024 5:10 AM EDT) WBC 5.1 4.8 - 10.8 K/mcL LAB HEMETOLOGY METHOD 10/24/2024 10:04 AM EDT [facility] RBC 3.50(L) 3.80 - 4.80 M/mcL LAB HEMETOLOGY METHOD 10/24/2024 10:04 AM EDT [facility] Hemoglobin 10.9(L) 11.5 - 16.0 g/dL LAB HEMETOLOGY METHOD 10/24/2024 10:04 AM T [facility] Hematocrit 34.2(L) 35.0 - 47.0 % LAB HEMETOLOGY METHOD 10/[facility]24 [facility] MCV 98.6(H) 79.0 - 98.0 FL LAB HEMETOLOGY METHOD 10/24/2024 10:[facility] MCH 31.4 27.0 - 32.0 pcg LAB HEMETOLOGY METHOD 10/24/2024 10:04 AM EDT [facility] MCHC 31.9(L) 32.0 - 37.0 g/dL LAB HEMETOLOGY METHOD 10/24/2024 10:04 AM [facility] RDW 13.4 11.0 - 15.0 % LAB HEMETOLOGY METHOD 10/24/2024 10:04 AM [facility] Platelets 253 130 - 400 K/mcL LAB HEMETOLOGY METHOD 10/24/2024 10:04 AM [facility] MPV 10.7 7.0 - 11.0 FL LAB HEMETOLOGY METHOD 10/24/2024 10:04 AM EDT [facility] NRBC 0.0 <1.0 % LAB HEMETOLOGY METHOD 10/24/2024 10:04 AM EDT [facility] NRBC Absolute 0.00 <0.10 K/mcL LAB HEMETOLOGY METHOD 10/24/2024 10:04 AM EDT [facility] Blood Venous blood specimen / Unknown Venipuncture / Unknown 10/24/2024 5:10 AM EDT 10/24/2024 9:54 AM EDT us Giovanni Coffey MD LAB BLOOD ORDERABLES Final Resul t Performing Organization Address City/[facility]/ZIP Co de Phone Number [facility] [address] [place] [address], [place] [phone] * (ABNORMAL) C-reactive protein (10/24/2024 5:10 AM EDT) C-Reactive Protein 1.44(H) <=0.50 mg/dL LAB CHEMISTRY METHOD 10/24/2024 11:18 AM EDT [facility] Blood Venous blood specimen / Unknown Venipuncture / Unknown 10/24/2024 5:10 AM EDT 10/24/2024 9:54 AM EDT us Giovanni Coffey MD LAB BLOOD ORDERABLES Final Resul t Performing Organization Address City/[facility]/ZIP Co de Phone Number [facility] [address] [place] [address], [place] [phone] documented in this encounter Visit Diagnoses Diagnosis Essential (primary) hypertension Unspecified essential hypertension Hyperlipidemia, unspecified Unspecified osteoarthritis, unspecified site Encounter for other orthopedic aftercare documented in this encounter Care Teams Metallurgical Inspector Relationship Specialty Start Date End Date Carlita Villegas MD [address] [place] [id number] PCP - General 08/25/22 documented as of this encounter
--- OUTSIDE RECORDS SUMMARY | 2024-12-08 08:25 | XMS_ITS | Encounter Summary ---
Author Organization [facility] Address [address] [place] [address] Care Team Providers Care Can Carrier Name Role Phone Carlita Villegas MD Primary Care Provider [phone] Encounter Details Date Type Department Care Team (Late st Contact Info) Description 12/04/2024 Lab Requisition [facility] - Main Lab [address] [facility] [place] [address] Giovanni Coffey MD [address] [place] [address], [phone] Essential (primary) hypertension; Hyperlipidemia, unspecified; Encounter for other orthopedic aftercare; Vitamin D deficiency, unspecified Social History Tobacco Use Types Packs/Day [...] 10:00 AM EST Office Visit Endocrinology - [place] [address] [place], [place] [phone] Gisell Villegas PA [address] [place], [place] 08/26/2025 10:00 AM EST Office Visit Vascular Surgery - [place] [address] [place] [address] Priya Lopez MD [address] [place] [address] documented as of this encounter Procedures Procedure [...] other orthopedic aftercare Vitamin D deficiency, unspecified documented in this encounter Results * Vitamin D 25 hydroxy (12/05/2024 7:00 AM EDT) Vit D, 25-Hydroxy 51.0 30.0 - 80.0 ng/mL LAB CHEMISTRY METHOD 12/05/2024 1:57 PM EDT [facility] Blood Venous blood specimen / Unknown Venipuncture / Unknown 12/05/2024 7:00 AM EDT 12/05/2024 10:24 AM EDT us Giovanni Coffey MD LAB BLOOD ORDERABLES Final Resul t [facility] [address] [place] [address], * (ABNORMAL) Comprehensive metabolic panel (12/05/2024 7:00 AM EDT) Sodium 141 133 - 145 mmol/L LAB CHEMISTRY METHOD 12/05/2024 1:02 PM [facility] Potassium 3.9 3.5 - 5.5 mmol/L LAB CHEMISTRY METHOD 12/05/2024 1:02 PM [facility] Chloride 107 96 - 110 mmol/L LAB CHEMISTRY METHOD 12/05/2024 1:02 PM [facility] CO2 29 21 - 32 mmol/L LAB CHEMISTRY METHOD 12/05/2024 1:02 PM [facility] Anion Gap 5 3 - 11 LAB CHEMISTRY METHOD 12/05/2024 1:02 PM [facility] Glucose 86 70 - 100 mg/dL LAB CHEMISTRY METHOD 12/05/2024 1:02 PM [facility] BUN 11 5 - 25 mg/dL LAB CHEMISTRY METHOD 12/05/2024 1:02 PM [facility] Creatinine 0.57 0.50 - 1.10 mg/dL LAB CHEMISTRY METHOD 12/05/2024 1:02 PM [facility] eGFR 92 >=60 mL/min/1. 73m2 LAB CHEMISTRY METHOD 12/05/2024 1:02 PM [facility] Comment:Calculation based on the??Chronic Kidney Disease Epidemiology Collaboration (CKD-EPI) equation refit??without adjustment for race. BUN/Creatinine Ratio 19.3 LAB CHEMISTRY METHOD 12/05/2024 1:02 PM [facility] Calcium 8.4(L) 8.5 - 10.5 mg/dL LAB CHEMISTRY METHOD 12/05/2024 1:02 PM [facility] AST (SGOT) 14 10 - 42 unit/L LAB CHEMISTRY METHOD 12/05/2024 1:02 PM [facility] ALT (SGPT) 14 10 - 60 unit/L LAB CHEMISTRY METHOD 12/05/2024 1:02 PM EDT [facility] Alkaline Phosphatase 61 42 - 121 unit/L LAB CHEMISTRY METHOD 12/05/2024 1:02 PM EDT [facility] Total Protein 6.5 6.0 - 8.0 g/dL [facility]STR[facility] Albumin 3.2 3.2 - 5.0 g/dL LAB CHEMISTRY METHOD 12/05/2024 1:02 PM EDT [facility] Total Bilirubin 0.4 0.0 - 1.4 mg/dL LAB CHEMISTRY METHOD 12/05/2024 1:02 PM [facility] Blood Venous blood specimen / Unknown Venipuncture / Unknown 12/05/2024 7:00 AM EDT 12/05/2024 10:24 AM EDT us Giovanni Coffey MD LAB BLOOD ORDERABLES Final Resul t [facility] [address] [place] [address], * (ABNORMAL) Complete blood count (12/05/2024 7:00 AM EDT) WBC 3.4(L) 4.8 - 10.8 K/mcL LAB HEMETOLOGY METHOD 12/05/2024 11:30 AM EDT [facility] RBC 3.60(L) 3.80 - 4.80 M/mcL LAB HEMETOLOGY METHOD 12/[facility] Hemoglobin 11.1(L) 11.5 - 16.0 g/dL LAB HEMETOLOGY METHOD 12/05/2024 11:30 AM [facility] Hematocrit 34.7(L) 35.0 - 47.0 % LAB HEMETOLOGY METHOD 12/05/2024 11:30 AM EDT [facility] MCV 96.9 79.0 - 98.0 FL LAB HEMETOLOGY METHOD 12/05/2024 11:30 AM EDT [facility] MCH 31.0 27.0 - 32.0 pcg LAB HEMETOLOGY METHOD 12/05/2024 [facility] MCHC 32.0 32.0 - 37.0 g/dL LAB HEMETOLOGY METHOD 12/05/2024 11:30 AM EDT [facility] RDW 13.5 11.0 - 15.0 % LAB HEMETOLOGY METHOD 12/05/2024 11:30 AM T [facility] Platelets 203 130 - 400 K/mcL LAB HEMETOLOGY METHOD 12/05/2024 11:30 AM [facility] MPV 10.7 7.0 - 11.0 FL LAB HEMETOLOGY METHOD 12/05/2024 11:30 AM [facility] NRBC 0.0 <1.0 % LAB HEMETOLOGY METHOD 12/05/2024 11:30 AM T [facility] NRBC Absolute 0.00 <0.10 K/mcL LAB HEMETOLOGY METHOD 12/05/2024 11:30 AM [facility] Blood Venous blood specimen / Unknown Venipuncture / Unknown 12/05/2024 7:00 AM EDT 12/05/2024 10:24 AM EDT us Giovanni Coffey MD LAB BLOOD ORDERABLES Final Resul t [facility] [address] [place] [address], * (ABNORMAL) C-reactive protein (12/05/2024 7:00 AM EDT) C-Reactive Protein 1.16(H) <=0.50 mg/dL LAB CHEMISTRY METHOD 12/05/2024 1:12 PM EDT [facility] Blood Venous blood specimen / Unknown Venipuncture / Unknown 12/05/2024 7:00 AM EDT 12/05/2024 10:24 AM EDT us Giovanni Coffey MD LAB BLOOD ORDERABLES Final Resul t [facility] [address] [place] [address], documented in this encounter Visit Diagnoses Diagnosis Essential (primary) hypertension Unspecified essential hypertension Hyperlipidemia, unspecified Encounter for other orthopedic aftercare Vitamin D deficiency, unspecified documented in this encounter Care Teams Can Carrier Relationship Specialty Start Date End Date Carlita Vilelgas MD [address] [place] [address] PCP - General 08/25/22 documented as of this encounter
--- OUTSIDE RECORDS SUMMARY | 2024-12-08 08:25 | XMS_ITS | Encounter Summary ---
Author Organization [facility] Address [address] [place] [address] Care Team Providers Care Discharge Specialist Name Role Phone Carlita Villegas MD Primary Care Provider [phone] Encounter Details Date Type Department Care Team (Late st Contact Info) Description 11/20/2024 Lab Requisition [facility] - Main Lab [address] [facility] [place] [address] Giovanni Coffey MD [address] [place] [address], [phone] Essential (primary) hypertension; Hyperlipidemia, unspecified; Unspecified [...] 10:00 AM EST Office Visit Endocrinology - [place] [address] [place], [place] [phone] Gisell Villegsa PA [address] [place], [place] 08/26/2025 10:00 AM EST Office Visit Vascular Surgery - [place] [address] [place] [address] Priya Lopez MD [address] [place] [address] documented as of this encounter Procedures Procedure Name Priority Date/Time Associated Diagnosis Comments COMPLETE BLOOD COUNT Routine 11/21/2024 7:13 AM [...] aftercare documented in this encounter Results * Comprehensive metabolic panel (11/21/2024 7:13 AM EDT) Sodium 140 133 - 145 mmol/L LAB CHEMISTRY METHOD 11/21/2024 11:06 AM [facility] Potassium 4.2 3.5 - 5.5 mmol/L LAB CHEMISTRY METHOD 11/21/2024 11:06 AM [facility] Chloride 105 96 - 110 mmol/L LAB CHEMISTRY METHOD 11/21/2024 11:06 AM [facility] CO2 29 21 - 32 mmol/L LAB CHEMISTRY METHOD 11/21/2024 11:06 AM [facility] Anion Gap 6 3 - 11 LAB CHEMISTRY METHOD 11/21/2024 11:06 AM [facility] Glucose 81 70 - 100 mg/dL LAB CHEMISTRY METHOD 11/21/2024 11:06 AM [facility] BUN 15 5 - 25 mg/dL LAB CHEMISTRY METHOD 11/21/2024 11:06 AM [facility] Creatinine 0.68 0.50 - 1.10 mg/dL LAB CHEMISTRY METHOD 11/21/2024 11:06 AM [facility] eGFR 88 >=60 mL/min/1. 73m2 LAB CHEMISTRY METHOD 11/21/2024 11:06 AM [facility] Comment:Calculation based on the??Chronic Kidney Disease Epidemiology Collaboration (CKD-EPI) equation refit??without adjustment for race. BUN/Creatinine Ratio 22.1 LAB CHEMISTRY METHOD 11/21/2024 11:06 AM [facility] Calcium 9.2 8.5 - 10.5 mg/dL LAB CHEMISTRY METHOD 11/21/2024 11:06 AM [facility] AST (SGOT) 17 10 - 42 unit/L LAB CHEMISTRY METHOD 11/21/2024 11:06 AM [facility] ALT (SGPT) 18 10 - 60 unit/L LAB CHEMISTRY METHOD 11/21/2024 11:06 AM [facility] Alkaline Phosphatase 85 42 - 121 unit/L LAB CHEMISTRY METHOD 11/21/2024 11:06 AM [facility] Total Protein 6.5 6.0 - 8.0 g/dL LAB CHEMISTRY METHOD 11/21/2024 11:06 AM [facility] Albumin 3.2 3.2 - 5.0 g/dL LAB CHEMISTRY METHOD 11/21/2024 11:06 AM [facility] Total Bilirubin 0.4 0.0 - 1.4 mg/dL LAB CHEMISTRY METHOD 11/21/2024 11:06 AM [facility] Blood Venous blood specimen / Unknown Venipuncture / Unknown 11/21/2024 7:13 AM EDT 11/21/2024 9:07 AM EDT us Giovanni Coffey MD LAB BLOOD ORDERABLES Final Resul t [facility] [address] [place] [address], * (ABNORMAL) Complete blood count (11/21/2024 7:13 AM EDT) WBC 3.5(L) 4.8 - 10.8 K/mcL LAB HEMETOLOGY METHOD 11/21/2024 10:12 AM EDT [facility] RBC 3.50(L) 3.80 - 4.80 M/mcL LAB HEMETOLOGY METHOD 11/21/2024 10:12 AM EDT [facility] Hemoglobin 11.0(L) 11.5 - 16.0 g/dL LAB HEMETOLOGY METHOD 11/21/2024 10:12 AM EDT [facility] Hematocrit 34.4(L) 35.0 - 47.0 % LAB HEMETOLOGY METHOD 11/21/2024 10:12 AM EDT [facility] MCV 97.7 79.0 - 98.0 FL LAB HEMETOLOGY METHOD 11/21/2024 10:12 AM EDT [facility] MCH 31.3 27.0 - 32.0 pcg LAB HEMETOLOGY METHOD [facility] MCHC 32.0 32.0 - 37.0 g/dL LAB HEMETOLOGY METHOD 11/21/2024 10:12 AM EDT [facility] RDW 13.5 11.0 - 15.0 % LAB HEMETOLOGY METHOD 11/21/2024 10:12 AM EDT [facility] Platelets 197 130 - 400 K/mcL LAB HEMETOLOGY METHOD 11/21/2024 10:12 AM EDT [facility] MPV 10.8 7.0 - 11.0 FL LAB HEMETOLOGY METHOD 11/21/2024 10:12 AM EDT [facility] NRBC 0.0 <1.0 % LAB HEMETOLOGY METHOD 11/21/2024 10:12 AM EDT [facility] NRBC Absolute 0.00 <0.10 K/mcL LAB HEMETOLOGY METHOD 11/21/2024 10:12 AM EDT [facility] Blood Venous blood specimen / Unknown Venipuncture / Unknown 11/21/2024 7:13 AM EDT 11/21/2024 9:07 AM EDT Giovanni Coffey MD LAB BLOOD ORDERABLES Final Resul t Performing Organization Address City/[facility]/ZIP Co de Phone Number [facility] [address] [place] [address], [place] [phone] * C-reactive protein (11/21/2024 7:13 AM EDT) C-Reactive Protein 0.48 <=0.50 mg/dL LAB CHEMISTRY METHOD 11/21/2024 10:55 AM EDT [facility] Blood Venous blood specimen / Unknown Venipuncture / Unknown 11/21/2024 7:13 AM EDT 11/21/2024 9:07 AM EDT Giovanni Coffey MD LAB BLOOD ORDERABLES Final Resul t [facility] [address] [place] [address], [place] [phone] documented in this encounter Visit Diagnoses Diagnosis Essential (primary) hypertension Unspecified essential hypertension Hyperlipidemia, unspecified Unspecified osteoarthritis, unspecified site Encounter for other orthopedic aftercare documented in this encounter Care Teams Discharge Specialist Relationship Specialty Start Date End Date Carlita Villegas MD [address] [place] [address] PCP - General 08/25/22 documented as of this encounter
--- OUTSIDE RECORDS SUMMARY | 2024-12-08 08:25 | XMS_ITS | Encounter Summary ---
Author Organization [facility] Address [address] [place] [address] Care Team Providers Care Airplane Charter Clerk Name Role Phone Carlita Villegas MD Primary Care Provider [phone] Encounter Details Date Type Department Care Team (Late Contact Info) Description 11/15/2024 Lab Requisition [facility] - Main Lab [address] [facility] [place] [address] Giovanni Coffey MD [address] [place] [address], [phone] Essential (primary) hypertension; Hyperlipidemia, unspecified Social [...] EST Office Visit Endocrinology - [place] [address] [place] [address] Gisell Villegas PA [address] [place] [address] 08/26/2025 10:00 AM EST Office Visit Vascular Surgery - [place] [address] [place] [address] Priya Lopez MD [address] [place] [address] documented as of this encounter Procedures Procedure Name Priority Date/Time Associated Diagnosis Comments LIPID PANEL WITH REFLEX TO DIRECT LDL Routine 11/17/2024 5:21 AM EDT Essential (primary) hypertension Hyperlipidemia, unspecified COMPLETE BLOOD COUNT Routine 11/17/2024 5:21 AM EDT Essential (primary) hypertension Hyperlipidemia, unspecified C-REACTIVE PROTEIN Routine 11/17/2024 5: 21 AM EDT Essential (primary) hypertension Hyperlipidemia, unspecified COMPREHENSIVE METABOLIC PANEL Routine 11/17/2024 5:21 AM EDT Essential (primary) hypertension Hyperlipidemia, unspecified documented in this encounter Results * C-reactive protein (11/17/2024 5:21 AM EDT) C-Reactive Protein 0.47 <=0.50 mg/dL LAB CHEMISTRY METHOD 11/17/2024 11:55 AM EDT [facility] Blood Venous blood specimen / Unknown Venipuncture / Unknown 11/17/2024 5:21 AM EDT 11/17/2024 10:33 AM EDT us Giovanni Coffey MD LAB BLOOD ORDERABLES Final Resul t [facility] [address] [place] [address], * (ABNORMAL) Lipid panel with reflex to direct LDL (11/17/2024 5:21 AM EDT) Cholesterol 178 0 - 200 mg/dL LAB CHEMISTRY METHOD 11/17/2024 11:55 AM EDT [facility] Triglycerides 122 0 - 150 mg/dL LAB CHEMISTRY METHOD 11/17/2024 11:55 AM EDT [facility] HDL 51 >=40 mg/dL LAB CHEMISTRY METHOD 11/17/2024 11:55 AM [facility] LDL Calculated 103(H) 0 - 100 mg/dL LAB CHEMISTRY METHOD [facility]/17[facility]24 [facility] VLDL Cholesterol Waldemar 24.4 mg/dL LAB CHEMISTRY METHOD 11/17/2024 11:55 AM [facility] Non HDL Chol. (LDL+VLDL) 127 <145 mg/dL LAB CHEMISTRY METHOD 11/17/2024 11:55 AM [facility] Chol/HDL Ratio 3.5 0.0 - 4.4 LAB CHEMISTRY METHOD 11/17/2024 11:55 AM [facility] Blood Venous blood specimen / Unknown Venipuncture / Unknown 11/17/2024 5:21 AM EDT 11/17/2024 10:33 AM EDT us Giovanni Coffey MD LAB BLOOD ORDERABLES Final Resul t [facility] [address] [place] [address], [place] [phone] * (ABNORMAL) Comprehensive metabolic panel (11/17/2024 5:21 AM EDT) Sodium 139 133 - 145 mmol/L LAB CHEMISTRY METHOD 11/17/2024 11:55 AM T [facility] Potassium 4.0 3.5 - 5.5 mmol/L LAB CHEMISTRY METHOD 11/17/2024 11:55 AM [facility] Chloride 105 96 - 110 mmol/L LAB CHEMISTRY METHOD 11/17/2024 11:55 AM [facility] CO2 28 21 - 32 mmol/L LAB CHEMISTRY METHOD 11/17/2024 [facility] Anion Gap 6 3 - 11 LAB CHEMISTRY METHOD 11/17/2024 11:55 AM [facility] Glucose 76 70 - 100 mg/dL LAB CHEMISTRY METHOD 11/17/2024 11:55 AM [facility] BUN 14 5 - 25 mg/dL LAB CHEMISTRY METHOD 11/17/2024 11:55 AM [facility] Creatinine 0.68 0.50 - 1.10 mg/dL LAB CHEMISTRY METHOD 11/17/2024 11:55 AM [facility] eGFR 88 >=60 mL/min/1. 73m2 LAB CHEMISTRY METHOD 11/17/2024 11:55 AM [facility] Comment:Calculation based on the??Chronic Kidney Disease Epidemiology Collaboration (CKD-EPI) equation refit??without adjustment for race. BUN/Creatinine Ratio 20.6 LAB CHEMISTRY METHOD 11/17/2024 11:55 AM [facility] Calcium 8.7 8.5 - 10.5 mg/dL LAB CHEMISTRY METHOD 11/17/2024 11:55 AM [facility] AST (SGOT) 18 10 - 42 unit/L LAB CHEMISTRY METHOD 11/17/2024 11:55 AM [facility] ALT (SGPT) 22 10 - 60 unit/L LAB CHEMISTRY METHOD 11/17/2024 11:55 AM [facility] Alkaline Phosphatase 100 42 - 121 unit/L LAB CHEMISTRY METHOD 11/17/2024 11:55 AM [facility] Total Protein 6.3 6.0 - 8.0 g/dL LAB CHEMISTRY METHOD 11/17/2024 11:55 AM [facility] Albumin 3.1(L) 3.2 - 5.0 g/dL LAB CHEMISTRY METHOD 11/17/2024 11:55 AM [facility] Total Bilirubin 0.4 0.0 - 1.4 mg/dL LAB CHEMISTRY METHOD 11/17/2024 11:55 AM EDT [facility] Blood Venous blood specimen / Unknown Venipuncture / Unknown 11/17/2024 5:21 AM EDT 11/17/2024 10:33 AM EDT us Giovanni Coffey MD LAB BLOOD ORDERABLES Final Resul t [facility] [address] [place] [address], [place] [phone] * (ABNORMAL) Complete blood count (11/17/2024 5:21 AM EDT) WBC 5.1 4.8 - 10.8 K/mcL LAB HEMETOLOGY METHOD 11/17/2024 11:19 AM [facility] RBC 3.40(L) 3.80 - 4.80 M/mcL LAB HEMETOLOGY METHOD 11/17/2024 11:19 AM [facility] Hemoglobin 10.8(L) 11.5 - 16.0 g/dL LAB HEMETOLOGY METHOD 11/17/2024 11:19 AM [facility] Hematocrit 33.3(L) 35.0 - 47.0 % LAB HEMETOLOGY METHOD 11/17/2024 11:19 AM [facility] MCV 97.1 79.0 - 98.0 FL LAB HEMETOLOGY METHOD 11/17[facility]2024 [facility] MCH 31.5 27.0 - 32.0 pcg LAB HEMETOLOGY METHOD 11/17/2024 11:19 AM [facility] MCHC 32.4 32.0 - 37.0 g/dL LAB HEMETOLOGY METHOD 11/17/2024 11:19 AM [facility] RDW 13.5 11.0 - 15.0 % LAB HEMETOLOGY METHOD 11/17/2024 11:19 AM EDT [facility] Platelets 194 130 - 400 K/mcL LAB HEMETOLOGY METHOD 11/17/2024 11:19 AM EDT [facility] MPV 10.8 7.0 - 11.0 FL LAB HEMETOLOGY METHOD 11/17/2024 11:19 AM EDT [facility] NRBC 0.0 <1.0 % LAB HEMETOLOGY METHOD 11/17/2024 11:19 AM EDT [facility] NRBC Absolute 0.00 <0.10 K/mcL LAB HEMETOLOGY METHOD 11/17/2024 11:19 AM EDT [facility] Blood Venous blood specimen / Unknown Venipuncture / Unknown 11/17/2024 5:21 AM EDT 11/17/2024 10:33 AM EDT us Giovanni Coffey MD LAB BLOOD ORDERABLES Final Resul t [facility] [address] [place] [address], documented in this encounter Visit Diagnoses Diagnosis Essential (primary) hypertension Unspecified essential hypertension Hyperlipidemia, unspecified documented in this encounter Care Teams Airplane Charter Clerk Relationship Specialty Start Date End Date Carlita Villegas MD [address] [place] [phone] PCP - General 08/25/22 documented as of this encounter
--- OUTSIDE RECORDS SUMMARY | 2024-12-08 08:25 | XMS_ITS | Data Portability ---
Author Organization [facility], [address] Address [address] [place] [address] Care Team Providers Care Wreath And Garland Maker Hand Name Role Phone DOLLY CHAN Primary Care Provider Assessment No assessment recorded. Plan of Treatment Reminders Order Date Submit Date Provider Last Modified By Organization Details Last Modified Time Details Appointments None recorded. Lab None recorded. Referral emergency medicine referral - Hypertensiv e crisis. need to rule out acute [place]. [address] ([address]), [address] [place] [address], [address], 3 15:16:57 Procedures None recorded. Surgeries None recorded. Imaging None recorded. Medication Orders polymyxin B sulfate 10,000 unit-trimet hoprim 1 mg/mL eye drops 2022 023 [id number], [address] [place], [address], 3 15:02:44 Patient TargetsNo targets recorded. Patient Instructions Encounter Date Encounter Id Patient Instructions Last Modified By Organization Details Last Modified Time 08/25/2022 [id number] Apply warm, mois t compresses over closed [...] hypertensive crisis. need to rule out acute FL. Hypertensive crisis. need to rule out acute FL. Referring Physician: Enrico Galdamez, Urgent Care, Encounter Date: 08/25/2022 Problems Name Problem SNOMED Code Status Onset Date Resolution Date Notes Provider Name and Address Organization Details Recorded Time Osteoporosis 16832335 Active 2022 LORNE Watters [facility] 3 14:30:52 Hypertensive disorder 69346627 Active 2022 LORNE Watters [facility] 3 [...] Updated DateTime 3 160.02 cm 25.3 kg/m2 90306.7 1 g 96 % 96 % 65 [...] 08/25/2022 14:30:37 zoster live 3 completed Aviva Bradford null, PA - [facility] 08/25/2022 14:30:38 Influenza, adjuvanted, trivalent, PF 8 completed Aviva Litzy null, PA - [facility] 08/25/2022 14:30:38 Pneumococcal conjugate PCV 13 6 completed Aviva Bradford null, PA - [facility] 08/25/2022 14:30:38 Influenza, split virus, trivalent, PF 6 completed Aviva Litzy null, PA - [facility] 08/25/2022 14:30:38 Influenza, split virus, trivalent, preservative 0 completed Aviva Litzy null, PA - [facility] 08/25/2022 14:30:38 Influenza, high-dose, trivalent, PF 9 completed Aviva Litzy null, PA - [facility] 08/25/2022 14:30:38 Pneumococcal conjugate PCV20, polysaccharide [id number] conjugate, adjuvant, PF 2 completed Aviva Litzy null, PA - [facility] 08/25/2022 14:30:38 zoster recombinant 1 completed Aviva Litzy null, PA - [facility] 08/25/2022 14:30:38 pneumococcal polysaccharide PPV23 4 completed Aviva Litzy null, PA - [facility] 08/25/2022 14:30:38 Influenza, high-dose, trivalent, PF 7 completed Aviva Litzy null, PA - [facility] 08/25/2022 14:30:38 COVID-19, mRNA, LNP-S, PF, 100 mcg/0.5mL dose or 50 mcg/0.25mL dose 1 completed Aviva Litzy null, PA - [facility] 08/25/2022 14:30:38 Td (adult), 2 Lf tetanus toxoid, preservative free, adsorbed 8 completed Aviva Bradford null, PA - [facility] 08/25/2022 14:30:38 Influenza, high-dose, quadrivalent, PF 1 completed Aviva Litzy null, PA - [facility] 08/25/2022 14:30:38 Past Encounters Encounter ID Performer Location Encounter Start Date Encounter Closed Date Diagnosis/Indication Diagnosis SNOMED-CT Code Diagnosis ICD10 Code Diagnosis Note [id number] [address] [place] [address] 09/15/2020 10:30:46 09/15/2020 12:24:20 [id number] [address] [place] [address] 04/23/2021 09:58:30 04/23/2021 12:42:40 [id number] Enrico Rudolph, ASSOCIATE PROFESSOR OF MUSICOLOGY [address] [place] [address] 08/25/2022 13:36:13 08/25/2022 15:10:22 Acute conjunctivitis of right eye 2977119038 40936 H10.31 Hypertensive crisis 7068 06182 I16.9 Health Concerns Section Related Observation LastModified by Organization Detai ls LastModified Time None Recorded Concern Status LastModified by Organization Details LastModified Time None Recorded Advance Directives Directive None Recorded Payers Encounter Date Sequence Insurance Name Policy Number Policy Celestin Covered Member ID Celestin Member ID Guarantor Name 09/15/2020 1 [employer] - MEDICARE ADVANTAGE PLAN (MEDICARE REPLACEMENT HMO) [id number] Dayna Goldberg [id number] Dayna Goldberg 04/23/2021 1 [employer] - MEDICARE ADVANTAGE PLAN (MEDICARE REPLACEMENT HMO) [id number] Dayna Goldberg [id number] Dayna Goldberg 08/25/2022 1 [employer] - MEDICARE ADVANTAGE PLAN (MEDICARE REPLACEMENT HMO) [id number] Dayna Goldberg [id number] Dayna Goldberg Notes Date Note Type Note Provider Name and Address Organization Details Recorded Time 08/25/2022 text/html Eye problemsRepo rted bypatient.Notes:right eye redness more then left with yellow discharge. Also patient is hypertensive QU=923/120mmhg. Enrico Galdamez NP [address] [place], [address], [place] - [facility] 08/25/2022 15:08:45 OBGyn Episode No OBEpisode recorded.
--- OUTSIDE RECORDS SUMMARY | 2024-12-08 08:25 | XMS_ITS | Encounter Summary ---
Author Organization [facility] Address [address] [place] [address] Care Team Providers Care Apprentice Cosmetologist Name Role Phone Carlita Villegas MD Primary Care Provider [phone] Encounter Details Date Type Department Care Team (Late st Contact Info) Description 11/19/2024 Lab Requisition [facility] - Main Lab [address] [facility] [address] Giovanni Coffey MD [address] [place] [address], [phone] Urinary tract infection, site not specified Social History Tobacco Use Types Packs/Day Years [...] 10:00 AM EST Office Visit Endocrinology - [place] [address] [place] [address] Gisell Villegas PA [address] [place] [address] 08/26/2025 10:00 AM EST Office Visit Vascular Surgery - [place] [address] [place] [address] Priya Lopez MD [address] [facility] [address] [place] [address] documented as of this encounter Procedures Procedure Name Priority Date/Time Associated Diagnosis Comments URINALYSIS WITH REFLEX MICROSCOPIC Routine 11/18/2024 12:00 AM EDT Urinary tract infection, site not specified URINALYSIS WITH REFLEX MICROSCOPIC Routine 11/18/2024 12:00 AM EDT Urinary tract infection, site not specified CULTURE URINE Routine 11/18/2024 12:00 AM EDT Urinary tract infection, site not specified documented in this encounter Results * (ABNORMAL) Urinalysis with reflex microscopic (11/18/2024 12:00 AM EDT) Specific [place] Urine 1.020 1.003 - 1.030 LAB URINALYSIS - AUTOMATED METHOD 11/19/2024 12:49 PM [facility] pH, Urine 6.0 5.0 - 8.0 pH LAB URINALYSIS - AUTOMATED METHOD 11/19/2024 12:49 PM [facility] Leukocytes, Urine Moderate(A) Negative LAB URINALYSIS - AUTOMATED METHOD 11/19/2024 12:49 PM [facility] Nitrite, Urine Positive(A) Negative LAB URINALYSIS - AUTOMATED METHOD 11/19/2024 12:49 PM [facility] Protein, Urine 30(A) <=Trace mg/dL LAB URINALYSIS - AUTOMATED METHOD 11/19/2024 12:49 PM [facility] Glucose, Urine Negative Negative mg/dL LAB URINALYSIS - AUTOMATED METHOD 11/19/2024 12:49 PM [facility] Ketones, Urine Trace(A) Negative mg/dL LAB URINALYSIS - AUTOMATED METHOD 11/19/2024 12:49 PM EDT [facility] Urobilinogen , Urine 0.2 0.2 - 1.0 mg/dL LAB URINALYSIS - AUTOMATED METHOD 11/19/2024 12:49 PM EDT [facility] Bilirubin, Urine Negative Negative LAB URINALYSIS - AUTOMATED METHOD 11/19/2024 12:49 PM EDT [facility] Blood, Urine Small(A) Negative LAB URINALYSIS - AUTOMATED METHOD 11/19/2024 12:49 PM T [facility] RBC, Urine >100(H) 0 - 4 /HPF 11/19/2024 12:49 PM EDT [facility] WBC, Urine >100(H) 0 - 4 /HPF 11/19/2024 12:49 PM [facility] Squamous Epithelial, Urine 20 0 - 60 /LPF 11/19/2024 12:49 PM [facility] Bacteria, Urine Many(A) Negative /HPF 11/19/2024 12:49 PM [facility] Mucus, Urine Small None /HPF 11/19/2024 12:49 PM [facility] Urine Urine specimen obtained by clean catch procedure / Unknown Non-blood Collection / Unknown 11/18/2024 11/19/2024 12:13 PM EDT us Giovanni Coffey MD LAB URINE ORDERABLES Final Resul t [facility] [address] [place] [address], * (ABNORMAL) Culture urine (11/18/2024 12:00 AM EDT) Culture, Urine >100,000 CFU/mL Escherichia coli(A) DANO 11/21/2024 11:19 AM EDT [facility] Urine Urine specimen obtained by clean [...] MICROBIOLOGY - GENERAL ORDER ERWIN Final Result Performing Organization Address City/State/[facility] Co de Phone Number [facility] [address] [place] [address], documented in this encounter Visit Diagnoses Diagnosis Urinary tract infection, site not specified documented in this encounter Care Teams Apprentice Cosmetologist Relationship Specialty Start Date End Date Carlita Villegas MD [address] [place] [address] PCP - General 08/25/22 documented as of this encounter
--- OUTSIDE RECORDS SUMMARY | 2024-12-08 08:25 | XMS_ITS | Encounter Summary ---
Author Organization [facility] Address [address] [place] [address] Care Team Providers Care Supervisor Die Casting Name Role Phone Carlita Villegas MD Primary Care Provider [phone] Encounter Details Date Type Department Care Team (Late Contact Info) Description 10/27/2024 Lab Requisition [facility] - Main Lab [address] [facility] [place] [address] Giovanni Coffey MD [address] [place] [address], [phone] Essential (primary) hypertension; Hyperlipidemia, unspecified Social [...] 10:00 AM EST Office Visit Endocrinology - [place] [address] [place] [address] Gisell Villegas PA [address] [place] [address] 08/26/2025 10:00 AM EST Office Visit Vascular Surgery - [place] [address] [place] [address] Priya Lopez MD [address] [address] [place] [address] documented as of this encounter Procedures Procedure [...] mmol/L LAB CHEMISTRY METHOD 10/27/2024 12:56 PM [facility] Potassium 4.9 3.5 - 5.5 mmol/L LAB CHEMISTRY METHOD 10/27/2024 12:56 PM [facility] Comment:Hemolysis present Chloride 104 96 - 110 mmol/L LAB CHEMISTRY METHOD 10/27/2024 12:56 PM [facility] CO2 25 21 - 32 mmol/L LAB CHEMISTRY METHOD 10/27/2024 12:56 PM [facility] Anion Gap 8 3 - 11 LAB CHEMISTRY METHOD 10/27/2024 12:56 PM [facility] Glucose 80 70 - 100 mg/dL LAB CHEMISTRY METHOD 10/27/2024 12:56 PM [facility] BUN 18 5 - 25 mg/dL LAB CHEMISTRY METHOD 10/27/2024 12:56 PM [facility] Creatinine 0.69 0.50 - 1.10 mg/dL LAB CHEMISTRY METHOD 10/27/2024 12:56 PM [facility] eGFR 88 >=60 mL/min/1. 73m2 LAB CHEMISTRY METHOD 10/27/2024 12:56 PM EDT [facility] Comment:Calculation based on the??Chronic Kidney Disease Epidemiology Collaboration (CKD-EPI) equation refit??without adjustment for race. BUN/Creatinine Ratio 26.1 LAB CHEMISTRY METHOD 10/27/2024 12:56 PM EDT [facility] Calcium 8.9 8.5 - 10.5 mg/dL LAB CHEMISTRY METHOD 10/27/2024 12:56 PM T [facility] AST (SGOT) 67(H) 10 - 42 unit/L LAB CHEMISTRY METHOD 10/27/2024 12:56 PM [facility] Comment:Hemolysis present ALT (SGPT) 73(H) 10 - 60 unit/L LAB CHEMISTRY METHOD 10/27/2024 12:56 PM [facility] Alkaline Phosphatase 188(H) 42 - 121 unit/L LAB CHEMISTRY METHOD 10/27/2024 12:56 PM [facility] Total Protein 6.9 6.0 - 8.0 g/dL LAB CHEMISTRY METHOD 10/27/2024 12:56 PM [facility] Albumin 3.1(L) 3.2 - 5.0 g/dL LAB CHEMISTRY METHOD 10/27/2024 12:56 PM [facility] Total Bilirubin 0.5 0.0 - 1.4 mg/dL LAB CHEMISTRY METHOD 10/27/2024 12:56 PM T [facility] Blood Venous blood specimen / Unknown Venipuncture / Unknown 10/27/2024 6:25 AM EDT 10/27/2024 10:32 AM EDT us Giovanni Coffey MD LAB BLOOD ORDERABLES Final Resul t [facility] [address] [place] [address], * Complete blood count (10/27/2024 6:25 AM EDT) [facility] WBC 5.0 4.8 - 10.8 K/mcL LAB HEMETOLOGY METHOD 10/27/2024 11:30 AM [facility] RBC 3.80 3.80 - 4.80 M/mcL LAB HEMETOLOGY METHOD 10/27/2024 11:30 AM [facility] Hemoglobin 12.0 11.5 - 16.0 g/dL LAB HEMETOLOGY METHOD 10/27/2024 11:30 AM [facility] Hematocrit 36.9 35.0 - 47.0 % LAB HEMETOLOGY METHOD 10/27/2024 11:30 AM [facility] MCV 97.9 79.0 - 98.0 FL LAB HEMETOLOGY METHOD 10/27/2024 11:30 AM [facility] MCH 31.8 27.0 - 32.0 pcg LAB HEMETOLOGY METHOD 10/27/2024 11:30 AM [facility] MCHC 32.5 32.0 - 37.0 g/dL LAB HEMETOLOGY METHOD 10/27/2024 11:30 AM [facility] RDW 13.3 11.0 - 15.0 % LAB HEMETOLOGY METHOD 10/27/2024 11:30 AM [facility] Platelets 293 130 - 400 K/mcL LAB HEMETOLOGY METHOD 10/27/2024 11:30 AM [facility] MPV 11.0 7.0 - 11.0 FL LAB HEMETOLOGY METHOD 10/27/2024 11:30 AM [facility] NRBC 0.0 <1.0 % LAB HEMETOLOGY METHOD 10/27/2024 11:30 AM [facility] NRBC Absolute 0.00 <0.10 K/mcL LAB HEMETOLOGY METHOD 10/27/2024 11:30 AM EDT [facility] Blood Venous blood specimen / Unknown Venipuncture / Unknown 10/27/2024 6:25 AM EDT 10/27/2024 10:32 AM EDT us Giovanni Coffey MD LAB BLOOD ORDERABLES Final Resul t [facility] [address] [place] [address], documented in this encounter Visit Diagnoses Diagnosis Essential (primary) hypertension Unspecified essential hypertension Hyperlipidemia, unspecified documented in this encounter Care Teams Supervisor Die Casting Relationship Specialty Start Date End Date Carlita Villegas MD [address] [place] [address] PCP - General 08/25/22 documented as of this encounter
--- OUTSIDE RECORDS SUMMARY | 2024-12-08 08:26 | XMS_ITS | Patient Health Record ---
Author Organization [facility] Address [address] [facility] [address] [place] [address] Support Name Relationship Address Phone KEVIN PFEIFFER Guarantor Unknown [phone] Reason For Referral No Information Medications Medication SIG (Take, Route, Frequency, Duration) Notes Start Date End Date Status Calcium-Carb 600 + D 1 ORAL daily for -3 [facility] 2 Active Anita-D 12 Hour 60-120 1 ORAL twice daily for -3 [facility] 01/12/2012 Active Evista 60MG 1 ORAL daily for -3 [facility] 08/30/2012 Active Multivitamins 1 ORAL daily for -3 [facility] 01/12/2012 Active Problems Problem Type SNOMED Code ICD Code Onset Dates Problem Status W/U Status Risk Notes Problem Osteoarthritis (959349746) Osteoarthrosis, unspecified whether generalized or localized, unspecified site (715.90) Active confirmed Major Problem Osteoporosis (62706663) Unspecified osteoporosis (733.00) Active confirmed Major Problem Gynecological examination normal (820870199075682) Routine gynecological examination (V72.31) Active confirmed Diag Plan Of Treatment No Information Insurance Providers Payer Name Payer Address Payer Phone Subscriber Number Group Number Insured Name Patient Relationship to Insured Coverage Start Date Coverage End Date [employer] [facility] [address] [place] [address] [id number] KEVIN PFEIFFER Self - patient is the insured
== END 2024-12-08 08:11 | disposition home or self-care (01) ==
LOC: HO.HOSX 08:10
DX: M25.559 Pain in unspecified hip (principal); M25.531 Pain in right wrist; S32.10XA Unspecified fracture of sacrum, initial encounter for closed fracture; S32.599A Other specified fracture of unspecified pubis, initial encounter for closed fracture; S52.92XB Unspecified fracture of left forearm, initial encounter for open fracture type I or II; S52.202B Unspecified fracture of shaft of left ulna, initial encounter for open fracture type I or II
CPT/HCPCS: 72170; 73110; 99212

== ENCOUNTER 2024-12-08 13:43 | Outpatient (AMB) | payer MEDICARE, SELFPAY ==
--- NOTE | 2024-12-08 13:50 | MHC.OFFVIS ---
Vital Signs 12/08/24 13:51 Height 5 ft 3 in Weight 140 lb BMI 24.8 Intake Visit Reasons: PO-I&D &ORIF of RT distal radius and ulna-10/13/24 Intake Note: Dayna is an 79 year old female who presents today post-operatively status post Right Distal Radius and Ulnar Shaft ORIF and I & D 10/13/2024. Patient reports she is doing well. Denies numbness, tingling, finger locking. Patient is taking Oxycodone PRN with relief of pain. Patient continues to wear velcro wrist brace like a cast. Allergies azithromycin Adverse Reaction (Verified 12/08/24 13:53) Stomach Upset doxycycline Adverse Reaction (Verified 12/08/24 13:53) Gastrointestinal Upset sulfamethoxazole [From Bactrim] Adverse Reaction (Verified 12/08/24 13:53) Stomach Upset trimethoprim [From Bactrim] Adverse Reaction (Verified 12/08/24 13:53) Stomach Upset HPI HPI PO-I&D &ORIF of RT distal radius and ulna-10/13/24: Details: Dayna is an 79 year old female who presents today post-operatively status post Right Distal Radius and Ulnar Shaft ORIF and I & D 10/13/2024. Patient reports she is doing well. Denies numbness, tingling, finger locking. Patient is taking Oxycodone PRN with relief of pain. Patient continues to wear velcro wrist brace like a cast. [facility] Medical History Enlarged aorta Osteoporosis Allergies Elevated cholesterol PONV (postoperative nausea and vomiting) HTN (hypertension) Surgical History Hx of colonoscopy Hx of left cataract extraction Hx of hysterectomy Hx of tonsillectomy Social History Household Members: None Housing: House Do you presently have visiting nurse or other home services: No Unable to assess alcohol history related to: Unknown Alcohol intake: never Patient Tobacco Use Status: Former Tobacco user Second Hand Smoke Exposure: No Advance Directives Date on File: 11/29/23 service: No Current occupational status: retired Current occupation: right hand dominant Review of Systems Const All systems reviewed & are unremarkable except as noted in HPI and below Physical Exam Vital Signs: BMI result Body Mass Index 24.8 Extrem Other: Patient is alert, oriented, and in no acute distress. Neuro: Normal sensation of the tips of all digits of the right hand at this time Vascular: Cap refill brisk Pain: No tenderness to palpation about fracture sites on the right wrist ROM: Patient is able to make closed fist and extend all digits right fully Skin: Well approximated well healing incision site noted on the volar right wrist Well approximated and well healing laceration site on the ulnar right wrist Sutures in place Pin site clean, dry, intact, no evidence of infection General: No ecchymosis, erythema, or evidence of infection. Psych: Appears grossly normal Affect normal Attitude cooperative Results Reviewed Results Reviewed: X-rays obtained in the office today and independently reviewed by me, Luke López PA-C, demonstrate surgically reduced fractures of the right distal radius and distal ulna with all orthopedic hardware in place and in satisfactory clinical alignment and with early evidence of interval bony healing Assessment & Plan Assessment & Plan (1) Fracture of radius and ulna, open: Code(s): S52.90XB - Unspecified fracture of unspecified forearm, initial encounter for open fracture type I or II; S52.209B - Unspecified fracture of shaft of unspecified ulna, initial encounter for open fracture type I or II Category: Medical Plan 1. Open right distal rupture 2. Open right distal ulna fracture Status post ORIF DOS 10/13/2024 Patient appears to be recovering well postoperatively Patient was educated about the typical recovery course At this time, patient was removed from cast and placed into a Velcro wrist splint Sutures removed, steroids applied Patient was educated that she should slightly increased to 3-4 lb weight limit in the right hand Velcro wrist splint to be worn with high-risk daytime activities Patient was amenable to this plan Follow-up in 4 weeks with repeat x-rays, sooner with acute concerns Coding Level of Care Code Global (57580) Diagnoses Fracture of radius and ulna, open S52.90XB; S52.209B
[2024-12-08 13:51] VITALS: BMI 24.8
--- OUTSIDE RECORDS SUMMARY | 2024-12-08 15:18 | XMS_ITS | Encounter Summary ---
Author Organization [facility] Address [address] [place] [address] Care Team Providers Care Edi Specialist Name Role Phone Carlita Villegas MD Primary Care Provider [phone] Encounter Details Date Type Department Care Team (Late Contact Info) Description 11/01/2024 Lab Requisition [facility] - Main Lab [address] [facility] [place] [address] Giovanni Coffey MD [address] [place] [address], [phone] Essential (primary) hypertension; Hyperlipidemia, unspecified Social [...] 10:00 AM EST Office Visit Endocrinology - [place] [address] [place] [address] Gisell Villegas PA [address] [place] [address] 08/26/2025 10:00 AM EST Office Visit Vascular Surgery - [place] [address] [place] [address] Priya Lopez MD [address] [place] [address] documented as of this encounter Procedures Procedure [...] mmol/L LAB CHEMISTRY METHOD 11/03/2024 12:06 PM [facility] Potassium 4.2 3.5 - 5.5 mmol/L LAB CHEMISTRY METHOD 11/03/2024 12:06 PM [facility] Chloride 105 96 - 110 mmol/L LAB CHEMISTRY METHOD 11/03/2024 12:06 PM [facility] CO2 27 21 - 32 mmol/L LAB CHEMISTRY METHOD 11/03/2024 12:06 PM [facility] Anion Gap 8 3 - 11 LAB CHEMISTRY METHOD 11/03/2024 12:06 PM [facility] Glucose 83 70 - 100 mg/dL LAB CHEMISTRY METHOD 11/03/2024 12:06 PM [facility] BUN 14 5 - 25 mg/dL LAB CHEMISTRY METHOD 11/03/2024 12:06 PM [facility] Creatinine 0.59 0.50 - 1.10 mg/dL LAB CHEMISTRY METHOD 11/03/2024 12:06 PM [facility] eGFR 91 >=60 mL/min/1. 73m2 LAB CHEMISTRY METHOD 11/03/2024 12:06 PM [facility] Comment:Calculation based on the??Chronic Kidney Disease Epidemiology Collaboration (CKD-EPI) equation refit??without adjustment for race. BUN/Creatinine Ratio 23.7 LAB CHEMISTRY METHOD 11/03/2024 12:06 PM [facility] Calcium 9.3 8.5 - 10.5 mg/dL LAB CHEMISTRY METHOD 11/03/2024 12:06 PM [facility] AST (SGOT) 27 10 - 42 unit/L LAB CHEMISTRY METHOD 11/03/2024 12:06 PM [facility] ALT (SGPT) 42 10 - 60 unit/L LAB CHEMISTRY METHOD 11/03/2024 12:06 PM [facility] Alkaline Phosphatase 171(H) 42 - 121 unit/L LAB CHEMISTRY METHOD 11/03/2024 12:06 PM [facility] Total Protein 6.5 6.0 - 8.0 g/dL LAB CHEMISTRY METHOD 11/03/2024 12:06 PM [facility] Albumin 3.0(L) 3.2 - 5.0 g/dL LAB CHEMISTRY METHOD 11/03/2024 12:06 PM [facility] Total Bilirubin 0.4 0.0 - 1.4 mg/dL LAB CHEMISTRY METHOD 11/03/2024 12:06 PM [facility] Blood Venous blood specimen / Unknown Venipuncture / Unknown 11/03/2024 5:42 AM EDT 11/03/2024 10:29 AM EDT us Giovanni Coffey MD LAB BLOOD ORDERABLES Final Resul t [facility] [address] [place] [address], [place] [phone] * (ABNORMAL) Complete blood count (11/03/2024 5:42 AM EDT) WBC 5.5 4.8 - 10.8 K/mcL LAB HEMETOLOGY METHOD 11/03/2024 11:18 AM [facility] RBC 3.60(L) 3.80 - 4.80 M/mcL LAB HEMETOLOGY METHOD 11/03/2024 11:18 AM [facility] Hemoglobin 11.2(L) 11.5 - 16.0 g/dL LAB HEMETOLOGY METHOD 11/03/2024 11:18 AM [facility] Hematocrit 34.7(L) 35.0 - 47.0 % LAB HEMETOLOGY METHOD 11/03/2024 11:18 AM [facility] MCV 96.9 79.0 - 98.0 FL LAB HEMETOLOGY METHOD 11/03/2024 11:18 AM [facility] MCH 31.3 27.0 - 32.0 pcg LAB HEMETOLOGY METHOD 11/03/2024 11:18 AM [facility] MCHC 32.3 32.0 - 37.0 g/dL LAB HEMETOLOGY METHOD 11/03/2024 11:18 AM [facility] RDW 13.3 11.0 - 15.0 % LAB HEMETOLOGY METHOD 11/03/2024 11:18 AM [facility] Platelets 253 130 - 400 K/mcL LAB HEMETOLOGY METHOD 11/03/2024 11:18 AM [facility] MPV 10.4 7.0 - 11.0 FL LAB HEMETOLOGY METHOD 11/03/2024 11:18 AM [facility] NRBC 0.0 <1.0 % LAB HEMETOLOGY METHOD 11/03/2024 11:18 AM [facility] NRBC Absolute 0.00 <0.10 K/mcL LAB HEMETOLOGY METHOD 11/03/2024 11:18 AM [facility] Blood Venous blood specimen / Unknown Venipuncture / Unknown 11/03/2024 5:42 AM EDT 11/03/2024 10:29 AM EDT us Giovanni Coffey MD LAB BLOOD ORDERABLES Final Resul t [facility] [address] [place] [address], documented in this encounter Visit Diagnoses Diagnosis Essential (primary) hypertension Unspecified essential hypertension Hyperlipidemia, unspecified documented in this encounter Care Teams Edi Specialist Relationship Specialty Start Date End Date Carlita Villegas MD [address] [place] [phone] PCP - General 08/25/22 documented as of this encounter
== END 2024-12-08 14:22 | disposition home or self-care (01) ==
LOC: HO.HOS 13:44
DX: S52.90 Unspecified fracture of unspecified forearm (principal); S52.209B Unspecified fracture of shaft of unspecified ulna, initial encounter for open fracture type I or II
CPT/HCPCS: 99024

== ENCOUNTER 2024-12-08 13:43 | Outpatient (AMB) | payer MEDICARE, SELFPAY ==
[2024-12-08 13:52] VITALS: BMI 24.8
--- NOTE | 2024-12-08 13:52 | MHC.OFFVIS ---
Vital Signs 12/08/24 13:52 Height 5 ft 3 in Weight 140 lb BMI 24.8 Intake Visit Reasons: FC-pelvic fractures on the right side Intake Note: Dayna is an 79 year old female who presents today for a fracture care visit for her right sacral ala and superior pubic ramus fractures, DOI: 10/10/24. At her last visit on 11/14/24, patient was informed that she should continue non-weight bearing for 2 more months to allow for bony healing and to prevent displacement of her fractures and therefore her pelvis. Patient reports today she is doing chair excercises lifting 7 lbs, 2 ft high. Patient would like to know when she can begin bearing weight. Allergies azithromycin Adverse Reaction (Verified 12/08/24 13:53) Stomach Upset doxycycline Adverse Reaction (Verified 12/08/24 13:53) Gastrointestinal Upset sulfamethoxazole [From Bactrim] Adverse Reaction (Verified 12/08/24 13:53) Stomach Upset trimethoprim [From Bactrim] Adverse Reaction (Verified 12/08/24 13:53) Stomach Upset HPI HPI FC-pelvic fractures on the right side: Details: Dayna is an 79 year old female who presents today for a fracture care visit for her right sacral ala and superior pubic ramus fractures, DOI: 10/10/24. At her last visit on 11/14/24, patient was informed that she should continue non-weight bearing for 2 more months to allow for bony healing and to prevent displacement of her fractures and therefore her pelvis. Patient reports today she is doing chair excercises lifting 7 lbs, 2 ft high. Patient would like to know when she can begin bearing weight. PFSH Medical History Enlarged aorta Osteoporosis Allergies Elevated cholesterol PONV (postoperative nausea and vomiting) HTN (hypertension) Surgical History Hx of colonoscopy Hx of left cataract extraction Hx of hysterectomy Hx of tonsillectomy Social History Household Members: None Housing: House Do you presently have visiting nurse or other home services: No Unable to assess alcohol history related to: Unknown Alcohol intake: never Patient Tobacco Use Status: Former Tobacco user Second Hand Smoke Exposure: No Advance Directives Date on File: 11/29/23 service: No Current occupational status: retired Current occupation: right hand dominant Review of Systems Const All systems reviewed & are unremarkable except as noted in HPI and below Physical Exam Vital Signs: BMI result Body Mass Index 24.8 Extrem Other: Patient's right hip, pelvis, upper right leg normal to inspection No erythema, ecchymosis, edema noted No lacerations, abrasions, open areas No evidence of infection Patient was able to flex and extend the digits of the right foot fully and without difficulty Distal sensation intact Capillary refill brisk Results Reviewed Results Reviewed: X-rays obtained in the office today and independently reviewed by me, Luke López PA-C, demonstrate nondisplaced fractures of right superior pubic ramus and right sacral ala in very similar alignment to previous x-rays taken in the emergency department with evidence of good interval bony healing. Assessment & Plan Assessment & Plan (1) Fracture of sacrum: Code(s): S32.10XA - Unspecified fracture of sacrum, initial encounter for closed fracture Category: Medical (2) Closed fracture of pubic ramus: Code(s): S32.599A - Other specified fracture of unspecified pubis, initial encounter for closed fracture Category: Medical Plan 1. Right sacral ala fracture 2. Right superior pubic ramus fracture Date of injury 10/10/2024 Patient is educated about these injuries Patient was educated about the typical recovery course At this time, patient was informed that she should continue nonweightbearing for a further 4 weeks to allow for bony healing and to prevent displacement of her fractures and therefore her pelvis Patient expresses understanding of this and is amenable to this plan Follow-up in 4 weeks with repeat x-rays for reassessment, sooner with any acute concerns Coding Level of Care Code Global (55822) Diagnoses Fracture of sacrum S32.10XA Closed fracture of pubic ramus S32.599A
--- OUTSIDE RECORDS SUMMARY | 2024-12-08 15:16 | XMS_ITS | Encounter Summary ---
Author Organization [facility] Address [address] [place] [address] Care Team Providers Care Concession Attendant Name Role Phone Carlita Villegas MD Primary Care Provider [phone] Encounter Details Date Type Department Care Team (Late Contact Info) Description 11/07/2024 Lab Requisition [facility] - Main Lab [address] [facility] [address] Giovanni Coffey MD [address] [place] [address], [phone] Essential (primary) hypertension Social History Tobacco [...] 10:00 AM EST Office Visit Endocrinology - [place] [address] [place] [address] Gisell Villegas PA [address] [place] [address] 08/26/2025 10:00 AM EST Office Visit Vascular Surgery - [place] [address] [place] [phone] Priya Lopez MD [address] [place] [address] documented as of this encounter Procedures Procedure Name Priority Date/Time Associated Diagnosis Comments URINALYSIS WITH REFLEX MICROSCOPIC Routine 11/06/2024 9:28 PM EDT Essential (primary) hypertension URINALYSIS WITH REFLEX MICROSCOPIC Routine 11/06/2024 9:28 PM EDT Essential (primary) hypertension CULTURE URINE Routine 11/06/2024 9:28 PM EDT Essential (primary) hypertension documented in this encounter Results * (ABNORMAL) Urinalysis with reflex microscopic (11/06/2024 9:28 PM EDT) Specific [place] Urine 1.014 1.003 - 1.030 LAB URINALYSIS - AUTOMATED METHOD 11/07/2024 11:48 AM [facility] pH, Urine 6.0 5.0 - 8.0 pH LAB URINALYSIS - AUTOMATED METHOD 11/07/2024 11:48 AM [facility] Leukocytes, Urine Large(A) Negative LAB URINALYSIS - AUTOMATED METHOD 11/07/2024 11:48 AM [facility] Nitrite, Urine Positive(A) Negative LAB URINALYSIS - AUTOMATED METHOD 11/07/2024 11:48 AM [facility] Protein, Urine 30(A) <=Trace mg/dL LAB URINALYSIS - AUTOMATED METHOD 11/07/2024 11:48 AM [facility] Glucose, Urine Negative Negative mg/dL LAB URINALYSIS - AUTOMATED METHOD 11/07/2024 11:48 AM [facility] Ketones, Urine Negative Negative mg/dL LAB URINALYSIS - AUTOMATED METHOD 11/07/2024 11:48 AM [facility] Urobilinogen , Urine 0.2 0.2 - 1.0 mg/dL LAB URINALYSIS - AUTOMATED METHOD 11/07/2024 11:48 AM [facility] Bilirubin, Urine Negative Negative LAB URINALYSIS - AUTOMATED METHOD 11/07/2024 11:48 AM [facility] Blood, Urine Large(A) Negative LAB URINALYSIS - AUTOMATED METHOD 11/07/2024 11:48 AM [facility] RBC, Urine 7.7(H) 0 - 4 /HPF LAB URINALYSIS - AUTOMATED METHOD 11/07/2024 11:48 AM [facility] WBC, Urine 357.6(H) 0 - 4 /HPF LAB URINALYSIS - AUTOMATED METHOD 11/07/2024 11:48 AM [facility] Squamous Epithelial, Urine 12 0 - 60 /LPF LAB URINALYSIS - AUTOMATED METHOD 11/07/2024 11:48 AM [facility] Bacteria, Urine Many(A) Negative /HPF LAB URINALYSIS - AUTOMATED METHOD 11/07/2024 11:48 AM [facility] Hyaline Casts, Urine 0.4 0 - 3 /LPF LAB URINALYSIS - AUTOMATED METHOD 11/07/2024 11:48 AM [facility] Urine Urine specimen from urethra / Unknown Non-blood Collection / Unknown 11/06/2024 9:28 PM EDT 11/07/2024 10:51 AM EDT us Giovanni Coffey MD LAB URINE ORDERABLES Final Resul t [facility] [address] [place] [address], * (ABNORMAL) Culture urine (11/06/2024 9:28 PM EDT) Culture, Urine >100,000 CFU/mL Escherichia coli(A) DNAO 11/09/2024 9:22 AM EDT [facility] Urine Urine specimen [...] MICROBIOLOGY - GENERAL ORDER ERWIN Final Result [facility] [address] [place] [address], documented in this encounter Visit Diagnoses Diagnosis Essential (primary) hypertension Unspecified essential hypertension documented in this encounter Care Teams Concession Attendant Relationship Specialty Start Date End Date Carlita Vilelgas MD [address] [place] [id number] PCP - General 08/25/22 documented as of this encounter
--- OUTSIDE RECORDS SUMMARY | 2024-12-08 15:17 | XMS_ITS | Encounter Summary ---
Author Organization [facility] Address [address] [place] [address] Care Team Providers Care Linux Security Administrator Name Role Phone Carlita Villegas MD Primary Care Provider [phone] Encounter Details Date Type Department Care Team (Late st Contact Info) Description 12/04/2024 Lab Requisition [facility] - Main Lab [address] [facility] [place] [address] Giovanni Coffey MD [address] [place] [address], [phone] Essential (primary) hypertension; Hyperlipidemia, unspecified; Encounter [...] 10:00 AM EST Office Visit Endocrinology - [place] [address] [place], [place] [phone] Gisell Villegas PA [address] [place], [place] 08/26/2025 10:00 AM EST Office Visit Vascular Surgery - [place] [address] [place] [address] Priya Lopez MD [address] [place] [address] documented as of this encounter Procedures Procedure [...] LAB CHEMISTRY METHOD 12/05/2024 1:57 PM EDT [facility] Blood Venous blood specimen / Unknown Venipuncture / Unknown 12/05/2024 7:00 AM EDT 12/05/2024 10:24 AM EDT us Giovanni Coffey MD LAB BLOOD ORDERABLES Final Resul t [facility] [address] [place] [address], * (ABNORMAL) Comprehensive metabolic panel (12/05/2024 7:00 AM EDT) Sodium 141 133 - 145 mmol/L LAB CHEMISTRY METHOD 12/05/2024 1:[address] [facility] Potassium 3.9 3.5 - 5.5 mmol/L LAB CHEMISTRY METHOD 12/05/2024 1:[address] [facility] Chloride 107 96 - 110 mmol/L LAB CHEMISTRY METHOD 12/05/2024 1:[address] [facility] CO2 29 21 - 32 mmol/L LAB CHEMISTRY METHOD 12/05/2024 1:[address] [facility] Anion Gap 5 3 - 11 LAB CHEMISTRY METHOD 12/05/2024 1:[address] [facility] Glucose 86 70 - 100 mg/dL LAB CHEMISTRY METHOD 12/05/2024 1:[address] [facility] BUN 11 5 - 25 mg/dL LAB CHEMISTRY METHOD 12/05/2024 1:[address] [facility] Creatinine 0.57 0.50 - 1.10 mg/dL LAB CHEMISTRY METHOD 12/05/2024 1:[address] [facility] eGFR 92 >=60 mL/min/1. 73m2 LAB CHEMISTRY METHOD 12/05/2024 1:[address] [facility] Comment:Calculation based on the??Chronic Kidney Disease Epidemiology Collaboration (CKD-EPI) equation refit??without adjustment for race. BUN/Creatinine Ratio 19.3 LAB CHEMISTRY METHOD 12/05/2024 1:[address] [facility] Calcium 8.4(L) 8.5 - 10.5 mg/dL LAB CHEMISTRY METHOD 12/05/2024 1:[address] [facility] AST (SGOT) 14 10 - 42 unit/L LAB CHEMISTRY METHOD 12/05/2024 1:[address] [facility] ALT (SGPT) 14 10 - 60 unit/L LAB CHEMISTRY METHOD 12/05/2024 1:02 PM EDT [facility] Alkaline Phosphatase 61 42 - 121 unit/L LAB CHEMISTRY METHOD 12/05/2024 1:02 PM EDT [facility] Total Protein 6.5 6.0 - 8.0 g/dL LAB [facility]STR[facility] Albumin 3.2 3.2 - 5.0 g/dL LAB CHEMISTRY METHOD 12/05/2024 1:02 PM EDT [facility] Total Bilirubin 0.4 0.0 - 1.4 mg/dL LAB CHEMISTRY METHOD 12/05/2024 1:[address] [facility] Blood Venous blood specimen / Unknown Venipuncture / Unknown 12/05/2024 7:00 AM EDT 12/05/2024 10:24 AM EDT us Giovanni Coffey MD LAB BLOOD ORDERABLES Final Resul t [facility] [address] [place] [address], * (ABNORMAL) Complete blood count (12/05/2024 7:00 AM EDT) WBC 3.4(L) 4.8 - 10.8 K/mcL LAB HEMETOLOGY METHOD 12/05/2024 11:30 AM EDT [facility] RBC 3.60(L) 3.80 - 4.80 M/mcL LAB HEMETOLOGY METHOD [facility] Hemoglobin 11.1(L) 11.5 - 16.0 g/dL LAB HEMETOLOGY METHOD 12/05/2024 11:[address] [facility] Hematocrit 34.7(L) 35.0 - 47.0 % LAB HEMETOLOGY METHOD 12/05/2024 11:30 AM EDT [facility] MCV 96.9 79.0 - 98.0 FL LAB HEMETOLOGY METHOD 12/05/2024 11:30 AM EDT [facility] MCH 31.0 27.0 - 32.0 pcg LAB HEMETOLOGY METHOD [facility] MCHC 32.0 32.0 - 37.0 g/dL LAB HEMETOLOGY METHOD 12/05/2024 11:30 AM EDT [facility] RDW 13.5 11.0 - 15.0 % LAB HEMETOLOGY METHOD 12/05/2024 11:30 AM T [facility] Platelets 203 130 - 400 K/mcL LAB HEMETOLOGY METHOD 12/05/2024 11:[address] [facility] MPV 10.7 7.0 - 11.0 FL LAB HEMETOLOGY METHOD 12/05/2024 11:[address] [facility] NRBC 0.0 <1.0 % LAB HEMETOLOGY METHOD 12/05/2024 11:30 AM T [facility] NRBC Absolute 0.00 <0.10 K/mcL LAB HEMETOLOGY METHOD 12/05/2024 11:[address] [facility] Blood Venous blood specimen / Unknown Venipuncture / Unknown 12/05/2024 7:00 AM EDT 12/05/2024 10:24 AM EDT us Giovanni Coffey MD LAB BLOOD ORDERABLES Final Resul t [facility] [address] [place] [address], * (ABNORMAL) C-reactive protein (12/05/2024 7:00 AM EDT) C-Reactive Protein 1.16(H) <=0.50 mg/dL LAB CHEMISTRY METHOD 12/05/2024 1:12 PM EDT [facility] Blood Venous blood specimen / Unknown Venipuncture / Unknown 12/05/2024 7:00 AM EDT 12/05/2024 10:24 AM EDT us Giovanni Coffey MD LAB BLOOD ORDERABLES Final Resul t [facility] [address] [place] [address], documented in this encounter Visit Diagnoses Diagnosis Essential (primary) hypertension Unspecified essential hypertension Hyperlipidemia, unspecified Encounter for other orthopedic aftercare Vitamin D deficiency, unspecified documented in this encounter Care Teams Linux Security Administrator Relationship Specialty Start Date End Date Carlita Villegas MD [address] [place] [id number] PCP - General 08/25/22 documented as of this encounter
--- OUTSIDE RECORDS SUMMARY | 2024-12-08 15:17 | XMS_ITS | Encounter Summary ---
Author Organization [facility] Address [address] [place] [address] Care Team Providers Care Client Program Manager Name Role Phone Carlita Villegas MD Primary Care Provider [phone] Encounter Details Date Type Department Care Team (Late st Contact Info) Description 11/06/2024 Lab Requisition [facility] - Main Lab [address] [facility] [place] [address] Giovanni Coffey MD [address] [place] [address], [phone] Essential (primary) hypertension; Hyperlipidemia, unspecified; Unspecified [...] 10:00 AM EST Office Visit Endocrinology - [place] [address] [place], [place] [phone] Gisell Villegas PA [address] [place], [place] 08/26/2025 10:00 AM EST Office Visit Vascular Surgery - [place] [address] [place] [address] Priya Lopez MD [address] [place] [address] documented as of this encounter Procedures Procedure [...] mmol/L LAB CHEMISTRY METHOD 11/07/2024 11:[address] [facility] Potassium 4.0 3.5 - 5.5 mmol/L LAB CHEMISTRY METHOD 11/07/2024 11:[address] [facility] Chloride 105 96 - 110 mmol/L LAB CHEMISTRY METHOD 11/07/2024 11:[address] [facility] CO2 28 21 - 32 mmol/L LAB CHEMISTRY METHOD 11/07/2024 11:[address] [facility] Anion Gap 6 3 - 11 LAB CHEMISTRY METHOD 11/07/2024 11:[address] [facility] Glucose 86 70 - 100 [...] MD LAB BLOOD ORDERABLES Final Resul t [facility] [address] [place] [address], * (ABNORMAL) Complete blood count (11/07/2024 8:03 AM EDT) WBC 4.9 4.8 - 10.8 K/mcL LAB HEMETOLOGY METHOD 11/07/2024 11:[address] [facility] RBC 3.70(L) 3.80 - 4.80 M/mcL LAB HEMETOLOGY METHOD 11/07/2024 11:[address] [facility] Hemoglobin 11.5 11.5 - 16.0 g/dL LAB HEMETOLOGY METHOD 11/07/2024 11:[address] [facility] Hematocrit 35.7 35.0 - 47.0 % LAB HEMETOLOGY METHOD 11/07/2024 11:[address] [facility] MCV 96.7 79.0 - 98.0 FL LAB HEMETOLOGY METHOD 11/07/2024 11:[address] [facility] MCH 31.2 27.0 - 32.0 pcg LAB HEMETOLOGY METHOD 11/07/2024 11:[address] [facility] MCHC 32.2 32.0 - 37.0 g/dL LAB HEMETOLOGY METHOD 11/07/2024 11:[address] [facility] RDW 13.4 11.0 - 15.0 % LAB HEMETOLOGY METHOD 11/07/2024 11:[address] [facility] Platelets 222 130 - 400 K/mcL LAB HEMETOLOGY METHOD 11/07/2024 11:[address] [facility] MPV 10.4 7.0 - 11.0 FL LAB HEMETOLOGY METHOD 11/07/2024 11:[address] [facility] NRBC 0.0 <1.0 % LAB HEMETOLOGY METHOD 11/07/2024 11:[address] [facility] NRBC Absolute 0.00 <0.10 K/mcL LAB HEMETOLOGY METHOD 11/07/2024 11:[address] [facility] Blood Venous blood specimen / Unknown Venipuncture / Unknown 11/07/2024 8:03 AM EDT 11/07/2024 10:40 AM EDT Giovanni Coffey MD LAB BLOOD ORDERABLES Final Resul t Performing Organization Address City/[facility]/ZIP Co de Phone Number [facility] [address] [place] [address], [place] [phone] * (ABNORMAL) C-reactive protein (11/07/2024 8:03 AM EDT) C-Reactive Protein 0.97(H) <=0.50 mg/dL LAB CHEMISTRY METHOD 11/07/2024 11:[address] [facility] Blood Venous blood specimen / Unknown Venipuncture / Unknown 11/07/2024 8:03 AM EDT 11/07/2024 10:42 AM EDT Giovanni Coffey MD LAB BLOOD ORDERABLES Final Resul t Performing Organization Address City/[facility]/ZIP Co de Phone Number [facility] [address] [place] [address], [place] [phone] documented in this encounter Visit Diagnoses Diagnosis Essential (primary) hypertension Unspecified essential hypertension Hyperlipidemia, unspecified Unspecified osteoarthritis, unspecified site Encounter for other orthopedic aftercare documented in this encounter Care Teams Client Program Manager Relationship Specialty Start Date End Date Carlita Villegas MD [address] [place] [address] PCP - General 08/25/22 documented as of this encounter
--- OUTSIDE RECORDS SUMMARY | 2024-12-08 15:17 | XMS_ITS | Encounter Summary ---
Author Organization [facility] Address [address] [place] [address] Care Team Providers Care Recording Studio Set Up Worker Name Role Phone Carlita Villegas MD Primary Care Provider [phone] Encounter Details Date Type Department Care Team (Late Contact Info) Description 10/17/2024 Lab Requisition [facility] - Main Lab 299 [facility] [place] [address] Giovanni Coffey MD [address] [place] [address], [phone] Essential (primary) hypertension; Hyperlipidemia, unspecified Social [...] 10:00 AM EST Office Visit Endocrinology - [place] [address] [place] [address] Gisell Villegas PA [address] [place] [address] 08/26/2025 10:00 AM EST Office Visit Vascular Surgery - [place] [address] [place] [address] Priya Lopez MD [address] [address] [place] [address] documented as of this encounter Procedures Procedure [...] LAB CHEMISTRY METHOD 10/17/2024 11:41 AM EDT [facility] Blood Venous blood specimen / Unknown Venipuncture / Unknown 10/17/2024 8:47 AM EDT 10/17/2024 10:31 AM EDT us Giovanni Coffey MD LAB BLOOD ORDERABLES Final Resul t [facility] [address] [place] [address], * Lipid panel with reflex to direct [...] LAB CHEMISTRY METHOD 10/17/2024 11:42 AM T [facility] Non HDL Chol. (LDL+VLDL) 118 <145 mg/dL LAB CHEMISTRY METHOD 10/17/2024 11:42 AM [facility] Chol/HDL Ratio 3.1 0.0 - 4.4 LAB CHEMISTRY METHOD 10/17/2024 11:42 AM [facility] Blood Venous blood specimen / Unknown Venipuncture / Unknown 10/17/2024 8:47 AM EDT 10/17/2024 10:31 AM EDT us Giovanni Coffey MD LAB BLOOD ORDERABLES Final Resul t [facility] [address] [place] [address], [place] [phone] * (ABNORMAL) Comprehensive metabolic panel (10/17/2024 8:47 AM EDT) Sodium 138 133 - 145 mmol/L LAB CHEMISTRY METHOD 10/17/2024 11:41 AM T [facility] Potassium 3.8 3.5 - 5.5 mmol/L LAB CHEMISTRY METHOD 10/17/2024 11:41 AM [facility] Chloride 105 96 - 110 mmol/L LAB CHEMISTRY METHOD 10/17/2024 11:41 AM [facility] CO2 28 21 - 32 mmol/L LAB CHEMISTRY METHOD 10/17/2024 11:41 AM [facility] Anion Gap 5 3 - 11 LAB CHEMISTRY METHOD 10/17/2024 11:41 AM [facility] Glucose 128(H) 70 - 100 mg/dL LAB CHEMISTRY METHOD 10/17/2024 11:41 AM [facility] BUN 16 5 - 25 mg/dL LAB CHEMISTRY METHOD 10/17/2024 11:41 AM [facility] Creatinine 0.65 0.50 - 1.10 mg/dL LAB CHEMISTRY METHOD 10/17/2024 11:41 AM [facility] eGFR 89 >=60 mL/min/1. 73m2 LAB CHEMISTRY METHOD 10/17/2024 11:41 AM [facility] Comment:Calculation based on the??Chronic Kidney Disease Epidemiology Collaboration (CKD-EPI) equation refit??without adjustment for race. BUN/Creatinine Ratio 24.6 LAB CHEMISTRY METHOD 10/17/2024 11:41 AM [facility] Calcium 8.8 8.5 - 10.5 mg/dL LAB CHEMISTRY METHOD 10/17/2024 11:41 AM [facility] AST (SGOT) 65(H) 10 - 42 unit/L LAB CHEMISTRY METHOD 10/17/2024 11:41 AM [facility] ALT (SGPT) 47 10 - 60 unit/L LAB CHEMISTRY METHOD 10/17/2024 11:41 AM [facility] Alkaline Phosphatase 60 42 - 121 unit/L LAB CHEMISTRY METHOD 10/17/2024 11:41 AM [facility] Total Protein 6.2 6.0 - 8.0 g/dL LAB CHEMISTRY METHOD 10/17/2024 11:41 AM [facility] Albumin 2.8(L) 3.2 - 5.0 g/dL LAB CHEMISTRY METHOD 10/17/2024 11:41 AM [facility] Total Bilirubin 0.7 0.0 - 1.4 mg/dL LAB CHEMISTRY METHOD 10/17/2024 11:41 AM EDT [facility] Blood Venous blood specimen / Unknown Venipuncture / Unknown 10/17/2024 8:47 AM EDT 10/17/2024 10:31 AM EDT us Giovanni Coffey MD LAB BLOOD ORDERABLES Final Resul t [facility] [address] [place] [address], [place] [phone] * (ABNORMAL) Complete blood count (10/17/2024 8:47 AM EDT) WBC 5.1 4.8 - 10.8 K/mcL LAB HEMETOLOGY METHOD 10/17/2024 11:13 AM [facility] RBC 3.70(L) 3.80 - 4.80 M/mcL LAB HEMETOLOGY METHOD 10/17/2024 11:13 AM [facility] Hemoglobin 11.8 11.5 - 16.0 g/dL LAB HEMETOLOGY METHOD 10/17/2024 11:13 AM [facility] Hematocrit 35.7 35.0 - 47.0 % LAB HEMETOLOGY METHOD 10/17/2024 11:13 AM [facility] MCV 95.5 79.0 - 98.0 FL LAB HEMETOLOGY METHOD 10/17/2024 11:13 AM [facility] MCH 31.6 27.0 - 32.0 pcg LAB HEMETOLOGY METHOD 10/17/2024 11:13 AM [facility] MCHC 33.1 32.0 - 37.0 g/dL LAB HEMETOLOGY METHOD 10/17/2024 11:13 AM [facility] RDW 13.1 11.0 - 15.0 % LAB HEMETOLOGY METHOD 10/17/2024 11:13 AM EDT [facility] Platelets 184 130 - 400 K/mcL LAB HEMETOLOGY METHOD 10/17/2024 11:13 AM EDT [facility] MPV 11.4(H) 7.0 - 11.0 FL LAB HEMETOLOGY METHOD 10/17/2024 11:13 AM EDT [facility] NRBC 0.0 <1.0 % LAB HEMETOLOGY METHOD 10/17/2024 11:13 AM EDT [facility] NRBC Absolute 0.00 <0.10 K/mcL LAB HEMETOLOGY METHOD 10/17/2024 11:13 AM EDT [facility] Blood Venous blood specimen / Unknown Venipuncture / Unknown 10/17/2024 8:47 AM EDT 10/17/2024 10:31 AM EDT us Giovanni Coffey MD LAB BLOOD ORDERABLES Final Resul t [facility] [address] [place] [address], documented in this encounter Visit Diagnoses Diagnosis Essential (primary) hypertension Unspecified essential hypertension Hyperlipidemia, unspecified documented in this encounter Care Teams Recording Studio Set Up Worker Relationship Specialty Start Date End Date Carlita Villegas MD [address] [place] [phone] PCP - General 08/25/22 documented as of this encounter
--- OUTSIDE RECORDS SUMMARY | 2024-12-08 15:17 | XMS_ITS | Encounter Summary ---
Author Organization [facility] Address [address] [place] [address] Care Team Providers Care Crystal Slicer Name Role Phone Carlita Villegas MD Primary Care Provider [phone] Encounter Details Date Type Department Care Team (Late Contact Info) Description 11/09/2024 Lab Requisition [facility] - Main Lab 299 [facility] [place] [address] Giovanni Coffey MD [address] [place] [address], [phone] Essential (primary) hypertension; Hyperlipidemia, unspecified Social [...] 10:00 AM EST Office Visit Endocrinology - [place] [address] [place] [address] Gisell Villegas PA [address] [place] [address] 08/26/2025 10:00 AM EST Office Visit Vascular Surgery - [place] [address] [place] [address] Priya Lopez MD [facility] [address] [place] [address] documented as of this encounter Procedures Procedure [...] mmol/L LAB CHEMISTRY METHOD 11/10/2024 1:09 PM [facility] Potassium 4.1 3.5 - 5.5 mmol/L LAB CHEMISTRY METHOD 11/10/2024 1:09 PM [facility] Chloride 103 96 - 110 mmol/L LAB CHEMISTRY METHOD 11/10/2024 1:09 PM [facility] CO2 27 21 - 32 mmol/L LAB CHEMISTRY METHOD 11/10/2024 1:09 PM [facility] Anion Gap 7 3 - 11 LAB CHEMISTRY METHOD 11/10/2024 1:09 PM [facility] Glucose 86 70 - 100 mg/dL LAB CHEMISTRY METHOD 11/10/2024 1:09 PM [facility] BUN 13 5 - 25 mg/dL LAB CHEMISTRY METHOD 11/10/2024 1:09 PM [facility] Creatinine 0.66 0.50 - 1.10 mg/dL LAB CHEMISTRY METHOD 11/10/2024 1:09 PM [facility] eGFR 89 >=60 mL/min/1. 73m2 LAB CHEMISTRY METHOD 11/10/2024 1:09 PM EDT [facility] Comment:Calculation based on the??Chronic Kidney Disease Epidemiology Collaboration (CKD-EPI) equation refit??without adjustment for race. BUN/Creatinine Ratio 19.7 LAB CHEMISTRY METHOD 11/10/2024 1:09 PM [facility] Calcium 9.0 8.5 - 10.5 mg/dL LAB CHEMISTRY METHOD 11/10/2024 1:09 PM [facility] AST (SGOT) 17 10 - 42 unit/L LAB CHEMISTRY METHOD 11/10/2024 1:09 PM [facility] ALT (SGPT) 27 10 - 60 unit/L LAB CHEMISTRY METHOD 11/10/2024 1:09 PM [facility] Alkaline Phosphatase 140(H) 42 - 121 unit/L LAB CHEMISTRY METHOD 11/10/2024 1:09 PM [facility] Total Protein 6.7 6.0 - 8.0 g/dL LAB CHEMISTRY METHOD 11/10/2024 1:09 PM [facility] Albumin 3.3 3.2 - 5.0 g/dL LAB CHEMISTRY METHOD 11/10/2024 1:09 PM [facility] Total Bilirubin 0.4 0.0 - 1.4 mg/dL LAB CHEMISTRY METHOD 11/10/2024 1:09 PM [facility] Blood Venous blood specimen / Unknown Venipuncture / Unknown 11/10/2024 6:40 AM EDT 11/10/2024 11:16 AM EDT us Giovanni Coffey MD LAB BLOOD ORDERABLES Final Resul t [facility] [address] [place] [address], [place] [phone] * (ABNORMAL) Complete blood count (11/10/2024 6:40 AM EDT) WBC 3.7(L) 4.8 - 10.8 K/mcL LAB HEMETOLOGY METHOD 11/10/2024 11:50 AM [facility] RBC 3.70(L) 3.80 - 4.80 M/mcL LAB HEMETOLOGY METHOD 11/10/2024 11:50 AM [facility] Hemoglobin 11.6 11.5 - 16.0 g/dL LAB HEMETOLOGY METHOD 11/10/2024 11:50 AM [facility] Hematocrit 36.4 35.0 - 47.0 % LAB HEMETOLOGY METHOD 11/10/2024 11:50 AM [facility] MCV 98.4(H) 79.0 - 98.0 FL LAB HEMETOLOGY METHOD 11/10/2024 11:50 AM [facility] MCH 31.4 27.0 - 32.0 pcg LAB HEMETOLOGY METHOD 11/10/2024 11:50 AM [facility] MCHC 31.9(L) 32.0 - 37.0 g/dL LAB HEMETOLOGY METHOD 11/10/2024 11:50 AM [facility] RDW 13.2 11.0 - 15.0 % LAB HEMETOLOGY METHOD 11/10/2024 11:50 AM [facility] Platelets 210 130 - 400 K/mcL LAB HEMETOLOGY METHOD 11/10/2024 11:50 AM [facility] MPV 10.7 7.0 - 11.0 FL LAB HEMETOLOGY METHOD 11/10/2024 11:50 AM [facility] NRBC 0.0 <1.0 % LAB HEMETOLOGY METHOD 11/10/2024 11:50 AM [facility] NRBC Absolute 0.00 <0.10 K/mcL LAB HEMETOLOGY METHOD 11/10/2024 11:50 AM [facility] Blood Venous blood specimen / Unknown Venipuncture / Unknown 11/10/2024 6:40 AM EDT 11/10/2024 11:16 AM EDT us Giovanni Coffey MD LAB BLOOD ORDERABLES Final Resul t [facility] [address] [place] [address], documented in this encounter Visit Diagnoses Diagnosis Essential (primary) hypertension Unspecified essential hypertension Hyperlipidemia, unspecified documented in this encounter Care Teams Crystal Slicer Relationship Specialty Start Date End Date Carlita Villegas MD [address] [place] [address] PCP - General 08/25/22 documented as of this encounter
--- OUTSIDE RECORDS SUMMARY | 2024-12-08 15:17 | XMS_ITS | Encounter Summary ---
Author Organization [facility] Address [address] [place] [address] Care Team Providers Care Imaging Technologist Name Role Phone Carlita Villegas MD Primary Care Provider [phone] Encounter Details Date Type Department Care Team (Late st Contact Info) Description 11/19/2024 Lab Requisition [facility] - Main Lab 299 [facility] [place] [address] Giovanni Coffey MD [address] [place] [address], [phone] Urinary tract infection, site not specified [...] 10:00 AM EST Office Visit Endocrinology - [place] [address] [place] [address] Gisell Villegas PA [address] [place] [address] 08/26/2025 10:00 AM EST Office Visit Vascular Surgery - [place] [address] [place] [address] Priya Lopez MD 300 [facility] [address] [place] [address] documented as of this encounter Procedures Procedure [...] reflex microscopic (11/18/2024 12:00 AM EDT) Specific Morgan Urine 1.020 1.003 - 1.030 LAB URINALYSIS - AUTOMATED METHOD 11/19/2024 12:49 PM [facility] pH, Urine 6.0 5.0 - 8.0 pH LAB URINALYSIS - AUTOMATED METHOD 11/19/2024 12:49 PM [facility] Leukocytes, Urine Moderate(A) Negative LAB URINALYSIS - AUTOMATED METHOD 11/19/2024 12:49 PM [facility] Nitrite, Urine Positive(A) Negative LAB URINALYSIS - AUTOMATED METHOD 11/19/2024 12:49 PM [facility] Protein, Urine 30(A) <=Trace mg/dL LAB URINALYSIS - AUTOMATED METHOD 11/19/2024 12:49 PM [facility] Glucose, Urine Negative Negative mg/dL LAB URINALYSIS - AUTOMATED METHOD 11/19/2024 12:49 PM [facility] Ketones, Urine Trace(A) Negative mg/dL LAB URINALYSIS - AUTOMATED METHOD 11/19/2024 12:49 PM EDT [facility] Urobilinogen , Urine 0.2 0.2 - 1.0 mg/dL LAB URINALYSIS - AUTOMATED METHOD 11/19/2024 12:49 PM EDT [facility] Bilirubin, Urine Negative Negative LAB URINALYSIS - AUTOMATED METHOD 11/19/2024 12:49 PM EDT [facility] Blood, Urine Small(A) Negative LAB URINALYSIS - AUTOMATED METHOD 11/19/2024 12:49 PM T [facility] RBC, Urine >100(H) 0 - 4 /HPF 11/19/2024 12:49 PM EDT [facility] WBC, Urine >100(H) 0 - 4 /HPF 11/19/2024 12:49 PM [facility] Squamous Epithelial, Urine 20 0 - 60 /LPF 11/19/2024 12:49 PM [facility] Bacteria, Urine Many(A) Negative /HPF 11/19/2024 12:49 PM [facility] Mucus, Urine Small None /HPF 11/19/2024 12:49 PM [facility] Urine Urine specimen obtained by clean catch procedure / Unknown Non-blood Collection / Unknown 11/18/2024 11/19/2024 12:13 PM EDT us Giovanni Coffey MD LAB URINE ORDERABLES Final Resul t [facility] [address] [place] [address], * (ABNORMAL) Culture urine (11/18/2024 12:00 AM EDT) Culture, Urine >100,000 CFU/mL Escherichia coli(A) DANO 11/21/2024 11:19 AM EDT [facility] Urine Urine specimen obtained by [...] ORDER ERWIN Final Result Performing Organization Address City/State/[facility] Co de Phone Number [facility] [address] [place] [address], documented in this encounter Visit Diagnoses Diagnosis Urinary tract infection, site not specified documented in this encounter Care Teams Imaging Technologist Relationship Specialty Start Date End Date Carlita Villegas MD [address] [place] [address] PCP - General 08/25/22 documented as of this encounter
--- OUTSIDE RECORDS SUMMARY | 2024-12-08 15:17 | XMS_ITS | Encounter Summary ---
Author Organization [facility] Address [address] [place] [address] Care Team Providers Care Research Lab Assistant Name Role Phone Carlita Villegas MD Primary Care Provider [phone] Encounter Details Date Type Department Care Team (Late st Contact Info) Description 11/13/2024 Lab Requisition [facility] - Main Lab 299 [facility] [place] [address] Giovanni Coffey MD [address] [place] [address], [phone] Essential (primary) hypertension; Hyperlipidemia, unspecified; Unspecified [...] 10:00 AM EST Office Visit Endocrinology - [place] [address] [place], [place] [phone] Gisell Villegas PA [address] [place], [place] 08/26/2025 10:00 AM EST Office Visit Vascular Surgery - [place] [address] [place] [address] Priya Lopez MD [address] [place] [address] [place] [address] documented as of this encounter Procedures Procedure [...] mmol/L LAB CHEMISTRY METHOD 11/14/2024 11:15 AM [facility] Potassium 4.0 3.5 - 5.5 mmol/L LAB CHEMISTRY METHOD 11/14/2024 11:15 AM [facility] Chloride 99 96 - 110 mmol/L LAB CHEMISTRY METHOD 11/14/2024 11:15 AM [facility] CO2 30 21 - 32 mmol/L LAB CHEMISTRY METHOD 11/14/2024 11:15 AM [facility] Anion Gap 5 3 - 11 LAB CHEMISTRY METHOD 11/14/2024 11:15 AM [facility] Glucose 137(H) 70 - 100 mg/dL LAB CHEMISTRY METHOD 11/14/2024 11:15 AM [facility] BUN 15 5 - 25 mg/dL LAB CHEMISTRY METHOD 11/14/2024 11:15 AM [facility] Creatinine 0.69 0.50 - 1.10 mg/dL LAB CHEMISTRY METHOD 11/14/2024 11:15 AM [facility] eGFR 88 >=60 mL/min/1. 73m2 LAB CHEMISTRY METHOD 11/14/2024 11:15 AM [facility] Comment:Calculation based on the??Chronic Kidney Disease Epidemiology Collaboration (CKD-EPI) equation refit??without adjustment for race. BUN/Creatinine Ratio 21.7 LAB CHEMISTRY METHOD 11/14/2024 11:15 AM [facility] Calcium 9.3 8.5 - 10.5 mg/dL LAB CHEMISTRY METHOD 11/14/2024 11:15 AM [facility] AST (SGOT) 21 10 - 42 unit/L LAB CHEMISTRY METHOD 11/14/2024 11:15 AM [facility] ALT (SGPT) 27 10 - 60 unit/L LAB CHEMISTRY METHOD 11/14/2024 11:15 AM [facility] Alkaline Phosphatase 127(H) 42 - 121 unit/L LAB CHEMISTRY METHOD 11/14/2024 11:15 AM [facility] Total Protein 7.3 6.0 - 8.0 g/dL LAB CHEMISTRY METHOD 11/14/2024 11:15 AM [facility] Albumin 3.6 3.2 - 5.0 g/dL LAB CHEMISTRY METHOD 11/14/2024 11:15 AM [facility] Total Bilirubin 0.5 0.0 - 1.4 mg/dL LAB CHEMISTRY METHOD 11/14/2024 11:15 AM [facility] Blood Venous blood specimen / Unknown Venipuncture / Unknown 11/14/2024 8:30 AM EDT 11/14/2024 9:57 AM EDT Giovanni Coffey MD LAB BLOOD ORDERABLES Final Resul t [facility] [address] [place] [address], * (ABNORMAL) Complete blood count (11/14/2024 8:30 AM EDT) WBC 4.3(L) 4.8 - 10.8 K/mcL LAB HEMETOLOGY METHOD 11/14/2024 10:44 AM EDT [facility] RBC 4.00 3.80 - 4.80 M/mcL LAB HEMETOLOGY METHOD 11/14/2024 10:44 AM EDT [facility] Hemoglobin 12.4 11.5 - 16.0 g/dL LAB HEMETOLOGY METHOD 11/14/2024 10:44 AM EDT [facility] Hematocrit 38.6 35.0 - 47.0 % LAB HEMETOLOGY METHOD 11/14/2024 10:44 AM EDT [facility] MCV 97.5 79.0 - 98.0 FL LAB HEMETOLOGY METHOD 11/14/2024 10:44 AM EDT [facility] MCH 31.3 27.0 - 32.0 pcg LAB HEMETOLOGY METHOD 11/14/2024 10:44 AM EDT [facility] MCHC 32.1 32.0 - 37.0 g/dL LAB HEMETOLOGY METHOD 11/14/2024 10:44 AM EDT [facility] RDW 13.5 11.0 - 15.0 % LAB HEMETOLOGY METHOD 11/14/2024 10:44 AM EDT [facility] Platelets 237 130 - 400 K/mcL LAB HEMETOLOGY METHOD 11/14/2024 10:44 AM EDT [facility] MPV 10.6 7.0 - 11.0 FL LAB HEMETOLOGY METHOD 11/14/2024 10:44 AM EDT [facility] NRBC 0.0 <1.0 % LAB HEMETOLOGY METHOD 11/14/2024 10:44 AM EDT [facility] NRBC Absolute 0.00 <0.10 K/mcL LAB HEMETOLOGY METHOD 11/14/2024 10:44 AM EDT [facility] Blood Venous blood specimen / Unknown Venipuncture / Unknown 11/14/2024 8:30 AM EDT 11/14/2024 9:57 AM EDT us Giovanni Coffey MD LAB BLOOD ORDERABLES Final Resul t [facility] [address] [place] [address], [place] [phone] * C-reactive protein (11/14/2024 8:30 AM EDT) C-Reactive Protein 0.47 <=0.50 mg/dL LAB CHEMISTRY METHOD 11/14/2024 11:17 AM EDT [facility] Blood Venous blood specimen / Unknown Venipuncture / Unknown 11/14/2024 8:30 AM EDT 11/14/2024 9:57 AM EDT us Giovanni Coffey MD LAB BLOOD ORDERABLES Final Resul t [facility] [address] [place] [address], [place] [phone] documented in this encounter Visit Diagnoses Diagnosis Essential (primary) hypertension Unspecified essential hypertension Hyperlipidemia, unspecified Unspecified osteoarthritis, unspecified site Encounter for other orthopedic aftercare documented in this encounter Care Teams Research Lab Assistant Relationship Specialty Start Date End Date Carlita Villegas MD [address] [place] [phone] PCP - General 08/25/22 documented as of this encounter
--- OUTSIDE RECORDS SUMMARY | 2024-12-08 15:17 | XMS_ITS | Encounter Summary ---
Author Organization [facility] Address [address] [place] [address] Care Team Providers Care Mobile Device Developer Name Role Phone Carlita Villegas MD Primary Care Provider [phone] Encounter Details Date Type Department Care Team (Late st Contact Info) Description 11/20/2024 Lab Requisition [facility] - Main Lab [address] [facility] [place] [address] Giovanni Coffey MD [address] [place] [address], [phone] Essential (primary) hypertension; Hyperlipidemia, unspecified; Unspecified [...] 10:00 AM EST Office Visit Endocrinology - [place] [address] [place], [place] [phone] Gisell Villegas PA [address] [place], [place] 08/26/2025 10:00 AM EST Office Visit Vascular Surgery - [place] [address] [place] [address] Priya Lopez MD [address] [place] [address] documented as of this encounter Procedures Procedure [...] mmol/L LAB CHEMISTRY METHOD 11/21/2024 11:06 AM [facility] Potassium 4.2 3.5 - 5.5 mmol/L LAB CHEMISTRY METHOD 11/21/2024 11:06 AM [facility] Chloride 105 96 - 110 mmol/L LAB CHEMISTRY METHOD 11/21/2024 11:06 AM [facility] CO2 29 21 - 32 mmol/L LAB CHEMISTRY METHOD 11/21/2024 11:06 AM [facility] Anion Gap 6 3 - 11 LAB CHEMISTRY METHOD 11/21/2024 11:06 AM [facility] Glucose 81 70 - 100 mg/dL LAB CHEMISTRY METHOD 11/21/2024 11:06 AM [facility] BUN 15 5 - 25 mg/dL LAB CHEMISTRY METHOD 11/21/2024 11:06 AM [facility] Creatinine 0.68 0.50 - 1.10 mg/dL LAB CHEMISTRY METHOD 11/21/2024 11:06 AM [facility] eGFR 88 >=60 mL/min/1. 73m2 LAB CHEMISTRY METHOD 11/21/2024 11:06 AM [facility] Comment:Calculation based on the??Chronic Kidney Disease Epidemiology Collaboration (CKD-EPI) equation refit??without adjustment for race. BUN/Creatinine Ratio 22.1 LAB CHEMISTRY METHOD 11/21/2024 11:06 AM [facility] Calcium 9.2 8.5 - 10.5 mg/dL LAB CHEMISTRY METHOD 11/21/2024 11:06 AM [facility] AST (SGOT) 17 10 - 42 unit/L LAB CHEMISTRY METHOD 11/21/2024 11:06 AM [facility] ALT (SGPT) 18 10 - 60 unit/L LAB CHEMISTRY METHOD 11/21/2024 11:06 AM [facility] Alkaline Phosphatase 85 42 - 121 unit/L LAB CHEMISTRY METHOD 11/21/2024 11:06 AM [facility] Total Protein 6.5 6.0 - 8.0 g/dL LAB CHEMISTRY METHOD 11/21/2024 11:06 AM [facility] Albumin 3.2 3.2 - 5.0 g/dL LAB CHEMISTRY METHOD 11/21/2024 11:06 AM [facility] Total Bilirubin 0.4 0.0 - 1.4 mg/dL LAB CHEMISTRY METHOD 11/21/2024 11:06 AM [facility] Blood Venous blood specimen / Unknown Venipuncture / Unknown 11/21/2024 7:13 AM EDT 11/21/2024 9:07 AM EDT us Giovanni Coffey MD LAB BLOOD ORDERABLES Final Resul t [facility] [address] [place] [address], * (ABNORMAL) Complete blood count (11/21/2024 7:13 AM EDT) WBC 3.5(L) 4.8 - 10.8 K/mcL LAB HEMETOLOGY METHOD 11/21/2024 10:12 AM EDT [facility] RBC 3.50(L) 3.80 - 4.80 M/mcL LAB HEMETOLOGY METHOD 11/21/2024 10:12 AM EDT [facility] Hemoglobin 11.0(L) 11.5 - 16.0 g/dL LAB HEMETOLOGY METHOD 11/21/2024 10:12 AM EDT [facility] Hematocrit 34.4(L) 35.0 - 47.0 % LAB HEMETOLOGY METHOD 11/21/2024 10:12 AM EDT [facility] MCV 97.7 79.0 - 98.0 FL LAB HEMETOLOGY METHOD 11/21/2024 10:12 AM EDT [facility] MCH 31.3 27.0 - 32.0 pcg LAB HEMETOLOGY METHOD 11/[facility]24 [facility] MCHC 32.0 32.0 - 37.0 g/dL LAB HEMETOLOGY METHOD 11/21/2024 10:12 AM EDT [facility] RDW 13.5 11.0 - 15.0 % LAB HEMETOLOGY METHOD 11/21/2024 10:12 AM EDT [facility] Platelets 197 130 - 400 K/mcL LAB HEMETOLOGY METHOD 11/21/2024 10:12 AM EDT [facility] MPV 10.8 7.0 - 11.0 FL LAB HEMETOLOGY METHOD 11/21/2024 10:12 AM EDT [facility] NRBC 0.0 <1.0 % LAB HEMETOLOGY METHOD 11/21/2024 10:12 AM EDT [facility] NRBC Absolute 0.00 <0.10 K/mcL LAB HEMETOLOGY METHOD 11/21/2024 10:12 AM EDT [facility] Blood Venous blood specimen / Unknown Venipuncture / Unknown 11/21/2024 7:13 AM EDT 11/21/2024 9:07 AM EDT Giovanni Coffey MD LAB BLOOD ORDERABLES Final Resul t Performing Organization Address City/[facility]/ZIP Co de Phone Number [facility] [address] [place] [address], [place] [phone] * C-reactive protein (11/21/2024 7:13 AM EDT) C-Reactive Protein 0.48 <=0.50 mg/dL LAB CHEMISTRY METHOD 11/21/2024 10:55 AM EDT [facility] Blood Venous blood specimen / Unknown Venipuncture / Unknown 11/21/2024 7:13 AM EDT 11/21/2024 9:07 AM EDT Giovanni Coffey MD LAB BLOOD ORDERABLES Final Resul t [facility] [address] [place] [address], [place] [phone] documented in this encounter Visit Diagnoses Diagnosis Essential (primary) hypertension Unspecified essential hypertension Hyperlipidemia, unspecified Unspecified osteoarthritis, unspecified site Encounter for other orthopedic aftercare documented in this encounter Care Teams Mobile Device Developer Relationship Specialty Start Date End Date Carlita Villegas MD [address] [place] [id number] PCP - General 08/25/22 documented as of this encounter
--- OUTSIDE RECORDS SUMMARY | 2024-12-08 15:17 | XMS_ITS | Encounter Summary ---
Author Organization [facility] Address [address] [place] [address] Care Team Providers Care Nailer Operator Name Role Phone Carlita Villegas MD Primary Care Provider [phone] Encounter Details Date Type Department Care Team (Late Contact Info) Description 12/05/2024 Lab Requisition [facility] - Main Lab 299 [facility] [place] [address] Social History Tobacco Use Types [...] 10:00 AM EST Office Visit Endocrinology - [place] [address] [place], [place] [phone] Gisell Villegas PA [address] [place], [place] 08/26/2025 10:00 AM EST Office Visit Vascular Surgery - [place] [address] [facility] [address] [place] [phone] Priya Lopez MD [address] [facility] [address] [place] [address] documented as of this encounter Visit Diagnoses Not on filedocumented in this encounter Care Teams Nailer Operator Relationship Specialty Start Date End Date Carlita Villegas MD [address] [place] [phone] PCP - General 08/25/22 documented as of this encounter
--- OUTSIDE RECORDS SUMMARY | 2024-12-08 15:18 | XMS_ITS | Encounter Summary ---
Author Organization [facility] Address [address] [place] [address] Care Team Providers Care Picking Table Worker Name Role Phone Carlita Villegas MD Primary Care Provider [phone] Encounter Details Date Type Department Care Team (Late st Contact Info) Description 10/23/2024 Lab Requisition [facility] - Main Lab 299 [facility] [place] [address] Giovanni Coffey MD [address] [place] [address], [phone] Essential (primary) hypertension; Hyperlipidemia, unspecified; Unspecified [...] 10:00 AM EST Office Visit Endocrinology - [place] [address] [place], [place] [phone] Gisell Villegas PA [address] [place], [place] 08/26/2025 10:00 AM EST Office Visit Vascular Surgery - [place] [address] [place] [address] Priya Lopez MD [address] [place] [address] documented as of this encounter Procedures Procedure [...] t [facility] [address] [place] [address], * (ABNORMAL) Complete blood count (10/24/2024 5:10 AM EDT) WBC 5.1 4.8 - 10.8 K/mcL LAB HEMETOLOGY METHOD 10/24/2024 10:04 AM EDT [facility] RBC 3.50(L) 3.80 - 4.80 M/mcL LAB HEMETOLOGY METHOD 10/24/2024 10:04 AM EDT [facility] Hemoglobin 10.9(L) 11.5 - 16.0 g/dL LAB HEMETOLOGY METHOD 10/24/2024 10:04 AM T [facility] Hematocrit 34.2(L) 35.0 - 47.0 % LAB HEMETOLOGY METHOD 10/24[facility]24 [facility] MCV 98.6(H) 79.0 - 98.0 FL LAB HEMETOLOGY METHOD 10/24[facility]24 [facility] MCH 31.4 27.0 - 32.0 pcg LAB HEMETOLOGY METHOD 10/24/2024 10:04 AM EDT [facility] MCHC 31.9(L) 32.0 - [...] LAB HEMETOLOGY METHOD 10/24/2024 10:04 AM EDT [facility] NRBC 0.0 <1.0 % LAB HEMETOLOGY METHOD 10/24/2024 10:04 AM EDT [facility] NRBC Absolute 0.00 <0.10 K/mcL LAB HEMETOLOGY METHOD 10/24/2024 10:04 AM EDT [facility] Blood Venous blood specimen / Unknown Venipuncture / Unknown 10/24/2024 5:10 AM EDT 10/24/2024 9:54 AM EDT us Giovanni Coffey MD LAB BLOOD ORDERABLES Final Resul t Performing Organization Address City/[facility]/ZIP Co de Phone Number [facility] [address] [place] [address], [place] [phone] * (ABNORMAL) C-reactive protein (10/24/2024 5:10 AM EDT) C-Reactive Protein 1.44(H) <=0.50 mg/dL LAB CHEMISTRY METHOD 10/24/2024 11:18 AM EDT [facility] Blood Venous blood specimen / Unknown Venipuncture / Unknown 10/24/2024 5:10 AM EDT 10/24/2024 9:54 AM EDT us Giovanni Coffey MD LAB BLOOD ORDERABLES Final Resul t Performing Organization Address City/[facility]/ZIP Co de Phone Number [facility] [address] [place] [address], [place] [phone] documented in this encounter Visit Diagnoses Diagnosis Essential (primary) hypertension Unspecified essential hypertension Hyperlipidemia, unspecified Unspecified osteoarthritis, unspecified site Encounter for other orthopedic aftercare documented in this encounter Care Teams Picking Table Worker Relationship Specialty Start Date End Date Carlita Villegas MD [address] [place] [phone] PCP - General 08/25/22 documented as of this encounter
--- OUTSIDE RECORDS SUMMARY | 2024-12-08 15:18 | XMS_ITS | Encounter Summary ---
Author Organization [facility] Address [address] [place] [address] Care Team Providers Care Home Health Lvn Name Role Phone Carlita Villegas MD Primary Care Provider [phone] Encounter Details Date Type Department Care Team (Late Contact Info) Description 10/27/2024 Lab Requisition [facility] - Main Lab 299 [facility] [place] [address] Giovanni Coffey MD [address] [place] [address], [phone] Essential (primary) hypertension; Hyperlipidemia, unspecified Social [...] 10:00 AM EST Office Visit Endocrinology - [place] [address] [place] [address] Gisell Villegas PA [address] [place] [address] 08/26/2025 10:00 AM EST Office Visit Vascular Surgery - [place] [address] [place] [address] Priya Lopez MD [address] [place] [address] documented as of this encounter Procedures Procedure [...] LAB CHEMISTRY METHOD 10/27/2024 12:56 PM EDT [facility] Comment:Calculation based on the??Chronic Kidney Disease Epidemiology Collaboration (CKD-EPI) equation refit??without adjustment for race. BUN/Creatinine Ratio 26.1 LAB CHEMISTRY METHOD 10/27/2024 12:56 PM EDT [facility] Calcium 8.9 8.5 - 10.5 mg/dL LAB CHEMISTRY METHOD 10/27/2024 12:56 PM T [facility] AST (SGOT) 67(H) 10 - [...] LAB CHEMISTRY METHOD 10/27/2024 12:56 PM T [facility] Blood Venous blood specimen / Unknown Venipuncture / Unknown 10/27/2024 6:25 AM EDT 10/27/2024 10:32 AM EDT us Giovanni Coffey MD LAB BLOOD ORDERABLES Final Resul t [facility] [address] [place] [address], * Complete blood count (10/27/2024 6:25 AM EDT) [facility] WBC 5.0 4.8 - 10.8 K/mcL LAB [...] LAB HEMETOLOGY METHOD 10/27/2024 11:30 AM EDT [facility] Blood Venous blood specimen / Unknown Venipuncture / Unknown 10/27/2024 6:25 AM EDT 10/27/2024 10:32 AM EDT us Giovanni Coffey MD LAB BLOOD ORDERABLES Final Resul t [facility] [address] [place] [address], documented in this encounter Visit Diagnoses Diagnosis Essential (primary) hypertension Unspecified essential hypertension Hyperlipidemia, unspecified documented in this encounter Care Teams Home Health Lvn Relationship Specialty Start Date End Date Carlita Villegas MD [address] [place] [phone] PCP - General 08/25/22 documented as of this encounter
--- OUTSIDE RECORDS SUMMARY | 2024-12-08 15:18 | XMS_ITS | Clinical Summary ---
Author Organization [address] [facility] Address [address] [place] [address] Phone Care Team Providers Care Ammonia Box Tender Name Role Phone Carlita Villegas MD Primary Care Provider [phone] Allergies Active Allergy Reactions Criticality Noted Date [...] Department Care Team Description 12/05/2024 Lab Requisition [facility] - Main Lab [address] [facility] [place] [address] 12/04/[address] [facility] Main Lab [address] [place] [phone] Giovanni Coffey MD Essential (primary) hypertension; Hyperlipidemia, unspecified; Encounter for other orthopedic aftercare; Vitamin D deficiency, unspecified 11/27/2024 Lab Requisition [facility] Lab [address] [place] [address] Giovanni Coffey MD Essential (primary) hypertension; Hyperlipidemia, unspecified; Unspecified osteoarthritis, unspecified site; Encounter for other orthopedic aftercare 11/20/2024 Lab Requisition [facility] Lab [address] [place] [address] Giovanni Coffey MD Essential (primary) hypertension; Hyperlipidemia, unspecified; Unspecified osteoarthritis, unspecified site; Encounter for other orthopedic aftercare 11/19/2024 Lab Requisition [facility] Lab [address] [place] [phone] Giovanni Coffey MD Urinary tract infection, site not specified 11/15/2024 Lab Requisition [facility] Lab [address] [place] [address] Giovanni Coffey MD Essential (primary) hypertension; Hyperlipidemia, unspecified 11/13/2024 Lab Requisition [facility] Lab [address] [place] [address] Giovanni Coffey MD Essential (primary) hypertension; Hyperlipidemia, unspecified; Unspecified osteoarthritis, unspecified site; Encounter for other orthopedic aftercare 11/09/2024 Lab Requisition [facility] Lab [address] [place] [address] Giovanni Coffey MD Essential (primary) hypertension; Hyperlipidemia, unspecified 11/07/2024 Lab Requisition [facility] Lab [address] [place] [address] Giovanni Coffey MD Essential (primary) hypertension 11/06/2024 Lab Requisition [facility] Lab [address] [place] [phone] Giovanni Coffey MD Essential (primary) hypertension; Hyperlipidemia, unspecified; Unspecified osteoarthritis, unspecified site; Encounter for other orthopedic aftercare 11/01/2024 Lab Requisition [facility] Lab [address] [place] [phone] Giovanni Coffey MD Essential (primary) hypertension; Hyperlipidemia, unspecified 10/30/2024 Lab Requisition [facility] Lab [address] [place] [address] Giovanni Coffey MD Essential (primary) hypertension; Hyperlipidemia, unspecified; Unspecified osteoarthritis, unspecified site; Encounter for other orthopedic aftercare 10/27/2024 Lab Requisition [facility] Lab [address] [place] [phone] Giovanni Coffey MD Essential (primary) hypertension; Hyperlipidemia, unspecified 10/23/2024 Lab Requisition [facility] Lab [address] [place] [phone] Giovanni Coffey MD Essential (primary) hypertension; Hyperlipidemia, unspecified; Unspecified osteoarthritis, unspecified site; Encounter for other orthopedic aftercare 10/17/2024 Lab Requisition [facility] Lab [address] [place] [phone] Giovanni Coffey MD Essential (primary) hypertension; Hyperlipidemia, unspecified 10/17/2024 Telephone Endocrinology [address] [phone] Lisandro Cohen [place] prolia info needed 10/14/2024 Telephone Adult Medicine [address] [address] Carlita Villegas MD from Last 3 Months [...] COMMENT: bleeding COLONOSCOPY W/ BIOPSIES 04/07/2010 PROCEDURE: DC COLONOSCOPY STOMA W/BIOPSY SINGLE/MULTIPLE; COMMENT: Up to cecum, good preparation, 15mm polyp at ascending partially removed:tubular adenoma, transverse colon polyp removed.:ulcerated inflammatory polyp COLONOSCOPY 03/20/2012 PROCEDURE: DC COLONOSCOPY FLX DX W/COLLJ SPEC WHEN PFRMD; COMMENT: normal to mid right colon, very difficult exam. BREAST SURGERY 08/06/1986 Left PROCEDURE: DC UNLISTED PROCEDURE BREAST; COMMENT: benign Medical History [...] 10:00 AM EST Office Visit Endocrinology - [place] [address] [place] [address] Gisell Villegas PA [address] [place] [address] 08/26/2025 10:00 AM EST Office Visit Vascular Surgery - [place] [address] [facility] [address] [place] [address] Priya Lopez MD [address] [place] [address] Health Maintenance Due Date Last Done Comments [...] LAB CHEMISTRY METHOD 12/05/2024 1:[address] [facility] Blood Venous blood specimen / Unknown Venipuncture / Unknown 12/05/2024 7:00 AM EDT 12/05/2024 10:24 AM EDT us Giovanni Coffey MD LAB BLOOD ORDERABLES Final Resul t [facility] [address] [place] [address], [place] [phone] * (ABNORMAL) Complete blood count (12/05/2024 7:00 AM EDT) Only the most recent of12 resultswithin the time period is included. WBC 3.4(L) 4.8 - 10.8 K/[facility] LAB HEMETOLOGY METHOD 12/05/2024 11:[address] [facility] RBC 3.60(L) 3.80 - 4.80 M/[facility] LAB HEMETOLOGY METHOD 12/05/2024 11:30 AM [facility] Hemoglobin 11.1(L) 11.5 - 16.0 g/dL LAB HEMETOLOGY METHOD 12/05/2024 11:30 AM [facility] Hematocrit 34.7(L) 35.0 - 47.0 % LAB HEMETOLOGY METHOD 12/05/2024 11:30 AM [facility] MCV 96.9 79.0 - 98.0 FL LAB HEMETOLOGY METHOD 12/05/2024 11:30 AM [facility] MCH 31.0 27.0 - 32.0 pcg LAB HEMETOLOGY METHOD 12/05/2024 11:30 AM [facility] MCHC 32.0 32.0 - 37.0 g/dL LAB HEMETOLOGY METHOD 12/05/2024 11:30 AM [facility] RDW 13.5 11.0 - 15.0 % LAB HEMETOLOGY METHOD 12/05/2024 11:30 AM [facility] Platelets 203 130 - 400 K/mcL LAB HEMETOLOGY METHOD 12/05/2024 11:30 AM [facility] MPV 10.7 7.0 - 11.0 FL LAB HEMETOLOGY METHOD 12/05/2024 11:30 AM [facility] NRBC 0.0 <1.0 % LAB HEMETOLOGY METHOD 12/05/2024 11:30 AM [facility] NRBC Absolute 0.00 <0.10 K/mcL LAB HEMETOLOGY METHOD 12/05/2024 11:30 AM [facility] Blood Venous blood specimen / Unknown Venipuncture / Unknown 12/05/2024 7:00 AM EDT 12/05/2024 10:24 AM EDT us Giovanni Coffey MD LAB BLOOD ORDERABLES Final Resul t [facility] [address] [place] [address], [place] [phone] * (ABNORMAL) C-reactive protein (12/05/2024 7:00 AM EDT) Only the most recent of9 resultswithin the time period is included. [facility] C-Reactive Protein 1.16(H) <=0.50 mg/dL LAB CHEMISTRY METHOD 12/05/2024 1:[address] [facility] Blood Venous blood specimen / Unknown Venipuncture / Unknown 12/05/2024 7:00 AM EDT 12/05/2024 10:24 AM EDT Giovanni Coffey MD LAB BLOOD ORDERABLES Final Resul t Performing Organization Address [facility]/ZIP Co de Phone Number [facility] [address] [place] [address], [place] [phone] * (ABNORMAL) Comprehensive metabolic panel (12/05/2024 7:00 AM EDT) Only the most recent of12 resultswithin the time period is included. [facility] Sodium 141 133 - 145 mmol/L LAB CHEMISTRY METHOD 12/05/2024 1:02 PM [facility] Potassium 3.9 3.5 - 5.5 mmol/L LAB CHEMISTRY METHOD 12/05/2024 1:02 PM [facility] Chloride 107 96 - 110 mmol/L LAB CHEMISTRY METHOD 12/05/2024 1:02 PM [facility] CO2 29 21 - 32 mmol/L LAB CHEMISTRY METHOD 12/05/2024 1:02 PM [facility] Anion Gap 5 3 - 11 LAB CHEMISTRY METHOD 12/05/2024 1:02 PM [facility] Glucose 86 70 - 100 mg/dL LAB CHEMISTRY METHOD 12/05[facility] BUN 11 5 - 25 mg/dL LAB CHEMISTRY METHOD 12/05/2024 1:02 PM [facility] Creatinine 0.57 0.50 - 1.10 mg/dL LAB CHEMISTRY METHOD 12/05/2024 1:02 PM [facility] eGFR 92 >=60 mL/min/1. 73m2 LAB CHEMISTRY METHOD 12/05/2024 1:02 PM [facility] Comment:Calculation based on the??Chronic Kidney Disease Epidemiology Collaboration (CKD-EPI) equation refit??without adjustment for race. BUN/Creatinine Ratio 19.3 LAB CHEMISTRY METHOD 12/05/2024 1:02 PM [facility] Calcium 8.4(L) 8.5 - 10.5 mg/dL LAB CHEMISTRY METHOD 12/05/2024 1:02 PM [facility] AST (SGOT) 14 10 - 42 unit/L LAB CHEMISTRY METHOD 12/05/2024 1:02 PM [facility] ALT (SGPT) 14 10 - 60 unit/L LAB CHEMISTRY METHOD 12/05/2024 1:02 PM [facility] Alkaline Phosphatase 61 42 - 121 unit/L LAB CHEMISTRY METHOD 12/05/2024 1:02 PM [facility] Total Protein 6.5 6.0 - 8.0 g/dL LAB CHEMISTRY METHOD 12/05/2024 1:02 PM [facility] Albumin 3.2 3.2 - 5.0 g/dL LAB CHEMISTRY METHOD 12/05/2024 1:02 PM [facility] Total Bilirubin 0.4 0.0 - 1.4 mg/dL LAB CHEMISTRY METHOD 12/05/2024 1:02 PM [facility] Blood Venous blood specimen / Unknown Venipuncture / Unknown 12/05/2024 7:00 AM EDT 12/05/2024 10:24 AM EDT us Giovanni Coffey MD LAB BLOOD ORDERABLES Final Resul t [facility] [address] [place] [address], [place] [phone] * (ABNORMAL) Urinalysis with reflex microscopic (11/18/2024 12:00 AM EDT) Only the most recent of2 resultswithin the time period is included. Specific [place] Urine 1.020 1.003 - 1.030 LAB URINALYSIS - AUTOMATED METHOD 11/19/2024 12:[address] [facility] pH, Urine 6.0 5.0 - 8.0 pH LAB URINALYSIS - AUTOMATED METHOD 11/19/2024 12:49 PM [facility] Leukocytes, Urine Moderate(A) Negative LAB URINALYSIS - AUTOMATED METHOD 11/19/2024 12:49 PM [facility] Nitrite, Urine Positive(A) Negative LAB URINALYSIS - AUTOMATED METHOD 11/19/2024 12:49 PM [facility] Protein, Urine 30(A) <=Trace mg/dL LAB URINALYSIS - AUTOMATED METHOD 11/19/2024 12:49 PM [facility] Glucose, Urine Negative Negative mg/dL LAB URINALYSIS - AUTOMATED METHOD 11/19/2024 12:49 PM [facility] Ketones, Urine Trace(A) Negative mg/dL LAB URINALYSIS - AUTOMATED METHOD 11/19/2024 12:49 PM [facility] Urobilinogen , Urine 0.2 0.2 - 1.0 mg/dL LAB URINALYSIS - AUTOMATED METHOD 11/19/2024 12:49 PM [facility] Bilirubin, Urine Negative Negative LAB URINALYSIS - AUTOMATED METHOD 11/19/2024 12:49 PM [facility] Blood, Urine Small(A) Negative LAB URINALYSIS - AUTOMATED METHOD 11/19/2024 12:[address] [facility] RBC, Urine >100(H) 0 - 4 /HPF 11/19/2024 12:[address] [facility] WBC, Urine >100(H) 0 - 4 /HPF 11/19/2024 12:[address] [facility] Squamous Epithelial, Urine 20 0 - 60 /LPF 11/19/2024 12:[address] [facility] Bacteria, Urine Many(A) Negative /HPF 11/19/2024 12:[address] [facility] Mucus, Urine Small None /HPF 11/19/2024 12:[address] [facility] Urine Urine specimen obtained by clean catch procedure / Unknown Non-blood Collection / Unknown 11/18/2024 11/19/2024 12:13 PM EDT us Giovanni Coffey MD LAB URINE ORDERABLES Final Resul t [facility] [address] [place] [address], * (ABNORMAL) Culture urine (11/18/2024 12:00 AM EDT) Only the most recent of2 resultswithin the time period is included. Culture, Urine >100,000 CFU/mL Escherichia coli(A) DANO 11/21/2024 11:[address] [facility] Urine Urine specimen obtained by [...] MICROBIOLOGY - GENERAL ORDER ERWIN Final Result [facility] [address] [place] [address], [place] [phone] * (ABNORMAL) Lipid panel with reflex to direct LDL (11/17/2024 5:21 AM EDT) Only the most recent of2 resultswithin the time period is included. Cholesterol 178 0 - 200 mg/dL LAB CHEMISTRY METHOD 11/17/2024 11:[address] [facility] Triglycerides 122 0 - 150 mg/dL LAB CHEMISTRY METHOD 11/17/2024 11:[address] [facility] HDL 51 >=40 mg/dL LAB CHEMISTRY METHOD [facility]24 [facility] LDL Calculated 103(H) 0 - 100 mg/dL LAB CHEMISTRY METHOD 11/17/2024 11:55 AM [facility] VLDL Cholesterol Waldemar 24.4 mg/dL LAB CHEMISTRY METHOD 11/17/2024 11:55 AM [facility] Non HDL Chol. (LDL+VLDL) 127 <145 mg/dL LAB CHEMISTRY METHOD 11/17/2024 11:[address] [facility] Chol/HDL Ratio 3.5 0.0 - 4.4 LAB CHEMISTRY METHOD 11/17/2024 11:[address] [facility] Blood Venous blood specimen / Unknown Venipuncture / Unknown 11/17/2024 5:21 AM EDT 11/17/2024 10:33 AM EDT Giovanni Coffey MD LAB BLOOD ORDERABLES Final Resul t [facility] [address] [place] [address], [place] [phone] * External Vascular Ultrasound (10/23/2024) Only the [...] IMPRESSION: ?? Osteoporosis by WHO criteria. The [facility] Department of Internal Medicine recommends [...] alternative screening schedule based on may Amaya., [facility] August 24, 2011 for patients with osteopenia [...] IMPRESSION: IMPRESSION: Osteoporosis by WHO criteria. The [facility] Department of Internal Medicine recommendsusing [...] alternative screening schedule based on may [facility] for [facility] with [facility] (based on [...] to Health Maintenance Insurance [facility] MEDICARE ADVANTAGE [facility] MEDICARE ADVANTAGE MEDICARE [facility] Care Teams Ammonia Box Tender Relationship Specialty Start Date End Date Carlita Villegas MD [address] [place] [phone] PCP - General 08/25/22
--- OUTSIDE RECORDS SUMMARY | 2024-12-08 15:18 | XMS_ITS | Encounter Summary ---
Author Organization [facility] Address [address] [place] [address] Care Team Providers Care Property Caretaker Name Role Phone Carlita Villegas MD Primary Care Provider [phone] Encounter Details Date Type Department Care Team (Late Contact Info) Description 11/15/2024 Lab Requisition [facility] - Main Lab 299 [facility] [place] [address] Giovanni Coffey MD [address] [place] [address], [phone] Essential (primary) hypertension; Hyperlipidemia, unspecified Social [...] 10:00 AM EST Office Visit Endocrinology - [place] [address] [place] [address] Gisell Villegas PA [address] [place] [address] 08/26/2025 10:00 AM EST Office Visit Vascular Surgery - [place] [address] [place] [address] Priya Lopez MD [address] [place] [address] documented as of this encounter Procedures Procedure [...] LAB CHEMISTRY METHOD 11/17/2024 11:55 AM EDT [facility] Blood Venous blood specimen / Unknown Venipuncture / Unknown 11/17/2024 5:21 AM EDT 11/17/2024 10:33 AM EDT us Giovanni Coffey MD LAB BLOOD ORDERABLES Final Resul t [facility] [address] [place] [address], * (ABNORMAL) Lipid panel with reflex to direct LDL (11/17/2024 5:21 AM EDT) Cholesterol 178 0 - 200 mg/dL LAB CHEMISTRY METHOD 11/17/2024 11:55 AM EDT [facility] Triglycerides 122 0 - 150 mg/dL LAB CHEMISTRY METHOD 11/17/2024 11:55 AM EDT [facility] HDL 51 >=40 mg/dL LAB CHEMISTRY METHOD 11/17/2024 11:55 AM [facility] LDL Calculated 103(H) 0 - 100 mg/dL LAB CHEMISTRY METHOD [facility] VLDL Cholesterol Waldemar 24.4 mg/dL LAB CHEMISTRY METHOD 11/17/2024 11:55 AM [facility] Non HDL Chol. (LDL+VLDL) 127 <145 mg/dL LAB CHEMISTRY METHOD 11/17/2024 11:55 AM [facility] Chol/HDL Ratio 3.5 0.0 - 4.4 LAB CHEMISTRY METHOD 11/17/2024 11:55 AM [facility] Blood Venous blood specimen / Unknown Venipuncture / Unknown 11/17/2024 5:21 AM EDT 11/17/2024 10:33 AM EDT us Giovanni Coffey MD LAB BLOOD ORDERABLES Final Resul t [facility] [address] [place] [address], [place] [phone] * (ABNORMAL) Comprehensive metabolic panel (11/17/2024 5:21 AM EDT) Sodium 139 133 - 145 mmol/L LAB CHEMISTRY METHOD 11/17/2024 11:55 AM T [facility] Potassium 4.0 3.5 - 5.5 mmol/L LAB CHEMISTRY METHOD 11/17/2024 11:55 AM [facility] Chloride 105 96 - 110 mmol/L LAB CHEMISTRY METHOD 11/17/2024 11:55 AM [facility] CO2 28 21 - 32 mmol/L LAB CHEMISTRY METHOD 11/17/2024 11:[facility] Anion Gap 6 3 - 11 LAB CHEMISTRY METHOD 11/17/2024 11:55 AM [facility] Glucose 76 70 - 100 mg/dL LAB CHEMISTRY METHOD 11/17/2024 11:55 AM [facility] BUN 14 5 - 25 mg/dL LAB CHEMISTRY METHOD 11/17/2024 11:55 AM [facility] Creatinine 0.68 0.50 - 1.10 mg/dL LAB CHEMISTRY METHOD 11/17/2024 11:55 AM [facility] eGFR 88 >=60 mL/min/1. 73m2 LAB CHEMISTRY METHOD 11/17/2024 11:55 AM [facility] Comment:Calculation based on the??Chronic Kidney Disease Epidemiology Collaboration (CKD-EPI) equation refit??without adjustment for race. BUN/Creatinine Ratio 20.6 LAB CHEMISTRY METHOD 11/17/2024 11:55 AM [facility] Calcium 8.7 8.5 - 10.5 mg/dL LAB CHEMISTRY METHOD 11/17/2024 11:55 AM [facility] AST (SGOT) 18 10 - 42 unit/L LAB CHEMISTRY METHOD 11/17/2024 11:55 AM [facility] ALT (SGPT) 22 10 - 60 unit/L LAB CHEMISTRY METHOD 11/17/2024 11:55 AM [facility] Alkaline Phosphatase 100 42 - 121 unit/L LAB CHEMISTRY METHOD 11/17/2024 11:55 AM [facility] Total Protein 6.3 6.0 - 8.0 g/dL LAB CHEMISTRY METHOD 11/17/2024 11:55 AM [facility] Albumin 3.1(L) 3.2 - 5.0 g/dL LAB CHEMISTRY METHOD 11/17/2024 11:55 AM [facility] Total Bilirubin 0.4 0.0 - 1.4 mg/dL LAB CHEMISTRY METHOD 11/17/2024 11:55 AM EDT [facility] Blood Venous blood specimen / Unknown Venipuncture / Unknown 11/17/2024 5:21 AM EDT 11/17/2024 10:33 AM EDT us Giovanni Coffey MD LAB BLOOD ORDERABLES Final Resul t [facility] [address] [place] [address], [place] [phone] * (ABNORMAL) Complete blood count (11/17/2024 5:21 AM EDT) WBC 5.1 4.8 - 10.8 K/mcL LAB HEMETOLOGY METHOD 11/17/2024 11:19 AM [facility] RBC 3.40(L) 3.80 - 4.80 M/mcL LAB HEMETOLOGY METHOD 11/17/2024 11:19 AM [facility] Hemoglobin 10.8(L) 11.5 - 16.0 g/dL LAB HEMETOLOGY METHOD 11/17/2024 11:19 AM [facility] Hematocrit 33.3(L) 35.0 - 47.0 % LAB HEMETOLOGY METHOD 11/17/2024 11:19 AM [facility] MCV 97.1 79.0 - 98.0 FL LAB HEMETOLOGY METHOD 11/17/2024 11:[facility] MCH 31.5 27.0 - 32.0 pcg LAB HEMETOLOGY METHOD 11/17/2024 11:19 AM [facility] MCHC 32.4 32.0 - 37.0 g/dL LAB HEMETOLOGY METHOD 11/17/2024 11:19 AM [facility] RDW 13.5 11.0 - 15.0 % LAB HEMETOLOGY METHOD 11/17/2024 11:19 AM EDT [facility] Platelets 194 130 - 400 K/mcL LAB HEMETOLOGY METHOD 11/17/2024 11:19 AM EDT [facility] MPV 10.8 7.0 - 11.0 FL LAB HEMETOLOGY METHOD 11/17/2024 11:19 AM EDT [facility] NRBC 0.0 <1.0 % LAB HEMETOLOGY METHOD 11/17/2024 11:19 AM EDT [facility] NRBC Absolute 0.00 <0.10 K/mcL LAB HEMETOLOGY METHOD 11/17/2024 11:19 AM EDT [facility] Blood Venous blood specimen / Unknown Venipuncture / Unknown 11/17/2024 5:21 AM EDT 11/17/2024 10:33 AM EDT us Giovanni Coffey MD LAB BLOOD ORDERABLES Final Resul t [facility] [address] [place] [address], documented in this encounter Visit Diagnoses Diagnosis Essential (primary) hypertension Unspecified essential hypertension Hyperlipidemia, unspecified documented in this encounter Care Teams Property Caretaker Relationship Specialty Start Date End Date Carlita Villegas MD [address] [place] [address] PCP - General 08/25/22 documented as of this encounter
--- OUTSIDE RECORDS SUMMARY | 2024-12-08 15:18 | XMS_ITS | Encounter Summary ---
Author Organization [facility] Address [address] [place] [address] Care Team Providers Care Transition Lead Name Role Phone Carlita Villegas MD Primary Care Provider [phone] Encounter Details Date Type Department Care Team (Late st Contact Info) Description 11/27/2024 Lab Requisition [facility] - Main Lab 299 [facility] [place] [address] Giovanni Coffey MD [address] [place] [address], [phone] Essential (primary) hypertension; Hyperlipidemia, unspecified; Unspecified [...] 10:00 AM EST Office Visit Endocrinology - [place] [address] [place], [place] [phone] Gisell Villegas PA [address] [place], [place] 08/26/2025 10:00 AM EST Office Visit Vascular Surgery - [place] [address] [place] [address] Priya Lopez MD [address] [place] [address] documented as of this encounter Procedures Procedure Name Priority Date/Time Associated Diagnosis Comments COMPLETE BLOOD COUNT Routine 11/28/2024 7:25 AM EDT Essential (primary) hypertension Hyperlipidemia, unspecified Unspecified osteoarthritis, unspecified site Encounter for other orthopedic aftercare C-REACTIVE PROTEIN Routine 11/28/2024 7: 25 AM EDT Essential (primary) hypertension Hyperlipidemia, unspecified Unspecified osteoarthritis, unspecified site Encounter for other orthopedic aftercare COMPREHENSIVE METABOLIC PANEL Routine 11/28/2024 7:25 AM EDT Essential (primary) hypertension Hyperlipidemia, unspecified Unspecified osteoarthritis, unspecified site Encounter for other orthopedic aftercare documented in this encounter Results * (ABNORMAL) Comprehensive metabolic panel (11/28/2024 7:25 AM EDT) Sodium 140 133 - 145 mmol/L LAB CHEMISTRY METHOD 11/28/2024 11:25 AM [facility] Potassium 4.4 3.5 - 5.5 mmol/L LAB CHEMISTRY METHOD 11/28/2024 11:25 AM [facility] Chloride 108 96 - 110 mmol/L LAB CHEMISTRY METHOD 11/28/2024 11:25 AM [facility] CO2 29 21 - 32 mmol/L LAB CHEMISTRY METHOD 11/28/2024 11:25 AM [facility] Anion Gap 3 3 - 11 LAB CHEMISTRY METHOD 11/28/2024 11:25 AM [facility] Glucose 91 70 - 100 mg/dL LAB CHEMISTRY METHOD 11/28/2024 11:25 AM [facility] BUN 14 5 - 25 mg/dL LAB CHEMISTRY METHOD 11/28/2024 11:25 AM [facility] Creatinine 0.67 0.50 - 1.10 mg/dL LAB CHEMISTRY METHOD 11/28/2024 11:25 AM [facility] eGFR 88 >=60 mL/min/1. 73m2 LAB CHEMISTRY METHOD 11/28/2024 11:25 AM [facility] Comment:Calculation based on the??Chronic Kidney Disease Epidemiology Collaboration (CKD-EPI) equation refit??without adjustment for race. BUN/Creatinine Ratio 20.9 LAB CHEMISTRY METHOD 11/28/2024 11:25 AM [facility] Calcium 8.4(L) 8.5 - 10.5 mg/dL LAB CHEMISTRY METHOD 11/28/2024 11:25 AM [facility] AST (SGOT) 14 10 - 42 unit/L LAB CHEMISTRY METHOD 11/28/2024 11:25 AM [facility] ALT (SGPT) 14 10 - 60 unit/L LAB CHEMISTRY METHOD 11/28/2024 11:25 AM [facility] Alkaline Phosphatase 74 42 - 121 unit/L LAB CHEMISTRY METHOD 11/28/2024 11:25 AM [facility] Total Protein 6.5 6.0 - 8.0 g/dL LAB CHEMISTRY METHOD 11/28/2024 11:25 AM [facility] Albumin 3.2 3.2 - 5.0 g/dL LAB CHEMISTRY METHOD 11/28/2024 11:25 AM [facility] Total Bilirubin 0.4 0.0 - 1.4 mg/dL LAB CHEMISTRY METHOD 11/28/2024 11:25 AM [facility] Blood Venous blood specimen / Unknown Venipuncture / Unknown 11/28/2024 7:25 AM EDT 11/28/2024 8:51 AM EDT us Giovanni Coffey MD LAB BLOOD ORDERABLES Final Resul t [facility] [address] [place] [address], * (ABNORMAL) Complete blood count (11/28/2024 7:25 AM EDT) WBC 3.8(L) 4.8 - 10.8 K/mcL LAB HEMETOLOGY METHOD 11/28/2024 9:16 AM EDT [facility] RBC 3.60(L) 3.80 - 4.80 M/mcL LAB HEMETOLOGY METHOD 11/28/2024 9:16 AM EDT [facility] Hemoglobin 11.3(L) 11.5 - 16.0 g/dL LAB HEMETOLOGY METHOD 11/28/2024 9:16 AM EDT [facility] Hematocrit 34.5(L) 35.0 - 47.0 % LAB HEMETOLOGY METHOD 11/28/2024 9:16 AM EDT [facility] MCV 95.6 79.0 - 98.0 FL LAB HEMETOLOGY METHOD 11/28/2024 9:16 AM EDT [facility] MCH 31.3 27.0 - 32.0 pcg LAB HEMETOLOGY METHOD 11/28/2024 9:16 AM EDT [facility] MCHC 32.8 32.0 - 37.0 g/dL LAB HEMETOLOGY METHOD 11/28/2024 9:16 AM EDT [facility] RDW 13.6 11.0 - 15.0 % LAB HEMETOLOGY METHOD 11/28/2024 9:16 AM EDT [facility] Platelets 212 130 - 400 K/mcL LAB HEMETOLOGY METHOD 11/28/2024 9:16 AM EDT [facility] MPV 10.5 7.0 - 11.0 FL LAB HEMETOLOGY METHOD 11/28/2024 9:16 AM EDT [facility] NRBC 0.0 <1.0 % LAB HEMETOLOGY METHOD 11/28/2024 9:16 AM EDT [facility] NRBC Absolute 0.00 <0.10 K/mcL LAB HEMETOLOGY METHOD 11/28/2024 9:16 AM EDT [facility] Blood Venous blood specimen / Unknown Venipuncture / Unknown 11/28/2024 7:25 AM EDT 11/28/2024 8:51 AM EDT Giovanni Coffey MD LAB BLOOD ORDERABLES Final Resul t Performing Organization Address City/[facility]/ZIP Co de Phone Number [facility] [address] [place] [address], [place] [phone] * C-reactive protein (11/28/2024 7:25 AM EDT) C-Reactive Protein <0.29 <=0.50 mg/dL LAB CHEMISTRY METHOD 11/28/2024 9:55 AM EDT [facility] Blood Venous blood specimen / Unknown Venipuncture / Unknown 11/28/2024 7:25 AM EDT 11/28/2024 8:51 AM EDT Giovanni Coffey MD LAB BLOOD ORDERABLES Final Resul t [facility] [address] [place] [address], [place] [phone] documented in this encounter Visit Diagnoses Diagnosis Essential (primary) hypertension Unspecified essential hypertension Hyperlipidemia, unspecified Unspecified osteoarthritis, unspecified site Encounter for other orthopedic aftercare documented in this encounter Care Teams Transition Lead Relationship Specialty Start Date End Date Carlita Villegas MD [address] [place] [address] PCP - General 08/25/22 documented as of this encounter
--- OUTSIDE RECORDS SUMMARY | 2024-12-08 15:18 | XMS_ITS | Encounter Summary ---
Author Organization [facility] Address [address] [place] [address] Care Team Providers Care Radiological Engineer Name Role Phone Carlita Villegas MD Primary Care Provider [phone] Encounter Details Date Type Department Care Team (Late st Contact Info) Description 10/30/2024 Lab Requisition [facility] - Main Lab 299 [facility] [place] [address] Giovanni Coffey MD [address] [place] [address], [phone] Essential (primary) hypertension; Hyperlipidemia, unspecified; Unspecified [...] 10:00 AM EST Office Visit Endocrinology - [place] [address] [place], [place] [phone] Gisell Villegas PA [address] [place], [place] 08/26/2025 10:00 AM EST Office Visit Vascular Surgery - [place] [address] [place] [address] Priya Lopez MD [address] [place] [address] documented as of this encounter Procedures Procedure [...] mmol/L LAB CHEMISTRY METHOD 10/31/2024 12:31 PM [facility] Potassium 4.3 3.5 - 5.5 mmol/L LAB CHEMISTRY METHOD 10/31/2024 12:31 PM [facility] Chloride 104 96 - 110 mmol/L LAB CHEMISTRY METHOD 10/31/2024 12:31 PM [facility] CO2 30 21 - 32 mmol/L LAB CHEMISTRY METHOD 10/31/2024 12:31 PM [facility] Anion Gap 4 3 - 11 LAB CHEMISTRY METHOD 10/31/2024 12:31 PM [facility] Glucose 122(H) 70 - 100 mg/dL LAB CHEMISTRY METHOD 10/31/2024 12:31 PM [facility] BUN 17 5 - 25 mg/dL LAB CHEMISTRY METHOD 10/31/2024 12:31 PM [facility] Creatinine 0.75 0.50 - 1.10 mg/dL LAB CHEMISTRY METHOD 10/31/2024 12:31 PM [facility] eGFR 81 >=60 mL/min/1. 73m2 LAB CHEMISTRY METHOD 10/31/2024 12:31 PM [facility] Comment:Calculation based on the??Chronic Kidney Disease Epidemiology Collaboration (CKD-EPI) equation refit??without adjustment for race. BUN/Creatinine Ratio 22.7 LAB CHEMISTRY METHOD 10/31/2024 12:31 PM [facility] Calcium 9.2 8.5 - 10.5 mg/dL LAB CHEMISTRY METHOD 10/31/2024 12:31 PM [facility] AST (SGOT) 43(H) 10 - 42 unit/L LAB CHEMISTRY METHOD 10/31/2024 12:31 PM [facility] ALT (SGPT) 60 10 - 60 unit/L LAB CHEMISTRY METHOD 10/31/2024 12:31 PM [facility] Alkaline Phosphatase 193(H) 42 - 121 unit/L LAB CHEMISTRY METHOD 10/31/2024 12:31 PM [facility] Total Protein 6.8 6.0 - 8.0 g/dL LAB CHEMISTRY METHOD 10/31/2024 12:31 PM [facility] Albumin 3.3 3.2 - 5.0 g/dL LAB CHEMISTRY METHOD 10/31/2024 12:31 PM [facility] Total Bilirubin 0.5 0.0 - 1.4 mg/dL LAB CHEMISTRY METHOD 10/31/2024 12:31 PM [facility] Blood Venous blood specimen / Unknown Venipuncture / Unknown 10/31/2024 8:53 AM EDT 10/31/2024 10:21 AM EDT us Giovanni Coffey MD LAB BLOOD ORDERABLES Final Resul t [facility] [address] [place] [address], * (ABNORMAL) Complete blood count (10/31/2024 8:53 AM EDT) WBC 5.0 4.8 - 10.8 K/mcL LAB HEMETOLOGY METHOD 10/31/2024 11:12 AM EDT [facility] RBC 3.70(L) 3.80 - 4.80 M/mcL LAB HEMETOLOGY METHOD 10/31/2024 11:[facility] Hemoglobin 11.5 11.5 - 16.0 g/dL LAB HEMETOLOGY METHOD 10/31/2024 11:12 [facility] Hematocrit 35.8 35.0 - 47.0 % LAB HEMETOLOGY METHOD 10/31/2024 11:12 AM [facility] MCV 97.8 79.0 - 98.0 FL LAB HEMETOLOGY METHOD 10/31/2024 11:12 AM [facility] MCH 31.4 27.0 - 32.0 pcg LAB HEMETOLOGY METHOD 10/31/2024 11:12 AM [facility] MCHC 32.1 32.0 - 37.0 g/dL LAB HEMETOLOGY METHOD 10/31/2024 11:12 AM EDT [facility] RDW 13.3 11.0 - 15.0 % LAB HEMETOLOGY METHOD 10/31/2024 11:12 AM EDT [facility] Platelets 283 130 - 400 K/mcL LAB HEMETOLOGY METHOD 10/31/2024 11:12 AM [facility] MPV 10.4 7.0 - 11.0 FL LAB HEMETOLOGY METHOD 10/31/2024 11:12 AM EDT [facility] NRBC 0.0 <1.0 % LAB HEMETOLOGY METHOD 10/31/2024 11:12 AM EDT [facility] NRBC Absolute 0.00 <0.10 K/mcL LAB HEMETOLOGY METHOD 10/31/2024 11:12 AM EDT [facility] Blood Venous blood specimen / Unknown Venipuncture / Unknown 10/31/2024 8:53 AM EDT 10/31/2024 10:21 AM EDT Giovanni Coffey MD LAB BLOOD ORDERABLES Final Resul t Performing Organization Address [facility]/ZIP Co de Phone Number [facility] [address] [place] [address], [place] [phone] * (ABNORMAL) C-reactive protein (10/31/2024 8:53 AM EDT) C-Reactive Protein 1.02(H) <=0.50 mg/dL LAB CHEMISTRY METHOD 10/31/2024 12:33 PM EDT [facility] Blood Venous blood specimen / Unknown Venipuncture / Unknown 10/31/2024 8:53 AM EDT 10/31/2024 10:21 AM EDT Giovanni Coffey MD LAB BLOOD ORDERABLES Final Resul t Performing Organization Address City/[facility]/ZIP Co de Phone Number [facility] [address] [place] [address], [place] [phone] documented in this encounter Visit Diagnoses Diagnosis Essential (primary) hypertension Unspecified essential hypertension Hyperlipidemia, unspecified Unspecified osteoarthritis, unspecified site Encounter for other orthopedic aftercare documented in this encounter Care Teams Radiological Engineer Relationship Specialty Start Date End Date Carlita iVllegas MD [address] [place] [address] PCP - General 1/20/23 documented as of this encounter
== END 2024-12-08 14:43 | disposition home or self-care (01) ==
LOC: HO.HOS 13:44
DX: S32.10XA Unspecified fracture of sacrum, initial encounter for closed fracture (principal); S32.599A Other specified fracture of unspecified pubis, initial encounter for closed fracture
CPT/HCPCS: 99024

== ENCOUNTER → 2024-12-08 13:46 | Outpatient (BNV) | payer MEDICARE, SELFPAY | PROVIDERS: Visit Provider Radiology Diagnostic Radiology | DX: M25.559 Pain in unspecified hip (principal); S52.501D Unspecified fracture of the lower end of right radius, subsequent encounter for closed fracture with routine healing | CPT/HCPCS: 72170; 73110 ==

== ENCOUNTER 2025-01-05 07:47 | Outpatient (REF) | payer MEDICARE, SELFPAY ==
--- NOTE | ~2025-01-05 | XR_ITS ---
EXAMINATION: XR WRIST 3 OR MORE VIEWS RIGHT HISTORY: M25.531 - Pain in right wrist COMPARISON: Comparison is made with the prior examination dated 12/08/2024. FINDINGS: Three views of the right wrist are submitted. The bones are osteopenic. The patient is again noted to be status post internal fixation of a fracture of the distal radial metaphysis with a sideplate and multiple orthopedic screws. The fracture line is visible. An oblique mildly displaced fracture of the distal ulna metaphysis is also unchanged in appearance. There is a displaced fracture of the ulnar styloid. The joint spaces are preserved. The soft tissues are unremarkable. XR/XR wrist RT min 3V IMPRESSION: Internally fixed fracture of the distal radial metaphysis without significant change. Mildly displaced oblique fracture of the distal ulna and ulnar styloid without change. Electronically signed by: Iain Yen MD 01/05/2025 03:25 PM EDT
--- NOTE | ~2025-01-05 | XR_ITS ---
EXAMINATION: XR PELVIS 1-2 VIEWS HISTORY: M25.559 - Pain in unspecified hip COMPARISON: Comparison is made with the prior examination dated 12/08/2024. FINDINGS: A single AP view of the pelvis is submitted. The bones are osteopenic. Again seen are healing fractures of the right superior pubic ramus and pubic symphysis. No new fracture is seen. There is mild narrowing of both hip joints. XR/XR pelvis 1-2V IMPRESSION: Healing fractures of the right superior pubic ramus and pubic symphysis. Electronically signed by: Iain Yen MD 01/05/2025 03:27 PM EDT
--- OUTSIDE RECORDS SUMMARY | 2025-01-05 07:50 | XMS_ITS | Encounter Summary ---
Author Organization [facility] Address [address] [place] [address] Care Team Providers Care Assistant Infant Toddler Teacher Name Role Phone Carlita Villegas MD Primary Care Provider [phone] Encounter Details Date Type Department Care Team (Late Contact Info) Description 11/07/2024 Lab Requisition [facility] - Main Lab 299 [facility] [place] [address] Giovanni Coffey MD [address] [place] [address], [phone] Essential (primary) hypertension Social History Tobacco [...] 10:00 AM EST Office Visit Endocrinology - [place] [address] [place] [address] Gisell Villegas PA [address] [place] [address] 08/26/2025 10:00 AM EST Office Visit Vascular Surgery - [place] [address] [place] [phone] Priya Lopez MD [address] [place] [address] documented as of this encounter Procedures Procedure Name Priority Date/Time Associated Diagnosis Comments URINALYSIS WITH REFLEX MICROSCOPIC Routine 11/06/2024 9:28 PM EDT Essential (primary) hypertension URINALYSIS WITH REFLEX MICROSCOPIC Routine 11/06/2024 9:28 PM EDT Essential (primary) hypertension CULTURE URINE Routine 11/06/2024 9:28 PM EDT Essential (primary) hypertension documented in this encounter Results * (ABNORMAL) Urinalysis with reflex microscopic (11/06/2024 9:28 PM EDT) Specific [place] Urine 1.014 1.003 - 1.030 LAB URINALYSIS [...] MD LAB URINE ORDERABLES Final Resul t [facility] [address] [place] [address], * (ABNORMAL) Culture urine (11/06/2024 9:28 PM EDT) Culture, Urine >100,000 CFU/mL Escherichia coli(A) DANO 11/09/2024 9:22 AM EDT [facility] Urine Urine specimen from urethra [...] MICROBIOLOGY - GENERAL ORDER ERWIN Final Result [facility] [address] [place] [address], documented in this encounter Visit Diagnoses Diagnosis Essential (primary) hypertension Unspecified essential hypertension documented in this encounter Care Teams Assistant Infant Toddler Teacher Relationship Specialty Start Date End Date Carlita Villegas MD [address] [place] [id number] PCP - General 08/25/22 documented as of this encounter
== END 2025-01-05 07:48 | disposition home or self-care (01) ==
LOC: HO.HOSX 07:47
DX: M25.551 Pain in right hip (principal); M25.531 Pain in right wrist; S32.10XA Unspecified fracture of sacrum, initial encounter for closed fracture; S32.511A Fracture of superior rim of right pubis, initial encounter for closed fracture; W01.0XXA Fall on same level from slipping, tripping and stumbling without subsequent striking against object, initial encounter; Y93.01 Activity, walking, marching and hiking; Y92.009 Unspecified place in unspecified non-institutional (private) residence as the place of occurrence of the external cause; Y99.9 Unspecified external cause status
CPT/HCPCS: 72170; 73110; 99212

== ENCOUNTER 2025-01-05 13:15 | Outpatient (AMB) | payer MEDICARE, SELFPAY ==
--- NOTE | 2025-01-05 13:38 | A.OFFVIS_ITS ---
Vital Signs 01/05/25 13:40 Height 5 ft 3 in Weight 140 lb BMI 24.8 Intake Visit Reasons: OV-pelvic fractures on the right side Intake Note: Dayna is a 79 year old female who presents today for a follow up visit for her right sacral ala fracture and right superior pubic ramus fracture, DOI: 10/10/2024. State she has had no pain in her pelvic area for the last 6 weeks. Allergies azithromycin Adverse Reaction (Verified 01/05/25 13:33) Stomach Upset doxycycline Adverse Reaction (Verified 01/05/25 13:33) Gastrointestinal Upset sulfamethoxazole [From Bactrim] Adverse Reaction (Verified 01/05/25 13:33) Stomach Upset trimethoprim [From Bactrim] Adverse Reaction (Verified 01/05/25 13:33) Stomach Upset HPI HPI OV-pelvic fractures on the right side: Details: Dayna is a 79 year old female who presents today for a follow up visit for her ri ght sacral ala fracture and right superior pubic ramus fracture, DOI: 10/10/2024. State she has had no pain in her pelvic area for the last 6 weeks. No other acute complaints or concerns at this time. [facility] Medical History Enlarged aorta Osteoporosis Allergies Elevated cholesterol PONV (postoperative nausea and vomiting) HTN (hypertension) Surgical History Hx of colonoscopy Hx of left cataract extraction Hx of hysterectomy Hx of tonsillectomy Social History Household Members: None Housing: House Do you presently have visiting nurse or other home services: No Unable to assess alcohol history related to: Unknown Alcohol intake: never Patient Tobacco Use Status: Former Tobacco user Second Hand Smoke Exposure: No Advance Directives Date on File: 11/29/23 service: No Current occupational status: retired Current occupation: right hand dominant Review of Systems Const All systems reviewed & are unremarkable except as noted in HPI and below Physical Exam Vital Signs: BMI result Body Mass Index 24.8 Extrem Other: Patient's right hip, pelvis, upper right leg normal to inspection No erythema, ecchymosis, edema noted No lacerations, abrasions, open areas No evidence of infection Patient was able to flex and extend the digits of the right foot fully and without difficulty Distal sensation intact Capillary refill brisk Results Reviewed Results Reviewed: X-rays obtained in the office today and independently reviewed by me, Luke López PA-C, demonstrate nondisplaced fractures of right superior pubic ramus and right sacral ala in very similar alignment to previous x-rays taken in the emergency department with evidence of good interval bony healing. Assessment & Plan Assessment & Plan (1) Fracture of sacrum: Code(s): S32.10XA - Unspecified fracture of sacrum, initial encounter for closed fracture Category: Medical (2) Closed fracture of pubic ramus: Code(s): S32.599A - Other specified fracture of unspecified pubis, initial encounter for closed fracture Category: Medical Plan 1. Right sacral ala fracture 2. Right superior pubic ramus fracture Date of injury 10/10/2024 Patient is educated about these injuries Patient was educated about the typical recovery course At this time, patient was informed that she can begin weight-bearing as tolerated Should continue working with PT, when discharged from the have she should be reach out to us for referral to outpatient PT Patient expresses understanding of this and is amenable to this plan Follow-up in 6 weeks with repeat x-rays for reassessment, sooner with any acute concerns Orders: Orders XR pelvis 1-2V Today M25.559 - Pain in unspecified hip Coding Level of Care Code Global (72838) Diagnoses Fracture of sacrum S32.10XA Closed fracture of pubic ramus S32.599A
[2025-01-05 13:40] VITALS: BMI 24.8
== END 2025-01-05 14:59 | disposition home or self-care (01) ==
LOC: HO.HOS 13:15
DX: S32.10XA Unspecified fracture of sacrum, initial encounter for closed fracture (principal); S32.599A Other specified fracture of unspecified pubis, initial encounter for closed fracture
CPT/HCPCS: 99024

== ENCOUNTER 2025-01-05 13:15 | Outpatient (AMB) | payer MEDICARE, SELFPAY ==
[2025-01-05 13:33] VITALS: BMI 24.8
--- NOTE | 2025-01-05 13:33 | MHC.OFFVIS ---
Vital Signs 01/05/25 13:33 Height 5 ft 3 in Weight 140 lb BMI 24.8 Intake Visit Reasons: PO-I&D &ORIF of RT distal radius and ulna-10/13/24 Intake Note: Dayna is an 79 year old female who presents today for her post operative appointment status post right distal radius and ulnar shaft ORIF and I&D DOS: 10/13/[address] Debbie Zamorano. States she is doing well, very little pain and discomfort. Xrays updated in office. Allergies azithromycin Adverse Reaction (Verified 01/05/25 13:33) Stomach Upset doxycycline Adverse Reaction (Verified 01/05/25 13:33) Gastrointestinal Upset sulfamethoxazole [From Bactrim] Adverse Reaction (Verified 01/05/25 13:33) Stomach Upset trimethoprim [From Bactrim] Adverse Reaction (Verified 01/05/25 13:33) Stomach Upset HPI HPI PO-I&D &ORIF of RT distal radius and ulna-10/13/24: Details: Dayna is an 79 year old female who presents today for her post operative appointment status post right distal radius and ulnar shaft ORIF and I&D DOS: 10/13/[address] Debbie Zamorano. States she is doing well, very little pain and discomfort. Patient has been wearing the Velcro wrist splint as discussed at previous visit. Xrays updated in office. [facility] Medical History Enlarged aorta Osteoporosis Allergies Elevated cholesterol PONV (postoperative nausea and vomiting) HTN (hypertension) Surgical History Hx of colonoscopy Hx of left cataract extraction Hx of hysterectomy Hx of tonsillectomy Social History Household Members: None Housing: House Do you presently have visiting nurse or other home services: No Unable to assess alcohol history related to: Unknown Alcohol intake: never Patient Tobacco Use Status: Former Tobacco user Second Hand Smoke Exposure: No Advance Directives Date on File: 11/29/23 service: No Current occupational status: retired Current occupation: right hand dominant Review of Systems Const All systems reviewed & are unremarkable except as noted in HPI and below Physical Exam Vital Signs: BMI result Body Mass Index 24.8 Extrem Other: Patient is alert, oriented, and in no acute distress. Neuro: Normal sensation of the tips of all digits of the right hand at this time Vascular: Cap refill brisk Pain: No tenderness to palpation about fracture sites on the right wrist ROM: Patient is able to make closed fist and extend all digits right fully Skin: Well approximated well healing incision site noted on the volar right wrist Well approximated and well healing laceration site on the ulnar right wrist Incision sites well healed General: No ecchymosis, erythema, or evidence of infection. Psych: Appears grossly normal Affect normal Attitude cooperative Results Reviewed Results Reviewed: X-rays obtained in the office today and independently reviewed by me, Luke López PA-C, demonstrate surgically reduced fractures of the right distal radius and distal ulna with all orthopedic hardware in place and in satisfactory clinical alignment and with good evidence of interval bony healing Assessment & Plan Assessment & Plan (1) Fracture of radius and ulna, open: Code(s): S52.90XB - Unspecified fracture of unspecified forearm, initial encounter for open fracture type I or II; S52.209B - Unspecified fracture of shaft of unspecified ulna, initial encounter for open fracture type I or II Category: Medical Plan 1. Open right distal rupture 2. Open right distal ulna fracture Status post ORIF DOS 10/13/2024 Patient appears to be recovering well postoperatively Patient was educated about the typical recovery course At this time, patient was removed from cast and placed into a Velcro wrist splint Patient was educated that she should increase to an approximately 10 lb weight limit in the right wrist over the next 3-4 weeks, and gradually increase to full normal lifting after that Velcro wrist splint to be worn with high-risk daytime activities Patient was amenable to this plan Follow-up as needed Orders: Orders XR wrist RT min 3V Today M25.531 - Pain in right wrist Coding Level of Care Code Global (20516) Diagnoses Fracture of radius and ulna, open S52.90XB; S52.209B
== END 2025-01-05 14:57 | disposition home or self-care (01) ==
LOC: HO.HOS 13:15
DX: S52.90 Unspecified fracture of unspecified forearm (principal); S52.209B Unspecified fracture of shaft of unspecified ulna, initial encounter for open fracture type I or II
CPT/HCPCS: 99024

== ENCOUNTER → 2025-01-05 13:17 | Outpatient (BNV) | payer MEDICARE, SELFPAY | PROVIDERS: Visit Provider Radiology Diagnostic Radiology | DX: M25.559 Pain in unspecified hip (principal); M25.531 Pain in right wrist | CPT/HCPCS: 72170; 73110 ==

== ENCOUNTER 2025-02-19 13:01 | Outpatient (AMB) | payer MEDICARE, SELFPAY ==
--- NOTE | 2025-02-19 13:13 | MHC.OFFVIS ---
Vital Signs 02/19/25 13:14 Height 5 ft 3 in Weight 140 lb BMI 24.8 Intake Visit Reasons: OV-pelvic fractures on the right side-w/xrays Intake Note: Dayna is a 79 year old female who presents today for a follow up visit for her right sacral ala fracture and right superior pubic ramus fracture, DOI: 10/10/2024. At her last visit patient was advise to work with P.T. Patient states she is doing well and has no concerns. Allergies azithromycin Adverse Reaction (Verified 02/19/25 13:15) Stomach Upset doxycycline Adverse Reaction (Verified 02/19/25 13:15) Gastrointestinal Upset sulfamethoxazole (From Bactrim) Adverse Reaction (Verified 02/19/25 13:15) Stomach Upset trimethoprim (From Bactrim) Adverse Reaction (Verified 02/19/25 13:15) Stomach Upset HPI HPI OV-pelvic fractures on the right side-w/xrays: Details: Dayna is a 79 year old female who presents today for a follow up visit for her right sacral ala fracture and right superior pubic ramus fracture, DOI: 10/10/2024. At her last visit patient was advise to work with P.T. Patient states she is doing well and has no concerns. [facility] Medical History Enlarged aorta Osteoporosis Allergies Elevated cholesterol PONV (postoperative nausea and vomiting) HTN (hypertension) Surgical History Hx of colonoscopy Hx of left cataract extraction Hx of hysterectomy Hx of tonsillectomy Social History Household Members: None Housing: House Do you presently have visiting nurse or other home services: No Unable to assess alcohol history related to: Unknown Alcohol intake: never Patient Tobacco Use Status: Former Tobacco user Second Hand Smoke Exposure: No Advance Directives Date on File: 11/29/23 service: No Current occupational status: retired Current occupation: right hand dominant Review of Systems Const All systems reviewed & are unremarkable except as noted in HPI and below Physical Exam Vital Signs: BMI result Body Mass Index 24.8 Extrem Other: Patient's right hip, pelvis, upper right leg normal to inspection No erythema, ecchymosis, edema noted No lacerations, abrasions, open areas No evidence of infection Patient was able to flex and extend the digits of the right foot fully and without difficulty Distal sensation intact Capillary refill brisk Results Reviewed Results Reviewed: X-rays obtained in the office today and independently reviewed by me, Luke López PA-C, demonstrate nondisplaced fractures of right superior pubic ramus and right sacral ala in very similar alignment to previous x-rays taken in the emergency department with evidence of good interval bony healing. Assessment & Plan Assessment & Plan (1) Fracture of sacrum: Code(s): S32.10XA - Unspecified fracture of sacrum, initial encounter for closed fracture Category: Medical (2) Closed fracture of pubic ramus: Code(s): S32.599A - Other specified fracture of unspecified pubis, initial encounter for closed fracture Category: Medical Plan 1. Right sacral ala fracture 2. Right superior pubic ramus fracture Date of injury 10/10/2024 Patient is educated about these injuries Patient was educated about the typical recovery course At this time, patient was informed that she can continue with weight-bearing as tolerated Continue working with PT Follow-up in 8-10 weeks with repeat x-rays for reassessment, sooner with any acute concerns Orders: Orders XR pelvis 1-2V Today M25.559 - Pain in unspecified hip Coding Level of Care Code Est Pt Level 3 (16472) Diagnoses Fracture of sacrum S32.10XA Closed fracture of pubic ramus S32.599A
[2025-02-19 13:14] VITALS: BMI 24.8
--- OUTSIDE RECORDS SUMMARY | 2025-02-19 13:32 | XMS_ITS | Encounter Summary ---
Author Organization [facility] Address [address] [place] [address] Care Team Providers Care [employer] Name Role Phone Carlita iVllegas MD Primary Care Provider [phone] Encounter Details Date Type Department Care Team (Late st Contact Info) Description 11/07/2024 Lab Requisition [facility] - Main Lab [address] [facility] [place] [address] Giovanni Coffey MD [address] [place] [address], [phone] Essential (primary) hypertension Social History Tobacco [...] Care Team (Late st Contact Info) Description 04/15/2025 8:30 AM EDT Office Visit Adult Medicine [address] [phone] Carlita Villegas MD [address] [place] [phone] 06/17/2025 10:00 AM EST Office Visit [address], [place] [phone] Gisell Villegas PA [address] [place] [address] 08/26/2025 10:00 AM EST Office Visit Vascular Surgery - [place] [address] [place] [address] Priya Lopez MD [address] [place] [address] documented as of this encounter Procedures Procedure Name Priority Date/Time Associated Diagnosis Comments URINALYSIS WITH REFLEX MICROSCOPIC Routine 11/06/2024 9:28 PM EDT Essential (primary) hypertension URINALYSIS WITH REFLEX MICROSCOPIC Routine 11/06/2024 9:28 PM EDT Essential (primary) hypertension CULTURE URINE Routine 11/06/2024 9:28 PM EDT Essential (primary) hypertension documented in this encounter Results * (ABNORMAL) Urinalysis with reflex microscopic (11/06/2024 9:28 PM EDT) Specific [place] Urine 1.014 1.003 - 1.030 LAB URINALYSIS - AUTOMATED METHOD 11/07/2024 11:48 AM [facility] pH, Urine 6.0 5.0 - 8.0 pH LAB URINALYSIS - AUTOMATED METHOD 11/07/2024 11:48 AM [facility] Leukocytes, Urine Large(A) Negative LAB URINALYSIS - AUTOMATED METHOD 11/07/2024 11:48 AM [facility] Nitrite, Urine Positive(A) Negative LAB URINALYSIS - AUTOMATED METHOD 11/07/2024 11:48 AM [facility] Protein, Urine 30(A) <=Trace mg/dL LAB URINALYSIS - AUTOMATED METHOD 11/07/2024 11:48 AM [facility] Glucose, Urine Negative Negative mg/dL LAB URINALYSIS - AUTOMATED METHOD 11/07/2024 11:48 AM [facility] Ketones, Urine Negative Negative mg/dL LAB URINALYSIS - AUTOMATED METHOD 11/07/2024 11:48 AM [facility] Urobilinogen , Urine 0.2 0.2 - 1.0 mg/dL LAB URINALYSIS - AUTOMATED METHOD 11/07/2024 11:48 AM [facility] Bilirubin, Urine Negative Negative LAB URINALYSIS - AUTOMATED METHOD 11/07/2024 11:48 AM [facility] Blood, Urine Large(A) Negative LAB URINALYSIS - AUTOMATED METHOD 11/07/2024 11:48 AM [facility] RBC, Urine 7.7(H) 0 - 4 /HPF LAB URINALYSIS - AUTOMATED METHOD 11/07/2024 11:48 AM [facility] WBC, Urine 357.6(H) 0 - 4 /HPF LAB URINALYSIS - AUTOMATED METHOD 11/07/2024 11:48 AM [facility] Squamous Epithelial, Urine 12 0 - 60 /LPF LAB URINALYSIS - AUTOMATED METHOD 11/07/2024 11:48 AM [facility] Bacteria, Urine Many(A) Negative /HPF LAB URINALYSIS - AUTOMATED METHOD 11/07/2024 11:48 AM [facility] Hyaline Casts, Urine 0.4 0 - 3 /LPF LAB URINALYSIS - AUTOMATED METHOD 11/07/2024 11:48 AM [facility] Urine Urine specimen from urethra / Unknown Non-blood Collection / Unknown 11/06/2024 9:28 PM EDT 11/07/2024 10:51 AM EDT us Giovanni Coffey MD LAB URINE ORDERABLES Final Resul t [facility] [address] [place] [address], [place] [phone] * (ABNORMAL) Culture urine (11/06/2024 9:28 PM EDT) Culture, Urine >100,000 CFU/mL Escherichia coli(A) DANO 11/09/2024 9:22 AM EDT [facility] Urine Urine [...] MICROBIOLOGY - GENERAL ORDER ERWIN Final Result [facility] [address] [place] [address], [place] [phone] documented in this encounter Visit Diagnoses Diagnosis Essential (primary) hypertension Unspecified essential hypertension documented in this encounter Care Teams [employer] Relationship Specialty Start Date End Date Carlita Villegas MD [address] [place] [phone] PCP - General 08/25/22 documented as of this encounter
--- OUTSIDE RECORDS SUMMARY | 2025-02-19 13:32 | XMS_ITS | Patient Health Record ---
Author Organization [facility] Address [address] [place] [address] Support Name Relationship Address Phone KEVIN PFEIFFER Guarantor Unknown [phone] Reason For Referral No Information Medications Medication SIG (Take, Route, Frequency, Duration) Notes Start Date End Date Status Calcium-Carb 600 + D 1 ORAL daily; Duration: -3 Bjorn-MJ Active Anita-D 12 Hour 60-120 1 ORAL twice da saravanan; Duration: -3 Bjorn-MJ 01/12/2012 Active Evista 60MG 1 ORAL daily; Duration: -3 Bjorn-MJ 08/30/2012 Active Multivitamins 1 ORAL daily; Duration: -3 Bjorn-MJ 2 Active Problems Problem Type SNOMED Code ICD Code Onset Dates Problem Status W/U Status Risk Notes Problem Osteoarthritis (560705076) Osteoarthrosis, unspecified whether generalized or localized, unspecified site (715.90) Active confirmed Major Problem Osteoporosis (58023646) Unspecified osteoporosis (733.00) Active confirmed Major Problem Gynecological examination normal ([id number]) Routine gynecological examination (V72.31) Active confirmed Diag Plan Of Treatment No Information Insurance Providers Payer Name Payer Address Payer Phone Subscriber Number Group Number Insured Name Patient Relationship to Insured Coverage Start Date Coverage End Date [employer] [facility] [address] [place] [address] [id number] KEVIN PFEIFFER Self - patient is the insured
--- OUTSIDE RECORDS SUMMARY | 2025-02-19 13:32 | XMS_ITS | Data Portability ---
Author Organization [facility], Main Office Address [address] [facility] [address] [place] [address] Care Team Providers Care Alteration Hand Name Role Phone BRENDA GUZMAN - 2ND FLOOR OTHER MIESHA CHAN Primary Care Provider [phone] Assessment Encounter Date Assessment Date Assessment LastModified by Organization Details LastModified Time 01/23/2025 01/23/2025 spent greater than Not available 01/23/2025 10:34:44 Plan of Treatment Reminders Order Date Submit Date Provider Last Modified By Organization Details Last Modified Time Details Appointments None recorded. Lab None recorded. Referral None recorded. Procedures None recorded. Surgeries None recorded. Imaging None recorded. Medication Orders losartan 50 mg tablet 2024 025 [facility]/Pharmacy #[id number], [facility] [place], [address], 10:33:59 Eliquis 2.5 mg tablet 2024 025 [id number] [address] [place], [address], 10:34:00 pravastatin 10 mg tablet 2024 025 [id number] [address] [place], [address], 10:33:59 Patient TargetsNo targets recorded. Patient InstructionsNo instructions recorded. Reason for Referral None Reported. Problems Name Problem SNOMED Code Status Onset Date Resolution Date Notes Provider Name and Address Organization Details Recorded Time Hypertensiv e disorder 11282014 Active 2024 Estrellita Damico NP [address], [address], [place], [address], [email or web address] 5 10:05:42 Open reduction of fracture of radius Active 2024 Etsrellita Damico NP [address], [address], [place], [address], [email or web address] 5 10:06:12 Fracture of radius 44396181 Active 2024 Estrellita Damico NP [address], [address], [place], [address], [email or web address] 5 10:06:50 Closed fracture of pubic ramus Active 2024 Estrellita Damico NP [address], [address], [place], [address], [email or web address] 5 10:07:14 Hyperlipide desiree 25525604 Active 2024 Estrellita Damico NP [address] [facility], [address], [place], [address], [email or web address] 5 10:07:30 At high risk for fall 7315708664250 13140 Active 2024 Estrellita Damico NP [address], [place], [address], [email or web address] 5 10:07:56 Asthenia 09028213 Active 2024 Estrellita Damico NP [address] [facility], [address], [place], [address], [email or web address] 5 10:08:03 Osteoporosi s 48632561 Active 2024 Estrellita Damico NP [address] , [address], [place], [address], [email or web address] 5 10:11:58 Problem Notes None recorded. Medical Equipment None Reported. Allergies Allergen ID Allergen Name Allergen Category Reaction Reaction Severity Criticality Documentation Date Start Date Code Code System Note Provider Name and Address Organization Details Recorded Time 08750 [facility] medicatio n Not available Not available Not available 10/17/20242010 09468 RxNorm unrec ogniz ed react ion (text : Nause a And Vomit ing, code: 50310 000) (from exter nal sourc e) Dominique Boone MD [address] [place] [address], [address], [place], [address], [facility] 5 18:12:04 36034 doxycycli ne Not available Not available Not available Not available 10/17/20242013 3640 RxNorm unrec ogniz ed react ion (text : Nause a And Vomit ing, code: 56824 000) (from exter nal sourc e) Dominique Boone MD [address] [place] [address], [address], [place], [address], [facility] 5 18:12:18 54728 Cipro medicatio n nausea Not available unabletoasse 11/21/202487287 3 RxNorm Estrellita Damico NP [address] [place] [address], [address], [place], [address], [facility] 5 20:03:17 11509 ciproflox acin hydrochlo ride medicatio n headache Not available Not available 12/02/20242012 38704 RxNorm unrec ogniz ed react ion (text : Nause a And Vomit ing, code: 13163 000) (from exter nal sourc e) Dominique Boone MD [address] [place] [address], [address], [place], [address], [facility] 5 18:12:10 14639 Substance with sulfonami de structure and antibacte rial mechanism of action (substanc e) medicatio n Not available Not available Not available 12/02/20242005 30512 8003 SNOMED Dominique Boone MD [address] [place] [address], [address], [place], [address], [facility] 5 18:12:23 65231 sulfameth oxazole medicatio n Not available Not available Not available 12/02/20242024 59561 RxNorm unrec ogniz ed react ion (text : Stoma ch upset , code: 87708 9005) (from [facility]) Dominique Boone MD [address] [facility], [address], [place], [address], [email or web address] 18:12:28 12436 trimethop rim medicatio n Not available Not available Not available 12/02/20242024 24539 RxNorm unrec ogniz ed react ion (text : Stoma ch upset , code: 88412 9005) (from [facility]) Dominique Boone MD [address] [facility], [address], [place], [address], [facility] 5 18:12:32 Medications Name Sig Start Date Stop Date Status Note LastModified by Organization Details LastModified Time losartan 50 mg tablet Take 1 tablet every day by oral route. 025 active Not Available Not Available Not Avai lable pravastatin 10 mg tablet Take 1 tablet every day by oral route. 025 active Not Available Not Available Not Avai lable oxycodone 5 mg tablet Take 1 tablet every 24 hours by oral route as needed, for pain. 025 active Not Available Not Available Not Avai lable Eliquis 2.5 mg tablet Take 1 tablet twice a day by oral route. 025 active Not Available Not Available Not Avai lable Vitals Date Recorded Body height Heart rate Respiratory rate Body temperature Oxygen saturation Oxygen saturation in Arterial blood by Pulse oximetry Systolic And Diastolic Provider Name and Address Organization Details Last Updated DateTime 5 160.02 cm 78 /min 16 /min 97.5 [degF] 99 % 99 % 124/78 mm[Hg] CRISTIANE MNA NP [address] [facility], [address], [place], [address], [facility] 5 11:31:56 Date Recorded Body height Heart rate Respiratory rate Body temperature Oxygen saturation Oxygen saturation in Arterial blood by Pulse oximetry Systolic And Diastolic Provider Name and Address Organization Details Last Updated DateTime 5 160.02 cm 78 /min 16 /min 97.5 [degF] 99 % 99 % 124/78 mm[Hg] CRISTIANE MAN NP [address] [facility], [address], [place], [address], [email or web address] 5 09:13:37 Date Recorded Body height Heart rate Respiratory rate Body temperature Oxygen saturation Oxygen saturation in Arterial blood by Pulse oximetry Systolic And Diastolic Provider Name and Address Organization Details Last Updated DateTime 5 160.02 cm 78 /min 16 /min 97.8 [degF] 96 % 96 % 125/76 mm[Hg] CRISTIANE MAN NP [address] [facility], [address], [place], [address], [email or web address] 5 13:51:20 Date Recorded Body height Heart rate Respiratory rate Body temperature Oxygen saturation Oxygen saturation in Arterial blood by Pulse oximetry Systolic And Diastolic Provider Name and Address Organization Details Last Updated DateTime 5 160.02 cm 76 /min 18 /min 97.8 [degF] 97 % 97 % 125/76 mm[Hg] CRISTIANE MAN NP [address] [facility], [facility] [address], [place], [address], [email or web address] 5 10:44:17 Date Recorded Body height Body weight Body mass index (BMI) Heart rate Respiratory rate Body temperature Oxygen saturation Oxygen saturation in Arterial blood by Pulse oximetry Systolic And Diastolic Provider Name and Address Organization Details Last Updated DateTime 5 160.02 cm 51279.2 7 g 21.6 kg/m2 78 /min 16 /min 97.8 [degF] 97 % 97 % 125/76 mm[Hg] Estrellita Damico NP [address] [facility], [address], [place], [address], [email or web address] 5 07:52:03 Social History Question Answer Notes LastModified by Organizat ion Details LastModified Time Tobacco Smoking Status Former Smoker smoked for one yr in her 20s Estrellita Damico NP [address] [facility], [address], [place], [address], [email or web address] 10/17/2024 10:30:23 Do You Have An Advance Directive? Yes Information not available 12/02/2024 What Is Your Code Status? Full Code Information not available 12/02/2024 Where Do You Live? SingleLevelHouse Alone, Laundry In Basement. Information not available 12/02/2024 Legal Guardian? No Informati on not available 10/17/2024 Do You Have A Medical Power Of Skull Chopper? Yes Not Invoked Information not available 12/02/2024 [...] You Smoke? No Information not available 10/17/2024 Has Tobacco Cessation Counseling Been Provided? No N/a As Pt No Longer Smokes Information not available 12/02/2024 Sex: Female Functional Status Question Answer Note LastModified by Organizat ion Details LastModified Time How many times per week do you consume alcohol? Less than 1 time per week Information not available 10/17/2024 Do you use any illicit or recreational drugs? No Information not available 10/17/2024 Do you or have you ever used any other forms of tobacco or nicotine? No Information not available 10/17/2024 What is your level of alcohol consumption? Occasional very occ Information not available 10/17/2024 Mental Status None recorded. Family History Nothing [...] (COVID-19) vaccine, UNSPECIFIED 4 completed Valencia martin [facility] 10/17/2024 14:17:30 SARS-COV-2 (COVID-19) vaccine, UNSPECIFIED 1 completed Valencia Fredo null, [facility] 10/17/2024 14:17:52 SARS-COV-2 (COVID-19) vaccine, UNSPECIFIED 1 completed Valencia Fredo null, [facility] 10/17/2024 14:17:59 SARS-COV-2 (COVID-19) vaccine, UNSPECIFIED 1 completed Valencia Fredo [facility] 10/17/2024 14:18:07 SARS-COV-2 (COVID-19) vaccine, UNSPECIFIED 2 completed Valencia Fredo [facility] 10/17/2024 14:18:14 Td(adult) unspecified formulation 8 completed Valencia Fredo [facility] 10/17/2024 14:18:32 Pneumococcal conjugate PCV 13 6 completed Valencia Fredo [facility] 10/17/2024 14:18:45 Pneumococcal conjugate PCV 13 2 completed Valencia Fredo [facility] 10/17/2024 14:18:53 pneumococcal polysaccharide PPV23 4 completed Valencia Fredo [facility] 10/17/2024 14:19:12 influenza, unspecified formulation 4 completed Valencia Fredo [facility] 10/17/2024 14:19:28 influenza, unspecified formulation 4 completed Valencia Fredo [facility] 10/17/2024 14:19:38 SARS-COV-2 (COVID-19) vaccine, UNSPECIFIED 1 completed Valencia Fredo [facility] 10/17/2024 14:19:51 SARS-COV-2 (COVID-19) vaccine, UNSPECIFIED 1 [facility] 14:20:01 SARS-COV-2 (COVID-19) vaccine, UNSPECIFIED 1 completed Valencia Fredo [facility] 10/17/2024 14:20:09 SARS-COV-2 (COVID-19) vaccine, UNSPECIFIED 2 completed Valencia Yoo [facility] 10/17/2024 14:20:17 zoster, unspecified formulation 3 completed Valencia Yoo [facility] 10/17/2024 14:24:16 zoster, unspecified formulation 1 completed Valenciaroyal Yoo [facility] 10/17/2024 14:24:26 Past Encounters Encounter ID Performer Location Encounter Start Date Encounter Closed Date Diagnosis/Indication Diagnosis SNOMED-CT Code Diagnosis ICD10 Code Diagnosis Note [id number] Estrellita Damico NP [facility] [address] [place] [address] 10/17/2024 09:25:54 10/20/2024 13:52:21 Closed fracture of pubic ramus 8725776114 S32.501D CT pelvis showed right superior pubic ramus and right sacral ala.She is NWB status to right lower extremity with wheelchair transfer'p ain control as belowneeds to fu with ortho in 2 weeks Fracture of radius 38983 007 S52.90XA sp mechanical fall dx with [...] 2 weeks with ortho Hypertensive disorder 38 961498 I10 with hx of htn with elevated bp controlled on losartan 50 mg po qd started in hospitalmo nitor vitals and for need to adjust Osteoporosis 27935228 M8 1.0 hx ofmulivita min qdcal carb bidbiotin qdmonitor Hyperlipidemia 27756715 E78.5 pravastati n 10mg po qdasa qdmonitor Insomnia 566511192 G47.0 0 pt with poor sleep overnight start melatoinin 10 mg po qhsmonitor At high risk for fall 45 98888493 48298401 Z91.89 pt with mechanical fallno assistive devicessup portive carept ot eval and treatmonit or Asthenia 02017457 R53.1 pt pt/ot eval and treatsuppo rtive caremonito r [id number] Giovanni Coffey MD [address] [address] 10/21/2024 14:23:49 10/22/2024 12:07:02 Drug-induced constipation 01778505 K59.03 add sennabowel protocolmo nitor for effect Closed fra cture of pubic ramus 9428200687 S32.501D see HPINWB till cleared by orthodiscu ssed with therapyupd ate with concernsmo nitor for pain controlf/u in place Fracture of radius 06926 007 S52.90XA s/p ORIFfollow ortho recs and update with concernsed divya improvedmo nitor for pain control Hypertensive disorder 38 305740 I10 currently onlosartan 50 mg qdmonitor need to titrate if remains elevated Hyperlipidemia 98272794 E78.5 pravastati n 10 mg po qdcontinue d Insomnia 331476476 G47.0 0 melatonin 10 mg po qhsmonitor for effect Asthenia 76345370 R53.1 therapy to followcoor dinate with ortho [id number] CRISTIANE MAN NP [address] [address] 10/22/2024 10:45:58 10/24/2024 15:39:10 Closed fracture of pubic ramus 0092987009 S32.501D see HPINWB till cleared by orthoPT [...] q mond. x 3 Fracture of radius 43196 007 S52.90XA s/p ORIFNWBSof t cast and sling in place - continueCo ntinue pain meds as aboveMonit or VS, CSM, pain for changesfol low ortho recs and update with concerns Drug-induc ed constipation 96639716 K59.03 Still backed up.Encoura ging use of supp or fleets to get bowels moving ( its right there )D/C senna and colace, change to senna-plus 2 tabs daily, hold for loose stool.Add miralax dailyMaint ain fluidsMoni tor closely and continue to adjust tx. Hypertensive disorder 38 271376 I10 No recent VS - now ordered dailycurre ntly onlosartan 50 mg qdmonitor need to titrate if remains elevated Hyperlipidemia 26374272 E78.5 Continue pravastati n 10 mg po qdSl. elevation in LFTs - is on APAP as wellCMP q mond. x 3 Insomnia 110135343 G47.0 0 On melatonin 10 mg po [...] relaxation and sleep.mikey tor for effect Asthenia 98548192 R53.1 therapy to followcoor dinate with ortho [id number] Estrellita Damico NP [address] [address] 10/24/2024 14:25:11 10/27/2024 15:33:43 Closed fracture of pubic ramus 1123471196 S32.501D see HPINWB to RUE and RLE till cleared by orthoPT OT eval and txcomforta ble at present with pain regimenupd ate Ortho with concerns prnMonitor VS, pain, CSM for change. 10/24 dc ASA to 325 mg bid10/24 started on eliquis 10 mg po bid x 7 days and then 5mg po bid for DVTCBC, CMP q mond. x 3 Fracture of radius 70644 007 S52.90XA s/p ORIFNWB to RUEcontSof t cast and sling in placeConti nue pain meds as aboveMonit or VS, CSM, pain for changesfol low ortho recs and update with concerns prn Hypertensive disorder 38 557571 I10 stablecurr ently onlosartan 50 mg qdmonitor need to titrate if remains elevated Asthenia 34381324 R53.1 therapy to followcoor dinate with ortho Deep venou s thrombosis of lower extremity 751489970 I82.409 10/24 RLE DVTstart eliquis 10 mg po bid x 7days, then 5mgpo bidno s/s of decreased circulatio n to RLEmonitor cms, pain, vitals, bleeding [id number] CRISTIANE MAN NP [facility] [address] 10/30/2024 09:30:35 11/03/2024 11:55:25 Deep venous thrombosis of lower extremity 221399285 I82.409 10/24 RLE DVTstarted eliquis 10 mg po bid x 7days, then 5mg po bidASA stoppedmon itor cms, pain, vitals, bleedingDu e for CBC in am Closed fra cture of pubic ramus 6626457533 S32.501D see HPINWB to RUE and RLE till cleared by orthoPT OT eval and txcomforta ble at present with pain regimenupd ate Ortho with concerns prnMonitor VS, pain, CSM for change.Ort ho follow up Tuesday 10/24 d/c'd ASA due to RLE DVT, now on eliquisCBC , CMP q sund. x 3 Fracture of radius 72261 007 S52.90XA s/p ORIFNWB to RUEcontSof t cast and sling in placeConti nue pain meds as aboveMonit or VS, CSM, pain for changesfol low ortho recs and update with concerns prnOrtho follow up tomorrow. Hypertensive disorder 38 824795 I10 stablecurr ently onlosartan 50 mg qdmonitor need to titrate if remains elevated Asthenia 36348923 R53.1 therapy to followcoor dinate with ortho [id number] Estrellita Damico NP [facility] [address] [address] 11/07/2024 09:32:31 11/17/2024 10:44:35 Deep venous thrombosis of lower extremity 774503330 I82.409 RLE DVTcont eliquis 5mg po bid, completed eliquis 10 mg po bid x 7days started on 10/24ASA stopped, now on eliquismon itor cms, pain, vitals, bleedingmo nitor labs Closed fra cture of pubic ramus 1835080108 S32.501D NWB to RUE and RLE till cleared by orthoPT OT eval and txcomforta ble at present with pain regimenupd ate Ortho with concerns prnMonitor VS, pain, CSM for change.Ort ho follow up Friday 11/10oxycodo ne and tyl sched10/24 d/c'd ASA due to RLE DVT, now on eliquisCBC , CMP q mond. x 3 Fracture of radius 63360 007 S52.90XA s/p ORIFNWB to RUEcontoxy codone and tylenol schedcast in placeConti nue pain meds as aboveMonit or VS, CSM, pain for changesfol low ortho recs and update with concerns prnOrtho follow up on 11/10 for hipnsg to get fu note from 10/31 for further rec Hypertensive disorder 38 015967 I10 stable 116/63curr ently onlosartan 50 mg qdmonitor need to titrate if remains elevated Asthenia 70247430 R53.1 therapy to followcoor dinate with ortho Dysuria 83679496 R30.0 co dysuria with urination and urgency for 1-2 days intermitte ntlyua obtained last nightfu with results [id number] Estrellita Damico NP [facility] [address] [address] 11/10/2024 14:29:31 11/17/2024 11:38:35 Deep venous thrombosis of lower extremity 108325265 I82.409 RLE DVTcont eliquis 5mg po bid, completed eliquis 10 mg po bid x 7days started on 10/24ASA stopped, now on eliquismon itor cms, pain, vitals, bleedingmo nitor labs Closed fra cture of pubic ramus 6974936932 S32.501D NWB to RUE and RLE till cleared by orthoPT OT eval and txcomforta ble at present with pain regimenupd ate Ortho with concerns prnMonitor VS, pain, CSM for change.Ort ho follow up Friday 11/10oxycodo ne and tyl sched3/ d/c'd ASA due to RLE DVT, now on eliquisCBC , CMP q mond. x 3 Fracture of radius 13949 007 S52.90XA s/p ORIFNWB to RUEcontoxy codone and tylenol schedcast in placeConti nue pain meds as aboveMonit or VS, CSM, pain for changesfol low ortho recs and update with concerns prnOrtho follow up on 11/10 for hipnsg to get fu note from 10/31 for further rec Hypertensive disorder 38 293294 I10 stable 116/63curr ently onlosartan 50 mg qdmonitor need to titrate if remains elevated Asthenia 39642856 R53.1 therapy to followcoor dinate with orthoremai ns RLE MADAN NWB for now Acute urin sapphire tract infection 731120280 N39.0 co dysuria with urination and urgency for 1-2 days intermitte ntlypositi ve for uti sensitive to macrobidpr obiotic addedmonit or for resolution /sequelae [id number] CRISTIANE MAN NP [address] [address] 11/13/2024 09:17:07 11/17/2024 13:00:29 Acute urinary tract infection 328358661 N39.0 co dysuria and urgency for 1-2 days intermitte ntly last week, UA C&S obtained and pos. for E. Coli UTI, >100KTreat ing with macrobid, to complete todayMaint ain fluids, monitor Deep venou s thrombosis of lower extremity 472532106 I82.409 RLE DVTcont eliquis 5mg po bidASA stopped while on ACmonitor cms, pain, vitals, bleedingmo nitor labsRepeat 3 month US end of January Closed fra cture of pubic ramus 3982234601 S32.501D NWB to RUE and RLE till [...] ASA, new RLE DVT Fracture of radius 89009 007 S52.90XA s/p ORIFNWB to RUEcontoxy codone and tylenol schedcast in placeConti nue pain meds as aboveMonit or VS, CSM, pain for changesfol low ortho recs and update with concerns prnOrtho follow up as sched.nsg to get fu note from 10/31 for further rec Hypertensive disorder 38 230835 I10 VSScurrent ly onlosartan 50 mg qdmonitor need to titrate if remains elevated Asthenia 24320360 R53.1 therapy to followcoor dinate with ortho 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 and daughter req. to start [...] first dose in case of allergic reaction. [id number] Estrellita Damico NP [address] [address] 11/21/2024 13:38:19 11/24/2024 11:40:42 Acute urinary tract infection 657046789 N39.0 co dysuria and urgency without resolution with macrobidUA C&S obtained and pos. for E. Coli UTI, >100K, culture11/04 8 start cefuroxime 250 mg po bid x 7 days11/21 probiotic 1 tab po bid x 9 days11/21 pyridium 100 mg poq 8 hours prn painpt educated on orange discolorat ionMaintai n fluids, monitor Deep venou s thrombosis of lower extremity 945265400 I82.409 RLE DVTconteli spenser 5mg po bidASA stopped while on ACmonitor cms, pain, vitals, bleedingmo nitor labs, swellingRe peat 3 month US end of January Closed fra cture of pubic ramus 7475216138 S32.501D NWB to RUE and RLE till cleared by orthoPT OT eval and txcomforta ble at present with pain regimenoxy codone 5 mg po bid, monitor for need to adjusttyl 1000 mg po tidupdate Ortho with concerns prnMonitor VS, pain, CSM for change.Ort ho follow up as sched.On eliquis for AC instead of ASA, new RLE DVT Fracture of radius 49238 007 S52.90XA s/p ORIFNWB to RUEcontoxy codone and tylenol schedR wrist in splint, cast off, 10 stitches c/d/i to wrist intactMoni tor VS, CSM, pain for changesfol low ortho recs and update with concerns prnOrtho follow up as sched. Postmenopa usal osteoporosis 164710594 M81.0 prolia given today on 11/21, cont q 6 monthsPOC discussed with pt. and daughterCo ntCalcium 600 mg bidVit D3 2000 Units daily Hypertensive disorder 38 420602 I10 bp stablecont losartan 50 mg qdmonitor need to titrate if remains elevated Asthenia 82655582 R53.1 therapy to followcoor dinate with ortho [id number] [facility] [address] 11/25/2024 12:50:16 11/28/2024 12:25:41 Acute urinary tract infection 402389985 N39.0 >100K E. ColiStarte d cefuroxime 250 mg po bid x 7 days on 11/21 as well as prn pyridiumCl inically feeling better.Brunilda ntain fluids, monitor Deep venou s thrombosis of lower extremity 497062333 I82.409 RLE DVTconteli spenser 5mg po bidASA stopped while on ACmonitor cms, pain, vitals, bleedingmo nitor labs, swellingRe peat 3 month US end of January Closed fra cture of pubic ramus 9085219326 S32.501D NWB to RUE and RLE till [...] ASA, new RLE DVT Fracture of radius 88998 007 S52.90XA s/p ORIFNWB to RUEcont sched. APAP for painready to taper off oxycodone - reduce to 5 mg qd x 5d, then stop.Agata nue wrist splintMoni tor VS, CSM, pain for changesfol low ortho recs and update with concerns prnOrtho follow up as sched. 12/08 Asthenia 39960432 R53.1 therapy to followcoor dinate with ortho Postmenopa usal osteoporosis 839626552 M81.0 prolia given on 11/21, cont q 6 monthsPOC discussed with pt. and daughterCo ntCalcium 600 mg bidVit D3 2000 Units daily Hypertensive disorder 38 803464 I10 bp stablecont losartan 50 mg qdmonitor need to titrate if remains elevated Acute constipation 9006 K59.00 Already on daily miralaxInc rease senna-plus to 2 tabs po bidMaintai n fluids, fiber, activityAd just meds prnShould improved as oxycodone tapered. [id number] CRISTIANE MAN NP [address] [address] 12/02/2024 13:27:01 12/04/2024 03:50:13 Acute urinary tract infection 943290943 N39.0 >100K E. ColiStarte d cefuroxime 250 mg po bid x 7 days on 11/21 as well as prn pyridiumCl inically feeling better, resolved.M aintain fluids, monitor Acute constipation 9006 K59.00 Already on daily miralaxInc reased senna-plus to 2 tabs po bidMaintai n fluids, fiber, activityAd just meds prnShould improved as now off oxycodone. Deep venou s thrombosis of lower extremity [id number] I82.409 RLE DVTconteli spenser 5mg po bidASA stopped while on ACmonitor cms, pain, vitals, bleedingmo nitor labs, swellingRe peat 3 month US (end of January) Closed fra cture of pubic ramus 6817902483 S32.501D NWB to RUE and RLE till cleared by orthoPT OT eval and txcomforta ble at present with pain regimentap ered off Oxycodonec ontinue APAP 1000 mg po tidupdate Ortho with concerns prnMonitor VS, pain, CSM for change.Ort ho follow up as sched.On eliquis for AC instead of ASA, new RLE DVT Fracture of radius 01719 007 S52.90XA s/p ORIFNWB to RUEcont sched. APAP for painTapere d off oxycodoneC ontinue wrist splintMoni tor VS, CSM, pain for changesfol low ortho recs and update with concerns prnOrtho follow up as sched. 12/08 Asthenia [id number] R53.1 therapy to followcoor dinate with ortho Postmenopa usal osteoporosis 031919029 M81.0 prolia given on 11/21, cont q 6 monthsPOC discussed with pt. and daughterCo ntCalcium 600 mg bidVit D3 2000 Units daily Hypertensive disorder 38 897881 I10 bp stablecont losartan 50 mg qdmonitor need to titrate if remains elevated COVID-19 [id number] U07.1 New dx. as of today.Sx. mild, some head and throat congestion , mild headache.M onitor VS, sx.OK to add prn robitussin and prn mucinex DM that family providedCo ntinue supportive care, rest, fluidsMoni tor need for additional support (O2, IVF, updrafts, etc.) [id number] CRISTIANE MAN NP [address] [address] 12/09/2024 15:58:32 12/11/2024 13:09:27 COVID-19 [id number] U07.1 New dx. last week, now improved.S x. mild, some head and throat congestion , mild headache.C ontinue to monitor VS, sx.Added prn robitussin and prn mucinex DM that family providedCo ntinue supportive careIsolat ion as per facility. Acute urin sapphire tract infection 268215440 N39.0 Resolved.> 100K E. ColiStarte d cefuroxime 250 mg po bid x 7 days on 11/21 as well as prn pyridiumMa intain fluids, monitor Acute constipation 75520 9006 K59.00 Already on daily miralaxInc reased senna-plus to 2 tabs po bidMaintai n fluids, fiber, activityAd just meds prnShould improved as now off oxycodone. Deep venou s thrombosis of lower extremity 237925752 I82.409 RLE DVTconteli spenser 5mg po bidASA stopped while on ACmonitor cms, pain, vitals, bleedingmo nitor labs, swellingRe peat 3 month US (end of January) Closed fra cture of pubic ramus 4758470662 S32.501D NWB to RUE and RLE till cleared by orthoPT OT eval and txcomforta ble at present with pain regimentap ered off Oxycodonec ontinue APAP 1000 mg po tidupdate Ortho with concerns prnMonitor VS, pain, CSM for change.Ort ho follow up as sched.On eliquis for AC instead of ASA, new RLE DVT Fracture of radius 26776 007 S52.90XA s/p ORIFNWB to RUEcont sched. 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 and daughterCo ntCalcium 600 mg bidVit D3 2000 Units daily Hypertensive disorder 38 531747 I10 bp stablecont losartan 50 mg qdmonitor need to titrate if remains elevated [id number] [facility] [address] 12/16/2024 16:45:38 12/18/2024 13:38:54 COVID-19 [id number] U07.1 New dx. 12/02, now improved.S x. mild, some head and throat congestion , mild headache.U sed prn robitussin and prn mucinex DM that family providedCo ntinue supportive care Acute urin sapphire tract infection 839501372 N39.0 Resolved.> 100K E. ColiStarte d cefuroxime 250 mg po bid x 7 days on 11/21 as well as prn pyridiumMa intain fluids, monitor Acute constipation 73057 9006 K59.00 Already on daily miralaxInc reased senna-plus to 2 tabs po bidMaintai n fluids, fiber, activityAd just meds prnShould improved as now off oxycodone. Deep venou s thrombosis of lower extremity 576530695 I82.409 RLE DVTconteli spenser 5mg po bidASA stopped while on ACmonitor cms, pain, vitals, bleedingmo nitor labs, swellingRe peat 3 month US (end of January) Closed fra cture of pubic ramus 7251094082 S32.501D NWB until cleared by orthoConti nue PT OT eval and txcontinue APAP 1000 mg po tidupdate Ortho with concernsMo nitor VS, pain, CSM for change.Ort ho follow up as sched.On eliquis for AC instead of ASA, new RLE DVT Fracture of radius 90695 007 S52.90XA s/p ORIFUsing splint lessNWB to RUEcont sched. APAP for painMonito r VS, CSM, pain for changesfol low ortho recs and update with concerns prn Asthenia 43573232 R53.1 therapy to followcoor dinate with ortho Postmenopa usal osteoporosis 661708713 M81.0 prolia given on 11/21, cont q 6 monthsPOC discussed with pt. and daughterCo ntCalcium 600 mg bidVit D3 2000 Units daily Hypertensive disorder 38 527548 I10 bp stablecont losartan 50 mg qdmonitor need to titrate if remains elevated [id number] [facility] [address] 12/18/2024 09:09:37 12/19/2024 16:40:03 COVID-19 [id number] U07.1 New dx. 12/02, sx. now resolved and back to baseline.S x. were mild, responded well to symptomati c treatment. Closed fra cture of pubic ramus 4012476502 S32.501D NWB until cleared by ortho, has follow up 6/2Continu e PT OT eval and txcontinue APAP 1000 mg po tidupdate Ortho with concernsMo nitor VS, pain, CSM for change. On eliquis for AC instead of ASA d/t RLE DVT Fracture of radius 73933 007 S52.90XA s/p ORIFUsing splint lessNWB to RUEcont sched. APAP for painMonito r VS, CSM, pain for changesfol low ortho recs and update with concerns Deep venou s thrombosis of lower extremity 044866100 I82.409 RLE DVT - new dx. 10/24/24Sta rted eliquis 5mg po bid, twyla. well so far.ASA stoppedMon itor cms, pain, vitals, bleedingRe peat 3 month US (end of January) Hypertensive disorder 38 968075 I10 VSScontinu e losartan 50 mg qd Postmenopa usal osteoporosis 899759035 M81.0 prolia given on 11/21, cont q 6 monthsPOC discussed with pt. and daughter Continue:C alcium 600 mg bidVit D3 2000 Units daily Acute constipation 35107 9006 K59.00 Continue miralax qd and senna-plus to 2 tabs po bidMaintai n fluids, fiber, activityAd just meds prn [id number] Estrellita Damico NP [facility] [address] 12/22/2024 09:05:16 12/23/2024 15:22:10 COVID-19 470773971 U07.1 resolvedNe w dx. 12/02, sx. now resolved and back to baseline.S x. were mild, responded well to symptomati c treatment. Closed fra cture of pubic ramus 7630099940 S32.501D NWB until cleared by ortho, has follow up 6/2Continu ePT OT eval and txAPAP 1000 mg po tidupdate Ortho with concernsMo nitor VS, pain, CSM for change.On eliquis for AC instead of ASA d/t RLE DVT Fracture of radius 38602 007 S52.90XA s/p ORIFUsing splint lessNWB to [facility] ed. APAP for painMonito r VS, CSM, pain for changesfol low ortho recs and update with concerns Deep venou s thrombosis of lower extremity 454877815 I82.409 RLE DVT - new dx. 10/24/24con teliquis 5mg po bid, twyla. well so far., ASA stoppedMon itor cms, pain, vitals, bleedingRe peat u/S 3 month US (end of January) Hypertensive disorder 38 149064 I10 stablecont inue losartan 50 mg qd Postmenopa usal osteoporosis 605693880 M81.0 contprolia given on 11/21, cont q 6 monthsCalc ium 600 mg bidVit D3 2000 Units daily Acute constipation 68459 9006 K59.00 better on regimen belowConti nuemiralax qd and senna-plus to 2 tabs po bidMaintai n fluids, fiber, activityAd just meds prn Asthenia 92724959 R53.1 therapy to followcoor dinate with ortho Acute urin sapphire tract infection 265323114 N39.0 Resolved.> 100K E. Colicomple prabhakar cefuroxime 250 mg po bid x 7 days on 11/21 as well as prn pyridiumMa intain fluids, monitor Bilateral lower limb edema 743285214 R60.0 mild/trace monitor for changes with hx of dvt12/22 start compressio n stockings qdmonitor [id number] CRISTIANE MAN NP [facility] [address] [place] [address] 12/25/2024 12:44:40 12/31/2024 17:01:15 COVID-19 152851133 U07.1 Resolved.D x. 12/02Sx. were mild, responded well to symptomati c treatment. Closed fra cture of pubic ramus 4537067166 S32.501D NWB until cleared by ortho, has follow up /2Continu e PT OT eval and txcontinue APAP 1000 mg po tidupdate Ortho with concernsMo nitor VS, pain, CSM for change. On eliquis for AC instead of ASA d/t RLE DVT Fracture of radius 36357 007 S52.90XA s/p ORIFUsing splint lessNWB to RUEcont sched. APAP for painMonito r VS, CSM, pain for changesfol low ortho recs and update with concerns Deep venou s thrombosis of lower extremity 265031675 I82.409 RLE DVT - new dx. 10/24/24Sta rted eliquis 5mg po bid, twyla. well so far.ASA stoppedMon itor cms, pain, vitals, bleedingRe peat 3 month US (end of January) Hypertensive disorder 38 819140 I10 VSScontinu e losartan 50 mg qd Postmenopa usal osteoporosis 280029073 M81.0 prolia given on 11/21, cont q 6 monthsPOC discussed with pt. and daughter Continue:C alcium 600 mg bidVit D3 2000 Units daily Acute constipation 92774 9006 K59.00 Continue miralax qd and senna-plus to 2 tabs po bidMaintai n fluids, fiber, activityAd just meds prn [id number] CRISTIANE MAN NP [address] [address] 01/01/2025 11:19:09 01/06/2025 16:02:57 Closed fracture of pubic ramus 3681898994 S32.501D No change with POCNWB until cleared by ortho, has follow up 6/2Continu e PT OT eval and txcontinue APAP 1000 mg po tidupdate Ortho with concernsMo nitor VS, pain, CSM for change. On eliquis for AC instead of ASA d/t RLE DVT Fracture of radius 99057 007 S52.90XA s/p ORIFhealin g well.cont sched. APAP for painMonito r VS, CSM, pain for changesfol low ortho recs and update with concerns Deep venou s thrombosis of lower extremity 382095649 I82.409 RLE DVT - new dx. 10/24/24Sta rted eliquis 5mg po bid, twyla. well so far.ASA stoppedMon itor cms, pain, vitals, bleedingRe peat 3 month US (end of January) Hypertensive disorder 38 116706 I10 VSScontinu e losartan 50 mg qd Postmenopa usal osteoporosis 561014702 M81.0 prolia given on 11/21, cont q 6 monthsPOC discussed with pt. and daughter Continue:C alcium 600 mg bidVit D3 2000 Units daily Acute constipation 6 K59.00 Continue miralax qd and senna-plus to 2 tabs po bidMaintai n fluids, fiber, activityAd just meds prn [id number] CRISTIANE MAN NP [address] [address] 01/08/2025 09:13:07 01/13/2025 10:35:40 Closed fracture of pubic ramus 0264598871 S32.501D Now WBATContin ue PT OT eval and tx - making progressco ntinue APAP 1000 mg po tidupdate Ortho with concernsMo nitor VS, pain, CSM for change.Nex t appt. 02/16 On eliquis for AC instead of ASA d/t RLE DVT Fracture of radius 04205 007 S52.90XA s/p ORIFhealin g well.cont sched. APAP for painMonito r VS, CSM, pain for changesfol low ortho recs and update with concernsNe xt appt. 02/16 Deep venou s thrombosis of lower extremity 682869789 I82.409 RLE DVT - new dx. 10/24/24Sta rted eliquis 5mg po bid, twyla. well so far.ASA stoppedMon itor cms, pain, vitals, bleedingRe peat 3 month US (end of January) Hypertensive disorder 38 585358 I10 VSScontinu e losartan 50 mg qd Postmenopa usal osteoporosis 270775966 M81.0 prolia given on 11/21, cont q 6 monthsPOC discussed with pt. and daughter Continue:C alcium 600 mg bidVit D3 2000 Units daily Acute constipation 6 K59.00 Continue miralax qd and senna-plus to 2 tabs po bidMaintai n fluids, fiber, activityAd just meds prn [id number] CRISTIANE MAN NP [facility] [address] 01/13/2025 13:50:42 01/14/2025 16:53:38 Closed fracture of pubic ramus 4363331942 S32.501D Now WBATContin ue PT OT eval and tx - continues to make gains.cont inue APAP 1000 mg po tid, declines changing to PRN at this time.updat e Ortho with concernsMo nitor VS, pain, CSM for change.Nex t appt. 02/16 Continue eliquis for AC instead of ASA d/t RLE DVT Fracture of radius 06420 007 S52.90XA s/p ORIFhealin g well.cont sched. APAP for painMonito r VS, CSM, pain for changesfol low ortho recs and update with concernsNe xt appt. 02/16 Deep venou s thrombosis of lower extremity 089403501 I82.409 RLE DVT - new dx. 10/24/24No change with POCContinu e eliquis 5mg po bidASA stoppedMon itor cms, pain, vitals, bleedingRe peat 3 month US (end of January) Hypertensive disorder 38 407886 I10 VSScontinu e losartan 50 mg qd Postmenopa usal osteoporosis 966726973 M81.0 prolia given on 11/21, cont q 6 monthsPOC discussed with pt. and daughter Continue:C alcium 600 mg bidVit D3 2000 Units daily Acute constipation 78597 9006 K59.00 Continue miralax qd and senna-plus to 2 tabs po bidMaintai n fluids, fiber, activityAd just meds prn [id number] CRISTIANE MAN [facility] [address] [place] [address] 01/20/2025 10:10:13 01/28/2025 20:45:59 Closed fracture of pubic ramus 1905232848 S32.501D No Change to POCNow WBATContin ue PT OT eval and tx - continues to make gains.cont inue APAP 1000 mg po tid, declines changing to PRN at this time.updat e Ortho with concernsMo nitor VS, pain, CSM for change.Nex t appt. 02/16 Continue eliquis for AC instead of ASA d/t RLE DVT Fracture of radius 18583 007 S52.90XA s/p ORIFhealin g well.No change to POCcont sched. APAP for painMonito r VS, CSM, pain for changesfol low ortho recs and update with concernsNe xt appt. 02/16 Deep venou s thrombosis of lower extremity 036249939 I82.409 RLE DVT - new dx. 10/24/24Con tinue eliquis 5mg po bid, twyla. well so farASA stoppedMon itor cms, pain, vitals, bleedingRe peat 3 month US (end of January) Hypertensive disorder 38 171939 I10 VSScontinu e losartan 50 mg qd Postmenopa usal osteoporosis 669379626 M81.0 prolia given on 11/21, cont q 6 monthsPOC discussed with pt. and daughter Continue:C alcium 600 mg bidVit D3 2000 Units daily Acute constipation 27869 9006 K59.00 Continue senna-plus to 2 tabs po bidChange miralax to daily prnMaintai n fluids, fiber, activityAd just meds prn [id number] Estrellita Damico NP [facility] [address] [address] 01/23/2025 07:51:17 01/29/2025 09:14:16 Closed fracture of pubic ramus 2838727746 S32.501D resolvingW Germain uses walkerther apy outpt prncontinu eAPAP 1000 mg po tid, wean as ableupdate Ortho with concernsNe xt appt. 02/16 with orthoConti nue eliquis for AC instead of ASA d/t RLE DVTfu with pcp outpt Fracture of radius 92153 007 S52.90XA s/p ORIF and healing well.cont sched. APAP for painfollow ortho recs and update with concernsNe xt appt. 02/16fu with pcp outpt Deep venou s thrombosis of lower extremity 472696598 I82.409 RLE DVT - new dx. 10/24/24Con tinueeliqu is 2.5mg po bid, twyla. well so far, ASA stoppedRep eat 3 month US (beginning of february)consi aspen stopping eliquis if DVT is resolved after U/Sfu with pcp Hypertensive disorder 38 698780 I10 vitals stable and bp controlled herecontin ue losartan 50 mg qdfu with pcp outpt Postmenopa usal osteoporosis 990881904 M81.0 prolia given on 11/21, cont q 6 months, next due 05/23POC discussed with pt. and daughterCo ntinue:[place]aldemar cium 600 mg bidVit D3 2000 Units dailyfu with pcp outpt for prolia Acute constipation 00332 9006 K59.00 Continuese nna-plus to 2 tabs po bidmiralax to daily prnAdjust meds prn with pcp outpt COVID-19 886296031 U07.1 Resolved.D x. 12/02Sx. were mild, responded well to symptomati c treatment. fu with pcp outpt Acute urin sapphire tract infection 814788071 N39.0 Resolved.> 100K E. Colicomple prabhakar cefuroxime 250 mg po bid x 7 days on 11/21 as well as prn pyridium now dc'dfu with pcp outpt for sequelae Asthenia 82548339 R53.1 therapy to followcoor dinate with ortho Hyperlipidemia 79539876 E78.5 pravastati n 10mg po qdasa qdmonitor Health Concerns Section Related Observation LastModified by Organization Detai ls LastModified Time None Recorded Concern Status LastModified by Organization Details LastModified Time None Recorded Advance Directives Directive Y: Payers Insurance Date Sequence Insurance Name Policy Number Policy Celestin Covered Member ID Celestin Member ID Guarantor Name 02/12/2025 3 [place] [facility] Dayna Goldberg [id number] Dayna Goldberg 01/27/2025 2 [id number] [id number] Dayna Goldberg [id number] Dayna Goldberg 01/27/2025 1 [place] B[place] [employer] Dayna Goldberg [id number] Dayna Goldberg 11/17/2024 1 [place]MED[place]PLACEMENT PPO) [id number] Dayna Goldberg [id number] Dayna Goldberg Notes Date Note Type Note Provider Name and Address Organization Details Recorded Time 01/01/2025 text/html Lianna is seen totoby pineda for an acute visit. She is an 79 yo lady, admitted to [facility] for rehab after mechanical fall. Imaging positive for right distal radius/ulna fx. and right pubic ramus and sacral fx. Underwent ORIF RUE. Since admission, Dayna has been making progress with rehab. Remains on APAP tid for pain mgmt., currently comfortable. Has Ortho follow up 6/, hopeful for full weight bearing as otherwise doing well. No issues with R wrist/forearm.APAP controlling pain. Stay here complicated by:RLE DVT dx'd 10/24 - now on eliquis for AC, twyla. well, no issues.Constipation - laxatives added and increased with improvement in bowels.E. Coli UTI - completed cefuroxime, sx. resolved.OP - started on prolia for bone health, first dose 11/21, twyla. well.COVID - tested positive 12/02, sx. mild and treated symptomatically with improvement in status. Upon exam today, Lianna is OOB, alert, NAD. In good spirits, no complaints, excited to get moving more after Ortho appt. next week.No concerns per nsg. VSSLabs 11/28 stable. PMH: HTN, HLD, Gait instability CRISTIANE MAN NP [address] [facility], [address], [place], [address], [facility] [employer] 01/01/2025 11:45:53 01/08/2025 text/html [facility] She is an 79 yo lady, admitted to [facility] for rehab after mechanical fall. Imaging positive for right distal radius/ulna fx. and right pubic ramus and sacral fx. Underwent ORIF RUE. Since admission, Dayna has been making progress with rehab. Remains on APAP tid for pain mgmt., currently very comfortable. Had Ortho follow up 01/05, now WBAT BLEs and allowed for increased use of right wrist/forearm.She continues to work with rehab and is making very good progress.No new recent issues or concerns other than wt. loss currently 122 lbs.VSS. Stay here complicated by:RLE DVT dx'd 10/24 - now on eliquis for AC, twyla. well, no issues.Constipation - laxatives added and increased with improvement in bowels.E. Coli UTI - completed cefuroxime, sx. resolved.OP - started on prolia for bone health, first dose 11/21, twyla. well.COVID - tested positive 12/02, sx. mild and treated symptomatically with improvement in status. Upon exam today, Lianna is OOB, alert, NAD. In good spirits, no complaints. Weight loss discussed, and she said she is eating well and taking all of her supplements. PMH: HTN, HLD, Gait instability CRISTIANE MAN NP [address] [facility], [address], [place], [address], [facility] [employer] 01/08/2025 11:57:54 01/13/2025 text/html [facility] She is an 79 yo lady, admitted to [facility] for rehab after mechanical fall. Imaging positive for right distal radius/ulna fx. and right pubic ramus and sacral fx. Underwent ORIF RUE. Since admission, Dayna has been making progress with rehab. Remains on APAP tid for pain mgmt., currently very comfortable but declines to change APAP to PRN as wrist still stiff and uncomfortable, especially in the am.Had Ortho follow up 01/05, now WBAT BLEs and allowed for increased use of right wrist/forearm. Now walking with a walker.She continues to work with rehab, continues to make gains.No new recent issues or concerns other than wt. loss currently 122 lbs.VSS. Stay here complicated by:RLE DVT dx'd 10/24 - now on eliquis for AC, twyla. well, no issues.Constipation - laxatives added and increased with improvement in bowels.E. Coli UTI - completed cefuroxime, sx. resolved.OP - started on prolia for bone health, first dose 11/21, twyla. well.COVID - tested positive 12/02, sx. mild and treated symptomatically with improvement in status. Upon exam today, Lianna is OOB in her w/c, alert, NAD. Happy with her progress with rehab, denies any complaints other than wrist stiffness/discomfort in am. PMH: HTN, HLD, Gait instability CRISTIANE MAN NP [address] [facility], [address], [place], [address], [facility] [employer] 01/13/2025 13:55:18 01/20/2025 text/html Lianna is seen zac pineda for an acute visit. She is an 79 yo lady, admitted to [facility] for rehab after mechanical fall. Imaging positive for right distal radius/ulna fx. and right pubic ramus and sacral fx. Underwent ORIF RUE. Since admission, Dayna continues to progress with rehab. Remains on APAP tid for pain mgmt., remains comfortable.Had Ortho follow up 01/05, now WBAT BLEs and allowed for increased use of right wrist/forearm. Now walking with a walker.VSS No new recent issues or concerns other than wt. loss currently 122 lbs.Magic cup added for diet supplement today.Stay here complicated by:RLE DVT dx'd 10/24 - now on eliquis for AC, twyla. well, no issues.Constipation - laxatives added and increased with improvement in bowels.E. Coli UTI - completed cefuroxime, sx. resolved.OP - started on prolia for bone health, first dose 11/21, twyla. well.COVID - tested positive 12/02, sx. mild and treated symptomatically with improvement in status. Upon exam today, Lianna is OOB in her w/c, alert, NAD. No complaints, in good spirits, requesting her miralax be changed to prn as she is moving her bowels quite well. PMH: HTN, HLD, Gait instability CRISTIANE MAN NP [address] [place] [address], [address], [place], [address], [facility] - [facility] 01/20/2025 12:39:38 01/23/2025 text/html Lianna is seen zac pineda for a discharge summary visit. She is an 79 yo lady, admitted to [facility] for rehab after mechanical fall. Imaging positive for right distal radius/ulna fx. and right pubic ramus and sacral fx. Underwent ORIF RUE. While here at [facility]:Dayna continues to progress with rehab here. Remains on APAP tid for pain mgmt., remains comfortable. She had an Ortho follow up 01/05, now WBAT BLEs and allowed for increased use of right wrist/forearm. Now walking with a walker.vitals remain stable. Recent wt. loss currently 122 lbs noted and magic cup added for diet supplement today. She was noted to have a RLE DVT dx'd 10/24 - now on eliquis for AC, twyla. well, no issues. May consider coming off eliquis in 3 months in beginning of February may want to repeat u/s. Constipation - laxatives added and increased with improvement in bowels. E. Coli UTI - completed cefuroxime, sx. resolved. She started on prolia for bone health, first dose 11/21, twyla. well. She was receiving fosamax prior per family. Next dose due on 05/23. COVID - tested positive 12/02, sx. mild and treated symptomatically with improvement in status. On exam today, Lianna is OOB in her w/c, alert, NAD. No complaints. 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 Per SS work note: SS met this afternoon with Dayna's daughter, Aviva to further discuss her mother's discharge plan as she had a few questions regarding her d/c plan.Dayna is scheduled to be discharged home on Sunday, January 24, 2025 and Aviva will provide the transport home. Home Care services were discussed. I indicated to her that I had already made a referral to [facility] for support services, more specifically senior care, OT, PT and a MEASUREMENT SUPERINTENDENT, with a request to start on Sunday, January 25, 2025. Information has been faxed already for review. SS to contact [facility] for additional support services of Meals on Wheels, Life line, homemaking and personal care. According to [employer], she has contacted the [employer] and obtained a shower seat and grab bars from [employer]. [employer] is requesting scripts for briefs. PMH: HTN, HLD, Gait instability Estrellita Damico, [employer] [address] [facility], [address], [place], [address], [facility] - [employer] 01/23/2025 10:35:32 OBGyn Episode No OBEpisode recorded.
== END 2025-02-19 13:26 | disposition home or self-care (01) ==
LOC: HO.HOS 13:02
DX: S32.10XA Unspecified fracture of sacrum, initial encounter for closed fracture (principal); S32.591A Other specified fracture of right pubis, initial encounter for closed fracture
CPT/HCPCS: 99213

== ENCOUNTER 2025-02-19 13:02 | Outpatient (REF) | payer MEDICARE, SELFPAY ==
--- NOTE | ~2025-02-19 | XR_ITS ---
EXAMINATION: XR PELVIS 1-2 VIEWS HISTORY: M25.559 - Pain in unspecified hip COMPARISON: Comparison is made with the prior examination dated 01/05/2025. FINDINGS: A single AP view of the pelvis is submitted. The bones are osteopenic. Again seen is a healing fracture of the right superior pubis adjacent to the acetabulum as well as the right pubic symphysis. There is slightly greater callus formation noted. No new fracture or dislocation is seen. There is mild narrowing of the hip joints. XR/XR pelvis 1-2V IMPRESSION: Healing fractures of the right superior pubic ramus and pubic symphysis. Electronically signed by: Iain Yen MD 02/19/2025 01:53 PM EDT
== END 2025-02-19 13:03 | disposition home or self-care (01) ==
LOC: HO.HOSX 13:02
DX: S34 Injury of lumbar and sacral spinal cord and nerves at abdomen, lower back and pelvis level (principal); S32.10XD Unspecified fracture of sacrum, subsequent encounter for fracture with routine healing; S32.591D Other specified fracture of right pubis, subsequent encounter for fracture with routine healing; M25.559 Pain in unspecified hip; X58.XXXD Exposure to other specified factors, subsequent encounter; Y92.89 Other specified places as the place of occurrence of the external cause; Y93.89 Activity, other specified; Y99.8 Other external cause status
CPT/HCPCS: 72170; 99212

== ENCOUNTER → 2025-02-19 13:07 | Outpatient (BNV) | payer MEDICARE, SELFPAY | PROVIDERS: Visit Provider Radiology Diagnostic Radiology | DX: M25.559 Pain in unspecified hip (principal) | CPT/HCPCS: 72170 ==

== ENCOUNTER 2025-04-17 08:20 | Outpatient (REF) | payer MEDICARE, SELFPAY ==
--- OUTSIDE RECORDS SUMMARY | 2025-04-15 08:30 | XMS_ITS | Encounter Summary ---
Author Organization [facility] Address [address] [place] [address] Care Team Providers Care Telephonic Case Manager Name Role Phone Carlita Villegas MD Primary Care Provider [phone] Reason for Visit * Reason Comments Follow-up Encounter Details Date Type Department Care Team (Late st Contact Info) Description 04/15/2025 8:30 AM EDT Office Visit Adult Medicine [address] [phone] Carlita Villegas MD [address] [place] [phone] Primary hypertension (Primary Dx); Actinic keratosis; Mixed hyperlipidemia; Ascending aorta dilatation (CMS/HCC V24) Social History Tobacco Use Types Packs/Day Years [...] on file documented as of this encounter Last Filed Vital Signs Vital Sign Reading Time Taken Comments Blood Pressure 136/80 04/15/2025 8:59 AM EDT Pulse 84 04/15/2025 8:33 AM EDT Temperature 36.4 C (97.5 F) 04/15/2025 8:33 AM EDT Respiratory Rate 14 04/15/2025 8:33 AM EDT Oxygen Saturation 98% 04/15/2025 8:33 AM EDT Inhaled Oxygen Concentration - - Weight 53.5 kg (118 lb) 04/15/2025 8:33 AM EDT Height 157.5 cm (5' 2 ) 04/15/2025 8:33 AM EDT Body Mass Index 21.58 04/15/2025 8:33 AM EDT documented in this encounter Ordered Prescriptions Prescription Sig Dispense Quantity Refills Last Filled Start Date End Date pravastatin (PRAVACHOL) 10 mg tablet Take 1 tablet (10 mg total) by mouth 1 (one) time each day. 90 tablet 1 04/15/2025 documented in this encounter Progress Notes * Carlita Villegas MD - 04/15/2025 8:30 AM EDT Images from the original note were not included. CHIEF COMPLAINT: Follow-up IDENTIFIER: Dayna Goldberg is a 79 y.o. old female. HPI: Patient is a 79-year-old female with osteoporosis, hypertension, hyperlipidemia, history of right DVT (after pubic fracture) completed anticoagulation, IgM kappa monoclonal gammopathy who is here fora follow-up visit. Hypertension- she has been compliant with losartan 50 mg daily. She reports that BP was being monitored by [facility] at home and reports that numbers were well controlled. Initial blood pressure elevated 145/72 and improved on recheck to 136/80. Hyperlipidemia-compliant with pravastatin 10 mg daily. IgM kappa monoclonal gammopathy-following with hematology oncology Actinic keratosis/seborrheic keratosis- following [facility], appointment in May- June. ROS: Review of systems: Pertinent items are noted in HPI PAST MEDICAL HISTORY: Patient Active Problem List Diagnosis Date Noted Actinic keratosis Fracture of radius 10/17/2024 Unspecified fracture of right pubis, subsequent encounter for fracture with routine healing 10/17/2024 Hypertension 11/02/2022 Bilateral carotid artery stenosis 10/17/2022 Brain mass 08/11/2022 Ascending aorta dilatation (CMS/HCC V24) 01/13/2022 Subclinical hypothyroidism 11/10/2021 Hyperlipidemia 03/13/2015 Allergic rhinitis 07/10/2014 Tubular adenoma 03/20/2012 History of varicose veins 02/14/2012 Osteoporosis 12/30/2010 Headache 03/05/2007 SOCIAL HISTORY: Social History Tobacco Use Smoking status: Former Current packs/day: 0.00 Types: Cigarettes Quit date: 08/06/1964 Years since quittin.7 Smokeless tobacco: Never Substance Use Topics Alcohol use: No FAMILY HISTORY: Family Status Relation Name Status Mother Father Sister x 2 Alive Brother x 3 Brother x 1 Alive MGM 50's Aunt mat 50's Alive No partnership data on file Family History Problem Relation Name Age of Onset Other (Other: ) Mother bowel perforation age 83; migraines Other (Other: liver problems) Father Other (Other: TIA) Sister x 2 x2, age 76; carotid stenting, migraines Diabetes Brother x 3 prostate cancer Brain Aneurysm Brother x 1 Breast cancer Maternal Grandmother 50's Breast cancer Aunt mat 50's ACTIVE MEDICATIONS: Outpatient Medications Marked as Taking for the 04/15/25 encounter (Office Visit) with Carlita Villegas MD Medication Sig Dispense Refill acetaminophen (TYLENOL) 325 mg tablet Take 2 Tablets by mouth every 6 hours as needed. calcium carbonate (CALCIUM ORAL) Take by mouth. denosumab (PROLIA) 60 mg/mL syringe syringe Inject 1 mL (60 mg total) under the skin 1 (one) time for 1 dose. 1 mL 0 losartan (COZAAR) 50 mg tablet Take 1 tablet (50 mg total) by mouth 1 (one) time each day. 90 tablet 0 MULTIVITAMIN ORAL None Entered pravastatin (PRAVACHOL) 10 mg tablet Take 1 tablet (10 mg total) by mouth 1 (one) time each day. 90tablet 1 [DISCONTINUED] pravastatin (PRAVACHOL) 10 mg tablet Take 1 tablet (10 mg total) by mouth 1 (one) time each day. 90 tablet 1 ALLERGIES: Azithromycin, Ciprofloxacin hcl, Doxycycline, and Sulfa (sulfonamide antibiotics) PHYSICAL EXAM: Blood pressure 136/80, pulse 84, temperature 36.4 ??C (97.5 ??F), temperature source Temporal, resp. rate 14, height 1.575 m (62 ), weight 53.5 kg (118 lb), SpO2 98%. Body mass index is 21.58 kg/m??.BMI is 18.5 to 24.9 (within the normal range) and will be followed APPEARANCE: Alert and in no acute distress EYES: PERRLA, conjunctiva and sclera normal HEART: RRR with normal S1 and S2, no murmurs, no gallops, no JVD appreciated LUNG: clear to auscultation bilaterally EXTREMITIES: Extremities warm and well perfused without clubbing, cyanosis, or edema NEURO: Awake, alert and oriented x 3 and Normal gait LABS: IMPRESSION: 1. Actinic keratosis 2. Mixed hyperlipidemia 3. Primary hypertension 4. Ascending aorta dilatation (CMS/HCC V24) ASSESSMENT/PLAN: Dayna was seen today for follow-up. Diagnoses and all orders for this visit: Actinic keratosis (Primary) Mixed hyperlipidemia Primary hypertension Ascending aorta dilatation (CMS/HCC V24) Other orders - pravastatin (PRAVACHOL) 10 mg tablet; Take 1 tablet (10 mg total) by mouth 1 (one) time each day. Plan Continue with losartan 50 mg daily. Continue with pravastatin 10 mg daily. Patient following with endocrinology for osteoporosis.Mild ascending aorta dilatation 4.2 cm, stable since January 2022. Patient has upcoming appointment with dermatology for follow-up on actinic keratosis. Follow up in about 3 months (around 07/15/2025) for Medication review. No orders of the defined types were placed in this encounter. Recent Results (from the past 4 weeks) Comprehensive metabolic panel Collection Time: 04/02/25 1:30 PM Result Value Ref Range Sodium 137 133 - 145 mmol/L Potassium 4.3 3.5 - 5.5 mmol/L Chloride 104 96 - 110 mmol/L CO2 29 21 - 32 mmol/L Anion Gap 4 3 - 11 Glucose 80 70 - 100 mg/dL BUN 21 5 - 25 mg/dL Creatinine 0.87 0.50 - 1.10 mg/dL eGFR 67 >=60 mL/min/1.73m2 BUN/Creatinine Ratio 24.1 Calcium 9.4 8.5 - 10.5 mg/dL AST (SGOT) 14 10 - 42 unit/L ALT (SGPT) 21 10 - 60 unit/L Alkaline Phosphatase 53 42 - 121 unit/L Total Protein 7.3 6.0 - 8.0 g/dL Albumin 4.0 3.2 - 5.0 g/dL Total Bilirubin 0.3 0.0 - 1.4 mg/dL [place]-lambda free light chains, quantitative Collection Time: 04/02/25 1:30 PM Result Value Ref Range [place] Free Light Chain 2.00 (H) 0.33 - 1.94 mg/dL Lambda Free Light Chain 1.56 0.57 - 2.63 mg/dL [place]/Lambda FLC Ratio 1.28 0.26 - 1.65 Viscosity, serum Collection Time: 04/02/25 1:30 PM Result Value Ref Range Viscosity Serum 1.7 1.5 - 1.9 Lactate dehydrogenase Collection Time: 04/02/25 1:30 PM Result Value Ref Range LDH 169 120 - 246 unit/L CBC auto differential Collection Time: 04/02/25 1:30 PM Result Value Ref Range WBC 4.9 4.8 - 10.8 K/mcL RBC 3.90 3.80 - 4.80 M/mcL Hemoglobin 12.2 11.5 - 16.0 g/dL Hematocrit 38.0 35.0 - 47.0 % MCV 97.9 79.0 - 98.0 FL MCH 31.4 27.0 - 32.0 pcg MCHC 32.1 32.0 - 37.0 g/dL RDW 12.6 11.0 - 15.0 % Platelets 204 130 - 400 K/mcL MPV 10.8 7.0 - 11.0 FL NRBC 0.0 <1.0 % NRBC Absolute 0.00 <0.10 K/mcL Neutrophils Relative 64.5 % Lymphocytes Relative 26.0 % Monocytes Relative 7.1 % Eosinophils Relative 1.6 % Basophils Relative 0.4 % Immature Granulocytes Relative 0.4 % Neutrophils Absolute 3.17 1.50 - 7.00 K/mcL Lymphocytes Absolute 1.28 1.00 - 5.00 K/mcL Monocytes Absolute 0.35 0.20 - 1.00 K/mcL Eosinophils Absolute 0.08 0.00 - 0.50 K/mcL Basophils Absolute 0.02 0.00 - 0.20 K/mcL Immature Granulocytes Absolute 0.02 0.00 - 0.03 K/mcL Carlita Villegas MD on 04/15/2025 at 9:06 AM EDT documented in this encounter Plan of Treatment Upcoming Encounters Date Type Department Care Team (Late st Contact Info) Description 04/23/2025 3:30 PM EDT Office Visit [facility] Hematology Oncology [address] [place] [phone] Demetrius Parkinson MD [address] [place] [address] 05/27/2025 9:30 AM EDT Appointment [facility] Bone Density [address] [place] [phone] 06/17/2025 10:00 AM EST Office Visit Endocrinology [address] [phone] Gisell Villegas PA [address] [place], [place] 07/31/2025 1:15 PM EST Office Visit Adult Medicine [place] - [address] [phone] Carlita Villegas MD [address] [place], [place] 08/26/2025 10:00 AM EST Office Visit Vascular Surgery - [place] [address] [place] [address] Priya Lopez MD [address] [place] [phone] documented as of this encounter Visit Diagnoses Diagnosis Primary hypertension- Primary Unspecified essential hypertension Actinic keratosis Mixed hyperlipidemia Ascending aorta dilatation (CMS/HCC V24) Thoracic aneurysm without mention of rupture documented in this encounter Discontinued Medications Medication Sig Discontinue Reason Start Date End Da te DOCUSATE SODIUM ORAL Take by mouth as needed. Therapy completed 04/15/2025 pravastatin (PRAVACHOL) 10 mg tablet Take 1 tablet (10 mg total) by mouth 1 (one) time each day. Reorder 08/07/2024 04/15/2025 DOCUSATE SODIUM ORAL Take by mouth as needed. Therapy completed 04/15/2025 cetirizine HCl (CETIRIZINE ORAL) Take by mouth. Therapy completed 04/15/2025 documented as of this encounter Historical Medications * This list may reflect changes made after this encounter. senna (SENOKOT) 8.6 mg tablet Take 2 tablets (17.2 mg total) by mouth 2 (two) times a day. added in this encounter Care Teams Telephonic Case Manager Relationship Specialty Start Date End Date Carlita Villegas MD [address] [place] [phone] PCP - General 08/25/22 documented as of this encounter
--- NOTE | ~2025-04-17 | XR_ITS ---
EXAMINATION: XR PELVIS CLINICAL INFORMATION: M25.559 - Pain in unspecified hip COMPARISON: January 1725 TECHNIQUE: AP view of the pelvis. FINDINGS: Fracture of the right iliopubic junction demonstrates increased sclerosis and remodeling consistent with continued healing. There is also remodeling of a fracture of the right greater than left pubic bone. Otherwise, stable x-ray. XR/XR pelvis 1-2V IMPRESSION: Normal pelvis. Electronically signed by: Sky Strickland MD 04/17/2025 01:01 PM EDT Workstation:
--- OUTSIDE RECORDS SUMMARY | 2025-04-17 08:41 | XMS_ITS ---
Author Name [facility] Organization Unknown Care Team Organization Name Specialty Phone Email Start Date End Da te [facility] Carlita Villegas Primary Care 02/08/[address] [facility] MAKSIM CHAPMAN Primary Care 06/13/2022 4
--- OUTSIDE RECORDS SUMMARY | 2025-04-17 08:41 | XMS_ITS | Encounter Summary ---
Author Organization [facility] Address [address] [place] [phone] Care Team Providers Care Production Intern Name Role Phone Carlita Villegas MD Primary Care Provider [phone] Encounter Details Date Type Department Care Team (Late Contact Info) Description 10/23/2024 Lab Requisition [facility] - Main Lab [address] [facility] [place] [address] Giovanni Coffey MD [address] [place] [phone] Essential (primary) hypertension; Hyperlipidemia, unspecified; Unspecified [...] Description 04/23/2025 3:30 PM EDT Office Visit [facility] Hematology Oncology [address] [place] [address] Demetrius Parkinson MD [address] [place] [address] 05/27/2025 9:[address] [facility] Bone Density [address] [place] [phone] 06/17/2025 10:00 AM EST Office Visit Endocrinology [address] [phone] Gisell Villegas PA [address] [place] [address] 07/31/2025 1:15 PM EST Office Visit Adult Medicine [place] - [address] [phone] Carlita Villegas MD [address] [place] [address] 08/26/2025 10:00 AM EST Office Visit Vascular Surgery - [place] [address] [place] [phone] Priya Lopez MD [address] [place] [address] documented as of this encounter Procedures Procedure Name Priority Date/Time Associated Diagnosis Comments COMPLETE BLOOD COUNT Routine 10/24/2024 5:10 AM EDT Essential (primary) hypertension Hyperlipidemia, unspecified Unspecified osteoarthritis, unspecified site Encounter for other orthopedic aftercare C-REACTIVE PROTEIN Routine 10/24/2024 5 :10 AM EDT Essential (primary) hypertension Hyperlipidemia, unspecified Unspecified osteoarthritis, unspecified site Encounter for other orthopedic aftercare COMPREHENSIVE METABOLIC PANEL Routine 10/24/2024 5:10 AM EDT Essential (primary) hypertension Hyperlipidemia, unspecified Unspecified osteoarthritis, unspecified site Encounter for other orthopedic aftercare documented in this encounter Results * (ABNORMAL) Comprehensive metabolic panel (10/24/2024 5:10 AM EDT) [facility] Sodium 139 133 - 145 mmol/L LAB CHEMISTRY METHOD 10/24/2024 11:18 AM [facility] Potassium 4.6 3.5 - 5.5 mmol/L LAB CHEMISTRY METHOD 10/24/2024 11:18 AM [facility] Chloride 106 96 - 110 mmol/L LAB CHEMISTRY METHOD 10/24/2024 11:18 AM [facility] CO2 28 21 - 32 mmol/L LAB CHEMISTRY METHOD 10/24/2024 11:18 AM [facility] Anion Gap 5 3 - 11 LAB CHEMISTRY METHOD 10/24/2024 11:18 AM [facility] Glucose 84 70 - 100 mg/dL LAB CHEMISTRY METHOD 10/24/2024 11:18 AM [facility] BUN 19 5 - 25 mg/dL LAB CHEMISTRY METHOD 10/24/2024 11:18 AM [facility] Creatinine 0.72 0.50 - 1.10 mg/dL LAB CHEMISTRY METHOD 10/24/2024 11:18 AM [facility] eGFR 85 >=60 mL/min/1. 73m2 LAB CHEMISTRY METHOD 10/24/2024 11:18 AM [facility] Comment:Calculation based on the Chronic Kidney Disease Epidemiology Collaboration (CKD-EPI) equation refit without adjustment for race. BUN/Creatinine Ratio 26.4 LAB CHEMISTRY METHOD 10/24/2024 11:18 AM [facility] Calcium 8.6 8.5 - 10.5 mg/dL LAB CHEMISTRY METHOD 10/24/2024 11:18 AM [facility] AST (SGOT) 62(H) 10 - 42 unit/L LAB CHEMISTRY METHOD 10/24/2024 11:18 AM [facility] ALT (SGPT) 91(H) 10 - 60 unit/L LAB CHEMISTRY METHOD 10/24/2024 11:18 AM [facility] Alkaline Phosphatase 156(H) 42 - 121 unit/L LAB CHEMISTRY METHOD 10/24/2024 11:18 AM EDT [facility] Total Protein 6.4 6.0 - 8.0 g/dL LAB CHEMISTRY METHOD 10/24/2024 11:18 AM EDT [facility] Albumin 2.9(L) 3.2 - 5.0 g/dL LAB CHEMISTRY METHOD 10/24/2024 11:18 AM EDT [facility] Total Bilirubin 0.5 0.0 - 1.4 mg/dL LAB CHEMISTRY METHOD 10/24/2024 11:18 AM EDT [facility] Blood Venous blood specimen / Unknown Venipuncture / Unknown 10/24/2024 5:10 AM EDT 10/24/2024 9:54 AM EDT us Giovanni Coffey MD LAB BLOOD ORDERABLES Final Resul t [facility] [address] [place] [address], * (ABNORMAL) Complete blood count (10/24/2024 5:10 AM EDT) WBC 5.1 4.8 - 10.8 K/mcL LAB HEMETOLOGY METHOD 10/24/2024 10:04 AM [facility] RBC 3.50(L) 3.80 - 4.80 M/mcL LAB HEMETOLOGY METHOD 10/24/2024 10:04 AM T [facility] Hemoglobin 10.9(L) 11.5 - 16.0 g/dL LAB HEMETOLOGY METHOD 10/24/2024 10:04 AM [facility] Hematocrit 34.2(L) 35.0 - 47.0 % LAB HEMETOLOGY METHOD 10/24/2024 10:04 AM [facility] MCV 98.6(H) 79.0 - 98.0 FL LAB HEMETOLOGY METHOD 10/24/2024 10:04 AM EDT [facility] MCH 31.4 27.0 - 32.0 pcg LAB HEMETOLOGY METHOD 10/24/2024 10:04 AM EDT [facility] MCHC 31.9(L) 32.0 - 37.0 g/dL LAB HEMETOLOGY METHOD 10/24/2024 10:04 AM EDT [facility] RDW 13.4 11.0 - 15.0 % LAB HEMETOLOGY METHOD 10/24/2024 10:04 AM EDT [facility] Platelets 253 130 - 400 K/mcL LAB HEMETOLOGY METHOD 10/24/2024 10:04 AM EDT [facility] MPV 10.7 7.0 - 11.0 FL LAB HEMETOLOGY METHOD 10/24/2024 10:04 AM EDT [facility] NRBC 0.0 <1.0 % LAB HEMETOLOGY METHOD 10/24/2024 10:04 AM EDT [facility] NRBC Absolute 0.00 <0.10 K/mcL LAB HEMETOLOGY METHOD 10/24/2024 10:04 AM EDT [facility] Blood Venous blood specimen / Unknown Venipuncture / Unknown 10/24/2024 5:10 AM EDT 10/24/2024 9:54 AM EDT us Giovanni Coffey MD LAB BLOOD ORDERABLES Final Resul t [facility] [address] [place] [address], * (ABNORMAL) C-reactive protein (10/24/2024 5:10 AM EDT) C-Reactive Protein 1.44(H) <=0.50 mg/dL LAB CHEMISTRY METHOD 10/24/2024 11:18 AM EDT [facility] Blood Venous blood specimen / Unknown Venipuncture / Unknown 10/24/2024 5:10 AM EDT 10/24/2024 9:54 AM EDT us Giovanni Coffey MD LAB BLOOD ORDERABLES Final Resul t [facility] [address] [place] [address], documented in this encounter Visit Diagnoses Diagnosis Essential (primary) hypertension Unspecified essential hypertension Hyperlipidemia, unspecified Unspecified osteoarthritis, unspecified site Encounter for other orthopedic aftercare documented in this encounter Care Teams Production Intern Relationship Specialty Start Date End Date Carlita Villegas MD [address] [place] [phone] PCP - General 08/25/22 documented as of this encounter
--- OUTSIDE RECORDS SUMMARY | 2025-04-17 08:41 | XMS_ITS | Encounter Summary ---
Author Organization [facility] Address [address] [place] [address] Care Team Providers Care Electrical Accessories I Assembler Name Role Phone Carlita Villegas MD Primary Care Provider [phone] Encounter Details Date Type Department Care Team (Late Contact Info) Description 12/05/2024 Lab Requisition [facility] - Main Lab [address] [facility] [place] [address] Social History Tobacco Use Types [...] Department Care Team (Late Contact Info) Description 04/23/2025 3:30 PM EDT Office Visit [facility] Hematology Oncology [address] [place] [phone] Demetrius Parkinson MD [address] [place] [address] 05/27/2025 9:30 AM EDT Appointment [facility] Bone Density [address] [place] [phone] 06/17/2025 10:00 AM EST Office Visit Endocrinology - [place] [address] [place] [phone] Gisell Villegas PA [address] [place] [phone] 07/31/2025 1:15 PM EST Office Visit Adult Medicine [address] [phone] Carlita Villegas MD [address] [place] [address] 08/26/2025 10:00 AM EST Office Visit Vascular Surgery - [place] [address] [place] [phone] Priya Lopez MD [address] [place] [phone] documented as of this encounter Visit Diagnoses Not on filedocumented in this encounter Care Teams Electrical Accessories I Assembler Relationship Specialty Start Date End Date Carlita Villegas MD [address] [place] [address] PCP - General 08/25/22 documented as of this encounter
--- OUTSIDE RECORDS SUMMARY | 2025-04-17 08:41 | XMS_ITS | Encounter Summary ---
Author Organization [facility] Address [address] [place] [phone] Care Team Providers Care Management Engineer Name Role Phone Carlita Villegas MD Primary Care Provider [phone] Encounter Details Date Type Department Care Team (Late st Contact Info) Description 11/09/2024 Lab Requisition [facility] - Main Lab 299 [facility] [place] [address] Giovanni Coffey MD [address] [place] [phone] Essential (primary) hypertension; Hyperlipidemia, unspecified Social [...] Description 04/23/2025 3:30 PM EDT Office Visit [facility] Hematology Oncology [address] [place] [address] Demetrius Parkinson MD [address] [place] [address] 05/27/2025 9:30 AM EDT Appointment [facility] Bone Density [address] [place] [address] 06/17/2025 10:00 AM EST Office Visit Endocrinology [address] [phone] Gisell Villegas PA [address] [place], [place] 07/31/2025 1:15 PM EST Office Visit Adult Medicine [place] - [address] [phone] Carlita Villegas MD [address] [place] [address] 08/26/2025 10:00 AM EST Office Visit Vascular Surgery - [place] [address] [place] [address] Priya Lopez MD [address] [place] [phone] documented as of this encounter Procedures Procedure [...] mmol/L LAB CHEMISTRY METHOD 11/10/2024 1:09 PM [facility] Potassium 4.1 3.5 - 5.5 mmol/L LAB CHEMISTRY METHOD 11/10/2024 1:09 PM [facility] Chloride 103 96 - 110 mmol/L LAB CHEMISTRY METHOD 11/10/2024 1:09 PM [facility] CO2 27 21 - 32 mmol/L LAB CHEMISTRY METHOD 11/10/2024 1:09 PM [facility] Anion Gap 7 3 - 11 LAB CHEMISTRY METHOD 11/10/2024 1:09 PM [facility] Glucose 86 70 - 100 mg/dL LAB CHEMISTRY METHOD 11/10/2024 1:09 PM [facility] BUN 13 5 - 25 mg/dL LAB CHEMISTRY METHOD 11/10/2024 1:09 PM [facility] Creatinine 0.66 0.50 - 1.10 mg/dL LAB CHEMISTRY METHOD 11/10/2024 1:09 PM [facility] eGFR 89 >=60 mL/min/1. 73m2 LAB CHEMISTRY METHOD 11/10/2024 1:09 PM [facility] Comment:Calculation based on the Chronic Kidney Disease Epidemiology Collaboration (CKD-EPI) equation refit without adjustment for race. BUN/Creatinine Ratio 19.7 LAB CHEMISTRY METHOD 11/10/2024 1:09 PM [facility] Calcium 9.0 8.5 - 10.5 mg/dL LAB CHEMISTRY METHOD 11/10/2024 1:09 PM [facility] AST (SGOT) 17 10 - 42 unit/L LAB CHEMISTRY METHOD 11/10/2024 1:09 PM [facility] ALT (SGPT) 27 10 - 60 unit/L LAB CHEMISTRY METHOD 11/10/2024 1:09 PM [facility] Alkaline Phosphatase 140(H) 42 - 121 unit/L LAB CHEMISTRY METHOD 11/10/2024 1:09 PM [facility] Total Protein 6.7 6.0 - 8.0 g/dL LAB CHEMISTRY METHOD 11/10/2024 1:09 PM [facility] Albumin 3.3 3.2 - 5.0 g/dL LAB CHEMISTRY METHOD 11/10/2024 1:09 PM [facility] Total Bilirubin 0.4 0.0 - 1.4 mg/dL LAB CHEMISTRY METHOD 11/10/2024 1:09 PM EDT [facility] Blood Venous blood specimen / Unknown Venipuncture / Unknown 11/10/2024 6:40 AM EDT 11/10/2024 11:16 AM EDT us Giovanni Coffey MD LAB BLOOD ORDERABLES Final Resul t [facility] [address] [place] [address], [place] [phone] * (ABNORMAL) Complete blood count (11/10/2024 6:40 AM EDT) WBC 3.7(L) 4.8 - 10.8 K/mcL LAB HEMETOLOGY METHOD 11/10/2024 11:50 AM [facility] RBC 3.70(L) 3.80 - 4.80 M/mcL LAB HEMETOLOGY METHOD 11/10/2024 11:50 AM [facility] Hemoglobin 11.6 11.5 - 16.0 g/dL LAB HEMETOLOGY METHOD 11/10/2024 11:50 AM [facility] Hematocrit 36.4 35.0 - 47.0 % LAB HEMETOLOGY METHOD 11/10/2024 11:50 AM [facility] MCV 98.4(H) 79.0 - 98.0 FL LAB HEMETOLOGY METHOD 11/10/2024 11:50 AM [facility] MCH 31.4 27.0 - 32.0 pcg LAB HEMETOLOGY METHOD 11/10/2024 11:50 AM [facility] MCHC 31.9(L) 32.0 - 37.0 g/dL LAB HEMETOLOGY METHOD 11/10/2024 11:50 AM [facility] RDW 13.2 11.0 - 15.0 % LAB HEMETOLOGY METHOD 11/10/2024 11:50 AM EDT [facility] Platelets 210 130 - 400 K/mcL LAB HEMETOLOGY METHOD 11/10/2024 11:50 AM EDT [facility] MPV 10.7 7.0 - 11.0 FL LAB HEMETOLOGY METHOD 11/10/2024 11:50 AM EDT [facility] NRBC 0.0 <1.0 % LAB HEMETOLOGY METHOD 11/10/2024 11:50 AM EDT [facility] NRBC Absolute 0.00 <0.10 K/mcL LAB HEMETOLOGY METHOD 11/10/2024 11:50 AM EDT [facility] Blood Venous blood specimen / Unknown Venipuncture / Unknown 11/10/2024 6:40 AM EDT 11/10/2024 11:16 AM EDT us Giovanni Coffey MD LAB BLOOD ORDERABLES Final Resul t [facility] [address] [place] [address], documented in this encounter Visit Diagnoses Diagnosis Essential (primary) hypertension Unspecified essential hypertension Hyperlipidemia, unspecified documented in this encounter Care Teams Management Engineer Relationship Specialty Start Date End Date Carlita Villegas MD [address] [place] [phone] PCP - General 08/25/22 documented as of this encounter
--- OUTSIDE RECORDS SUMMARY | 2025-04-17 08:41 | XMS_ITS | Encounter Summary ---
Author Organization [facility] Address [address] [place] [phone] Care Team Providers Care Trail Construction Worker Name Role Phone Carlita Villegas MD Primary Care Provider [phone] Encounter Details Date Type Department Care Team (Late Contact Info) Description 11/19/[address] [facility] - Main Lab 299 [facility] [place] [address] Giovanni Coffey MD [address] [place] [phone] Urinary tract infection, site not specified [...] Description 04/23/2025 3:30 PM EDT Office Visit [facility] Hematology Oncology [address] [place] [address] Demetrius Parkinson MD [address] [place] [address] 05/27/2025 9:30 AM EDT Appointment [facility] Bone Density [address] [place] [address] 06/17/2025 10:00 AM EST Office Visit Endocrinology - [address] [phone] Gisell Villegas PA [address] [place], [place] 07/31/2025 1:15 PM EST Office Visit Adult Medicine [place] - [address] [phone] Carlita Villegas MD [address] [place], [place] 08/26/2025 10:00 AM EST Office Visit Vascular Surgery - [place] [address] [place] [address] Priya Lopez MD [address] [place] [phone] documented as of this encounter Procedures Procedure [...] reflex microscopic (11/18/2024 12:00 AM EDT) Specific [place] Urine 1.020 1.003 - 1.030 LAB URINALYSIS - AUTOMATED METHOD 11/19/2024 12:[address] [facility] pH, Urine 6.0 5.0 - 8.0 pH LAB URINALYSIS - AUTOMATED METHOD 11/19/2024 12:[address] [facility] Leukocytes, Urine Moderate(A) Negative LAB URINALYSIS - AUTOMATED METHOD 11/19/2024 12:49 PM [facility] Nitrite, Urine Positive(A) Negative LAB URINALYSIS - AUTOMATED METHOD 11/19/2024 12:49 PM [facility] Protein, Urine 30(A) <=Trace mg/dL LAB URINALYSIS - AUTOMATED METHOD 11/19/2024 12:49 PM [facility] Glucose, Urine Negative Negative mg/dL LAB URINALYSIS - AUTOMATED METHOD 11/19/2024 12:49 PM [facility] Ketones, Urine Trace(A) Negative mg/dL LAB URINALYSIS - AUTOMATED METHOD 11/19/2024 12:49 PM [facility] Urobilinogen , Urine 0.2 0.2 - 1.0 mg/dL LAB URINALYSIS - AUTOMATED METHOD 11/19/2024 12:49 PM [facility] Bilirubin, Urine Negative Negative LAB URINALYSIS - AUTOMATED METHOD 11/19/2024 12:49 PM [facility] Blood, Urine Small(A) Negative LAB URINALYSIS - AUTOMATED METHOD 11/19/2024 12:49 PM [facility] RBC, Urine >100(H) 0 - 4 /HPF 11/19/2024 12:49 PM [facility] WBC, Urine >100(H) 0 - 4 /HPF 11/19/2024 12:49 PM [facility] Squamous Epithelial, Urine 20 0 - 60 /LPF 11/19/2024 12:49 PM [facility] Bacteria, Urine Many(A) Negative /HPF 11/19/2024 12:49 PM [facility] Mucus, Urine Small None /HPF 11/19/2024 12:49 PM [facility] Urine Urine specimen obtained by clean catch procedure / Unknown Non-blood Collection / Unknown 11/18/2024 11/19/2024 12:13 PM EDT Giovanni Coffey MD LAB URINE ORDERABLES Final Resul t Performing Organization Address City/[facility]/ZIP Co de Phone Number [facility] [address] [place] [address], [place] [phone] * (ABNORMAL) Culture urine (11/18/2024 12:00 AM EDT) Culture, Urine >100,000 CFU/mL Escherichia coli(A) DANO 11/21/2024 11:[address] [facility] Urine Urine specimen obtained by [...] MICROBIOLOGY - GENERAL ORDER ERWIN Final Result [facility] [address] [place] [address], documented in this encounter Visit Diagnoses Diagnosis Urinary tract infection, site not specified documented in this encounter Care Teams Trail Construction Worker Relationship Specialty Start Date End Date Carlita Villegas MD [address] [place] [phone] PCP - General 08/25/22 documented as of this encounter
--- OUTSIDE RECORDS SUMMARY | 2025-04-17 08:41 | XMS_ITS | Encounter Summary ---
Author Organization [facility] Address [address] [place] [phone] Care Team Providers Care Basket Machine Operator Name Role Phone Carlita Villegas MD Primary Care Provider [phone] Encounter Details Date Type Department Care Team (Late Contact Info) Description 11/06/2024 Lab Requisition [facility] - Main Lab 299 [facility] [place] [address] Giovanni Coffey MD [address] [place] [phone] Essential (primary) hypertension; Hyperlipidemia, unspecified; Unspecified [...] Description 04/23/2025 3:30 PM EDT Office Visit [facility] Hematology Oncology [address] [place] [address] Demetrius Parkinson MD [address] [place] [address] 05/27/2025 9:30 AM EDT Appointment [facility] Bone Density [address] [place] [address] 06/17/2025 10:00 AM EST Office Visit Endocrinology [address] [phone] Gisell Villegas PA [address] [place] [address] 07/31/2025 1:15 PM EST Office Visit Adult Medicine [place] - [address] [phone] Carlita Villegas MD [address] [place] [address] 08/26/2025 10:00 AM EST Office Visit Vascular Surgery - [place] [address] [place] [phone] Priya Lopez MD [address] [place] [phone] documented as of this encounter Procedures Procedure [...] Comprehensive metabolic panel (11/07/2024 8:03 AM EDT) [facility] Sodium 139 133 - 145 mmol/L LAB CHEMISTRY METHOD 11/07/2024 11:58 AM [facility] Potassium 4.0 3.5 - 5.5 mmol/L LAB CHEMISTRY METHOD 11/07/2024 11:58 AM [facility] Chloride 105 96 - 110 mmol/L LAB CHEMISTRY METHOD 11/07/2024 11:58 AM [facility] CO2 28 21 - 32 mmol/L LAB CHEMISTRY METHOD 11/07/2024 11:58 AM [facility] Anion Gap 6 3 - 11 LAB CHEMISTRY METHOD 11/07/2024 11:58 AM [facility] Glucose 86 70 - 100 mg/dL LAB CHEMISTRY METHOD 11/07/2024 11:58 AM [facility] BUN 15 5 - 25 mg/dL LAB CHEMISTRY METHOD 11/07/2024 11:58 AM [facility] Creatinine 0.62 0.50 - 1.10 mg/dL LAB CHEMISTRY METHOD 11/07/2024 11:58 AM [facility] eGFR 90 >=60 mL/min/1. 73m2 LAB CHEMISTRY METHOD 11/07/2024 11:58 AM [facility] Comment:Calculation based on the Chronic Kidney Disease Epidemiology Collaboration (CKD-EPI) equation refit without adjustment for race. BUN/Creatinine Ratio 24.2 LAB CHEMISTRY METHOD 11/07/2024 11:58 AM [facility] Calcium 9.1 8.5 - 10.5 mg/dL LAB CHEMISTRY METHOD 11/07/2024 11:58 AM [facility] AST (SGOT) 21 10 - 42 unit/L LAB CHEMISTRY METHOD 11/07/2024 11:58 AM [facility] ALT (SGPT) 31 10 - 60 unit/L LAB CHEMISTRY METHOD 11/07/2024 11:58 AM [facility] Alkaline Phosphatase 152(H) 42 - 121 unit/L LAB CHE[facility]STRY [facility] Total Protein 6.8 6.0 - 8.0 g/dL LAB CHEMISTRY METHOD 11/07/2024 11:58 AM [facility] Albumin 3.3 3.2 - 5.0 g/dL LAB CHEMISTRY METHOD 11/07/2024 11:58 AM [facility] Total Bilirubin 0.5 0.0 - 1.4 mg/dL LAB CHEMISTRY METHOD 11/07/2024 11:58 AM [facility] Blood Venous blood specimen / Unknown Venipuncture / Unknown 11/07/2024 8:03 AM EDT 11/07/2024 10:42 AM EDT us Giovanni Coffey MD LAB BLOOD ORDERABLES Final Resul t [facility] [address] [place] [address], * (ABNORMAL) Complete blood count (11/07/2024 8:03 AM EDT) WBC 4.9 4.8 - 10.8 K/mcL LAB HEMETOLOGY METHOD 11/07/2024 11:17 AM [facility] RBC 3.70(L) 3.80 - 4.80 M/mcL LAB HEMETOLOGY METHOD 11/07/2024 11:17 AM [facility] Hemoglobin 11.5 11.5 - 16.0 g/dL LAB HEMETOLOGY METHOD 11/07/2024 11:17 AM [facility] Hematocrit 35.7 35.0 - 47.0 % LAB HEMETOLOGY METHOD 11/07/2024 11:17 AM [facility] MCV 96.7 79.0 - 98.0 FL LAB HEMETOLOGY METHOD 11/07/2024 11:17 AM [facility] MCH 31.2 27.0 - 32.0 pcg LAB HEMETOLOGY METHOD 11/07/2024 11:17 AM EDT [facility] MCHC 32.2 32.0 - 37.0 g/dL LAB HEMETOLOGY METHOD 11/07/2024 11:17 AM EDT [facility] RDW 13.4 11.0 - 15.0 % LAB HEMETOLOGY METHOD 11/07/2024 11:17 AM EDT [facility] Platelets 222 130 - 400 K/mcL LAB HEMETOLOGY METHOD 11/07/2024 11:17 AM EDT [facility] MPV 10.4 7.0 - 11.0 FL LAB HEMETOLOGY METHOD 11/07/2024 11:17 AM EDT [facility] NRBC 0.0 <1.0 % LAB HEMETOLOGY METHOD 11/07/2024 11:17 AM EDT [facility] NRBC Absolute 0.00 <0.10 K/mcL LAB HEMETOLOGY METHOD 11/07/2024 11:17 AM EDT [facility] Blood Venous blood specimen / Unknown Venipuncture / Unknown 11/07/2024 8:03 AM EDT 11/07/2024 10:40 AM EDT us Giovanni Coffey MD LAB BLOOD ORDERABLES Final Resul t [facility] [address] [place] [address], * (ABNORMAL) C-reactive protein (11/07/2024 8:03 AM EDT) C-Reactive Protein 0.97(H) <=0.50 mg/dL LAB CHEMISTRY METHOD 11/07/2024 11:56 AM EDT [facility] Blood Venous blood specimen / Unknown Venipuncture / Unknown 11/07/2024 8:03 AM EDT 11/07/2024 10:42 AM EDT us Giovanni Coffey MD LAB BLOOD ORDERABLES Final Resul t [facility] [address] [place] [address], documented in this encounter Visit Diagnoses Diagnosis Essential (primary) hypertension Unspecified essential hypertension Hyperlipidemia, unspecified Unspecified osteoarthritis, unspecified site Encounter for other orthopedic aftercare documented in this encounter Care Teams Basket Machine Operator Relationship Specialty Start Date End Date Carlita Villegas MD [address] [place] [phone] PCP - General 08/25/22 documented as of this encounter
--- OUTSIDE RECORDS SUMMARY | 2025-04-17 08:41 | XMS_ITS | Encounter Summary ---
Author Organization [facility] Address [address] [place] [phone] Care Team Providers Care Ortho Tech Name Role Phone Carlita Villegas MD Primary Care Provider [phone] Encounter Details Date Type Department Care Team (Late Contact Info) Description 11/07/2024 Lab Requisition [facility] - Main Lab 299 [facility] [place] [place] [address] Giovanni Coffey MD [address] [place] [phone] Essential (primary) hypertension Social History Tobacco [...] Description 04/23/2025 3:30 PM EDT Office Visit [facility] Hematology Oncology [address] [place] [phone] Demetrius Parkinson MD [address] [place] [address] 05/27/2025 9:30 AM EDT Appointment [facility] Bone Density [address] [place] [address] 06/17/2025 10:00 AM EST Office Visit Endocrinology - [address] [phone] Gisell Villegas PA [address] [place], [place] 07/31/2025 1:15 PM EST Office Visit Adult [facility] [place] - [address] [phone] Carlita Villegas MD [address] [place], [place] 08/26/2025 10:00 AM EST Office Visit Vascular Surgery - [place] [address] [place] [phone] Priya Lopez MD [address] [place] [phone] documented as of this encounter Procedures Procedure Name Priority Date/Time Associated Diagnosis Comments URINALYSIS WITH REFLEX MICROSCOPIC Routine 11/06/2024 9:28 PM EDT Essential (primary) hypertension URINALYSIS WITH REFLEX MICROSCOPIC Routine 11/06/2024 9:28 PM EDT Essential (primary) hypertension CULTURE URINE Routine 11/06/2024 9:28 PM EDT Essential (primary) hypertension documented in this encounter Results * (ABNORMAL) Urinalysis with reflex microscopic (11/06/2024 9:28 PM EDT) Specific [place] Urine 1.014 1.003 - 1.030 LAB URINALYSIS [...] t [facility] [address] [place] [address], * (ABNORMAL) Culture urine (11/06/2024 9:28 PM [...] MICROBIOLOGY - GENERAL ORDER ERWIN Final Result [facility] [address] [place] [address], documented in this encounter Visit Diagnoses Diagnosis Essential (primary) hypertension Unspecified essential hypertension documented in this encounter Care Teams Ortho Tech Relationship Specialty Start Date End Date Carlita Villegas MD [address] [place] [phone] PCP - General 08/25/22 documented as of this encounter
--- OUTSIDE RECORDS SUMMARY | 2025-04-17 08:41 | XMS_ITS | Encounter Summary ---
Author Organization [facility] Address [address] [place] [phone] Care Team Providers Care Tutoring Assistant Name Role Phone Carlita Villegas MD Primary Care Provider [phone] Encounter Details Date Type Department Care Team (Late Contact Info) Description 12/11/2024 Lab Requisition [facility] - Main Lab 299 [facility] [employer] [place] [address] Giovanni Coffey MD [address] [place] [phone] Essential (primary) hypertension; Hyperlipidemia, unspecified; Unspecified [...] Description 04/23/2025 3:30 PM EDT Office Visit [facility] Hematology Oncology [address] [place] [address] Demetrius Parkinson MD [address] [place] [address] 05/27/2025 9:30 AM EDT Appointment [facility] Bone Density [address] [place] [address] 06/17/2025 10:00 AM EST Office Visit Endocrinology [address] [phone] Gisell Villegas PA [address] [place], [place] 07/31/2025 1:15 PM EST Office Visit Adult Medicine [place] - [address] [phone] Carlita Villegas MD [address] [place] [address] 08/26/2025 10:00 AM EST Office Visit Vascular Surgery - [place] [address] [place] [phone] Priya Lopez MD [address] [place] [address] documented as of this encounter Procedures Procedure Name Priority Date/Time Associated Diagnosis Comments COMPLETE BLOOD COUNT Routine 12/12/2024 7:00 AM EDT Essential (primary) hypertension Hyperlipidemia, unspecified Unspecified osteoarthritis, unspecified site Encounter for other orthopedic aftercare C-REACTIVE PROTEIN Routine 12/12/2024 7: 00 AM EDT Essential (primary) hypertension Hyperlipidemia, unspecified Unspecified osteoarthritis, unspecified site Encounter for other orthopedic aftercare COMPREHENSIVE METABOLIC PANEL Routine 12/12/2024 7:00 AM EDT Essential (primary) hypertension Hyperlipidemia, unspecified Unspecified osteoarthritis, unspecified site Encounter for other orthopedic aftercare documented in this encounter Results * Comprehensive metabolic panel (12/12/2024 7:00 AM EDT) [facility] Signature Sodium 137 133 - 145 mmol/L LAB CHEMISTRY METHOD 12/12/2024 9:07 AM EDT [facility] Potassium 3.8 3.5 - 5.5 mmol/L LAB CHEMISTRY METHOD 12/12/2024 9:07 AM [facility] Chloride 106 96 - 110 mmol/L LAB CHEMISTRY METHOD 12/12/2024 9:07 AM [facility] CO2 27 21 - 32 mmol/L LAB CHEMISTRY METHOD 12/12/2024 9:07 AM [facility] Anion Gap 4 3 - 11 LAB CHEMISTRY METHOD 12/12/2024 9:07 AM [facility] Glucose 97 70 - 100 mg/dL LAB CHEMISTRY METHOD 12/12/2024 9:07 AM [facility] BUN 8 5 - 25 mg/dL LAB CHEMISTRY METHOD 12/12/2024 9:07 AM [facility] Creatinine 0.62 0.50 - 1.10 mg/dL LAB CHEMISTRY METHOD 12/12/2024 9:07 AM [facility] eGFR 90 >=60 mL/min/1. 73m2 LAB CHEMISTRY METHOD 12/12/2024 9:07 AM [facility] Comment:Calculation based on the Chronic Kidney Disease Epidemiology Collaboration (CKD-EPI) equation refit without adjustment for race. BUN/Creatinine Ratio 12.9 LAB CHEMISTRY METHOD 12/12/2024 9:07 AM [facility] Calcium 8.8 8.5 - 10.5 mg/dL LAB CHEMISTRY METHOD 12/12/2024 9:07 AM [facility] AST (SGOT) 12 10 - 42 unit/L LAB CHEMISTRY METHOD 12/12/2024 9:07 AM [facility] ALT (SGPT) 14 10 - 60 unit/L LAB CHEMISTRY METHOD 12/12/2024 9:07 AM [facility] Alkaline Phosphatase 55 42 - 121 unit/L LAB CHEMISTRY METHOD 12/12/2024 9:07 AM [facility] Total Protein 6.3 6.0 - 8.0 g/dL LAB CHEMISTRY METHOD 12/12/2024 9:07 AM EDT [facility] Albumin 3.2 3.2 - 5.0 g/dL LAB CHEMISTRY METHOD 12/12/2024 9:07 AM [facility] Total Bilirubin 0.4 0.0 - 1.4 mg/dL LAB CHEMISTRY METHOD 12/12/2024 9:07 AM EDT [facility] Blood Venous blood specimen / Unknown Venipuncture / Unknown 12/12/2024 7:00 AM EDT 12/12/2024 8:37 AM EDT us Giovanni Coffey MD LAB BLOOD ORDERABLES Final Resul t [facility] [address] [place] [address], * (ABNORMAL) Complete blood count (12/12/2024 7:00 AM EDT) WBC 3.8(L) 4.8 - 10.8 K/mcL LAB HEMETOLOGY METHOD 12/12/2024 9:09 AM [facility] RBC 3.50(L) 3.80 - 4.80 M/mcL LAB HEMETOLOGY METHOD 12/12/2024 9:09 AM [facility] Hemoglobin 11.0(L) 11.5 - 16.0 g/dL LAB HEMETOLOGY METHOD 12/12/2024 9:09 AM [facility] Hematocrit 33.9(L) 35.0 - 47.0 % LAB HEMETOLOGY METHOD 12/12/2024 9:09 AM [facility] MCV 96.0 79.0 - 98.0 FL LAB HEMETOLOGY METHOD 12/12/2024 9:09 AM [facility] MCH 31.2 27.0 - 32.0 pcg LAB HEMETOLOGY METHOD 12/12/2024 9:09 AM EDT [facility] MCHC 32.4 32.0 - 37.0 g/dL LAB HEMETOLOGY METHOD 12/12/2024 9:09 AM EDT [facility] RDW 13.5 11.0 - 15.0 % LAB HEMETOLOGY METHOD 12/12/2024 9:09 AM EDT [facility] Platelets 213 130 - 400 K/mcL LAB HEMETOLOGY METHOD 12/12/2024 9:09 AM EDT [facility] MPV 10.3 7.0 - 11.0 FL LAB HEMETOLOGY METHOD 12/12/2024 9:09 AM EDT [facility] NRBC 0.0 <1.0 % LAB HEMETOLOGY METHOD 12/12/2024 9:09 AM EDT [facility] NRBC Absolute 0.00 <0.10 K/mcL LAB HEMETOLOGY METHOD 12/12/2024 9:09 AM EDT [facility] Blood Venous blood specimen / Unknown Venipuncture / Unknown 12/12/2024 7:00 AM EDT 12/12/2024 8:37 AM EDT us Giovanni Coffey MD LAB BLOOD ORDERABLES Final Resul t [facility] [address] [place] [address], * C-reactive protein (12/12/2024 7:00 AM EDT) C-Reactive Protein <0.29 <=0.50 mg/dL LAB CHEMISTRY METHOD 12/12/2024 9:14 AM EDT [facility] Blood Venous blood specimen / Unknown Venipuncture / Unknown 12/12/2024 7:00 AM EDT 12/12/2024 8:37 AM EDT us Giovanni Coffey MD LAB BLOOD ORDERABLES Final Resul t [facility] [address] [place] [address], documented in this encounter Visit Diagnoses Diagnosis Essential (primary) hypertension Unspecified essential hypertension Hyperlipidemia, unspecified Unspecified osteoarthritis, unspecified site Encounter for other orthopedic aftercare documented in this encounter Care Teams Tutoring Assistant Relationship Specialty Start Date End Date Carlita Villegas MD [address] [place] [phone] PCP - General 08/25/22 documented as of this encounter
--- OUTSIDE RECORDS SUMMARY | 2025-04-17 08:41 | XMS_ITS | Encounter Summary ---
Author Organization [facility] Address [address] [place] [phone] Care Team Providers Care Business Development Name Role Phone Carlita Villegas MD Primary Care Provider Encounter Details Date Type Department Care Team (Late st Contact Info) Description 11/01/2024 Lab Requisition [facility] - Main Lab 299 [facility] [employer] [place] [address] Giovanni Coffey MD [address] [place] [phone] Essential (primary) hypertension; Hyperlipidemia, unspecified Social [...] Description 04/23/2025 3:30 PM EDT Office Visit [facility] Hematology Oncology [address] [place] [address] Demetrius Parkinson MD [address] [place] [address] 05/27/2025 9:30 AM EDT Appointment [facility] Bone Density [address] [place] [address] 06/17/2025 10:00 AM EST Office Visit Endocrinology [address] [phone] Gisell Villegas PA 444 [place], [place] 07/31/2025 1:15 PM EST Office Visit Adult Medicine [place] - [address] [phone] Carlita Villegas MD [address] [place] [address] 08/26/2025 10:00 AM EST Office Visit Vascular Surgery - [place] [address] [place] [address] Priya Lopez MD [address] [place] [phone] documented as of this encounter Procedures Procedure [...] [facility] Comment:Calculation based on the Chronic Kidney Disease Epidemiology Collaboration (CKD-EPI) equation refit without adjustment for race. BUN/Creatinine Ratio 23.7 LAB [...] mg/dL LAB CHEMISTRY METHOD 11/03/2024 12:06 PM EDT [facility] Blood Venous blood specimen / Unknown Venipuncture / Unknown 11/03/2024 5:42 AM EDT 11/03/2024 10:29 AM EDT us Giovanni Coffey MD LAB BLOOD ORDERABLES Final Resul t [facility] 299 [place] [address], [place] [phone] * (ABNORMAL) Complete blood count (11/03/2024 5:42 [...] LAB HEMETOLOGY METHOD 11/03/2024 11:18 AM EDT [facility] Platelets 253 130 - 400 K/mcL LAB HEMETOLOGY METHOD 11/03/2024 11:18 AM EDT [facility] MPV 10.4 7.0 - 11.0 FL LAB HEMETOLOGY METHOD 11/03/2024 11:18 AM EDT [facility] NRBC 0.0 <1.0 % LAB HEMETOLOGY METHOD 11/03/2024 11:18 AM EDT [facility] NRBC Absolute 0.00 <0.10 K/mcL LAB HEMETOLOGY METHOD 11/03/2024 11:18 AM EDT [facility] Blood Venous blood specimen / Unknown Venipuncture / Unknown 11/03/2024 5:42 AM EDT 11/03/2024 10:29 AM EDT us Giovanni Coffey MD LAB BLOOD ORDERABLES Final Resul t [facility] [address] [place] [address], documented in this encounter Visit Diagnoses Diagnosis Essential (primary) hypertension Unspecified essential hypertension Hyperlipidemia, unspecified documented in this encounter Care Teams Business Development Relationship Specialty Start Date End Date Carlita Villegas MD [address] [place] [phone] PCP - General 08/25/22 documented as of this encounter
--- OUTSIDE RECORDS SUMMARY | 2025-04-17 08:41 | XMS_ITS | Encounter Summary ---
Author Organization [facility] Address [address] [place] [phone] Care Team Providers Care Tandem Mill Sticker Name Role Phone Carlita Villegas MD Primary Care Provider [phone] Encounter Details Date Type Department Care Team (Late st Contact Info) Description 10/27/2024 Lab Requisition [facility] - Main Lab 299 [facility] [employer] [place] [address] Giovanni Coffey MD [address] [place] [phone] Essential (primary) hypertension; Hyperlipidemia, unspecified Social [...] 04/23/2025 3:30 PM EDT Office Visit [facility] Hematology Oncology [address] [place] [address] Demetrius Parkinson MD [address] [place] [address] 05/27/2025 9:30 AM EDT Appointment [facility] Bone Density [address] [place] [address] 06/17/2025 10:00 AM EST Office Visit Endocrinology [address] [phone] Gisell Villegas PA [address] [place], [place] 07/31/2025 1:15 PM EST Office Visit Adult Medicine [place] - [address] [phone] Carlita Villegas MD [address] [place] [address] 08/26/2025 10:00 AM EST Office Visit Vascular Surgery - [place] [address] [place] [address] Priya Lopez MD [address] [place] [phone] documented as of this encounter Procedures Procedure [...] mmol/L LAB CHEMISTRY METHOD 10/27/2024 12:56 PM [facility] Potassium 4.9 3.5 - 5.5 mmol/L LAB CHEMISTRY METHOD 10/27/2024 12:56 PM [facility] Comment:Hemolysis present Chloride 104 96 - 110 mmol/L LAB CHEMISTRY METHOD 10/27/2024 12:56 PM [facility] CO2 25 21 - 32 mmol/L LAB CHEMISTRY METHOD 10/27/2024 12:56 PM [facility] Anion Gap 8 3 - 11 LAB CHEMISTRY METHOD 10/27/2024 12:56 PM [facility] Glucose 80 70 - 100 mg/dL LAB CHEMISTRY METHOD 10/27/2024 12:56 PM [facility] BUN 18 5 - 25 mg/dL LAB CHEMISTRY METHOD 10/27/2024 12:56 PM [facility] Creatinine 0.69 0.50 - 1.10 mg/dL LAB CHEMISTRY METHOD 10/27/2024 12:56 PM [facility] eGFR 88 >=60 mL/min/1. 73m2 LAB CHEMISTRY METHOD 10/27/2024 12:56 PM [facility] Comment:Calculation based on the Chronic Kidney Disease Epidemiology Collaboration (CKD-EPI) equation refit without adjustment for race. BUN/Creatinine Ratio 26.1 LAB CHEMISTRY METHOD 10/27/2024 12:56 PM [facility] Calcium 8.9 8.5 - 10.5 mg/dL LAB CHEMISTRY METHOD 10/27/2024 12:56 PM [facility] AST (SGOT) 67(H) 10 - 42 unit/L LAB CHEMISTRY METHOD 10/27/2024 12:56 PM [facility] Comment:Hemolysis present ALT (SGPT) 73(H) 10 - 60 unit/L LAB CHEMISTRY METHOD 10/27/2024 12:56 PM [facility] Alkaline Phosphatase 188(H) 42 - 121 unit/L LAB CHEMISTRY METHOD 10/27/2024 12:56 PM [facility] Total Protein 6.9 6.0 - 8.0 g/dL LAB CHEMISTRY METHOD 10/27/2024 12:56 PM [facility] Albumin 3.1(L) 3.2 - 5.0 g/dL LAB CHEMISTRY METHOD 10/27/2024 12:56 PM EDT [facility] Total Bilirubin 0.5 0.0 - 1.4 mg/dL LAB CHEMISTRY METHOD 10/27/2024 12:56 PM EDT [facility] Blood Venous blood specimen / Unknown Venipuncture / Unknown 10/27/2024 6:25 AM EDT 10/27/2024 10:32 AM EDT us Giovanni Coffey MD LAB BLOOD ORDERABLES Final Resul t [facility] 299 [place] [address], * Complete blood count (10/27/2024 6:25 AM EDT) WBC 5.0 4.8 - 10.8 K/mcL LAB HEMETOLOGY METHOD 10/27/2024 11:30 AM [facility] RBC 3.80 3.80 - 4.80 M/mcL LAB HEMETOLOGY METHOD 10/27/2024 11:30 AM [facility] Hemoglobin 12.0 11.5 - 16.0 g/dL LAB HEMETOLOGY METHOD 10/27/2024 11:30 AM [facility] Hematocrit 36.9 35.0 - 47.0 % LAB HEMETOLOGY METHOD 10/27[facility]24 [facility] MCV 97.9 79.0 - 98.0 FL LAB HEMETOLOGY METHOD 10/27/2024 11:30 AM [facility] MCH 31.8 27.0 - 32.0 pcg LAB HEMETOLOGY METHOD 10/27/2024 11:30 AM [facility] MCHC 32.5 32.0 - 37.0 g/dL LAB HEMETOLOGY METHOD 10/27/2024 11:30 AM [facility] RDW 13.3 11.0 - 15.0 % LAB HEMETOLOGY METHOD 10/27/2024 11:30 AM EDT [facility] Platelets 293 130 - 400 K/mcL LAB HEMETOLOGY METHOD 10/27/2024 11:30 AM EDT [facility] MPV 11.0 7.0 - 11.0 FL LAB HEMETOLOGY METHOD 10/27/2024 11:30 AM EDT [facility] NRBC 0.0 <1.0 % LAB HEMETOLOGY METHOD 10/27/2024 11:30 AM EDT [facility] NRBC Absolute 0.00 <0.10 K/mcL LAB HEMETOLOGY METHOD 10/27/2024 11:30 AM EDT [facility] Blood Venous blood specimen / Unknown Venipuncture / Unknown 10/27/2024 6:25 AM EDT 10/27/2024 10:32 AM EDT us Giovanni Coffey MD LAB BLOOD ORDERABLES Final Resul t [facility] [address] [place] [address], documented in this encounter Visit Diagnoses Diagnosis Essential (primary) hypertension Unspecified essential hypertension Hyperlipidemia, unspecified documented in this encounter Care Teams Tandem Mill Sticker Relationship Specialty Start Date End Date Carlita Villegas MD [address] [place] [phone] PCP - General 08/25/22 documented as of this encounter
--- OUTSIDE RECORDS SUMMARY | 2025-04-17 08:41 | XMS_ITS | Encounter Summary ---
Author Organization [facility] Address [address] [place] [phone] Care Team Providers Care Economic History Teacher Name Role Phone Carlita Villegas MD Primary Care Provider [phone] Encounter Details Date Type Department Care Team (Late Contact Info) Description 11/20/2024 Lab Requisition [facility] - Main Lab 299 [facility] [place] [address] Giovanni Coffey MD [address] [place] [phone] Essential (primary) hypertension; Hyperlipidemia, unspecified; Unspecified [...] 04/23/2025 3:30 PM EDT Office Visit [facility] Hematology Oncology [address] [place] [address] Demetrius Parkinson MD [address] [place] [address] 05/27/2025 9:[address] [facility] Bone Density [address] [place] [address] 06/17/2025 10:00 AM EST Office Visit Endocrinology [address] [phone] Gisell Villegas PA 444 [place], [place] 07/31/2025 1:15 PM EST Office Visit Adult Medicine [place] - [address] [phone] Carlita Villegas MD [address] [place] [address] 08/26/2025 10:00 AM EST Office Visit Vascular Surgery - [place] [address] [place] [phone] Priya Lopez MD [address] [place] [phone] documented as of this encounter Procedures Procedure [...] Comprehensive metabolic panel (11/21/2024 7:13 AM EDT) [facility] Signature Sodium 140 133 - 145 mmol/L LAB CHEMISTRY METHOD 11/21/2024 11:06 AM EDT [facility] Potassium 4.2 3.5 - 5.5 mmol/L LAB CHEMISTRY METHOD 11/21/2024 11:06 AM [facility] Chloride 105 96 - 110 mmol/L LAB CHEMISTRY METHOD 11/21/2024 11:06 AM [facility] CO2 29 21 - 32 mmol/L LAB CHEMISTRY METHOD 11/21/2024 11:06 AM [facility] Anion Gap 6 3 - 11 LAB CHEMISTRY METHOD 11/21/2024 11:06 AM [facility] Glucose 81 70 - 100 mg/dL LAB CHEMISTRY METHOD 11/21/2024 11:06 AM [facility] BUN 15 5 - 25 mg/dL LAB CHEMISTRY METHOD 11/21/2024 11:06 AM [facility] Creatinine 0.68 0.50 - 1.10 mg/dL LAB CHEMISTRY METHOD 11/21/2024 11:06 AM [facility] eGFR 88 >=60 mL/min/1. 73m2 LAB CHEMISTRY METHOD 11/21/2024 11:06 AM [facility] Comment:Calculation based on the Chronic Kidney Disease Epidemiology Collaboration (CKD-EPI) equation refit without adjustment for race. BUN/Creatinine Ratio 22.1 LAB CHEMISTRY METHOD 11/21/2024 11:06 AM [facility] Calcium 9.2 8.5 - 10.5 mg/dL LAB CHEMISTRY METHOD 11/21/2024 11:06 AM [facility] AST (SGOT) 17 10 - 42 unit/L LAB CHEMISTRY METHOD 11/21/2024 11:06 AM [facility] ALT (SGPT) 18 10 - 60 unit/L LAB CHEMISTRY METHOD 11/21/2024 11:06 AM [facility] Alkaline Phosphatase 85 42 - 121 unit/L LAB CHEMISTRY METHOD 11/21/2024 11:06 AM [facility] Total Protein 6.5 6.0 - 8.0 g/dL LAB CHEMISTRY METHOD 11/21/2024 11:06 AM EDT [facility] Albumin 3.2 3.2 - 5.0 g/dL LAB CHEMISTRY METHOD 11/21/2024 11:06 AM [facility] Total Bilirubin 0.4 0.0 - 1.4 mg/dL LAB CHEMISTRY METHOD 11/21/2024 11:06 AM EDT [facility] Blood Venous blood specimen / Unknown Venipuncture / Unknown 11/21/2024 7:13 AM EDT 11/21/2024 9:07 AM EDT us Giovanni Coffey MD LAB BLOOD ORDERABLES Final Resul t [facility] [address] [place] [address], * (ABNORMAL) Complete blood count (11/21/2024 7:13 AM EDT) WBC 3.5(L) 4.8 - 10.8 K/mcL LAB HEMETOLOGY METHOD 11/21/2024 10:12 AM [facility] RBC 3.50(L) 3.80 - 4.80 M/mcL LAB HEMETOLOGY METHOD 11/21/2024 10:12 AM [facility] Hemoglobin 11.0(L) 11.5 - 16.0 g/dL LAB HEMETOLOGY METHOD 11/21/2024 10:12 AM [facility] Hematocrit 34.4(L) 35.0 - 47.0 % LAB HEMETOLOGY METHOD 11/21/2024 10:12 AM [facility] MCV 97.7 79.0 - 98.0 FL LAB HEMETOLOGY METHOD 11/21/2024 10:12 AM [facility] MCH 31.3 27.0 - 32.0 pcg LAB HEMETOLOGY METHOD 11/21/2024 10:12 AM EDT [facility] MCHC 32.0 32.0 - 37.0 g/dL LAB HEMETOLOGY METHOD 11/21/2024 10:12 AM EDT [facility] RDW 13.5 11.0 - 15.0 % LAB HEMETOLOGY METHOD 11/21/2024 10:12 AM EDT [facility] Platelets 197 130 - 400 K/mcL LAB HEMETOLOGY METHOD 11/21/2024 10:12 AM EDT [facility] MPV 10.8 7.0 - 11.0 FL LAB HEMETOLOGY METHOD 11/21/2024 10:12 AM EDT [facility] NRBC 0.0 <1.0 % LAB HEMETOLOGY METHOD 11/21/2024 10:12 AM EDT [facility] NRBC Absolute 0.00 <0.10 K/mcL LAB HEMETOLOGY METHOD 11/21/2024 10:12 AM EDT [facility] Blood Venous blood specimen / Unknown Venipuncture / Unknown 11/21/2024 7:13 AM EDT 11/21/2024 9:07 AM EDT us Giovanni Coffey MD LAB BLOOD ORDERABLES Final Resul t [facility] [address] [place] [address], * C-reactive protein (11/21/2024 7:13 AM EDT) C-Reactive Protein 0.48 <=0.50 mg/dL LAB CHEMISTRY METHOD 11/21/2024 10:55 AM EDT [facility] Blood Venous blood specimen / Unknown Venipuncture / Unknown 11/21/2024 7:13 AM EDT 11/21/2024 9:07 AM EDT us Giovanni Coffey MD LAB BLOOD ORDERABLES Final [facility]ul t [facility] [address] [place] [address], documented in this encounter Visit Diagnoses Diagnosis Essential (primary) hypertension Unspecified essential hypertension Hyperlipidemia, unspecified Unspecified osteoarthritis, unspecified site Encounter for other orthopedic aftercare documented in this encounter Care Teams Economic History Teacher Relationship Specialty Start Date End Date Carlita Villegas MD [address] [place] [phone] PCP - General 08/25/22 documented as of this encounter
--- OUTSIDE RECORDS SUMMARY | 2025-04-17 08:41 | XMS_ITS | Encounter Summary ---
Author Organization [facility] [place] Address [address] [place] [phone] Care Team Providers Care Profiler Operator Name Role Phone Carlita Villegas MD Primary Care Provider [phone] Encounter Details Date Type Department Care Team (Late st Contact Info) Description 10/17/2024 Lab Requisition [facility] - Main Lab 299 [facility] [place] [address] Giovanni Coffey MD [address] [place] [phone] Essential (primary) hypertension; Hyperlipidemia, unspecified Social [...] 04/23/2025 3:30 PM EDT Office Visit [facility] Hematology Oncology [address] [place] [address] Demetrius Parkinson MD [address] [place] [address] 05/27/2025 9:30 AM EDT Appointment [facility] Bone Density [address] [place] [address] 06/17/2025 10:00 AM EST Office Visit Endocrinology [address] [phone] Gisell Villegas PA [address] [place], [place] 07/31/2025 1:15 PM EST Office Visit Adult Medicine [place] - [address] [phone] Carlita Villegas MD [address] [place] [address] 08/26/2025 10:00 AM EST Office Visit Vascular Surgery [facility] [address] [place] [address] Priya Lopez MD [address] [place] [phone] documented as of this encounter Procedures Procedure [...] (ABNORMAL) C-reactive protein (10/17/2024 8:47 AM EDT) [facility] Signature C-Reactive Protein 5.68(H) <=0.50 mg/dL LAB CHEMISTRY METHOD 10/17/2024 11:41 AM EDT [facility] Blood Venous blood specimen / Unknown Venipuncture / Unknown 10/17/2024 8:47 AM EDT 10/17/2024 10:31 AM EDT us Giovanni Coffey MD LAB BLOOD ORDERABLES Final Resul t Performing Organization Address City/[facility]/ZIP Co de Phone Number [facility] [address] [place] [address], [place] [phone] * Lipid panel with reflex to direct LDL (10/17/2024 8:47 AM EDT) Cholesterol 173 0 - 200 mg/dL LAB CHEMISTRY METHOD 10/17/2024 11:[facility] Triglycerides 101 0 - 150 mg/dL LAB CHEMISTRY METHOD 10/17/2024 11:42 AM [facility] HDL 55 >=40 mg/dL LAB CHEMISTRY METHOD 10/17/2024 11:42 AM EDT [facility] LDL Calculated 98 0 - 100 mg/dL LAB CHEMISTRY METHOD 10/17/2024 11:42 AM T [facility] VLDL Cholesterol Waldemar 20.2 mg/dL LAB CHEMISTRY METHOD 10/17/2024 11:42 AM [facility] Non HDL Chol. (LDL+VLDL) 118 <145 mg/dL LAB CHEMISTRY METHOD 10/17/2024 11:42 AM EDT [facility] Chol/HDL Ratio 3.1 0.0 - 4.4 LAB CHEMISTRY METHOD 10/17/2024 11:42 AM T [facility] Blood Venous blood specimen / Unknown Venipuncture / Unknown 10/17/2024 8:47 AM EDT 10/17/2024 10:31 AM EDT us Giovanni Coffey MD LAB BLOOD ORDERABLES Final Resul t [facility] [address] [place] [address], * (ABNORMAL) Comprehensive metabolic panel (10/17/2024 8:47 AM EDT) Sodium 138 133 - 145 mmol/L LAB CHEMISTRY METHOD 10/17/2024 11:41 AM [facility] Potassium 3.8 3.5 - 5.5 mmol/L LAB CHEMISTRY METHOD 10/17/2024 11:41 AM [facility] Chloride 105 96 - 110 mmol/L LAB CHEMISTRY METHOD 10/17/2024 11:41 AM [facility] CO2 28 21 - 32 mmol/L LAB CHEMISTRY METHOD 10/17/2024 11:41 AM [facility] Anion Gap 5 3 - 11 LAB CHEMISTRY METHOD 10/17/2024 11:41 AM [facility] Glucose 128(H) 70 - 100 mg/dL LAB CHEMISTRY METHOD 10/17/2024 11:41 AM [facility] BUN 16 5 - 25 mg/dL LAB CHEMISTRY METHOD 10/17/2024 11:41 AM [facility] Creatinine 0.65 0.50 - 1.10 mg/dL LAB CHEMISTRY METHOD 10/17/2024 11:41 AM [facility] eGFR 89 >=60 mL/min/1. 73m2 LAB CHEMISTRY METHOD 10/17/2024 11:41 AM [facility] Comment:Calculation based on the Chronic Kidney Disease Epidemiology Collaboration (CKD-EPI) equation refit without adjustment for race. BUN/Creatinine Ratio 24.6 LAB CHEMISTRY METHOD 10/17/2024 11:41 AM [facility] Calcium 8.8 8.5 - 10.5 mg/dL LAB CHEMISTRY METHOD 10/17/2024 11:41 AM [facility] AST (SGOT) 65(H) 10 - 42 unit/L LAB CHEMISTRY METHOD 10/17/2024 11:41 AM EDT [facility] ALT (SGPT) 47 10 - 60 unit/L LAB CHEMISTRY METHOD 10/17/2024 11:41 AM EDT [facility] Alkaline Phosphatase 60 42 - 121 unit/L LAB CHEMISTRY METHOD 10/17/2024 11:41 AM [facility] Total Protein 6.2 6.0 - 8.0 g/dL LAB CHEMISTRY METHOD 10/17/2024 11:41 AM T [facility] Albumin 2.8(L) 3.2 - 5.0 g/dL LAB CHEMISTRY METHOD 10/17/2024 11:41 AM T [facility] Total Bilirubin 0.7 0.0 - 1.4 mg/dL LAB CHEMISTRY METHOD 10/17/2024 11:41 AM [facility] Blood Venous blood specimen / Unknown Venipuncture / Unknown 10/17/2024 8:47 AM EDT 10/17/2024 10:31 AM EDT us Giovanni Coffey MD LAB BLOOD ORDERABLES Final Resul t [facility] [address] [place] [address], * (ABNORMAL) Complete blood count (10/17/2024 8:47 AM EDT) WBC 5.1 4.8 - 10.8 K/mcL LAB HEMETOLOGY METHOD 10/17/2024 11:13 AM EDT [facility] RBC 3.70(L) 3.80 - 4.80 M/mcL LAB HEMETOLOGY METHOD 10/17/2024 11:13 AM EDT [facility] Hemoglobin 11.8 11.5 - 16.0 g/dL LAB HEMETOLOGY METHOD 10/17/2024 11:13 AM EDT [facility] Hematocrit 35.7 35.0 - 47.0 % LAB HEMETOLOGY METHOD 10/17/2024 11:13 AM EDT [facility] MCV 95.5 79.0 - 98.0 FL LAB HEMETOLOGY METHOD 10/17/2024 11:13 AM EDT [facility] MCH 31.6 27.0 - 32.0 pcg LAB HEMETOLOGY METHOD 10/17/2024 11:13 AM EDT [facility] MCHC 33.1 32.0 - 37.0 g/dL LAB HEMETOLOGY METHOD 10/17/2024 11:13 AM EDT [facility] RDW 13.1 11.0 - 15.0 % LAB HEMETOLOGY METHOD 10/17/2024 11:13 AM EDT [facility] Platelets 184 130 - 400 K/mcL LAB HEMETOLOGY METHOD 10/17/2024 11:13 AM EDT [facility] MPV 11.4(H) 7.0 - 11.0 FL LAB HEMETOLOGY METHOD 10/17/2024 11:13 AM EDT [facility] NRBC 0.0 <1.0 % LAB HEMETOLOGY METHOD 10/17/2024 11:13 AM [facility] NRBC Absolute 0.00 <0.10 K/mcL LAB HEMETOLOGY METHOD 10/17/2024 11:13 AM EDT [facility] Blood Venous blood specimen / Unknown Venipuncture / Unknown 10/17/2024 8:47 AM EDT 10/17/2024 10:31 AM EDT us Giovanni Coffey MD LAB BLOOD ORDERABLES Final Resul t [facility] [address] [place] [address], documented in this encounter Visit Diagnoses Diagnosis Essential (primary) hypertension Unspecified essential hypertension Hyperlipidemia, unspecified documented in this encounter Care Teams Profiler Operator Relationship Specialty Start Date End Date Carlita Villegas MD [address] [place] [phone] PCP - General 08/25/22 documented as of this encounter
--- OUTSIDE RECORDS SUMMARY | 2025-04-17 08:41 | XMS_ITS | Encounter Summary ---
Author Organization [facility] Address [address] [place] [phone] Care Team Providers Care 3D Specialist Name Role Phone Carlita Villegas MD Primary Care Provider [phone] Encounter Details Date Type Department Care Team (Late Contact Info) Description 11/13/2024 Lab Requisition [facility] - Main Lab 299 [facility] [place] [address] Giovanni Coffey MD [address] [place] [phone] Essential (primary) hypertension; Hyperlipidemia, unspecified; Unspecified [...] [facility] Hematology Oncology [address] [place] [address] Demetrius Parkinson MD [address] [place] [address] 05/27/2025 9:30 AM EDT Appointment [facility] Bone Density [address] [place] [address] 06/17/2025 10:00 AM EST Office Visit Endocrinology [address] [phone] Gisell Villegas PA [address] [place] [address] 07/31/2025 1:15 PM EST Office Visit Adult Medicine [place] - [address] [phone] Carlita Villegas MD [address] [place] [address] 08/26/2025 10:00 AM EST Office Visit Vascular Surgery - [place] [address] [place] [phone] Priya Lopez MD [address] [place] [address] documented as of this encounter Procedures Procedure [...] Comprehensive metabolic panel (11/14/2024 8:30 AM EDT) [facility] Sodium 134 133 - 145 mmol/L LAB CHEMISTRY METHOD 11/14/2024 11:15 AM [facility] Potassium 4.0 3.5 - 5.5 mmol/L LAB CHEMISTRY METHOD 11/14/2024 11:15 AM [facility] Chloride 99 96 - 110 mmol/L LAB CHEMISTRY METHOD 11/14/2024 11:15 AM [facility] CO2 30 21 - 32 mmol/L LAB CHEMISTRY METHOD 11/14/2024 11:15 AM [facility] Anion Gap 5 3 - 11 LAB CHEMISTRY METHOD 11/14/2024 11:15 AM [facility] Glucose 137(H) 70 - 100 mg/dL LAB CHEMISTRY METHOD 11/14/2024 11:15 AM [facility] BUN 15 5 - 25 mg/dL LAB CHEMISTRY METHOD 11/14/2024 11:15 AM [facility] Creatinine 0.69 0.50 - 1.10 mg/dL LAB CHEMISTRY METHOD 11/14/2024 11:15 AM [facility] eGFR 88 >=60 mL/min/1. 73m2 LAB CHEMISTRY METHOD 11/14/2024 11:15 AM [facility] Comment:Calculation based on the Chronic Kidney Disease Epidemiology Collaboration (CKD-EPI) equation refit without adjustment for race. BUN/Creatinine Ratio 21.7 LAB CHEMISTRY METHOD 11/14/2024 11:15 AM [facility] Calcium 9.3 8.5 - 10.5 mg/dL LAB CHEMISTRY METHOD 11/14/2024 11:15 AM [facility] AST (SGOT) 21 10 - 42 unit/L LAB CHEMISTRY METHOD 11/14/2024 11:15 AM [facility] ALT (SGPT) 27 10 - 60 unit/L LAB CHEMISTRY METHOD 11/14/2024 11:15 AM [facility] Alkaline Phosphatase 127(H) 42 - 121 unit/L LAB CHEMISTRY METHOD 11/14/2024 11:15 AM EDT [facility] Total Protein 7.3 6.0 - 8.0 g/dL LAB CHEMISTRY METHOD 11/14/2024 11:15 AM T [facility] Albumin 3.6 3.2 - 5.0 g/dL LAB CHEMISTRY METHOD 11/14/2024 11:15 AM [facility] Total Bilirubin 0.5 0.0 - 1.4 mg/dL LAB CHEMISTRY METHOD 11/14/2024 11:15 AM T [facility] Blood Venous blood specimen / Unknown Venipuncture / Unknown 11/14/2024 8:30 AM EDT 11/14/2024 9:57 AM EDT us Giovanni Coffey MD LAB BLOOD ORDERABLES Final Resul t [facility] [address] [place] [address], * (ABNORMAL) Complete blood count (11/14/2024 8:30 AM EDT) WBC 4.3(L) 4.8 - 10.8 K/mcL LAB HEMETOLOGY METHOD 11/14/2024 10:44 AM [facility] RBC 4.00 3.80 - 4.80 M/mcL LAB HEMETOLOGY METHOD 11/14/2024 10:44 AM [facility] Hemoglobin 12.4 11.5 - 16.0 g/dL LAB HEMETOLOGY METHOD 11/14/2024 10:44 AM [facility] Hematocrit 38.6 35.0 - 47.0 % LAB HEMETOLOGY METHOD 11/14/2024 10:44 AM [facility] MCV 97.5 79.0 - 98.0 FL LAB HEMETOLOGY METHOD 11/14/2024 10:44 AM [facility] MCH 31.3 27.0 - 32.0 pcg LAB HEMETOLOGY METHOD 11/14/2024 10:44 AM EDT [facility] MCHC 32.1 32.0 - 37.0 g/dL LAB HEMETOLOGY METHOD 11/14/2024 10:44 AM EDT [facility] RDW 13.5 11.0 - 15.0 % LAB HEMETOLOGY METHOD 11/14/2024 10:44 AM EDT [facility] Platelets 237 130 - 400 K/mcL LAB HEMETOLOGY METHOD 11/14/2024 10:44 AM EDT [facility] MPV 10.6 7.0 - 11.0 FL LAB HEMETOLOGY METHOD 11/14/2024 10:44 AM EDT [facility] NRBC 0.0 <1.0 % LAB HEMETOLOGY METHOD 11/14/2024 10:44 AM EDT [facility] NRBC Absolute 0.00 <0.10 K/mcL LAB HEMETOLOGY METHOD 11/14/2024 10:44 AM EDT [facility] Blood Venous blood specimen / Unknown Venipuncture / Unknown 11/14/2024 8:30 AM EDT 11/14/2024 9:57 AM EDT us Giovanni Coffey MD LAB BLOOD ORDERABLES Final Resul t [facility] [address] [place] [address], * C-reactive protein (11/14/2024 8:30 AM EDT) C-Reactive Protein 0.47 <=0.50 mg/dL LAB CHEMISTRY METHOD 11/14/2024 11:17 AM EDT [facility] Blood Venous blood specimen / Unknown Venipuncture / Unknown 11/14/2024 8:30 AM EDT 11/14/2024 9:57 AM EDT us Giovanni Coffey MD LAB BLOOD ORDERABLES [facility]ul [facility] [address] [place] [address], documented in this encounter Visit Diagnoses Diagnosis Essential (primary) hypertension Unspecified essential hypertension Hyperlipidemia, unspecified Unspecified osteoarthritis, unspecified site Encounter for other orthopedic aftercare documented in this encounter Care Teams 3D Specialist Relationship Specialty Start Date End Date Carlita Villegas MD [address] [place] [phone] PCP - General 08/25/22 documented as of this encounter
--- OUTSIDE RECORDS SUMMARY | 2025-04-17 08:41 | XMS_ITS | Encounter Summary ---
Author Organization [facility] Address [address] [place] [phone] Care Team Providers Care Learning Specialist Name Role Phone Carlita Villegas MD Primary Care Provider [phone] Encounter Details Date Type Department Care Team (Late st Contact Info) Description 12/04/2024 Lab Requisition [facility] - Main Lab 299 [facility] [place] [address] Giovanni Coffey MD [address] [place] [phone] Essential (primary) hypertension; Hyperlipidemia, unspecified; Encounter [...] Description 04/23/2025 3:30 PM EDT Office Visit [facility] Hematology Oncology [address] [place] [address] Demetrius Parkinson MD [address] [place] [address] 05/27/2025 9:30 AM EDT Appointment [facility] Bone Density [address] [place] [address] 06/17/2025 10:00 AM EST Office Visit Endocrinology [address] [phone] Gisell Villegas PA [address] [place], [place] 07/31/2025 1:15 PM EST Office Visit [place] - [address] [phone] Carliat Villegas MD [address] [place] [address] 08/26/2025 10:00 AM EST Office Visit Vascular Surgery - [place] [address] [place] [address] Priya Lopez MD [address] [place] [address] documented as of this encounter Procedures Procedure [...] ng/mL LAB CHEMISTRY METHOD 12/05/2024 1:57 PM [facility] Blood Venous blood specimen / Unknown Venipuncture / Unknown 12/05/2024 7:00 AM EDT 12/05/2024 10:24 AM EDT us Giovanni Coffey MD LAB BLOOD ORDERABLES Final Resul t [facility] [address] [place] [address], [place] [phone] * (ABNORMAL) Comprehensive metabolic panel (12/05/2024 7:00 AM EDT) [facility] Sodium 141 133 - 145 mmol/L LAB CHEMISTRY METHOD 12/05/2024 1:02 PM [facility] Potassium 3.9 3.5 - 5.5 mmol/L LAB CHEMISTRY METHOD 12/05/2024 1:02 PM [facility] Chloride 107 96 - 110 mmol/L LAB CHEMISTRY METHOD 12/05/2024 1:02 PM [facility] CO2 29 21 - 32 mmol/L LAB CHEMISTRY METHOD 12/05/2024 1:02 PM [facility] Anion Gap 5 3 - 11 LAB CHEMISTRY METHOD 12/05/2024 1:02 PM [facility] Glucose 86 70 - 100 mg/dL LAB CHEMISTRY METHOD 12/05/2024 1:02 PM [facility] BUN 11 5 - 25 mg/dL LAB CHEMISTRY METHOD 12/05/2024 1:02 PM [facility] Creatinine 0.57 0.50 - 1.10 mg/dL LAB CHEMISTRY METHOD 12/05/2024 1:02 PM [facility] eGFR 92 >=60 mL/min/1. 73m2 LAB CHEMISTRY METHOD 12/05/2024 1:02 PM [facility] Comment:Calculation based on the Chronic Kidney Disease Epidemiology Collaboration (CKD-EPI) equation refit without adjustment for race. BUN/Creatinine Ratio 19.3 LAB CHEMISTRY METHOD 12/05/2024 1:02 PM [facility] Calcium 8.4(L) 8.5 - 10.5 mg/dL LAB CHEMISTRY METHOD 12/05/2024 1:02 PM [facility] AST (SGOT) 14 10 - 42 unit/L LAB CHEMISTRY METHOD 12/05/2024 1:02 PM [facility] ALT (SGPT) 14 10 - 60 unit/L LAB CHEMISTRY METHOD 12/05/2024 1:02 PM [facility] Alkaline Phosphatase 61 42 - 121 unit/L LAB CHEMISTRY METHOD 12/05/2024 1:02 PM [facility] Total Protein 6.5 6.0 - 8.0 g/dL LAB CHEMISTRY METHOD 12/05/2024 1:02 PM [facility] Albumin 3.2 3.2 - 5.0 g/dL LAB CHEMISTRY METHOD 12/05/2024 1:02 PM [facility] Total Bilirubin 0.4 0.0 - 1.4 mg/dL LAB CHEMISTRY METHOD 12/05/2024 1:02 PM [facility] Blood Venous blood specimen / Unknown Venipuncture / Unknown 12/05/2024 7:00 AM EDT 12/05/2024 10:24 AM EDT us Giovanni Coffey MD LAB BLOOD ORDERABLES Final Resul t [facility] [address] [place] [address], [place] [phone] * (ABNORMAL) Complete blood count (12/05/2024 7:00 AM EDT) [facility] Signature WBC 3.4(L) 4.8 - 10.8 K/mcL LAB HEMETOLOGY METHOD 12/05/2024 11:30 AM [facility] RBC 3.60(L) 3.80 - 4.80 M/mcL LAB HEMETOLOGY METHOD 12/05/2024 11:30 AM [facility] Hemoglobin 11.1(L) 11.5 - 16.0 g/dL LAB HEMETOLOGY METHOD 12/05/2024 11:30 AM [facility] Hematocrit 34.7(L) 35.0 - 47.0 % LAB HEMETOLOGY METHOD 12/05/2024 11:30 AM [facility] MCV 96.9 79.0 - 98.0 FL LAB HEMETOLOGY METHOD 12/05/2024 11:30 AM [facility] MCH 31.0 27.0 - 32.0 pcg LAB HEMETOLOGY METHOD 12/05/2024 11:30 AM [facility] MCHC 32.0 32.0 - 37.0 g/dL LAB HEMETOLOGY METHOD 12/05/2024 11:30 AM [facility] RDW 13.5 11.0 - 15.0 % LAB HEMETOLOGY METHOD 12/05/2024 11:30 AM [facility] Platelets 203 130 - 400 K/mcL LAB HEMETOLOGY METHOD 12/05/2024 11:30 AM [facility] MPV 10.7 7.0 - 11.0 FL LAB HEMETOLOGY METHOD 12/05/2024 11:30 AM [facility] NRBC 0.0 <1.0 % LAB HEMETOLOGY METHOD 12/05/2024 11:30 AM [facility] NRBC Absolute 0.00 <0.10 K/mcL LAB HEMETOLOGY METHOD 12/05/2024 11:30 AM EDT [facility] Blood Venous blood specimen / Unknown Venipuncture / Unknown 12/05/2024 7:00 AM EDT 12/05/2024 10:24 AM EDT Giovanni Coffey MD LAB BLOOD ORDERABLES Final Resul t Performing Organization Address [facility]/ZIP Co de Phone Number [facility] [address] [place] [address], [place] [phone] * (ABNORMAL) C-reactive protein (12/05/2024 7:00 AM EDT) C-Reactive Protein 1.16(H) <=0.50 mg/dL LAB CHEMISTRY METHOD 12/05/2024 1:12 PM EDT [facility] Blood Venous blood specimen / Unknown Venipuncture / Unknown 12/05/2024 7:00 AM EDT 12/05/2024 10:24 AM EDT us Giovanni Coffey MD LAB BLOOD ORDERABLES Final Resul t Performing Organization Address [facility] de Phone Number [facility] [address] [place] [address], [place] [phone] documented in this encounter Visit Diagnoses Diagnosis Essential (primary) hypertension Unspecified essential hypertension Hyperlipidemia, unspecified Encounter for other orthopedic aftercare Vitamin D deficiency, unspecified documented in this encounter Care Teams Learning Specialist Relationship Specialty Start Date End Date Carlita Villegas MD [address] [place] [phone] PCP - General 08/25/22 documented as of this encounter
--- OUTSIDE RECORDS SUMMARY | 2025-04-17 08:41 | XMS_ITS | Encounter Summary ---
Author Organization [facility] Address [id number] [place] [phone] Care Team Providers Care Rubbish Collection Supervisor Name Role Phone Carlita Villegas MD Primary Care Provider Encounter Details Date Type Department Care Team (Late Contact Info) Description 10/30/2024 Lab Requisition [facility] - Main Lab [address] [facility] [employer] [place] [address] Giovanni Coffey MD [address] [place] [phone] Essential (primary) hypertension; Hyperlipidemia, unspecified; Unspecified [...] Description 04/23/2025 3:30 PM EDT Office Visit [facility] Hematology Oncology [address] [place] [address] Demetrius Parkinson MD [address] [place] [address] 05/27/2025 9:30 AM EDT Appointment [facility] Bone Density [address] [place] [phone] 06/17/2025 10:00 AM EST Office Visit Endocrinology [address] [phone] Gisell Villegas PA [address] [place] [address] 07/31/2025 1:15 PM EST Office Visit Adult Medicine [place] - [address] [phone] Carlita Villegas MD [address] [place] [address] 08/26/2025 10:00 AM EST Office Visit Vascular Surgery - [place] [address] [place] [phone] Priya Lopez MD [address] [place] [phone] documented as of this encounter Procedures Procedure [...] Comprehensive metabolic panel (10/31/2024 8:53 AM EDT) [facility] Sodium 138 133 - 145 mmol/L LAB CHEMISTRY METHOD 10/31/2024 12:31 PM [facility] Potassium 4.3 3.5 - 5.5 mmol/L LAB CHEMISTRY METHOD 10/31/2024 12:31 PM [facility] Chloride 104 96 - 110 mmol/L LAB CHEMISTRY METHOD 10/31/2024 12:31 PM [facility] CO2 30 21 - 32 mmol/L LAB CHEMISTRY METHOD 10/31/2024 12:31 PM [facility] Anion Gap 4 3 - 11 LAB CHEMISTRY METHOD 10/31/2024 12:31 PM [facility] Glucose 122(H) 70 - 100 mg/dL LAB CHEMISTRY METHOD 10/31/2024 12:31 PM [facility] BUN 17 5 - 25 mg/dL LAB CHEMISTRY METHOD 10/31/2024 12:31 PM [facility] Creatinine 0.75 0.50 - 1.10 mg/dL LAB CHEMISTRY METHOD 10/31/2024 12:31 PM [facility] eGFR 81 >=60 mL/min/1. 73m2 LAB CHEMISTRY METHOD 10/31/2024 12:31 PM [facility] Comment:Calculation based on the Chronic Kidney Disease Epidemiology Collaboration (CKD-EPI) equation refit without adjustment for race. BUN/Creatinine Ratio 22.7 LAB CHEMISTRY METHOD 10/31/2024 12:31 PM [facility] Calcium 9.2 8.5 - 10.5 mg/dL LAB CHEMISTRY METHOD 10/31/2024 12:31 PM [facility] AST (SGOT) 43(H) 10 - 42 unit/L LAB CHEMISTRY METHOD 10/31/2024 12:31 PM [facility] ALT (SGPT) 60 10 - 60 unit/L LAB CHEMISTRY METHOD 10/31/2024 12:31 PM [facility] Alkaline Phosphatase 193(H) 42 - 121 unit/L LAB CHEMISTRY METHOD 10/31/2024 12:31 PM EDT [facility] Total Protein 6.8 6.0 - 8.0 g/dL LAB CHEMISTRY METHOD 10/31/2024 12:31 PM EDT [facility] Albumin 3.3 3.2 - 5.0 g/dL LAB CHEMISTRY METHOD 10/31/2024 12:31 PM T [facility] Total Bilirubin 0.5 0.0 - 1.4 mg/dL LAB CHEMISTRY METHOD 10/31/2024 12:31 PM EDT [facility] Blood Venous blood specimen / Unknown Venipuncture / Unknown 10/31/2024 8:53 AM EDT 10/31/2024 10:21 AM EDT us Giovanni Coffey MD LAB BLOOD ORDERABLES Final Resul t [facility] [address] [place] [address], * (ABNORMAL) Complete blood count (10/31/2024 8:53 AM EDT) WBC 5.0 4.8 - 10.8 K/mcL LAB HEMETOLOGY METHOD 10/31/2024 11:12 AM [facility] RBC 3.70(L) 3.80 - 4.80 M/mcL LAB HEMETOLOGY METHOD 10/31/2024 11:12 AM T [facility] Hemoglobin 11.5 11.5 - 16.0 g/dL LAB HEMETOLOGY METHOD 10/31/2024 11:12 AM [facility] Hematocrit 35.8 35.0 - 47.0 % LAB HEMETOLOGY METHOD 10/31/2024 11:12 AM [facility] MCV 97.8 79.0 - 98.0 FL LAB HEMETOLOGY METHOD 10/31/2024 11:12 AM T [facility] MCH 31.4 27.0 - 32.0 pcg LAB HEMETOLOGY METHOD 10/31/2024 11:12 AM EDT [facility] MCHC 32.1 32.0 - 37.0 g/dL LAB HEMETOLOGY METHOD 10/31/2024 11:12 AM EDT [facility] RDW 13.3 11.0 - 15.0 % LAB HEMETOLOGY METHOD 10/31/2024 11:12 AM EDT [facility] Platelets 283 130 - 400 K/mcL LAB HEMETOLOGY METHOD 10/31/2024 11:12 AM EDT [facility] MPV 10.4 7.0 - 11.0 FL LAB HEMETOLOGY METHOD 10/31/2024 11:12 AM EDT [facility] NRBC 0.0 <1.0 % LAB HEMETOLOGY METHOD 10/31/2024 11:12 AM EDT [facility] NRBC Absolute 0.00 <0.10 K/mcL LAB HEMETOLOGY METHOD 10/31/2024 11:12 AM EDT [facility] Blood Venous blood specimen / Unknown Venipuncture / Unknown 10/31/2024 8:53 AM EDT 10/31/2024 10:21 AM EDT us Giovanni Coffey MD LAB BLOOD ORDERABLES Final Resul t [facility] [address] [place] [address], * (ABNORMAL) C-reactive protein (10/31/2024 8:53 AM EDT) C-Reactive Protein 1.02(H) <=0.50 mg/dL LAB CHEMISTRY METHOD 10/31/2024 12:33 PM EDT [facility] Blood Venous blood specimen / Unknown Venipuncture / Unknown 10/31/2024 8:53 AM EDT 10/31/2024 10:21 AM EDT us Giovanni Coffey MD LAB BLOOD ORDERABLES Final Resul t [facility] [address] [place] [address], documented in this encounter Visit Diagnoses Diagnosis Essential (primary) hypertension Unspecified essential hypertension Hyperlipidemia, unspecified Unspecified osteoarthritis, unspecified site Encounter for other orthopedic aftercare documented in this encounter Care Teams Rubbish Collection Supervisor Relationship Specialty Start Date End Date Carlita Villegas MD [address] [place] [phone] PCP - General 08/25/22 documented as of this encounter
--- OUTSIDE RECORDS SUMMARY | 2025-04-17 08:41 | XMS_ITS | Encounter Summary ---
Author Organization [facility] Address [id number] [place] [phone] Care Team Providers Care Fare Collector Name Role Phone Carlita Villegas MD Primary Care Provider [phone] Encounter Details Date Type Department Care Team (Late Contact Info) Description 11/27/2024 Lab Requisition [facility] - Main Lab [address] [facility] [employer] [place] [address] Giovanni Coffey MD [address] [place] [phone] Essential (primary) hypertension; Hyperlipidemia, unspecified; Unspecified [...] 04/23/2025 3:30 PM EDT Office Visit [facility] Hematology Oncology [address] [place] [address] Demetrius Parkinson MD [address] [place] [address] 05/27/2025 9:[address] [facility] Bone Density [address] [place] [address] 06/17/2025 10:00 AM EST Office Visit Endocrinology [address] [phone] Gisell Villegas PA [address] [place] [address] 07/31/2025 1:15 PM EST Office Visit Adult Medicine [place] - [address] [phone] Carlita Villegas MD [address] [place] [address] 08/26/2025 10:00 AM EST Office Visit Vascular Surgery - [place] [address] [place] [phone] Priya Lopez MD [address] [place] [phone] documented as of this encounter Procedures Procedure [...] Comprehensive metabolic panel (11/28/2024 7:25 AM EDT) [facility] Sodium 140 133 - 145 mmol/L LAB CHEMISTRY METHOD 11/28/2024 11:25 AM [facility] Potassium 4.4 3.5 - 5.5 mmol/L LAB CHEMISTRY METHOD 11/28/2024 11:25 AM [facility] Chloride 108 96 - 110 mmol/L LAB CHEMISTRY METHOD 11/28/2024 11:25 AM [facility] CO2 29 21 - 32 mmol/L LAB CHEMISTRY METHOD 11/28/2024 11:25 AM [facility] Anion Gap 3 3 - 11 LAB CHEMISTRY METHOD 11/28/2024 11:25 AM [facility] Glucose 91 70 - 100 mg/dL LAB CHEMISTRY METHOD 11/28/2024 11:25 AM [facility] BUN 14 5 - 25 mg/dL LAB CHEMISTRY METHOD 11/28/2024 11:25 AM [facility] Creatinine 0.67 0.50 - 1.10 mg/dL LAB CHEMISTRY METHOD 11/28/2024 11:25 AM [facility] eGFR 88 >=60 mL/min/1. 73m2 LAB CHEMISTRY METHOD 11/28/2024 11:25 AM [facility] Comment:Calculation based on the Chronic Kidney Disease Epidemiology Collaboration (CKD-EPI) equation refit without adjustment for race. BUN/Creatinine Ratio 20.9 LAB CHEMISTRY METHOD 11/28/2024 11:25 AM [facility] Calcium 8.4(L) 8.5 - 10.5 mg/dL LAB CHEMISTRY METHOD 11/28/2024 11:25 AM [facility] AST (SGOT) 14 10 - 42 unit/L LAB CHEMISTRY METHOD 11/28/2024 11:25 AM [facility] ALT (SGPT) 14 10 - 60 unit/L LAB CHEMISTRY METHOD 11/28/2024 11:25 AM [facility] Alkaline Phosphatase 74 42 - 121 unit/L LAB CHEMISTRY METHOD 11/28/2024 11:25 AM EDT [facility] Total Protein 6.5 6.0 - 8.0 g/dL LAB CHEMISTRY METHOD 11/28/2024 11:25 AM EDT [facility] Albumin 3.2 3.2 - 5.0 g/dL LAB CHEMISTRY METHOD 11/28/2024 11:25 AM [facility] Total Bilirubin 0.4 0.0 - 1.4 mg/dL LAB CHEMISTRY METHOD 11/28/2024 11:25 AM T [facility] Blood Venous blood specimen / Unknown Venipuncture / Unknown 11/28/2024 7:25 AM EDT 11/28/2024 8:51 AM EDT us Giovanni Coffey MD LAB BLOOD ORDERABLES Final Resul t [facility] [address] [place] [address], [place] [phone] * (ABNORMAL) Complete blood count (11/28/2024 7:25 AM EDT) WBC 3.8(L) 4.8 - 10.8 K/mcL LAB HEMETOLOGY METHOD 11/28/2024 9:16 AM [facility] RBC 3.60(L) 3.80 - 4.80 M/mcL LAB HEMETOLOGY METHOD 11/28/2024 9:16 AM [facility] Hemoglobin 11.3(L) 11.5 - 16.0 g/dL LAB HEMETOLOGY METHOD 11/28/2024 9:16 AM [facility] Hematocrit 34.5(L) 35.0 - 47.0 % LAB HEMETOLOGY METHOD 11/28/2024 9:16 AM [facility] MCV 95.6 79.0 - 98.0 FL LAB HEMETOLOGY METHOD 11/28/2024 9:16 AM [facility] MCH 31.3 27.0 - 32.0 pcg LAB HEMETOLOGY METHOD 11/28/2024 9:16 AM EDT [facility] MCHC 32.8 32.0 - 37.0 g/dL LAB HEMETOLOGY METHOD 11/28/2024 9:16 AM EDT [facility] RDW 13.6 11.0 - 15.0 % LAB HEMETOLOGY METHOD 11/28/2024 9:16 AM EDT [facility] Platelets 212 130 - 400 K/mcL LAB HEMETOLOGY METHOD 11/28/2024 9:16 AM EDT [facility] MPV 10.5 7.0 - 11.0 FL LAB HEMETOLOGY METHOD 11/28/2024 9:16 AM EDT [facility] NRBC 0.0 <1.0 % LAB HEMETOLOGY METHOD 11/28/2024 9:16 AM EDT [facility] NRBC Absolute 0.00 <0.10 K/mcL LAB HEMETOLOGY METHOD 11/28/2024 9:16 AM EDT [facility] Blood Venous blood specimen / Unknown Venipuncture / Unknown 11/28/2024 7:25 AM EDT 11/28/2024 8:51 AM EDT us Giovanni Coffey MD LAB BLOOD ORDERABLES Final Resul t [facility] [address] [place] [address], * C-reactive protein (11/28/2024 7:25 AM EDT) C-Reactive Protein <0.29 <=0.50 mg/dL LAB CHEMISTRY METHOD 11/28/2024 9:55 AM EDT [facility] Blood Venous blood specimen / Unknown Venipuncture / Unknown 11/28/2024 7:25 AM EDT 11/28/2024 8:51 AM EDT us Giovanni Coffey MD LAB BLOOD ORDERABLES Final Resul t [facility] [address] [place] [address], documented in this encounter Visit Diagnoses Diagnosis Essential (primary) hypertension Unspecified essential hypertension Hyperlipidemia, unspecified Unspecified osteoarthritis, unspecified site Encounter for other orthopedic aftercare documented in this encounter Care Teams Fare Collector Relationship Specialty Start Date End Date Carlita Villegas MD [address] [place] [phone] PCP - General 08/25/22 documented as of this encounter
--- OUTSIDE RECORDS SUMMARY | 2025-04-17 08:42 | XMS_ITS | Clinical Summary ---
Author Organization [facility] Address [address] [place] [address] Phone Care Team Providers Care Sql Consultant Name Role Phone Carlita Villegas MD Primary Care Provider [phone] Allergies Active Allergy Reactions Criticality Noted Date Comments Azithromycin Nausea And Vomiting 01/20/2011 Ciprofloxacin Hcl Headache,Nausea And Vomiting 08/15/2012 Doxycycline Nausea And Vomiting 04/07/2014 Sulfa (Sulfonamide Antibiotics) 01/16/2006 Medications acetaminophen (TYLENOL) 325 mg tablet Take 2 Tablets by mouth every 6 hours as needed. Active calcium carbonate (CALCIUM ORAL) Take by mouth. Active MULTIVITAMIN ORAL None Entered Active denosumab (PROLIA) 60 mg/mL syringe syringe Inject 1 mL (60 mg total) under the skin 1 (one) time for 1 dose. 1 mL 06/17/20 24 Active losartan (COZAAR) 50 mg tablet Take 1 tablet (50 mg total) by mouth 1 (one) time each day. 90 tablet 04/09/20 25 Active senna (SENOKOT) 8.6 mg tablet Take 2 tablets (17.2 mg total) by mouth 2 (two) times a day. Active pravastatin (PRAVACHOL) 10 mg tablet Take 1 tablet (10 mg total) by mouth 1 (one) time each day. 90 tablet 1 04/15/20 25 Active cetirizine HCl (CETIRIZINE ORAL) Take by mouth. 025 Discontinued( erapy completed) DOCUSATE SODIUM ORAL Take by mouth as needed. 025 Discontinued( erapy completed) pravastatin (PRAVACHOL) 10 mg tablet Take 1 tablet (10 mg total) by mouth 1 (one) time each day. 90 tablet 1 08/07/19 25 025 Discontinued(Re order) losartan (COZAAR) 50 mg tablet Take 1 tablet (50 mg total) by mouth 1 (one) time each day. 01/24/20 25 025 Discontinued(Re order) apixaban (Eliquis) 2.5 mg tablet Take 1 tablet (2.5 mg total) by mouth 2 (two) times a day. 180 tablet 01/31/20 25 025 Discontinued Active Problems Problem Noted Date Diagnosed Date Fracture of radius 10/17/2024 Unspecified fracture of righ t pubis, subsequent encounter for fracture with routine [...] varicose veins 02/14/2012 Osteoporosis 12/30/2010 Headache 03/05/2007 Actinic keratosis Overview (04/15/2025): DX:Actinic keratosis; COMMENT: Actinic keratosis Resolved Problems Problem Noted Date Diagnosed Date Resolved Date Acute deep vein thrombosis ( DVT) of proximal vein of right lower extremity ([facility]24, [facility] V28) 01/30/2025 04/15/2025 Encounters Date Type Department Care Team Description 04/15/2025 8:30 AM EDT Office Visit Adult Medicine [address] [phone] Carlita Villegas MD Primary hypertension (Primary Dx); Actinic keratosis; Mixed hyperlipidemia; Ascending aorta dilatation ([facility] V24) 04/02/2025 1:00 PM EDT Office Visit [facility] Hematology Oncology [address] [place] [address] [phone] Demetrius Parkinson MD IgM kappa monoclonal gammopathy 03/30/2025 Telephone Adult Medicine [address] [phone] JasonRupert calderón LPN 03/24/2025 Telephone Adult Medicine [address] [phone] Carlita Villegas MD 03/23/2025 Telephone Adult Medicine [address] [phone] Carlita Villegas MD 03/17/2025 Telephone Adult Medicine [address] [phone] Roshni Madden MA 03/17/2025 Telephone Adult Medicine [address] [phone] Roshni Madden MA 03/17/2025 Telephone Adult Medicine [address] [phone] Roshni Madden MA 02/09/2025 12:37 PM EDT - 02/09/2025 11:59 PM EDT Hospital Encounter Radiology Department - [address] [phone] Acute deep vein thrombosis (DVT) of proximal vein of right lower extremity ([facility] V24, [facility] V28) Discharge Disposition: Home or Self Care 01/30/2025 12:30 PM EDT Office Visit Adult [address] [phone] Carlita Villegas MD Hospital discharge follow-up (Primary Dx); Unspecified fracture of right pubis, subsequent encounter for fracture with routine healing; Type I or II open displaced comminuted fracture of shaft of right radius with routine healing, subsequent encounter; Acute deep vein thrombosis (DVT) of proximal vein of right lower extremity ([facility] V24, [facility] V28); Primary hypertension; Mixed hyperlipidemia; Age-related osteoporosis without current pathological fracture 01/30/2025 Telephone Adult Medicine [address] [phone] Carlita Villegas MD 01/23/2025 Telephone Adult [address] [phone] Carlita Villegas MD from Last 3 Months [...] COMMENT: bleeding COLONOSCOPY W/ BIOPSIES 04/07/2010 PROCEDURE: ID COLONOSCOPY STOMA W/BIOPSY SINGLE/MULTIPLE; COMMENT: Up to cecum, good preparation, 15mm polyp at ascending partially removed:tubular adenoma, transverse colon polyp removed.:ulcerated inflammatory polyp COLONOSCOPY 03/20/2012 PROCEDURE: ID COLONOSCOPY FLX DX W/COLLJ SPEC WHEN PFRMD; COMMENT: normal to mid right colon, very difficult exam. 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 Varicose veins 02/14/2012 DX:Varicose vein s Actinic keratosis 05/16/2013 DX:Actinic ker atosis; COMMENT: Actinic keratosis Family History Medical History Relation Name Comments [...] Mass Index 21.58 04/15/2025 8:33 AM EDT Plan of Treatment Upcoming Encounters Date Type Department Care Team (Late st Contact Info) Description 04/23/2025 3:30 PM EDT Office Visit [facility] Hematology Oncology [address] [place] [address] Demetrius Parkinson MD [address] [place] [address] 05/27/2025 9:30 AM EDT Appointment [facility] Bone Density [address] [place] [address] 06/17/2025 10:00 AM EST Office Visit Endocrinology [address] [phone] Gisell Villegas PA [address] [place] [address] 07/31/2025 1:15 PM EST Office Visit Adult Medicine [place] - [address] [phone] Carlita Villegas MD [address] [place] [address] 08/26/2025 10:00 AM EST Office Visit Vascular Surgery - [place] [address] [facility] [address] [place] [address] Priya Lopez MD [address] [place] [phone] Health Maintenance Due Date Last Done Comments RSV Immunization Adult Patients (1 - 1-dose 75+ series) 2019 Zoster Vaccines (2 of 2) 07/26/2021 05/31/2021, 03/06 Falls Risk Assessment 07/15/2022 Medicare Annual Wellness Visit 07/15/2022 Social Influencers of Health Screening 07/15/2022 Depression Screening 08/06/2024 COVID-19 Vaccine (6 - Mixed Product risk season) 2025 05/14/2024, 06/01/2022, 06/06/2021, Additional history exists Influenza Vaccine (#1) 2025 , 05/01/2024, 08/31/2023, Additional history exists Hypertension/CHF/CAD Annual BMP Blood Test 04/02/2026 04/02/2025, 01/30/2025, 12/12/2024, Additional history exists Colorectal Cancer Screening: Colonoscopy 04/15/2026 05/08/2017 Postponed from 07/15/2022 (Patient Refused) DTaP,Tdap,and Td Vaccines (2 - Td or Tdap) 02/15/2028 02/14/2018 Cholesterol Screening (Lipid Panel) 11/17/2029 11/17/2024, 10/17/2024, 06/03/2024, Additional history exists Osteoporosis Screening (Bone Density Screening) 03/22/2033 03/22/2023, 06/14/2020, 05/06/2018 Pneumococcal Vaccine: 50+ Years Completed 11/10/2021, 09/01/2015, 06/01/2014 HIB Vaccines Aged Out No longer eligi [...] Procedure Name Priority Date/Time Associated Diagnosis Comments CBC WITH AUTO DIFFERENTIAL Routine 04/02/2025 1:30 PM EDT IgM kappa monoclonal gammopathy LACTATE DEHYDROGENASE Routine 04/02/2025 1:30 PM EDT IgM kappa monoclonal gammopathy VISCOSITY, SERUM Routine 04/02/2025 1:30 PM EDT IgM kappa monoclonal gammopathy KAPPA-LAMBDA QUANTITATIVE FREE LIGHT CHAINS Routine 04/02/2025 1:30 PM EDT IgM kappa monoclonal gammopathy COMPREHENSIVE METABOLIC PANEL Routine 04/02/2025 1:30 PM EDT IgM kappa monoclonal gammopathy CBC AND DIFFERENTIAL Routine 04/02/2025 1:30 PM EDT IgM kappa monoclonal gammopathy VAS US DUPLEX LOWER EXT VENOUS RIGHT Routine 02/09/2025 1:06 PM EDT Acute deep vein thrombosis (DVT) of proximal vein of right lower extremity (CMS/HCC V24, CMS/HCC V28) ID PROTEIN ELECTROPHORETIC FRACTIONATION & QUANTITATION SERUM Routine 01/30/2025 1:29 PM EDT Age related osteoporosis, unspecified pathological fracture presence ID IMMUNOFIXATION ELECTROPHORESIS SERUM Routine 01/30/2025 1:29 PM EDT Acute deep vein thrombosis (DVT) of proximal vein of right lower extremity (CMS/HCC V24, CMS/HCC V28) Age related osteoporosis, unspecified pathological fracture presence IMMUNOGLOBULINS IGG, IGA, IGM Routine 01/30/2025 1:29 PM EDT Acute deep vein thrombosis (DVT) of proximal vein of right lower extremity (CMS/HCC V24, CMS/HCC V28) Age related osteoporosis, unspecified pathological fracture presence IMMUNOFIXATION ELECTROPHORESIS Routine 01/30/2025 1:29 PM EDT Acute deep vein thrombosis (DVT) of proximal vein of right lower extremity (CMS/HCC V24, CMS/HCC V28) Age related osteoporosis, unspecified pathological fracture presence IMMUNOFIXATION ELECTROPHORESIS Routine 01/30/2025 1:29 PM EDT Acute deep vein thrombosis (DVT) of proximal vein of right lower extremity (CMS/HCC V24, CMS/HCC V28) Age related osteoporosis, unspecified pathological fracture presence PROTEIN, TOTAL Routine 01/30/2025 1:29 PM EDT Age related osteoporosis, unspecified pathological fracture presence CBC WITH AUTO DIFFERENTIAL Routine 01/30/2025 1:29 PM EDT Acute deep vein thrombosis (DVT) of proximal vein of right lower extremity (CMS/HCC V24, CMS/HCC V28) PROTEIN ELECTROPHORESIS, SERUM Routine 01/30/2025 1:29 PM EDT Age related osteoporosis, unspecified pathological fracture presence PHOSPHORUS Routine 01/30/2025 1:29 PM EDT Age related osteoporosis, unspecified pathological fracture presence PARATHYROID HORMONE INTACT Routine 01/30/2025 1:29 PM EDT Age related osteoporosis, unspecified pathological fracture presence VITAMIN D 25 HYDROXY Routine 01/30/2025 1:29 PM EDT Age related osteoporosis, unspecified pathological fracture presence CBC AND DIFFERENTIAL Routine 01/30/2025 1:29 PM EDT Acute deep vein thrombosis (DVT) of proximal vein of right lower extremity (CMS/HCC V24, CMS/HCC V28) COMPREHENSIVE METABOLIC PANEL Routine 01/30/2025 1:29 PM EDT Acute deep vein thrombosis (DVT) of proximal vein of right lower extremity (CMS/HCC V24, CMS/HCC V28) LIPID PANEL WITH REFLEX TO DIRECT LDL Routine 11/17/2024 5:21 AM EDT Essential (primary) hypertension Hyperlipidemia, unspecified DXA BONE DENSITY STUDY 1+ SITS AXIAL SKEL Routine 03/22/2023 10:49 AM EDT Age-related osteoporosis without current pathological fracture HM COLONOSCOPY Routine 05/08/2017 from Last 3 Months or Most Recently Relevant to Health Maintenance Results * (ABNORMAL) [place]-lambda free light chains, quantitative (04/02/2025 1:30 PM EDT) [place] Free Light Chain 2.00(H) 0.33 - 1.94 mg/dL 04/07/2025 3:57 PM EDT [facility] Lambda Free Light Chain 1.56 0.57 - 2.63 mg/dL 04/07/2025 3:57 PM EDT [facility] [place]/Lambda FLC Ratio 1.28 0.26 - 1.65 04/07/2025 3:57 PM EDT [facility] Comment: Test performed at [facility], [address], [place] [address] Chantelle Gray MD, PhD - [employer] Blood Venous blood specimen / Unknown Venipuncture / Unknown 04/02/2025 1:30 PM EDT 04/02/2025 4:36 PM EDT us Demetrius Parkinson MD LAB BLOOD ORDERABLES Final R esult [facility] [address] [place] [address] * CBC auto differential (04/02/2025 1:30 PM EDT) Only the most recent of2 resultswithin the time period is included. [facility] Signature WBC 4.9 4.8 - 10.8 K/mcL LAB HEMETOLOGY METHOD 04/02/2025 4:[address] [facility] RBC 3.90 3.80 - 4.80 M/mcL LAB HEMETOLOGY METHOD 04/02/2025 4:[address] [facility] Hemoglobin 12.2 11.5 - 16.0 g/dL LAB HEMETOLOGY METHOD 04/02/2025 4:[address] [facility] Hematocrit 38.0 35.0 - 47.0 % LAB HEMETOLOGY METHOD 04/02/2025 4:[address] [facility] MCV 97.9 79.0 - 98.0 FL LAB HEMETOLOGY METHOD 04/02/2025 4:[address] [facility] MCH 31.4 27.0 - 32.0 pcg LAB HEMETOLOGY METHOD 04/02/2025 4:[address] [facility] MCHC 32.1 32.0 - 37.0 g/dL LAB HEMETOLOGY [facility] 04/02[facility]25 [facility] RDW 12.6 11.0 - 15.0 % LAB HEMETOLOGY METHOD 04/02/2025 4:[address] [facility] Platelets 204 130 - 400 K/mcL LAB HEMETOLOGY METHOD 04/02/2025 4:[address] [facility] MPV 10.8 7.0 - 11.0 FL LAB HEMETOLOGY METHOD 04/02/2025 4:[address] [facility] NRBC 0.0 <1.0 % LAB HEMETOLOGY METHOD 04/02/2025 4:[address] [facility] NRBC Absolute 0.00 <0.10 K/mcL LAB HEMETOLOGY METHOD 04/02/2025 4:[address] [facility] Neutrophils Relative 64.5 % LAB HEMETOLOGY METHOD 04/02/2025 4:[address] [facility] Lymphocytes Relative 26.0 % LAB HEMETOLOGY METHOD 04/02/2025 4:[address] [facility] Monocytes Relative 7.1 % LAB HEMETOLOGY METHOD 04/02/2025 4:[address] [facility] Eosinophils Relative 1.6 % LAB HEMETOLOGY METHOD 04/02/2025 4:[address] [facility] Basophils Relative 0.4 % LAB HEMETOLOGY METHOD 04/02[facility]2025 4:[facility] Immature Granulocytes Relative 0.4 % LAB HEMETOLOGY METHOD 04/02/2025 4:[address] [facility] Neutrophils Absolute 3.17 1.50 - 7.00 K/mcL LAB HEMETOLOGY METHOD 04/02/2025 4:[address] [facility] Lymphocytes Absolute 1.28 1.00 - 5.00 K/mcL LAB HEMETOLOGY METHOD 04/02/2025 4:[address] [facility] Monocytes Absolute 0.35 0.20 - 1.00 K/mcL LAB HEMETOLOGY METHOD 04/02/2025 4:[address] [facility] Eosinophils Absolute 0.08 0.00 - 0.50 K/mcL LAB HEMETOLOGY METHOD 04/02/2025 4:[address] [facility] Basophils Absolute 0.02 0.00 - 0.20 K/mcL LAB HEMETOLOGY METHOD 04/02/2025 4:[address] [facility] Immature Granulocytes Absolute 0.02 0.00 - 0.03 K/mcL LAB HEMETOLOGY METHOD 04/02/2025 4:[address] [facility] Blood Venous blood specimen / Unknown Venipuncture / Unknown 04/02/2025 1:30 PM EDT 04/02/2025 4:36 PM EDT Demetrius Parkinson MD LAB BLOOD ORDERABLES Final R esult Performing Organization Address City/[facility]/ZIP Co de Phone Number [facility] [address] [place] [address], [place] [phone] * Viscosity, serum (04/02/2025 1:30 PM EDT) Viscosity Serum 1.7 1.5 - 1.9 4:38 AM EDT [facility] Comment: UNITS OF MEASURE: Relative to H2O This test was developed and its analytical performance characteristics have been determined by [facility]. It has not been cleared or approved by the FDA. This assay has been validated pursuant to the CLIA regulations and is used for clinical purposes. Test Performed at: [facility] [address] [phone] Ryann Leung MD, PhD, MIKE Blood Venous blood specimen / Unknown Venipuncture / Unknown 04/02/2025 1:30 PM EDT 04/02/2025 4:36 PM EDT Demetrius Parkinson MD LAB BLOOD ORDERABLES Final R esult [facility] [address] [place] [address] * Lactate dehydrogenase (04/02/2025 1:30 PM EDT) LDH 169 120 - 246 unit/L LAB CHEMISTRY METHOD 04/02/2025 5:[address] [facility] Blood Venous blood specimen / Unknown Venipuncture / Unknown 04/02/2025 1:30 PM EDT 04/02/2025 4:36 PM EDT us Demetrius Parkinson MD LAB BLOOD ORDERABLES Final R esult [facility] [address] [place] [address], [place] [phone] * Comprehensive metabolic panel (04/02/2025 1:30 PM EDT) Only the most recent of2 resultswithin the time period is included. Sodium 137 133 - 145 mmol/L LAB CHEMISTRY METHOD 04/02/2025 5:[address] [facility] Potassium 4.3 3.5 - 5.5 mmol/L LAB CHEMISTRY METHOD 04/02/2025 5:[address] [facility] Chloride 104 96 - 110 mmol/L LAB CHEMISTRY METHOD 04/02/2025 5:[address] [facility] CO2 29 21 - 32 mmol/L LAB CHEMISTRY METHOD 04/02/2025 5:[address] [facility] Anion Gap 4 3 - 11 LAB CHEMISTRY METHOD 04/02/2025 5:[address] [facility] Glucose 80 70 - 100 mg/dL LAB CHEMISTRY METHOD 04/02/2025 5:[address] [facility] BUN 21 5 - 25 mg/dL LAB CHEMISTRY METHOD 04/02/2025 5:[address] [facility] Creatinine 0.87 0.50 - 1.10 mg/dL LAB CHEMISTRY METHOD 04/02/2025 5:[address] [facility] eGFR 67 >=60 mL/min/1. 73m2 LAB CHEMISTRY METHOD 04/02/2025 5:[address] [facility] Comment:Calculation based on the Chronic Kidney Disease Epidemiology Collaboration (CKD-EPI) equation refit without adjustment for race. BUN/Creatinine Ratio 24.1 LAB CHEMISTRY METHOD 04/02[facility]2025 5:[facility] Calcium 9.4 8.5 - 10.5 mg/dL LAB CHEMISTRY METHOD 04/02/2025 5:[address] [facility] AST (SGOT) 14 10 - 42 unit/L LAB CHEMISTRY METHOD 04/02/2025 5:[address] [facility] ALT (SGPT) 21 10 - 60 unit/L LAB CHEMISTRY METHOD 04/02/2025 5:[address] [facility] Alkaline Phosphatase 53 42 - 121 unit/L LAB CHEMISTRY METHOD 04/02/2025 5:[address] [facility] Total Protein 7.3 6.0 - 8.0 g/dL LAB CHEMISTRY METHOD 04/02/2025 5:[address] [facility] Albumin 4.0 3.2 - 5.0 g/dL LAB CHEMISTRY METHOD 04/02/2025 5:[address] [facility] Total Bilirubin 0.3 0.0 - 1.4 mg/dL LAB CHEMISTRY METHOD 04/02/2025 5:[address] [facility] Blood Venous blood specimen / Unknown Venipuncture / Unknown 04/02/2025 1:30 PM EDT 04/02/2025 4:36 PM EDT Demetrius Parkinson MD LAB BLOOD ORDERABLES Final R esult [facility] [address] [place] [address], * Vascular US duplex lower extremity venous right (02/09/2025 1:06 PM EDT) Anatomical Region Laterality Modality Vascular, Abdomen Ultrasound 02/10/2025 9:46 AM EDT Impressions 02/10/2025 9:48 AM EDT Impression: Normal right lower extremity deep venous Doppler examination. No evidence of DVT. -------- FINAL REPORT -------- Dictated By: Maria Del Rosario Ellis Dictated Date: 02/10/2025 09:46 ET Assigned Physician: Maria Del Rosario Ellis Reviewed and Electronically Signed By: Maria Del Rosario Ellis Signed Date: 02/10/2025 09:48 ET Workstation ID: [id number] Transcribed By: Self Edit Transcribed Date: 02/10/2025 09:46 ET Narrative 02/10/2025 9:48 AM EDT History: DVT history. History of right DVT. Right lower extremity deep venous Doppler examination: Real-time, duplex and color Doppler examination of the deep venous system of the right lower extremity was performed, including the common femoral, greater saphenous, profunda femora takeoff, femoral and popliteal venous segments, as well as the paired posterior tibial, peroneal and gastrocnemius veins in the calf. Color filling appears normal. There are no appreciable filling defects. Compression and augmentation were normal throughout. No abnormal fluid collections are demonstrated. Procedure Note Maria Del Rosario Ellis MD - 02/10/2025 History: DVT history. History of right DVT. Right lower extremity deep venous Doppler examination: Real-time, duplexand color Doppler examination of the deep venous system of the right lowerextremity was performed, including the common femoral, greater saphenous,profunda femora takeoff, femoral and popliteal venous segments, as well asthe paired posterior tibial, peroneal and gastrocnemius veins in the calf. Color filling appears normal. There are no appreciable filling defects. Compression and augmentation were normal throughout. No abnormal fluid collections are demonstrated. IMPRESSION: Impression: Normal right lower extremity deep venous Doppler examination.No evidence of DVT. -------- FINAL REPORT -------- Dictated By: Maria Del Rosario Ellis Dictated Date: 02/10/2025 09:46 ET Assigned Physician: Maria Del Rosario Ellis Reviewed and Electronically Signed By: Maria Del Rosario Ellis Signed Date: 02/10/2025 09:48 ET Workstation ID: [id number] Transcribed By: Self Edit Transcribed Date: 02/10/2025 09:46 ET us Carlita Villegas MD CV VASCULAR PROCEDURES Final Res ult * Pathologist Review Immunofixation (01/30/2025 1:29 PM EDT) Pathologist Interpretation Zoya Aparicio MD 02/04/2025 1:[address] [facility] Blood Venous blood specimen / Unknown Venipuncture / Unknown 01/30/2025 1:29 PM EDT 01/30/2025 1:29 PM EDT Carlita Villegas MD LAB BLOOD ORDERABLES Final Resul t [facility] [address] [place] [address], [place] [phone] * PATHOLOGIST REVIEW PROTEIN ELECTROPHORESIS (01/30/2025 1:29 PM EDT) Pathologist Interpretation Zoya Aparicio MD 02/04/2025 1:[address] [facility] Blood Venous blood specimen / Unknown Venipuncture / Unknown 01/30/2025 1:29 PM EDT 01/30/2025 1:29 PM EDT us Gisell PRADHAN LAB BLOOD ORDERABLES Final Resul t Performing Organization Address [facility] de Phone Number [facility] [address] [place] [address], [place] [phone] * Vitamin D 25 hydroxy (01/30/2025 1:29 PM EDT) Vit D, 25-Hydroxy 39.1 30.0 - 80.0 ng/mL LAB CHEMISTRY METHOD 01/30/2025 7:[address] [facility] Blood Venous blood specimen / Unknown Venipuncture / Unknown 01/30/2025 1:29 PM EDT 01/30/2025 1:29 PM EDT us Gisell PRADHAN LAB BLOOD ORDERABLES Final Resul t [facility] [address] [place] [address], [place] [phone] * Immunofixation electrophoresis serum (01/30/2025 1:29 PM EDT) [facility] Immunofixation Result, Serum IgM [place] monoclonal immunoglobulins detected. LAB CHEMISTRY METHOD 02/04/2025 1:[address] [facility] Blood Venous blood specimen / Unknown Venipuncture / Unknown 01/30/2025 1:29 PM EDT 01/30/2025 1:29 PM EDT Carlita Villegas MD LAB BLOOD ORDERABLES Final Resul t Performing Organization Address [facility] Co de Phone Number [facility] [address] [place] [address], [place] [phone] * Immunoglobulins IgG, IgA, IgM (01/30/2025 1:29 PM EDT) Pathologist [facility] Total IgG 1,260 549 - 1,584 mg/dL LAB CHEMISTRY METHOD 02/04/2025 10:[address] [facility] IgA 170 61 - 348 mg/dL LAB CHEMISTRY METHOD 02/04/2025 10:[address] [facility] IgM 232 23 - 259 mg/dL LAB CHEMISTRY METHOD 02/04/2025 10:[address] [facility] Blood Venous blood specimen / Unknown Venipuncture / Unknown 01/30/2025 1:29 PM EDT 01/30/2025 1:29 PM EDT Carlita Villegas MD LAB BLOOD ORDERABLES Final Resul t Performing Organization Address [facility]/ZIP Co de Phone Number [facility] [address] [place] [address], [place] [phone] * Protein electrophoresis, serum (01/30/2025 1:29 PM EDT) Total Protein 7.5 6.0 - 8.0 g/dL LAB CHEMISTRY METHOD 02/04/2025 1:[address] [facility] Albumin, Serum 3.7 2.9 - 4.1 g/dL LAB CHEMISTRY METHOD 02/04/2025 1:[address] [facility] Alpha 1 Globulin (g/dL) 0.3 0.1 - 0.5 g/dL LAB CHEMISTRY METHOD 02/04/2025 1:[address] [facility] Alpha 2 Globulin (g/dL) 1.1 0.7 - 1.5 g/dL LAB CHEMISTRY METHOD 02/04/2025 1:[address] [facility] Beta (g/dL) 0.9 0.7 - 1.5 g/dL LAB CHEMISTRY METHOD 02/04/2025 1:[address] [facility] Gamma Globulin (g/dL) 1.5 0.7 - 1.9 g/dL LAB CHEMISTRY METHOD 02/04/2025 1:[address] [facility] PARAPROTEIN LAB CHEMISTRY METHOD 02/04/2025 1:[address] [facility] Comment:Immeasurable SPEP Interpretation Monoclonal gammopathy Abnormal pattern with immeasurable M-spike of gamma globulin mobility. Serum Immunofixation performed on this specimen demonstrated IgM [place] monoclonal protein. LAB CHEMISTRY METHOD 02/04/2025 1:[address] [facility] Blood Venous blood specimen / Unknown Venipuncture / Unknown 01/30/2025 1:29 PM EDT 01/30/2025 1:29 PM EDT us Gisell PRADHAN LAB BLOOD ORDERABLES Final Resul t [facility] [address] [place] [address], * Protein, total (01/30/2025 1:29 PM EDT) Total Protein 7.5 6.0 - 8.0 g/dL LAB CHEMISTRY METHOD 01/30/2025 7:[address] [facility] Blood Venous blood specimen / Unknown Venipuncture / Unknown 01/30/2025 1:29 PM EDT 01/30/2025 1:29 PM EDT us Gisell PRADHAN LAB BLOOD ORDERABLES Final Resul t Performing Organization Address City/[facility] Co de Phone Number [facility] [address] [place] [address], [place] [phone] * Phosphorus (01/30/2025 1:29 PM EDT) Phosphorus 3.8 2.5 - 4.5 mg/dL LAB CHEMISTRY METHOD 01/30/2025 7:[address] [facility] Blood Venous blood specimen / Unknown Venipuncture / Unknown 01/30/2025 1:29 PM EDT 01/30/2025 1:29 PM EDT us Gisell PRADHAN LAB BLOOD ORDERABLES Final Resul t Performing Organization Address [facility] Co de Phone Number [facility] [address] [place] [address], [place] [phone] * Parathyroid hormone intact (01/30/2025 1:29 PM EDT) PTH 83.3 18.5 - 88.0 pcg/mL LAB CHEMISTRY METHOD 01/30/2025 7:[address] [facility] Blood Venous blood specimen / Unknown Venipuncture / Unknown 01/30/2025 1:29 PM EDT 01/30/2025 1:29 PM EDT us Gisell PRADHAN LAB BLOOD ORDERABLES Final Resul t [facility] [address] [place] [address], [place] [phone] * (ABNORMAL) Lipid panel with reflex to direct LDL (11/17/2024 5:21 AM EDT) Cholesterol 178 0 - 200 mg/dL LAB CHEMISTRY METHOD 11/17/2024 11:[address] [facility] Triglycerides 122 0 - 150 mg/dL LAB CHEMISTRY METHOD 11/17/2024 11:[address] [facility] HDL 51 >=40 mg/dL LAB CHEMISTRY METHOD 11/17/2024 11:[address] [facility] LDL Calculated 103(H) 0 - 100 mg/dL LAB CHEMISTRY METHOD 11/17/2024 11:[address] [facility] VLDL Cholesterol Waldemar 24.4 mg/dL LAB CHEMISTRY METHOD 11/17/2024 11:[address] [facility] Non HDL Chol. (LDL+VLDL) 127 <145 mg/dL LAB CHEMISTRY METHOD 11/17/2024 11:[address] [facility] Chol/HDL Ratio 3.5 0.0 - 4.4 LAB CHEMISTRY METHOD 11/17/2024 11:[address] [facility] Blood Venous blood specimen / Unknown Venipuncture / Unknown 11/17/2024 5:21 AM EDT 11/17/2024 10:33 AM EDT us Giovanni Coffey MD LAB BLOOD ORDERABLES Final Resul t Performing Organization Address City/[facility]/ZIP Co de Phone Number [facility] [address] [place] [address], [place] [phone] * DXA BONE DENSITY STUDY 1+ SITS [...] exam(s): 06/14/2020. 5.3% increase in lumbar spine bone mineral density which is statistically significant at the 95% confidence level. No statistically significant change in left hip bone mineral density. IMPRESSION: IMPRESSION: Osteoporosis by WHO criteria. [facility] Department of Internal Medicine recommends [...] alternative screening schedule based on may Amaya., [facility] August 24, 2011 for patients [...] IMPRESSION: IMPRESSION: Osteoporosis by WHO criteria. [facility] Department of Internal Medicine recommendsusing [...] -1.50 and higher), BMD testingevery 15 years us Lizbeth PRADHAN IMG DXA PROCEDURES Final Result * Colonoscopy (05/08/2017) Colonoscopy no interpretatio n, abstacted Anatomical Region Laterality Modality Other us Historical Provider HEALTH MAINTENANCE Final Result from Last 3 Months or Most Recently Relevant to Health Maintenance Insurance MEDICARE [facility] Advance Directives * Full Code - Confirmed (Latest Code Status on File) Date Activated Date Inactivated Comments 01/30/2025 1:03 PM This code stat us was ascertained in the following way: Code status discussion: per living will or healthcare instructions. MOLST form To update the patient's code status, place a code status order. Do not modify or discontinue any currently active code status orders. Care Teams Sql Consultant Relationship Specialty Start Date End Date Carlita Villegas MD [address] [place] [address] [phone] PCP - General 08/25/22
--- OUTSIDE RECORDS SUMMARY | 2025-04-17 08:42 | XMS_ITS | Patient Health Record ---
Author Organization [facility] Address [address] [place] [address] Support Name Relationship Address Phone KEVIN PFEIFFER Guarantor Unknown [phone] Reason For Referral No Information Medications Medication [...] Status W/U Status Risk Notes Problem Osteoarthritis (437032967) Osteoarthrosis, unspecified whether generalized or localized, unspecified site (715.90) Active confirmed Major Problem Osteoporosis (19338754) Unspecified osteoporosis (733.00) Active confirmed Major Problem Gynecological examination normal (395356743272754) Routine gynecological examination (V72.31) Active confirmed Diag Plan Of Treatment No Information Insurance Providers Payer Name Payer Address Payer Phone Subscriber Number Group Number Insured Name Patient Relationship to Insured Coverage Start Date Coverage End Date [employer] [facility] [address] [place] [address] [id number] KEVIN PFEIFFER Self - patient is the insured
--- OUTSIDE RECORDS SUMMARY | 2025-04-17 08:42 | XMS_ITS | Encounter Summary ---
Author Organization [facility] Address [address] [place] [phone] Care Team Providers Care Interventionist Name Role Phone Carlita Villegas MD Primary Care Provider [phone] Encounter Details Date Type Department Care Team (Late st Contact Info) Description 11/15/2024 Lab Requisition [facility] [address] [facility] [place] [address] Giovanni Coffey MD [address] [place] [phone] Essential (primary) hypertension; Hyperlipidemia, unspecified Social [...] [facility] On[facility] [address] [place] [address] Demetrius Parkinson MD [address] [place] [address] 05/27/2025 9:[address] [facility] Bone Density [address] [place] [address] 06/17/2025 10:00 AM EST Office Visit Endocrinology [address] [phone] Gisell Villegas PA [address] [place], [place] 07/31/2025 1:15 PM EST Office Visit Adult Medicine [place] - [address] [phone] Carlita Villegas MD [address] [place] [address] 08/26/2025 10:00 AM EST Office Visit Vascular Surgery [facility] [address] [place] [address] Priya Lopez MD [address] [place] [phone] documented as of this encounter Procedures Procedure [...] LAB CHEMISTRY METHOD 11/17/2024 11:55 AM EDT [facility] Blood Venous blood specimen / Unknown Venipuncture / Unknown 11/17/2024 5:21 AM EDT 11/17/2024 10:33 AM EDT us Giovanni Coffey MD LAB BLOOD ORDERABLES Final Resul t Performing Organization Address City/[facility]/ZIP Co de Phone Number [facility] [address] [place] [address], [place] [phone] * (ABNORMAL) Lipid panel with reflex to direct LDL (11/17/2024 5:21 AM EDT) Cholesterol 178 0 - 200 mg/dL LAB CHEMISTRY METHOD [facility]/17[facility]24 [facility] Triglycerides 122 0 - 150 mg/dL LAB CHEMISTRY METHOD 11/17/2024 11:55 AM [facility] HDL 51 >=40 mg/dL LAB CHEMISTRY METHOD 11/17/2024 11:55 AM EDT [facility] LDL Calculated 103(H) 0 - 100 mg/dL LAB CHEMISTRY METHOD 11/17/2024 11:55 AM EDT [facility] VLDL Cholesterol Waldemar 24.4 mg/dL LAB CHEMISTRY METHOD 11/17/2024 11:55 AM [facility] Non HDL Chol. (LDL+VLDL) 127 <145 mg/dL LAB CHEMISTRY METHOD 11/17/2024 11:55 AM EDT [facility] Chol/HDL Ratio 3.5 0.0 - 4.4 LAB CHEMISTRY METHOD 11/17/2024 11:55 AM [facility] Blood Venous blood specimen / Unknown Venipuncture / Unknown 11/17/2024 5:21 AM EDT 11/17/2024 10:33 AM EDT us Giovanni Coffey MD LAB BLOOD ORDERABLES Final Resul t Performing Organization Address City/[facility]/ZIP Co de Phone Number [facility] [address] [place] [address], [place] [phone] * (ABNORMAL) Comprehensive metabolic panel (11/17/2024 5:21 AM EDT) Sodium 139 133 - 145 mmol/L LAB CHEMISTRY METHOD 11/17/2024 11:55 AM [facility] Potassium 4.0 3.5 - 5.5 mmol/L LAB CHEMISTRY METHOD 11/17/2024 11:55 AM [facility] Chloride 105 96 - 110 mmol/L LAB CHEMISTRY METHOD 11/17/2024 11:55 AM [facility] CO2 28 21 - 32 mmol/L LAB CHEMISTRY METHOD 11/17/2024 11:55 AM [facility] Anion Gap 6 3 - 11 LAB CHEMISTRY METHOD 11/17/2024 11:55 AM [facility] Glucose 76 70 - 100 mg/dL LAB CHEMISTRY METHOD 11/17/2024 11:55 AM [facility] BUN 14 5 - 25 mg/dL LAB CHEMISTRY METHOD 11/17/2024 11:55 AM [facility] Creatinine 0.68 0.50 - 1.10 mg/dL LAB CHEMISTRY METHOD 11/17/2024 11:55 AM [facility] eGFR 88 >=60 mL/min/1. 73m2 LAB CHEMISTRY METHOD 11/17/2024 11:55 AM [facility] Comment:Calculation based on the Chronic Kidney Disease Epidemiology Collaboration (CKD-EPI) equation refit without adjustment for race. BUN/Creatinine Ratio 20.6 LAB CHEMISTRY METHOD 11/17/2024 11:55 AM [facility] Calcium 8.7 8.5 - 10.5 mg/dL LAB CHEMISTRY METHOD 11/17/2024 11:55 AM [facility] AST (SGOT) 18 10 - 42 unit/L LAB CHEMISTRY METHOD 11/17/2024 11:55 AM EDT [facility] ALT (SGPT) 22 10 - 60 unit/L LAB CHEMISTRY METHOD 11/17/2024 11:55 AM EDT [facility] Alkaline Phosphatase 100 42 - 121 unit/L LAB CHEMISTRY METHOD 11/17/2024 11:55 AM [facility] Total Protein 6.3 6.0 - 8.0 g/dL LAB CHEMISTRY METHOD 11/17/2024 11:55 AM [facility] Albumin 3.1(L) 3.2 - 5.0 g/dL LAB CHEMISTRY METHOD 11/17/2024 11:55 AM [facility] Total Bilirubin 0.4 0.0 - 1.4 mg/dL LAB CHEMISTRY METHOD 11/17/2024 11:55 AM [facility] Blood Venous blood specimen / Unknown Venipuncture / Unknown 11/17/2024 5:21 AM EDT 11/17/2024 10:33 AM EDT us Giovanni Coffey MD LAB BLOOD ORDERABLES Final Resul t [facility] [address] [place] [address], [place] [phone] * (ABNORMAL) Complete blood count (11/17/2024 5:21 AM EDT) WBC 5.1 4.8 - 10.8 K/mcL LAB HEMETOLOGY METHOD 11/17/2024 11:19 AM T [facility] RBC 3.40(L) 3.80 - 4.80 M/mcL LAB HEMETOLOGY METHOD 11/17/2024 11:19 AM [facility] Hemoglobin 10.8(L) 11.5 - 16.0 g/dL LAB HEMETOLOGY METHOD 11/17/2024 11:19 AM EDT [facility] Hematocrit 33.3(L) 35.0 - 47.0 % LAB HEMETOLOGY METHOD 11/17/2024 11:19 AM EDT [facility] MCV 97.1 79.0 - 98.0 FL LAB HEMETOLOGY METHOD 11/17/2024 11:19 AM EDT [facility] MCH 31.5 27.0 - 32.0 pcg LAB HEMETOLOGY METHOD 11/17/2024 11:19 AM EDT [facility] MCHC 32.4 32.0 - 37.0 g/dL LAB HEMETOLOGY METHOD 11/17/2024 11:19 AM EDT [facility] RDW 13.5 11.0 - 15.0 % LAB HEMETOLOGY METHOD 11/17/2024 11:19 AM EDT [facility] Platelets 194 130 - 400 K/mcL LAB HEMETOLOGY METHOD 11/17/2024 11:19 AM EDT [facility] MPV 10.8 7.0 - 11.0 FL LAB HEMETOLOGY METHOD 11/17/2024 11:19 AM EDT [facility] NRBC 0.0 <1.0 % LAB HEMETOLOGY METHOD 11/17/2024 11[facility] NRBC Absolute 0.00 <0.10 K/mcL LAB HEMETOLOGY METHOD 11/17/2024 11:19 AM EDT [facility] Blood Venous blood specimen / Unknown Venipuncture / Unknown 11/17/2024 5:21 AM EDT 11/17/2024 10:33 AM EDT us Giovanni Coffey MD LAB BLOOD ORDERABLES Final Resul t [facility] [address] [place] [address], documented in this encounter Visit Diagnoses Diagnosis Essential (primary) hypertension Unspecified essential hypertension Hyperlipidemia, unspecified documented in this encounter Care Teams Interventionist Relationship Specialty Start Date End Date Carlita Villegas MD [address] [place] [phone] PCP - General 08/25/22 documented as of this encounter
== END 2025-04-17 08:21 | disposition home or self-care (01) ==
LOC: HO.HOSX 08:20
DX: S32.10XD Unspecified fracture of sacrum, subsequent encounter for fracture with routine healing (principal); S32.591D Other specified fracture of right pubis, subsequent encounter for fracture with routine healing; X58.XXXD Exposure to other specified factors, subsequent encounter
CPT/HCPCS: 72170; 99212

== ENCOUNTER 2025-04-17 12:46 | Outpatient (AMB) | payer MEDICARE, SELFPAY ==
--- NOTE | 2025-04-17 12:55 | A.OFFVIS_ITS ---
Vital Signs 04/17/25 12:56 Height 5 ft 3 in Weight 140 lb BMI 24.8 Intake Visit Reasons: OV: I&D &ORIF of RT distal radius and ulna-10/13/24 Intake Note: Dayna is a 79 year old female who presents today for follow up status post Right Distal Radius and Ulnar Shaft ORIF and I&D, DOS: 10/13/[address] Zamorano. Patient complains today of pain all around the wrist. She is taking Tylenol PRN with relief of pain. Allergies azithromycin Adverse Reaction (Verified 04/17/25 13:06) Stomach Upset doxycycline Adverse Reaction (Verified 04/17/25 13:06) Gastrointestinal Upset sulfamethoxazole (From Bactrim) Adverse Reaction (Verified 04/17/25 13:06) Stomach Upset trimethoprim (From Bactrim) Adverse Reaction (Verified 04/17/25 13:06) Stomach Upset HPI HPI OV: I&D &ORIF of RT distal radius and ulna-10/13/24: Details: Dayna is a 79 year old female who presents today for follow up status post Right Distal Radius and Ulnar Shaft ORIF and I&D, DOS: 10/13/[address] Zamorano. Patient complains today of pain all around the wrist. She is taking Tylenol PRN with relief of pain. [facility] Medical History Enlarged aorta Osteoporosis Allergies Elevated cholesterol PONV (postoperative nausea and vomiting) HTN (hypertension) Surgical History Hx of colonoscopy Hx of left cataract extraction Hx of hysterectomy Hx of tonsillectomy Social History Household Members: None Housing: House Do you presently have visiting nurse or other home services: No Unable to assess alcohol history related to: Unknown Alcohol intake: never Patient Tobacco Use Status: Former Tobacco user Second Hand Smoke Exposure: No Advance Directives Date on File: 11/29/23 service: No Current occupational status: retired Current occupation: right hand dominant Physical Exam Vital Signs: BMI result Body Mass Index 24.8 Extrem Other: Patient's right hip, pelvis, upper right leg normal to inspection No erythema, ecchymosis, edema noted No lacerations, abrasions, open areas No evidence of infection Patient was able to flex and extend the digits of the right foot fully and without difficulty Distal sensation intact Capillary refill brisk Patient is alert, oriented, and in no acute distress. Neuro: Normal sensation of the tips of all digits of the right hand at this time Vascular: Cap refill brisk Pain: No tenderness to palpation about fracture sites on the right wrist ROM: Patient is able to make closed fist and extend all digits right fully Skin: Well approximated well healing incision site noted on the volar right wrist Well approximated and well healed laceration site on the ulnar right wrist Incision sites well healed General: No ecchymosis, erythema, or evidence of infection. Psych: Appears grossly normal Affect normal Attitude cooperative Results Reviewed Results Reviewed: X-rays obtained in the office today and independently reviewed by me, Luke López PA-C, demonstrate nondisplaced fractures of right superior pubic ramus and right sacral ala in very similar alignment to previous x-rays taken in the emergency department with evidence of good bony healing. Assessment & Plan Assessment & Plan (1) Fracture of sacrum: Code(s): S32.10XA - Unspecified fracture of sacrum, initial encounter for closed fracture Category: Medical (2) Closed fracture of pubic ramus: Code(s): S32.599A - Other specified fracture of unspecified pubis, initial encounter for closed fracture Category: Medical Plan 1. Right sacral ala fracture 2. Right superior pubic ramus fracture Date of injury 10/10/2024 Patient is educated about these injuries Patient was educated about the typical recovery course At this time, patient was informed that she can continue with weight-bearing as tolerated Continue working with PT Follow-up as needed with any acute concerns 1. Open right distal rupture 2. Open right distal ulna fracture Status post ORIF DOS 10/13/2024 Patient appears to be recovering well postoperatively Patient was educated about the typical recovery course No further splinting indicated Patient may resume full normal lifting Continue with therapy exercises to improve range of motion Patient was amenable to this plan Follow-up as needed Orders: Orders XR pelvis 1-2V Today M25.559 - Pain in unspecified hip Coding Level of Care Code Est Pt Level 3 (79848) Diagnoses Fracture of sacrum S32.10XA Closed fracture of pubic ramus S32.599A
[2025-04-17 12:56] VITALS: BMI 24.8
== END 2025-04-17 13:18 | disposition home or self-care (01) ==
DX: S32.10XA Unspecified fracture of sacrum, initial encounter for closed fracture (principal); S32.599A Other specified fracture of unspecified pubis, initial encounter for closed fracture
CPT/HCPCS: 99213

== ENCOUNTER → 2025-04-17 12:48 | Outpatient (BNV) | payer MEDICARE, SELFPAY | PROVIDERS: Visit Provider Radiology Diagnostic Radiology | DX: S32.43 Fracture of anterior column [iliopubic] of acetabulum (principal) | CPT/HCPCS: 72170 ==